=== PATIENT | female | born 1950 | race Hispanic/Latino ===

== ENCOUNTER 2021-02-12 10:30 | Inpatient (IN) | payer MEDICARE, OTHER ==
[2021-02-12] MEDS ORDERED: SUCCINYLCHOLINE CHLORIDE 200 MG/10 ML INJ MDV ONE (10:33)
[2021-02-12] MEDS ORDERED: ETOMIDATE 20 MG/10 ML INJ IV ONE ×2 (10:33→10:36)
[2021-02-12] MEDS ORDERED: SUCCINYLCHOLINE CHLORIDE 200 MG/10 ML INJ MDV IV ONE (10:36)
[2021-02-12] MEDS ORDERED: MINERAL OIL/PETROLATUM, WHITE OPHTH OINT 3.5 GM OU PRN (10:49)
[2021-02-12] MEDS ORDERED: LIP THERAPY VASELINE TP PRN (10:49)
--- NOTE | 2021-02-12 10:56 | Emergency Department Report ---
ED Altered Mental Status HPI - General Stated Complaint: DIFFICULTY BREATHING Time Seen by Provider: 02/12/21 10:47 Source: EMS - History of Present Illness Initial Comments: Patient is 71 years old female with history of congestive heart failure. Patient brought to the emergency room via EMS from home for evaluation of altered mental status and difficulty in breathing. EMS stated that patient initially was confused and then she became unresponsive. Upon arrival to the ER patient is altered, confused and pulling her lines and BiPAP. Oxygen saturation is 70% on BiPAP. Immediate decision to intubate is made by me. Using a glide scope patient immediately intubated and I visualized the tube passing through the vocal cords. Patient then became PEA and ACLS protocol immediately initiated and patient received 2 rounds of CPR, epinephrine sodium bicarb and calcium chloride. Patient regained her pulse. Unable to obtain any more information at this moment. MD Complaint: altered mental status, confusion, decreased responsiveness -: This morning Consistency of Symptoms: getting worse - Related Data Home Medications Medication Instructions Recorded Confirmed Last Taken AtorvaSTATin [Lipitor] 40 mg PO QHS 02/12/21 02/12/21 Unknown Metoprolol Succinate [Kapspargo 25 mg PO QDAY 02/12/21 02/12/21 Unknown Sprinkle] Spironolactone [Aldactone] 25 mg PO QDAY 02/12/21 02/12/21 Unknown amLODIPine [Norvasc] 5 mg PO DAILY 02/12/21 02/12/21 Unknown glipiZIDE [Glucotrol] 5 mg PO BID 02/12/21 02/12/21 Unknown metFORMIN [Glucophage] 100 mg PO QDAY 02/12/21 02/12/21 Unknown Allergies Allergy/AdvReac Type Severity Reaction Status Date / Time Unable to Assess Allergy Unverified 02/12/21 12:42 ED Review of Systems ROS: Stated complaint: DIFFICULTY BREATHING Other details as noted in HPI Comment: Unobtainable due to pts medical conditions ED Past Medical Hx - Medications Home Medications: Home Medications Medication Instructions Recorded Confirmed Last Taken Type AtorvaSTATin [Lipitor] 40 mg PO QHS 02/12/21 02/12/21 Unknown History Metoprolol Succinate [Kapspargo 25 mg PO QDAY 02/12/21 02/12/21 Unknown History Sprinkle] Spironolactone [Aldactone] 25 mg PO QDAY 02/12/21 02/12/21 Unknown History amLODIPine [Norvasc] 5 mg PO DAILY 02/12/21 02/12/21 Unknown History glipiZIDE [Glucotrol] 5 mg PO BID 02/12/21 02/12/21 Unknown History metFORMIN [Glucophage] 100 mg PO QDAY 02/12/21 02/12/21 Unknown History ED Physical Exam - General Limitations: Altered Mental Status General appearance: obtunded, in distress - Head Head exam: Present: atraumatic, normocephalic, normal inspection - Eye Eye exam: Present: normal appearance, PERRL - ENT ENT exam: Present: normal exam, normal orophraynx, mucous membranes moist - Neck Neck exam: Present: normal inspection, full ROM. Absent: tenderness, meningismus - Respiratory Respiratory exam: Present: respiratory distress, rales, rhonchi, accessory muscle use, decreased breath sounds, prolonged expiratory - Cardiovascular Cardiovascular Exam: Present: tachycardia - GI/Abdominal GI/Abdominal exam: Present: soft. Absent: distended - Extremities Exam Extremities exam: Present: normal inspection, normal capillary refill, pedal edema - Neurological Exam Neurological exam: Present: altered - Skin Skin exam: Present: warm, intact, ecchymosis ED Course Vital Signs 02/12/21 02/12/21 02/12/21 10:34 10:46 10:58 Temperature Pulse Rate 134 H 118 H Respiratory 21 Rate Blood Pressure 131/80 126/78 O2 Sat by Pulse 74 L 99 100 Oximetry 02/12/21 02/12/21 02/12/21 11:00 11:38 11:45 Temperature Pulse Rate 118 H 116 H 84 Respiratory 20 14 21 Rate Blood Pressure 126/78 142/41 131/80 O2 Sat by Pulse 100 93 Oximetry 02/12/21 02/12/21 02/12/21 12:01 12:15 12:31 Temperature Pulse Rate 80 121 H 127 H Respiratory 18 23 14 Rate Blood Pressure 72/32 120/33 97/79 O2 Sat by Pulse 100 100 100 Oximetry 02/12/21 02/12/21 02/12/21 12:45 13:00 13:15 Temperature Pulse Rate 122 H 113 H 112 H Respiratory 18 13 17 Rate Blood Pressure 94/53 100/40 100/30 O2 Sat by Pulse 100 100 100 Oximetry 02/12/21 02/12/21 02/12/21 13:31 13:45 13:47 Temperature 97.7 F Pulse Rate 97 H Respiratory 13 16 Rate Blood Pressure 92/36 103/50 O2 Sat by Pulse 100 100 Oximetry 02/12/21 14:08 Temperature Pulse Rate 97 H Respiratory 32 H Rate Blood Pressure 123/105 O2 Sat by Pulse 100 Oximetry - Reevaluation(s) Reevaluation #1: 02/12/21 14:02 Patient extubated herself. Patient now is alert and oriented and asking if he can lift the head of the bed up. I will give her a trial of BiPAP. Reevaluation #2: 02/12/21 14:20 I discussed the patient with Mr. Balderrama, patient . He stated that she was complaining of shortness of breath for the last week however her symptoms get worse this morning. He stated that she was admitted for 1/2 years ago at [facility] for double pneumonia. He stated that at that time they told him that she has mild congestive heart failure. He stated that approximately 1 year ago she required thoracocentesis in the pole approximately 3 L of fluids from her lung and she felt much better after that. He stated that she is fully vaccinated against COVID-19. He stated that the second dose of Pfizer she got November 13. He is not sure if the patient is full code or DNR. He stated that he will look in her paper and he will let us know. - Central Line Placement Right IJ Consent Obtained: emergent situation Time Out Performed: Yes Patient Placed on Monitor/Pulse Ox: Yes MD Prep: mask, gown, gloves Central Line Prep: Povidone-Iodine 1%, Chlorhexidine scrub, sterile drapes applied Local Anesthesia Used: Lidocaine 1% Ultrasound Used for Placement: Yes Central Line Lumen Inserted: triple Reason for Insertion: Volume Resuscitation Bloods Obtained for Lab: Yes Central Line Position: good blood return, sutured in place with 2-0 Dressing Applied: Tegaderm, sterile gauze/tape Post Procedure X-Ray: tip of catheter in good p Patient Tolerated Procedure: well, no complications Complications: none - Intubation Time Out Performed: Yes Sedative: Etomidate Paralytic: Succinylcholine Laryngoscope: Bakari Size: 4 ET Tube Size: 7.5 Tube Placement Confirmation: visualized tube passing t, equal breath sounds bilat, no breath sounds over epi, confirmation by capnometr Patient Tolerated Procedure: well, no complications Intubation Complications: none - Lab Data Result diagrams: 02/12/21 14:25 02/12/21 12:20 Lab Results 02/12/21 02/12/21 02/12/21 Range/Units 10:45 11:59 12:20 WBC (4.5-11.0) K/mm3 RBC (3.65-5.03) M/mm3 Hgb (10.1-14.3) gm/dl Hct (30.3-42.9) % MCV (79-97) fl MCH (28-32) pg MCHC (30-34) % RDW (13.2-15.2) % Plt Count (140-440) K/mm3 Seg Neutrophils % PT (12.2-14.9) Sec. INR (0.87-1.13) APTT (24.2-36.6) Sec. ABG pH 7.265 L (7.320-7.450) POC ABG pCO2 49.9 H (32.0-48.0) mmHg POC ABG pO2 168.3 H (83-108) mmHg POC ABG HCO3 22.1 ABG O2 Saturation 99.1 (0-100) POC ABG Base Excess -4.8 ABG Hemoglobin 10.1 L (12.0-17.5) ABG Oxyhemoglobin 98.5 H (94-98) ABG Methemoglobin 0.3 (0.0-1.5) ABG Sodium 138.1 (136.0-145.0) mmol/L ABG Potassium 4.5 (3.40-4.50) mmol/L ABG Chloride 105.0 (98-107) mmol/L ABG Glucose 330 H (65-95) mg/dL Carboxyhemoglobin 0.3 L (0.5-1.5) FiO2 % 100.0 Sodium (137-145) mmol/L Potassium (3.6-5.0) mmol/L Chloride (98-107) mmol/L Carbon Dioxide (22-30) mmol/L Anion Gap mmol/L BUN (7-17) mg/dL Creatinine (0.6-1.2) mg/dL Estimated GFR ml/min BUN/Creatinine Ratio % Glucose (65-100) mg/dL POC Glucose 291 H (70-105) mg/dL Lactic Acid (0.7-2.0) mmol/L Calcium (8.4-10.2) mg/dL Total Bilirubin (0.1-1.2) mg/dL Direct Bilirubin (0-0.2) mg/dL Indirect Bilirubin mg/dL AST (5-40) units/L ALT (7-56) units/L Alkaline Phosphatase (35-129) units/L Ammonia (25-60) umol/L Troponin T 0.058 H (0.00-0.029) ng/mL NT-Pro-B Natriuret Pep (0-900) pg/mL Total Protein (6.3-8.2) g/dL Albumin (3.9-5) g/dL Albumin/Globulin Ratio % Triglycerides (2-149) mg/dL Cholesterol (50-199) mg/dL LDL Cholesterol Direct (50-130) mg/dL HDL Cholesterol (40-59) mg/dL Cholesterol/HDL Ratio % Arterial Blood Glucose 330 H (65-95) mg/dL Arterial Blood Ionized Calcium 5.1 (4.6-5.3) mg/dL 02/12/21 02/12/21 02/12/21 Range/Units 12:20 12:20 12:20 WBC (4.5-11.0) K/mm3 RBC (3.65-5.03) M/mm3 Hgb (10.1-14.3) gm/dl Hct (30.3-42.9) % MCV (79-97) fl MCH (28-32) pg MCHC (30-34) % RDW (13.2-15.2) % Plt Count (140-440) K/mm3 Seg Neutrophils % PT 13.8 (12.2-14.9) Sec. INR 1.01 (0.87-1.13) APTT 22.9 L (24.2-36.6) Sec. ABG pH (7.320-7.450) POC ABG pCO2 (32.0-48.0) mmHg POC ABG pO2 (83-108) mmHg POC ABG HCO3 ABG O2 Saturation (0-100) POC ABG Base Excess ABG Hemoglobin (12.0-17.5) ABG Oxyhemoglobin (94-98) ABG Methemoglobin (0.0-1.5) ABG Sodium (136.0-145.0) mmol/L ABG Potassium (3.40-4.50) mmol/L ABG Chloride (98-107) mmol/L ABG Glucose (65-95) mg/dL Carboxyhemoglobin (0.5-1.5) FiO2 % Sodium 142 (137-145) mmol/L Potassium 4.7 (3.6-5.0) mmol/L Chloride 103.1 (98-107) mmol/L Carbon Dioxide 21 L (22-30) mmol/L Anion Gap 23 mmol/L BUN 20 H (7-17) mg/dL Creatinine 1.7 H (0.6-1.2) mg/dL Estimated GFR 30 ml/min BUN/Creatinine Ratio 12 % Glucose 278 H (65-100) mg/dL POC Glucose (70-105) mg/dL Lactic Acid 4.50 H* (0.7-2.0) mmol/L Calcium 9.9 (8.4-10.2) mg/dL Total Bilirubin 0.60 (0.1-1.2) mg/dL Direct Bilirubin 0.3 H (0-0.2) mg/dL Indirect Bilirubin 0.3 mg/dL AST 38 (5-40) units/L ALT 19 (7-56) units/L Alkaline Phosphatase 68 (35-129) units/L Ammonia (25-60) umol/L Troponin T 0.056 H (0.00-0.029) ng/mL NT-Pro-B Natriuret Pep (0-900) pg/mL Total Protein 6.4 (6.3-8.2) g/dL Albumin 3.4 L (3.9-5) g/dL Albumin/Globulin Ratio 1.1 % Triglycerides 94 (2-149) mg/dL Cholesterol 99 (50-199) mg/dL LDL Cholesterol Direct 40 L (50-130) mg/dL HDL Cholesterol 42 (40-59) mg/dL Cholesterol/HDL Ratio 2.35 % Arterial Blood Glucose (65-95) mg/dL Arterial Blood Ionized Calcium (4.6-5.3) mg/dL 02/12/21 02/12/21 02/12/21 Range/Units 12:20 12:20 14:25 WBC 30.4 H (4.5-11.0) K/mm3 RBC 3.34 L (3.65-5.03) M/mm3 Hgb 9.2 L (10.1-14.3) gm/dl Hct 31.5 (30.3-42.9) % MCV 94 (79-97) fl MCH 28 (28-32) pg MCHC 29 L (30-34) % RDW 17.0 H (13.2-15.2) % Plt Count 458 H (140-440) K/mm3 Seg Neutrophils % Academic Interventionist PT (12.2-14.9) Sec. INR (0.87-1.13) APTT (24.2-36.6) Sec. ABG pH (7.320-7.450) POC ABG pCO2 (32.0-48.0) mmHg POC ABG pO2 (83-108) mmHg POC ABG HCO3 ABG O2 Saturation (0-100) POC ABG Base Excess ABG Hemoglobin (12.0-17.5) ABG Oxyhemoglobin (94-98) ABG Methemoglobin (0.0-1.5) ABG Sodium (136.0-145.0) mmol/L ABG Potassium (3.40-4.50) mmol/L ABG Chloride (98-107) mmol/L ABG Glucose (65-95) mg/dL Carboxyhemoglobin (0.5-1.5) FiO2 % Sodium (137-145) mmol/L Potassium (3.6-5.0) mmol/L Chloride (98-107) mmol/L Carbon Dioxide (22-30) mmol/L Anion Gap mmol/L BUN (7-17) mg/dL Creatinine (0.6-1.2) mg/dL Estimated GFR ml/min BUN/Creatinine Ratio % Glucose (65-100) mg/dL POC Glucose (70-105) mg/dL Lactic Acid (0.7-2.0) mmol/L Calcium (8.4-10.2) mg/dL Total Bilirubin (0.1-1.2) mg/dL Direct Bilirubin (0-0.2) mg/dL Indirect Bilirubin mg/dL AST (5-40) units/L ALT (7-56) units/L Alkaline Phosphatase (35-129) units/L Ammonia 39.0 (25-60) umol/L Troponin T (0.00-0.029) ng/mL NT-Pro-B Natriuret Pep 6717 H (0-900) pg/mL Total Protein (6.3-8.2) g/dL Albumin (3.9-5) g/dL Albumin/Globulin Ratio % Triglycerides (2-149) mg/dL Cholesterol (50-199) mg/dL LDL Cholesterol Direct (50-130) mg/dL HDL Cholesterol (40-59) mg/dL Cholesterol/HDL Ratio % Arterial Blood Glucose (65-95) mg/dL Arterial Blood Ionized Calcium (4.6-5.3) mg/dL - EKG Data -: EKG Interpreted by Me EKG shows normal: sinus rhythm Rate: tachycardia Interpretation: no acute changes - Radiology Data Radiology results: report reviewed - Medical Decision Making Patient is 71 years old female with history of congestive heart failure. Patient brought to the emergency room via EMS from home for evaluation of altered mental status and difficulty in breathing. EMS stated that patient initially was confused and then she became unresponsive. Upon arrival to the ER patient is altered, confused and pulling her lines and BiPAP. Oxygen saturation is 70% on BiPAP. Immediate decision to intubate is made by me. Using a glide scope patient immediately intubated and I visualized the tube passing through the vocal cords. Patient then became PEA and ACLS protocol immediately initiated and patient received 2 rounds of CPR, epinephrine sodium bicarb and calcium chloride. Patient regained her pulse. Unable to obtain any more information at this moment. Labs reviewed and showed a white blood cells of 30,000. Patient received Zosyn. Sepsis protocol initiated. Lactic acid is 4.2. Chest x-ray showed bilateral pleural effusion with pulmonary edema. I discussed the patient with Dr. Daugherty, he agreed to admit the patient to medical service for further management. Critical Care Time: Yes Critical care time in (mins) excluding proc time.: 45 Critical care attestation.: If time is entered above; I have spent that time in minutes in the direct care of this critically ill patient, excluding procedure time. ED Disposition Clinical Impression: Cardiopulmonary arrest, Acute respiratory failure, Sepsis Disposition: OP ADMIT IP TO THIS HOSP Is pt being admited?: Yes Condition: Stable Referrals: PRIMARY CARE,MD [Primary Care Provider] - 3-5 Days
[2021-02-12] MEDS ORDERED: FAMOTIDINE 20 MG/2 ML INJ IV SCH ×2 (11:00→22:00)
[2021-02-12] MEDS ORDERED: SODIUM CHLORIDE 0.9% 500 ML 500 ML IV ONE (11:08)
--- NOTE | 2021-02-12 11:41 | Cat Scan Report ---
CT head/brain wo con INDICATION: Altered Mental Status. TECHNIQUE: Routine CT head. All CT scans at this location are performed using CT dose reduction for A MADISON by means of automated exposure control. COMPARISON: None. FINDINGS: Intracranial: Brennan-white matter differentiation is maintained. No intracranial hemorrhage. No extra a xial collection. No hydrocephalus. No herniation. Sinuses: Paranasal sinuses and mastoid air cells are essentially clear. Orbits: Globes are intact. Calvarium: No acute fracture. IMPRESSION: 1. No acute intracranial abnormality. Signer Name: Gold Ritchie MD Signed: 02/12/2021 11:37 AM Workstation Name: [id number]
--- NOTE | 2021-02-12 11:44 | XRay Report ---
CHEST 1 VIEW 02/12/2021 10:36 AM INDICATION / CLINICAL INFORMATION: Altered Mental Status. COMPARISON: None available. FINDINGS: SUPPORT DEVICES: None. HEART / MEDIASTINUM: No significant abnormality. LUNGS / PLEURA: There is a small right pleural effusion and a moderate left pleural effusion. General ized bilateral interstitial opacities likely represent atelectasis/edema. No pneumothorax. ADDITIONAL FINDINGS: Mild degenerative changes are seen along the spine. IMPRESSION: Pleural effusions, left greater than right, with probable associated atelectasis/edema. Signer Name: Lauri Tony MD Signed: 02/12/2021 11:40 AM Workstation Name: [id number]
[2021-02-12] MEDS ORDERED: NORepinephrine/NS 4 MG-250 ML 0 MG/0 ML BAG IV ONE (11:53)
[2021-02-12] MEDS ORDERED: DOPamine/D5W 800 MG/250 ML 800 MG/250 ML BAG IV ONE ×2 (11:55→12:00)
--- NOTE | 2021-02-12 12:05 | XRay Report ---
CHEST - 1 VIEW INDICATION: ET TUBE PLACEMENT COMPARISON: Earlier today FINDINGS: SUPPORT DEVICES: New endotracheal tube and nasogastric tubes in satisfactory position. HEART: Stable cardiomediastinal silhouette. LUNGS/PLEURA: Persistent moderate-sized left and trace right pleural effusions with otherwise no sig nificant airspace disease. ADDITIONAL FINDINGS: None. IMPRESSION: 1. New support devices in satisfactory position. 2. Bilateral pleural effusions. Signer Name: Gabriele Ledesma MD Signed: 02/12/2021 12:01 PM Workstation Name: [id number]
[2021-02-12] MEDS ORDERED: NORepinephrine/NS 4 MG-250 ML 4 MG/250 ML BAG IV SCH (13:00)
[2021-02-12 13:29] LABS: INR 1.01 (0.87-1.13); Partial Thromboplastin Time 22.9 Sec. (24.2-36.6)
--- NOTE | 2021-02-12 13:34 | XRay Report ---
CHEST 1 VIEW INDICATION: IJ CENTRAL LINE PLACEMENT. COMPARISON: Earlier today at 1141 hours FINDINGS: Support devices: A right IJ venous catheter has been inserted which terminates near the cavoatrial ju nction. Endotracheal tube and nasogastric tube remain in good position. Heart: Within normal limits. Lungs/Pleura: Increased pulmonary venous congestion and small pleural effusions is demonstrated since the previous exam. There are mild to moderate atelectatic changes at the lung bases. No pneumothorax . Additional findings: None. IMPRESSION: Right IJ venous catheter placement as described. No pneumothorax. Mild interval worsening of volume overload. Signer Name: Pedro Desir Jr, MD Signed: 02/12/2021 1:29 PM Workstation Name: [id number]
[2021-02-12 13:37] LABS: Albumin 3.4 g/dL (3.9-5); Bilirubin,Direct 0.3 mg/dL (0-0.2); Calcium 9.9 mg/dL (8.4-10.2)
[2021-02-12] MEDS: PIPERACILLIN/TAZOBACTAM 3.375 3.375 GM/50 ML BAG IV ONE ×2 (13:39→17:31)
[2021-02-12] MEDS: NORepinephrine/NS 4 MG-250 ML 4 MG/250 ML BAG IV SCH (13:41)
[2021-02-12] MEDS ORDERED: FUROSEMIDE 40 MG/4 ML INJ IV ONE (14:03)
[2021-02-12 14:11] LABS: Chol/HDL Ratio 2.35 %
[2021-02-12 15:02] LABS: Mean Corpuscular HGB Conc 29 % (30-34); Mean Corpuscular Volume 94 fl (79-97); Platelet Count 458 K/mm3 (140-440); Red Blood Count 3.34 M/mm3 (3.65-5.03)
[2021-02-12 15:17] LABS: Hematocrit 31.5 % (30.3-42.9); Hemoglobin 9.2 gm/dl (10.1-14.3)
[2021-02-12 18:14] LABS: Bilirubin,Urine NEG (Negative); Blood,Urine NEG (Negative); Color,Urine Amber (Yellow); Granular Casts,Urine 5 /LPF; Hyaline Casts,Urine 5 /LPF; Mucus,Urine 1+ /HPF; Urobilinogen,Urine < 2.0 mg/dL (<2.0)
[2021-02-12 18:16] LABS: Protein,Urine >500 mg/dL (Negative)
[2021-02-12 18:21] LABS: Band Neutrophils # (Manual) 0.3 K/mm3; Basophils % (Manual) 0.5 % (0.0-1.8); Myelocytes # (Manual) 0.2 K/mm3; Total Cells Counted 200
[2021-02-12 18:22] LABS: Anisocytosis 1+; Burr Cells 1+; Large Platelets Few; Ovalocytes Few; Platelet Estimate Consistent w Auto; Poikilocytosis 1+
[2021-02-12] MEDS ORDERED: CALCIUM CHLORIDE 1,000 MG/10 ML SYRINGE IV ONE (20:18)
[2021-02-12] MEDS ORDERED: SODIUM BICARB 8.4% 50 MEQ/50 ML SYRINGE IV ONE (20:18)
[2021-02-12] MEDS ORDERED: EPINEPHrine 1 MG/10 ML SYRINGE ONE (20:18)
--- NOTE | 2021-02-12 20:43 | History and Physical Report ---
History of Present Illness Date of examination: 02/12/21 Date of admission: 02/12/21 15:39 Chief complaint: Severe shortness of breath since a.m. History of present illness: 62 female with history of COPD and CHF, hypertension and hyperlipidemia and type 2 diabetes comes in for severe shortness of breath since morning. Her initial oxygen saturation were 70% in spite of being BiPAP. Patient was intubated in the emergency room. Patient then had pulseless electrical activity and ACLS protocol was initiated. Patient revived after 2 rounds of CPR epinephrine and sodium bicarbonate calcium chloride. In the ER while extubated patient was very agitated and self extubated. Patient is on BiPAP at the time of my examination. No chest pain. Shortness of breath and wheezing. Past History Past Medical History: COPD, heart failure, hypertension, hyperlipidemia Past Surgical History: Other (Surgical history not a viable) Social history: lives with family, smoking, full code Family history: hypertension Medications and Allergies Allergies Allergy/AdvReac Type Severity Reaction Status Date / Time Penicillins Allergy Unknown Verified 02/12/21 17:19 Home Medications Medication Instructions Recorded Confirmed Last Taken Type AtorvaSTATin [Lipitor] 40 mg PO QHS 02/12/21 02/12/21 Unknown History Metoprolol Succinate [Kapspargo 25 mg PO QDAY 02/12/21 02/12/21 Unknown History Sprinkle] Spironolactone [Aldactone] 25 mg PO QDAY 02/12/21 02/12/21 Unknown History amLODIPine [Norvasc] 5 mg PO DAILY 02/12/21 02/12/21 Unknown History glipiZIDE [Glucotrol] 5 mg PO BID 02/12/21 02/12/21 Unknown History metFORMIN [Glucophage] 100 mg PO QDAY 02/12/21 02/12/21 Unknown History Active Meds: Active Medications Famotidine (Famotidine 20 Mg/2 Ml Inj) 20 mg IV BID AV Last Admin: 02/12/21 13:38 Dose: 20 mg Documented by: Hydrophilic Ointment (Lip Therapy Vaseline) 1 applic TP Q2HR PRN PRN Reason: Dry Lips Propofol (Diprivan 10 Mg/Ml) 1,000 mg in 100 mls @ 3.24 mls/hr IV TITR AV; Protocol Last Admin: 02/12/21 11:05 Dose: 5 mcg/kg/min, 3.24 mls/hr Documented by: Norepinephrine (Levophed Drip 4 Mg/Ns 250 Ml) 4 mg in 250 mls @ 7.5 mls/hr IV TITR AV; Protocol Last Titration: 02/12/21 18:35 Dose: 6 mcg/min, 22.5 mls/hr Documented by: Dopamine HCl/Dextrose (Intropin Drip 800 Mg/D5w 250 Ml) 800 mg in 250 mls @ 4.05 mls/hr IV TITR ONE; Protocol Stop: 02/15/21 01:43 Last Admin: 02/12/21 11:55 Dose: 2 mcg/kg/min, 4.05 mls/hr Documented by: Norepinephrine (Levophed Drip 4 Mg/Ns 250 Ml) 4 mg in 250 mls @ 7.5 mls/hr IV TITR AV; Protocol Multi-Ingred Cream/Lotion/Oil/Oint (Mineral Oil/Petrolatum, White Ophth Oint 3.5 Gm) 1 applic OU Q4HR PRN PRN Reason: Dry Eye(s) Senna/Docusate Sodium (Sennosides/Docusate Sodium 8.6/50 Mg Tab) 1 tab FEEDTUBE BID AV Review of Systems All systems: negative Cardiovascular: shortness of breath, dyspnea on exertion Respiratory: cough, shortness of breath, congestion, wheezing Genitourinary Female: no urgency, no stress incontinence Integumentary: no rash, no pruritis, no redness Neurological: no seizures, no syncope, no tremors Psychiatric: no memory loss, no change in sleep habits, no sleep disturbances, no hypersomnia Endocrine: no cold intolerance, no heat intolerance, no polyphagia, no polydipsia Hematologic/Lymphatic: no easy bruising, no easy bleeding Allergic/Immunologic: no urticaria, no allergic rhinitis, no wheezing Exam - Constitutional Vitals: Temp Pulse Resp BP Pulse Ox 97.7 F 102 H 15 114/43 89 02/12/21 13:47 02/12/21 20:15 02/12/21 20:15 02/12/21 20:15 02/12/21 20:15 General appearance: Present: severe distress, well-nourished - EENT Eyes: Present: PERRL ENT: hearing intact, clear oral mucosa - Neck Neck: Present: supple, normal ROM - Respiratory Respiratory effort: normal Respiratory: bilateral: diminished, rhonchi, wheezing - Cardiovascular Heart rate: 78 Rhythm: regular Heart Sounds: Present: S1 & S2. Absent: rub, click - Extremities Extremities: no ischemia, pulses intact, pulses symmetrical, No edema Peripheral Pulses: within normal limits - Abdominal General gastrointestinal: Present: soft, non-tender, non-distended, normal bowel sounds Female genitourinary: Present: normal - Rectal Rectal Exam: deferred - Integumentary Integumentary: Present: clear, warm, dry - Musculoskeletal Musculoskeletal: gait normal, strength equal bilaterally - Psychiatric Psychiatric: appropriate mood/affect, intact judgment & insight - Neurologic Neurologic: CNII-XII intact, moves all extremities - Allied Health Allied health notes reviewed: nursing, case management HEART Score - HEART Score History: Moderately suspicious EKG: Non-specific Age: > 65 Risk factors: 1-2 risk factors Troponin: Troponin T 0.056 ng/mL (0.00-0.029) H 02/12/21 12:20 Troponin T 0.058 ng/mL (0.00-0.029) H 02/12/21 12:20 Troponin: < normal limit HEART Score: 5 - Critical Actions Critical Actions: 4-6 pts:12-16.6% risk of adverse cardiac event. Should be admi tted Results - Labs CBC & Chem 7: 02/12/21 14:25 02/12/21 12:20 Labs: Laboratory Last Values WBC 30.4 K/mm3 (4.5-11.0) H 02/12/21 14:25 RBC 3.34 M/mm3 (3.65-5.03) L 02/12/21 14:25 Hgb 9.2 gm/dl (10.1-14.3) L 02/12/21 14:25 Hct 31.5 % (30.3-42.9) 02/12/21 14:25 MCV 94 fl (79-97) 02/12/21 14:25 MCH 28 pg (28-32) 02/12/21 14:25 MCHC 29 % (30-34) L 02/12/21 14:25 RDW 17.0 % (13.2-15.2) H 02/12/21 14:25 Plt Count 458 K/mm3 (140-440) H 02/12/21 14:25 Add Manual Diff Complete 02/12/21 14:25 Total Counted 200 02/12/21 14:25 Seg Neutrophils % [place] [employer] 02/12/21 14:25 Seg Neuts % (Manual) 90.5 % (40.0-70.0) H 02/12/21 14:25 Band Neutrophils % 1.0 % 02/12/21 14:25 Lymphocytes % (Manual) 0.5 % (13.4-35.0) L 02/12/21 14:25 Monocytes % (Manual) 6.0 % (0.0-7.3) 02/12/21 14:25 Basophils % (Manual) 0.5 % (0.0-1.8) 02/12/21 14:25 Metamyelocytes % 1.0 % 02/12/21 14:25 Myelocytes % 0.5 % 02/12/21 14:25 Nucleated RBC % Not Reportable 02/12/21 14:25 Seg Neutrophils # Man 27.5 K/mm3 (1.8-7.7) H 02/12/21 14:25 Band Neutrophils # 0.3 K/mm3 02/12/21 14:25 Lymphocytes # (Manual) 0.2 K/mm3 (1.2-5.4) L 02/12/21 14:25 Abs React Lymphs (Man) 0.0 K/mm3 02/12/21 14:25 Monocytes # (Manual) 1.8 K/mm3 (0.0-0.8) H 02/12/21 14:25 Eosinophils # (Manual) 0.0 K/mm3 (0.0-0.4) 02/12/21 14:25 Basophils # (Manual) 0.2 K/mm3 (0.0-0.1) H 02/12/21 14:25 Metamyelocytes # 0.3 K/mm3 02/12/21 14:25 Myelocytes # 0.2 K/mm3 02/12/21 14:25 Promyelocytes # 0.0 K/mm3 02/12/21 14:25 Blast Cells # 0.0 K/mm3 02/12/21 14:25 WBC Morphology Not Reportable 02/12/21 14:25 Hypersegmented Neuts Not Reportable 02/12/21 14:25 Hyposegmented Neuts Not Reportable 02/12/21 14:25 Hypogranular Neuts Not Reportable 02/12/21 14:25 Smudge Cells Not Reportable 02/12/21 14:25 Toxic Granulation Not Reportable 02/12/21 14:25 Toxic Vacuolation Not Reportable 02/12/21 14:25 Dohle Bodies Not Reportable 02/12/21 14:25 Pelger-Huet Anomaly Not Reportable 02/12/21 14:25 Dawn Rods Not Reportable 02/12/21 14:25 Platelet Estimate Consistent w auto 02/12/21 14:25 Clumped Platelets Not Reportable 02/12/21 14:25 Plt Clumps, EDTA Not Reportable 02/12/21 14:25 Large Platelets Few 02/12/21 14:25 Giant Platelets Not Reportable 02/12/21 14:25 Platelet Satelliting Not Reportable 02/12/21 14:25 Plt Morphology Comment Not Reportable 02/12/21 14:25 RBC Morphology Not Reportable 02/12/21 14:25 Dimorphic RBCs Not Reportable 02/12/21 14:25 Polychromasia Not Reportable 02/12/21 14:25 Hypochromasia Not Reportable 02/12/21 14:25 Poikilocytosis 1+ 02/12/21 14:25 Anisocytosis 1+ 02/12/21 14:25 Microcytosis Not Reportable 02/12/21 14:25 Macrocytosis Not Reportable 02/12/21 14:25 Spherocytes Not Reportable 02/12/21 14:25 Pappenheimer Bodies Not Reportable 02/12/21 14:25 Sickle Cells Not Reportable 02/12/21 14:25 Target Cells Not Reportable 02/12/21 14:25 Tear Drop Cells Not Reportable 02/12/21 14:25 Ovalocytes Few 02/12/21 14:25 Helmet Cells Not Reportable 02/12/21 14:25 [place] Bodies Not Reportable 02/12/21 14:25 [place] Rings Not Reportable 02/12/21 14:25 Y[place]a Cells 1+ 02/12/21 14:25 Bite Cells Not Reportable 02/12/21 14:25 Crenated Cell Not Reportable 02/12/21 14:25 Elliptocytes Not Reportable 02/12/21 14:25 Acanthocytes (Spur) Not Reportable 02/12/21 14:25 Rouleaux Not Reportable 02/12/21 14:25 Hemoglobin C Crystals Not Reportable 02/12/21 14:25 Schistocytes Not Reportable 02/12/21 14:25 Malaria parasites Not Reportable 02/12/21 14:25 [place] Bodies Not Reportable 02/12/21 14:25 Hem Pathologist Commnt No 02/12/21 14:25 PT 13.8 Sec. (12.2-14.9) 02/12/21 12:20 INR 1.01 (0.87-1.13) 02/12/21 12:20 APTT 22.9 Sec. (24.2-36.6) L 02/12/21 12:20 ABG pH 7.275 (7.320-7.450) L 02/12/21 16:56 POC ABG pCO2 44.6 mmHg (32.0-48.0) 02/12/21 16:56 POC ABG pO2 185.8 mmHg (83-108) H 02/12/21 16:56 POC ABG HCO3 20.3 02/12/21 16:56 ABG O2 Saturation 99.1 (0-100) 02/12/21 16:56 POC ABG Base Excess -6.2 02/12/21 16:56 ABG Hemoglobin 9.5 (12.0-17.5) L 02/12/21 16:56 ABG Oxyhemoglobin 98.6 (94-98) H 02/12/21 16:56 ABG Methemoglobin 0.2 (0.0-1.5) 02/12/21 16:56 ABG Sodium 138.3 mmol/L (136.0-145.0) 02/12/21 16:56 ABG Potassium 4.7 mmol/L (3.40-4.50) H 02/12/21 16:56 ABG Chloride 104.0 mmol/L (98-107) 02/12/21 16:56 ABG Glucose 330 mg/dL (65-95) H 02/12/21 16:56 ABG Lactate 2.74 (0.18-30.0) 02/12/21 16:56 Carboxyhemoglobin 0.3 (0.5-1.5) L 02/12/21 16:56 FiO2 % 80.0 02/12/21 16:56 Sodium 142 mmol/L (137-145) 02/12/21 12:20 Potassium 4.7 mmol/L (3.6-5.0) 02/12/21 12:20 Chloride 103.1 mmol/L (98-107) 02/12/21 12:20 Carbon Dioxide 21 mmol/L (22-30) L 02/12/21 12:20 Anion Gap 23 mmol/L 02/12/21 12:20 BUN 20 mg/dL (7-17) H 02/12/21 12:20 Creatinine 1.7 mg/dL (0.6-1.2) H 02/12/21 12:20 Estimated GFR 30 ml/min 02/12/21 12:20 BUN/Creatinine Ratio 12 % 02/12/21 12:20 Glucose 278 mg/dL (65-100) H 02/12/21 12:20 POC Glucose 307 mg/dL (70-105) H 02/12/21 20:35 Lactic Acid 4.50 mmol/L (0.7-2.0) H* 02/12/21 16:46 Calcium 9.9 mg/dL (8.4-10.2) 02/12/21 12:20 Total Bilirubin 0.60 mg/dL (0.1-1.2) 02/12/21 12:20 Direct Bilirubin 0.3 mg/dL (0-0.2) H 02/12/21 12:20 Indirect Bilirubin 0.3 mg/dL 02/12/21 12:20 AST 38 units/L (5-40) 02/12/21 12:20 ALT 19 units/L (7-56) 02/12/21 12:20 Alkaline Phosphatase 68 units/L (35-129) 02/12/21 12:20 Ammonia 39.0 umol/L (25-60) 02/12/21 12:20 Troponin T 0.056 ng/mL (0.00-0.029) H 02/12/21 12:20 Troponin T 0.058 ng/mL (0.00-0.029) H 02/12/21 12:20 NT-Pro-B Natriuret Pep 6717 pg/mL (0-900) H 02/12/21 12:20 Total Protein 6.4 g/dL (6.3-8.2) 02/12/21 12:20 Albumin 3.4 g/dL (3.9-5) L 02/12/21 12:20 Albumin/Globulin Ratio 1.1 % 02/12/21 12:20 Triglycerides 94 mg/dL (2-149) 02/12/21 12:20 Cholesterol 99 mg/dL (50-199) 02/12/21 12:20 LDL Cholesterol Direct 40 mg/dL (50-130) L 02/12/21 12:20 HDL Cholesterol 42 mg/dL (40-59) 02/12/21 12:20 Cholesterol/HDL Ratio 2.35 % 02/12/21 12:20 Arterial Blood Glucose 330 mg/dL (65-95) H 02/12/21 16:56 Arterial Blood Ionized Calcium 5.1 mg/dL (4.6-5.3) 02/12/21 11:59 Urine Color Vikki (Yellow) 02/12/21 Unknown Urine Turbidity Cloudy (Clear) 02/12/21 Unknown Urine pH 5.0 (5.0-7.0) 02/12/21 Unknown Ur Specific [place] 1.017 (1.003-1.030) 02/12/21 Unknown Urine Protein >500 mg/dL (Negative) 02/12/21 Unknown Urine Glucose (UA) >=500 mg/dL (Negative) 02/12/21 Unknown Urine Ketones Neg mg/dL (Negative) 02/12/21 Unknown Urine Blood Neg (Negative) 02/12/21 Unknown Urine Nitrite Neg (Negative) 02/12/21 Unknown Urine Bilirubin Neg (Negative) 02/12/21 Unknown Urine Urobilinogen < 2.0 mg/dL (<2.0) 02/12/21 Unknown Ur Leukocyte Esterase Neg (Negative) 02/12/21 Unknown Urine WBC (Auto) 42.0 /HPF (0.0-6.0) H 02/12/21 Unknown Urine RBC (Auto) 2.0 /HPF (0.0-6.0) 02/12/21 Unknown U Epithel Cells (Auto) 5.0 /HPF (0-13.0) 02/12/21 Unknown Hyaline Casts 5 /LPF 02/12/21 Unknown Granular Casts 5 /LPF 02/12/21 Unknown Urine Mucus 1+ /HPF 02/12/21 Unknown Microbiology: Microbiology 02/12/21 12:03 Tracheal Aspirate Sputum Culture - Preliminary 02/12/21 11:45 Peripheral/Venous Blood Culture - Preliminary Culture in Progress 02/12/21 11:40 Peripheral/Venous Blood Culture - Preliminary Culture in Progress - Imaging and Cardiology Chest x-ray: report reviewed (Chest x-ray) Imaging and Cardiology: Chest x-ray Bilateral pleural effusions Pulmonary venous congestion Assessment and Plan Assessment and plan: The high probability OF a clinically significant sudden or life-threatening deterioration of the cardiorespiratory system and endocrine system required my full and direct attention, intervention and postoperative management. The aggregate critical care time was 40 minutes. The time is in addition to time spent performing reported procedures but includes the followin: Data review and interpretation 2: Patient assessment and monitoring of vital signs 3: Documentation 4:: Medication orders and management Advance Directives: Yes (Full code) VTE prophylaxis?: Chemical Plan of care discussed with patient/family: Yes - Patient Problems (1) Acute respiratory failure with hypoxia Current Visit: Yes Status: Acute Plan to address problem: Patient on BiPAP Was intubated in the emergency room but she pulled it out Need reintubation as necessary. Patient is in severe respiratory failure with hypoxia. Working on breathing is increased and may get fatigued Document Imaging Manager consult requested IV Solu-Medrol, IV antibiotics, duo nebs [id number] and as needed. (2) Sepsis Current Visit: Yes Status: Acute Plan to address problem: Patient started on IV ceftriaxone and Zithromax If necessary ID consult. Smaller ventral demargination may be present. (3) HTN (hypertension) Current Visit: Yes Status: Chronic Qualifiers: Hypertension type: primary hypertension Qualified Code(s): I10 - Essential (primary) hypertension Plan to address problem: Continue anti-hypertensives and adjust medications (4) T2DM (type 2 diabetes mellitus) Current Visit: Yes Status: Acute Plan to address problem: Check A1c and continue coverage with high-dose sliding scale protocol Introduce Lantus insulin if necessary. Or 7030 twice daily if necessary. (5) Acute exacerbation of CHF (congestive heart failure) Current Visit: Yes Status: Acute Plan to address problem: Echocardiogram for ejection fraction cardiology consult (6) DVT prophylaxis Current Visit: Yes Status: Acute Plan to address problem: On DVT prophylaxis. Heparin and GI prophylaxis.
[2021-02-12] MEDS ORDERED: METOCLOPRAMIDE 10 MG/2 ML INJ IV PRN ×2 (20:45→20:56)
[2021-02-12] MEDS ORDERED: SODIUM CHLORIDE 0.9% 1000 ML 1,000 ML IV SCH (20:45)
[2021-02-12] MEDS ORDERED: METOPROLOL SUCCINATE 25 MG PO SCH (20:45)
[2021-02-12] MEDS ORDERED: ONDANSETRON 4 MG/2 ML INJ IV PRN (20:45)
[2021-02-12] MEDS ORDERED: oxyCODONE /ACETAMINOPHEN 5-325MG TAB PO PRN (20:45)
[2021-02-12] MEDS ORDERED: IPRATROPIUM/ALBUTEROL SULFATE 3 ML AMPUL.NEB IH PRN (20:49)
[2021-02-12] MEDS ORDERED: hydrALAZINE 20 MG/1 ML INJ IV PRN (20:49)
[2021-02-12] MEDS: amLODIPine 5 MG TAB PO SCH (21:00)
[2021-02-12] MEDS ORDERED: METOPROLOL SUCCINATE XL 25 MG TAB PO SCH (21:00)
[2021-02-12] MEDS ORDERED: ALBUTEROL 2.5 MG/3 ML NEBU IH PRN (21:08)
[2021-02-12] MEDS: methylPREDNISolone Sod Succinate 125 MG/2 ML INJ IV SCH (21:40)
[2021-02-12] MEDS: HEPARIN 5,000 UNIT/1 ML VIAL SUB-Q SCH (21:40)
[2021-02-12] MEDS: SPIRONOLACTONE 25 MG TAB PO SCH (21:40)
[2021-02-12] MEDS: SENNOSIDES/DOCUSATE SODIUM 8.6/50 MG TAB FEEDTUBE SCH (21:40)
[2021-02-12] MEDS: cefTRIAXone/NS 2 GM/100 ML 2 GM/100 ML BAG IV SCH (21:41)
[2021-02-12] MEDS: AZITHROMYCIN/NS 500 MG/250 ML 500 MG/250 ML BAG IV SCH (21:41)
[2021-02-13] MEDS: MORPHINE 2 MG/1 ML INJ IV PRN (02:02)
[2021-02-13] MEDS ORDERED: LORazepam 2 MG/ML VIAL IV ONE (02:19)
[2021-02-13] MEDS: methylPREDNISolone Sod Succinate 125 MG/2 ML INJ IV SCH (05:02)
[2021-02-13] MEDS: HYDROmorphone 1 MG/1 ML INJ IV PRN (06:18)
[2021-02-13] MEDS ORDERED: metFORMIN 500 MG TAB PO SCH (08:00)
[2021-02-13] MEDS ORDERED: IPRATROPIUM/ALBUTEROL SULFATE 3 ML AMPUL.NEB IH SCH (08:00)
--- NOTE | 2021-02-13 09:02 | XRay Report ---
CHEST 1 VIEW 02/13/2021 8:49 AM INDICATION / CLINICAL INFORMATION: resp failure. COMPARISON: Previous day. FINDINGS: SUPPORT DEVICES: Removal of endotracheal tube and NG tube. Central line unchanged. HEART / MEDIASTINUM: Stable cardiomegaly. LUNGS / PLEURA: Basilar pleural fluid with associated volume loss remains left greater than right. [place] perimposed opacity remains with minimal improvement. No pneumothorax. ADDITIONAL FINDINGS: No significant additional findings. IMPRESSION: Minimal improvement. Signer Name: Reddy Lopez MD Signed: 02/13/2021 8:58 AM Workstation Name: [id number]
--- NOTE | 2021-02-13 09:13 | Consultation ---
History of Present Illness Consult date: 02/13/21 Requesting physician: TREMAYNE PERDOMO Consult reason: cardiac arrest History of present illness: Pt is a 71-year-old female, previously unknown to our practice, who was brought in yesterday via EMS for evaluation of AMS and difficulty breathing. Pt was apparently alert and oriented upon initial assessment by EMS but was noted to be increasingly agitated and confused after arrival. SpO2 was in the 70s on BiPAP. Pt was subsequently intubated. Shortly after, she went into PEA arrest. ROSC achieved after 3 min, 1 round of CPR/epi/bicarb/calc chloride per documentation. Pt self-extubated later yesterday afternoon and was placed back on BiPAP. She has been weaned down to HFNC by time of assessment this AM. She states she has been weak and SOB for a while due to "edema in my lungs." She reports being followed by Dr. Mclean with Pulmonology at [facility]. Pt states "I had fluid removed from my right lung in July." Etiology is unclear. Pt has a hx of HF documented in chart, but she is unable to confirm. Pt denies hx of COPD. CXR at admission revealed cardiomegaly, pulmonary edema, small R pleural effusion and m oderate L pleural effusion. Echo 03/2018 - EF 45-50%, trace MR, trace TR. Past History Past Medical History: arthritis, cancer (breast), diabetes, GERD, heart failure, hypertension, hyperlipidemia Past Surgical History: appendectomy, cholecystectomy, Other (Surgical history not a viable). denies: valve replacement, CABG, PTCA Social history: smoking (former). denies: alcohol abuse Family history: hypertension Medications and Allergies Allergies Allergy/AdvReac Type Severity Reaction Status Date / Time Penicillins Allergy Unknown Verified 02/12/21 17:19 Home Medications Medication Instructions Recorded Confirmed Last Taken Type AtorvaSTATin [Lipitor] 40 mg PO QHS 02/12/21 02/12/21 Unknown History Metoprolol Succinate [Kapspargo 25 mg PO QDAY 02/12/21 02/12/21 Unknown History Sprinkle] Spironolactone [Aldactone] 25 mg PO QDAY 02/12/21 02/12/21 Unknown History amLODIPine [Norvasc] 5 mg PO DAILY 02/12/21 02/12/21 Unknown History glipiZIDE [Glucotrol] 5 mg PO BID 02/12/21 02/12/21 Unknown History metFORMIN [Glucophage] 100 mg PO QDAY 02/12/21 02/12/21 Unknown History Active Meds: Active Medications Acetaminophen (Acetaminophen 325 Mg Tab) 650 mg PO Q4H PRN PRN Reason: Pain MILD(1-3)/Fever >100.5/CHAMBERS Albuterol (Albuterol 2.5 Mg/3 Ml Nebu) 2.5 mg IH Q3HRT PRN PRN Reason: Wheezing Albuterol/Ipratropium (Ipratropium/Albuterol Sulfate 3 Ml Ampul.Neb) 1 ampul IH QIDRT AV Amlodipine Besylate (Amlodipine 5 Mg Tab) 5 mg PO DAILY [facility] Last Admin: 02/12/21 21:00 Dose: Not Given Documented by: Atorvastatin Calcium (Atorvastatin 40 Mg Tab) 40 mg PO QHS [facility] Last Admin: 02/12/21 21:40 Dose: 40 mg Documented by: Famotidine (Famotidine 20 Mg/2 Ml Inj) 20 mg IV DAILY [facility] Heparin Sodium (Porcine) (Heparin 5,000 Unit/1 Ml Vial) 5,000 unit SUB-Q Q12HR [facility] Last Admin: 02/12/21 21:40 Dose: 5,000 unit Documented by: Hydralazine HCl (Hydralazine 20 Mg/1 Ml Inj) 10 mg IV Q3H PRN PRN Reason: SBP >/=160; DBP >/=100 Hydromorphone HCl (Hydromorphone 1 Mg/1 Ml Inj) 0.5 mg IV Q3H PRN PRN Reason: Pain , Severe (7-10) Last Admin: 02/13/21 06:18 Dose: 0.5 mg Documented by: Hydrophilic Ointment (Lip Therapy Vaseline) 1 applic TP Q2HR PRN PRN Reason: Dry Lips Norepinephrine (Levophed Drip 4 Mg/Ns 250 Ml) 4 mg in 250 mls @ 7.5 mls/hr IV TITR AV; Protocol Last Titration: 02/12/21 22:51 Dose: 4 mcg/min, 15 mls/hr Documented by: Sodium Chloride (Nacl 0.9% 1000 Ml) 1,000 mls @ 42 mls/hr IV DIRECT AV Azithromycin (Zithromax/Ns) 500 mg in 250 mls @ 250 mls/hr IV Q24H [facility] Last Admin: 02/12/21 21:41 Dose: 250 mls/hr Documented by: Ceftriaxone Sodium (Rocephin/Ns 2 Gm/100 Ml) 2 gm in 100 mls @ 200 mls/hr IV Q24H [facility]; Protocol Last Admin: 02/12/21 21:41 Dose: 200 mls/hr Documented by: Methylprednisolone Sodium Succinate (Methylprednisolone Sod Succinate 125 Mg/2 Ml Inj) 125 mg IV Q8HR [facility] Last Admin: 02/13/21 05:02 Dose: 125 mg Documented by: Metoclopramide HCl (Metoclopramide 10 Mg/2 Ml Inj) 5 mg IV Q6H PRN PRN Reason: Nausea And Vomiting Metoprolol Tartrate (Metoprolol Tartrate 25 Mg Tab) 12.5 mg PO BID [facility] Morphine Sulfate (Morphine 2 Mg/1 Ml Inj) 2 mg IV Q4H PRN PRN Reason: Pain, Moderate (4-6) Last Admin: 02/13/21 02:02 Dose: 2 mg Documented by: Multi-Ingred Cream/Lotion/Oil/Oint (Mineral Oil/Petrolatum, White Ophth Oint 3.5 Gm) 1 applic OU Q4HR PRN PRN Reason: Dry Eye(s) Ondansetron HCl (Ondansetron 4 Mg/2 Ml Inj) 4 mg IV Q8H PRN PRN Reason: Nausea And Vomiting Oxycodone/Acetaminophen (Oxycodone /Acetaminophen 5-325mg Tab) 1 tab PO Q6H PRN PRN Reason: Pain, Moderate (4-6) Senna/Docusate Sodium (Sennosides/Docusate Sodium 8.6/50 Mg Tab) 1 tab FEEDTUBE BID [facility] Last Admin: 02/12/21 21:40 Dose: 1 tab Documented by: Sodium Chloride (Sodium Chloride 0.9% 10 Ml Flush Syringe) 10 ml IV BID [facility] Last Admin: 02/12/21 21:41 Dose: 10 ml Documented by: Sodium Chloride (Sodium Chloride 0.9% 10 Ml Flush Syringe) 10 ml IV PRN PRN PRN Reason: LINE FLUSH Spironolactone (Spironolactone 25 Mg Tab) 25 mg PO QDAY [facility] Last Admin: 02/12/21 21:40 Dose: 25 mg Documented by: Review of Systems Constitutional: weakness, no fever, no chills Ears, nose, mouth and throat: no nasal congestion, no sore throat Cardiovascular: orthopnea, shortness of breath, dyspnea on exertion, no chest pain, no palpitations, no edema, no syncope, no lightheadedness Respiratory: shortness of breath, dyspnea on exertion, no cough Gastrointestinal: no abdominal pain, no nausea, no vomiting Genitourinary Female: no pelvic pain, no flank pain, no dysuria Musculoskeletal: no neck stiffness, no neck pain Integumentary: no rash, no wounds Neurological: no head injury, no paralysis, no weakness, no numbness, no tin gling, no seizures, no syncope, no vertigo, no headaches Endocrine: no cold intolerance, no heat intolerance Hematologic/Lymphatic: no easy bruising, no easy bleeding Allergic/Immunologic: no anaphylaxis Physical Examination Last Vital Signs Temp 98.6 F 02/13/21 00:47 Pulse 99 H 02/13/21 09:20 Resp 20 02/13/21 09:20 BP 113/63 02/13/21 09:10 Pulse Ox 50 L 02/13/21 09:49 General appearance: no acute distress HEENT: Positive: EOMI, Normocephaly Neck: Positive: neck supple, trachea midline. Negative: JVD/HJR Cardiac: Positive: Reg Rate and Rhythm, S1/S2 Lungs: Positive: Decreased Breath Sounds (bases) Neuro: Positive: Grossly Intact Abdomen: Positive: Soft. Negative: Tender Skin: Negative: Rash Musculoskeletal: No Pain Extremities: Present: lower extr. pulses, edema (trace BLE), Other (chronic skin changes noted) Results 02/13/21 Unknown 02/13/21 Unknown Cardiac Enzymes 02/12/21 Range/Units 12:20 AST 38 (5-40) units/L Coagulation 02/12/21 Range/Units 12:20 PT 13.8 (12.2-14.9) Sec. INR 1.01 (0.87-1.13) APTT 22.9 L (24.2-36.6) Sec. Lipids 02/12/21 Range/Units 12:20 Triglycerides 94 (2-149) mg/dL Cholesterol 99 (50-199) mg/dL HDL Cholesterol 42 (40-59) mg/dL Cholesterol/HDL Ratio 2.35 % CBC 02/12/21 Range/Units 14:25 WBC 30.4 H (4.5-11.0) K/mm3 RBC 3.34 L (3.65-5.03) M/mm3 Hgb 9.2 L (10.1-14.3) gm/dl Hct 31.5 (30.3-42.9) % Plt Count 458 H (140-440) K/mm3 Comprehensive Metabolic Panel 02/12/21 Range/Units 12:20 Sodium 142 (137-145) mmol/L Potassium 4.7 (3.6-5.0) mmol/L Chloride 103.1 (98-107) mmol/L Carbon Dioxide 21 L (22-30) mmol/L BUN 20 H (7-17) mg/dL Creatinine 1.7 H (0.6-1.2) mg/dL Glucose 278 H (65-100) mg/dL Calcium 9.9 (8.4-10.2) mg/dL Direct Bilirubin 0.3 H (0-0.2) mg/dL Indirect Bilirubin 0.3 mg/dL AST 38 (5-40) units/L ALT 19 (7-56) units/L Alkaline Phosphatase 68 (35-129) units/L Total Protein 6.4 (6.3-8.2) g/dL Albumin 3.4 L (3.9-5) g/dL - Imaging and Cardiology Echo: pending, other (2018 - EF 45-50%, trace MR) EKG: report reviewed, image reviewed - EKG Interpretation EKG: no acute changes EKG interpretations - Telemetry EKG Rhythm: Sinus Rhythm - EKG Supraventricular dysrhythmia: accelerated junctional Repolarization changes or abnormalities: nonspecific abnormality, ST segment, and/or T wave Assessment and Plan Repeat ECG. Echo pending. Wean pressors as tolerated. Awaiting medical records from [facility]. Pt seen in conjunction with Dr. Lugo, who agrees with the assessment and plan of care. - Patient Problems (1) Cardiopulmonary arrest Current Visit: Yes Status: Resolved (2) Acute respiratory failure with hypoxia Current Visit: Yes Status: Acute (3) Acute heart failure Current Visit: Yes Status: Acute Qualifiers: Heart failure type: unspecified Qualified Code(s): I50.9 - Heart failure, unspecified (4) Bilateral pleural effusion Current Visit: Yes Status: Acute (5) Sepsis Current Visit: Yes Status: Acute Qualifiers: Severe sepsis shock status: with septic shock (6) Elevated troponin Current Visit: Yes Status: Acute (7) HTN (hypertension) Current Visit: No Status: Chronic Qualifiers: Hypertension type: primary hypertension Qualified Code(s): I10 - Essential (primary) hypertension (8) HLD (hyperlipidemia) Current Visit: Yes Status: Chronic Qualifiers: Hyperlipidemia type: mixed hyperlipidemia Qualified Code(s): E78.2 - Mixed hyperlipidemia (9) T2DM (type 2 diabetes mellitus) Current Visit: Yes Status: Chronic Qualifiers: 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
[2021-02-13] MEDS ORDERED: ALBUTEROL 2.5 MG/3 ML NEBU IH PRN (09:54)
[2021-02-13] MEDS ORDERED: FAMOTIDINE 20 MG/2 ML INJ IV SCH (10:00)
[2021-02-13] MEDS: SPIRONOLACTONE 25 MG TAB PO SCH (10:07)
[2021-02-13] MEDS: HEPARIN 5,000 UNIT/1 ML VIAL SUB-Q SCH ×2 (10:07→22:44)
[2021-02-13] MEDS: amLODIPine 5 MG TAB PO SCH (10:07)
[2021-02-13] MEDS: METOPROLOL TARTRATE 25 MG TAB PO SCH ×2 (10:08→22:33)
[2021-02-13] MEDS: NORepinephrine/NS 4 MG-250 ML 4 MG/250 ML BAG IV SCH (10:19)
[2021-02-13 10:46] LABS: Hematocrit 26.8 % (30.3-42.9); Hemoglobin 8.3 gm/dl (10.1-14.3); Mean Corpuscular HGB Conc 31 % (30-34); Mean Corpuscular Volume 90 fl (79-97); Platelet Count 379 K/mm3 (140-440); Red Blood Count 2.99 M/mm3 (3.65-5.03); Red Cell Distribution Width 16.4 % (13.2-15.2)
[2021-02-13] MEDS: SENNOSIDES/DOCUSATE SODIUM 8.6/50 MG TAB FEEDTUBE SCH ×2 (10:54→22:45)
[2021-02-13 10:59] LABS: Albumin 3.1 g/dL (3.9-5); Calcium 9.2 mg/dL (8.4-10.2)
[2021-02-13] MEDS ORDERED: DEXTROSE 50% IN WATER (25GM) 50 ML SYRINGE IV PRN (11:30)
[2021-02-13] MEDS: INSULIN GLARGINE 100 UNITS/ML SUB-Q SCH (12:22)
[2021-02-13] MEDS: INSULIN LISPRO 100 UNIT/ML SUB-Q SCH ×3 (12:23→22:46)
[2021-02-13] MEDS ORDERED: SODIUM POLYSTYRENE 15 GM/60 ML ORAL LIQD PO ONE (13:00)
--- NOTE | 2021-02-13 13:11 | Consultation ---
History of Present Illness Consult date: 02/13/21 Reason for consult: hypoxemia, other (cardiac arrest) History of present illness: 71 y/o female admitted with acute respiratory failure, self extubated and is now being monitored in ICU for further care. Details of how she was admitted and how she came to intubation provided by ED note. patient stable currently on HFNC. Awake, mild distress. clinical exam appears to be consistent with volume overload. There is also concern for COPD but patient gives no history of this. Past History Past Medical History: arthritis, cancer (breast), diabetes, GERD, heart failure, hypertension, hyperlipidemia Past Surgical History: appendectomy, cholecystectomy, Other (Surgical history no t a viable). denies: valve replacement, CABG, PTCA Social history: smoking (former). denies: alcohol abuse Family history: hypertension Medications and Allergies Allergies Allergy/AdvReac Type Severity Reaction Status Date / Time Penicillins Allergy Unknown Verified 02/12/21 17:19 contrast Allergy Rash Uncoded 02/14/21 18:30 Home Medications Medication Instructions Recorded Confirmed Last Taken Type AtorvaSTATin [Lipitor] 40 mg PO QHS 02/12/21 02/12/21 Unknown History Metoprolol Succinate [Kapspargo 25 mg PO QDAY 02/12/21 02/12/21 Unknown History Sprinkle] Spironolactone [Aldactone] 25 mg PO QDAY 02/12/21 02/12/21 Unknown History amLODIPine [Norvasc] 5 mg PO DAILY 02/12/21 02/12/21 Unknown History glipiZIDE [Glucotrol] 5 mg PO BID 02/12/21 02/12/21 Unknown History metFORMIN [Glucophage] 500 mg PO BID 02/12/21 02/19/21 02/12/21 History Aspirin [Adult Aspirin] 1 tab PO QDAY 02/13/21 02/19/21 02/13/21 History Biotin [Biotin 5,000 rapdis] 5,000 mcg PO QDAY 02/13/21 02/19/21 02/12/21 History NovoLOG Flexpen 2 1000units SC ACHS 02/13/21 02/19/21 02/12/21 History Active Meds: Active Medications Acetaminophen (Acetaminophen 325 Mg Tab) 650 mg PO Q4H PRN PRN Reason: Pain MILD(1-3)/Fever >100.5/CHAMBERS Albuterol (Albuterol 2.5 Mg/3 Ml Nebu) 2.5 mg IH Q4HRT PRN PRN Reason: Wheezing Amlodipine Besylate (Amlodipine 5 Mg Tab) 5 mg PO DAILY [facility] Last Admin: 02/13/21 10:07 Dose: 5 mg Documented by: Arformoterol Tartrate (Arformoterol 15 Mcg/2 Ml Nebu) 15 mcg IH Q12HRT AV Atorvastatin Calcium (Atorvastatin 40 Mg Tab) 40 mg PO QHS [facility] Last Admin: 02/12/21 21:40 Dose: 40 mg Documented by: Budesonide (Budesonide 0.5 Mg/2 Ml Nebu) 0.5 mg IH Q12HRT AV Dextrose (Dextrose 50% In Water (25gm) 50 Ml Syringe) 50 ml IV Q30MIN PRN; Protocol PRN Reason: Hypoglycemia Famotidine (Famotidine 20 Mg/2 Ml Inj) 20 mg IV DAILY [facility] Stop: 02/13/21 23:59 Last Admin: 02/13/21 10:07 Dose: 20 mg Documented by: Famotidine (Famotidine 20 Mg Tab) 20 mg PO DAILY [facility] Heparin Sodium (Porcine) (Heparin 5,000 Unit/1 Ml Vial) 5,000 unit SUB-Q Q12HR [facility] Last Admin: 02/13/21 10:07 Dose: 5,000 unit Documented by: Hydralazine HCl (Hydralazine 20 Mg/1 Ml Inj) 10 mg IV Q3H PRN PRN Reason: SBP >/=160; DBP >/=100 Hydromorphone HCl (Hydromorphone 1 Mg/1 Ml Inj) 0.5 mg IV Q3H PRN PRN Reason: Pain , Severe (7-10) Last Admin: 02/13/21 06:18 Dose: 0.5 mg Documented by: Hydrophilic Ointment (Lip Therapy Vaseline) 1 applic TP Q2HR PRN PRN Reason: Dry Lips Norepinephrine (Levophed Drip 4 Mg/Ns 250 Ml) 4 mg in 250 mls @ 7.5 mls/hr IV TITR [facility]; Protocol Last Admin: 02/13/21 10:19 Dose: 4 mcg/min, 15 mls/hr Documented by: Sodium Chloride (Nacl 0.9% 1000 Ml) 1,000 mls @ 42 mls/hr IV DIRECT AV Azithromycin (Zithromax/Ns) 500 mg in 250 mls @ 250 mls/hr IV Q24H [facility] Last Admin: 02/12/21 21:41 Dose: 250 mls/hr Documented by: Ceftriaxone Sodium (Rocephin/Ns 2 Gm/100 Ml) 2 gm in 100 mls @ 200 mls/hr IV Q24H [facility]; Protocol Last Admin: 02/12/21 21:41 Dose: 200 mls/hr Documented by: Insulin Glargine (Insulin Glargine 100 Units/Ml) 5 units SUB-Q QAMDIAB [facility] Last Admin: 02/13/21 12:22 Dose: 5 units Documented by: Insulin Human Lispro (Insulin Lispro 100 Unit/Ml) 0 unit SUB-Q ACHS [facility]; Protocol Last Admin: 02/13/21 12:23 Dose: 4 unit Documented by: Metoclopramide HCl (Metoclopramide 10 Mg/2 Ml Inj) 5 mg IV Q6H PRN PRN Reason: Nausea And Vomiting Metoprolol Tartrate (Metoprolol Tartrate 25 Mg Tab) 12.5 mg PO BID [facility] Last Admin: 02/13/21 10:08 Dose: 12.5 mg Documented by: Morphine Sulfate (Morphine 2 Mg/1 Ml Inj) 2 mg IV Q4H PRN PRN Reason: Pain, Moderate (4-6) Last Admin: 02/13/21 02:02 Dose: 2 mg Documented by: Multi-Ingred Cream/Lotion/Oil/Oint (Mineral Oil/Petrolatum, White Ophth Oint 3.5 Gm) 1 applic OU Q4HR PRN PRN Reason: Dry Eye(s) Ondansetron HCl (Ondansetron 4 Mg/2 Ml Inj) 4 mg IV Q8H PRN PRN Reason: Nausea And Vomiting Oxycodone/Acetaminophen (Oxycodone /Acetaminophen 5-325mg Tab) 1 tab PO Q6H PRN PRN Reason: Pain, Moderate (4-6) Senna/Docusate Sodium (Sennosides/Docusate Sodium 8.6/50 Mg Tab) 1 tab FEEDTUBE BID [facility] Last Admin: 02/13/21 10:54 Dose: Not Given Documented by: Sodium Chloride (Sodium Chloride 0.9% 10 Ml Flush Syringe) 10 ml IV BID [facility] Last Admin: 02/13/21 10:11 Dose: 10 ml Documented by: Sodium Chloride (Sodium Chloride 0.9% 10 Ml Flush Syringe) 10 ml IV PRN PRN PRN Reason: LINE FLUSH Spironolactone (Spironolactone 25 Mg Tab) 25 mg PO QDAY AV Last Admin: 02/13/21 10:07 Dose: 25 mg Documented by: Physical Examination Vital signs: Vital Signs Pulse Ox 74 L 02/12/21 10:34 General appearance: no acute distress, alert, appears uncomfortable Eyes: non-icteric ENT: oropharynx moist Neck: supple, other (large in circumference) Effort: normal Ascultation: Bilateral: diminished breath sounds, rales Percussion: Bilateral: dull (bases) Results - Laboratory Findings CBC and BMP: 02/20/21 05:45 02/20/21 05:45 ABG ABG pH 7.349 (7.320-7.450) 02/13/21 08:53 POC ABG pCO2 42.7 mmHg (32.0-48.0) 02/13/21 08:53 POC ABG pO2 110.6 mmHg (83-108) H 02/13/21 08:53 POC ABG HCO3 23.0 02/13/21 08:53 ABG O2 Saturation 98.1 (0-100) 02/13/21 08:53 PT/INR, D-dimer PT 13.8 Sec. (12.2-14.9) 02/12/21 12:20 INR 1.01 (0.87-1.13) 02/12/21 12:20 Abnormal lab findings: Abnormal Labs 02/12/21 02/12/21 02/12/21 10:45 11:59 12:20 WBC RBC Hgb Hct MCHC RDW Plt Count Seg Neuts % (Manual) Lymphocytes % (Manual) Seg Neutrophils # Man Lymphocytes # (Manual) Monocytes # (Manual) Basophils # (Manual) APTT ABG pH 7.265 L POC ABG pCO2 49.9 H POC ABG pO2 168.3 H ABG Hemoglobin 10.1 L ABG Oxyhemoglobin 98.5 H ABG Potassium ABG Glucose 330 H Carboxyhemoglobin 0.3 L Potassium Carbon Dioxide BUN Creatinine Glucose POC Glucose 291 H Hemoglobin A1c Lactic Acid Direct Bilirubin Troponin T 0.058 H NT-Pro-B Natriuret Pep Albumin LDL Cholesterol Direct Arterial Blood Glucose 330 H Urine WBC (Auto) 02/12/21 02/12/21 02/12/21 12:20 12:20 12:20 WBC RBC Hgb Hct MCHC RDW Plt Count Seg Neuts % (Manual) Lymphocytes % (Manual) Seg Neutrophils # Man Lymphocytes # (Manual) Monocytes # (Manual) Basophils # (Manual) APTT 22.9 L ABG pH POC ABG pCO2 POC ABG pO2 ABG Hemoglobin ABG Oxyhemoglobin ABG Potassium ABG Glucose Carboxyhemoglobin Potassium Carbon Dioxide 21 L BUN 20 H Creatinine 1.7 H Glucose 278 H POC Glucose Hemoglobin A1c Lactic Acid 4.50 H* Direct Bilirubin 0.3 H Troponin T 0.056 H NT-Pro-B Natriuret Pep Albumin 3.4 L LDL Cholesterol Direct 40 L Arterial Blood Glucose Urine WBC (Auto) 02/12/21 02/12/21 02/12/21 12:20 14:25 16:46 WBC 30.4 H RBC 3.34 L Hgb 9.2 L Hct MCHC 29 L RDW 17.0 H Plt Count 458 H Seg Neuts % (Manual) 90.5 H Lymphocytes % (Manual) 0.5 L Seg Neutrophils # Man 27.5 H Lymphocytes # (Manual) 0.2 L Monocytes # (Manual) 1.8 H Basophils # (Manual) 0.2 H APTT ABG pH POC ABG pCO2 POC ABG pO2 ABG Hemoglobin ABG Oxyhemoglobin ABG Potassium ABG Glucose Carboxyhemoglobin Potassium Carbon Dioxide BUN Creatinine Glucose POC Glucose Hemoglobin A1c Lactic Acid 4.50 H* Direct Bilirubin Troponin T NT-Pro-B Natriuret Pep 6717 H Albumin LDL Cholesterol Direct Arterial Blood Glucose Urine WBC (Auto) 02/12/21 02/12/21 02/12/21 16:56 20:35 Unknown WBC RBC Hgb Hct MCHC RDW Plt Count Seg Neuts % (Manual) Lymphocytes % (Manual) Seg Neutrophils # Man Lymphocytes # (Manual) Monocytes # (Manual) Basophils # (Manual) APTT ABG pH 7.275 L POC ABG pCO2 POC ABG pO2 185.8 H ABG Hemoglobin 9.5 L ABG Oxyhemoglobin 98.6 H ABG Potassium 4.7 H ABG Glucose 330 H Carboxyhemoglobin 0.3 L Potassium Carbon Dioxide BUN Creatinine Glucose POC Glucose 307 H Hemoglobin A1c Lactic Acid Direct Bilirubin Troponin T NT-Pro-B Natriuret Pep Albumin LDL Cholesterol Direct Arterial Blood Glucose 330 H Urine WBC (Auto) 42.0 H 02/13/21 02/13/21 02/13/21 00:50 08:09 08:53 WBC RBC Hgb Hct MCHC RDW Plt Count Seg Neuts % (Manual) Lymphocytes % (Manual) Seg Neutrophils # Man Lymphocytes # (Manual) Monocytes # (Manual) Basophils # (Manual) APTT ABG pH POC ABG pCO2 POC ABG pO2 110.6 H ABG Hemoglobin 9.1 L ABG Oxyhemoglobin ABG Potassium 5.0 H ABG Glucose 338 H Carboxyhemoglobin 0.1 L Potassium Carbon Dioxide BUN Creatinine Glucose POC Glucose 278 H 289 H Hemoglobin A1c Lactic Acid Direct Bilirubin Troponin T NT-Pro-B Natriuret Pep Albumin LDL Cholesterol Direct Arterial Blood Glucose 338 H Urine WBC (Auto) 02/13/21 02/13/21 02/13/21 12:19 Unknown Unknown WBC 24.8 H RBC 2.99 L Hgb 8.3 L Hct 26.8 L MCHC RDW 16.4 H Plt Count Seg Neuts % (Manual) Lymphocytes % (Manual) Seg Neutrophils # Man Lymphocytes # (Manual) Monocytes # (Manual) Basophils # (Manual) APTT ABG pH POC ABG pCO2 POC ABG pO2 ABG Hemoglobin ABG Oxyhemoglobin ABG Potassium ABG Glucose Carboxyhemoglobin Potassium 5.2 H Carbon Dioxide BUN 29 H Creatinine 2.2 H Glucose 331 H POC Glucose 295 H Hemoglobin A1c Lactic Acid Direct Bilirubin Troponin T NT-Pro-B Natriuret Pep Albumin 3.1 L LDL Cholesterol Direct Arterial Blood Glucose Urine WBC (Auto) 02/13/21 Unknown WBC RBC Hgb Hct MCHC RDW Plt Count Seg Neuts % (Manual) Lymphocytes % (Manual) Seg Neutrophils # Man Lymphocytes # (Manual) Monocytes # (Manual) Basophils # (Manual) APTT ABG pH POC ABG pCO2 POC ABG pO2 ABG Hemoglobin ABG Oxyhemoglobin ABG Potassium ABG Glucose Carboxyhemoglobin Potassium Carbon Dioxide BUN Creatinine Glucose POC Glucose Hemoglobin A1c 7.0 H Lactic Acid Direct Bilirubin Troponin T NT-Pro-B Natriuret Pep Albumin LDL Cholesterol Direct Arterial Blood Glucose Urine WBC (Auto) - Diagnostic Findings Chest x-ray: image reviewed Assessment and Plan 71 y/o female with acute respiratory failure, cardiac arrest with subsequent ROSC and then self-extubation, now weaned to HFNC with bilateral pleural effusions, cardiomegaly and elevated BNP. 1. Follow up ECHO 2. Agree with obtaining results/records from [facility] 3. Wean Vasopressors for MAPS>60 and normal mentation. 4. Would hold all antihypertensive and rate control meds until off vasopressor therapy. 5. If able to be weaned off pressors, can likely go to step down unit. WIll continue to monitor and follow
[2021-02-13 13:24] LABS: Band Neutrophils # (Manual) 0.5 K/mm3; Total Cells Counted 100
[2021-02-13 13:25] LABS: Ovalocytes Few; Platelet Estimate Consistent w Auto
--- NOTE | 2021-02-13 14:51 | Progress Note ---
<LEANNETREMAYNEEdenilson - Last Filed: 02/13/21 16:09> Assessment and Plan Assessment and plan: This is a 62-year-old female with COPD, CHF, HTN, GERD, breast cancer, arthritis HLD, type 2 diabetes mellitus admitted s/p cardiac arrest with acute exacerbation of congestive heart failure, acute hypoxic respiratory failure, sepsis, acute kidney injury and electrolyte imbalances Neuro Acute metabolic encephalopathy -Fall/aspiration precautions -Reorientation as needed -02/12 CT head shows no acute intracranial abnormality CV S/p cardiac arrest -Echo pending -Cardiology consulted, patient recommendations CHF -Cardiology consulted, patient recommendations -Per cardiology 03/2018 echocardiogram showed ejection fraction of 45 to 50%, trace MR, trace TR -02/13 echocardiogram pending S/p hypotension -Patient was started on Levophed in the emergency department which has since been titrated off -Blood pressure monitoring per protocol Hypertension -Patient has a history of hypertension -Resume home antihypertenisive medication and titrate as needed Elevated troponin -Cardiology consulted -s/p cardiac arrest -Trend trop Hyperlipidemia -Resume home statin Respiratory Acute respiratory failure -S/p mechanical ventilation s/p self extuabtion, weaned from BiPAP -Presently on high flow nasal cannula -Supplemental oxygen as needed -Pulmonary hygiene -SPO2 monitor per protocol Bilateral pleural effusions -evidenced on cxr -s/p lasix in ED -lasix,sprinolactone FEN/GI Hyperkalemia -K 5.2 -Kayexalate -Trend potassium Acute kidney injury -Presented with a BUN/creatinine of 1.7/20, 02/13 BUN/creatinine 22/29 -Strict urine output -Avoid nephrotoxic medications -Renally dose medications -Daily weights -Nephrology consult if continues to increase Elevated troponin -02/12 troponin 0 0.058, 0.056, 0.069 -Patient received ACLS after PEA arrest -Cardiology consulted, appreciate recommendations Acute exacerbation of CHF -Unknown EF -Presented with a BMP of [id number] -Cardiology consulted, appreciate recommendations -Echocardiogram pending Lactic acidosis, resolved -Presented with a lactic acid of 4.5, 02/13 lactic acid 0.8 NAD -strict I&O -asencio ID Sepsis -abx therapy -Presented with hypoxia, tachycardia, hypotension, -BC x2 pending -Tracheal aspirate pending Leukocytosis -ABX therapy -Trend CBC h/o Breast CA Endo DM -SSI, long acting insulin -Hbg A1C [facility] -Hypogly[facility] -CC diet DVT/GI prophylaxis: PPI, SCDs to bilateral ultrasound in bed, heparin subcu Disposition: May transfer to IMCU after Levophed titrated off Lines: History Interval history: This is a 62-year-old female with COPD, CHF, HTN, GERD, breast cancer, arthritis HLD, type 2 diabetes mellitus who presented to the emergency department on 02/12 with complaints of severe shortness of breath and upon presentation patient assistance duration was 70% despite being on BiPAP and was electively intubated. After intubation patient had cardiac arrest with PEA and ACLS was initiated for approximately 5 minutes with achievement of ROSC. Patient later self extubated and was placed back on BiPAP. Work-up in the emergency department revealed leukocytosis, lactic acidosis, and CXR showed bilateral pleural effusions with pulmonary edema, elevated proBNP, elevated troponins. Patient was admitted to the hospital service s/p cardiac arrest, acute hypoxic respiratory failure, acute exacerbation of CHF and sepsis with consults to cardiology and CCM. 02/13: Patient weaned to high flow nasal cannula, echocardiogram pending, Levophed titrated off, COVID-19 PCR negative Hospitalist Physical - Constitutional Vitals: Temp Pulse Resp BP Pulse Ox 98.6 F 92 H 17 126/39 93 02/13/21 00:47 02/13/21 14:15 02/13/21 14:15 02/13/21 14:15 02/13/21 14:15 General appearance: Present: no acute distress, mild distress - EENT Eyes: Present: PERRL, EOM intact ENT: hearing intact, clear oral mucosa, dentition normal - Neck Neck: Present: normal ROM - Respiratory Respiratory effort: normal Respiratory: bilateral: diminished - Cardiovascular Rhythm: regular Heart Sounds: Present: S1 & S2. Absent: systolic murmur, diastolic murmur - Extremities Extremities: no ischemia, pulses intact, pulses symmetrical, No edema, normal temperature, normal color, Full ROM Peripheral Pulses: within normal limits - Abdominal General gastrointestinal: soft, non-tender, non-distended, normal bowel sounds - Integumentary Integumentary: Present: warm, dry - Psychiatric Psychiatric: cooperative - Neurologic Neurologic: CNII-XII intact, no focal deficits, moves all extremities - Allied Health Allied health notes reviewed: nursing, social work HEART Score - HEART Score EKG: Non-specific Age: > 65 Risk factors: 1-2 risk factors Troponin: Troponin T 0.069 ng/mL (0.00-0.029) H D 02/13/21 10:32 Troponin: < normal limit - Critical Actions Critical Actions: 4-6 pts:12-16.6% risk of adverse cardiac event. Should be admitted Results - Labs CBC & Chem 7: 02/13/21 Unknown 02/13/21 Unknown Labs: Laboratory Last Values WBC 24.8 K/mm3 (4.5-11.0) H 02/13/21 Unknown RBC 2.99 M/mm3 (3.65-5.03) L 02/13/21 Unknown Hgb 8.3 gm/dl (10.1-14.3) L 02/13/21 Unknown Hct 26.8 % (30.3-42.9) L 02/13/21 Unknown MCV 90 fl (79-97) 02/13/21 Unknown MCH 28 pg (28-32) 02/13/21 Unknown MCHC 31 % (30-34) 02/13/21 Unknown RDW 16.4 % (13.2-15.2) H 02/13/21 Unknown Plt Count 379 K/mm3 (140-440) 02/13/21 Unknown Add Manual Diff Complete 02/13/21 Unknown Total Counted 100 02/13/21 Unknown Seg Neutrophils % Clinical Operations Leader 02/13/21 Unknown Seg Neuts % (Manual) 98.0 % (40.0-70.0) H 02/13/21 Unknown Band Neutrophils % 2.0 % 02/13/21 Unknown Lymphocytes % (Manual) 0.5 % (13.4-35.0) L 02/12/21 14:25 Monocytes % (Manual) 6.0 % (0.0-7.3) 02/12/21 14:25 Basophils % (Manual) 0.5 % (0.0-1.8) 02/12/21 14:25 Metamyelocytes % 1.0 % 02/12/21 14:25 Myelocytes % 0.5 % 02/12/21 14:25 Nucleated RBC % Not Reportable 02/13/21 Unknown Seg Neutrophils # Man 24.3 K/mm3 (1.8-7.7) H 02/13/21 Unknown Band Neutrophils # 0.5 K/mm3 02/13/21 Unknown Lymphocytes # (Manual) 0.0 K/mm3 (1.2-5.4) L 02/13/21 Unknown Abs React Lymphs (Man) 0.0 K/mm3 02/13/21 Unknown Monocytes # (Manual) 0.0 K/mm3 (0.0-0.8) 02/13/21 Unknown Eosinophils # (Manual) 0.0 K/mm3 (0.0-0.4) 02/13/21 Unknown Basophils # (Manual) 0.0 K/mm3 (0.0-0.1) 02/13/21 Unknown Metamyelocytes # 0.0 K/mm3 02/13/21 Unknown Myelocytes # 0.0 K/mm3 02/13/21 Unknown Promyelocytes # 0.0 K/mm3 02/13/21 Unknown Blast Cells # 0.0 K/mm3 02/13/21 Unknown WBC Morphology Not Reportable 02/13/21 Unknown Hypersegmented Neuts Not Reportable 02/13/21 Unknown Hyposegmented Neuts Not Reportable 02/13/21 Unknown Hypogranular Neuts Not Reportable 02/13/21 Unknown Smudge Cells Not Reportable 02/13/21 Unknown Toxic Granulation Not Reportable 02/13/21 Unknown Toxic Vacuolation Not Reportable 02/13/21 Unknown Dohle Bodies Not Reportable 02/13/21 Unknown Pelger-Huet Anomaly Not Reportable 02/13/21 Unknown Dawn Rods Not Reportable 02/13/21 Unknown Platelet Estimate Consistent w auto 02/13/21 Unknown Clumped Platelets Not Reportable 02/13/21 Unknown Plt Clumps, EDTA Not Reportable 02/13/21 Unknown Large Platelets Not Reportable 02/13/21 Unknown Giant Platelets Not Reportable 02/13/21 Unknown Platelet Satelliting Not Reportable 02/13/21 Unknown Plt Morphology Comment Not Reportable 02/13/21 Unknown RBC Morphology Not Reportable 02/13/21 Unknown Dimorphic RBCs Not Reportable 02/13/21 Unknown Polychromasia Not Reportable 02/13/21 Unknown Hypochromasia Not Reportable 02/13/21 Unknown Poikilocytosis Not Reportable 02/13/21 Unknown Anisocytosis Not Reportable 02/13/21 Unknown Microcytosis Not Reportable 02/13/21 Unknown Macrocytosis Not Reportable 02/13/21 Unknown Spherocytes Not Reportable 02/13/21 Unknown Pappenheimer Bodies Not Reportable 02/13/21 Unknown Sickle Cells Not Reportable 02/13/21 Unknown Target Cells Not Reportable 02/13/21 Unknown Tear Drop Cells Not Reportable 02/13/21 Unknown Ovalocytes Few 02/13/21 Unknown Helmet Cells Not Reportable 02/13/21 Unknown [place] Bodies Not Reportable 02/13/21 Unknown [place] Rings Not Reportable 02/13/21 Unknown [place] Cells Not Reportable 02/13/21 Unknown Bite Cells Not Reportable 02/13/21 Unknown Crenated Cell Not Reportable 02/13/21 Unknown Elliptocytes Not Reportable 02/13/21 Unknown Acanthocytes (Spur) Not Reportable 02/13/21 Unknown Rouleaux Not Reportable 02/13/21 Unknown Hemoglobin C Crystals Not Reportable 02/13/21 Unknown Schistocytes Not Reportable 02/13/21 Unknown Malaria parasites Not Reportable 02/13/21 Unknown [place] Bodies Not Reportable 02/13/21 Unknown Hem Pathologist Commnt No 02/13/21 Unknown PT 13.8 Sec. (12.2-14.9) 02/12/21 12:20 INR 1.01 (0.87-1.13) 02/12/21 12:20 APTT 22.9 Sec. (24.2-36.6) L 02/12/21 12:20 ABG pH 7.349 (7.320-7.450) 02/13/21 08:53 POC ABG pCO2 42.7 mmHg (32.0-48.0) 02/13/21 08:53 POC ABG pO2 110.6 mmHg (83-108) H 02/13/21 08:53 POC ABG HCO3 23.0 02/13/21 08:53 ABG O2 Saturation 98.1 (0-100) 02/13/21 08:53 POC ABG Base Excess -2.5 02/13/21 08:53 ABG Hemoglobin 9.1 (12.0-17.5) L 02/13/21 08:53 ABG Oxyhemoglobin 97.7 (94-98) 02/13/21 08:53 ABG Methemoglobin 0.3 (0.0-1.5) 02/13/21 08:53 ABG Sodium 137.0 mmol/L (136.0-145.0) 02/13/21 08:53 ABG Potassium 5.0 mmol/L (3.40-4.50) H 02/13/21 08:53 ABG Chloride 106.0 mmol/L (98-107) 02/13/21 08:53 ABG Glucose 338 mg/dL (65-95) H 02/13/21 08:53 ABG Lactate 2.74 (0.18-30.0) 02/12/21 16:56 Carboxyhemoglobin 0.1 (0.5-1.5) L 02/13/21 08:53 FiO2 % 65.0 02/13/21 08:53 Sodium 139 mmol/L (137-145) 02/13/21 Unknown Potassium 5.2 mmol/L (3.6-5.0) H 02/13/21 Unknown Chloride 101.1 mmol/L (98-107) 02/13/21 Unknown Carbon Dioxide 24 mmol/L (22-30) 02/13/21 Unknown Anion Gap 19 mmol/L 02/13/21 Unknown BUN 29 mg/dL (7-17) H 02/13/21 Unknown Creatinine 2.2 mg/dL (0.6-1.2) H 02/13/21 Unknown Estimated GFR 22 ml/min 02/13/21 Unknown BUN/Creatinine Ratio 13 % 02/13/21 Unknown Glucose 331 mg/dL (65-100) H 02/13/21 Unknown POC Glucose 295 mg/dL (70-105) H 02/13/21 12:19 Hemoglobin A1c 7.0 % (4-6) H 02/13/21 Unknown Lactic Acid 0.80 mmol/L (0.7-2.0) 02/13/21 Unknown Calcium 9.2 mg/dL (8.4-10.2) 02/13/21 Unknown Total Bilirubin 0.30 mg/dL (0.1-1.2) 02/13/21 Unknown Direct Bilirubin 0.3 mg/dL (0-0.2) H 02/12/21 12:20 Indirect Bilirubin 0.3 mg/dL 02/12/21 12:20 AST 31 units/L (5-40) 02/13/21 Unknown ALT 18 units/L (7-56) 02/13/21 Unknown Alkaline Phosphatase 55 units/L (35-129) 02/13/21 Unknown Ammonia 39.0 umol/L (25-60) 02/12/21 12:20 Troponin T 0.069 ng/mL (0.00-0.029) H D 02/13/21 10:32 NT-Pro-B Natriuret Pep 6717 pg/mL (0-900) H 02/12/21 12:20 Total Protein 6.4 g/dL (6.3-8.2) 02/13/21 Unknown Albumin 3.1 g/dL (3.9-5) L 02/13/21 Unknown Albumin/Globulin Ratio 0.9 % 02/13/21 Unknown Triglycerides 94 mg/dL (2-149) 02/12/21 12:20 Cholesterol 99 mg/dL (50-199) 02/12/21 12:20 LDL Cholesterol Direct 40 mg/dL (50-130) L 02/12/21 12:20 HDL Cholesterol 42 mg/dL (40-59) 02/12/21 12:20 Cholesterol/HDL Ratio 2.35 % 02/12/21 12:20 Arterial Blood Glucose 338 mg/dL (65-95) H 02/13/21 08:53 Arterial Blood Ionized Calcium 4.7 mg/dL (4.6-5.3) 02/13/21 08:53 Urine Color Vikki (Yellow) 02/12/21 Unknown Urine Turbidity Cloudy (Clear) 02/12/21 Unknown Urine pH 5.0 (5.0-7.0) 02/12/21 Unknown Ur Specific [place] 1.017 (1.003-1.030) 02/12/21 Unknown Urine Protein >500 mg/dL (Negative) 02/12/21 Unknown Urine Glucose (UA) >=500 mg/dL (Negative) 02/12/21 Unknown Urine Ketones Neg mg/dL (Negative) 02/12/21 Unknown Urine Blood Neg (Negative) 02/12/21 Unknown Urine Nitrite Neg (Negative) 02/12/21 Unknown Urine Bilirubin Neg (Negative) 02/12/21 Unknown Urine Urobilinogen < 2.0 mg/dL (<2.0) 02/12/21 Unknown Ur Leukocyte Esterase Neg (Negative) 02/12/21 Unknown Urine WBC (Auto) 42.0 /HPF (0.0-6.0) H 02/12/21 Unknown Urine RBC (Auto) 2.0 /HPF (0.0-6.0) 02/12/21 Unknown U Epithel Cells (Auto) 5.0 /HPF (0-13.0) 02/12/21 Unknown Hyaline Casts 5 /LPF 02/12/21 Unknown Granular Casts 5 /LPF 02/12/21 Unknown Urine Mucus 1+ /HPF 02/12/21 Unknown Coronavirus (PCR) Negative (Negative) 02/12/21 09:17 Microbiology: Microbiology 02/12/21 11:40 Peripheral/Venous Blood Culture - Preliminary NO GROWTH AFTER 24 HOURS 02/12/21 11:45 Peripheral/Venous Blood Culture - Preliminary NO GROWTH AFTER 24 HOURS 02/12/21 12:03 Tracheal Aspirate Sputum Culture - Preliminary Asencio/IV: Voiding Method Indwelling Catheter Active Medications - Current Medications Current Medications: Generic Name Dose Route Start Last Admin Trade Name Freq PRN Reason Stop Dose Admin Acetaminophen 650 mg 02/12/21 20:45 Acetaminophen 325 Mg Tab PO Q4H PRN Pain MILD(1-3)/Fever >100.5/CHAMBERS Albuterol 2.5 mg 02/13/21 09:54 Albuterol 2.5 Mg/3 Ml Nebu IH Q4HRT PRN Wheezing Amlodipine Besylate 5 mg 02/12/21 21:00 02/13/21 10:07 Amlodipine 5 Mg Tab PO 5 mg DAILY AV Administration Arformoterol Tartrate 15 mcg 02/13/21 20:00 Arformoterol 15 Mcg/2 Ml Nebu IH Q12HRT AV Atorvastatin Calcium 40 mg 02/12/21 22:00 02/12/21 21:40 Atorvastatin 40 Mg Tab PO 40 mg QHS AV Administration Budesonide 0.5 mg 02/13/21 20:00 Budesonide 0.5 Mg/2 Ml Nebu IH Q12HRT AV Dextrose 50 ml 02/13/21 11:30 Dextrose 50% In Water (25gm) 50 Ml Syringe IV Q30MIN PRN Hypoglycemia Protocol Famotidine 20 mg 02/13/21 10:00 02/13/21 10:07 Famotidine 20 Mg/2 Ml Inj IV 02/13/21 23:59 20 mg DAILY AV Administration Famotidine 20 mg 02/14/21 10:00 Famotidine 20 Mg Tab PO DAILY AV Heparin Sodium (Porcine) 5,000 unit 02/12/21 22:00 02/13/21 10:07 Heparin 5,000 Unit/1 Ml Vial SUB-Q 5,000 unit Q12HR AV Administration Hydralazine HCl 10 mg 02/12/21 20:49 Hydralazine 20 Mg/1 Ml Inj IV Q3H PRN SBP >/=160; DBP >/=100 Hydromorphone HCl 0.5 mg 02/12/21 20:45 02/13/21 06:18 Hydromorphone 1 Mg/1 Ml Inj IV 0.5 mg Q3H PRN Administration Pain , Severe (7-10) Hydrophilic Ointment 1 applic 02/12/21 10:49 Lip Therapy Vaseline TP Q2HR PRN Dry Lips Norepinephrine 4 mg in 250 mls @ 7.5 mls/hr 02/12/21 13:00 02/13/21 13:00 Levophed Drip 4 Mg/Ns 250 Ml IV 0 mcg/min TITR AV 0 mls/hr Titration Protocol 2 MCG/MIN Sodium Chloride 1,000 mls @ 42 mls/hr 02/12/21 20:45 Nacl 0.9% 1000 Ml IV DIRECT AV Azithromycin 500 mg in 250 mls @ 250 mls/hr 02/12/21 21:00 02/12/21 21:41 Zithromax/Ns IV 250 mls/hr Q24H AV Administration Ceftriaxone Sodium 2 gm in 100 mls @ 200 mls/hr 02/12/21 21:00 02/12/21 21:41 Rocephin/Ns 2 Gm/100 Ml IV 200 mls/hr Q24H AV Administration Protocol Insulin Glargine 5 units 02/13/21 12:00 02/13/21 12:22 Insulin Glargine 100 Units/Ml SUB-Q 5 units QAMDIAB AV Administration Insulin Human Lispro 0 unit 02/13/21 11:30 02/13/21 12:23 Insulin Lispro 100 Unit/Ml SUB-Q 4 unit ACHS AV Administration Protocol Metoclopramide HCl 5 mg 02/12/21 20:56 Metoclopramide 10 Mg/2 Ml Inj IV Q6H PRN Nausea And Vomiting Metoprolol Tartrate 12.5 mg 02/13/21 10:00 02/13/21 10:08 Metoprolol Tartrate 25 Mg Tab PO 12.5 mg BID AV Administration Morphine Sulfate 2 mg 02/12/21 20:45 02/13/21 02:02 Morphine 2 Mg/1 Ml Inj IV 2 mg Q4H PRN Administration Pain, Moderate (4-6) Multi-Ingred Cream/Lotion/Oil/Oint 1 applic 02/12/21 10:49 Mineral Oil/Petrolatum, White Ophth Oint 3.5 Gm OU Q4HR PRN Dry Eye(s) Ondansetron HCl 4 mg 02/12/21 20:45 Ondansetron 4 Mg/2 Ml Inj IV Q8H PRN Nausea And Vomiting Oxycodone/Acetaminophen 1 tab 02/12/21 20:45 Oxycodone /Acetaminophen 5-325mg Tab PO Q6H PRN Pain, Moderate (4-6) Senna/Docusate Sodium 1 tab 02/12/21 22:00 02/13/21 10:54 Sennosides/Docusate Sodium 8.6/50 Mg Tab FEEDTUBE Not Given BID AV Sodium Chloride 10 ml 02/12/21 22:00 02/13/21 10:11 Sodium Chloride 0.9% 10 Ml Flush Syringe IV 10 ml BID AV Administration Sodium Chloride 10 ml 02/12/21 20:45 Sodium Chloride 0.9% 10 Ml Flush Syringe IV PRN PRN LINE FLUSH Spironolactone 25 mg 02/12/21 21:00 02/13/21 10:07 Spironolactone 25 Mg Tab PO 25 mg QDAY AV Administration Nutrition/Malnutrition Assess - Dietary Evaluation Nutrition/Malnutrition Findings: Nutrition Notes Start: 02/13/21 11:14 Freq: Status: Active Protocol: Document 02/13/21 11:14 MARIANA (Rec: 02/13/21 11:25 MARIANA [id number]) Nutrition Notes Need for Assessment generated from: MD Order Initial or Follow up Assessment Current Diagnosis COPD,Diabetes,Sepsis, Hypertension,Heart Failure, Respiratory Failure, Hyperlipidemia Other Pertinent Diagnosis COVID PUI Current Diet Consistent CHO Labs/Tests K 5.2 BUN 29 Cr 2.2 BG 331 Pertinent Medications Levophed Solu Medrol Height 5 ft 2 in Weight 98.2 kg [place] Body Weight (kg) 50.00 BMI 39.6 Weight Status Morbidly Obese Subjective/Other Information MD consult to eval nutritional intakes. Pt now off the vent and on bipap. Pt RN, pt to be taken off bipap today. Burn Absent Trauma Absent Current % PO Negligible #1 Nutrition Diagnosis Predicted suboptimal energy intake Etiology ARF As Evidenced by Signs and Symptoms pt on bipap Is patient on ventilator? No Is Patient Ambulatory and/or Out of Bed No REE-([place]-confined to bed) 1757.748 Kcal/Kg value to use for calculation 15 Approximate Energy Requirements Using 1473 kcal/Kg Calculation Used for Recommendations Kcal/kg Additional Notes Protein: (1-1.2g/kg AdjBW: 74. 1kg) 74-89g Fluid: 1 ml/kcal or per MD Nutrition Intervention Change Diet Order: Continue Goal #1 Meet at least 75% of protein and energy needs via PO Follow-Up By: 02/16/21 Additional Comments FU for intakes and need for ONS <RAFAT MARROQUIN - Last Filed: 02/14/21 13:09> Assessment and Plan Assessment and plan: Agree with assessment and plan as outlined by nurse practitioner as above. I personally examined the patient, chart review, made recommendations to labs and patient care. Patient was on BiPAP, weaned to high flow nasal cannula oxygen. Patient is very lethargic, guarded care for the patient since decompensation is highly likely in this patient. Hospitalist Physical - Constitutional Vitals: Temp Pulse Resp BP Pulse Ox 98 F 86 25 H 126/48 90 02/14/21 12:00 02/14/21 12:00 02/14/21 12:00 02/14/21 10:01 02/14/21 12:00 HEART Score - HEART Score Troponin: Troponin T 0.051 ng/mL (0.00-0.029) H D 02/13/21 18:00 Results - Labs CBC & Chem 7: 02/14/21 07:49 02/14/21 07:49 Labs: Laboratory Last Values WBC 25.1 K/mm3 (4.5-11.0) H 02/14/21 07:49 RBC 2.99 M/mm3 (3.65-5.03) L 02/14/21 07:49 Hgb 8.5 gm/dl (10.1-14.3) L 02/14/21 07:49 Hct 26.6 % (30.3-42.9) L 02/14/21 07:49 MCV 89 fl (79-97) 02/14/21 07:49 MCH 28 pg (28-32) 02/14/21 07:49 MCHC 32 % (30-34) 02/14/21 07:49 RDW 16.3 % (13.2-15.2) H 02/14/21 07:49 Plt Count 370 K/mm3 (140-440) 02/14/21 07:49 Add Manual Diff Complete 02/13/21 Unknown Total Counted 100 02/13/21 Unknown Seg Neutrophils % Clinical Operations Leader 02/13/21 Unknown Seg Neuts % (Manual) 98.0 % (40.0-70.0) H 02/13/21 Unknown Band Neutrophils % 2.0 % 02/13/21 Unknown Lymphocytes % (Manual) 0.5 % (13.4-35.0) L 02/12/21 14:25 Monocytes % (Manual) 6.0 % (0.0-7.3) 02/12/21 14:25 Basophils % (Manual) 0.5 % (0.0-1.8) 02/12/21 14:25 Metamyelocytes % 1.0 % 02/12/21 14:25 Myelocytes % 0.5 % 02/12/21 14:25 Nucleated RBC % Not Reportable 02/13/21 Unknown Seg Neutrophils # Man 24.3 K/mm3 (1.8-7.7) H 02/13/21 Unknown Band Neutrophils # 0.5 K/mm3 02/13/21 Unknown Lymphocytes # (Manual) 0.0 K/mm3 (1.2-5.4) L 02/13/21 Unknown Abs React Lymphs (Man) 0.0 K/mm3 02/13/21 Unknown Monocytes # (Manual) 0.0 K/mm3 (0.0-0.8) 02/13/21 Unknown Eosinophils # (Manual) 0.0 K/mm3 (0.0-0.4) 02/13/21 Unknown Basophils # (Manual) 0.0 K/mm3 (0.0-0.1) 02/13/21 Unknown Metamyelocytes # 0.0 K/mm3 02/13/21 Unknown Myelocytes # 0.0 K/mm3 02/13/21 Unknown Promyelocytes # 0.0 K/mm3 02/13/21 Unknown Blast Cells # 0.0 K/mm3 02/13/21 Unknown WBC Morphology Not Reportable 02/13/21 Unknown Hypersegmented Neuts Not Reportable 02/13/21 Unknown Hyposegmented Neuts Not Reportable 02/13/21 Unknown Hypogranular Neuts Not Reportable 02/13/21 Unknown Smudge Cells Not Reportable 02/13/21 Unknown Toxic Granulation Not Reportable 02/13/21 Unknown Toxic Vacuolation Not Reportable 02/13/21 Unknown Dohle Bodies Not Reportable 02/13/21 Unknown Pelger-Huet Anomaly Not Reportable 02/13/21 Unknown Dawn Rods Not Reportable 02/13/21 Unknown Platelet Estimate Consistent w auto 02/13/21 Unknown Clumped Platelets Not Reportable 02/13/21 Unknown Plt Clumps, EDTA Not Reportable 02/13/21 Unknown Large Platelets Not Reportable 02/13/21 Unknown Giant Platelets Not Reportable 02/13/21 Unknown Platelet Satelliting Not Reportable 02/13/21 Unknown Plt Morphology Comment Not Reportable 02/13/21 Unknown RBC Morphology Not Reportable 02/13/21 Unknown Dimorphic RBCs Not Reportable 02/13/21 Unknown Polychromasia Not Reportable 02/13/21 Unknown Hypochromasia Not Reportable 02/13/21 Unknown Poikilocytosis Not Reportable 02/13/21 Unknown Anisocytosis Not Reportable 02/13/21 Unknown Microcytosis Not Reportable 02/13/21 Unknown Macrocytosis Not Reportable 02/13/21 Unknown Spherocytes Not Reportable 02/13/21 Unknown Pappenheimer Bodies Not Reportable 02/13/21 Unknown Sickle Cells Not Reportable 02/13/21 Unknown Target Cells Not Reportable 02/13/21 Unknown Tear Drop Cells Not Reportable 02/13/21 Unknown Ovalocytes Few 02/13/21 Unknown Helmet Cells Not Reportable 02/13/21 Unknown [place] Bodies Not Reportable 02/13/21 Unknown [place] Rings Not Reportable 02/13/21 Unknown [place] Cells Not Reportable 02/13/21 Unknown Bite Cells Not Reportable 02/13/21 Unknown Crenated Cell Not Reportable 02/13/21 Unknown Elliptocytes Not Reportable 02/13/21 Unknown Acanthocytes (Spur) Not Reportable 02/13/21 Unknown Rouleaux Not Reportable 02/13/21 Unknown Hemoglobin C Crystals Not Reportable 02/13/21 Unknown Schistocytes Not Reportable 02/13/21 Unknown Malaria parasites Not Reportable 02/13/21 Unknown [place] Bodies Not Reportable 02/13/21 Unknown Hem Pathologist Commnt No 02/13/21 Unknown PT 13.8 Sec. (12.2-14.9) 02/12/21 12:20 INR 1.01 (0.87-1.13) 02/12/21 12:20 APTT 22.9 Sec. (24.2-36.6) L 02/12/21 12:20 ABG pH 7.349 (7.320-7.450) 02/13/21 08:53 POC ABG pCO2 42.7 mmHg (32.0-48.0) 02/13/21 08:53 POC ABG pO2 110.6 mmHg (83-108) H 02/13/21 08:53 POC ABG HCO3 23.0 02/13/21 08:53 ABG O2 Saturation 98.1 (0-100) 02/13/21 08:53 POC ABG Base Excess -2.5 02/13/21 08:53 ABG Hemoglobin 9.1 (12.0-17.5) L 02/13/21 08:53 ABG Oxyhemoglobin 97.7 (94-98) 02/13/21 08:53 ABG Methemoglobin 0.3 (0.0-1.5) 02/13/21 08:53 ABG Sodium 137.0 mmol/L (136.0-145.0) 02/13/21 08:53 ABG Potassium 5.0 mmol/L (3.40-4.50) H 02/13/21 08:53 ABG Chloride 106.0 mmol/L (98-107) 02/13/21 08:53 ABG Glucose 338 mg/dL (65-95) H 02/13/21 08:53 ABG Lactate 2.74 (0.18-30.0) 02/12/21 16:56 Carboxyhemoglobin 0.1 (0.5-1.5) L 02/13/21 08:53 FiO2 % 65.0 02/13/21 08:53 Sodium 142 mmol/L (137-145) 02/14/21 07:49 Potassium 4.6 mmol/L (3.6-5.0) 02/14/21 07:49 Chloride 103.9 mmol/L (98-107) 02/14/21 07:49 Carbon Dioxide 25 mmol/L (22-30) 02/14/21 07:49 Anion Gap 18 mmol/L 02/14/21 07:49 BUN 39 mg/dL (7-17) H 02/14/21 07:49 Creatinine 2.1 mg/dL (0.6-1.2) H 02/14/21 07:49 Estimated GFR 23 ml/min 02/14/21 07:49 BUN/Creatinine Ratio 19 % 02/14/21 07:49 Glucose 253 mg/dL (65-100) H 02/14/21 07:49 POC Glucose 229 mg/dL (70-105) H 02/14/21 11:37 Hemoglobin A1c 7.0 % (4-6) H 02/13/21 Unknown Lactic Acid 0.80 mmol/L (0.7-2.0) 02/13/21 Unknown Calcium 9.1 mg/dL (8.4-10.2) 02/14/21 07:49 Magnesium 2.20 mg/dL (1.7-2.3) 02/14/21 07:49 Total Bilirubin 0.30 mg/dL (0.1-1.2) 02/13/21 Unknown Direct Bilirubin 0.3 mg/dL (0-0.2) H 02/12/21 12:20 Indirect Bilirubin 0.3 mg/dL 02/12/21 12:20 AST 31 units/L (5-40) 02/13/21 Unknown ALT 18 units/L (7-56) 02/13/21 Unknown Alkaline Phosphatase 55 units/L (35-129) 02/13/21 Unknown Ammonia 39.0 umol/L (25-60) 02/12/21 12:20 Troponin T 0.051 ng/mL (0.00-0.029) H D 02/13/21 18:00 NT-Pro-B Natriuret Pep 6717 pg/mL (0-900) H 02/12/21 12:20 Total Protein 6.4 g/dL (6.3-8.2) 02/13/21 Unknown Albumin 3.1 g/dL (3.9-5) L 02/13/21 Unknown Albumin/Globulin Ratio 0.9 % 02/13/21 Unknown Triglycerides 94 mg/dL (2-149) 02/12/21 12:20 Cholesterol 99 mg/dL (50-199) 02/12/21 12:20 LDL Cholesterol Direct 40 mg/dL (50-130) L 02/12/21 12:20 HDL Cholesterol 42 mg/dL (40-59) 02/12/21 12:20 Cholesterol/HDL Ratio 2.35 % 02/12/21 12:20 Arterial Blood Glucose 338 mg/dL (65-95) H 02/13/21 08:53 Arterial Blood Ionized Calcium 4.7 mg/dL (4.6-5.3) 02/13/21 08:53 Urine Color Vikki (Yellow) 02/12/21 Unknown Urine Turbidity Cloudy (Clear) 02/12/21 Unknown Urine pH 5.0 (5.0-7.0) 02/12/21 Unknown Ur Specific [place] 1.017 (1.003-1.030) 02/12/21 Unknown Urine Protein >500 mg/dL (Negative) 02/12/21 Unknown Urine Glucose (UA) >=500 mg/dL (Negative) 02/12/21 Unknown Urine Ketones Neg mg/dL (Negative) 02/12/21 Unknown Urine Blood Neg (Negative) 02/12/21 Unknown Urine Nitrite Neg (Negative) 02/12/21 Unknown Urine Bilirubin Neg (Negative) 02/12/21 Unknown Urine Urobilinogen < 2.0 mg/dL (<2.0) 02/12/21 Unknown Ur Leukocyte Esterase Neg (Negative) 02/12/21 Unknown Urine WBC (Auto) 42.0 /HPF (0.0-6.0) H 02/12/21 Unknown Urine RBC (Auto) 2.0 /HPF (0.0-6.0) 02/12/21 Unknown U Epithel Cells (Auto) 5.0 /HPF (0-13.0) 02/12/21 Unknown Hyaline Casts 5 /LPF 02/12/21 Unknown Granular Casts 5 /LPF 02/12/21 Unknown Urine Mucus 1+ /HPF 02/12/21 Unknown Coronavirus (PCR) Negative (Negative) 02/12/21 09:17 Microbiology: Microbiology 02/12/21 11:40 Peripheral/Venous Blood Culture - Preliminary NO GROWTH AFTER 48 HOURS 02/12/21 11:45 Peripheral/Venous Blood Culture - Preliminary NO GROWTH AFTER 48 HOURS 02/12/21 Unknown Urine,Clean Catch Urine Culture - Final NO GROWTH AFTER 48 HOURS Asencio/IV: Voiding Method Indwelling Catheter Active Medications - Current Medications Current Medications: Generic Name Dose Route Start Last Admin Trade Name Freq PRN Reason Stop Dose Admin Acetaminophen 650 mg 02/12/21 20:45 Acetaminophen 325 Mg Tab PO Q4H PRN Pain MILD(1-3)/Fever >100.5/CHAMBERS Albuterol 2.5 mg 02/13/21 09:54 Albuterol 2.5 Mg/3 Ml Nebu IH Q4HRT PRN Wheezing Alprazolam 0.5 mg 02/14/21 10:42 02/14/21 11:26 Alprazolam 0.5 Mg Tab PO 0.5 mg TID PRN Administration Anxiety Arformoterol Tartrate 15 mcg 02/13/21 20:00 02/14/21 07:56 Arformoterol 15 Mcg/2 Ml Nebu IH 15 mcg Q12HRT AV Administration Atorvastatin Calcium 40 mg 02/12/21 22:00 02/13/21 22:32 Atorvastatin 40 Mg Tab PO 40 mg QHS AV Administration Budesonide 0.5 mg 02/13/21 20:00 02/14/21 07:56 Budesonide 0.5 Mg/2 Ml Nebu IH 0.5 mg Q12HRT AV Administration Dextrose 50 ml 02/13/21 11:30 Dextrose 50% In Water (25gm) 50 Ml Syringe IV Q30MIN PRN Hypoglycemia Protocol Famotidine 20 mg 02/14/21 10:00 02/14/21 09:08 Famotidine 20 Mg Tab PO 20 mg DAILY AV Administration Furosemide 40 mg 02/14/21 09:00 02/14/21 09:21 Furosemide 40 Mg/4 Ml Inj IV 40 mg 0600,1800 AV Administration Heparin Sodium (Porcine) 5,000 unit 02/12/21 22:00 02/14/21 09:09 Heparin 5,000 Unit/1 Ml Vial SUB-Q 5,000 unit Q12HR AV Administration Hydralazine HCl 10 mg 02/12/21 20:49 Hydralazine 20 Mg/1 Ml Inj IV Q3H PRN SBP >/=160; DBP >/=100 Hydromorphone HCl 0.5 mg 02/12/21 20:45 02/13/21 06:18 Hydromorphone 1 Mg/1 Ml Inj IV 0.5 mg Q3H PRN Administration Pain , Severe (7-10) Hydrophilic Ointment 1 applic 02/12/21 10:49 Lip Therapy Vaseline TP Q2HR PRN Dry Lips Sodium Chloride 1,000 mls @ 42 mls/hr 02/12/21 20:45 Nacl 0.9% 1000 Ml IV DIRECT AV Azithromycin 500 mg in 250 mls @ 250 mls/hr 02/12/21 21:00 02/13/21 22:20 Zithromax/Ns IV 250 mls/hr Q24H AV Administration Ceftriaxone Sodium 2 gm in 100 mls @ 200 mls/hr 02/12/21 21:00 02/13/21 22:19 Rocephin/Ns 2 Gm/100 Ml IV 200 mls/hr Q24H AV Administration Protocol Insulin Glargine 10 units 02/15/21 08:00 Insulin Glargine 100 Units/Ml SUB-Q QAMDIAB [facility] Insulin Human Lispro 0 unit 02/13/21 11:30 02/14/21 11:54 Insulin Lispro 100 Unit/Ml SUB-Q 3 unit ACHS [facility] Administration Protocol Metoclopramide HCl 5 mg 02/12/21 20:56 Metoclopramide 10 Mg/2 Ml Inj IV Q6H PRN Nausea And Vomiting Metoprolol Tartrate 50 mg 02/14/21 07:53 02/14/21 09:08 Metoprolol Tartrate 25 Mg Tab PO 50 mg BID AV Administration Morphine Sulfate 2 mg 02/12/21 20:45 02/14/21 11:26 Morphine 2 Mg/1 Ml Inj IV 2 mg Q4H PRN Administration Pain, Moderate (4-6) Multi-Ingred Cream/Lotion/Oil/Oint 1 applic 02/12/21 10:49 Mineral Oil/Petrolatum, White Ophth Oint 3.5 Gm OU Q4HR PRN Dry Eye(s) Ondansetron HCl 4 mg 02/12/21 20:45 Ondansetron 4 Mg/2 Ml Inj IV Q8H PRN Nausea And Vomiting Oxycodone/Acetaminophen 1 tab 02/12/21 20:45 Oxycodone /Acetaminophen 5-325mg Tab PO Q6H PRN Pain, Moderate (4-6) Senna/Docusate Sodium 1 tab 02/12/21 22:00 02/14/21 11:13 Sennosides/Docusate Sodium 8.6/50 Mg Tab FEEDTUBE Not Given BID AV Sodium Chloride 10 ml 02/12/21 22:00 02/14/21 11:14 Sodium Chloride 0.9% 10 Ml Flush Syringe IV 10 ml BID AV Administration Sodium Chloride 10 ml 02/12/21 20:45 Sodium Chloride 0.9% 10 Ml Flush Syringe IV PRN PRN LINE FLUSH Nutrition/Malnutrition Assess - Dietary Evaluation Nutrition/Malnutrition Findings: Nutrition Notes Start: 02/13/21 11:14 Freq: Status: Active Protocol: Document 02/14/21 12:02 CW (Rec: 02/14/21 12:07 CW [id number]) Nutrition Notes Initial or Follow up Reassessment Current Diagnosis COPD,Diabetes,Sepsis, Hypertension,Heart Failure, Respiratory Failure, Hyperlipidemia Other Pertinent Diagnosis COVID PUI Current Diet Consistent CHO Labs/Tests BUN 39 Cr 2.1 BG 253 Pertinent Medications Humalog Lasix Pulmicort lantus kionex Height 5 ft 2 in Weight 98.2 kg [place] Body Weight (kg) 50.00 BMI 39.6 Weight Status Morbidly Obese Subjective/Other Information RN screen for MST and skin risk. Pt very lethargic upon visit and could not answer nutrtion questions at the time . RN unsure of PO intake for breakfast. Perry score of 16 Burn Absent Trauma Absent Minimum of two criteria No Fluid Accumulation Mild (non-severe) #1 Nutrition Diagnosis Predicted suboptimal energy intake As Evidenced by Signs and Symptoms pt lethargic and likely did not consume breakfast Diagnosis Progress(for reassessment Continues documentation) Is patient on ventilator? No Is Patient Ambulatory and/or Out of Bed No [facility] 1757.748 Kcal/Kg value to use for calculation 15 Approximate Energy Requirements Using 1473 kcal/Kg Calculation Used for Recommendations Kcal/kg Additional Notes Protein: (1-1.2g/kg AdjBW: 74. 1kg) 74-89g Fluid: 1 ml/kcal or per MD Nutrition Intervention Change Diet Order: Continue Goal #1 Meet at least 75% of protein and energy needs via PO Follow-Up By: 02/16/21 Additional Comments F/U for intakes and need for ONS
[2021-02-13] MEDS: ARFORMOTEROL 15 MCG/2 ML NEBU IH SCH (20:01)
[2021-02-13] MEDS: BUDESONIDE 0.5 MG/2 ML NEBU IH SCH (20:01)
[2021-02-13] MEDS: cefTRIAXone/NS 2 GM/100 ML 2 GM/100 ML BAG IV SCH (22:19)
[2021-02-13] MEDS: AZITHROMYCIN/NS 500 MG/250 ML 500 MG/250 ML BAG IV SCH (22:20)
[2021-02-14] MEDS: INSULIN LISPRO 100 UNIT/ML SUB-Q SCH ×4 (07:52→21:28)
[2021-02-14] MEDS: INSULIN GLARGINE 100 UNITS/ML SUB-Q SCH (07:53)
[2021-02-14] MEDS: ARFORMOTEROL 15 MCG/2 ML NEBU IH SCH ×2 (07:56→20:16)
[2021-02-14] MEDS: BUDESONIDE 0.5 MG/2 ML NEBU IH SCH ×2 (07:56→20:16)
[2021-02-14 08:19] LABS: Hematocrit 26.6 % (30.3-42.9); Hemoglobin 8.5 gm/dl (10.1-14.3); Mean Corpuscular HGB Conc 32 % (30-34); Mean Corpuscular Volume 89 fl (79-97); Platelet Count 370 K/mm3 (140-440); Red Blood Count 2.99 M/mm3 (3.65-5.03); Red Cell Distribution Width 16.3 % (13.2-15.2)
[2021-02-14 08:38] LABS: Calcium 9.1 mg/dL (8.4-10.2)
[2021-02-14] MEDS: FAMOTIDINE 20 MG TAB PO SCH (09:08)
[2021-02-14] MEDS: METOPROLOL TARTRATE 25 MG TAB PO SCH ×2 (09:08→21:20)
[2021-02-14] MEDS: HEPARIN 5,000 UNIT/1 ML VIAL SUB-Q SCH ×2 (09:09→21:20)
--- NOTE | 2021-02-14 09:18 | Progress Note ---
Assessment and Plan 71-year-old female acute respiratory failure on high flow oxygen 70% no longer on pressors has anemia with acute renal insufficiency EF is 40% with with mild pulmonary pretension. Start IV diuretics if patient does not tolerate consider thoracentesis. Has anemia elevated white count discussed with primary care team about cardiac findings and patient care - Patient Problems (1) Acute renal failure Current Visit: Yes Status: Acute Qualifiers: Acute renal failure type: with acute tubular necrosis Qualified Code(s): N17.0 - Acute kidney failure with tubular necrosis (2) Non-ST elevated myocardial infarction (non-STEMI) Current Visit: Yes Status: Acute Plan to address problem: type 2 (3) Acute exacerbation of CHF (congestive heart failure) Current Visit: Yes Status: Acute Qualifiers: Heart failure type: systolic Qualified Code(s): I50.23 - Acute on chronic systolic (congestive) heart failure (4) Acute heart failure Current Visit: Yes Status: Acute Qualifiers: Heart failure type: systolic Qualified Code(s): I50.21 - Acute systolic (congestive) heart failure (5) Acute respiratory failure with hypoxia Current Visit: Yes Status: Acute (6) Bilateral pleural effusion Current Visit: Yes Status: Acute (7) Sepsis Current Visit: Yes Status: Acute Qualifiers: Severe sepsis shock status: with septic shock (8) HLD (hyperlipidemia) Current Visit: Yes Status: Chronic Qualifiers: Hyperlipidemia type: mixed hyperlipidemia Qualified Code(s): E78.2 - Mixed hyperlipidemia (9) T2DM (type 2 diabetes mellitus) Current Visit: Yes Status: Chronic Qualifiers: Diabetes mellitus residential 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 Subjective Date of service: 02/14/21 Principal diagnosis: sob Interval history: lying in chair mode in bed, sob is present Objective Vital Signs Temp Pulse Pulse Pulse Resp Resp BP 02/14/21 09:08 108 H 160/70 02/14/21 08:13 98.4 F 02/14/21 08:00 105 H 105 H 34 H 145/67 02/14/21 07:56 103 H 20 02/14/21 07:00 105 H 39 H 129/49 02/14/21 06:01 122 H 51 H 157/85 02/14/21 05:00 101 H 26 H 128/66 02/14/21 04:37 104 H 02/14/21 04:00 98.9 F 106 H 104 H 36 H 142/61 02/14/21 03:00 126 H 25 H 129/76 02/14/21 02:44 02/14/21 02:00 126 H 41 H 105/66 02/14/21 01:00 119 H 40 H 117/64 02/14/21 00:00 94 H 97 H 41 H 132/65 02/13/21 23:07 95 H 35 H 129/59 02/13/21 23:00 97 H 37 H 129/59 02/13/21 22:33 120 H 134/68 02/13/21 22:00 117 H 29 H 135/67 02/13/21 21:00 101 H 29 H 131/56 02/13/21 20:01 113 H 30 H 02/13/21 20:00 98.4 F 115 H 38 H 132/62 02/13/21 19:57 117 H 40 H 02/13/21 19:46 119 H 41 H 148/71 02/13/21 19:31 136 H 41 H 148/71 02/13/21 19:15 126 H 41 H 118/54 02/13/21 19:00 118 H 24 118/67 02/13/21 18:45 120 H 23 124/55 02/13/21 18:30 119 H 21 123/55 02/13/21 18:15 122 H 29 H 129/60 02/13/21 18:00 98 H 36 H 130/43 02/13/21 17:45 94 H 31 H 112/44 02/13/21 17:31 95 H 24 139/65 02/13/21 17:15 92 H 30 H 153/63 02/13/21 17:00 95 H 39 H 146/63 02/13/21 16:45 91 H 30 H 139/65 02/13/21 16:30 90 23 136/53 02/13/21 16:15 92 H 37 H 134/62 02/13/21 16:01 89 27 H 130/50 02/13/21 16:00 98.2 F 101 H 20 02/13/21 15:45 89 32 H 147/48 02/13/21 15:30 89 26 H 138/56 02/13/21 15:15 88 26 H 145/59 02/13/21 15:01 89 30 H 140/53 02/13/21 14:45 90 28 H 140/53 02/13/21 14:30 90 27 H 119/62 02/13/21 14:15 92 H 17 126/39 02/13/21 14:01 97 H 33 H 126/39 02/13/21 13:45 91 H 31 H 122/47 02/13/21 13:30 94 H 19 115/42 02/13/21 13:15 84 20 126/61 02/13/21 13:00 87 25 H 128/63 02/13/21 12:45 90 22 132/67 02/13/21 12:30 90 25 H 141/60 02/13/21 12:15 82 18 134/61 02/13/21 12:00 98.3 F 87 101 H 20 138/63 02/13/21 11:45 110 H 20 121/64 02/13/21 11:30 112 H 19 126/72 02/13/21 11:15 112 H 26 H 123/70 02/13/21 11:00 112 H 21 126/69 02/13/21 10:45 110 H 23 128/67 02/13/21 10:30 118 H 33 H 129/63 02/13/21 10:15 115 H 20 124/72 02/13/21 10:00 96 H 20 131/56 02/13/21 09:49 02/13/21 09:45 98 H 22 131/56 02/13/21 09:30 100 H 16 137/75 02/13/21 09:20 99 H 20 Pulse Ox 02/14/21 09:08 02/14/21 08:13 02/14/21 08:00 90 02/14/21 07:56 93 02/14/21 07:00 86 02/14/21 06:01 80 L 02/14/21 05:00 90 02/14/21 04:37 02/14/21 04:00 93 02/14/21 03:00 94 02/14/21 02:44 83 L 02/14/21 02:00 79 L 02/14/21 01:00 89 02/14/21 00:00 90 02/13/21 23:07 86 02/13/21 23:00 86 02/13/21 22:33 02/13/21 22:00 91 02/13/21 21:00 90 02/13/21 20:01 02/13/21 20:00 91 02/13/21 19:57 91 02/13/21 19:46 88 02/13/21 19:31 87 02/13/21 19:15 90 02/13/21 19:00 93 02/13/21 18:45 93 02/13/21 18:30 92 02/13/21 18:15 93 02/13/21 18:00 89 02/13/21 17:45 93 02/13/21 17:31 91 02/13/21 17:15 94 02/13/21 17:00 91 02/13/21 16:45 93 02/13/21 16:30 94 02/13/21 16:15 91 02/13/21 16:01 93 02/13/21 16:00 100 02/13/21 15:45 92 02/13/21 15:30 94 02/13/21 15:15 93 02/13/21 15:01 94 02/13/21 14:45 93 02/13/21 14:30 94 02/13/21 14:15 93 02/13/21 14:01 91 02/13/21 13:45 92 02/13/21 13:30 91 02/13/21 13:15 94 02/13/21 13:00 96 02/13/21 12:45 97 02/13/21 12:30 94 02/13/21 12:15 96 02/13/21 12:00 95 02/13/21 11:45 96 02/13/21 11:30 95 02/13/21 11:15 94 02/13/21 11:00 96 02/13/21 10:45 94 02/13/21 10:30 94 02/13/21 10:15 97 02/13/21 10:00 97 02/13/21 09:49 50 L 02/13/21 09:45 97 02/13/21 09:30 100 02/13/21 09:20 - Physical Examination General: Other (accessory muscle in breathing) HEENT: Positive: EOMI, Normocephaly Neck: Positive: neck supple, trachea midline. Negative: JVD/HJR Cardiac: Positive: Tachycardia Lungs: Positive: Decreased Breath Sounds Neuro: Positive: Grossly Intact Abdomen: Positive: Soft. Negative: Tender Skin: Negative: Rash Musculoskeletal: No Pain Extremities: Present: lower extr. pulses, edema (trace BLE), Other (chronic skin changes noted) - Labs and Meds Cardiac Enzymes 02/13/21 Range/Units Unknown AST 31 (5-40) units/L CBC 02/13/21 02/14/21 Range/Units Unknown 07:49 WBC 24.8 H 25.1 H (4.5-11.0) K/mm3 RBC 2.99 L 2.99 L (3.65-5.03) M/mm3 Hgb 8.3 L 8.5 L (10.1-14.3) gm/dl Hct 26.8 L 26.6 L (30.3-42.9) % Plt Count 379 370 (140-440) K/mm3 Comprehensive Metabolic Panel 02/13/21 02/14/21 Range/Units Unknown 07:49 Sodium 139 142 (137-145) mmol/L Potassium 5.2 H 4.6 (3.6-5.0) mmol/L Chloride 101.1 103.9 (98-107) mmol/L Carbon Dioxide 24 25 (22-30) mmol/L BUN 29 H 39 H (7-17) mg/dL Creatinine 2.2 H 2.1 H (0.6-1.2) mg/dL Glucose 331 H 253 H (65-100) mg/dL Calcium 9.2 9.1 (8.4-10.2) mg/dL AST 31 (5-40) units/L ALT 18 (7-56) units/L Alkaline Phosphatase 55 (35-129) units/L Total Protein 6.4 (6.3-8.2) g/dL Albumin 3.1 L (3.9-5) g/dL - Imaging and Cardiology EKG: report reviewed, image reviewed Echo: report reviewed (Moderate LV dysfunction mild pulmonary hypertension EF 40%), other (2018 - EF 45-50%, trace MR) - Telemetry EKG Rhythm: Sinus Tachycardia Repolarization changes or abnormalities: nonspecific abnormality, ST segment, and/or T wave
[2021-02-14] MEDS: FUROSEMIDE 40 MG/4 ML INJ IV SCH ×2 (09:21→18:19)
--- NOTE | 2021-02-14 09:43 | Electrocardiograph Report ---
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
--- NOTE | 2021-02-14 09:51 | Electrocardiograph Report ---
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
--- NOTE | 2021-02-14 10:23 | Progress Note ---
Assessment and Plan 71 y/o female with acute respiratory failure, cardiac arrest with subsequent ROSC and then self-extubation, now weaned to HFNC with bilateral pleural effusions, cardiomegaly and elevated BNP. 02/14/21: Agree with diuresis, renal function should improve with this. Will see how she responds to this. If effusions don't lessen, may need thora on Tuesday/Tuesday. Also may need to consider inotropic support if she doesn't respond well to lasix. High risk for Ventricular Arrhythmia. Continue step down monitoring. Hopeful can wean HFNC with fluid removal. Also should accept MAPS of 55-60 as she likely lives in a low flow state. 1. Follow up ECHO 2. Agree with obtaining results/records from [facility] 3. Wean Vasopressors for MAPS>60 and normal mentation. 4. Would hold all antihypertensive and rate control meds until off vasopressor therapy. 5. If able to be weaned off pressors, can likely go to step down unit. WIll continue to monitor and follow Subjective Date of service: 02/14/21 Principal diagnosis: sob Interval history: EF is 20-25% on echo. Spoke with cardiology, and they have started lasix. Off vasopressor therapy. Stable. REmains on HFNC. Objective Vital Signs - 12hr 02/13/21 02/13/21 02/13/21 22:33 23:00 23:07 Temperature Pulse Rate 120 H 97 H 95 H Pulse Rate [ Anterior Bilateral Throughout] Pulse Rate [ From Monitor] Respiratory 37 H 35 H Rate Respiratory Rate [Anterior Bilateral Throughout] Blood Pressure 134/68 129/59 129/59 O2 Sat by Pulse 86 86 Oximetry 02/14/21 02/14/21 02/14/21 00:00 01:00 02:00 Temperature Pulse Rate 94 H 119 H 126 H Pulse Rate [ Anterior Bilateral Throughout] Pulse Rate [ 97 H From Monitor] Respiratory 41 H 40 H 41 H Rate Respiratory Rate [Anterior Bilateral Throughout] Blood Pressure 132/65 117/64 105/66 O2 Sat by Pulse 90 89 79 L Oximetry 02/14/21 02/14/21 02/14/21 02:44 03:00 04:00 Temperature 98.9 F Pulse Rate 126 H 106 H Pulse Rate [ Anterior Bilateral Throughout] Pulse Rate [ 104 H From Monitor] Respiratory 25 H 36 H Rate Respiratory Rate [Anterior Bilateral Throughout] Blood Pressure 129/76 142/61 O2 Sat by Pulse 83 L 94 93 Oximetry 02/14/21 02/14/21 02/14/21 04:37 05:00 06:01 Temperature Pulse Rate 104 H 101 H 122 H Pulse Rate [ Anterior Bilateral Throughout] Pulse Rate [ From Monitor] Respiratory 26 H 51 H Rate Respiratory Rate [Anterior Bilateral Throughout] Blood Pressure 128/66 157/85 O2 Sat by Pulse 90 80 L Oximetry 02/14/21 02/14/21 02/14/21 07:00 07:56 08:00 Temperature Pulse Rate 105 H 105 H Pulse Rate [ 103 H Anterior Bilateral Throughout] Pulse Rate [ 105 H From Monitor] Respiratory 39 H 34 H Rate Respiratory 20 Rate [Anterior Bilateral Throughout] Blood Pressure 129/49 145/67 O2 Sat by Pulse 86 93 90 Oximetry 02/14/21 02/14/21 08:13 09:08 Temperature 98.4 F Pulse Rate 108 H Pulse Rate [ Anterior Bilateral Throughout] Pulse Rate [ From Monitor] Respiratory Rate Respiratory Rate [Anterior Bilateral Throughout] Blood Pressure 160/70 O2 Sat by Pulse Oximetry CBC and BMP: 02/14/21 07:49 02/14/21 07:49 ABG, PT/INR, D-dimer: ABG ABG pH 7.349 (7.320-7.450) 02/13/21 08:53 POC ABG pCO2 42.7 mmHg (32.0-48.0) 02/13/21 08:53 POC ABG pO2 110.6 mmHg (83-108) H 02/13/21 08:53 POC ABG HCO3 23.0 02/13/21 08:53 ABG O2 Saturation 98.1 (0-100) 02/13/21 08:53 PT/INR, D-dimer PT 13.8 Sec. (12.2-14.9) 02/12/21 12:20 INR 1.01 (0.87-1.13) 02/12/21 12:20 Abnormal lab findings: Abnormal Labs 02/12/21 02/12/21 02/12/21 10:45 11:59 12:20 WBC RBC Hgb Hct MCHC RDW Plt Count Seg Neuts % (Manual) Lymphocytes % (Manual) Seg Neutrophils # Man Lymphocytes # (Manual) Monocytes # (Manual) Basophils # (Manual) APTT ABG pH 7.265 L POC ABG pCO2 49.9 H POC ABG pO2 168.3 H ABG Hemoglobin 10.1 L ABG Oxyhemoglobin 98.5 H ABG Potassium ABG Glucose 330 H Carboxyhemoglobin 0.3 L Potassium Carbon Dioxide BUN Creatinine Glucose POC Glucose 291 H Hemoglobin A1c Lactic Acid Direct Bilirubin Troponin T 0.058 H NT-Pro-B Natriuret Pep Albumin LDL Cholesterol Direct Arterial Blood Glucose 330 H Urine WBC (Auto) 02/12/21 02/12/21 02/12/21 12:20 12:20 12:20 WBC RBC Hgb Hct MCHC RDW Plt Count Seg Neuts % (Manual) Lymphocytes % (Manual) Seg Neutrophils # Man Lymphocytes # (Manual) Monocytes # (Manual) Basophils # (Manual) APTT 22.9 L ABG pH POC ABG pCO2 POC ABG pO2 ABG Hemoglobin ABG Oxyhemoglobin ABG Potassium ABG Glucose Carboxyhemoglobin Potassium Carbon Dioxide 21 L BUN 20 H Creatinine 1.7 H Glucose 278 H POC Glucose Hemoglobin A1c Lactic Acid 4.50 H* Direct Bilirubin 0.3 H Troponin T 0.056 H NT-Pro-B Natriuret Pep Albumin 3.4 L LDL Cholesterol Direct 40 L Arterial Blood Glucose Urine WBC (Auto) 02/12/21 02/12/21 02/12/21 12:20 14:25 16:46 WBC 30.4 H RBC 3.34 L Hgb 9.2 L Hct MCHC 29 L RDW 17.0 H Plt Count 458 H Seg Neuts % (Manual) 90.5 H Lymphocytes % (Manual) 0.5 L Seg Neutrophils # Man 27.5 H Lymphocytes # (Manual) 0.2 L Monocytes # (Manual) 1.8 H Basophils # (Manual) 0.2 H APTT ABG pH POC ABG pCO2 POC ABG pO2 ABG Hemoglobin ABG Oxyhemoglobin ABG Potassium ABG Glucose Carboxyhemoglobin Potassium Carbon Dioxide BUN Creatinine Glucose POC Glucose Hemoglobin A1c Lactic Acid 4.50 H* Direct Bilirubin Troponin T NT-Pro-B Natriuret Pep 6717 H Albumin LDL Cholesterol Direct Arterial Blood Glucose Urine WBC (Auto) 02/12/21 02/12/21 02/12/21 16:56 20:35 Unknown WBC RBC Hgb Hct MCHC RDW Plt Count Seg Neuts % (Manual) Lymphocytes % (Manual) Seg Neutrophils # Man Lymphocytes # (Manual) Monocytes # (Manual) Basophils # (Manual) APTT ABG pH 7.275 L POC ABG pCO2 POC ABG pO2 185.8 H ABG Hemoglobin 9.5 L ABG Oxyhemoglobin 98.6 H ABG Potassium 4.7 H ABG Glucose 330 H Carboxyhemoglobin 0.3 L Potassium Carbon Dioxide BUN Creatinine Glucose POC Glucose 307 H Hemoglobin A1c Lactic Acid Direct Bilirubin Troponin T NT-Pro-B Natriuret Pep Albumin LDL Cholesterol Direct Arterial Blood Glucose 330 H Urine WBC (Auto) 42.0 H 02/13/21 02/13/21 02/13/21 00:50 08:09 08:53 WBC RBC Hgb Hct MCHC RDW Plt Count Seg Neuts % (Manual) Lymphocytes % (Manual) Seg Neutrophils # Man Lymphocytes # (Manual) Monocytes # (Manual) Basophils # (Manual) APTT ABG pH POC ABG pCO2 POC ABG pO2 110.6 H ABG Hemoglobin 9.1 L ABG Oxyhemoglobin ABG Potassium 5.0 H ABG Glucose 338 H Carboxyhemoglobin 0.1 L Potassium Carbon Dioxide BUN Creatinine Glucose POC Glucose 278 H 289 H Hemoglobin A1c Lactic Acid Direct Bilirubin Troponin T NT-Pro-B Natriuret Pep Albumin LDL Cholesterol Direct Arterial Blood Glucose 338 H Urine WBC (Auto) 02/13/21 02/13/21 02/13/21 10:32 12:19 16:53 WBC RBC Hgb Hct MCHC RDW Plt Count Seg Neuts % (Manual) Lymphocytes % (Manual) Seg Neutrophils # Man Lymphocytes # (Manual) Monocytes # (Manual) Basophils # (Manual) APTT ABG pH POC ABG pCO2 POC ABG pO2 ABG Hemoglobin ABG Oxyhemoglobin ABG Potassium ABG Glucose Carboxyhemoglobin Potassium Carbon Dioxide BUN Creatinine Glucose POC Glucose 295 H 268 H Hemoglobin A1c Lactic Acid Direct Bilirubin Troponin T 0.069 H D NT-Pro-B Natriuret Pep Albumin LDL Cholesterol Direct Arterial Blood Glucose Urine WBC (Auto) 02/13/21 02/13/21 02/13/21 18:00 21:30 Unknown WBC 24.8 H RBC 2.99 L Hgb 8.3 L Hct 26.8 L MCHC RDW 16.4 H Plt Count Seg Neuts % (Manual) 98.0 H Lymphocytes % (Manual) Seg Neutrophils # Man 24.3 H Lymphocytes # (Manual) 0.0 L Monocytes # (Manual) Basophils # (Manual) APTT ABG pH POC ABG pCO2 POC ABG pO2 ABG Hemoglobin ABG Oxyhemoglobin ABG Potassium ABG Glucose Carboxyhemoglobin Potassium Carbon Dioxide BUN Creatinine Glucose POC Glucose 258 H Hemoglobin A1c Lactic Acid Direct Bilirubin Troponin T 0.051 H D NT-Pro-B Natriuret Pep Albumin LDL Cholesterol Direct Arterial Blood Glucose Urine WBC (Auto) 02/13/21 02/13/21 02/14/21 Unknown Unknown 07:11 WBC RBC Hgb Hct MCHC RDW Plt Count Seg Neuts % (Manual) Lymphocytes % (Manual) Seg Neutrophils # Man Lymphocytes # (Manual) Monocytes # (Manual) Basophils # (Manual) APTT ABG pH POC ABG pCO2 POC ABG pO2 ABG Hemoglobin ABG Oxyhemoglobin ABG Potassium ABG Glucose Carboxyhemoglobin Potassium 5.2 H Carbon Dioxide BUN 29 H Creatinine 2.2 H Glucose 331 H POC Glucose 244 H Hemoglobin A1c 7.0 H Lactic Acid Direct Bilirubin Troponin T NT-Pro-B Natriuret Pep Albumin 3.1 L LDL Cholesterol Direct Arterial Blood Glucose Urine WBC (Auto) 02/14/21 02/14/21 07:49 07:49 WBC 25.1 H RBC 2.99 L Hgb 8.5 L Hct 26.6 L MCHC RDW 16.3 H Plt Count Seg Neuts % (Manual) Lymphocytes % (Manual) Seg Neutrophils # Man Lymphocytes # (Manual) Monocytes # (Manual) Basophils # (Manual) APTT ABG pH POC ABG pCO2 POC ABG pO2 ABG Hemoglobin ABG Oxyhemoglobin ABG Potassium ABG Glucose Carboxyhemoglobin Potassium Carbon Dioxide BUN 39 H Creatinine 2.1 H Glucose 253 H POC Glucose Hemoglobin A1c Lactic Acid Direct Bilirubin Troponin T NT-Pro-B Natriuret Pep Albumin LDL Cholesterol Direct Arterial Blood Glucose Urine WBC (Auto)
[2021-02-14] MEDS: SENNOSIDES/DOCUSATE SODIUM 8.6/50 MG TAB FEEDTUBE SCH (11:13)
[2021-02-14] MEDS: MORPHINE 2 MG/1 ML INJ IV PRN ×2 (11:26→22:40)
[2021-02-14] MEDS: ALPRAZolam 0.5 MG TAB PO PRN ×2 (11:26→21:20)
[2021-02-14] MEDS ORDERED: INSULIN GLARGINE 100 UNITS/ML SUB-Q ONE (12:00)
--- NOTE | 2021-02-14 12:38 | Progress Note ---
<LEANNETREMAYNE LisaEdenilson - Last Filed: 02/14/21 13:06> Assessment and Plan Assessment and plan: This is a 62-year-old female with COPD, CHF, HTN, GERD, breast cancer, arthritis HLD, type 2 diabetes mellitus admitted s/p cardiac arrest with acute exacerbation of congestive heart failure, acute hypoxic respiratory failure, sepsis, acute kidney injury and electrolyte imbalances Neuro Acute metabolic encephalopathy -Fall/aspiration precautions -Reorientation as needed -02/12 CT head shows no acute intracranial abnormality Anxiety -Xanax prn S/p GLF, per patient in early January -PT/OT consult CV S/p cardiac arrest -02/13 echocardiogram shows left ventricular function moderate to severely decreased, LVEF 20 to 25%, right ventricle systolic function normal, mitral valve annular calcification, thickened and calcified leaflets, mild to moderate mitral valve regurgitation, RVSP 11 mmHg, trace TR, large left pleural effusion with no pericardial effusion -Cardiology consulted, appreciate recommendations CHF -Cardiology consulted -Per cardiology 03/2018 echocardiogram showed ejection fraction of 45 to 50%, trace MR, trace TR -02/13 echocardiogram shows left ventricular function moderate to severely d ecreased, LVEF 20 to 25%, right ventricle systolic function normal, mitral valve annular calcification, thickened and calcified leaflets, mild to moderate mitral valve regurgitation, RVSP 11 mmHg, trace TR, large left pleural effusion with no pericardial effusion -IV lasix S/p hypotension -Patient was started on Levophed in the emergency department which has since been titrated off -Blood pressure monitoring per protocol Hypertension -Patient has a history of hypertension -Resume home antihypertenisive medication and titrate as needed Elevated troponin -Cardiology consulted -s/p cardiac arrest -Trend trop -Maybe NSTEMI type II Hyperlipidemia -Resume home statin Respiratory Acute respiratory failure -S/p mechanical ventilation s/p self extuabtion, weaned from BiPAP -Presently on high flow nasal cannula -Supplemental oxygen as needed -Pulmonary hygiene -SPO2 monitor per protocol Bilateral pleural effusions -evidenced on cxr -s/p lasix in ED -lasix IV, sprinolactone PO -Consider thoracentesis if no improvement in respiratory status and response to Lasix FEN/GI Hyperkalemia, resolved -K 5.2 -Kayexalate -Trend potassium Acute kidney injury, improving -Presented with a BUN/creatinine of 1.7/20, 02/13 BUN/creatinine 2.2/29 -Strict urine output -Avoid nephrotoxic medications -Renally dose medications -Daily weights -Nephrology consult if continues to increase Elevated troponin -02/12 troponin 0 0.058, 0.056, 0.069 -Patient received ACLS after PEA arrest -Cardiology consulted, appreciate recommendations Acute exacerbation of CHF -Unknown EF -Presented with a BMP of [id number] -Cardiology consulted, appreciate recommendations -Echocardiogram pending Lactic acidosis, resolved -Presented with a lactic acid of 4.5, 02/13 lactic acid 0.8 NAD -strict I&O -asencio ID Sepsis -abx therapy -Presented with hypoxia, tachycardia, hypotension, -BC x2 pending -Tracheal aspirate pending Leukocytosis -ABX therapy -Trend CBC h/o Breast CA Endo DM -SSI, long acting insulin (titrate as needed) -Hbg A1C -Acccuchecks -Hypoglycemic protocol -CC consistent carbohydrate Skin Bilateral lower extremity skin lacerations -WOCN consulted -Wound care per nursing The high probability of a clinically significant, sudden or life threatening deterioration of the [cardio/respiratory] system(s) required my full and direct attention, intervention and personal management. The aggregate critical care time was [35] minutes. This time is in addition to time spent performing reported procedures but includes the following: [x] Data Review and interpretation [x] Patient assessment and monitoring of vital signs [x] Documentation [x] Medication orders and managementdiet DVT/GI prophylaxis: PPI, SCDs to bilateral ultrasound in bed, heparin subcu Disposition: May transfer to IMCU Lines: CVL, asencio History Interval history: This is a 62-year-old female with COPD, CHF, HTN, GERD, breast cancer, arthritis HLD, type 2 diabetes mellitus who presented to the emergency department on 02/12 with complaints of severe shortness of breath and upon presentation patient assistance duration was 70% despite being on BiPAP and was electively intubated. After intubation patient had cardiac arrest with PEA and ACLS was initiated for approximately 5 minutes with achievement of ROSC. Patient later self extubated and was placed back on BiPAP. Work-up in the emergency department revealed leukocytosis, lactic acidosis, and CXR showed bilateral pleural effusions with pulmonary edema, elevated proBNP, elevated troponins. Patient was admitted to the hospital service s/p cardiac arrest, acute hypoxic respiratory failure, acute exacerbation of CHF and sepsis with consults to cardiology and [facility]. 02/13: Patient weaned to high flow nasal cannula, echocardiogram pending, Levophed titrated off, COVID-19 PCR negative 02/14: Patient was transferred to stepdown status, per cardiology patient received IV Lasix to help with pleural effusion seen on echocardiogram. Echocardiogram read with ejection fraction of 20 to 25%. Patient was started on Xanax to help with anxiety. Long-acting insulin increased due to persistent hyperglycemia Hospitalist Physical - Constitutional Vitals: Temp Pulse Resp BP Pulse Ox 98 F 86 25 H 126/48 90 02/14/21 12:00 02/14/21 12:00 02/14/21 12:00 02/14/21 10:01 02/14/21 12:00 General appearance: Present: no acute distress, mild distress - EENT Eyes: Present: PERRL, EOM intact ENT: hearing intact, clear oral mucosa - Neck Neck: Present: normal ROM - Respiratory Respiratory effort: normal Respiratory: bilateral: diminished - Cardiovascular Rhythm: regular Heart Sounds: Present: S1 & S2. Absent: systolic murmur, diastolic murmur - Extremities Extremities: no ischemia, pulses intact, pulses symmetrical, normal temperature, normal color, Full ROM Peripheral Pulses: within normal limits - Abdominal General gastrointestinal: soft, non-tender, non-distended, normal bowel sounds - Integumentary Integumentary: Present: warm, dry - Psychiatric Psychiatric: cooperative - Neurologic Neurologic: CNII-XII intact, no focal deficits, moves all extremities - Allied Health Allied health notes reviewed: nursing, RT, social work HEART Score - HEART Score EKG: Non-specific Age: > 65 Risk factors: 1-2 risk factors Troponin: Troponin T 0.051 ng/mL (0.00-0.029) H D 02/13/21 18:00 Troponin: < normal limit - Critical Actions Critical Actions: 4-6 pts:12-16.6% risk of adverse cardiac event. Should be admitted Results - Labs CBC & Chem 7: 02/14/21 07:49 02/14/21 07:49 Labs: Laboratory Last Values WBC 25.1 K/mm3 (4.5-11.0) H 02/14/21 07:49 RBC 2.99 M/mm3 (3.65-5.03) L 02/14/21 07:49 Hgb 8.5 gm/dl (10.1-14.3) L 02/14/21 07:49 Hct 26.6 % (30.3-42.9) L 02/14/21 07:49 MCV 89 fl (79-97) 02/14/21 07:49 MCH 28 pg (28-32) 02/14/21 07:49 MCHC 32 % (30-34) 02/14/21 07:49 RDW 16.3 % (13.2-15.2) H 02/14/21 07:49 Plt Count 370 K/mm3 (140-440) 02/14/21 07:49 Add Manual Diff Complete 02/13/21 Unknown Total Counted 100 02/13/21 Unknown Seg Neutrophils % Typewriter Operator Automatic 02/13/21 Unknown Seg Neuts % (Manual) 98.0 % (40.0-70.0) H 02/13/21 Unknown Band Neutrophils % 2.0 % 02/13/21 Unknown Lymphocytes % (Manual) 0.5 % (13.4-35.0) L 02/12/21 14:25 Monocytes % (Manual) 6.0 % (0.0-7.3) 02/12/21 14:25 Basophils % (Manual) 0.5 % (0.0-1.8) 02/12/21 14:25 Metamyelocytes % 1.0 % 02/12/21 14:25 Myelocytes % 0.5 % 02/12/21 14:25 Nucleated RBC % Not Reportable 02/13/21 Unknown Seg Neutrophils # Man 24.3 K/mm3 (1.8-7.7) H 02/13/21 Unknown Band Neutrophils # 0.5 K/mm3 02/13/21 Unknown Lymphocytes # (Manual) 0.0 K/mm3 (1.2-5.4) L 02/13/21 Unknown Abs React Lymphs (Man) 0.0 K/mm3 02/13/21 Unknown Monocytes # (Manual) 0.0 K/mm3 (0.0-0.8) 02/13/21 Unknown Eosinophils # (Manual) 0.0 K/mm3 (0.0-0.4) 02/13/21 Unknown Basophils # (Manual) 0.0 K/mm3 (0.0-0.1) 02/13/21 Unknown Metamyelocytes # 0.0 K/mm3 02/13/21 Unknown Myelocytes # 0.0 K/mm3 02/13/21 Unknown Promyelocytes # 0.0 K/mm3 02/13/21 Unknown Blast Cells # 0.0 K/mm3 02/13/21 Unknown WBC Morphology Not Reportable 02/13/21 Unknown Hypersegmented Neuts Not Reportable 02/13/21 Unknown Hyposegmented Neuts Not Reportable 02/13/21 Unknown Hypogranular Neuts Not Reportable 02/13/21 Unknown Smudge Cells Not Reportable 02/13/21 Unknown Toxic Granulation Not Reportable 02/13/21 Unknown Toxic Vacuolation Not Reportable 02/13/21 Unknown Dohle Bodies Not Reportable 02/13/21 Unknown Pelger-Huet Anomaly Not Reportable 02/13/21 Unknown Dawn Rods Not Reportable 02/13/21 Unknown Platelet Estimate Consistent w auto 02/13/21 Unknown Clumped Platelets Not Reportable 02/13/21 Unknown Plt Clumps, EDTA Not Reportable 02/13/21 Unknown Large Platelets Not Reportable 02/13/21 Unknown Giant Platelets Not Reportable 02/13/21 Unknown Platelet Satelliting Not Reportable 02/13/21 Unknown Plt Morphology Comment Not Reportable 02/13/21 Unknown RBC Morphology Not Reportable 02/13/21 Unknown Dimorphic RBCs Not Reportable 02/13/21 Unknown Polychromasia Not Reportable 02/13/21 Unknown Hypochromasia Not Reportable 02/13/21 Unknown Poikilocytosis Not Reportable 02/13/21 Unknown Anisocytosis Not Reportable 02/13/21 Unknown Microcytosis Not Reportable 02/13/21 Unknown Macrocytosis Not Reportable 02/13/21 Unknown Spherocytes Not Reportable 02/13/21 Unknown Pappenheimer Bodies Not Reportable 02/13/21 Unknown Sickle Cells Not Reportable 02/13/21 Unknown Target Cells Not Reportable 02/13/21 Unknown Tear Drop Cells Not Reportable 02/13/21 Unknown Ovalocytes Few 02/13/21 Unknown Helmet Cells Not Reportable 02/13/21 Unknown Phipps-Sheldahl Bodies Not Reportable 02/13/21 Unknown Bristow Rings Not Reportable 02/13/21 Unknown Yahaira Cells Not Reportable 02/13/21 Unknown Bite Cells Not Reportable 02/13/21 Unknown Crenated Cell Not Reportable 02/13/21 Unknown Elliptocytes Not Reportable 02/13/21 Unknown Acanthocytes (Spur) Not Reportable 02/13/21 Unknown Rouleaux Not Reportable 02/13/21 Unknown Hemoglobin C Crystals Not Reportable 02/13/21 Unknown Schistocytes Not Reportable 02/13/21 Unknown Malaria parasites Not Reportable 02/13/21 Unknown Mayo Bodies Not Reportable 02/13/21 Unknown Hem Pathologist Commnt No 02/13/21 Unknown PT 13.8 Sec. (12.2-14.9) 02/12/21 12:20 INR 1.01 (0.87-1.13) 02/12/21 12:20 APTT 22.9 Sec. (24.2-36.6) L 02/12/21 12:20 ABG pH 7.349 (7.320-7.450) 02/13/21 08:53 POC ABG pCO2 42.7 mmHg (32.0-48.0) 02/13/21 08:53 POC ABG pO2 110.6 mmHg (83-108) H 02/13/21 08:53 POC ABG HCO3 23.0 02/13/21 08:53 ABG O2 Saturation 98.1 (0-100) 02/13/21 08:53 POC ABG Base Excess -2.5 02/13/21 08:53 ABG Hemoglobin 9.1 (12.0-17.5) L 02/13/21 08:53 ABG Oxyhemoglobin 97.7 (94-98) 02/13/21 08:53 ABG Methemoglobin 0.3 (0.0-1.5) 02/13/21 08:53 ABG Sodium 137.0 mmol/L (136.0-145.0) 02/13/21 08:53 ABG Potassium 5.0 mmol/L (3.40-4.50) H 02/13/21 08:53 ABG Chloride 106.0 mmol/L (98-107) 02/13/21 08:53 ABG Glucose 338 mg/dL (65-95) H 02/13/21 08:53 ABG Lactate 2.74 (0.18-30.0) 02/12/21 16:56 Carboxyhemoglobin 0.1 (0.5-1.5) L 02/13/21 08:53 FiO2 % 65.0 02/13/21 08:53 Sodium 142 mmol/L (137-145) 02/14/21 07:49 Potassium 4.6 mmol/L (3.6-5.0) 02/14/21 07:49 Chloride 103.9 mmol/L (98-107) 02/14/21 07:49 Carbon Dioxide 25 mmol/L (22-30) 02/14/21 07:49 Anion Gap 18 mmol/L 02/14/21 07:49 BUN 39 mg/dL (7-17) H 02/14/21 07:49 Creatinine 2.1 mg/dL (0.6-1.2) H 02/14/21 07:49 Estimated GFR 23 ml/min 02/14/21 07:49 BUN/Creatinine Ratio 19 % 02/14/21 07:49 Glucose 253 mg/dL (65-100) H 02/14/21 07:49 POC Glucose 229 mg/dL (70-105) H 02/14/21 11:37 Hemoglobin A1c 7.0 % (4-6) H 02/13/21 Unknown Lactic Acid 0.80 mmol/L (0.7-2.0) 02/13/21 Unknown Calcium 9.1 mg/dL (8.4-10.2) 02/14/21 07:49 Magnesium 2.20 mg/dL (1.7-2.3) 02/14/21 07:49 Total Bilirubin 0.30 mg/dL (0.1-1.2) 02/13/21 Unknown Direct Bilirubin 0.3 mg/dL (0-0.2) H 02/12/21 12:20 Indirect Bilirubin 0.3 mg/dL 02/12/21 12:20 AST 31 units/L (5-40) 02/13/21 Unknown ALT 18 units/L (7-56) 02/13/21 Unknown Alkaline Phosphatase 55 units/L (35-129) 02/13/21 Unknown Ammonia 39.0 umol/L (25-60) 02/12/21 12:20 Troponin T 0.051 ng/mL (0.00-0.029) H D 02/13/21 18:00 NT-Pro-B Natriuret Pep 6717 pg/mL (0-900) H 02/12/21 12:20 Total Protein 6.4 g/dL (6.3-8.2) 02/13/21 Unknown Albumin 3.1 g/dL (3.9-5) L 02/13/21 Unknown Albumin/Globulin Ratio 0.9 % 02/13/21 Unknown Triglycerides 94 mg/dL (2-149) 02/12/21 12:20 Cholesterol 99 mg/dL (50-199) 02/12/21 12:20 LDL Cholesterol Direct 40 mg/dL (50-130) L 02/12/21 12:20 HDL Cholesterol 42 mg/dL (40-59) 02/12/21 12:20 Cholesterol/HDL Ratio 2.35 % 02/12/21 12:20 Arterial Blood Glucose 338 mg/dL (65-95) H 02/13/21 08:53 Arterial Blood Ionized Calcium 4.7 mg/dL (4.6-5.3) 02/13/21 08:53 Urine Color Vikki (Yellow) 02/12/21 Unknown Urine Turbidity Cloudy (Clear) 02/12/21 Unknown Urine pH 5.0 (5.0-7.0) 02/12/21 Unknown Ur Specific [place] 1.017 (1.003-1.030) 02/12/21 Unknown Urine Protein >500 mg/dL (Negative) 02/12/21 Unknown Urine Glucose (UA) >=500 mg/dL (Negative) 02/12/21 Unknown Urine Ketones Neg mg/dL (Negative) 02/12/21 Unknown Urine Blood Neg (Negative) 02/12/21 Unknown Urine Nitrite Neg (Negative) 02/12/21 Unknown Urine Bilirubin Neg (Negative) 02/12/21 Unknown Urine Urobilinogen < 2.0 mg/dL (<2.0) 02/12/21 Unknown Ur Leukocyte Esterase Neg (Negative) 02/12/21 Unknown Urine WBC (Auto) 42.0 /HPF (0.0-6.0) H 02/12/21 Unknown Urine RBC (Auto) 2.0 /HPF (0.0-6.0) 02/12/21 Unknown U Epithel Cells (Auto) 5.0 /HPF (0-13.0) 02/12/21 Unknown Hyaline Casts 5 /LPF 02/12/21 Unknown Granular Casts 5 /LPF 02/12/21 Unknown Urine Mucus 1+ /HPF 02/12/21 Unknown Coronavirus (PCR) Negative (Negative) 02/12/21 09:17 Microbiology: Microbiology 02/12/21 11:40 Peripheral/Venous Blood Culture - Preliminary NO GROWTH AFTER 48 HOURS 02/12/21 11:45 Peripheral/Venous Blood Culture - Preliminary NO GROWTH AFTER 48 HOURS 02/12/21 Unknown Urine,Clean Catch Urine Culture - Final NO GROWTH AFTER 48 HOURS Asencio/IV: Voiding Method Indwelling Catheter Active Medications - Current Medications Current Medications: Generic Name Dose Route Start Last Admin Trade Name Freq PRN Reason Stop Dose Admin Acetaminophen 650 mg 02/12/21 20:45 Acetaminophen 325 Mg Tab PO Q4H PRN Pain MILD(1-3)/Fever >100.5/CHAMBERS Albuterol 2.5 mg 02/13/21 09:54 Albuterol 2.5 Mg/3 Ml Nebu IH Q4HRT PRN Wheezing Alprazolam 0.5 mg 02/14/21 10:42 02/14/21 11:26 Alprazolam 0.5 Mg Tab PO 0.5 mg TID PRN Administration Anxiety Arformoterol Tartrate 15 mcg 02/13/21 20:00 02/14/21 07:56 Arformoterol 15 Mcg/2 Ml Nebu IH 15 mcg Q12HRT AV Administration Atorvastatin Calcium 40 mg 02/12/21 22:00 02/13/21 22:32 Atorvastatin 40 Mg Tab PO 40 mg QHS AV Administration Budesonide 0.5 mg 02/13/21 20:00 02/14/21 07:56 Budesonide 0.5 Mg/2 Ml Nebu IH 0.5 mg Q12HRT AV Administration Dextrose 50 ml 02/13/21 11:30 Dextrose 50% In Water (25gm) 50 Ml Syringe IV Q30MIN PRN Hypoglycemia Protocol Famotidine 20 mg 02/14/21 10:00 02/14/21 09:08 Famotidine 20 Mg Tab PO 20 mg DAILY AV Administration Furosemide 40 mg 02/14/21 09:00 02/14/21 09:21 Furosemide 40 Mg/4 Ml Inj IV 40 mg 0600,1800 AV Administration Heparin Sodium (Porcine) 5,000 unit 02/12/21 22:00 02/14/21 09:09 Heparin 5,000 Unit/1 Ml Vial SUB-Q 5,000 unit Q12HR AV Administration Hydralazine HCl 10 mg 02/12/21 20:49 Hydralazine 20 Mg/1 Ml Inj IV Q3H PRN SBP >/=160; DBP >/=100 Hydromorphone HCl 0.5 mg 02/12/21 20:45 02/13/21 06:18 Hydromorphone 1 Mg/1 Ml Inj IV 0.5 mg Q3H PRN Administration Pain , Severe (7-10) Hydrophilic Ointment 1 applic 02/12/21 10:49 Lip Therapy Vaseline TP Q2HR PRN Dry Lips Sodium Chloride 1,000 mls @ 42 mls/hr 02/12/21 20:45 Nacl 0.9% 1000 Ml IV DIRECT AV Azithromycin 500 mg in 250 mls @ 250 mls/hr 02/12/21 21:00 02/13/21 22:20 Zithromax/Ns IV 250 mls/hr Q24H AV Administration Ceftriaxone Sodium 2 gm in 100 mls @ 200 mls/hr 02/12/21 21:00 02/13/21 22:19 Rocephin/Ns 2 Gm/100 Ml IV 200 mls/hr Q24H AV Administration Protocol Insulin Glargine 10 units 02/15/21 08:00 Insulin Glargine 100 Units/Ml SUB-Q QAMDIAB [facility] Insulin Human Lispro 0 unit 02/13/21 11:30 02/14/21 11:54 Insulin Lispro 100 Unit/Ml SUB-Q 3 unit ACHS AV Administration Protocol Metoclopramide HCl 5 mg 02/12/21 20:56 Metoclopramide 10 Mg/2 Ml Inj IV Q6H PRN Nausea And Vomiting Metoprolol Tartrate 50 mg 02/14/21 07:53 02/14/21 09:08 Metoprolol Tartrate 25 Mg Tab PO 50 mg BID AV Administration Morphine Sulfate 2 mg 02/12/21 20:45 02/14/21 11:26 Morphine 2 Mg/1 Ml Inj IV 2 mg Q4H PRN Administration Pain, Moderate (4-6) Multi-Ingred Cream/Lotion/Oil/Oint 1 applic 02/12/21 10:49 Mineral Oil/Petrolatum, White Ophth Oint 3.5 Gm OU Q4HR PRN Dry Eye(s) Ondansetron HCl 4 mg 02/12/21 20:45 Ondansetron 4 Mg/2 Ml Inj IV Q8H PRN Nausea And Vomiting Oxycodone/Acetaminophen 1 tab 02/12/21 20:45 Oxycodone /Acetaminophen 5-325mg Tab PO Q6H PRN Pain, Moderate (4-6) Senna/Docusate Sodium 1 tab 02/12/21 22:00 02/14/21 11:13 Sennosides/Docusate Sodium 8.6/50 Mg Tab FEEDTUBE Not Given BID AV Sodium Chloride 10 ml 02/12/21 22:00 02/14/21 11:14 Sodium Chloride 0.9% 10 Ml Flush Syringe IV 10 ml BID AV Administration Sodium Chloride 10 ml 02/12/21 20:45 Sodium Chloride 0.9% 10 Ml Flush Syringe IV PRN PRN LINE FLUSH Nutrition/Malnutrition Assess - Dietary Evaluation Nutrition/Malnutrition Findings: Nutrition Notes Start: 02/13/21 11: 14 Freq: Status: Active Protocol: Document 02/14/21 12:02 CW (Rec: 02/14/21 12:07 CW [id number]) Nutrition Notes Initial or Follow up Reassessment Current Diagnosis COPD,Diabetes,Sepsis, Hypertension,Heart Failure, Respiratory Failure, Hyperlipidemia Other Pertinent Diagnosis COVID PUI Current Diet Consistent CHO Labs/Tests BUN 39 Cr 2.1 BG 253 Pertinent Medications Humalog Lasix Pulmicort lantus kionex Height 5 ft 2 in Weight 98.2 kg [place] Body Weight (kg) 50.00 BMI 39.6 Weight Status Morbidly Obese Subjective/Other Information RN screen for MST and skin risk. Pt very lethargic upon visit and could not answer nutrtion questions at the time . RN unsure of PO intake for breakfast. Perry score of 16 Burn Absent Trauma Absent Minimum of two criteria No Fluid Accumulation Mild (non-severe) #1 Nutrition Diagnosis Predicted suboptimal energy intake As Evidenced by Signs and Symptoms pt lethargic and likely did not consume breakfast Diagnosis Progress(for reassessment Continues documentation) Is patient on ventilator? No Is Patient Ambulatory and/or Out of Bed No REE-([facility]-confined to bed) 1757.748 Kcal/Kg value to use for calculation 15 Approximate Energy Requirements Using 1473 kcal/Kg Calculation Used for Recommendations Kcal/kg Additional Notes Protein: (1-1.2g/kg AdjBW: 74. 1kg) 74-89g Fluid: 1 ml/kcal or per MD Nutrition Intervention Change Diet Order: Continue Goal #1 Meet at least 75% of protein and energy needs via PO Follow-Up By: 02/16/21 Additional Comments F/U for intakes and need for ONS <RAFAT MARROQUIN - Last Filed: 02/15/21 14:29> Assessment and Plan Assessment and plan: Agree with assessment and plan as outlined by nurse practitioner as above, I personally seen the patient and reviewed the charts and made necessary recommendations to plan as outlined above. Patient downgraded to high flow nasal cannula oxygen, seems very lethargic and has anxiety. We will continue to monitor. Hospitalist Physical - Constitutional Vitals: Temp Pulse Resp BP Pulse Ox 97.7 F 83 18 113/44 100 02/15/21 12:00 02/15/21 14:00 02/15/21 14:00 02/15/21 14:00 02/15/21 14:00 HEART Score - HEART Score Troponin: Troponin T 0.051 ng/mL (0.00-0.029) H D 02/13/21 18:00 Results - Labs CBC & Chem 7: 02/15/21 05:50 02/15/21 05:50 Labs: Laboratory Last Values WBC 14.4 K/mm3 (4.5-11.0) H 02/15/21 05:50 RBC 2.69 M/mm3 (3.65-5.03) L 02/15/21 05:50 Hgb 7.4 gm/dl (10.1-14.3) L 02/15/21 05:50 Hct 24.0 % (30.3-42.9) L 02/15/21 05:50 MCV 89 fl (79-97) 02/15/21 05:50 MCH 28 pg (28-32) 02/15/21 05:50 MCHC 31 % (30-34) 02/15/21 05:50 RDW 16.3 % (13.2-15.2) H 02/15/21 05:50 Plt Count 296 K/mm3 (140-440) 02/15/21 05:50 Add Manual Diff Complete 02/13/21 Unknown Total Counted 100 02/13/21 Unknown Seg Neutrophils % Typewriter Operator Automatic 02/13/21 Unknown Seg Neuts % (Manual) 98.0 % (40.0-70.0) H 02/13/21 Unknown Band Neutrophils % 2.0 % 02/13/21 Unknown Lymphocytes % (Manual) 0.5 % (13.4-35.0) L 02/12/21 14:25 Monocytes % (Manual) 6.0 % (0.0-7.3) 02/12/21 14:25 Basophils % (Manual) 0.5 % (0.0-1.8) 02/12/21 14:25 Metamyelocytes % 1.0 % 02/12/21 14:25 Myelocytes % 0.5 % 02/12/21 14:25 Nucleated RBC % Not Reportable 02/13/21 Unknown Seg Neutrophils # Man 24.3 K/mm3 (1.8-7.7) H 02/13/21 Unknown Band Neutrophils # 0.5 K/mm3 02/13/21 Unknown Lymphocytes # (Manual) 0.0 K/mm3 (1.2-5.4) L 02/13/21 Unknown Abs React Lymphs (Man) 0.0 K/mm3 02/13/21 Unknown Monocytes # (Manual) 0.0 K/mm3 (0.0-0.8) 02/13/21 Unknown Eosinophils # (Manual) 0.0 K/mm3 (0.0-0.4) 02/13/21 Unknown Basophils # (Manual) 0.0 K/mm3 (0.0-0.1) 02/13/21 Unknown Metamyelocytes # 0.0 K/mm3 02/13/21 Unknown Myelocytes # 0.0 K/mm3 02/13/21 Unknown Promyelocytes # 0.0 K/mm3 02/13/21 Unknown Blast Cells # 0.0 K/mm3 02/13/21 Unknown WBC Morphology Not Reportable 02/13/21 Unknown Hypersegmented Neuts Not Reportable 02/13/21 Unknown Hyposegmented Neuts Not Reportable 02/13/21 Unknown Hypogranular Neuts Not Reportable 02/13/21 Unknown Smudge Cells Not Reportable 02/13/21 Unknown Toxic Granulation Not Reportable 02/13/21 Unknown Toxic Vacuolation Not Reportable 02/13/21 Unknown Dohle Bodies Not Reportable 02/13/21 Unknown Pelger-Huet Anomaly Not Reportable 02/13/21 Unknown Dawn Rods Not Reportable 02/13/21 Unknown Platelet Estimate Consistent w auto 02/13/21 Unknown Clumped Platelets Not Reportable 02/13/21 Unknown Plt Clumps, EDTA Not Reportable 02/13/21 Unknown Large Platelets Not Reportable 02/13/21 Unknown Giant Platelets Not Reportable 02/13/21 Unknown Platelet Satelliting Not Reportable 02/13/21 Unknown Plt Morphology Comment Not Reportable 02/13/21 Unknown RBC Morphology Not Reportable 02/13/21 Unknown Dimorphic RBCs Not Reportable 02/13/21 Unknown Polychromasia Not Reportable 02/13/21 Unknown Hypochromasia Not Reportable 02/13/21 Unknown Poikilocytosis Not Reportable 02/13/21 Unknown Anisocytosis Not Reportable 02/13/21 Unknown Microcytosis Not Reportable 02/13/21 Unknown Macrocytosis Not Reportable 02/13/21 Unknown Spherocytes Not Reportable 02/13/21 Unknown Pappenheimer Bodies Not Reportable 02/13/21 Unknown Sickle Cells Not Reportable 02/13/21 Unknown Target Cells Not Reportable 02/13/21 Unknown Tear Drop Cells Not Reportable 02/13/21 Unknown Ovalocytes Few 02/13/21 Unknown Helmet Cells Not Reportable 02/13/21 Unknown Phipps-Sheldahl Bodies Not Reportable 02/13/21 Unknown Bristow Rings Not Reportable 02/13/21 Unknown [place] Cells Not Reportable 02/13/21 Unknown Bite Cells Not Reportable 02/13/21 Unknown Crenated Cell Not Reportable 02/13/21 Unknown Elliptocytes Not Reportable 02/13/21 Unknown Acanthocytes (Spur) Not Reportable 02/13/21 Unknown Rouleaux Not Reportable 02/13/21 Unknown Hemoglobin C Crystals Not Reportable 02/13/21 Unknown Schistocytes Not Reportable 02/13/21 Unknown Malaria parasites Not Reportable 02/13/21 Unknown Mayo Bodies Not Reportable 02/13/21 Unknown Hem Pathologist Commnt No 02/13/21 Unknown PT 13.8 Sec. (12.2-14.9) 02/12/21 12:20 INR 1.01 (0.87-1.13) 02/12/21 12:20 APTT 22.9 Sec. (24.2-36.6) L 02/12/21 12:20 ABG pH 7.349 (7.320-7.450) 02/13/21 08:53 POC ABG pCO2 42.7 mmHg (32.0-48.0) 02/13/21 08:53 POC ABG pO2 110.6 mmHg (83-108) H 02/13/21 08:53 POC ABG HCO3 23.0 02/13/21 08:53 ABG O2 Saturation 98.1 (0-100) 02/13/21 08:53 POC ABG Base Excess -2.5 02/13/21 08:53 ABG Hemoglobin 9.1 (12.0-17.5) L 02/13/21 08:53 ABG Oxyhemoglobin 97.7 (94-98) 02/13/21 08:53 ABG Methemoglobin 0.3 (0.0-1.5) 02/13/21 08:53 ABG Sodium 137.0 mmol/L (136.0-145.0) 02/13/21 08:53 ABG Potassium 5.0 mmol/L (3.40-4.50) H 02/13/21 08:53 ABG Chloride 106.0 mmol/L (98-107) 02/13/21 08:53 ABG Glucose 338 mg/dL (65-95) H 02/13/21 08:53 ABG Lactate 2.74 (0.18-30.0) 02/12/21 16:56 Carboxyhemoglobin 0.1 (0.5-1.5) L 02/13/21 08:53 FiO2 % 65.0 02/13/21 08:53 Sodium 144 mmol/L (137-145) 02/15/21 05:50 Potassium 4.8 mmol/L (3.6-5.0) 02/15/21 05:50 Chloride 107.1 mmol/L (98-107) H 02/15/21 05:50 Carbon Dioxide 30 mmol/L (22-30) 02/15/21 05:50 Anion Gap 12 mmol/L 02/15/21 05:50 BUN 44 mg/dL (7-17) H 02/15/21 05:50 Creatinine 2.3 mg/dL (0.6-1.2) H 02/15/21 05:50 Estimated GFR 21 ml/min 02/15/21 05:50 BUN/Creatinine Ratio 19 % 02/15/21 05:50 Glucose 162 mg/dL (65-100) H 02/15/21 05:50 POC Glucose 160 mg/dL (70-105) H 02/15/21 11:40 Hemoglobin A1c 7.0 % (4-6) H 02/13/21 Unknown Lactic Acid 0.80 mmol/L (0.7-2.0) 02/13/21 Unknown Calcium 8.8 mg/dL (8.4-10.2) 02/15/21 05:50 Magnesium 2.20 mg/dL (1.7-2.3) 02/14/21 07:49 Total Bilirubin 0.30 mg/dL (0.1-1.2) 02/13/21 Unknown Direct Bilirubin 0.3 mg/dL (0-0.2) H 02/12/21 12:20 Indirect Bilirubin 0.3 mg/dL 02/12/21 12:20 AST 31 units/L (5-40) 02/13/21 Unknown ALT 18 units/L (7-56) 02/13/21 Unknown Alkaline Phosphatase 55 units/L (35-129) 02/13/21 Unknown Ammonia 39.0 umol/L (25-60) 02/12/21 12:20 Troponin T 0.051 ng/mL (0.00-0.029) H D 02/13/21 18:00 NT-Pro-B Natriuret Pep 6717 pg/mL (0-900) H 02/12/21 12:20 Total Protein 6.4 g/dL (6.3-8.2) 02/13/21 Unknown Albumin 3.1 g/dL (3.9-5) L 02/13/21 Unknown Albumin/Globulin Ratio 0.9 % 02/13/21 Unknown Triglycerides 94 mg/dL (2-149) 02/12/21 12:20 Cholesterol 99 mg/dL (50-199) 02/12/21 12:20 LDL Cholesterol Direct 40 mg/dL (50-130) L 02/12/21 12:20 HDL Cholesterol 42 mg/dL (40-59) 02/12/21 12:20 Cholesterol/HDL Ratio 2.35 % 02/12/21 12:20 Arterial Blood Glucose 338 mg/dL (65-95) H 02/13/21 08:53 Arterial Blood Ionized Calcium 4.7 mg/dL (4.6-5.3) 02/13/21 08:53 Urine Color Vikki (Yellow) 02/12/21 Unknown Urine Turbidity Cloudy (Clear) 02/12/21 Unknown Urine pH 5.0 (5.0-7.0) 02/12/21 Unknown Ur Specific [place] 1.017 (1.003-1.030) 02/12/21 Unknown Urine Protein >500 mg/dL (Negative) 02/12/21 Unknown Urine Glucose (UA) >=500 mg/dL (Negative) 02/12/21 Unknown Urine Ketones Neg mg/dL (Negative) 02/12/21 Unknown Urine Blood Neg (Negative) 02/12/21 Unknown Urine Nitrite Neg (Negative) 02/12/21 Unknown Urine Bilirubin Neg (Negative) 02/12/21 Unknown Urine Urobilinogen < 2.0 mg/dL (<2.0) 02/12/21 Unknown Ur Leukocyte Esterase Neg (Negative) 02/12/21 Unknown Urine WBC (Auto) 42.0 /HPF (0.0-6.0) H 02/12/21 Unknown Urine RBC (Auto) 2.0 /HPF (0.0-6.0) 02/12/21 Unknown U Epithel Cells (Auto) 5.0 /HPF (0-13.0) 02/12/21 Unknown Hyaline Casts 5 /LPF 02/12/21 Unknown Granular Casts 5 /LPF 02/12/21 Unknown Urine Mucus 1+ /HPF 02/12/21 Unknown Coronavirus (PCR) Negative (Negative) 02/12/21 09:17 Blood Type A POSITIVE 02/15/21 11:30 Antibody Screen Negative 02/15/21 11:30 Crossmatch See Detail 02/15/21 11:30 Microbiology: Microbiology 02/12/21 11:45 Peripheral/Venous Blood Culture - Preliminary NO GROWTH AFTER 72 HOURS 02/12/21 11:40 Peripheral/Venous Blood Culture - Preliminary NO GROWTH AFTER 72 HOURS 02/12/21 12:03 Tracheal Aspirate Sputum Culture - Final 02/12/21 Unknown Urine,Clean Catch Urine Culture - Final NO GROWTH AFTER 48 HOURS Asencio/IV: Voiding Method Indwelling Catheter Active Medications - Current Medications Current Medications: Generic Name Dose Route Start Last Admin Trade Name Freq PRN Reason Stop Dose Admin Acetaminophen 650 mg 02/12/21 20:45 Acetaminophen 325 Mg Tab PO Q4H PRN Pain MILD(1-3)/Fever >100.5/CHAMBERS Albuterol 2.5 mg 02/13/21 09:54 Albuterol 2.5 Mg/3 Ml Nebu IH Q4HRT PRN Wheezing Alprazolam 0.5 mg 02/14/21 10:42 02/14/21 21:20 Alprazolam 0.5 Mg Tab PO 0.5 mg TID PRN Administration Anxiety Arformoterol Tartrate 15 mcg 02/13/21 20:00 02/15/21 07:55 Arformoterol 15 Mcg/2 Ml Nebu IH 15 mcg Q12HRT AV Administration Atorvastatin Calcium 40 mg 02/12/21 22:00 02/14/21 21:20 Atorvastatin 40 Mg Tab PO 40 mg QHS AV Administration Budesonide 0.5 mg 02/13/21 20:00 02/15/21 07:55 Budesonide 0.5 Mg/2 Ml Nebu IH 0.5 mg Q12HRT AV Administration Dextrose 50 ml 02/13/21 11:30 Dextrose 50% In Water (25gm) 50 Ml Syringe IV Q30MIN PRN Hypoglycemia Protocol Famotidine 20 mg 02/14/21 10:00 02/15/21 10:18 Famotidine 20 Mg Tab PO 20 mg DAILY AV Administration Furosemide 40 mg 02/14/21 09:00 02/15/21 05:51 Furosemide 40 Mg/4 Ml Inj IV 40 mg 0600,1800 AV Administration Heparin Sodium (Porcine) 5,000 unit 02/12/21 22:00 02/15/21 10:18 Heparin 5,000 Unit/1 Ml Vial SUB-Q 5,000 unit Q12HR AV Administration Hydralazine HCl 10 mg 02/12/21 20:49 Hydralazine 20 Mg/1 Ml Inj IV Q3H PRN SBP >/=160; DBP >/=100 Hydromorphone HCl 0.5 mg 02/12/21 20:45 02/15/21 10:20 Hydromorphone 1 Mg/1 Ml Inj IV 0.5 mg Q3H PRN Administration Pain , Severe (7-10) Hydrophilic Ointment 1 applic 02/12/21 10:49 Lip Therapy Vaseline TP Q2HR PRN Dry Lips Sodium Chloride 1,000 mls @ 42 mls/hr 02/12/21 20:45 Nacl 0.9% 1000 Ml IV DIRECT AV Azithromycin 500 mg in 250 mls @ 250 mls/hr 02/12/21 21:00 02/14/21 20:32 Zithromax/Ns IV 250 mls/hr Q24H AV Administration Ceftriaxone Sodium 2 gm in 100 mls @ 200 mls/hr 02/12/21 21:00 02/14/21 20:31 Rocephin/Ns 2 Gm/100 Ml IV 200 mls/hr Q24H AV Administration Protocol Milrinone Lactate/Dextrose 20 mg in 100 mls @ 3.683 mls/hr 02/15/21 11:00 02/15/21 11:25 Milrinone-D5w 20 Mg/100 Ml IV 02/16/21 10:59 0.125 mcg/kg/min DIRECT AV 3.683 mls/hr Administration Protocol 0.125 MCG/KG/MIN Sodium Chloride 500 mls @ 0 mls/hr 02/15/21 10:16 Nacl 0.9% 500 Ml IV 02/15/21 20:00 ONCE NR As Directed Insulin Glargine 10 units 02/15/21 08:00 02/15/21 08:24 Insulin Glargine 100 Units/Ml SUB-Q Not Given QAMDIAB [facility] Insulin Human Lispro 0 unit 02/13/21 11:30 02/15/21 12:09 Insulin Lispro 100 Unit/Ml SUB-Q Not Given ACHS [facility] Protocol Metoclopramide HCl 5 mg 02/12/21 20:56 Metoclopramide 10 Mg/2 Ml Inj IV Q6H PRN Nausea And Vomiting Metoprolol Tartrate 50 mg 02/14/21 07:53 02/15/21 10:18 Metoprolol Tartrate 25 Mg Tab PO 50 mg BID AV Administration Morphine Sulfate 2 mg 02/12/21 20:45 02/14/21 22:40 Morphine 2 Mg/1 Ml Inj IV 2 mg Q4H PRN Administration Pain, Moderate (4-6) Multi-Ingred Cream/Lotion/Oil/Oint 1 applic 02/12/21 10:49 Mineral Oil/Petrolatum, White Ophth Oint 3.5 Gm OU Q4HR PRN Dry Eye(s) Ondansetron HCl 4 mg 02/12/21 20:45 Ondansetron 4 Mg/2 Ml Inj IV Q8H PRN Nausea And Vomiting Oxycodone/Acetaminophen 1 tab 02/12/21 20:45 Oxycodone /Acetaminophen 5-325mg Tab PO Q6H PRN Pain, Moderate (4-6) Phenyleph/Shark Oil/Min Oil/Petrol 1 applic 02/15/21 12:52 Pe/Mo/Pet,Wh 10 Applic/28 Gm Tube IL Q6HR PRN Hemorrhoids Senna/Docusate Sodium 1 tab 02/12/21 22:00 02/15/21 10:17 Sennosides/Docusate Sodium 8.6/50 Mg Tab FEEDTUBE 1 tab BID AV Administration Sodium Chloride 10 ml 02/12/21 22:00 02/15/21 10:17 Sodium Chloride 0.9% 10 Ml Flush Syringe IV 10 ml BID AV Administration Sodium Chloride 10 ml 02/12/21 20:45 Sodium Chloride 0.9% 10 Ml Flush Syringe IV PRN PRN LINE FLUSH Nutrition/Malnutrition Assess - Dietary Evaluation Nutrition/Malnutrition Findings: Nutrition Notes Start: 02/13/21 11:14 Freq: Status: Active Protocol: Document 02/14/21 12:02 CW (Rec: 02/14/21 12:07 CW [id number]) Nutrition Notes Initial or Follow up Reassessment Current Diagnosis COPD,Diabetes,Sepsis, Hypertension,Heart Failure, Respiratory Failure, Hyperlipidemia Other Pertinent Diagnosis COVID PUI Current Diet Consistent CHO Labs/Tests BUN 39 Cr 2.1 BG 253 Pertinent Medications Humalog Lasix Pulmicort lantus kionex Height 5 ft 2 in Weight 98.2 kg [place] Body Weight (kg) 50.00 BMI 39.6 Weight Status Morbidly Obese Subjective/Other Information RN screen for MST and skin risk. Pt very lethargic upon visit and could not answer nutrtion questions at the time . RN unsure of PO intake for breakfast. Perry score of 16 Burn Absent Trauma Absent Minimum of two criteria No Fluid Accumulation Mild (non-severe) #1 Nutrition Diagnosis Predicted suboptimal energy intake As Evidenced by Signs and Symptoms pt lethargic and likely did not consume breakfast Diagnosis Progress(for reassessment Continues documentation) Is patient on ventilator? No Is Patient Ambulatory and/or Out of Bed No REE-([facility]-confined to bed) 1757.748 Kcal/Kg value to use for calculation 15 Approximate Energy Requirements Using 1473 kcal/Kg Calculation Used for Recommendations Kcal/kg Additional Notes Protein: (1-1.2g/kg AdjBW: 74. 1kg) 74-89g Fluid: 1 ml/kcal or per MD Nutrition Intervention Change Diet Order: Continue Goal #1 Meet at least 75% of protein and energy needs via PO Follow-Up By: 02/16/21 Additional Comments F/U for intakes and need for ONS
[2021-02-14] MEDS: cefTRIAXone/NS 2 GM/100 ML 2 GM/100 ML BAG IV SCH (20:31)
[2021-02-14] MEDS: AZITHROMYCIN/NS 500 MG/250 ML 500 MG/250 ML BAG IV SCH (20:32)
[2021-02-15] MEDS ORDERED: LORazepam 2 MG/ML VIAL IV ONE (02:16)
[2021-02-15] MEDS: FUROSEMIDE 40 MG/4 ML INJ IV SCH ×2 (05:51→17:15)
[2021-02-15 06:57] LABS: Hemoglobin 7.4 gm/dl (10.1-14.3); Mean Corpuscular HGB Conc 31 % (30-34); Mean Corpuscular Volume 89 fl (79-97); Platelet Count 296 K/mm3 (140-440); Red Blood Count 2.69 M/mm3 (3.65-5.03); Red Cell Distribution Width 16.3 % (13.2-15.2)
[2021-02-15 07:10] LABS: Calcium 8.8 mg/dL (8.4-10.2)
[2021-02-15] MEDS: INSULIN LISPRO 100 UNIT/ML SUB-Q SCH ×4 (07:26→22:29)
[2021-02-15] MEDS: BUDESONIDE 0.5 MG/2 ML NEBU IH SCH ×2 (07:55→20:19)
[2021-02-15] MEDS: ARFORMOTEROL 15 MCG/2 ML NEBU IH SCH ×2 (07:55→20:19)
[2021-02-15] MEDS: INSULIN GLARGINE 100 UNITS/ML SUB-Q SCH (08:24)
[2021-02-15] MEDS ORDERED: SODIUM CHLORIDE 0.9% 500 ML 500 ML IV NR (10:16)
[2021-02-15] MEDS: SENNOSIDES/DOCUSATE SODIUM 8.6/50 MG TAB FEEDTUBE SCH ×3 (10:17→22:32)
[2021-02-15] MEDS: FAMOTIDINE 20 MG TAB PO SCH (10:18)
[2021-02-15] MEDS: HEPARIN 5,000 UNIT/1 ML VIAL SUB-Q SCH ×2 (10:18→22:29)
[2021-02-15] MEDS: METOPROLOL TARTRATE 25 MG TAB PO SCH ×2 (10:18→22:31)
[2021-02-15] MEDS: HYDROmorphone 1 MG/1 ML INJ IV PRN (10:20)
[2021-02-15] MEDS: MILRINONE-D5W 20 MG/100 ML 20 MG/100 ML BAG IV SCH (11:25)
--- NOTE | 2021-02-15 11:48 | Progress Note ---
Assessment and Plan 71 y/o female with acute respiratory failure, cardiac arrest with subsequent ROSC and then self-extubation, now weaned to HFNC with bilateral pleural effusions, cardiomegaly and elevated BNP. 02/15/21: hopeful inotropes will help with volume removal as well as improve renal function. Hold on intubation right now. Continue to wean FiO2 as tolerated for sats >88%. Very very guarded prognosis. 02/14/21: Agree with diuresis, renal function should improve with this. Will see how she responds to this. If effusions don't lessen, may need thora on Tuesday/Tuesday. Also may need to consider inotropic support if she doesn't respond well to lasix. High risk for Ventricular Arrhythmia. Continue step down monitoring. Hopeful can wean HFNC with fluid removal. Also should accept MAPS of 55-60 as she likely lives in a low flow state. 1. Follow up ECHO 2. Agree with obtaining results/records from [facility] 3. Wean Vasopressors for MAPS>60 and normal mentation. 4. Would hold all antihypertensive and rate control meds until off vasopressor therapy. 5. If able to be weaned off pressors, can likely go to step down unit. WIll continue to monitor and follow Subjective Date of service: 02/15/21 Principal diagnosis: sob Interval history: Negative yesterday but not by much. More anxious overnight and started desaturating. had to be placed back on bipap at 100%. Now after anxiolytic therapy, feels better with better sats. Dropped down to 90%. Spoke with cards and they have agreed with inotropic therapy so started milrinone. Objective Vital Signs - 12hr 02/14/21 02/14/21 02/15/21 23:48 23:49 00:00 Temperature 97.3 F L Pulse Rate 123 H 85 Pulse Rate [ Anterior Bilateral Throughout] Pulse Rate [ 85 From Monitor] Respiratory 28 H 23 Rate Respiratory Rate [Anterior Bilateral Throughout] Blood Pressure 121/89 O2 Sat by Pulse 94 98 Oximetry 02/15/21 02/15/21 02/15/21 00:01 01:00 02:00 Temperature Pulse Rate 84 83 Pulse Rate [ Anterior Bilateral Throughout] Pulse Rate [ From Monitor] Respiratory 25 H 23 Rate Respiratory Rate [Anterior Bilateral Throughout] Blood Pressure 121/89 110/51 O2 Sat by Pulse 98 100 94 Oximetry 0702/15/21 02/15/21 02:01 03:00 03:55 Temperature 97.4 F L Pulse Rate 85 Pulse Rate [ Anterior Bilateral Throughout] Pulse Rate [ From Monitor] Respiratory 23 Rate Respiratory Rate [Anterior Bilateral Throughout] Blood Pressure 134/90 93/37 O2 Sat by Pulse 100 Oximetry 02/15/21 02/15/21 02/15/21 04:00 04:33 05:00 Temperature Pulse Rate 82 81 81 Pulse Rate [ Anterior Bilateral Throughout] Pulse Rate [ 82 From Monitor] Respiratory 20 20 22 Rate Respiratory Rate [Anterior Bilateral Throughout] Blood Pressure 93/37 114/51 114/51 O2 Sat by Pulse 100 100 100 Oximetry 02/15/21 02/15/21 02/15/21 06:01 07:01 07:55 Temperature Pulse Rate 105 H 109 H 105 H Pulse Rate [ 107 H Anterior Bilateral Throughout] Pulse Rate [ From Monitor] Respiratory 28 H 15 35 H Rate Respiratory 22 Rate [Anterior Bilateral Throughout] Blood Pressure 126/86 151/71 157/61 O2 Sat by Pulse 92 91 97 Oximetry 02/15/21 02/15/21 02/15/21 08:00 09:01 10:01 Temperature 97.7 F Pulse Rate 108 H 104 H 85 Pulse Rate [ Anterior Bilateral Throughout] Pulse Rate [ 88 From Monitor] Respiratory 22 26 H 24 Rate Respiratory Rate [Anterior Bilateral Throughout] Blood Pressure 150/76 138/78 129/44 O2 Sat by Pulse 94 97 100 Oximetry 02/15/21 02/15/21 02/15/21 10:18 10:20 11:01 Temperature Pulse Rate 83 125 H Pulse Rate [ Anterior Bilateral Throughout] Pulse Rate [ From Monitor] Respiratory 24 18 Rate Respiratory Rate [Anterior Bilateral Throughout] Blood Pressure 129/44 93/74 O2 Sat by Pulse 91 Oximetry CBC and BMP: 02/15/21 05:50 02/15/21 05:50 ABG, PT/INR, D-dimer: ABG ABG pH 7.349 (7.320-7.450) 02/13/21 08:53 POC ABG pCO2 42.7 mmHg (32.0-48.0) 02/13/21 08:53 POC ABG pO2 110.6 mmHg (83-108) H 02/13/21 08:53 POC ABG HCO3 23.0 02/13/21 08:53 ABG O2 Saturation 98.1 (0-100) 02/13/21 08:53 PT/INR, D-dimer PT 13.8 Sec. (12.2-14.9) 02/12/21 12:20 INR 1.01 (0.87-1.13) 02/12/21 12:20 Abnormal lab findings: Abnormal Labs 02/12/21 02/12/21 02/12/21 10:45 11:59 12:20 WBC RBC Hgb Hct MCHC RDW Plt Count Seg Neuts % (Manual) Lymphocytes % (Manual) Seg Neutrophils # Man Lymphocytes # (Manual) Monocytes # (Manual) Basophils # (Manual) APTT ABG pH 7.265 L POC ABG pCO2 49.9 H POC ABG pO2 168.3 H ABG Hemoglobin 10.1 L ABG Oxyhemoglobin 98.5 H ABG Potassium ABG Glucose 330 H Carboxyhemoglobin 0.3 L Potassium Chloride Carbon Dioxide BUN Creatinine Glucose POC Glucose 291 H Hemoglobin A1c Lactic Acid Direct Bilirubin Troponin T 0.058 H NT-Pro-B Natriuret Pep Albumin LDL Cholesterol Direct Arterial Blood Glucose 330 H Urine WBC (Auto) 02/12/21 02/12/21 02/12/21 12:20 12:20 12:20 WBC RBC Hgb Hct MCHC RDW Plt Count Seg Neuts % (Manual) Lymphocytes % (Manual) Seg Neutrophils # Man Lymphocytes # (Manual) Monocytes # (Manual) Basophils # (Manual) APTT 22.9 L ABG pH POC ABG pCO2 POC ABG pO2 ABG Hemoglobin ABG Oxyhemoglobin ABG Potassium ABG Glucose Carboxyhemoglobin Potassium Chloride Carbon Dioxide 21 L BUN 20 H Creatinine 1.7 H Glucose 278 H POC Glucose Hemoglobin A1c Lactic Acid 4.50 H* Direct Bilirubin 0.3 H Troponin T 0.056 H NT-Pro-B Natriuret Pep Albumin 3.4 L LDL Cholesterol Direct 40 L Arterial Blood Glucose Urine WBC (Auto) 02/12/21 02/12/21 02/12/21 12:20 14:25 16:46 WBC 30.4 H RBC 3.34 L Hgb 9.2 L Hct MCHC 29 L RDW 17.0 H Plt Count 458 H Seg Neuts % (Manual) 90.5 H Lymphocytes % (Manual) 0.5 L Seg Neutrophils # Man 27.5 H Lymphocytes # (Manual) 0.2 L Monocytes # (Manual) 1.8 H Basophils # (Manual) 0.2 H APTT ABG pH POC ABG pCO2 POC ABG pO2 ABG Hemoglobin ABG Oxyhemoglobin ABG Potassium ABG Glucose Carboxyhemoglobin Potassium Chloride Carbon Dioxide BUN Creatinine Glucose POC Glucose Hemoglobin A1c Lactic Acid 4.50 H* Direct Bilirubin Troponin T NT-Pro-B Natriuret Pep 6717 H Albumin LDL Cholesterol Direct Arterial Blood Glucose Urine WBC (Auto) 02/12/21 02/12/21 02/12/21 16:56 20:35 Unknown WBC RBC Hgb Hct MCHC RDW Plt Count Seg Neuts % (Manual) Lymphocytes % (Manual) Seg Neutrophils # Man Lymphocytes # (Manual) Monocytes # (Manual) Basophils # (Manual) APTT ABG pH 7.275 L POC ABG pCO2 POC ABG pO2 185.8 H ABG Hemoglobin 9.5 L ABG Oxyhemoglobin 98.6 H ABG Potassium 4.7 H ABG Glucose 330 H Carboxyhemoglobin 0.3 L Potassium Chloride Carbon Dioxide BUN Creatinine Glucose POC Glucose 307 H Hemoglobin A1c Lactic Acid Direct Bilirubin Troponin T NT-Pro-B Natriuret Pep Albumin LDL Cholesterol Direct Arterial Blood Glucose 330 H Urine WBC (Auto) 42.0 H 02/13/21 02/13/21 02/13/21 00:50 08:09 08:53 WBC RBC Hgb Hct MCHC RDW Plt Count Seg Neuts % (Manual) Lymphocytes % (Manual) Seg Neutrophils # Man Lymphocytes # (Manual) Monocytes # (Manual) Basophils # (Manual) APTT ABG pH POC ABG pCO2 POC ABG pO2 110.6 H ABG Hemoglobin 9.1 L ABG Oxyhemoglobin ABG Potassium 5.0 H ABG Glucose 338 H Carboxyhemoglobin 0.1 L Potassium Chloride Carbon Dioxide BUN Creatinine Glucose POC Glucose 278 H 289 H Hemoglobin A1c Lactic Acid Direct Bilirubin Troponin T NT-Pro-B Natriuret Pep Albumin LDL Cholesterol Direct Arterial Blood Glucose 338 H Urine WBC (Auto) 02/13/21 02/13/21 02/13/21 10:32 12:19 16:53 WBC RBC Hgb Hct MCHC RDW Plt Count Seg Neuts % (Manual) Lymphocytes % (Manual) Seg Neutrophils # Man Lymphocytes # (Manual) Monocytes # (Manual) Basophils # (Manual) APTT ABG pH POC ABG pCO2 POC ABG pO2 ABG Hemoglobin ABG Oxyhemoglobin ABG Potassium ABG Glucose Carboxyhemoglobin Potassium Chloride Carbon Dioxide BUN Creatinine Glucose POC Glucose 295 H 268 H Hemoglobin A1c Lactic Acid Direct Bilirubin Troponin T 0.069 H D NT-Pro-B Natriuret Pep Albumin LDL Cholesterol Direct Arterial Blood Glucose Urine WBC (Auto) 02/13/21 02/13/21 02/13/21 18:00 21:30 Unknown WBC 24.8 H RBC 2.99 L Hgb 8.3 L Hct 26.8 L MCHC RDW 16.4 H Plt Count Seg Neuts % (Manual) 98.0 H Lymphocytes % (Manual) Seg Neutrophils # Man 24.3 H Lymphocytes # (Manual) 0.0 L Monocytes # (Manual) Basophils # (Manual) APTT ABG pH POC ABG pCO2 POC ABG pO2 ABG Hemoglobin ABG Oxyhemoglobin ABG Potassium ABG Glucose Carboxyhemoglobin Potassium Chloride Carbon Dioxide BUN Creatinine Glucose POC Glucose 258 H Hemoglobin A1c Lactic Acid Direct Bilirubin Troponin T 0.051 H D NT-Pro-B Natriuret Pep Albumin LDL Cholesterol Direct Arterial Blood Glucose Urine WBC (Auto) 02/13/21 02/13/21 02/14/21 Unknown Unknown 07:11 WBC RBC Hgb Hct MCHC RDW Plt Count Seg Neuts % (Manual) Lymphocytes % (Manual) Seg Neutrophils # Man Lymphocytes # (Manual) Monocytes # (Manual) Basophils # (Manual) APTT ABG pH POC ABG pCO2 POC ABG pO2 ABG Hemoglobin ABG Oxyhemoglobin ABG Potassium ABG Glucose Carboxyhemoglobin Potassium 5.2 H Chloride Carbon Dioxide BUN 29 H Creatinine 2.2 H Glucose 331 H POC Glucose 244 H Hemoglobin A1c 7.0 H Lactic Acid Direct Bilirubin Troponin T NT-Pro-B Natriuret Pep Albumin 3.1 L LDL Cholesterol Direct Arterial Blood Glucose Urine WBC (Auto) 02/14/21 02/14/21 02/14/21 07:49 07:49 11:37 WBC 25.1 H RBC 2.99 L Hgb 8.5 L Hct 26.6 L MCHC RDW 16.3 H Plt Count Seg Neuts % (Manual) Lymphocytes % (Manual) Seg Neutrophils # Man Lymphocytes # (Manual) Monocytes # (Manual) Basophils # (Manual) APTT ABG pH POC ABG pCO2 POC ABG pO2 ABG Hemoglobin ABG Oxyhemoglobin ABG Potassium ABG Glucose Carboxyhemoglobin Potassium Chloride Carbon Dioxide BUN 39 H Creatinine 2.1 H Glucose 253 H POC Glucose 229 H Hemoglobin A1c Lactic Acid Direct Bilirubin Troponin T NT-Pro-B Natriuret Pep Albumin LDL Cholesterol Direct Arterial Blood Glucose Urine WBC (Auto) 02/14/21 02/14/21 02/15/21 17:04 21:25 05:50 WBC 14.4 H RBC 2.69 L Hgb 7.4 L Hct 24.0 L MCHC RDW 16.3 H Plt Count Seg Neuts % (Manual) Lymphocytes % (Manual) Seg Neutrophils # Man Lymphocytes # (Manual) Monocytes # (Manual) Basophils # (Manual) APTT ABG pH POC ABG pCO2 POC ABG pO2 ABG Hemoglobin ABG Oxyhemoglobin ABG Potassium ABG Glucose Carboxyhemoglobin Potassium Chloride Carbon Dioxide BUN Creatinine Glucose POC Glucose 141 H 121 H Hemoglobin A1c Lactic Acid Direct Bilirubin Troponin T NT-Pro-B Natriuret Pep Albumin LDL Cholesterol Direct Arterial Blood Glucose Urine WBC (Auto) 02/15/21 02/15/21 02/15/21 05:50 07:35 11:40 WBC RBC Hgb Hct MCHC RDW Plt Count Seg Neuts % (Manual) Lymphocytes % (Manual) Seg Neutrophils # Man Lymphocytes # (Manual) Monocytes # (Manual) Basophils # (Manual) APTT ABG pH POC ABG pCO2 POC ABG pO2 ABG Hemoglobin ABG Oxyhemoglobin ABG Potassium ABG Glucose Carboxyhemoglobin Potassium Chloride 107.1 H Carbon Dioxide BUN 44 H Creatinine 2.3 H Glucose 162 H POC Glucose 182 H 160 H Hemoglobin A1c Lactic Acid Direct Bilirubin Troponin T NT-Pro-B Natriuret Pep Albumin LDL Cholesterol Direct Arterial Blood Glucose Urine WBC (Auto)
--- NOTE | 2021-02-15 11:54 | Progress Note ---
Assessment and Plan 71-year-old female acute respiratory failure renal failure anemia junctional tachycardia with moderate LV dysfunction mild pulmonary pretension who is on BiPAP received IV Lasix 1 L output in discussion with blockmason will start low-dose milrinone renal adjusted and see if that will help with forward output. Consider transfusion in view of hemoglobin 7.4 better oxygen carrying capacity - Patient Problems (1) Acute renal failure Current Visit: Yes Status: Acute Qualifiers: Acute renal failure type: with acute tubular necrosis Qualified Code(s): N17.0 - Acute kidney failure with tubular necrosis (2) Non-ST elevated myocardial infarction (non-STEMI) Current Visit: Yes Status: Acute (3) Acute exacerbation of CHF (congestive heart failure) Current Visit: Yes Status: Acute Qualifiers: Heart failure type: systolic Qualified Code(s): I50.23 - Acute on chronic systolic (congestive) heart failure (4) Acute heart failure Current Visit: Yes Status: Acute Qualifiers: Heart failure type: systolic Qualified Code(s): I50.21 - Acute systolic (congestive) heart failure (5) Acute respiratory failure with hypoxia Current Visit: Yes Status: Acute (6) Bilateral pleural effusion Current Visit: Yes Status: Acute (7) Sepsis Current Visit: Yes Status: Acute Qualifiers: Severe sepsis shock status: with septic shock (8) HLD (hyperlipidemia) Current Visit: Yes Status: Chronic Qualifiers: Hyperlipidemia type: mixed hyperlipidemia Qualified Code(s): E78.2 - Mixed hyperlipidemia (9) T2DM (type 2 diabetes mellitus) Current Visit: Yes Status: Chronic Qualifiers: 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 Subjective Date of service: 02/15/21 Principal diagnosis: sob Interval history: on bipap and restless Objective Vital Signs Temp Pulse Pulse Pulse Resp Resp BP 02/15/21 11:01 125 H 18 93/74 02/15/21 10:20 24 02/15/21 10:18 83 129/44 02/15/21 10:01 85 24 129/44 02/15/21 09:01 104 H 26 H 138/78 02/15/21 08:00 97.7 F 108 H 88 22 150/76 02/15/21 07:55 105 H 107 H 35 H 22 157/61 02/15/21 07:01 109 H 15 151/71 02/15/21 06:01 105 H 28 H 126/86 02/15/21 05:00 81 22 114/51 02/15/21 04:33 81 20 114/51 02/15/21 04:00 82 82 20 93/37 02/15/21 03:55 97.4 F L 02/15/21 03:00 85 23 93/37 02/15/21 02:01 134/90 02/15/21 02:00 02/15/21 01:00 83 23 110/51 02/15/21 00:01 84 25 H 121/89 02/15/21 00:00 85 85 23 02/14/21 23:49 97.3 F L 02/14/21 23:48 123 H 28 H 121/89 02/14/21 23:00 94 H 36 H 121/89 02/14/21 22:01 95 H 38 H 122/61 02/14/21 21:33 103 H 37 H 147/67 02/14/21 21:20 103 H 148/64 02/14/21 21:00 99 H 34 H 148/64 02/14/21 20:21 02/14/21 20:16 102 H 22 02/14/21 20:00 100 H 100 H 25 H 147/67 02/14/21 19:52 97.9 F 02/14/21 19:01 100 H 22 150/64 02/14/21 18:00 97 H 28 H 144/64 02/14/21 17:00 99 H 36 H 149/74 02/14/21 16:00 97.1 F L 114 H 86 25 H 143/63 02/14/21 15:42 02/14/21 15:00 108 H 23 133/66 02/14/21 14:01 88 42 H 136/62 02/14/21 13:00 95 H 32 H 136/62 02/14/21 12:43 84 23 02/14/21 12:00 98 F 86 86 25 H Pulse Ox 02/15/21 11:01 91 02/15/21 10:20 02/15/21 10:18 02/15/21 10:01 100 02/15/21 09:01 97 02/15/21 08:00 94 02/15/21 07:55 97 02/15/21 07:01 91 02/15/21 06:01 92 02/15/21 05:00 100 02/15/21 04:33 100 02/15/21 04:00 100 02/15/21 03:55 02/15/21 03:00 100 02/15/21 02:01 02/15/21 02:00 94 02/15/21 01:00 100 02/15/21 00:01 98 02/15/21 00:00 98 02/14/21 23:49 02/14/21 23:48 94 02/14/21 23:00 68 L 02/14/21 22:01 98 02/14/21 21:33 95 02/14/21 21:20 02/14/21 21:00 96 02/14/21 20:21 94 02/14/21 20:16 02/14/21 20:00 94 02/14/21 19:52 02/14/21 19:01 96 02/14/21 18:00 96 02/14/21 17:00 95 02/14/21 16:00 90 02/14/21 15:42 96 02/14/21 15:00 100 02/14/21 14:01 93 02/14/21 13:00 93 02/14/21 12:43 95 02/14/21 12:00 90 - Physical Examination General: Other (accessory muscle in breathing) HEENT: Positive: EOMI, Normocephaly Neck: Positive: neck supple, trachea midline. Negative: JVD/HJR Cardiac: Positive: Tachycardia Lungs: Positive: Decreased Breath Sounds Neuro: Positive: Grossly Intact Abdomen: Positive: Soft. Negative: Tender Skin: Negative: Rash Musculoskeletal: No Pain Extremities: Present: lower extr. pulses, edema (trace BLE), Other (chronic skin changes noted) - Labs and Meds CBC 02/15/21 Range/Units 05:50 WBC 14.4 H (4.5-11.0) K/mm3 RBC 2.69 L (3.65-5.03) M/mm3 Hgb 7.4 L (10.1-14.3) gm/dl Hct 24.0 L (30.3-42.9) % Plt Count 296 (140-440) K/mm3 Comprehensive Metabolic Panel 02/15/21 Range/Units 05:50 Sodium 144 (137-145) mmol/L Potassium 4.8 (3.6-5.0) mmol/L Chloride 107.1 H (98-107) mmol/L Carbon Dioxide 30 (22-30) mmol/L BUN 44 H (7-17) mg/dL Creatinine 2.3 H (0.6-1.2) mg/dL Glucose 162 H (65-100) mg/dL Calcium 8.8 (8.4-10.2) mg/dL - Imaging and Cardiology EKG: report reviewed, image reviewed Echo: report reviewed (Moderate LV dysfunction mild pulmonary hypertension EF 40%), other (2018 - EF 45-50%, trace MR) - Telemetry EKG Rhythm: Junctional (junctional tachycardia) Repolarization changes or abnormalities: nonspecific abnormality, ST segment, and/or T wave
[2021-02-15] MEDS ORDERED: PE/MO/PET,WH 10 APPLIC/28 GM TUBE PR PRN (12:52)
--- NOTE | 2021-02-15 14:33 | Progress Note ---
Assessment and Plan Assessment and plan: This is a 62-year-old female with COPD, CHF, HTN, GERD, breast cancer, arthritis HLD, type 2 diabetes mellitus admitted s/p cardiac arrest with acute exacerbation of congestive heart failure, acute hypoxic respiratory failure, sepsis, acute kidney injury and electrolyte imbalances Neuro Acute metabolic encephalopathy -Fall/aspiration precautions -Reorientation as needed -02/12 CT head shows no acute intracranial abnormality Anxiety -Xanax prn S/p GLF, per patient in early January -PT/OT consult CV S/p cardiac arrest -02/13 echocardiogram shows left ventricular function moderate to severely decreased, LVEF 20 to 25%, right ventricle systolic function normal, mitral valve annular calcification, thickened and calcified leaflets, mild to moderate mitral valve regurgitation, RVSP 11 mmHg, trace TR, large left pleural effusion with no pericardial effusion -Cardiology consulted, appreciate recommendations CHF -Cardiology consulted -Per cardiology 03/2018 echocardiogram showed ejection fraction of 45 to 50%, trace MR, trace TR -02/13 echocardiogram shows left ventricular function moderate to severely decreased, LVEF 20 to 25%, right ventricle systolic function normal, mitral valve annular calcification, thickened and calcified leaflets, mild to moderate mitral valve regurgitation, RVSP 11 mmHg, trace TR, large left pleural effusion with no pericardial effusion -IV lasix start milrinone per cardiology S/p hypotension -Off Levophed -Blood pressure monitoring per protocol Hypertension -Patient has a history of hypertension -Resume home antihypertenisive medication and titrate as needed Elevated troponin -Cardiology consulted -s/p cardiac arrest -Trend trop -Maybe NSTEMI type II Hyperlipidemia -Resume home statin Respiratory Acute respiratory failure -S/p mechanical ventilation s/p self extuabtion, Currently on BiPAP -Pulmonary hygiene -SPO2 monitor per protocol Bilateral pleural effusions -evidenced on cxr -s/p lasix in ED -lasix IV, sprinolactone PO -Consider thoracentesis if no improvement in respiratory status and response to Lasix FEN/GI Hyperkalemia, resolved -K 5.2 -Kayexalate -Trend potassium Acute kidney injury, improving -Presented with a BUN/creatinine of 1.7/20, 02/13 BUN/creatinine 2.2/29 -Strict urine output -Avoid nephrotoxic medications -Renally dose medications -Daily weights -Nephrology consult if continues to increase Elevated troponin -02/12 troponin 0 0.058, 0.056, 0.069 -Patient received ACLS after PEA arrest -Cardiology consulted, appreciate recommendations Acute exacerbation of CHF -Unknown EF -Presented with a BMP of [id number] -Cardiology consulted, appreciate recommendations On BiPAP Lactic acidosis, resolved -Presented with a lactic acid of 4.5, 7/2 lactic acid 0.8 NAD -strict I&O -asencio ID Sepsis -abx therapy -Presented with hypoxia, tachycardia, hypotension, -BC x2 pending -Tracheal aspirate pending Leukocytosis -ABX therapy -Trend CBC h/o Breast CA Endo DM -SSI, long acting insulin (titrate as needed) -Hbg A1C -Acccuchecks -Hypoglycemic protocol -CC consistent carbohydrate Skin Bilateral lower extremity skin lacerations -WOCN consulted -Wound care per nursing The high probability of a clinically significant, sudden or life threatening deterioration of the [cardio/respiratory] system(s) required my full and direct attention, intervention and personal management. The aggregate critical care time was [35] minutes. This time is in addition to time spent performing reported procedures but includes the following: [x] Data Review and interpretation [x] Patient assessment and monitoring of vital signs [x] Documentation [x] Medication orders and managementdiet DVT/GI prophylaxis: PPI, SCDs to bilateral ultrasound in bed, heparin subcu Disposition: May transfer to IMCU Lines: CVL, asencio History Interval history: This is a 62-year-old female with COPD, CHF, HTN, GERD, breast cancer, arthritis HLD, type 2 diabetes mellitus who presented to the emergency department on 02/12 with complaints of severe shortness of breath and upon presentation patient assi stance duration was 70% despite being on BiPAP and was electively intubated. After intubation patient had cardiac arrest with PEA and ACLS was initiated for approximately 5 minutes with achievement of ROSC. Patient later self extubated and was placed back on BiPAP. Work-up in the emergency department revealed leukocytosis, lactic acidosis, and CXR showed bilateral pleural effusions with pulmonary edema, elevated proBNP, elevated troponins. Patient was admitted to the hospital service s/p cardiac arrest, acute hypoxic respiratory failure, acute exacerbation of CHF and sepsis with consults to cardiology and [facility]. 02/13: Patient weaned to high flow nasal cannula, echocardiogram pending, Levophed titrated off, COVID-19 PCR negative 02/14: Patient was transferred to stepdown status, per cardiology patient received IV Lasix to help with pleural effusion seen on echocardiogram. Echocardiogram read with ejection fraction of 20 to 25%. Patient was started on Xanax to help with anxiety. Long-acting insulin increased due to persistent hyperglycemia 02/15: Patient placed back on BiPAP, started to have respiratory decompensation. Spoke with cardiology and pulmonology, will start milrinone, continue Lasix, low threshold for reintubation. Hospitalist Physical - Physical exam Narrative exam: General appearance: Obese, no acute distress, well-nourished EENT: PERRL, EOM intact, hearing intact, clear oral mucosa Respiratory: BiPAP, bilateral rales and minimal wheezes Cardiovascular: Regular rate/rhythm, Normal S1 & S2. No gallop, rub Extremities: no ischemia, No edema, normal temperature, normal color Abdominal: soft, no tenderness, non-distended, normal bowel sounds Integumentary: Lower extremity eschars and wounds Neurologic: Lethargic but arousable - Constitutional Vitals: Temp Pulse Resp BP Pulse Ox 97.7 F 83 18 113/44 100 02/15/21 12:00 02/15/21 14:00 02/15/21 14:00 02/15/21 14:00 02/15/21 14:00 HEART Score - HEART Score EKG: Non-specific Age: > 65 Risk factors: 1-2 risk factors Troponin: Troponin T 0.051 ng/mL (0.00-0.029) H D 02/13/21 18:00 Troponin: < normal limit - Critical Actions Critical Actions: 4-6 pts:12-16.6% risk of adverse cardiac event. Should be admitted Results - Labs CBC & Chem 7: 02/15/21 05:50 02/15/21 05:50 Labs: Laboratory Last Values WBC 14.4 K/mm3 (4.5-11.0) H 02/15/21 05:50 RBC 2.69 M/mm3 (3.65-5.03) L 02/15/21 05:50 Hgb 7.4 gm/dl (10.1-14.3) L 02/15/21 05:50 Hct 24.0 % (30.3-42.9) L 02/15/21 05:50 MCV 89 fl (79-97) 02/15/21 05:50 MCH 28 pg (28-32) 02/15/21 05:50 MCHC 31 % (30-34) 02/15/21 05:50 RDW 16.3 % (13.2-15.2) H 02/15/21 05:50 Plt Count 296 K/mm3 (140-440) 02/15/21 05:50 Add Manual Diff Complete 02/13/21 Unknown Total Counted 100 02/13/21 Unknown Seg Neutrophils % Product Development Director 02/13/21 Unknown Seg Neuts % (Manual) 98.0 % (40.0-70.0) H 02/13/21 Unknown Band Neutrophils % 2.0 % 02/13/21 Unknown Lymphocytes % (Manual) 0.5 % (13.4-35.0) L 02/12/21 14:25 Monocytes % (Manual) 6.0 % (0.0-7.3) 02/12/21 14:25 Basophils % (Manual) 0.5 % (0.0-1.8) 02/12/21 14:25 Metamyelocytes % 1.0 % 02/12/21 14:25 Myelocytes % 0.5 % 02/12/21 14:25 Nucleated RBC % Not Reportable 02/13/21 Unknown Seg Neutrophils # Man 24.3 K/mm3 (1.8-7.7) H 02/13/21 Unknown Band Neutrophils # 0.5 K/mm3 02/13/21 Unknown Lymphocytes # (Manual) 0.0 K/mm3 (1.2-5.4) L 02/13/21 Unknown Abs React Lymphs (Man) 0.0 K/mm3 02/13/21 Unknown Monocytes # (Manual) 0.0 K/mm3 (0.0-0.8) 02/13/21 Unknown Eosinophils # (Manual) 0.0 K/mm3 (0.0-0.4) 02/13/21 Unknown Basophils # (Manual) 0.0 K/mm3 (0.0-0.1) 02/13/21 Unknown Metamyelocytes # 0.0 K/mm3 02/13/21 Unknown Myelocytes # 0.0 K/mm3 02/13/21 Unknown Promyelocytes # 0.0 K/mm3 02/13/21 Unknown Blast Cells # 0.0 K/mm3 02/13/21 Unknown WBC Morphology Not Reportable 02/13/21 Unknown Hypersegmented Neuts Not Reportable 02/13/21 Unknown Hyposegmented Neuts Not Reportable 02/13/21 Unknown Hypogranular Neuts Not Reportable 02/13/21 Unknown Smudge Cells Not Reportable 02/13/21 Unknown Toxic Granulation Not Reportable 02/13/21 Unknown Toxic Vacuolation Not Reportable 02/13/21 Unknown Dohle Bodies Not Reportable 02/13/21 Unknown Pelger-Huet Anomaly Not Reportable 02/13/21 Unknown Dawn Rods Not Reportable 02/13/21 Unknown Platelet Estimate Consistent w auto 02/13/21 Unknown Clumped Platelets Not Reportable 02/13/21 Unknown Plt Clumps, EDTA Not Reportable 02/13/21 Unknown Large Platelets Not Reportable 02/13/21 Unknown Giant Platelets Not Reportable 02/13/21 Unknown Platelet Satelliting Not Reportable 02/13/21 Unknown Plt Morphology Comment Not Reportable 02/13/21 Unknown RBC Morphology Not Reportable 02/13/21 Unknown Dimorphic RBCs Not Reportable 02/13/21 Unknown Polychromasia Not Reportable 02/13/21 Unknown Hypochromasia Not Reportable 02/13/21 Unknown Poikilocytosis Not Reportable 02/13/21 Unknown Anisocytosis Not Reportable 02/13/21 Unknown Microcytosis Not Reportable 02/13/21 Unknown Macrocytosis Not Reportable 02/13/21 Unknown Spherocytes Not Reportable 02/13/21 Unknown Pappenheimer Bodies Not Reportable 02/13/21 Unknown Sickle Cells Not Reportable 02/13/21 Unknown Target Cells Not Reportable 02/13/21 Unknown Tear Drop Cells Not Reportable 02/13/21 Unknown Ovalocytes Few 02/13/21 Unknown Helmet Cells Not Reportable 02/13/21 Unknown Phipps-Belle Bodies Not Reportable 02/13/21 Unknown [place] Rings Not Reportable 02/13/21 Unknown Yahaira Cells Not Reportable 02/13/21 Unknown Bite Cells Not Reportable 02/13/21 Unknown Crenated Cell Not Reportable 02/13/21 Unknown Elliptocytes Not Reportable 02/13/21 Unknown Acanthocytes (Spur) Not Reportable 02/13/21 Unknown Rouleaux Not Reportable 02/13/21 Unknown Hemoglobin C Crystals Not Reportable 02/13/21 Unknown Schistocytes Not Reportable 02/13/21 Unknown Malaria parasites Not Reportable 02/13/21 Unknown Mayo Bodies Not Reportable 02/13/21 Unknown Hem Pathologist Commnt No 02/13/21 Unknown PT 13.8 Sec. (12.2-14.9) 02/12/21 12:20 INR 1.01 (0.87-1.13) 02/12/21 12:20 APTT 22.9 Sec. (24.2-36.6) L 02/12/21 12:20 ABG pH 7.349 (7.320-7.450) 02/13/21 08:53 POC ABG pCO2 42.7 mmHg (32.0-48.0) 02/13/21 08:53 POC ABG pO2 110.6 mmHg (83-108) H 02/13/21 08:53 POC ABG HCO3 23.0 02/13/21 08:53 ABG O2 Saturation 98.1 (0-100) 02/13/21 08:53 POC ABG Base Excess -2.5 02/13/21 08:53 ABG Hemoglobin 9.1 (12.0-17.5) L 02/13/21 08:53 ABG Oxyhemoglobin 97.7 (94-98) 02/13/21 08:53 ABG Methemoglobin 0.3 (0.0-1.5) 02/13/21 08:53 ABG Sodium 137.0 mmol/L (136.0-145.0) 02/13/21 08:53 ABG Potassium 5.0 mmol/L (3.40-4.50) H 02/13/21 08:53 ABG Chloride 106.0 mmol/L (98-107) 02/13/21 08:53 ABG Glucose 338 mg/dL (65-95) H 02/13/21 08:53 ABG Lactate 2.74 (0.18-30.0) 02/12/21 16:56 Carboxyhemoglobin 0.1 (0.5-1.5) L 02/13/21 08:53 FiO2 % 65.0 02/13/21 08:53 Sodium 144 mmol/L (137-145) 02/15/21 05:50 Potassium 4.8 mmol/L (3.6-5.0) 02/15/21 05:50 Chloride 107.1 mmol/L (98-107) H 02/15/21 05:50 Carbon Dioxide 30 mmol/L (22-30) 02/15/21 05:50 Anion Gap 12 mmol/L 02/15/21 05:50 BUN 44 mg/dL (7-17) H 02/15/21 05:50 Creatinine 2.3 mg/dL (0.6-1.2) H 02/15/21 05:50 Estimated GFR 21 ml/min 02/15/21 05:50 BUN/Creatinine Ratio 19 % 02/15/21 05:50 Glucose 162 mg/dL (65-100) H 02/15/21 05:50 POC Glucose 160 mg/dL (70-105) H 02/15/21 11:40 Hemoglobin A1c 7.0 % (4-6) H 02/13/21 Unknown Lactic Acid 0.80 mmol/L (0.7-2.0) 02/13/21 Unknown Calcium 8.8 mg/dL (8.4-10.2) 02/15/21 05:50 Magnesium 2.20 mg/dL (1.7-2.3) 02/14/21 07:49 Total Bilirubin 0.30 mg/dL (0.1-1.2) 02/13/21 Unknown Direct Bilirubin 0.3 mg/dL (0-0.2) H 02/12/21 12:20 Indirect Bilirubin 0.3 mg/dL 02/12/21 12:20 AST 31 units/L (5-40) 02/13/21 Unknown ALT 18 units/L (7-56) 02/13/21 Unknown Alkaline Phosphatase 55 units/L (35-129) 02/13/21 Unknown Ammonia 39.0 umol/L (25-60) 02/12/21 12:20 Troponin T 0.051 ng/mL (0.00-0.029) H D 02/13/21 18:00 NT-Pro-B Natriuret Pep 6717 pg/mL (0-900) H 02/12/21 12:20 Total Protein 6.4 g/dL (6.3-8.2) 02/13/21 Unknown Albumin 3.1 g/dL (3.9-5) L 02/13/21 Unknown Albumin/Globulin Ratio 0.9 % 02/13/21 Unknown Triglycerides 94 mg/dL (2-149) 02/12/21 12:20 Cholesterol 99 mg/dL (50-199) 02/12/21 12:20 LDL Cholesterol Direct 40 mg/dL (50-130) L 02/12/21 12:20 HDL Cholesterol 42 mg/dL (40-59) 02/12/21 12:20 Cholesterol/HDL Ratio 2.35 % 02/12/21 12:20 Arterial Blood Glucose 338 mg/dL (65-95) H 02/13/21 08:53 Arterial Blood Ionized Calcium 4.7 mg/dL (4.6-5.3) 02/13/21 08:53 Urine Color Vikki (Yellow) 02/12/21 Unknown Urine Turbidity Cloudy (Clear) 02/12/21 Unknown Urine pH 5.0 (5.0-7.0) 02/12/21 Unknown Ur Specific [place] 1.017 (1.003-1.030) 02/12/21 Unknown Urine Protein >500 mg/dL (Negative) 02/12/21 Unknown Urine Glucose (UA) >=500 mg/dL (Negative) 02/12/21 Unknown Urine Ketones Neg mg/dL (Negative) 02/12/21 Unknown Urine Blood Neg (Negative) 02/12/21 Unknown Urine Nitrite Neg (Negative) 02/12/21 Unknown Urine Bilirubin Neg (Negative) 02/12/21 Unknown Urine Urobilinogen < 2.0 mg/dL (<2.0) 02/12/21 Unknown Ur Leukocyte Esterase Neg (Negative) 02/12/21 Unknown Urine WBC (Auto) 42.0 /HPF (0.0-6.0) H 02/12/21 Unknown Urine RBC (Auto) 2.0 /HPF (0.0-6.0) 02/12/21 Unknown U Epithel Cells (Auto) 5.0 /HPF (0-13.0) 02/12/21 Unknown Hyaline Casts 5 /LPF 02/12/21 Unknown Granular Casts 5 /LPF 02/12/21 Unknown Urine Mucus 1+ /HPF 02/12/21 Unknown Coronavirus (PCR) Negative (Negative) 02/12/21 09:17 Blood Type A POSITIVE 02/15/21 11:30 Antibody Screen Negative 02/15/21 11:30 Crossmatch See Detail 02/15/21 11:30 Microbiology: Microbiology 02/12/21 11:45 Peripheral/Venous Blood Culture - Preliminary NO GROWTH AFTER 72 HOURS 02/12/21 11:40 Peripheral/Venous Blood Culture - Preliminary NO GROWTH AFTER 72 HOURS 02/12/21 12:03 Tracheal Aspirate Sputum Culture - Final 02/12/21 Unknown Urine,Clean Catch Urine Culture - Final NO GROWTH AFTER 48 HOURS Asencio/IV: Voiding Method Indwelling Catheter Active Medications - Current Medications Current Medications: Generic Name Dose Route Start Last Admin Trade Name Freq PRN Reason Stop Dose Admin Acetaminophen 650 mg 02/12/21 20:45 Acetaminophen 325 Mg Tab PO Q4H PRN Pain MILD(1-3)/Fever >100.5/CHAMBERS Albuterol 2.5 mg 02/13/21 09:54 Albuterol 2.5 Mg/3 Ml Nebu IH Q4HRT PRN Wheezing Alprazolam 0.5 mg 02/14/21 10:42 02/14/21 21:20 Alprazolam 0.5 Mg Tab PO 0.5 mg TID PRN Administration Anxiety Arformoterol Tartrate 15 mcg 02/13/21 20:00 02/15/21 07:55 Arformoterol 15 Mcg/2 Ml Nebu IH 15 mcg Q12HRT AV Administration Atorvastatin Calcium 40 mg 02/12/21 22:00 02/14/21 21:20 Atorvastatin 40 Mg Tab PO 40 mg QHS AV Administration Budesonide 0.5 mg 02/13/21 20:00 02/15/21 07:55 Budesonide 0.5 Mg/2 Ml Nebu IH 0.5 mg Q12HRT AV Administration Dextrose 50 ml 02/13/21 11:30 Dextrose 50% In Water (25gm) 50 Ml Syringe IV Q30MIN PRN Hypoglycemia Protocol Famotidine 20 mg 02/14/21 10:00 02/15/21 10:18 Famotidine 20 Mg Tab PO 20 mg DAILY AV Administration Furosemide 40 mg 02/14/21 09:00 02/15/21 05:51 Furosemide 40 Mg/4 Ml Inj IV 40 mg 0600,1800 AV Administration Heparin Sodium (Porcine) 5,000 unit 02/12/21 22:00 02/15/21 10:18 Heparin 5,000 Unit/1 Ml Vial SUB-Q 5,000 unit Q12HR AV Administration Hydralazine HCl 10 mg 02/12/21 20:49 Hydralazine 20 Mg/1 Ml Inj IV Q3H PRN SBP >/=160; DBP >/=100 Hydromorphone HCl 0.5 mg 02/12/21 20:45 02/15/21 10:20 Hydromorphone 1 Mg/1 Ml Inj IV 0.5 mg Q3H PRN Administration Pain , Severe (7-10) Hydrophilic Ointment 1 applic 02/12/21 10:49 Lip Therapy Vaseline TP Q2HR PRN Dry Lips Sodium Chloride 1,000 mls @ 42 mls/hr 02/12/21 20:45 Nacl 0.9% 1000 Ml IV DIRECT AV Azithromycin 500 mg in 250 mls @ 250 mls/hr 02/12/21 21:00 02/14/21 20:32 Zithromax/Ns IV 250 mls/hr Q24H AV Administration Ceftriaxone Sodium 2 gm in 100 mls @ 200 mls/hr 02/12/21 21:00 02/14/21 20:31 Rocephin/Ns 2 Gm/100 Ml IV 200 mls/hr Q24H AV Administration Protocol Milrinone Lactate/Dextrose 20 mg in 100 mls @ 3.683 mls/hr 02/15/21 11:00 02/15/21 11:25 Milrinone-D5w 20 Mg/100 Ml IV 02/16/21 10:59 0.125 mcg/kg/min DIRECT AV 3.683 mls/hr Administration Protocol 0.125 MCG/KG/MIN Sodium Chloride 500 mls @ 0 mls/hr 02/15/21 10:16 Nacl 0.9% 500 Ml IV 02/15/21 20:00 ONCE NR As Directed Insulin Glargine 10 units 02/15/21 08:00 02/15/21 08:24 Insulin Glargine 100 Units/Ml SUB-Q Not Given QAMDIAB AV Insulin Human Lispro 0 unit 02/13/21 11:30 02/15/21 12:09 Insulin Lispro 100 Unit/Ml SUB-Q Not Given ACHS AV Protocol Metoclopramide HCl 5 mg 02/12/21 20:56 Metoclopramide 10 Mg/2 Ml Inj IV Q6H PRN Nausea And Vomiting Metoprolol Tartrate 50 mg 02/14/21 07:53 02/15/21 10:18 Metoprolol Tartrate 25 Mg Tab PO 50 mg BID AV Administration Morphine Sulfate 2 mg 02/12/21 20:45 02/14/21 22:40 Morphine 2 Mg/1 Ml Inj IV 2 mg Q4H PRN Administration Pain, Moderate (4-6) Multi-Ingred Cream/Lotion/Oil/Oint 1 applic 02/12/21 10:49 Mineral Oil/Petrolatum, White Ophth Oint 3.5 Gm OU Q4HR PRN Dry Eye(s) Ondansetron HCl 4 mg 02/12/21 20:45 Ondansetron 4 Mg/2 Ml Inj IV Q8H PRN Nausea And Vomiting Oxycodone/Acetaminophen 1 tab 02/12/21 20:45 Oxycodone /Acetaminophen 5-325mg Tab PO Q6H PRN Pain, Moderate (4-6) Phenyleph/Shark Oil/Min Oil/Petrol 1 applic 02/15/21 12:52 Pe/Mo/Pet,Wh 10 Applic/28 Gm Tube KS Q6HR PRN Hemorrhoids Senna/Docusate Sodium 1 tab 02/12/21 22:00 02/15/21 10:17 Sennosides/Docusate Sodium 8.6/50 Mg Tab FEEDTUBE 1 tab BID AV Administration Sodium Chloride 10 ml 02/12/21 22:00 02/15/21 10:17 Sodium Chloride 0.9% 10 Ml Flush Syringe IV 10 ml BID AV Administration Sodium Chloride 10 ml 02/12/21 20:45 Sodium Chloride 0.9% 10 Ml Flush Syringe IV PRN PRN LINE FLUSH Nutrition/Malnutrition Assess - Dietary Evaluation Nutrition/Malnutrition Findings: Nutrition Notes Start: 02/13/21 11:14 Freq: Status: Active Protocol: Document 02/14/21 12:02 CW (Rec: 02/14/21 12:07 CW [id number]) Nutrition Notes Initial or Follow up Reassessment Current Diagnosis COPD,Diabetes,Sepsis, Hypertension,Heart Failure, Respiratory Failure, Hyperlipidemia Other Pertinent Diagnosis COVID PUI Current Diet Consistent CHO Labs/Tests BUN 39 Cr 2.1 BG 253 Pertinent Medications Humalog Lasix Pulmicort lantus kionex Height 5 ft 2 in Weight 98.2 kg [place] Body Weight (kg) 50.00 BMI 39.6 Weight Status Morbidly Obese Subjective/Other Information RN screen for MST and skin risk. Pt very lethargic upon visit and could not answer nutrtion questions at the time . RN unsure of PO intake for breakfast. Perry score of 16 Burn Absent Trauma Absent Minimum of two criteria No Fluid Accumulation Mild (non-severe) #1 Nutrition Diagnosis Predicted suboptimal energy intake As Evidenced by Signs and Symptoms pt lethargic and likely did not consume breakfast Diagnosis Progress(for reassessment Continues documentation) Is patient on ventilator? No Is Patient Ambulatory and/or Out of Bed No REE-([place]-St. Jeor-confined to bed) 1757.748 Kcal/Kg value to use for calculation 15 Approximate Energy Requirements Using 1473 kcal/Kg Calculation Used for Recommendations Kcal/kg Additional Notes Protein: (1-1.2g/kg AdjBW: 74. 1kg) 74-89g Fluid: 1 ml/kcal or per MD Nutrition Intervention Change Diet Order: Continue Goal #1 Meet at least 75% of protein and energy needs via PO Follow-Up By: 02/16/21 Additional Comments F/U for intakes and need for ONS
[2021-02-15] MEDS: MORPHINE 2 MG/1 ML INJ IV PRN (22:19)
[2021-02-15] MEDS: cefTRIAXone/NS 2 GM/100 ML 2 GM/100 ML BAG IV SCH (22:20)
[2021-02-15] MEDS: AZITHROMYCIN/NS 500 MG/250 ML 500 MG/250 ML BAG IV SCH (22:25)
[2021-02-16] MEDS: FUROSEMIDE 40 MG/4 ML INJ IV SCH ×2 (05:49→17:00)
[2021-02-16] MEDS: MILRINONE-D5W 20 MG/100 ML 20 MG/100 ML BAG IV SCH (06:36)
[2021-02-16] MEDS: ARFORMOTEROL 15 MCG/2 ML NEBU IH SCH ×2 (07:58→21:26)
[2021-02-16] MEDS: BUDESONIDE 0.5 MG/2 ML NEBU IH SCH ×2 (07:58→21:25)
[2021-02-16] MEDS: INSULIN LISPRO 100 UNIT/ML SUB-Q SCH ×3 (09:04→16:53)
[2021-02-16] MEDS: INSULIN GLARGINE 100 UNITS/ML SUB-Q SCH (09:10)
[2021-02-16] MEDS: HEPARIN 5,000 UNIT/1 ML VIAL SUB-Q SCH ×2 (09:10→22:37)
[2021-02-16] MEDS: SENNOSIDES/DOCUSATE SODIUM 8.6/50 MG TAB FEEDTUBE SCH ×2 (09:11→21:03)
[2021-02-16] MEDS ORDERED: LORazepam 2 MG/ML VIAL IV ONE (09:53)
[2021-02-16] MEDS: ALPRAZolam 0.5 MG TAB PO PRN (09:59)
[2021-02-16] MEDS: METOPROLOL TARTRATE 25 MG TAB PO SCH ×2 (10:13→21:03)
--- NOTE | 2021-02-16 10:39 | Progress Note ---
Assessment and Plan 71-year-old female acute respiratory failure renal failure anemia junctional tachycardia with moderate LV dysfunction mild pulmonary pretension who is on BiPAP received IV Lasix 1 L output in discussion with marketing underwriter will cont low-dose milrinone renal adjusted and see if that will help with forward output till tomorrow. Consider transfusion in view of hemoglobin 7.4 better oxygen carrying capacity. cont iv lasix and bipap on 100% o2 - Patient Problems (1) Acute renal failure Current Visit: Yes Status: Acute Qualifiers: Acute renal failure type: with acute tubular necrosis Qualified Code(s): N17.0 - Acute kidney failure with tubular necrosis (2) Non-ST elevated myocardial infarction (non-STEMI) Current Visit: Yes Status: Acute (3) Acute exacerbation of CHF (congestive heart failure) Current Visit: Yes Status: Acute Qualifiers: Heart failure type: systolic Qualified Code(s): I50.23 - Acute on chronic systolic (congestive) heart failure (4) Acute heart failure Current Visit: Yes Status: Acute Qualifiers: Heart failure type: systolic Qualified Code(s): I50.21 - Acute systolic (congestive) heart failure (5) Acute respiratory failure with hypoxia Current Visit: Yes Status: Acute (6) Bilateral pleural effusion Current Visit: Yes Status: Acute (7) Sepsis Current Visit: Yes Status: Acute Qualifiers: Severe sepsis shock status: with septic shock (8) HLD (hyperlipidemia) Current Visit: Yes Status: Chronic Qualifiers: Hyperlipidemia type: mixed hyperlipidemia Qualified Code(s): E78.2 - Mixed hyperlipidemia (9) T2DM (type 2 diabetes mellitus) Current Visit: Yes Status: Chronic Qualifiers: Diabetes mellitus rate reviewer insulin use: with shelter use Subjective Date of service: 02/16/21 Principal diagnosis: sob Interval history: lethargic on bipap Objective Vital Signs Temp Pulse Pulse Pulse Resp Resp BP 02/16/21 09:00 94 H 22 89/33 02/16/21 08:10 125 H 23 02/16/21 08:01 123 H 18 135/54 02/16/21 08:00 02/16/21 07:34 98.2 F 02/16/21 07:01 114 H 16 135/54 02/16/21 06:00 102 H 24 135/54 02/16/21 05:00 92 H 18 119/45 07/05/21 04:44 93 H 18 115/55 02/16/21 04:00 93 H 93 H 19 121/52 02/16/21 03:00 110 H 19 120/56 02/16/21 02:05 87 19 90/54 02/16/21 02:01 83 22 90/54 02/16/21 02:00 02/16/21 01:00 83 21 101/50 02/16/21 00:00 80 100 H 25 H 107/49 02/15/21 23:01 82 21 106/46 02/15/21 22:31 102 H 138/52 02/15/21 22:19 18 02/15/21 22:01 125 H 21 153/64 02/15/21 21:14 125 H 25 H 02/15/21 21:01 125 H 21 145/67 02/15/21 20:22 125 H 25 H 129/53 02/15/21 20:01 96 H 22 129/53 02/15/21 20:00 120 H 120 H 21 02/15/21 19:30 127 H 28 H 140/53 02/15/21 19:00 106 H 31 H 131/55 02/15/21 18:00 115 H 18 152/70 02/15/21 17:00 123 H 25 H 146/81 02/15/21 16:00 121 H 103 H 17 123/50 02/15/21 15:35 83 18 121/48 02/15/21 15:15 97.5 F L 02/15/21 15:00 97.5 F L 86 17 100/51 02/15/21 14:51 87 19 106/47 02/15/21 14:41 83 18 106/47 02/15/21 14:30 83 18 106/47 02/15/21 14:21 83 18 113/44 02/15/21 14:11 83 18 113/44 02/15/21 14:00 83 18 113/44 02/15/21 13:00 79 18 112/48 02/15/21 12:00 97.7 F 92 H 88 18 110/47 02/15/21 11:01 125 H 18 93/74 02/15/21 10:50 19 Pulse Ox 02/16/21 09:00 100 02/16/21 08:10 02/16/21 08:01 95 02/16/21 08:00 96 07/05/21 07:34 02/16/21 07:01 97 02/16/21 06:00 99 02/16/21 05:00 100 02/16/21 04:44 100 02/16/21 04:00 100 02/16/21 03:00 100 02/16/21 02:05 100 02/16/21 02:01 02/16/21 02:00 02/16/21 01:00 02/16/21 00:00 100 02/15/21 23:01 100 02/15/21 22:31 02/15/21 22:19 02/15/21 22:01 99 02/15/21 21:14 95 02/15/21 21:01 100 02/15/21 20:22 99 02/15/21 20:01 100 02/15/21 20:00 100 02/15/21 19:30 98 02/15/21 19:00 99 02/15/21 18:00 97 02/15/21 17:00 98 02/15/21 16:00 100 02/15/21 15:35 02/15/21 15:15 02/15/21 15:00 99 02/15/21 14:51 02/15/21 14:41 100 02/15/21 14:30 100 02/15/21 14:21 100 02/15/21 14:11 100 02/15/21 14:00 100 02/15/21 13:00 100 02/15/21 12:00 100 02/15/21 11:01 91 02/15/21 10:50 - Physical Examination General: Other (accessory muscle in breathing) HEENT: Positive: EOMI, Normocephaly Neck: Positive: neck supple, trachea midline. Negative: JVD/HJR Cardiac: Positive: Tachycardia Lungs: Positive: Decreased Breath Sounds Neuro: Positive: Grossly Intact Abdomen: Positive: Soft. Negative: Tender Skin: Negative: Rash Musculoskeletal: No Pain Extremities: Present: lower extr. pulses, edema (trace BLE), Other (chronic skin changes noted) - Imaging and Cardiology EKG: report reviewed, image reviewed Echo: report reviewed (Moderate LV dysfunction mild pulmonary hypertension EF 40%), other (2018 - EF 45-50%, trace MR) - Telemetry EKG Rhythm: Sinus Tachycardia Repolarization changes or abnormalities: nonspecific abnormality, ST segment, and/or T wave
[2021-02-16] MEDS: FAMOTIDINE 20 MG TAB PO SCH (12:19)
[2021-02-16] MEDS: MORPHINE 2 MG/1 ML INJ IV PRN ×2 (14:11→20:45)
[2021-02-16 15:46] LABS: Basophils % (Auto) 0.1 % (0.0-1.8); Hematocrit 27.8 % (30.3-42.9); Hemoglobin 9.1 gm/dl (10.1-14.3); Lymphocytes # (Auto) 0.6 K/mm3 (1.2-5.4); Lymphocytes % (Auto) 3.6 % (13.4-35.0); Mean Corpuscular HGB Conc 33 % (30-34); Mean Corpuscular Volume 89 fl (79-97); Monocytes # (Auto) 1.4 K/mm3 (0.0-0.8); Platelet Count 295 K/mm3 (140-440); Red Blood Count 3.11 M/mm3 (3.65-5.03); Red Cell Distribution Width 15.9 % (13.2-15.2)
[2021-02-16 16:10] LABS: Calcium 9.2 mg/dL (8.4-10.2)
--- NOTE | 2021-02-16 16:48 | Progress Note ---
Assessment and Plan Assessment and plan: This is a 62-year-old female with COPD, CHF, HTN, GERD, breast cancer, arthritis HLD, type 2 diabetes mellitus admitted s/p cardiac arrest with acute exacerbation of congestive heart failure, acute hypoxic respiratory failure, sepsis, acute kidney injury and electrolyte imbalances Neuro Acute metabolic encephalopathy -Fall/aspiration precautions -Reorientation as needed -02/12 CT head shows no acute intracranial abnormality Anxiety -Xanax prn S/p GLF, per patient in early January -PT/OT consult CV S/p cardiac arrest -02/13 echocardiogram shows left ventricular function moderate to severely decreased, LVEF 20 to 25%, right ventricle systolic function normal, mitral valve annular calcification, thickened and calcified leaflets, mild to moderate mitral valve regurgitation, RVSP 11 mmHg, trace TR, large left pleural effusion with no pericardial effusion -Cardiology consulted, appreciate recommendations CHF -Cardiology consulted -Per cardiology 03/2018 echocardiogram showed ejection fraction of 45 to 50%, trace MR, trace TR -02/13 echocardiogram shows left ventricular function moderate to severely decreased, LVEF 20 to 25%, right ventricle systolic function normal, mitral valve annular calcification, thickened and calcified leaflets, mild to moderate mitral valve regurgitation, RVSP 11 mmHg, trace TR, large left pleural effusion with no pericardial effusion -IV lasix 40 mg twice daily milrinone per cardiology S/p hypotension -Off Levophed -Blood pressure monitoring per protocol Hypertension -Patient has a history of hypertension -Resume home antihypertenisive medication and titrate as needed Elevated troponin -Cardiology consulted -s/p cardiac arrest -Trend trop -Maybe NSTEMI type II Hyperlipidemia -Resume home statin Respiratory Acute respiratory failure -S/p mechanical ventilation s/p self extuabtion, Currently on BiPAP -Pulmonary hygiene -SPO2 monitor per protocol Bilateral pleural effusions -evidenced on cxr -s/p lasix in ED -lasix IV, sprinolactone PO -Consider thoracentesis if no improvement in respiratory status and response to Lasix FEN/GI Hyperkalemia, resolved -K 5.2 -Kayexalate -Trend potassium Acute kidney injury, improving -Presented with a BUN/creatinine of 1.7/20, 02/13 BUN/creatinine 2.2/29 -Strict urine output -Avoid nephrotoxic medications -Renally dose medications -Daily weights -Nephrology consult if continues to increase Elevated troponin -02/12 troponin 0 0.058, 0.056, 0.069 -Patient received ACLS after PEA arrest -Cardiology consulted, appreciate recommendations Acute exacerbation of CHF -Unknown EF -Presented with a BMP of [id number] -Cardiology consulted, appreciate recommendations On BiPAP Lactic acidosis, resolved -Presented with a lactic acid of 4.5, 02/13 lactic acid 0.8 NAD -strict I&O -asencio ID Sepsis -abx therapy -Presented with hypoxia, tachycardia, hypotension, -BC x2 pending -Tracheal aspirate pending Leukocytosis -ABX therapy -Trend CBC h/o Breast CA Endo DM -SSI, long acting insulin (titrate as needed) -Hbg A1C -Acccuchecks -Hypoglycemic protocol -CC consistent carbohydrate Skin Bilateral lower extremity skin lacerations -WOCN consulted -Wound care per nursing The high probability of a clinically significant, sudden or life threatening deterioration of the [cardio/respiratory] system(s) required my full and direct attention, intervention and personal management. The aggregate critical care time was [35] minutes. This time is in addition to time spent performing reported procedures but includes the following: [x] Data Review and interpretation [x] Patient assessment and monitoring of vital signs [x] Documentation [x] Medication orders and managementdiet DVT/GI prophylaxis: PPI, SCDs to bilateral ultrasound in bed, heparin subcu Disposition: Continue care in IMCU, low threshold for reintubation. Lines: CVL, asencio History Interval history: This is a 62-year-old female with COPD, CHF, HTN, GERD, breast cancer, arthritis HLD, type 2 diabetes mellitus who presented to the emergency department on 02/12 with complaints of severe shortness of breath and upon presentation patient assistance duration was 70% despite being on BiPAP and was electively intubated. After intubation patient had cardiac arrest with PEA and ACLS was initiated for approximately 5 minutes with achievement of ROSC. Patient later self extubated and was placed back on BiPAP. Work-up in the emergency department revealed leukocytosis, lactic acidosis, and CXR showed bilateral pleural effusions with pulmonary edema, elevated proBNP, elevated troponins. Patient wa s admitted to the hospital service s/p cardiac arrest, acute hypoxic respiratory failure, acute exacerbation of CHF and sepsis with consults to cardiology and CCM. 02/13: Patient weaned to high flow nasal cannula, echocardiogram pending, Levophed titrated off, COVID-19 PCR negative 02/14: Patient was transferred to stepdown status, per cardiology patient received IV Lasix to help with pleural effusion seen on echocardiogram. Echocardiogram read with ejection fraction of 20 to 25%. Patient was started on Xanax to help with anxiety. Long-acting insulin increased due to persistent hyperglycemia 02/15: Patient placed back on BiPAP, started to have respiratory decompensation. Spoke with cardiology and pulmonology, will start milrinone, continue Lasix, low threshold for reintubation. 7/milrinone drip is running, continue 5: Patient seen and examined with at the bedside, patient continues to be very agitated, given sedation, low threshold for reintubation. Diuresis with Lasix. Hospitalist Physical - Physical exam Narrative exam: General appearance: Obese, no acute distress, well-nourished EENT: PERRL, EOM intact, hearing intact, clear oral mucosa Respiratory: BiPAP, bilateral rales and minimal wheezes Cardiovascular: Regular rate/rhythm, Normal S1 & S2. No gallop, rub Extremities: no ischemia, No edema, normal temperature, normal color Abdominal: soft, no tenderness, non-distended, normal bowel sounds Integumentary: Lower extremity eschars and wounds Neurologic: Lethargic but arousable - Constitutional Vitals: Temp Pulse Resp BP Pulse Ox 100.0 F H 115 H 23 148/58 97 02/16/21 15:51 02/16/21 14:00 02/16/21 14:00 02/16/21 14:26 02/16/21 14:00 HEART Score - HEART Score EKG: Non-specific Age: > 65 Risk factors: 1-2 risk factors Troponin: Troponin T 0.051 ng/mL (0.00-0.029) H D 02/13/21 18:00 Troponin: < normal limit - Critical Actions Critical Actions: 4-6 pts:12-16.6% risk of adverse cardiac event. Should be admi tted Results - Labs CBC & Chem 7: 02/16/21 14:45 02/16/21 14:45 Labs: Laboratory Last Values WBC 15.4 K/mm3 (4.5-11.0) H 02/16/21 14:45 RBC 3.11 M/mm3 (3.65-5.03) L 02/16/21 14:45 Hgb 9.1 gm/dl (10.1-14.3) L 02/16/21 14:45 Hct 27.8 % (30.3-42.9) L 02/16/21 14:45 MCV 89 fl (79-97) 02/16/21 14:45 MCH 29 pg (28-32) 02/16/21 14:45 MCHC 33 % (30-34) 02/16/21 14:45 RDW 15.9 % (13.2-15.2) H 02/16/21 14:45 Plt Count 295 K/mm3 (140-440) 02/16/21 14:45 Lymph % (Auto) 3.6 % (13.4-35.0) L 02/16/21 14:45 [place] % (Auto) 9.0 % (0.0-7.3) H 02/16/21 14:45 Eos % (Auto) 0.0 % (0.0-4.3) 02/16/21 14:45 Baso % (Auto) 0.1 % (0.0-1.8) 02/16/21 14:45 Lymph # (Auto) 0.6 K/mm3 (1.2-5.4) L 02/16/21 14:45 [place] # (Auto) 1.4 K/mm3 (0.0-0.8) H 02/16/21 14:45 Eos # (Auto) 0.0 K/mm3 (0.0-0.4) 02/16/21 14:45 Baso # (Auto) 0.0 K/mm3 (0.0-0.1) 02/16/21 14:45 Add Manual Diff Complete 02/13/21 Unknown Total Counted 100 02/13/21 Unknown Seg Neutrophils % 87.3 % (40.0-70.0) H 02/16/21 14:45 Seg Neuts % (Manual) 98.0 % (40.0-70.0) H 02/13/21 Unknown Band Neutrophils % 2.0 % 02/13/21 Unknown Lymphocytes % (Manual) 0.5 % (13.4-35.0) L 02/12/21 14:25 Monocytes % (Manual) 6.0 % (0.0-7.3) 02/12/21 14:25 Basophils % (Manual) 0.5 % (0.0-1.8) 02/12/21 14:25 Metamyelocytes % 1.0 % 02/12/21 14:25 Myelocytes % 0.5 % 02/12/21 14:25 Nucleated RBC % Not Reportable 02/13/21 Unknown Seg Neutrophils # 13.4 K/mm3 (1.8-7.7) H 02/16/21 14:45 Seg Neutrophils # Man 24.3 K/mm3 (1.8-7.7) H 02/13/21 Unknown Band Neutrophils # 0.5 K/mm3 02/13/21 Unknown Lymphocytes # (Manual) 0.0 K/mm3 (1.2-5.4) L 02/13/21 Unknown Abs React Lymphs (Man) 0.0 K/mm3 02/13/21 Unknown Monocytes # (Manual) 0.0 K/mm3 (0.0-0.8) 02/13/21 Unknown Eosinophils # (Manual) 0.0 K/mm3 (0.0-0.4) 02/13/21 Unknown Basophils # (Manual) 0.0 K/mm3 (0.0-0.1) 02/13/21 Unknown Metamyelocytes # 0.0 K/mm3 02/13/21 Unknown Myelocytes # 0.0 K/mm3 02/13/21 Unknown Promyelocytes # 0.0 K/mm3 02/13/21 Unknown Blast Cells # 0.0 K/mm3 02/13/21 Unknown WBC Morphology Not Reportable 02/13/21 Unknown Hypersegmented Neuts Not Reportable 02/13/21 Unknown Hyposegmented Neuts Not Reportable 02/13/21 Unknown Hypogranular Neuts Not Reportable 02/13/21 Unknown Smudge Cells Not Reportable 02/13/21 Unknown Toxic Granulation Not Reportable 02/13/21 Unknown Toxic Vacuolation Not Reportable 02/13/21 Unknown Dohle Bodies Not Reportable 02/13/21 Unknown Pelger-Huet Anomaly Not Reportable 02/13/21 Unknown Dawn Rods Not Reportable 02/13/21 Unknown Platelet Estimate Consistent w auto 02/13/21 Unknown Clumped Platelets Not Reportable 02/13/21 Unknown Plt Clumps, EDTA Not Reportable 02/13/21 Unknown Large Platelets Not Reportable 02/13/21 Unknown Giant Platelets Not Reportable 02/13/21 Unknown Platelet Satelliting Not Reportable 02/13/21 Unknown Plt Morphology Comment Not Reportable 02/13/21 Unknown RBC Morphology Not Reportable 02/13/21 Unknown Dimorphic RBCs Not Reportable 02/13/21 Unknown Polychromasia Not Reportable 02/13/21 Unknown Hypochromasia Not Reportable 02/13/21 Unknown Poikilocytosis Not Reportable 02/13/21 Unknown Anisocytosis Not Reportable 02/13/21 Unknown Microcytosis Not Reportable 02/13/21 Unknown Macrocytosis Not Reportable 02/13/21 Unknown Spherocytes Not Reportable 02/13/21 Unknown Pappenheimer Bodies Not Reportable 02/13/21 Unknown Sickle Cells Not Reportable 02/13/21 Unknown Target Cells Not Reportable 02/13/21 Unknown Tear Drop Cells Not Reportable 02/13/21 Unknown Ovalocytes Few 02/13/21 Unknown Helmet Cells Not Reportable 02/13/21 Unknown Phipps-Crompond Bodies Not Reportable 02/13/21 Unknown Coffey Rings Not Reportable 02/13/21 Unknown Mora Cells Not Reportable 02/13/21 Unknown Bite Cells Not Reportable 02/13/21 Unknown Crenated Cell Not Reportable 02/13/21 Unknown Elliptocytes Not Reportable 02/13/21 Unknown Acanthocytes (Spur) Not Reportable 02/13/21 Unknown Rouleaux Not Reportable 02/13/21 Unknown Hemoglobin C Crystals Not Reportable 02/13/21 Unknown Schistocytes Not Reportable 02/13/21 Unknown Malaria parasites Not Reportable 02/13/21 Unknown Mayo Bodies Not Reportable 02/13/21 Unknown Hem Pathologist Commnt No 02/13/21 Unknown PT 13.8 Sec. (12.2-14.9) 02/12/21 12:20 INR 1.01 (0.87-1.13) 02/12/21 12:20 APTT 22.9 Sec. (24.2-36.6) L 02/12/21 12:20 ABG pH 7.272 (7.320-7.450) L 02/15/21 09:09 POC ABG pCO2 53.9 mmHg (32.0-48.0) H 02/15/21 09:09 POC ABG pO2 78.7 mmHg (83-108) L 02/15/21 09:09 POC ABG HCO3 24.3 02/15/21 09:09 ABG O2 Saturation 95.0 (0-100) 02/15/21 09:09 POC ABG Base Excess -2.7 02/15/21 09:09 ABG Hemoglobin 8.8 (12.0-17.5) L 02/15/21 09:09 ABG Oxyhemoglobin 93.0 (94-98) L 02/15/21 09:09 ABG Methemoglobin 0.3 (0.0-1.5) 02/15/21 09:09 ABG Sodium 140.6 mmol/L (136.0-145.0) 02/15/21 09:09 ABG Potassium 4.4 mmol/L (3.40-4.50) 02/15/21 09:09 ABG Chloride 106.0 mmol/L (98-107) 02/15/21 09:09 ABG Glucose 197 mg/dL (65-95) H 02/15/21 09:09 ABG Lactate 2.74 (0.18-30.0) 02/12/21 16:56 Carboxyhemoglobin 1.8 (0.5-1.5) H 02/15/21 09:09 FiO2 % 95 02/15/21 09:09 Sodium 145 mmol/L (137-145) 02/16/21 14:45 Potassium 4.3 mmol/L (3.6-5.0) 02/16/21 14:45 Chloride 105.3 mmol/L (98-107) 02/16/21 14:45 Carbon Dioxide 23 mmol/L (22-30) D 02/16/21 14:45 Anion Gap 21 mmol/L 02/16/21 14:45 BUN 53 mg/dL (7-17) H 02/16/21 14:45 Creatinine 2.5 mg/dL (0.6-1.2) H 02/16/21 14:45 Estimated GFR 19 ml/min 02/16/21 14:45 BUN/Creatinine Ratio 21 % 02/16/21 14:45 Glucose 201 mg/dL (65-100) H 02/16/21 14:45 POC Glucose 180 mg/dL (70-105) H 02/16/21 16:29 Hemoglobin A1c 7.0 % (4-6) H 02/13/21 Unknown Lactic Acid 0.80 mmol/L (0.7-2.0) 02/13/21 Unknown Calcium 9.2 mg/dL (8.4-10.2) 02/16/21 14:45 Magnesium 2.20 mg/dL (1.7-2.3) 02/14/21 07:49 Total Bilirubin 0.30 mg/dL (0.1-1.2) 02/13/21 Unknown Direct Bilirubin 0.3 mg/dL (0-0.2) H 02/12/21 12:20 Indirect Bilirubin 0.3 mg/dL 02/12/21 12:20 AST 31 units/L (5-40) 02/13/21 Unknown ALT 18 units/L (7-56) 02/13/21 Unknown Alkaline Phosphatase 55 units/L (35-129) 02/13/21 Unknown Ammonia 39.0 umol/L (25-60) 02/12/21 12:20 Troponin T 0.051 ng/mL (0.00-0.029) H D 02/13/21 18:00 NT-Pro-B Natriuret Pep 6717 pg/mL (0-900) H 02/12/21 12:20 Total Protein 6.4 g/dL (6.3-8.2) 02/13/21 Unknown Albumin 3.1 g/dL (3.9-5) L 02/13/21 Unknown Albumin/Globulin Ratio 0.9 % 02/13/21 Unknown Triglycerides 94 mg/dL (2-149) 02/12/21 12:20 Cholesterol 99 mg/dL (50-199) 02/12/21 12:20 LDL Cholesterol Direct 40 mg/dL (50-130) L 02/12/21 12:20 HDL Cholesterol 42 mg/dL (40-59) 02/12/21 12:20 Cholesterol/HDL Ratio 2.35 % 02/12/21 12:20 Arterial Blood Glucose 197 mg/dL (65-95) H 02/15/21 09:09 Arterial Blood Ionized Calcium 4.7 mg/dL (4.6-5.3) 02/15/21 09:09 Urine Color Vikki (Yellow) 02/12/21 Unknown Urine Turbidity Cloudy (Clear) 02/12/21 Unknown Urine pH 5.0 (5.0-7.0) 02/12/21 Unknown Ur Specific [place] 1.017 (1.003-1.030) 02/12/21 Unknown Urine Protein >500 mg/dL (Negative) 02/12/21 Unknown Urine Glucose (UA) >=500 mg/dL (Negative) 02/12/21 Unknown Urine Ketones Neg mg/dL (Negative) 02/12/21 Unknown Urine Blood Neg (Negative) 02/12/21 Unknown Urine Nitrite Neg (Negative) 02/12/21 Unknown Urine Bilirubin Neg (Negative) 02/12/21 Unknown Urine Urobilinogen < 2.0 mg/dL (<2.0) 02/12/21 Unknown Ur Leukocyte Esterase Neg (Negative) 02/12/21 Unknown Urine WBC (Auto) 42.0 /HPF (0.0-6.0) H 02/12/21 Unknown Urine RBC (Auto) 2.0 /HPF (0.0-6.0) 02/12/21 Unknown U Epithel Cells (Auto) 5.0 /HPF (0-13.0) 02/12/21 Unknown Hyaline Casts 5 /LPF 02/12/21 Unknown Granular Casts 5 /LPF 02/12/21 Unknown Urine Mucus 1+ /HPF 02/12/21 Unknown Coronavirus (PCR) Negative (Negative) 02/12/21 09:17 Blood Type A POSITIVE 02/15/21 11:30 Antibody Screen Negative 02/15/21 11:30 Crossmatch See Detail 02/15/21 11:30 Microbiology: Microbiology 02/12/21 11:45 Peripheral/Venous Blood Culture - Preliminary NO GROWTH AFTER 4 DAYS 02/12/21 11:40 Peripheral/Venous Blood Culture - Preliminary NO GROWTH AFTER 4 DAYS Asencio/IV: Voiding Method Indwelling Catheter Active Medications - Current Medications Current Medications: Generic Name Dose Route Start Last Admin Trade Name Freq PRN Reason Stop Dose Admin Acetaminophen 650 mg 02/12/21 20:45 Acetaminophen 325 Mg Tab PO Q4H PRN Pain MILD(1-3)/Fever >100.5/CHAMBERS Albuterol 2.5 mg 02/13/21 09:54 Albuterol 2.5 Mg/3 Ml Nebu IH Q4HRT PRN Wheezing Alprazolam 0.5 mg 02/14/21 10:42 02/16/21 09:59 Alprazolam 0.5 Mg Tab PO 0.5 mg TID PRN Administration Anxiety Arformoterol Tartrate 15 mcg 02/13/21 20:00 02/16/21 07:58 Arformoterol 15 Mcg/2 Ml Nebu IH 15 mcg Q12HRT AV Administration Atorvastatin Calcium 40 mg 02/12/21 22:00 02/15/21 22:30 Atorvastatin 40 Mg Tab PO 40 mg QHS AV Administration Budesonide 0.5 mg 02/13/21 20:00 02/16/21 07:58 Budesonide 0.5 Mg/2 Ml Nebu IH 0.5 mg Q12HRT AV Administration Dextrose 50 ml 02/13/21 11:30 Dextrose 50% In Water (25gm) 50 Ml Syringe IV Q30MIN PRN Hypoglycemia Protocol Famotidine 20 mg 02/14/21 10:00 02/16/21 12:19 Famotidine 20 Mg Tab PO Not Given DAILY AV Furosemide 40 mg 02/14/21 09:00 02/16/21 05:49 Furosemide 40 Mg/4 Ml Inj IV 40 mg 0600,1800 AV Administration Heparin Sodium (Porcine) 5,000 unit 02/12/21 22:00 02/16/21 09:10 Heparin 5,000 Unit/1 Ml Vial SUB-Q 5,000 unit Q12HR AV Administration Hydralazine HCl 10 mg 02/12/21 20:49 Hydralazine 20 Mg/1 Ml Inj IV Q3H PRN SBP >/=160; DBP >/=100 Hydromorphone HCl 0.5 mg 02/12/21 20:45 02/15/21 10:20 Hydromorphone 1 Mg/1 Ml Inj IV 0.5 mg Q3H PRN Administration Pain , Severe (7-10) Hydrophilic Ointment 1 applic 02/12/21 10:49 Lip Therapy Vaseline TP Q2HR PRN Dry Lips Azithromycin 500 mg in 250 mls @ 250 mls/hr 02/12/21 21:00 02/15/21 22:25 Zithromax/Ns IV 02/16/21 21:59 250 mls/hr Q24H AV Administration Ceftriaxone Sodium 2 gm in 100 mls @ 200 mls/hr 02/12/21 21:00 02/15/21 22:20 Rocephin/Ns 2 Gm/100 Ml IV 02/16/21 21:29 200 mls/hr Q24H AV Administration Protocol Insulin Glargine 10 units 02/15/21 08:00 02/16/21 09:10 Insulin Glargine 100 Units/Ml SUB-Q 10 units QAMDIAB AV Administration Insulin Human Lispro 0 unit 02/13/21 11:30 02/16/21 09:04 Insulin Lispro 100 Unit/Ml SUB-Q 2 unit ACHS AV Administration Protocol Metoclopramide HCl 5 mg 02/12/21 20:56 Metoclopramide 10 Mg/2 Ml Inj IV Q6H PRN Nausea And Vomiting Metoprolol Tartrate 50 mg 02/14/21 07:53 02/16/21 10:13 Metoprolol Tartrate 25 Mg Tab PO Not Given BID AV Morphine Sulfate 2 mg 02/12/21 20:45 02/16/21 14:11 Morphine 2 Mg/1 Ml Inj IV 2 mg Q4H PRN Administration Pain, Moderate (4-6) Multi-Ingred Cream/Lotion/Oil/Oint 1 applic 02/12/21 10:49 Mineral Oil/Petrolatum, White Ophth Oint 3.5 Gm OU Q4HR PRN Dry Eye(s) Ondansetron HCl 4 mg 02/12/21 20:45 Ondansetron 4 Mg/2 Ml Inj IV Q8H PRN Nausea And Vomiting Oxycodone/Acetaminophen 1 tab 02/12/21 20:45 Oxycodone /Acetaminophen 5-325mg Tab PO Q6H PRN Pain, Moderate (4-6) Phenyleph/Shark Oil/Min Oil/Petrol 1 applic 02/15/21 12:52 Pe/Mo/Pet,Wh 10 Applic/28 Gm Tube AR Q6HR PRN Hemorrhoids Senna/Docusate Sodium 1 tab 02/12/21 22:00 02/16/21 09:11 Sennosides/Docusate Sodium 8.6/50 Mg Tab FEEDTUBE 1 tab BID AV Administration Sodium Chloride 10 ml 02/12/21 22:00 02/16/21 09:11 Sodium Chloride 0.9% 10 Ml Flush Syringe IV 10 ml BID AV Administration Sodium Chloride 10 ml 02/12/21 20:45 Sodium Chloride 0.9% 10 Ml Flush Syringe IV PRN PRN LINE FLUSH Nutrition/Malnutrition Assess - Dietary Evaluation Nutrition/Malnutrition Findings: Nutrition Notes Start: 02/13/21 11:14 Freq: Status: Active Protocol: Document 02/16/21 12:05 MARIANA (Rec: 02/16/21 12:09 MARIANA [id number]) Nutrition Notes Initial or Follow up Reassessment Current Diagnosis COPD,Diabetes,Sepsis, Hypertension,Heart Failure, Respiratory Failure, Hyperlipidemia Other Pertinent Diagnosis COVID PUI Current Diet Consistent CHO Labs/Tests POC BG 186 Pertinent Medications Lasix Height 5 ft 2 in Weight 98.2 kg [place] Body Weight (kg) 50.00 BMI 39.6 Weight Status Morbidly Obese Subjective/Other Information FU for intakes. RN states pt coughing with drinking and is unable to eat due to O2 declining. Recommend [employer] eval. Burn Absent Trauma Absent Current % PO Negligible Minimum of two criteria No Fluid Accumulation Mild (non-severe) #1 Nutrition Diagnosis Inadequate oral intake Comments: changed Etiology ARF As Evidenced by Signs and Symptoms Pt unable to consume PO without coughing or O2 declining Diagnosis Progress(for reassessment Continues documentation) Is patient on ventilator? No Is Patient Ambulatory and/or Out of Bed No REE-([place]-confined to bed) 1757.748 Kcal/Kg value to use for calculation 15 Approximate Energy Requirements Using 1473 kcal/Kg Calculation Used for Recommendations Kcal/kg Additional Notes Protein: (1-1.2g/kg AdjBW: 74. 1kg) 74-89g Fluid: 1 ml/kcal or per MD Nutrition Intervention Change Diet Order: Continue as tolerated Goal #1 Meet at least 75% of protein and energy needs via PO Follow-Up By: 02/18/21 Additional Comments FU for plan of care, intakes
[2021-02-16] MEDS: cefTRIAXone/NS 2 GM/100 ML 2 GM/100 ML BAG IV SCH (20:59)
[2021-02-16] MEDS: AZITHROMYCIN/NS 500 MG/250 ML 500 MG/250 ML BAG IV SCH (21:02)
[2021-02-17] MEDS: INSULIN LISPRO 100 UNIT/ML SUB-Q SCH ×5 (00:45→22:00)
--- NOTE | 2021-02-17 01:51 | Progress Note ---
Assessment and Plan Imp: 1. Acute/chronic systolic CHF 2. Dilated CMP 3. Acute respiratory failure, hypoxia 4. ANGELA 5. Obesity 6. Pleural effusion Rec: 1. Cont. Milrinone; consider increasing diuretics 2. s/p 5 days of Rocephin/Azithromycin 3. Support with BIPAP alternating with HFNC as tolerated 4. DVT PPx 5. Further plans pending clinical course; prognosis guarded to poor CCt 31 minutes Plan of care reviewed with at bedside, he understands/agrees Subjective Date of service: 02/16/21 Principal diagnosis: sob Interval history: No events. Confused, agitated at times on BIPAP. Unable to provide history. Active Medications Acetaminophen (Acetaminophen 325 Mg Tab) 650 mg PO Q4H PRN PRN Reason: Pain MILD(1-3)/Fever >100.5/CHAMBERS Albuterol (Albuterol 2.5 Mg/3 Ml Nebu) 2.5 mg IH Q4HRT PRN PRN Reason: Wheezing Alprazolam (Alprazolam 0.5 Mg Tab) 0.5 mg PO TID PRN PRN Reason: Anxiety Last Admin: 02/16/21 09:59 Dose: 0.5 mg Documented by: Arformoterol Tartrate (Arformoterol 15 Mcg/2 Ml Nebu) 15 mcg IH Q12HRT [facility] Last Admin: 02/16/21 21:26 Dose: 15 mcg Documented by: Atorvastatin Calcium (Atorvastatin 40 Mg Tab) 40 mg PO QHS [facility] Last Admin: 02/16/21 21:03 Dose: 40 mg Documented by: Budesonide (Budesonide 0.5 Mg/2 Ml Nebu) 0.5 mg IH Q12HRT [facility] Last Admin: 02/16/21 21:25 Dose: 0.5 mg Documented by: Dextrose (Dextrose 50% In Water (25gm) 50 Ml Syringe) 50 ml IV Q30MIN PRN; Protocol PRN Reason: Hypoglycemia Famotidine (Famotidine 20 Mg Tab) 20 mg PO DAILY [facility] Last Admin: 02/16/21 12:19 Dose: Not Given Documented by: Furosemide (Furosemide 40 Mg/4 Ml Inj) 40 mg IV 0600,1800 [facility] Last Admin: 02/16/21 17:00 Dose: 40 mg Documented by: Heparin Sodium (Porcine) (Heparin 5,000 Unit/1 Ml Vial) 5,000 unit SUB-Q Q12HR [facility] Last Admin: 02/16/21 22:37 Dose: 5,000 unit Documented by: Hydralazine HCl (Hydralazine 20 Mg/1 Ml Inj) 10 mg IV Q3H PRN PRN Reason: SBP >/=160; DBP >/=100 Hydromorphone HCl (Hydromorphone 1 Mg/1 Ml Inj) 0.5 mg IV Q3H PRN PRN Reason: Pain , Severe (7-10) Last Admin: 02/15/21 10:20 Dose: 0.5 mg Documented by: Hydrophilic Ointment (Lip Therapy Vaseline) 1 applic TP Q2HR PRN PRN Reason: Dry Lips Insulin Glargine (Insulin Glargine 100 Units/Ml) 10 units SUB-Q QAMDIAB [facility] Last Admin: 02/16/21 09:10 Dose: 10 units Documented by: Insulin Human Lispro (Insulin Lispro 100 Unit/Ml) 0 unit SUB-Q [facility]; Protocol Last Admin: 02/17/21 00:45 Dose: 2 unit Documented by: Metoclopramide HCl (Metoclopramide 10 Mg/2 Ml Inj) 5 mg IV Q6H PRN PRN Reason: Nausea And Vomiting Metoprolol Tartrate (Metoprolol Tartrate 25 Mg Tab) 50 mg PO BID [facility] Last Admin: 02/16/21 21:03 Dose: 50 mg Documented by: Morphine Sulfate (Morphine 2 Mg/1 Ml Inj) 2 mg IV Q4H PRN PRN Reason: Pain, Moderate (4-6) Last Admin: 02/16/21 20:45 Dose: 2 mg Documented by: Multi-Ingred Cream/Lotion/Oil/Oint (Mineral Oil/Petrolatum, White Ophth Oint 3.5 Gm) 1 applic OU Q4HR PRN PRN Reason: Dry Eye(s) Ondansetron HCl (Ondansetron 4 Mg/2 Ml Inj) 4 mg IV Q8H PRN PRN Reason: Nausea And Vomiting Oxycodone/Acetaminophen (Oxycodone /Acetaminophen 5-325mg Tab) 1 tab PO Q6H PRN PRN Reason: Pain, Moderate (4-6) Phenyleph/Shark Oil/Min Oil/Petrol (Pe/Mo/Pet,Wh 10 Applic/28 Gm Tube) 1 applic [place] Q6HR PRN PRN Reason: Hemorrhoids Senna/Docusate Sodium (Sennosides/Docusate Sodium 8.6/50 Mg Tab) 1 tab FEEDTUBE BID [facility] Last Admin: 02/16/21 21:03 Dose: 1 tab Documented by: Sodium Chloride (Sodium Chloride 0.9% 10 Ml Flush Syringe) 10 ml IV BID [facility] Last Admin: 02/16/21 21:04 Dose: 10 ml Documented by: Sodium Chloride (Sodium Chloride 0.9% 10 Ml Flush Syringe) 10 ml IV PRN PRN PRN Reason: LINE FLUSH Objective Vital Signs - 12hr 02/16/21 02/16/21 02/16/21 14:00 14:26 15:00 Temperature Pulse Rate 115 H 116 H Pulse Rate [ Anterior Bilateral Throughout] Pulse Rate [ From Monitor] Respiratory 23 22 Rate Respiratory Rate [Anterior Bilateral Throughout] Blood Pressure 179/70 148/58 145/63 O2 Sat by Pulse 97 97 Oximetry 02/16/21 02/16/21 02/16/21 15:51 16:00 16:50 Temperature 100.0 F H Pulse Rate 104 H 99 H Pulse Rate [ Anterior Bilateral Throughout] Pulse Rate [ From Monitor] Respiratory 20 18 Rate Respiratory Rate [Anterior Bilateral Throughout] Blood Pressure 108/44 112/45 O2 Sat by Pulse 97 98 Oximetry 02/16/21 02/16/21 02/16/21 17:00 18:00 18:31 Temperature Pulse Rate 101 H 98 H 99 H Pulse Rate [ Anterior Bilateral Throughout] Pulse Rate [ From Monitor] Respiratory 17 19 20 Rate Respiratory Rate [Anterior Bilateral Throughout] Blood Pressure 120/47 123/48 118/53 O2 Sat by Pulse 98 96 96 Oximetry 02/16/21 02/16/21 02/16/21 19:00 20:00 20:01 Temperature 99.1 F Pulse Rate 100 H 120 H 139 H Pulse Rate [ Anterior Bilateral Throughout] Pulse Rate [ 120 H From Monitor] Respiratory 20 24 33 H Rate Respiratory Rate [Anterior Bilateral Throughout] Blood Pressure 130/56 144/57 O2 Sat by Pulse 95 92 88 Oximetry 02/16/21 02/16/21 02/16/21 20:45 21:00 21:03 Temperature Pulse Rate 131 H 133 H Pulse Rate [ Anterior Bilateral Throughout] Pulse Rate [ From Monitor] Respiratory 31 H 28 H Rate Respiratory Rate [Anterior Bilateral Throughout] Blood Pressure 128/52 128/52 O2 Sat by Pulse 90 Oximetry 02/16/21 02/16/21 02/16/21 21:22 21:24 22:01 Temperature Pulse Rate 120 H 118 H Pulse Rate [ 121 H Anterior Bilateral Throughout] Pulse Rate [ From Monitor] Respiratory 30 H 22 Rate Respiratory 32 H Rate [Anterior Bilateral Throughout] Blood Pressure 128/52 126/76 O2 Sat by Pulse 92 Oximetry 02/16/21 02/16/21 02/17/21 23:00 23:42 00:00 Temperature 97.8 F Pulse Rate 121 H 140 H Pulse Rate [ Anterior Bilateral Throughout] Pulse Rate [ 136 H From Monitor] Respiratory 31 H 27 H Rate Respiratory Rate [Anterior Bilateral Throughout] Blood Pressure 132/61 158/63 O2 Sat by Pulse 87 90 Oximetry 02/17/21 01:00 Temperature Pulse Rate 119 H Pulse Rate [ Anterior Bilateral Throughout] Pulse Rate [ From Monitor] Respiratory 27 H Rate Respiratory Rate [Anterior Bilateral Throughout] Blood Pressure 106/47 O2 Sat by Pulse 96 Oximetry Constitutional: other (critically ill on BIPAP) Eyes: non-icteric ENT: oropharynx moist Neck: supple Effort: mildly labored Ascultation: Bilateral: diminished breath sounds Cardiovascular: other (tachy, RR; no mrg) Gastrointestinal: normoactive bowel sounds, soft, non-tender, non-distended Integumentary: normal Extremities: no cyanosis, no edema, pink and warm Neurologic: normal mental status, non-focal exam Psychiatric: mood appropriate, affect normal CBC and BMP: 02/16/21 14:45 02/16/21 14:45 ABG, PT/INR, D-dimer: ABG ABG pH 7.272 (7.320-7.450) L 02/15/21 09:09 POC ABG pCO2 53.9 mmHg (32.0-48.0) H 02/15/21 09:09 POC ABG pO2 78.7 mmHg (83-108) L 02/15/21 09:09 POC ABG HCO3 24.3 02/15/21 09:09 ABG O2 Saturation 95.0 (0-100) 02/15/21 09:09 PT/INR, D-dimer PT 13.8 Sec. (12.2-14.9) 02/12/21 12:20 INR 1.01 (0.87-1.13) 02/12/21 12:20 Abnormal lab findings: Abnormal Labs 02/12/21 02/12/21 02/12/21 10:45 11:59 12:20 WBC RBC Hgb Hct MCHC RDW Plt Count Lymph % (Auto) [place] % (Auto) Lymph # (Auto) [place] # (Auto) Seg Neutrophils % Seg Neuts % (Manual) Lymphocytes % (Manual) Seg Neutrophils # Seg Neutrophils # Man Lymphocytes # (Manual) Monocytes # (Manual) Basophils # (Manual) APTT ABG pH 7.265 L POC ABG pCO2 49.9 H POC ABG pO2 168.3 H ABG Hemoglobin 10.1 L ABG Oxyhemoglobin 98.5 H ABG Potassium ABG Glucose 330 H Carboxyhemoglobin 0.3 L Potassium Chloride Carbon Dioxide BUN Creatinine Glucose POC Glucose 291 H Hemoglobin A1c Lactic Acid Direct Bilirubin Troponin T 0.058 H NT-Pro-B Natriuret Pep Albumin LDL Cholesterol Direct Arterial Blood Glucose 330 H Urine WBC (Auto) Crossmatch 02/12/21 02/12/21 02/12/21 12:20 12:20 12:20 WBC RBC Hgb Hct MCHC RDW Plt Count Lymph % (Auto) [place] % (Auto) Lymph # (Auto) [place] # (Auto) Seg Neutrophils % Seg Neuts % (Manual) Lymphocytes % (Manual) Seg Neutrophils # Seg Neutrophils # Man Lymphocytes # (Manual) Monocytes # (Manual) Basophils # (Manual) APTT 22.9 L ABG pH POC ABG pCO2 POC ABG pO2 ABG Hemoglobin ABG Oxyhemoglobin ABG Potassium ABG Glucose Carboxyhemoglobin Potassium Chloride Carbon Dioxide 21 L BUN 20 H Creatinine 1.7 H Glucose 278 H POC Glucose Hemoglobin A1c Lactic Acid 4.50 H* Direct Bilirubin 0.3 H Troponin T 0.056 H NT-Pro-B Natriuret Pep Albumin 3.4 L LDL Cholesterol Direct 40 L Arterial Blood Glucose Urine WBC (Auto) Crossmatch 02/12/21 02/12/21 02/12/21 12:20 14:25 16:46 WBC 30.4 H RBC 3.34 L Hgb 9.2 L Hct MCHC 29 L RDW 17.0 H Plt Count 458 H Lymph % (Auto) [place] % (Auto) Lymph # (Auto) [place] # (Auto) Seg Neutrophils % Seg Neuts % (Manual) 90.5 H Lymphocytes % (Manual) 0.5 L Seg Neutrophils # Seg Neutrophils # Man 27.5 H Lymphocytes # (Manual) 0.2 L Monocytes # (Manual) 1.8 H Basophils # (Manual) 0.2 H APTT ABG pH POC ABG pCO2 POC ABG pO2 ABG Hemoglobin ABG Oxyhemoglobin ABG Potassium ABG Glucose Carboxyhemoglobin Potassium Chloride Carbon Dioxide BUN Creatinine Glucose POC Glucose Hemoglobin A1c Lactic Acid 4.50 H* Direct Bilirubin Troponin T NT-Pro-B Natriuret Pep 6717 H Albumin LDL Cholesterol Direct Arterial Blood Glucose Urine WBC (Auto) Crossmatch 02/12/21 02/12/21 02/12/21 16:56 20:35 Unknown WBC RBC Hgb Hct MCHC RDW Plt Count Lymph % (Auto) [place] % (Auto) Lymph # (Auto) [place] # (Auto) Seg Neutrophils % Seg Neuts % (Manual) Lymphocytes % (Manual) Seg Neutrophils # Seg Neutrophils # Man Lymphocytes # (Manual) Monocytes # (Manual) Basophils # (Manual) APTT ABG pH 7.275 L POC ABG pCO2 POC ABG pO2 185.8 H ABG Hemoglobin 9.5 L ABG Oxyhemoglobin 98.6 H ABG Potassium 4.7 H ABG Glucose 330 H Carboxyhemoglobin 0.3 L Potassium Chloride Carbon Dioxide BUN Creatinine Glucose POC Glucose 307 H Hemoglobin A1c Lactic Acid Direct Bilirubin Troponin T NT-Pro-B Natriuret Pep Albumin LDL Cholesterol Direct Arterial Blood Glucose 330 H Urine WBC (Auto) 42.0 H Crossmatch 02/13/21 02/13/21 02/13/21 00:50 08:09 08:53 WBC RBC Hgb Hct MCHC RDW Plt Count Lymph % (Auto) [place] % (Auto) Lymph # (Auto) [place] # (Auto) Seg Neutrophils % Seg Neuts % (Manual) Lymphocytes % (Manual) Seg Neutrophils # Seg Neutrophils # Man Lymphocytes # (Manual) Monocytes # (Manual) Basophils # (Manual) APTT ABG pH POC ABG pCO2 POC ABG pO2 110.6 H ABG Hemoglobin 9.1 L ABG Oxyhemoglobin ABG Potassium 5.0 H ABG Glucose 338 H Carboxyhemoglobin 0.1 L Potassium Chloride Carbon Dioxide BUN Creatinine Glucose POC Glucose 278 H 289 H Hemoglobin A1c Lactic Acid Direct Bilirubin Troponin T NT-Pro-B Natriuret Pep Albumin LDL Cholesterol Direct Arterial Blood Glucose 338 H Urine WBC (Auto) Crossmatch 02/13/21 02/13/21 02/13/21 10:32 12:19 16:53 WBC RBC Hgb Hct MCHC RDW Plt Count Lymph % (Auto) [place] % (Auto) Lymph # (Auto) [place] # (Auto) Seg Neutrophils % Seg Neuts % (Manual) Lymphocytes % (Manual) Seg Neutrophils # Seg Neutrophils # Man Lymphocytes # (Manual) Monocytes # (Manual) Basophils # (Manual) APTT ABG pH POC ABG pCO2 POC ABG pO2 ABG Hemoglobin ABG Oxyhemoglobin ABG Potassium ABG Glucose Carboxyhemoglobin Potassium Chloride Carbon Dioxide BUN Creatinine Glucose POC Glucose 295 H 268 H Hemoglobin A1c Lactic Acid Direct Bilirubin Troponin T 0.069 H D NT-Pro-B Natriuret Pep Albumin LDL Cholesterol Direct Arterial Blood Glucose Urine WBC (Auto) Crossmatch 02/13/21 02/13/21 02/13/21 18:00 21:30 Unknown WBC 24.8 H RBC 2.99 L Hgb 8.3 L Hct 26.8 L MCHC RDW 16.4 H Plt Count Lymph % (Auto) [place] % (Auto) Lymph # (Auto) [place] # (Auto) Seg Neutrophils % Seg Neuts % (Manual) 98.0 H Lymphocytes % (Manual) Seg Neutrophils # Seg Neutrophils # Man 24.3 H Lymphocytes # (Manual) 0.0 L Monocytes # (Manual) Basophils # (Manual) APTT ABG pH POC ABG pCO2 POC ABG pO2 ABG Hemoglobin ABG Oxyhemoglobin ABG Potassium ABG Glucose Carboxyhemoglobin Potassium Chloride Carbon Dioxide BUN Creatinine Glucose POC Glucose 258 H Hemoglobin A1c Lactic Acid Direct Bilirubin Troponin T 0.051 H D NT-Pro-B Natriuret Pep Albumin LDL Cholesterol Direct Arterial Blood Glucose Urine WBC (Auto) Crossmatch 02/13/21 02/13/21 02/14/21 Unknown Unknown 07:11 WBC RBC Hgb Hct MCHC RDW Plt Count Lymph % (Auto) [place] % (Auto) Lymph # (Auto) [place] # (Auto) Seg Neutrophils % Seg Neuts % (Manual) Lymphocytes % (Manual) Seg Neutrophils # Seg Neutrophils # Man Lymphocytes # (Manual) Monocytes # (Manual) Basophils # (Manual) APTT ABG pH POC ABG pCO2 POC ABG pO2 ABG Hemoglobin ABG Oxyhemoglobin ABG Potassium ABG Glucose Carboxyhemoglobin Potassium 5.2 H Chloride Carbon Dioxide BUN 29 H Creatinine 2.2 H Glucose 331 H POC Glucose 244 H Hemoglobin A1c 7.0 H Lactic Acid Direct Bilirubin Troponin T NT-Pro-B Natriuret Pep Albumin 3.1 L LDL Cholesterol Direct Arterial Blood Glucose Urine WBC (Auto) Crossmatch 02/14/21 02/14/21 02/14/21 07:49 07:49 11:37 WBC 25.1 H RBC 2.99 L Hgb 8.5 L Hct 26.6 L MCHC RDW 16.3 H Plt Count Lymph % (Auto) [place] % (Auto) Lymph # (Auto) [place] # (Auto) Seg Neutrophils % Seg Neuts % (Manual) Lymphocytes % (Manual) Seg Neutrophils # Seg Neutrophils # Man Lymphocytes # (Manual) Monocytes # (Manual) Basophils # (Manual) APTT ABG pH POC ABG pCO2 POC ABG pO2 ABG Hemoglobin ABG Oxyhemoglobin ABG Potassium ABG Glucose Carboxyhemoglobin Potassium Chloride Carbon Dioxide BUN 39 H Creatinine 2.1 H Glucose 253 H POC Glucose 229 H Hemoglobin A1c Lactic Acid Direct Bilirubin Troponin T NT-Pro-B Natriuret Pep Albumin LDL Cholesterol Direct Arterial Blood Glucose Urine WBC (Auto) Crossmatch 02/14/21 02/14/21 02/15/21 17:04 21:25 05:50 WBC 14.4 H RBC 2.69 L Hgb 7.4 L Hct 24.0 L MCHC RDW 16.3 H Plt Count Lymph % (Auto) [place] % (Auto) Lymph # (Auto) [place] # (Auto) Seg Neutrophils % Seg Neuts % (Manual) Lymphocytes % (Manual) Seg Neutrophils # Seg Neutrophils # Man Lymphocytes # (Manual) Monocytes # (Manual) Basophils # (Manual) APTT ABG pH POC ABG pCO2 POC ABG pO2 ABG Hemoglobin ABG Oxyhemoglobin ABG Potassium ABG Glucose Carboxyhemoglobin Potassium Chloride Carbon Dioxide BUN Creatinine Glucose POC Glucose 141 H 121 H Hemoglobin A1c Lactic Acid Direct Bilirubin Troponin T NT-Pro-B Natriuret Pep Albumin LDL Cholesterol Direct Arterial Blood Glucose Urine WBC (Auto) Crossmatch 02/15/21 02/15/21 02/15/21 05:50 07:35 09:09 WBC RBC Hgb Hct MCHC RDW Plt Count Lymph % (Auto) [place] % (Auto) Lymph # (Auto) [place] # (Auto) Seg Neutrophils % Seg Neuts % (Manual) Lymphocytes % (Manual) Seg Neutrophils # Seg Neutrophils # Man Lymphocytes # (Manual) Monocytes # (Manual) Basophils # (Manual) APTT ABG pH 7.272 L POC ABG pCO2 53.9 H POC ABG pO2 78.7 L ABG Hemoglobin 8.8 L ABG Oxyhemoglobin 93.0 L ABG Potassium ABG Glucose 197 H Carboxyhemoglobin 1.8 H Potassium Chloride 107.1 H Carbon Dioxide BUN 44 H Creatinine 2.3 H Glucose 162 H POC Glucose 182 H Hemoglobin A1c Lactic Acid Direct Bilirubin Troponin T NT-Pro-B Natriuret Pep Albumin LDL Cholesterol Direct Arterial Blood Glucose 197 H Urine WBC (Auto) Crossmatch 02/15/21 02/15/21 02/15/21 11:30 11:40 16:07 WBC RBC Hgb Hct MCHC RDW Plt Count Lymph % (Auto) [place] % (Auto) Lymph # (Auto) [place] # (Auto) Seg Neutrophils % Seg Neuts % (Manual) Lymphocytes % (Manual) Seg Neutrophils # Seg Neutrophils # Man Lymphocytes # (Manual) Monocytes # (Manual) Basophils # (Manual) APTT ABG pH POC ABG pCO2 POC ABG pO2 ABG Hemoglobin ABG Oxyhemoglobin ABG Potassium ABG Glucose Carboxyhemoglobin Potassium Chloride Carbon Dioxide BUN Creatinine Glucose POC Glucose 160 H 142 H Hemoglobin A1c Lactic Acid Direct Bilirubin Troponin T NT-Pro-B Natriuret Pep Albumin LDL Cholesterol Direct Arterial Blood Glucose Urine WBC (Auto) Crossmatch See Detail 02/15/21 02/16/21 02/16/21 21:52 08:09 11:51 WBC RBC Hgb Hct MCHC RDW Plt Count Lymph % (Auto) [place] % (Auto) Lymph # (Auto) [place] # (Auto) Seg Neutrophils % Seg Neuts % (Manual) Lymphocytes % (Manual) Seg Neutrophils # Seg Neutrophils # Man Lymphocytes # (Manual) Monocytes # (Manual) Basophils # (Manual) APTT ABG pH POC ABG pCO2 POC ABG pO2 ABG Hemoglobin ABG Oxyhemoglobin ABG Potassium ABG Glucose Carboxyhemoglobin Potassium Chloride Carbon Dioxide BUN Creatinine Glucose POC Glucose 143 H 167 H 186 H Hemoglobin A1c Lactic Acid Direct Bilirubin Troponin T NT-Pro-B Natriuret Pep Albumin LDL Cholesterol Direct Arterial Blood Glucose Urine WBC (Auto) Crossmatch 02/16/21 02/16/2121 14:45 14:45 16:29 WBC 15.4 H RBC 3.11 L Hgb 9.1 L Hct 27.8 L MCHC RDW 15.9 H Plt Count Lymph % (Auto) 3.6 L [place] % (Auto) 9.0 H Lymph # (Auto) 0.6 L [place] # (Auto) 1.4 H Seg Neutrophils % 87.3 H Seg Neuts % (Manual) Lymphocytes % (Manual) Seg Neutrophils # 13.4 H Seg Neutrophils # Man Lymphocytes # (Manual) Monocytes # (Manual) Basophils # (Manual) APTT ABG pH POC ABG pCO2 POC ABG pO2 ABG Hemoglobin ABG Oxyhemoglobin ABG Potassium ABG Glucose Carboxyhemoglobin Potassium Chloride Carbon Dioxide BUN 53 H Creatinine 2.5 H Glucose 201 H POC Glucose 180 H Hemoglobin A1c Lactic Acid Direct Bilirubin Troponin T NT-Pro-B Natriuret Pep Albumin LDL Cholesterol Direct Arterial Blood Glucose Urine WBC (Auto) Crossmatch 02/16/21 21:33 WBC RBC Hgb Hct MCHC RDW Plt Count Lymph % (Auto) [place] % (Auto) Lymph # (Auto) [place] # (Auto) Seg Neutrophils % Seg Neuts % (Manual) Lymphocytes % (Manual) Seg Neutrophils # Seg Neutrophils # Man Lymphocytes # (Manual) Monocytes # (Manual) Basophils # (Manual) APTT ABG pH POC ABG pCO2 POC ABG pO2 ABG Hemoglobin ABG Oxyhemoglobin ABG Potassium ABG Glucose Carboxyhemoglobin Potassium Chloride Carbon Dioxide BUN Creatinine Glucose POC Glucose 164 H Hemoglobin A1c Lactic Acid Direct Bilirubin Troponin T NT-Pro-B Natriuret Pep Albumin LDL Cholesterol Direct Arterial Blood Glucose Urine WBC (Auto) Crossmatch Chest x-ray: report reviewed, image reviewed
[2021-02-17] MEDS: MORPHINE 2 MG/1 ML INJ IV PRN ×2 (02:21→06:16)
--- NOTE | 2021-02-17 04:32 | XRay Report ---
XR chest 1V ap INDICATION / CLINICAL INFORMATION: CHF. COMPARISON: February 13 2021 FINDINGS: SUPPORT DEVICES: Unchanged. HEART / MEDIASTINUM: Unchanged. LUNGS / PLEURA: Lung parenchyma is not significantly changed with persistent bilateral airspace disea se. No pneumothorax. Unchanged effusions. ADDITIONAL FINDINGS: No significant additional findings. IMPRESSION: 1. Bilateral airspace disease and persistent effusions. Signer Name: Gold Ritchie MD Signed: 02/17/2021 4:28 AM Workstation Name: [id number]
[2021-02-17] MEDS: FUROSEMIDE 40 MG/4 ML INJ IV SCH (05:45)
[2021-02-17 05:59] LABS: Hematocrit 25.7 % (30.3-42.9); Hemoglobin 8.4 gm/dl (10.1-14.3); Mean Corpuscular HGB Conc 33 % (30-34); Mean Corpuscular Volume 88 fl (79-97); Platelet Count 255 K/mm3 (140-440); Red Blood Count 2.91 M/mm3 (3.65-5.03); Red Cell Distribution Width 15.8 % (13.2-15.2)
[2021-02-17 06:25] LABS: Calcium 8.8 mg/dL (8.4-10.2)
[2021-02-17] MEDS ORDERED: LISINOPRIL 5 MG TAB PO SCH (10:00)
--- NOTE | 2021-02-17 10:00 | Progress Note ---
Assessment and Plan 71 y/o female with acute respiratory failure, cardiac arrest with subsequent ROSC and then self-extubation, now weaned to HFNC with bilateral pleural effusions, cardiomegaly and elevated BNP. 02/17/21: Stopped pulmicort and brovana, no history of COPD. Will add precedex today. If HR improves may need to use dobuatmine as opposed to milrione but will defer to cards. If patient does not improve with precedex may need to re- intubate. Attempted to switch as many meds to IV as possible given continuous bipap. Would prefer not to have on that with continuous bipap. CXR this am shows stable pulmonary edema. Guard prognosis. 02/15/21: hopeful inotropes will help with volume removal as well as improve renal function. Hold on intubation right now. Continue to wean FiO2 as tolerated for sats >88%. Very very guarded prognosis. 02/14/21: Agree with diuresis, renal function should improve with this. Will see how she responds to this. If effusions don't lessen, may need thora on Tuesday/Tuesday. Also may need to consider inotropic support if she doesn't respond well to lasix. High risk for Ventricular Arrhythmia. Continue step down monitoring. Hopeful can wean HFNC with fluid removal. Also should accept MAPS of 55-60 as she likely lives in a low flow state. 1. Follow up ECHO 2. Agree with obtaining results/records from [facility] 3. Wean Vasopressors for MAPS>60 and normal mentation. 4. Would hold all antihypertensive and rate control meds until off vasopressor therapy. 5. If able to be weaned off pressors, can likely go to step down unit. WIll continue to monitor and follow Subjective Date of service: 02/17/21 Principal diagnosis: sob Interval history: Had to be bumped up to 100% over the last 24 hours. Anxiety is still very bad along with agitation. Currently in 2 points with valentín. RT tried on HFNC but desatted to the 60's. Milronone appears to not be working. Objective Vital Signs - 12hr 02/16/21 02/16/21 02/16/21 22:01 23:00 23:42 Temperature 97.8 F Pulse Rate 118 H 121 H Pulse Rate [ Anterior Bilateral Throughout] Pulse Rate [ From Monitor] Respiratory 22 31 H Rate Respiratory Rate [Anterior Bilateral Throughout] Blood Pressure 126/76 132/61 O2 Sat by Pulse 92 87 Oximetry 02/17/21 02/17/21 02/17/21 00:00 00:50 01:00 Temperature Pulse Rate 140 H 130 H 119 H Pulse Rate [ Anterior Bilateral Throughout] Pulse Rate [ 136 H From Monitor] Respiratory 27 H 30 H 27 H Rate Respiratory Rate [Anterior Bilateral Throughout] Blood Pressure 158/63 128/57 106/47 O2 Sat by Pulse 90 95 96 Oximetry 02/17/21 02/17/21 02/17/21 02:00 03:01 04:00 Temperature 97.8 F Pulse Rate 133 H 132 H 125 H Pulse Rate [ Anterior Bilateral Throughout] Pulse Rate [ From Monitor] Respiratory 38 H 32 H 27 H Rate Respiratory Rate [Anterior Bilateral Throughout] Blood Pressure 147/77 147/69 125/56 O2 Sat by Pulse 94 90 90 Oximetry 02/17/21 02/17/21 02/17/21 04:42 05:00 06:01 Temperature Pulse Rate 89 86 136 H Pulse Rate [ Anterior Bilateral Throughout] Pulse Rate [ From Monitor] Respiratory 27 H 41 H 35 H Rate Respiratory Rate [Anterior Bilateral Throughout] Blood Pressure 104/40 109/42 135/67 O2 Sat by Pulse 99 98 84 Oximetry 02/17/21 02/17/21 02/17/21 06:16 07:01 07:55 Temperature Pulse Rate 117 H 119 H Pulse Rate [ Anterior Bilateral Throughout] Pulse Rate [ From Monitor] Respiratory 33 H 31 H 22 Rate Respiratory Rate [Anterior Bilateral Throughout] Blood Pressure 171/72 161/67 O2 Sat by Pulse 87 98 Oximetry 02/17/21 02/17/21 02/17/21 08:00 09:01 09:20 Temperature Pulse Rate 119 H 115 H Pulse Rate [ 98 H Anterior Bilateral Throughout] Pulse Rate [ From Monitor] Respiratory 19 22 Rate Respiratory 22 Rate [Anterior Bilateral Throughout] Blood Pressure 99/53 135/58 O2 Sat by Pulse 98 100 Oximetry Constitutional: other (critically ill on BIPAP) Eyes: non-icteric ENT: oropharynx moist Neck: supple Effort: mildly labored Ascultation: Bilateral: diminished breath sounds Cardiovascular: other (tachy, RR; no mrg) Gastrointestinal: normoactive bowel sounds, soft, non-tender, non-distended Integumentary: normal Extremities: no cyanosis, no edema, pink and warm Neurologic: normal mental status, non-focal exam Psychiatric: mood appropriate, affect normal CBC and BMP: 02/17/21 05:38 02/17/21 05:38 ABG, PT/INR, D-dimer: ABG ABG pH 7.272 (7.320-7.450) L 02/15/21 09:09 POC ABG pCO2 53.9 mmHg (32.0-48.0) H 02/15/21 09:09 POC ABG pO2 78.7 mmHg (83-108) L 02/15/21 09:09 POC ABG HCO3 24.3 02/15/21 09:09 ABG O2 Saturation 95.0 (0-100) 02/15/21 09:09 PT/INR, D-dimer PT 13.8 Sec. (12.2-14.9) 02/12/21 12:20 INR 1.01 (0.87-1.13) 02/12/21 12:20 Abnormal lab findings: Abnormal Labs 02/12/21 02/12/21 02/12/21 10:45 11:59 12:20 WBC RBC Hgb Hct MCHC RDW Plt Count Lymph % (Auto) Vance % (Auto) Lymph # (Auto) Vance # (Auto) Seg Neutrophils % Seg Neuts % (Manual) Lymphocytes % (Manual) Seg Neutrophils # Seg Neutrophils # Man Lymphocytes # (Manual) Monocytes # (Manual) Basophils # (Manual) APTT ABG pH 7.265 L POC ABG pCO2 49.9 H POC ABG pO2 168.3 H ABG Hemoglobin 10.1 L ABG Oxyhemoglobin 98.5 H ABG Potassium ABG Glucose 330 H Carboxyhemoglobin 0.3 L Sodium Potassium Chloride Carbon Dioxide BUN Creatinine Glucose POC Glucose 291 H Hemoglobin A1c Lactic Acid Direct Bilirubin Troponin T 0.058 H NT-Pro-B Natriuret Pep Albumin LDL Cholesterol Direct Arterial Blood Glucose 330 H Urine WBC (Auto) Crossmatch 02/12/21 02/12/21 02/12/21 12:20 12:20 12:20 WBC RBC Hgb Hct MCHC RDW Plt Count Lymph % (Auto) Vance % (Auto) Lymph # (Auto) Vance # (Auto) Seg Neutrophils % Seg Neuts % (Manual) Lymphocytes % (Manual) Seg Neutrophils # Seg Neutrophils # Man Lymphocytes # (Manual) Monocytes # (Manual) Basophils # (Manual) APTT 22.9 L ABG pH POC ABG pCO2 POC ABG pO2 ABG Hemoglobin ABG Oxyhemoglobin ABG Potassium ABG Glucose Carboxyhemoglobin Sodium Potassium Chloride Carbon Dioxide 21 L BUN 20 H Creatinine 1.7 H Glucose 278 H POC Glucose Hemoglobin A1c Lactic Acid 4.50 H* Direct Bilirubin 0.3 H Troponin T 0.056 H NT-Pro-B Natriuret Pep Albumin 3.4 L LDL Cholesterol Direct 40 L Arterial Blood Glucose Urine WBC (Auto) Crossmatch 02/12/21 02/12/21 02/12/21 12:20 14:25 16:46 WBC 30.4 H RBC 3.34 L Hgb 9.2 L Hct MCHC 29 L RDW 17.0 H Plt Count 458 H Lymph % (Auto) Vance % (Auto) Lymph # (Auto) Vance # (Auto) Seg Neutrophils % Seg Neuts % (Manual) 90.5 H Lymphocytes % (Manual) 0.5 L Seg Neutrophils # Seg Neutrophils # Man 27.5 H Lymphocytes # (Manual) 0.2 L Monocytes # (Manual) 1.8 H Basophils # (Manual) 0.2 H APTT ABG pH POC ABG pCO2 POC ABG pO2 ABG Hemoglobin ABG Oxyhemoglobin ABG Potassium ABG Glucose Carboxyhemoglobin Sodium Potassium Chloride Carbon Dioxide BUN Creatinine Glucose POC Glucose Hemoglobin A1c Lactic Acid 4.50 H* Direct Bilirubin Troponin T NT-Pro-B Natriuret Pep 6717 H Albumin LDL Cholesterol Direct Arterial Blood Glucose Urine WBC (Auto) Crossmatch 02/12/21 02/12/21 02/12/21 16:56 20:35 Unknown WBC RBC Hgb Hct MCHC RDW Plt Count Lymph % (Auto) Vance % (Auto) Lymph # (Auto) Vance # (Auto) Seg Neutrophils % Seg Neuts % (Manual) Lymphocytes % (Manual) Seg Neutrophils # Seg Neutrophils # Man Lymphocytes # (Manual) Monocytes # (Manual) Basophils # (Manual) APTT ABG pH 7.275 L POC ABG pCO2 POC ABG pO2 185.8 H ABG Hemoglobin 9.5 L ABG Oxyhemoglobin 98.6 H ABG Potassium 4.7 H ABG Glucose 330 H Carboxyhemoglobin 0.3 L Sodium Potassium Chloride Carbon Dioxide BUN Creatinine Glucose POC Glucose 307 H Hemoglobin A1c Lactic Acid Direct Bilirubin Troponin T NT-Pro-B Natriuret Pep Albumin LDL Cholesterol Direct Arterial Blood Glucose 330 H Urine WBC (Auto) 42.0 H Crossmatch 02/13/21 02/13/21 02/13/21 00:50 08:09 08:53 WBC RBC Hgb Hct MCHC RDW Plt Count Lymph % (Auto) Vance % (Auto) Lymph # (Auto) Vance # (Auto) Seg Neutrophils % Seg Neuts % (Manual) Lymphocytes % (Manual) Seg Neutrophils # Seg Neutrophils # Man Lymphocytes # (Manual) Monocytes # (Manual) Basophils # (Manual) APTT ABG pH POC ABG pCO2 POC ABG pO2 110.6 H ABG Hemoglobin 9.1 L ABG Oxyhemoglobin ABG Potassium 5.0 H ABG Glucose 338 H Carboxyhemoglobin 0.1 L Sodium Potassium Chloride Carbon Dioxide BUN Creatinine Glucose POC Glucose 278 H 289 H Hemoglobin A1c Lactic Acid Direct Bilirubin Troponin T NT-Pro-B Natriuret Pep Albumin LDL Cholesterol Direct Arterial Blood Glucose 338 H Urine WBC (Auto) Crossmatch 02/13/21 02/13/21 02/13/21 10:32 12:19 16:53 WBC RBC Hgb Hct MCHC RDW Plt Count Lymph % (Auto) Vance % (Auto) Lymph # (Auto) Vance # (Auto) Seg Neutrophils % Seg Neuts % (Manual) Lymphocytes % (Manual) Seg Neutrophils # Seg Neutrophils # Man Lymphocytes # (Manual) Monocytes # (Manual) Basophils # (Manual) APTT ABG pH POC ABG pCO2 POC ABG pO2 ABG Hemoglobin ABG Oxyhemoglobin ABG Potassium ABG Glucose Carboxyhemoglobin Sodium Potassium Chloride Carbon Dioxide BUN Creatinine Glucose POC Glucose 295 H 268 H Hemoglobin A1c Lactic Acid Direct Bilirubin Troponin T 0.069 H D NT-Pro-B Natriuret Pep Albumin LDL Cholesterol Direct Arterial Blood Glucose Urine WBC (Auto) Crossmatch 02/13/21 02/13/21 02/13/21 18:00 21:30 Unknown WBC 24.8 H RBC 2.99 L Hgb 8.3 L Hct 26.8 L MCHC RDW 16.4 H Plt Count Lymph % (Auto) Vance % (Auto) Lymph # (Auto) Vance # (Auto) Seg Neutrophils % Seg Neuts % (Manual) 98.0 H Lymphocytes % (Manual) Seg Neutrophils # Seg Neutrophils # Man 24.3 H Lymphocytes # (Manual) 0.0 L Monocytes # (Manual) Basophils # (Manual) APTT ABG pH POC ABG pCO2 POC ABG pO2 ABG Hemoglobin ABG Oxyhemoglobin ABG Potassium ABG Glucose Carboxyhemoglobin Sodium Potassium Chloride Carbon Dioxide BUN Creatinine Glucose POC Glucose 258 H Hemoglobin A1c Lactic Acid Direct Bilirubin Troponin T 0.051 H D NT-Pro-B Natriuret Pep Albumin LDL Cholesterol Direct Arterial Blood Glucose Urine WBC (Auto) Crossmatch 02/13/21 02/13/21 02/14/21 Unknown Unknown 07:11 WBC RBC Hgb Hct MCHC RDW Plt Count Lymph % (Auto) Vance % (Auto) Lymph # (Auto) Vance # (Auto) Seg Neutrophils % Seg Neuts % (Manual) Lymphocytes % (Manual) Seg Neutrophils # Seg Neutrophils # Man Lymphocytes # (Manual) Monocytes # (Manual) Basophils # (Manual) APTT ABG pH POC ABG pCO2 POC ABG pO2 ABG Hemoglobin ABG Oxyhemoglobin ABG Potassium ABG Glucose Carboxyhemoglobin Sodium Potassium 5.2 H Chloride Carbon Dioxide BUN 29 H Creatinine 2.2 H Glucose 331 H POC Glucose 244 H Hemoglobin A1c 7.0 H Lactic Acid Direct Bilirubin Troponin T NT-Pro-B Natriuret Pep Albumin 3.1 L LDL Cholesterol Direct Arterial Blood Glucose Urine WBC (Auto) Crossmatch 02/14/21 02/14/21 02/14/21 07:49 07:49 11:37 WBC 25.1 H RBC 2.99 L Hgb 8.5 L Hct 26.6 L MCHC RDW 16.3 H Plt Count Lymph % (Auto) Vance % (Auto) Lymph # (Auto) Vance # (Auto) Seg Neutrophils % Seg Neuts % (Manual) Lymphocytes % (Manual) Seg Neutrophils # Seg Neutrophils # Man Lymphocytes # (Manual) Monocytes # (Manual) Basophils # (Manual) APTT ABG pH POC ABG pCO2 POC ABG pO2 ABG Hemoglobin ABG Oxyhemoglobin ABG Potassium ABG Glucose Carboxyhemoglobin Sodium Potassium Chloride Carbon Dioxide BUN 39 H Creatinine 2.1 H Glucose 253 H POC Glucose 229 H Hemoglobin A1c Lactic Acid Direct Bilirubin Troponin T NT-Pro-B Natriuret Pep Albumin LDL Cholesterol Direct Arterial Blood Glucose Urine WBC (Auto) Crossmatch 02/14/21 02/14/21 02/15/21 17:04 21:25 05:50 WBC 14.4 H RBC 2.69 L Hgb 7.4 L Hct 24.0 L MCHC RDW 16.3 H Plt Count Lymph % (Auto) Vance % (Auto) Lymph # (Auto) Vance # (Auto) Seg Neutrophils % Seg Neuts % (Manual) Lymphocytes % (Manual) Seg Neutrophils # Seg Neutrophils # Man Lymphocytes # (Manual) Monocytes # (Manual) Basophils # (Manual) APTT ABG pH POC ABG pCO2 POC ABG pO2 ABG Hemoglobin ABG Oxyhemoglobin ABG Potassium ABG Glucose Carboxyhemoglobin Sodium Potassium Chloride Carbon Dioxide BUN Creatinine Glucose POC Glucose 141 H 121 H Hemoglobin A1c Lactic Acid Direct Bilirubin Troponin T NT-Pro-B Natriuret Pep Albumin LDL Cholesterol Direct Arterial Blood Glucose Urine WBC (Auto) Crossmatch 02/15/21 02/15/21 02/15/21 05:50 07:35 09:09 WBC RBC Hgb Hct MCHC RDW Plt Count Lymph % (Auto) Vance % (Auto) Lymph # (Auto) Vance # (Auto) Seg Neutrophils % Seg Neuts % (Manual) Lymphocytes % (Manual) Seg Neutrophils # Seg Neutrophils # Man Lymphocytes # (Manual) Monocytes # (Manual) Basophils # (Manual) APTT ABG pH 7.272 L POC ABG pCO2 53.9 H POC ABG pO2 78.7 L ABG Hemoglobin 8.8 L ABG Oxyhemoglobin 93.0 L ABG Potassium ABG Glucose 197 H Carboxyhemoglobin 1.8 H Sodium Potassium Chloride 107.1 H Carbon Dioxide BUN 44 H Creatinine 2.3 H Glucose 162 H POC Glucose 182 H Hemoglobin A1c Lactic Acid Direct Bilirubin Troponin T NT-Pro-B Natriuret Pep Albumin LDL Cholesterol Direct Arterial Blood Glucose 197 H Urine WBC (Auto) Crossmatch 02/15/21 02/15/21 02/15/21 11:30 11:40 16:07 WBC RBC Hgb Hct MCHC RDW Plt Count Lymph % (Auto) Vance % (Auto) Lymph # (Auto) Vance # (Auto) Seg Neutrophils % Seg Neuts % (Manual) Lymphocytes % (Manual) Seg Neutrophils # Seg Neutrophils # Man Lymphocytes # (Manual) Monocytes # (Manual) Basophils # (Manual) APTT ABG pH POC ABG pCO2 POC ABG pO2 ABG Hemoglobin ABG Oxyhemoglobin ABG Potassium ABG Glucose Carboxyhemoglobin Sodium Potassium Chloride Carbon Dioxide BUN Creatinine Glucose POC Glucose 160 H 142 H Hemoglobin A1c Lactic Acid Direct Bilirubin Troponin T NT-Pro-B Natriuret Pep Albumin LDL Cholesterol Direct Arterial Blood Glucose Urine WBC (Auto) Crossmatch See Detail 02/15/21 02/16/21 02/16/21 21:52 08:09 11:51 WBC RBC Hgb Hct MCHC RDW Plt Count Lymph % (Auto) Vance % (Auto) Lymph # (Auto) Vance # (Auto) Seg Neutrophils % Seg Neuts % (Manual) Lymphocytes % (Manual) Seg Neutrophils # Seg Neutrophils # Man Lymphocytes # (Manual) Monocytes # (Manual) Basophils # (Manual) APTT ABG pH POC ABG pCO2 POC ABG pO2 ABG Hemoglobin ABG Oxyhemoglobin ABG Potassium ABG Glucose Carboxyhemoglobin Sodium Potassium Chloride Carbon Dioxide BUN Creatinine Glucose POC Glucose 143 H 167 H 186 H Hemoglobin A1c Lactic Acid Direct Bilirubin Troponin T NT-Pro-B Natriuret Pep Albumin LDL Cholesterol Direct Arterial Blood Glucose Urine WBC (Auto) Crossmatch 02/16/21 02/16/21 02/16/21 14:45 14:45 16:29 WBC 15.4 H RBC 3.11 L Hgb 9.1 L Hct 27.8 L MCHC RDW 15.9 H Plt Count Lymph % (Auto) 3.6 L Vance % (Auto) 9.0 H Lymph # (Auto) 0.6 L Vance # (Auto) 1.4 H Seg Neutrophils % 87.3 H Seg Neuts % (Manual) Lymphocytes % (Manual) Seg Neutrophils # 13.4 H Seg Neutrophils # Man Lymphocytes # (Manual) Monocytes # (Manual) Basophils # (Manual) APTT ABG pH POC ABG pCO2 POC ABG pO2 ABG Hemoglobin ABG Oxyhemoglobin ABG Potassium ABG Glucose Carboxyhemoglobin Sodium Potassium Chloride Carbon Dioxide BUN 53 H Creatinine 2.5 H Glucose 201 H POC Glucose 180 H Hemoglobin A1c Lactic Acid Direct Bilirubin Troponin T NT-Pro-B Natriuret Pep Albumin LDL Cholesterol Direct Arterial Blood Glucose Urine WBC (Auto) Crossmatch 02/16/21 02/17/21 02/17/21 21:33 05:38 05:38 WBC 13.4 H RBC 2.91 L Hgb 8.4 L Hct 25.7 L MCHC RDW 15.8 H Plt Count Lymph % (Auto) Vance % (Auto) Lymph # (Auto) Vance # (Auto) Seg Neutrophils % Seg Neuts % (Manual) Lymphocytes % (Manual) Seg Neutrophils # Seg Neutrophils # Man Lymphocytes # (Manual) Monocytes # (Manual) Basophils # (Manual) APTT ABG pH POC ABG pCO2 POC ABG pO2 ABG Hemoglobin ABG Oxyhemoglobin ABG Potassium ABG Glucose Carboxyhemoglobin Sodium 146 H Potassium Chloride 108.3 H Carbon Dioxide BUN 55 H Creatinine 2.5 H Glucose 169 H POC Glucose 164 H Hemoglobin A1c Lactic Acid Direct Bilirubin Troponin T NT-Pro-B Natriuret Pep Albumin LDL Cholesterol Direct Arterial Blood Glucose Urine WBC (Auto) Crossmatch 02/17/21 07:28 WBC RBC Hgb Hct MCHC RDW Plt Count Lymph % (Auto) Vance % (Auto) Lymph # (Auto) Vance # (Auto) Seg Neutrophils % Seg Neuts % (Manual) Lymphocytes % (Manual) Seg Neutrophils # Seg Neutrophils # Man Lymphocytes # (Manual) Monocytes # (Manual) Basophils # (Manual) APTT ABG pH POC ABG pCO2 POC ABG pO2 ABG Hemoglobin ABG Oxyhemoglobin ABG Potassium ABG Glucose Carboxyhemoglobin Sodium Potassium Chloride Carbon Dioxide BUN Creatinine Glucose POC Glucose 142 H Hemoglobin A1c Lactic Acid Direct Bilirubin Troponin T NT-Pro-B Natriuret Pep Albumin LDL Cholesterol Direct Arterial Blood Glucose Urine WBC (Auto) Crossmatch
--- NOTE | 2021-02-17 11:16 | Progress Note ---
Assessment and Plan Acute Respiratory Failure with pulmonary edema * Pulmonary edema is persistent and patient is not diuresing satisfactorily on Lasix. After discussion with pulmonology Lasix is discontinued and will initiate Bumex 1 mg IV twice daily. Continue to monitor I/O's. Repeat BMP in a.m. we will consider augmenting with dobutamine pending clinical course. * Continue CPAP positive pressure support. 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 LV is normal size. LV SF is moderate to severely decreased. Severe global hypokinesis of LV. RV SF is normal. Mild to moderate MR. RVSP is 11 mmHg. * GDMT as tolerated ANGELA * No ACEI/ARB in setting of ANGELA. Avoid nephrotoxic agents Elevated troponin * Troponins are elevated, subacute and nonspecific. Trending downwards. Continue to trend CE's. Anemia * No anticoagulation is setting of severe anemia We will follow. This patient was seen in conjunction with Dr Alejandro who agrees with this assessment and plan of care - Patient Problems (1) Acute renal failure Current Visit: Yes Status: Acute Qualifiers: Acute renal failure type: with acute tubular necrosis Qualified Code(s): N17.0 - Acute kidney failure with tubular necrosis (2) Non-ST elevated myocardial infarction (non-STEMI) Current Visit: Yes Status: Acute (3) Acute exacerbation of CHF (congestive heart failure) Current Visit: Yes Status: Acute Qualifiers: Heart failure type: systolic Qualified Code(s): I50.23 - Acute on chronic systolic (congestive) heart failure (4) Acute heart failure Current Visit: Yes Status: Acute Qualifiers: Heart failure type: systolic Qualified Code(s): I50.21 - Acute systolic (congestive) heart failure (5) Acute respiratory failure with hypoxia Current Visit: Yes Status: Acute (6) Bilateral pleural effusion Current Visit: Yes Status: Acute (7) Sepsis Current Visit: Yes Status: Acute Qualifiers: Severe sepsis shock status: with septic shock (8) HLD (hyperlipidemia) Current Visit: Yes Status: Chronic Qualifiers: Hyperlipidemia type: mixed hyperlipidemia Qualified Code(s): E78.2 - Mixed hyperlipidemia (9) T2DM (type 2 diabetes mellitus) Current Visit: Yes Status: Chronic Qualifiers: Diabetes mellitus half-way insulin use: with half-way use Subjective Date of service: 02/17/21 Principal diagnosis: Pulmonary Edema Interval history: Patient is altered mental status: Unresponsive on CPAP. Telemetry reviewed: Sinus rhythm 93 with frequent PACs. No events Objective Last Vital Signs Temp 97.8 F 02/17/21 04:00 Pulse 98 H 02/17/21 09:20 Resp 22 02/17/21 09:20 BP 135/58 02/17/21 09:01 Pulse Ox 100 02/17/21 09:01 - Physical Examination General: Other (accessory muscle in breathing) HEENT: Positive: EOMI, Normocephaly Neck: Positive: neck supple, trachea midline. Negative: JVD/HJR Cardiac: Positive: Reg Rate and Rhythm, S1/S2 Lungs: Positive: Decreased Breath Sounds, Other (CPAP) Neuro: Positive: Other (AMS) Abdomen: Positive: Soft. Negative: Tender Skin: Negative: Rash Musculoskeletal: No Pain Extremities: Present: lower extr. pulses, edema (trace BLE), Other (chronic skin changes noted) - Labs and Meds CBC 02/16/21 02/17/21 Range/Units 14:45 05:38 WBC 15.4 H 13.4 H (4.5-11.0) K/mm3 RBC 3.11 L 2.91 L (3.65-5.03) M/mm3 Hgb 9.1 L 8.4 L (10.1-14.3) gm/dl Hct 27.8 L 25.7 L (30.3-42.9) % Plt Count 295 255 (140-440) K/mm3 Lymph # (Auto) 0.6 L (1.2-5.4) K/mm3 [place] # (Auto) 1.4 H (0.0-0.8) K/mm3 Eos # (Auto) 0.0 (0.0-0.4) K/mm3 Baso # (Auto) 0.0 (0.0-0.1) K/mm3 Comprehensive Metabolic Panel 02/16/21 02/17/21 Range/Units 14:45 05:38 Sodium 145 146 H (137-145) mmol/L Potassium 4.3 4.3 (3.6-5.0) mmol/L Chloride 105.3 108.3 H (98-107) mmol/L Carbon Dioxide 23 D 26 (22-30) mmol/L BUN 53 H 55 H (7-17) mg/dL Creatinine 2.5 H 2.5 H (0.6-1.2) mg/dL Glucose 201 H 169 H (65-100) mg/dL Calcium 9.2 8.8 (8.4-10.2) mg/dL - Imaging and Cardiology EKG: report reviewed, image reviewed Echo: report reviewed (Moderate LV dysfunction mild pulmonary hypertension EF 40%), other (2018 - EF 45-50%, trace MR) - Telemetry EKG Rhythm: Sinus Rhythm - EKG Sinus rhythms and dysrhythmias: sinus rhythm Repolarization changes or abnormalities: nonspecific abnormality, ST segment, and/or T wave
[2021-02-17] MEDS: SENNOSIDES/DOCUSATE SODIUM 8.6/50 MG TAB FEEDTUBE SCH ×3 (11:35→21:53)
[2021-02-17] MEDS: INSULIN GLARGINE 100 UNITS/ML SUB-Q SCH (11:36)
[2021-02-17] MEDS: ASPIRIN 81 MG TAB CHEW PO SCH (11:36)
[2021-02-17] MEDS: METOPROLOL TARTRATE 5 MG/5 ML INJ IV SCH ×2 (11:43→18:49)
[2021-02-17] MEDS: BUMETANIDE 1 MG/4 ML INJ IV SCH ×2 (11:44→18:50)
[2021-02-17] MEDS: HEPARIN 5,000 UNIT/1 ML VIAL SUB-Q SCH ×2 (11:44→21:48)
[2021-02-17] MEDS: FAMOTIDINE 20 MG/2 ML INJ IV SCH (11:44)
--- NOTE | 2021-02-17 13:48 | Progress Note ---
Assessment and Plan This is a 62-year-old female with COPD, CHF, HTN, GERD, breast cancer, arthritis HLD, type 2 diabetes mellitus admitted s/p cardiac arrest with acute exacerbation of congestive heart failure, acute hypoxic respiratory failure, sepsis, acute kidney injury and electrolyte imbalances A/P --Acute metabolic encephalopathy -Fall/aspiration precautions -Reorientation as needed -02/12 CT head shows no acute intracranial abnormality -Likely due to severe hypoxia --S/p cardiac arrest -02/13 echocardiogram shows left ventricular function moderate to severely decreased, LVEF 20 to 25%, right ventricle systolic function normal, mitral valve annular calcification, thickened and calcified leaflets, mild to moderate mitral valve regurgitation, RVSP 11 mmHg, trace TR, large left pleural effusion with no pericardial effusion -Cardiology consulted, appreciate recommendations --Acute on chronic systolic heart failure -Cardiology consulted -Per cardiology 03/2018 echocardiogram showed ejection fraction of 45 to 50%, trace MR, trace TR -02/13 echocardiogram shows left ventricular function moderate to severely decreased, LVEF 20 to 25%, right ventricle systolic function normal, mitral valve annular calcification, thickened and calcified leaflets, mild to moderate mitral valve regurgitation, RVSP 11 mmHg, trace TR, large left pleural effusion with no pericardial effusion -IV lasix 40 mg twice daily milrinone per cardiology -strict I&O -asencio --Cardiogenic shock -Off Levophed -Blood pressure monitoring per protocol --Hypertension -Patient has a history of hypertension -Resume home antihypertenisive medication and titrate as needed --Elevated troponin/NSTEMI type II -Cardiology consulted -Likely due to cardiac arrest and renal failure -Trend trop --Hyperlipidemia -Resume home statin --Bilateral pleural effusions -evidenced on cxr -s/p lasix in ED -lasix IV, sprinolactone PO -Consider thoracentesis if no improvement in respiratory status and response to Lasix --Hyperkalemia, resolved -K 5.2 -Kayexalate -Trend potassium --Acute kidney injury, -Presented with a BUN/creatinine of 1.7/, 02/13 BUN/creatinine 2.2/ -Strict urine output -Avoid nephrotoxic medications -Renally dose medications -Daily weights -Nephrology consult --Lactic acidosis, resolved -Presented with a lactic acid of 4.5, 02/13 lactic acid 0.8 --Sepsis -abx therapy -Presented with hypoxia, tachycardia, hypotension, leukocytosis -BC x2 pending -Tracheal aspirate pending --h/o Breast CA, need outpatient follow-up --DM type II -SSI, long acting insulin (titrate as needed) -Hbg A1C -Acccuchecks -Hypoglycemic protocol -CC consistent carbohydrate --Bilateral lower extremity skin lacerations -WOCN consulted -Wound care per nursing --Anxiety -Xanax prn --DVT prophylaxis, heparin The high probability of a clinically significant, sudden or life threatening deterioration of the [cardio/respiratory] system(s) required my full and direct attention, intervention and personal management. The aggregate critical care time was [35] minutes. This time is in addition to time spent performing reported procedures but includes the following: [x] Data Review and interpretation [x] Patient assessment and monitoring of vital signs [x] Documentation [x] Medication orders and managementdiet DVT/GI prophylaxis: PPI, SCDs to bilateral ultrasound in bed, heparin subcu Disposition: Continue care in IMCU, low threshold for reintubation. Guarded prognosis Lines: CVL, asencio Brief history This is a 62-year-old female with COPD, CHF, HTN, GERD, breast cancer, arthritis HLD, type 2 diabetes mellitus who presented to the emergency department on 02/12 with complaints of severe shortness of breath and upon presentation patient assistance duration was 70% despite being on BiPAP and was electively intubated. After intubation patient had cardiac arrest with PEA and ACLS was initiated for approximately 5 minutes with achievement of ROSC. Patient later self extubated and was placed back on BiPAP. Work-up in the emergency department revealed leukocytosis, lactic acidosis, and CXR showed bilateral pleural effusions with pulmonary edema, elevated proBNP, elevated troponins. Patient was admitted to the hospital service s/p cardiac arrest, acute hypoxic respiratory failure, acute exacerbation of CHF and sepsis with consults to cardiology and [facility]. Daily clinical course: 02/13: Patient weaned to high flow nasal cannula, echocardiogram pending, Levophed titrated off, COVID-19 PCR negative 02/14: Patient was transferred to stepdown status, per cardiology patient received IV Lasix to help with pleural effusion seen on echocardiogram. Echocardiogram read with ejection fraction of 20 to 25%. Patient was started on Xanax to help with anxiety. Long-acting insulin increased due to persistent hyperglycemia 02/15: Patient placed back on BiPAP, started to have respiratory decompensation. Spoke with cardiology and pulmonology, will start milrinone, continue Lasix, low threshold for reintubation. 02/16: milrinone drip is running, continue 5: Patient seen and examined with at the bedside, patient continues to be very agitated, given sedation, low threshold for reintubation. Diuresis with Lasix. 02/17: Patient remains on continuous BiPAP and milrinone drip. She took off her BiPAP mask this morning which was immediately replaced by respiratory therapist. Patient remains lethargic and slightly restless. H&H remained stable, creatinine continue to trend up-consult nephrology, follow BMP. Subjective Date of service: 02/17/21 Principal diagnosis: sob Interval history: Patient seen and examined. Medical records and medication list reviewed. No acute event overnight noted by the RN. Vitals noted Patient remains on continuous BiPAP, restless Discussed plan of care at bedside with patient's RN. Objective - Exam Narrative Exam: GENERAL: Morbidly obese white female lying on bed appeared to be lethargic HEENT: Normocephalic. Atraumatic. No conjunctival congestion or icterus. Patient has moist mucous membranes. NECK: Supple. Trachea midline. CHEST/LUNGS: Clear to auscultated bilaterally, breathing nonlabored. No wheezes crackles or rhonchi. HEART/CARDIOVASCULAR: Regular in rate and rhythm. S1 and S2 positive. ABDOMEN: Abdomen is soft, nontender. Patient has normal bowel sounds. SKIN: There is no rash. Warm and dry. NEURO: Open eyes on verbal command otherwise lethargic MUSCULOSKELETAL: No joint effusion or tenderness. EXTRIMITY: No edema, no cyanosis or clubbing. PSYCH: Lethargic and remains on BiPAP. - Constitutional Vitals: Vital Signs - 12hr 02/17/21 02/17/21 02/17/21 02:00 03:01 04:00 Temperature 97.8 F Pulse Rate 133 H 132 H 125 H Pulse Rate [ Anterior Bilateral Throughout] Respiratory 38 H 32 H 27 H Rate Respiratory Rate [Anterior Bilateral Throughout] Blood Pressure 147/77 147/69 125/56 O2 Sat by Pulse 94 90 90 Oximetry 02/17/21 02/17/21 02/17/21 04:42 05:00 06:01 Temperature Pulse Rate 89 86 136 H Pulse Rate [ Anterior Bilateral Throughout] Respiratory 27 H 41 H 35 H Rate Respiratory Rate [Anterior Bilateral Throughout] Blood Pressure 104/40 109/42 135/67 O2 Sat by Pulse 99 98 84 Oximetry 02/17/21 02/17/21 02/17/21 06:16 07:01 07:55 Temperature Pulse Rate 117 H 119 H Pulse Rate [ Anterior Bilateral Throughout] Respiratory 33 H 31 H 22 Rate Respiratory Rate [Anterior Bilateral Throughout] Blood Pressure 171/72 161/67 O2 Sat by Pulse 87 98 Oximetry 02/17/21 02/17/21 02/17/21 08:00 09:01 09:20 Temperature Pulse Rate 119 H 115 H Pulse Rate [ 98 H Anterior Bilateral Throughout] Respiratory 19 22 Rate Respiratory 22 Rate [Anterior Bilateral Throughout] Blood Pressure 99/53 135/58 O2 Sat by Pulse 98 100 Oximetry 02/17/21 02/17/21 02/17/21 10:01 11:00 11:43 Temperature Pulse Rate 93 H 100 H 119 H Pulse Rate [ Anterior Bilateral Throughout] Respiratory 20 21 Rate Respiratory Rate [Anterior Bilateral Throughout] Blood Pressure 143/117 113/52 139/115 O2 Sat by Pulse 100 97 Oximetry 02/17/21 12:00 Temperature 98.2 F Pulse Rate Pulse Rate [ Anterior Bilateral Throughout] Respiratory Rate Respiratory Rate [Anterior Bilateral Throughout] Blood Pressure O2 Sat by Pulse Oximetry - Labs CBC & Chem 7: 02/17/21 05:38 02/17/21 05:38 Labs: Abnormal lab results 02/16/21 02/16/21 02/16/21 Range/Units 14:45 14:45 16:29 WBC 15.4 H (4.5-11.0) K/mm3 RBC 3.11 L (3.65-5.03) M/mm3 Hgb 9.1 L (10.1-14.3) gm/dl Hct 27.8 L (30.3-42.9) % RDW 15.9 H (13.2-15.2) % Lymph % (Auto) 3.6 L (13.4-35.0) % [place] % (Auto) 9.0 H (0.0-7.3) % Lymph # (Auto) 0.6 L (1.2-5.4) K/mm3 [place] # (Auto) 1.4 H (0.0-0.8) K/mm3 Seg Neutrophils % 87.3 H (40.0-70.0) % Seg Neutrophils # 13.4 H (1.8-7.7) K/mm3 Sodium (137-145) mmol/L Chloride (98-107) mmol/L BUN 53 H (7-17) mg/dL Creatinine 2.5 H (0.6-1.2) mg/dL Glucose 201 H (65-100) mg/dL POC Glucose 180 H (70-105) mg/dL 02/16/21 02/17/21 02/17/21 Range/Units 21:33 05:38 05:38 WBC 13.4 H (4.5-11.0) K/mm3 RBC 2.91 L (3.65-5.03) M/mm3 Hgb 8.4 L (10.1-14.3) gm/dl Hct 25.7 L (30.3-42.9) % RDW 15.8 H (13.2-15.2) % Lymph % (Auto) (13.4-35.0) % [place] % (Auto) (0.0-7.3) % Lymph # (Auto) (1.2-5.4) K/mm3 [place] # (Auto) (0.0-0.8) K/mm3 Seg Neutrophils % (40.0-70.0) % Seg Neutrophils # (1.8-7.7) K/mm3 Sodium 146 H (137-145) mmol/L Chloride 108.3 H (98-107) mmol/L BUN 55 H (7-17) mg/dL Creatinine 2.5 H (0.6-1.2) mg/dL Glucose 169 H (65-100) mg/dL POC Glucose 164 H (70-105) mg/dL 02/17/21 02/17/21 Range/Units 07:28 12:12 WBC (4.5-11.0) K/mm3 RBC (3.65-5.03) M/mm3 Hgb (10.1-14.3) gm/dl Hct (30.3-42.9) % RDW (13.2-15.2) % Lymph % (Auto) (13.4-35.0) % [place] % (Auto) (0.0-7.3) % Lymph # (Auto) (1.2-5.4) K/mm3 [place] # (Auto) (0.0-0.8) K/mm3 Seg Neutrophils % (40.0-70.0) % Seg Neutrophils # (1.8-7.7) K/mm3 Sodium (137-145) mmol/L Chloride (98-107) mmol/L BUN (7-17) mg/dL Creatinine (0.6-1.2) mg/dL Glucose (65-100) mg/dL POC Glucose 142 H 156 H (70-105) mg/dL HEART Score - HEART Score EKG: Non-specific Age: > 65 Risk factors: 1-2 risk factors Troponin: Troponin T 0.051 ng/mL (0.00-0.029) H D 02/13/21 18:00 Troponin: < normal limit - Critical Actions Critical Actions: 4-6 pts:12-16.6% risk of adverse cardiac event. Should be admitted
[2021-02-17] MEDS: ARFORMOTEROL 15 MCG/2 ML NEBU IH SCH (16:07)
[2021-02-17] MEDS: BUDESONIDE 0.5 MG/2 ML NEBU IH SCH (16:09)
--- NOTE | 2021-02-17 16:10 | Consultation ---
History of Present Illness - Reason for Consult Consult date: 02/17/21 acute renal failure, chronic renal failure - History of Present Illness The patient is a 62 female with history significant for HTN, type 2 DM, HLD, COPD, CKD and CHF who presented to [facility] ED 02/12 with c/o severe shortness of breath of one day duration. Her initial oxygen saturation were 70% in spite of being BiPAP. Patient was intubated in the emergency room. Patient then had pulseless electrical activity and ACLS protocol was initiated. ROSC achieved after 2 rounds of Epinephrine, sodium bicarbonate. In the ER patient was very agitated and self extubated. Patient was on BiPAP at the time of my examination. History was obtained from her at the bedside and prior notes. Labs significant for Creat 2.5 abd BUN 55. Nephrology was consulted for further evaluation and treatment of ANGELA. Past History Past Medical History: arthritis, cancer (breast), diabetes, GERD, heart failure, hypertension, hyperlipidemia Past Surgical History: appendectomy, cholecystectomy, Other (Surgical history not a viable). denies: valve replacement, CABG, PTCA Social history: smoking (former). denies: alcohol abuse Family history: hypertension Medications and Allergies Allergies Allergy/AdvReac Type Severity Reaction Status Date / Time Penicillins Allergy Unknown Verified 02/12/21 17:19 contrast Allergy Rash Uncoded 02/14/21 18:30 Home Medications Medication Instructions Recorded Confirmed Last Taken Type AtorvaSTATin [Lipitor] 40 mg PO QHS 02/12/21 02/12/21 Unknown History Metoprolol Succinate [Kapspargo 25 mg PO QDAY 02/12/21 02/12/21 Unknown History Sprinkle] Spironolactone [Aldactone] 25 mg PO QDAY 02/12/21 02/12/21 Unknown History amLODIPine [Norvasc] 5 mg PO DAILY 02/12/21 02/12/21 Unknown History glipiZIDE [Glucotrol] 5 mg PO BID 02/12/21 02/12/21 Unknown History metFORMIN [Glucophage] 500 mg PO BID 02/12/21 02/13/21 Unknown History Aspirin [Adult Aspirin] 1 tab PO QDAY 02/13/21 02/13/21 Unknown History Biotin [Biotin 5,000 rapdis] 5,000 mcg PO 02/13/21 Unknown History NovoLOG Flexpen SC ACHS 02/13/21 Unknown History Active Meds: Active Medications Acetaminophen (Acetaminophen 325 Mg Tab) 650 mg PO Q4H PRN PRN Reason: Pain MILD(1-3)/Fever >100.5/CHAMBERS Albuterol (Albuterol 2.5 Mg/3 Ml Nebu) 2.5 mg IH Q4HRT PRN PRN Reason: Wheezing Last Admin: 02/17/21 09:14 Dose: 2.5 mg Documented by: Alprazolam (Alprazolam 0.5 Mg Tab) 0.5 mg PO TID PRN PRN Reason: Anxiety Last Admin: 02/16/21 09:59 Dose: 0.5 mg Documented by: Aspirin (Aspirin 81 Mg Tab Chew) 81 mg PO QDAY [facility] Last Admin: 02/17/21 11:36 Dose: Not Given Documented by: Atorvastatin Calcium (Atorvastatin 40 Mg Tab) 40 mg PO QHS [facility] Last Admin: 02/16/21 21:03 Dose: 40 mg Documented by: Bumetanide (Bumetanide 1 Mg/4 Ml Inj) 1 mg IV BID@0600,1800 [facility] Last Admin: 02/17/21 11:44 Dose: 1 mg Documented by: Dextrose (Dextrose 50% In Water (25gm) 50 Ml Syringe) 50 ml IV Q30MIN PRN; Protocol PRN Reason: Hypoglycemia Famotidine (Famotidine 20 Mg/2 Ml Inj) 20 mg IV DAILY [facility] Last Admin: 02/17/21 11:44 Dose: 20 mg Documented by: Heparin Sodium (Porcine) (Heparin 5,000 Unit/1 Ml Vial) 5,000 unit SUB-Q Q12HR [facility] Last Admin: 02/17/21 11:44 Dose: 5,000 unit Documented by: Hydralazine HCl (Hydralazine 20 Mg/1 Ml Inj) 10 mg IV Q3H PRN PRN Reason: SBP >/=160; DBP >/=100 Hydromorphone HCl (Hydromorphone 1 Mg/1 Ml Inj) 0.5 mg IV Q3H PRN PRN Reason: Pain , Severe (7-10) Last Admin: 02/15/21 10:20 Dose: 0.5 mg Documented by: Hydrophilic Ointment (Lip Therapy Vaseline) 1 applic TP Q2HR PRN PRN Reason: Dry Lips Dexmedetomidine HCl 400 mcg/ (Sodium Chloride) 104 mls @ 5.106 mls/hr IV TITRATE [facility]; Protocol Last Admin: 02/17/21 11:42 Dose: 0.2 mcg/kg/hr, 5.106 mls/hr Documented by: Insulin Glargine (Insulin Glargine 100 Units/Ml) 10 units SUB-Q QAMDIAB [facility] Last Admin: 02/17/21 11:36 Dose: Not Given Documented by: Insulin Human Lispro (Insulin Lispro 100 Unit/Ml) 0 unit SUB-Q ACHS [facility]; Protocol Last Admin: 02/17/21 15:46 Dose: Not Given Documented by: Metoclopramide HCl (Metoclopramide 10 Mg/2 Ml Inj) 5 mg IV Q6H PRN PRN Reason: Nausea And Vomiting Metoprolol Tartrate (Metoprolol Tartrate 5 Mg/5 Ml Inj) 5 mg IV Q6HR [facility] Last Admin: 02/17/21 11:43 Dose: 5 mg Documented by: Morphine Sulfate (Morphine 2 Mg/1 Ml Inj) 2 mg IV Q4H PRN PRN Reason: Pain, Moderate (4-6) Last Admin: 02/17/21 06:16 Dose: 2 mg Documented by: Multi-Ingred Cream/Lotion/Oil/Oint (Mineral Oil/Petrolatum, White Ophth Oint 3.5 Gm) 1 applic OU Q4HR PRN PRN Reason: Dry Eye(s) Ondansetron HCl (Ondansetron 4 Mg/2 Ml Inj) 4 mg IV Q8H PRN PRN Reason: Nausea And Vomiting Phenyleph/Shark Oil/Min Oil/Petrol (Pe/Mo/Pet,Wh 10 Applic/28 Gm Tube) 1 applic AR Q6HR PRN PRN Reason: Hemorrhoids Senna/Docusate Sodium (Sennosides/Docusate Sodium 8.6/50 Mg Tab) 1 tab FEEDTUBE BID [facility] Last Admin: 02/17/21 11:35 Dose: Not Given Documented by: Sodium Chloride (Sodium Chloride 0.9% 10 Ml Flush Syringe) 10 ml IV BID [facility] Last Admin: 02/17/21 11:44 Dose: 10 ml Documented by: Sodium Chloride (Sodium Chloride 0.9% 10 Ml Flush Syringe) 10 ml IV PRN PRN PRN Reason: LINE FLUSH Review of Systems ROS unobtainable: due to mental status Exam - Vital Signs Vital signs: Vital Signs Pulse Ox 74 L 02/12/21 10:34 Results - Lab Results 02/17/21 05:38 02/17/21 05:38 Most recent lab results ABG pH 7.272 (7.320-7.450) L 02/15/21 09:09 ABG O2 Saturation 95.0 (0-100) 02/15/21 09:09 Calcium 8.8 mg/dL (8.4-10.2) 02/17/21 05:38 Magnesium 2.20 mg/dL (1.7-2.3) 02/14/21 07:49 Assessment and Plan 1. Acute kidney injury: Vasomotor ANGELA superimposed on CKD in the setting of Cardiac arrest/ hypotension. Urine studies and Renal US ordered. Monitor renal function. Creatinine leveled off. Avoid nephrotoxic agents. Meds dosage based on GFR. 2. FEN: Hypernatremia, monitor. Monitor lytes and volume status. 3. S/p cardiac arrest: 02/13 echocardiogram showed LVEF 20 to 25%. Followed by Cardiology. 4. Acute HFeEF: Followed by Cardiology. S/p Milrinone drip. On IV Bumex. 5. Acute respiratory failure: S/p mechanical ventilation s/p self extuabtion. Currently on BiPAP. Followed by Pulmonary. 6. Elevated troponin: S/p cardiac arrest. Maybe NSTEMI type II. Followed by Cards. 7. Acute metabolic encephalopathy: Monitor. 8. Shock: Off Levophed. Monitor Blood pressure. 9. Bilateral pleural effusions: On diuretics. Followed by Spironolactone. 10. Sepsis, POA: Abx therapy. Monitor. 11. H/o Breast CA. 12. DM: SSI, long acting insulin (titrate as needed). Subjective: Patient was seen and examined at the bedside. Examination: General appearance: obese, well-developed, appears stated age, on BIPAP HEENT: ATNC, Pupils equal Neck: trachea midline Respiratory: Coarse breath sounds Heart: regular, S1S2, no murmur Abdomen: soft, normoactive bowel sounds, not tender Integumentary: LE stasis changes noted Neurologic: obtunded Ext: trace LE edema : asencio catheter
[2021-02-18] MEDS: METOPROLOL TARTRATE 5 MG/5 ML INJ IV SCH ×5 (01:30→17:12)
[2021-02-18] MEDS: BUMETANIDE 1 MG/4 ML INJ IV SCH ×2 (05:39→17:25)
[2021-02-18 07:37] LABS: Basophils % (Auto) 0.3 % (0.0-1.8); Eosinophils # (Auto) 0.1 K/mm3 (0.0-0.4); Eosinophils % (Auto) 0.7 % (0.0-4.3); Hemoglobin 8.6 gm/dl (10.1-14.3); Lymphocytes # (Auto) 0.5 K/mm3 (1.2-5.4); Lymphocytes % (Auto) 5.8 % (13.4-35.0); Mean Corpuscular HGB Conc 33 % (30-34); Mean Corpuscular Volume 89 fl (79-97); Monocytes # (Auto) 0.6 K/mm3 (0.0-0.8); Monocytes % (Auto) 6.6 % (0.0-7.3); Platelet Count 235 K/mm3 (140-440); Red Blood Count 2.92 M/mm3 (3.65-5.03); Red Cell Distribution Width 15.8 % (13.2-15.2)
--- NOTE | 2021-02-18 08:10 | Progress Note ---
Assessment and Plan 1. Acute kidney injury: Vasomotor ANGELA superimposed on CKD in the setting of Cardiac arrest/ hypotension. Urine studies and Renal US ordered. Monitor renal function. Creatinine leveled off. Avoid nephrotoxic agents. Meds dosage based on GFR. 2. FEN: Hypernatremia, IV D5W, monitor. Bumex stopped and started on Diuril. Monitor lytes and volume status. 3. S/p cardiac arrest: 02/13 echocardiogram showed LVEF 20 to 25%. Followed by Cardiology. 4. Acute HFeEF: Followed by Cardiology. S/p Milrinone drip. IV diuretics. 5. Acute respiratory failure: S/p mechanical ventilation s/p self extuabtion. Currently on BiPAP. Followed by Pulmonary. 6. Elevated troponin: S/p cardiac arrest. Maybe NSTEMI type II. Followed by Cards. 7. Acute metabolic encephalopathy: Monitor. 8. Shock: Off Levophed. Monitor Blood pressure. 9. Bilateral pleural effusions: On IV diuretics. 10. Sepsis, POA: Follow culture. Monitor. 11. H/o Breast CA. 12. DM: SSI, long acting insulin (titrate as needed). Subjective: Patient was seen and examined at the bedside. Examination: General appearance: obese, well-developed, appears stated age, on BIPAP HEENT: ATNC, Pupils equal Neck: trachea midline Respiratory: Coarse breath sounds Heart: regular, S1S2, no murmur Abdomen: soft, normoactive bowel sounds, not tender Integumentary: LE stasis changes, superficial ulcers noted Neurologic: stuporous Ext: trace LE edema : asencio catheter Subjective Date of service: 02/18/21 Principal diagnosis: Pulmonary Edema Objective - Vital Signs Vital signs: Vital Signs - 12hr 02/17/21 02/17/21 02/17/21 20:39 21:00 22:00 Temperature Pulse Rate 81 81 77 Respiratory 18 21 20 Rate Blood Pressure 130/51 127/54 137/56 O2 Sat by Pulse 99 98 96 Oximetry 02/17/21 02/17/21 02/18/21 23:00 23:41 00:00 Temperature 98.6 F Pulse Rate 80 79 Respiratory 21 21 Rate Blood Pressure 139/54 144/54 O2 Sat by Pulse 97 97 Oximetry 02/18/21 02/18/21 02/18/21 00:45 01:00 02:00 Temperature Pulse Rate 79 78 77 Respiratory 21 21 22 Rate Blood Pressure 139/54 138/58 140/53 O2 Sat by Pulse 98 96 96 Oximetry 02/18/21 02/18/21 02/18/21 03:00 04:00 04:15 Temperature Pulse Rate 77 56 L 56 L Respiratory 20 22 22 Rate Blood Pressure 143/57 132/48 132/48 O2 Sat by Pulse 97 97 98 Oximetry 02/18/21 02/18/21 02/18/21 05:00 05:39 06:00 Temperature 98.2 F Pulse Rate 75 69 53 L Respiratory 27 H 24 Rate Blood Pressure 125/63 138/62 139/58 O2 Sat by Pulse 91 95 Oximetry 02/18/21 07:00 Temperature Pulse Rate 56 L Respiratory 25 H Rate Blood Pressure 147/50 O2 Sat by Pulse 95 Oximetry - Lab 02/18/21 07:10 02/18/21 07:10 Most recent lab results ABG pH 7.272 (7.320-7.450) L 02/15/21 09:09 ABG O2 Saturation 95.0 (0-100) 02/15/21 09:09 Calcium 8.8 mg/dL (8.4-10.2) 02/17/21 05:38 Magnesium 2.20 mg/dL (1.7-2.3) 02/14/21 07:49 Medications & Allergies - Medications Allergies/Adverse Reactions: Allergies Penicillins Allergy (Verified 02/12/21 17:19) Unknown contrast Allergy (Uncoded 02/14/21 18:30) Rash Home Medications: Home Medications Medication Instructions Recorded Confirmed Last Taken Type AtorvaSTATin [Lipitor] 40 mg PO QHS 02/12/21 02/12/21 Unknown History Metoprolol Succinate [Kapspargo 25 mg PO QDAY 02/12/21 02/12/21 Unknown History Sprinkle] Spironolactone [Aldactone] 25 mg PO QDAY 02/12/21 02/12/21 Unknown History amLODIPine [Norvasc] 5 mg PO DAILY 02/12/21 02/12/21 Unknown History glipiZIDE [Glucotrol] 5 mg PO BID 02/12/21 02/12/21 Unknown History metFORMIN [Glucophage] 500 mg PO BID 02/12/21 02/13/21 Unknown History Aspirin [Adult Aspirin] 1 tab PO QDAY 02/13/21 02/13/21 Unknown History Biotin [Biotin 5,000 rapdis] 5,000 mcg PO 02/13/21 Unknown History NovoLOG Flexpen SC ACHS 02/13/21 Unknown History Active Medications: Generic Name Dose Route Start Last Admin Trade Name Freq PRN Reason Stop Dose Admin Acetaminophen 650 mg 02/12/21 20:45 Acetaminophen 325 Mg Tab PO Q4H PRN Pain MILD(1-3)/Fever >100.5/CHAMBERS Albuterol 2.5 mg 02/13/21 09:54 02/17/21 09:14 Albuterol 2.5 Mg/3 Ml Nebu IH 2.5 mg Q4HRT PRN Administration Wheezing Alprazolam 0.5 mg 02/14/21 10:42 02/16/21 09:59 Alprazolam 0.5 Mg Tab PO 0.5 mg TID PRN Administration Anxiety Aspirin 81 mg 02/17/21 10:00 02/17/21 11:36 Aspirin 81 Mg Tab Chew PO Not Given QDAY AV Atorvastatin Calcium 40 mg 02/12/21 22:00 02/17/21 21:53 Atorvastatin 40 Mg Tab PO Not Given QHS AV Bumetanide 1 mg 02/17/21 11:00 02/18/21 05:39 Bumetanide 1 Mg/4 Ml Inj IV 1 mg BID@0600,1800 AV Administration Dextrose 50 ml 02/13/21 11:30 Dextrose 50% In Water (25gm) 50 Ml Syringe IV Q30MIN PRN Hypoglycemia Protocol Famotidine 20 mg 02/17/21 10:00 02/17/21 11:44 Famotidine 20 Mg/2 Ml Inj IV 20 mg DAILY AV Administration Heparin Sodium (Porcine) 5,000 unit 02/12/21 22:00 02/17/21 21:48 Heparin 5,000 Unit/1 Ml Vial SUB-Q 5,000 unit Q12HR AV Administration Hydralazine HCl 10 mg 02/12/21 20:49 Hydralazine 20 Mg/1 Ml Inj IV Q3H PRN SBP >/=160; DBP >/=100 Hydromorphone HCl 0.5 mg 02/12/21 20:45 02/15/21 10:20 Hydromorphone 1 Mg/1 Ml Inj IV 0.5 mg Q3H PRN Administration Pain , Severe (7-10) Hydrophilic Ointment 1 applic 02/12/21 10:49 Lip Therapy Vaseline TP Q2HR PRN Dry Lips Dexmedetomidine HCl 400 mcg/ 104 mls @ 5.106 mls/hr 02/17/21 10:00 02/18/21 06:06 Sodium Chloride IV 0.4 mcg/kg/hr TITRATE AV 10.213 mls/hr Titration Protocol 0.2 MCG/KG/HR Insulin Glargine 10 units 02/15/21 08:00 02/17/21 11:36 Insulin Glargine 100 Units/Ml SUB-Q Not Given QAMDIAB [facility] Insulin Human Lispro 0 unit 02/13/21 11:30 02/17/21 22:00 Insulin Lispro 100 Unit/Ml SUB-Q Not Given ACHS [facility] Protocol Metoclopramide HCl 5 mg 02/12/21 20:56 Metoclopramide 10 Mg/2 Ml Inj IV Q6H PRN Nausea And Vomiting Metoprolol Tartrate 5 mg 02/17/21 12:00 02/18/21 05:39 Metoprolol Tartrate 5 Mg/5 Ml Inj IV 5 mg Q6HR AV Administration Morphine Sulfate 2 mg 02/12/21 20:45 02/17/21 06:16 Morphine 2 Mg/1 Ml Inj IV 2 mg Q4H PRN Administration Pain, Moderate (4-6) Multi-Ingred Cream/Lotion/Oil/Oint 1 applic 02/12/21 10:49 Mineral Oil/Petrolatum, White Ophth Oint 3.5 Gm OU Q4HR PRN Dry Eye(s) Ondansetron HCl 4 mg 02/12/21 20:45 Ondansetron 4 Mg/2 Ml Inj IV Q8H PRN Nausea And Vomiting Phenyleph/Shark Oil/Min Oil/Petrol 1 applic 02/15/21 12:52 Pe/Mo/Pet,Wh 10 Applic/28 Gm Tube IL Q6HR PRN Hemorrhoids Senna/Docusate Sodium 1 tab 02/12/21 22:00 02/17/21 21:53 Sennosides/Docusate Sodium 8.6/50 Mg Tab FEEDTUBE Not Given BID AV Sodium Chloride 10 ml 02/12/21 22:00 02/17/21 21:49 Sodium Chloride 0.9% 10 Ml Flush Syringe IV 10 ml BID AV Administration Sodium Chloride 10 ml 02/12/21 20:45 Sodium Chloride 0.9% 10 Ml Flush Syringe IV PRN PRN LINE FLUSH
[2021-02-18 08:32] LABS: Calcium 9.1 mg/dL (8.4-10.2)
[2021-02-18] MEDS: ASPIRIN 81 MG TAB CHEW PO SCH (09:49)
[2021-02-18] MEDS: INSULIN GLARGINE 100 UNITS/ML SUB-Q SCH (09:50)
[2021-02-18] MEDS: HEPARIN 5,000 UNIT/1 ML VIAL SUB-Q SCH ×2 (09:50→21:53)
[2021-02-18] MEDS: SENNOSIDES/DOCUSATE SODIUM 8.6/50 MG TAB FEEDTUBE SCH ×2 (09:50→21:54)
[2021-02-18] MEDS: FAMOTIDINE 20 MG/2 ML INJ IV SCH (09:50)
[2021-02-18] MEDS: INSULIN LISPRO 100 UNIT/ML SUB-Q SCH ×4 (09:50→23:57)
[2021-02-18] MEDS ORDERED: ASPIRIN EC 81 MG TAB PO SCH (10:00)
--- NOTE | 2021-02-18 12:38 | Progress Note ---
Assessment and Plan Acute Respiratory Failure with pulmonary edema * Continue CPAP/BiPAP positive pressure support. Management per respiratory * Per respiratory unable to wean off CPAP due to significant desat. Pulmonary edema is persistent with Bumex. Will initiate milrinone to augment cardiac output for 48 hours. Titrate dose to renal function per Milrinone protocol. continue to monitor LAURI's. Repeat BMP in a.m. 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 LV is normal size. LV SF is moderate to severely decreased. Severe global hypokinesis of LV. RV SF is normal. Mild to moderate MR. RVSP is 11 mmHg. * GDMT as tolerated ANGELA * No ACEI/ARB in setting of ANGELA. Avoid nephrotoxic agents Elevated troponin * Troponins are elevated, subacute and nonspecific. Trending downwards. Continue to trend CE's. Anemia * No anticoagulation is setting of severe anemia Patient remains n.p.o. without NG tube. Limiting medications to parenteral routes. We will follow. This patient was seen in conjunction with Dr Alejandro who agrees with this assessment and plan of care - Patient Problems (1) Acute renal failure Current Visit: Yes Status: Acute Qualifiers: Acute renal failure type: with acute tubular necrosis Qualified Code(s): N17.0 - Acute kidney failure with tubular necrosis (2) Non-ST elevated myocardial infarction (non-STEMI) Current Visit: Yes Status: Acute (3) Acute exacerbation of CHF (congestive heart failure) Current Visit: Yes Status: Acute Qualifiers: Heart failure type: systolic Qualified Code(s): I50.23 - Acute on chronic systolic (congestive) heart failure (4) Acute heart failure Current Visit: Yes Status: Acute Qualifiers: Heart failure type: systolic Qualified Code(s): I50.21 - Acute systolic (congestive) heart failure (5) Acute respiratory failure with hypoxia Current Visit: Yes Status: Acute (6) Bilateral pleural effusion Current Visit: Yes Status: Acute (7) Sepsis Current Visit: Yes Status: Acute Qualifiers: Severe sepsis shock status: with septic shock (8) HLD (hyperlipidemia) Current Visit: Yes Status: Chronic Qualifiers: Hyperlipidemia type: mixed hyperlipidemia Qualified Code(s): E78.2 - Mixed hyperlipidemia (9) T2DM (type 2 diabetes mellitus) Current Visit: Yes Status: Chronic Qualifiers: 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 No events Objective Last Vital Signs Temp 98.2 F 02/18/21 05:00 Pulse 58 L 02/18/21 11:00 Resp 22 02/18/21 11:00 BP 143/47 02/18/21 11:00 Pulse Ox 97 02/18/21 11:00 - Physical Examination General: Other (accessory muscle in breathing) HEENT: Positive: EOMI, Normocephaly Neck: Positive: neck supple, trachea midline. Negative: JVD/HJR Cardiac: Positive: irregularly irregular, S1/S2 Lungs: Positive: Decreased Breath Sounds, Oxygen Neuro: Positive: Other (AMS) Abdomen: Positive: Soft. Negative: Tender Skin: Negative: Rash Musculoskeletal: No Pain Extremities: Present: lower extr. pulses, edema (trace BLE), Other (chronic skin changes noted) - Labs and Meds CBC 02/18/21 Range/Units 07:10 WBC 9.2 (4.5-11.0) K/mm3 RBC 2.92 L (3.65-5.03) M/mm3 Hgb 8.6 L (10.1-14.3) gm/dl Hct 26.0 L (30.3-42.9) % Plt Count 235 (140-440) K/mm3 Lymph # (Auto) 0.5 L (1.2-5.4) K/mm3 Scott # (Auto) 0.6 (0.0-0.8) K/mm3 Eos # (Auto) 0.1 (0.0-0.4) K/mm3 Baso # (Auto) 0.0 (0.0-0.1) K/mm3 Comprehensive Metabolic Panel 02/18/21 Range/Units 07:10 Sodium 150 H (137-145) mmol/L Potassium 4.2 (3.6-5.0) mmol/L Chloride 110.3 H (98-107) mmol/L Carbon Dioxide 28 (22-30) mmol/L BUN 63 H (7-17) mg/dL Creatinine 2.5 H (0.6-1.2) mg/dL Glucose 168 H (65-100) mg/dL Calcium 9.1 (8.4-10.2) mg/dL - Imaging and Cardiology EKG: report reviewed, image reviewed Echo: report reviewed (Echocardiogram reviewed (02/14/2021): LVEF is 20 to 25%. LV is normal size. LV SF is moderate to severely decreased. Severe global hypokinesis of LV. RV SF is normal. Mild to moderate MR. RVSP is 11 mmHg.), other (2018 - EF 45-50%, trace MR) - Telemetry EKG Rhythm: Atrial Fibrillation - EKG Sinus rhythms and dysrhythmias: sinus rhythm Repolarization changes or abnormalities: nonspecific abnormality, ST segment, and/or T wave
--- NOTE | 2021-02-18 15:03 | Progress Note ---
Assessment and Plan 71 y/o female with acute respiratory failure, cardiac arrest with subsequent ROSC and then self-extubation, now weaned to HFNC with bilateral pleural effusions, cardiomegaly and elevated BNP. 02/18/21: Continue precedex. Wish that patient could have tolerated inotropic therapy as I feel this would benefit her the most. Will ask cards about it again. need to place patient on D5W at KVO given she is not eating and increases in Na. Wean FiO2 as tolerated. 02/17/21: Stopped pulmicort and brovana, no history of COPD. Will add precedex today. If HR improves may need to use dobuatmine as opposed to milrione but will defer to cards. If patient does not improve with precedex may need to re- intubate. Attempted to switch as many meds to IV as possible given continuous bipap. Would prefer not to have on that with continuous bipap. CXR this am shows stable pulmonary edema. Guard prognosis. 02/15/21: hopeful inotropes will help with volume removal as well as improve renal function. Hold on intubation right now. Continue to wean FiO2 as tolerated for sats >88%. Very very guarded prognosis. 02/14/21: Agree with diuresis, renal function should improve with this. Will see how she responds to this. If effusions don't lessen, may need thora on Tuesday/Tuesday. Also may need to consider inotropic support if she doesn't res pond well to lasix. High risk for Ventricular Arrhythmia. Continue step down monitoring. Hopeful can wean HFNC with fluid removal. Also should accept MAPS of 55-60 as she likely lives in a low flow state. 1. Follow up ECHO 2. Agree with obtaining results/records from [facility] 3. Wean Vasopressors for MAPS>60 and normal mentation. 4. Would hold all antihypertensive and rate control meds until off vasopressor therapy. 5. If able to be weaned off pressors, can likely go to step down unit. WIll continue to monitor and follow Subjective Date of service: 02/18/21 Principal diagnosis: Pulmonary Edema Interval history: Down to 75%, but still on bipap. Cards changed to bumex with better output, stable Cr. but BUN and electrolytes increasing. Objective Vital Signs - 12hr 02/18/21 02/18/21 02/18/21 04:00 04:15 05:00 Temperature 98.2 F Pulse Rate 56 L 56 L 75 Respiratory 22 22 27 H Rate Blood Pressure 132/48 132/48 125/63 O2 Sat by Pulse 97 98 91 Oximetry 02/18/21 02/18/21 02/18/21 05:39 06:00 07:00 Temperature Pulse Rate 69 53 L 56 L Respiratory 24 25 H Rate Blood Pressure 138/62 139/58 147/50 O2 Sat by Pulse 95 95 Oximetry 02/18/21 02/18/21 02/18/21 08:00 09:00 09:07 Temperature Pulse Rate 56 L 75 63 Respiratory 24 27 H 32 H Rate Blood Pressure 149/50 136/70 153/69 O2 Sat by Pulse 95 96 99 Oximetry 02/18/21 02/18/21 02/18/21 10:00 11:00 12:00 Temperature Pulse Rate 59 L 58 L 92 H Respiratory 25 H 22 30 H Rate Blood Pressure 136/58 143/47 143/51 O2 Sat by Pulse 96 97 96 Oximetry 02/18/21 02/18/21 12:39 13:00 Temperature Pulse Rate 58 L 56 L Respiratory 26 H Rate Blood Pressure 141/55 O2 Sat by Pulse 94 Oximetry Constitutional: other (critically ill on BIPAP) Eyes: non-icteric ENT: oropharynx moist Neck: supple Effort: mildly labored Ascultation: Bilateral: diminished breath sounds Cardiovascular: other (tachy, RR; no mrg) Gastrointestinal: normoactive bowel sounds, soft, non-tender, non-distended Integumentary: normal Extremities: no cyanosis, no edema, pink and warm Neurologic: normal mental status, non-focal exam Psychiatric: mood appropriate, affect normal CBC and BMP: 02/18/21 07:10 02/18/21 07:10 ABG, PT/INR, D-dimer: ABG ABG pH 7.272 (7.320-7.450) L 02/15/21 09:09 POC ABG pCO2 53.9 mmHg (32.0-48.0) H 02/15/21 09:09 POC ABG pO2 78.7 mmHg (83-108) L 02/15/21 09:09 POC ABG HCO3 24.3 02/15/21 09:09 ABG O2 Saturation 95.0 (0-100) 02/15/21 09:09 PT/INR, D-dimer PT 13.8 Sec. (12.2-14.9) 02/12/21 12:20 INR 1.01 (0.87-1.13) 02/12/21 12:20 Abnormal lab findings: Abnormal Labs 02/12/21 02/12/21 02/12/21 10:45 11:59 12:20 WBC RBC Hgb Hct MCHC RDW Plt Count Lymph % (Auto) [place] % (Auto) Lymph # (Auto) [place] # (Auto) Seg Neutrophils % Seg Neuts % (Manual) Lymphocytes % (Manual) Seg Neutrophils # Seg Neutrophils # Man Lymphocytes # (Manual) Monocytes # (Manual) Basophils # (Manual) APTT ABG pH 7.265 L POC ABG pCO2 49.9 H POC ABG pO2 168.3 H ABG Hemoglobin 10.1 L ABG Oxyhemoglobin 98.5 H ABG Potassium ABG Glucose 330 H Carboxyhemoglobin 0.3 L Sodium Potassium Chloride Carbon Dioxide BUN Creatinine Glucose POC Glucose 291 H Hemoglobin A1c Lactic Acid Direct Bilirubin Troponin T 0.058 H NT-Pro-B Natriuret Pep Albumin LDL Cholesterol Direct Arterial Blood Glucose 330 H Urine WBC (Auto) Crossmatch 02/12/21 02/12/21 02/12/21 12:20 12:20 12:20 WBC RBC Hgb Hct MCHC RDW Plt Count Lymph % (Auto) [place] % (Auto) Lymph # (Auto) [place] # (Auto) Seg Neutrophils % Seg Neuts % (Manual) Lymphocytes % (Manual) Seg Neutrophils # Seg Neutrophils # Man Lymphocytes # (Manual) Monocytes # (Manual) Basophils # (Manual) APTT 22.9 L ABG pH POC ABG pCO2 POC ABG pO2 ABG Hemoglobin ABG Oxyhemoglobin ABG Potassium ABG Glucose Carboxyhemoglobin Sodium Potassium Chloride Carbon Dioxide 21 L BUN 20 H Creatinine 1.7 H Glucose 278 H POC Glucose Hemoglobin A1c Lactic Acid 4.50 H* Direct Bilirubin 0.3 H Troponin T 0.056 H NT-Pro-B Natriuret Pep Albumin 3.4 L LDL Cholesterol Direct 40 L Arterial Blood Glucose Urine WBC (Auto) Crossmatch 02/12/21 02/12/21 02/12/21 12:20 14:25 16:46 WBC 30.4 H RBC 3.34 L Hgb 9.2 L Hct MCHC 29 L RDW 17.0 H Plt Count 458 H Lymph % (Auto) [place] % (Auto) Lymph # (Auto) [place] # (Auto) Seg Neutrophils % Seg Neuts % (Manual) 90.5 H Lymphocytes % (Manual) 0.5 L Seg Neutrophils # Seg Neutrophils # Man 27.5 H Lymphocytes # (Manual) 0.2 L Monocytes # (Manual) 1.8 H Basophils # (Manual) 0.2 H APTT ABG pH POC ABG pCO2 POC ABG pO2 ABG Hemoglobin ABG Oxyhemoglobin ABG Potassium ABG Glucose Carboxyhemoglobin Sodium Potassium Chloride Carbon Dioxide BUN Creatinine Glucose POC Glucose Hemoglobin A1c Lactic Acid 4.50 H* Direct Bilirubin Troponin T NT-Pro-B Natriuret Pep 6717 H Albumin LDL Cholesterol Direct Arterial Blood Glucose Urine WBC (Auto) Crossmatch 02/12/21 02/12/21 02/12/21 16:56 20:35 Unknown WBC RBC Hgb Hct MCHC RDW Plt Count Lymph % (Auto) [place] % (Auto) Lymph # (Auto) [place] # (Auto) Seg Neutrophils % Seg Neuts % (Manual) Lymphocytes % (Manual) Seg Neutrophils # Seg Neutrophils # Man Lymphocytes # (Manual) Monocytes # (Manual) Basophils # (Manual) APTT ABG pH 7.275 L POC ABG pCO2 POC ABG pO2 185.8 H ABG Hemoglobin 9.5 L ABG Oxyhemoglobin 98.6 H ABG Potassium 4.7 H ABG Glucose 330 H Carboxyhemoglobin 0.3 L Sodium Potassium Chloride Carbon Dioxide BUN Creatinine Glucose POC Glucose 307 H Hemoglobin A1c Lactic Acid Direct Bilirubin Troponin T NT-Pro-B Natriuret Pep Albumin LDL Cholesterol Direct Arterial Blood Glucose 330 H Urine WBC (Auto) 42.0 H Crossmatch 02/13/21 02/13/21 02/13/21 00:50 08:09 08:53 WBC RBC Hgb Hct MCHC RDW Plt Count Lymph % (Auto) [place] % (Auto) Lymph # (Auto) [place] # (Auto) Seg Neutrophils % Seg Neuts % (Manual) Lymphocytes % (Manual) Seg Neutrophils # Seg Neutrophils # Man Lymphocytes # (Manual) Monocytes # (Manual) Basophils # (Manual) APTT ABG pH POC ABG pCO2 POC ABG pO2 110.6 H ABG Hemoglobin 9.1 L ABG Oxyhemoglobin ABG Potassium 5.0 H ABG Glucose 338 H Carboxyhemoglobin 0.1 L Sodium Potassium Chloride Carbon Dioxide BUN Creatinine Glucose POC Glucose 278 H 289 H Hemoglobin A1c Lactic Acid Direct Bilirubin Troponin T NT-Pro-B Natriuret Pep Albumin LDL Cholesterol Direct Arterial Blood Glucose 338 H Urine WBC (Auto) Crossmatch 02/13/21 02/13/21 02/13/21 10:32 12:19 16:53 WBC RBC Hgb Hct MCHC RDW Plt Count Lymph % (Auto) [place] % (Auto) Lymph # (Auto) [place] # (Auto) Seg Neutrophils % Seg Neuts % (Manual) Lymphocytes % (Manual) Seg Neutrophils # Seg Neutrophils # Man Lymphocytes # (Manual) Monocytes # (Manual) Basophils # (Manual) APTT ABG pH POC ABG pCO2 POC ABG pO2 ABG Hemoglobin ABG Oxyhemoglobin ABG Potassium ABG Glucose Carboxyhemoglobin Sodium Potassium Chloride Carbon Dioxide BUN Creatinine Glucose POC Glucose 295 H 268 H Hemoglobin A1c Lactic Acid Direct Bilirubin Troponin T 0.069 H D NT-Pro-B Natriuret Pep Albumin LDL Cholesterol Direct Arterial Blood Glucose Urine WBC (Auto) Crossmatch 02/13/21 02/13/21 02/13/21 18:00 21:30 Unknown WBC 24.8 H RBC 2.99 L Hgb 8.3 L Hct 26.8 L MCHC RDW 16.4 H Plt Count Lymph % (Auto) [place] % (Auto) Lymph # (Auto) [place] # (Auto) Seg Neutrophils % Seg Neuts % (Manual) 98.0 H Lymphocytes % (Manual) Seg Neutrophils # Seg Neutrophils # Man 24.3 H Lymphocytes # (Manual) 0.0 L Monocytes # (Manual) Basophils # (Manual) APTT ABG pH POC ABG pCO2 POC ABG pO2 ABG Hemoglobin ABG Oxyhemoglobin ABG Potassium ABG Glucose Carboxyhemoglobin Sodium Potassium Chloride Carbon Dioxide BUN Creatinine Glucose POC Glucose 258 H Hemoglobin A1c Lactic Acid Direct Bilirubin Troponin T 0.051 H D NT-Pro-B Natriuret Pep Albumin LDL Cholesterol Direct Arterial Blood Glucose Urine WBC (Auto) Crossmatch 02/13/21 02/13/21 02/14/21 Unknown Unknown 07:11 WBC RBC Hgb Hct MCHC RDW Plt Count Lymph % (Auto) [place] % (Auto) Lymph # (Auto) [place] # (Auto) Seg Neutrophils % Seg Neuts % (Manual) Lymphocytes % (Manual) Seg Neutrophils # Seg Neutrophils # Man Lymphocytes # (Manual) Monocytes # (Manual) Basophils # (Manual) APTT ABG pH POC ABG pCO2 POC ABG pO2 ABG Hemoglobin ABG Oxyhemoglobin ABG Potassium ABG Glucose Carboxyhemoglobin Sodium Potassium 5.2 H Chloride Carbon Dioxide BUN 29 H Creatinine 2.2 H Glucose 331 H POC Glucose 244 H Hemoglobin A1c 7.0 H Lactic Acid Direct Bilirubin Troponin T NT-Pro-B Natriuret Pep Albumin 3.1 L LDL Cholesterol Direct Arterial Blood Glucose Urine WBC (Auto) Crossmatch 02/14/21 02/14/21 02/14/21 07:49 07:49 11:37 WBC 25.1 H RBC 2.99 L Hgb 8.5 L Hct 26.6 L MCHC RDW 16.3 H Plt Count Lymph % (Auto) [place] % (Auto) Lymph # (Auto) [place] # (Auto) Seg Neutrophils % Seg Neuts % (Manual) Lymphocytes % (Manual) Seg Neutrophils # Seg Neutrophils # Man Lymphocytes # (Manual) Monocytes # (Manual) Basophils # (Manual) APTT ABG pH POC ABG pCO2 POC ABG pO2 ABG Hemoglobin ABG Oxyhemoglobin ABG Potassium ABG Glucose Carboxyhemoglobin Sodium Potassium Chloride Carbon Dioxide BUN 39 H Creatinine 2.1 H Glucose 253 H POC Glucose 229 H Hemoglobin A1c Lactic Acid Direct Bilirubin Troponin T NT-Pro-B Natriuret Pep Albumin LDL Cholesterol Direct Arterial Blood Glucose Urine WBC (Auto) Crossmatch 02/14/21 02/14/21 02/15/21 17:04 21:25 05:50 WBC 14.4 H RBC 2.69 L Hgb 7.4 L Hct 24.0 L MCHC RDW 16.3 H Plt Count Lymph % (Auto) [place] % (Auto) Lymph # (Auto) [place] # (Auto) Seg Neutrophils % Seg Neuts % (Manual) Lymphocytes % (Manual) Seg Neutrophils # Seg Neutrophils # Man Lymphocytes # (Manual) Monocytes # (Manual) Basophils # (Manual) APTT ABG pH POC ABG pCO2 POC ABG pO2 ABG Hemoglobin ABG Oxyhemoglobin ABG Potassium ABG Glucose Carboxyhemoglobin Sodium Potassium Chloride Carbon Dioxide BUN Creatinine Glucose POC Glucose 141 H 121 H Hemoglobin A1c Lactic Acid Direct Bilirubin Troponin T NT-Pro-B Natriuret Pep Albumin LDL Cholesterol Direct Arterial Blood Glucose Urine WBC (Auto) Crossmatch 02/15/21 02/15/21 02/15/21 05:50 07:35 09:09 WBC RBC Hgb Hct MCHC RDW Plt Count Lymph % (Auto) [place] % (Auto) Lymph # (Auto) [place] # (Auto) Seg Neutrophils % Seg Neuts % (Manual) Lymphocytes % (Manual) Seg Neutrophils # Seg Neutrophils # Man Lymphocytes # (Manual) Monocytes # (Manual) Basophils # (Manual) APTT ABG pH 7.272 L POC ABG pCO2 53.9 H POC ABG pO2 78.7 L ABG Hemoglobin 8.8 L ABG Oxyhemoglobin 93.0 L ABG Potassium ABG Glucose 197 H Carboxyhemoglobin 1.8 H Sodium Potassium Chloride 107.1 H Carbon Dioxide BUN 44 H Creatinine 2.3 H Glucose 162 H POC Glucose 182 H Hemoglobin A1c Lactic Acid Direct Bilirubin Troponin T NT-Pro-B Natriuret Pep Albumin LDL Cholesterol Direct Arterial Blood Glucose 197 H Urine WBC (Auto) Crossmatch 02/15/21 02/15/21 02/15/21 11:30 11:40 16:07 WBC RBC Hgb Hct MCHC RDW Plt Count Lymph % (Auto) [place] % (Auto) Lymph # (Auto) [place] # (Auto) Seg Neutrophils % Seg Neuts % (Manual) Lymphocytes % (Manual) Seg Neutrophils # Seg Neutrophils # Man Lymphocytes # (Manual) Monocytes # (Manual) Basophils # (Manual) APTT ABG pH POC ABG pCO2 POC ABG pO2 ABG Hemoglobin ABG Oxyhemoglobin ABG Potassium ABG Glucose Carboxyhemoglobin Sodium Potassium Chloride Carbon Dioxide BUN Creatinine Glucose POC Glucose 160 H 142 H Hemoglobin A1c Lactic Acid Direct Bilirubin Troponin T NT-Pro-B Natriuret Pep Albumin LDL Cholesterol Direct Arterial Blood Glucose Urine WBC (Auto) Crossmatch See Detail 02/15/21 02/16/21 02/16/21 21:52 08:09 11:51 WBC RBC Hgb Hct MCHC RDW Plt Count Lymph % (Auto) [place] % (Auto) Lymph # (Auto) [place] # (Auto) Seg Neutrophils % Seg Neuts % (Manual) Lymphocytes % (Manual) Seg Neutrophils # Seg Neutrophils # Man Lymphocytes # (Manual) Monocytes # (Manual) Basophils # (Manual) APTT ABG pH POC ABG pCO2 POC ABG pO2 ABG Hemoglobin ABG Oxyhemoglobin ABG Potassium ABG Glucose Carboxyhemoglobin Sodium Potassium Chloride Carbon Dioxide BUN Creatinine Glucose POC Glucose 143 H 167 H 186 H Hemoglobin A1c Lactic Acid Direct Bilirubin Troponin T NT-Pro-B Natriuret Pep Albumin LDL Cholesterol Direct Arterial Blood Glucose Urine WBC (Auto) Crossmatch 02/16/21 02/16/21 02/16/21 14:45 14:45 16:29 WBC 15.4 H RBC 3.11 L Hgb 9.1 L Hct 27.8 L MCHC RDW 15.9 H Plt Count Lymph % (Auto) 3.6 L [place] % (Auto) 9.0 H Lymph # (Auto) 0.6 L [place] # (Auto) 1.4 H Seg Neutrophils % 87.3 H Seg Neuts % (Manual) Lymphocytes % (Manual) Seg Neutrophils # 13.4 H Seg Neutrophils # Man Lymphocytes # (Manual) Monocytes # (Manual) Basophils # (Manual) APTT ABG pH POC ABG pCO2 POC ABG pO2 ABG Hemoglobin ABG Oxyhemoglobin ABG Potassium ABG Glucose Carboxyhemoglobin Sodium Potassium Chloride Carbon Dioxide BUN 53 H Creatinine 2.5 H Glucose 201 H POC Glucose 180 H Hemoglobin A1c Lactic Acid Direct Bilirubin Troponin T NT-Pro-B Natriuret Pep Albumin LDL Cholesterol Direct Arterial Blood Glucose Urine WBC (Auto) Crossmatch 02/16/21 02/17/21 02/17/21 21:33 05:38 05:38 WBC 13.4 H RBC 2.91 L Hgb 8.4 L Hct 25.7 L MCHC RDW 15.8 H Plt Count Lymph % (Auto) [place] % (Auto) Lymph # (Auto) [place] # (Auto) Seg Neutrophils % Seg Neuts % (Manual) Lymphocytes % (Manual) Seg Neutrophils # Seg Neutrophils # Man Lymphocytes # (Manual) Monocytes # (Manual) Basophils # (Manual) APTT ABG pH POC ABG pCO2 POC ABG pO2 ABG Hemoglobin ABG Oxyhemoglobin ABG Potassium ABG Glucose Carboxyhemoglobin Sodium 146 H Potassium Chloride 108.3 H Carbon Dioxide BUN 55 H Creatinine 2.5 H Glucose 169 H POC Glucose 164 H Hemoglobin A1c Lactic Acid Direct Bilirubin Troponin T NT-Pro-B Natriuret Pep Albumin LDL Cholesterol Direct Arterial Blood Glucose Urine WBC (Auto) Crossmatch 02/17/21 02/17/21 02/17/21 07:28 12:12 15:38 WBC RBC Hgb Hct MCHC RDW Plt Count Lymph % (Auto) [place] % (Auto) Lymph # (Auto) [place] # (Auto) Seg Neutrophils % Seg Neuts % (Manual) Lymphocytes % (Manual) Seg Neutrophils # Seg Neutrophils # Man Lymphocytes # (Manual) Monocytes # (Manual) Basophils # (Manual) APTT ABG pH POC ABG pCO2 POC ABG pO2 ABG Hemoglobin ABG Oxyhemoglobin ABG Potassium ABG Glucose Carboxyhemoglobin Sodium Potassium Chloride Carbon Dioxide BUN Creatinine Glucose POC Glucose 142 H 156 H 161 H Hemoglobin A1c Lactic Acid Direct Bilirubin Troponin T NT-Pro-B Natriuret Pep Albumin LDL Cholesterol Direct Arterial Blood Glucose Urine WBC (Auto) Crossmatch 02/17/21 02/18/21 02/18/21 21:42 07:10 07:10 WBC RBC 2.92 L Hgb 8.6 L Hct 26.0 L MCHC RDW 15.8 H Plt Count Lymph % (Auto) 5.8 L [place] % (Auto) Lymph # (Auto) 0.5 L [place] # (Auto) Seg Neutrophils % 86.6 H Seg Neuts % (Manual) Lymphocytes % (Manual) Seg Neutrophils # 8.0 H Seg Neutrophils # Man Lymphocytes # (Manual) Monocytes # (Manual) Basophils # (Manual) APTT ABG pH POC ABG pCO2 POC ABG pO2 ABG Hemoglobin ABG Oxyhemoglobin ABG Potassium ABG Glucose Carboxyhemoglobin Sodium 150 H Potassium Chloride 110.3 H Carbon Dioxide BUN 63 H Creatinine 2.5 H Glucose 168 H POC Glucose 131 H Hemoglobin A1c Lactic Acid Direct Bilirubin Troponin T 0.057 H NT-Pro-B Natriuret Pep Albumin LDL Cholesterol Direct Arterial Blood Glucose Urine WBC (Auto) Crossmatch 02/18/21 02/18/21 08:28 11:51 WBC RBC Hgb Hct MCHC RDW Plt Count Lymph % (Auto) [place] % (Auto) Lymph # (Auto) [place] # (Auto) Seg Neutrophils % Seg Neuts % (Manual) Lymphocytes % (Manual) Seg Neutrophils # Seg Neutrophils # Man Lymphocytes # (Manual) Monocytes # (Manual) Basophils # (Manual) APTT ABG pH POC ABG pCO2 POC ABG pO2 ABG Hemoglobin ABG Oxyhemoglobin ABG Potassium ABG Glucose Carboxyhemoglobin Sodium Potassium Chloride Carbon Dioxide BUN Creatinine Glucose POC Glucose 150 H 167 H Hemoglobin A1c Lactic Acid Direct Bilirubin Troponin T NT-Pro-B Natriuret Pep Albumin LDL Cholesterol Direct Arterial Blood Glucose Urine WBC (Auto) Crossmatch
[2021-02-18] MEDS: MILRINONE-D5W 20 MG/100 ML 20 MG/100 ML BAG IV SCH (15:12)
--- NOTE | 2021-02-18 15:58 | Ultrasound Report ---
ULTRASOUND RENAL INDICATION / CLINICAL INFORMATION: Acute renal failure.. COMPARISON: Chest radiograph from 02/17/2021. FINDINGS: RIGHT KIDNEY: Size (in cm): 12.5 - Echogenicity: Normal. - Cortical Thickness: Normal. - Hydronephrosis: None. - Cyst or mass: No significant abnormality. - Stones: 1.4 cm shadowing echogenic focus at the mid right kidney likely reflect renal stone. LEFT KIDNEY: Size (in cm): 13.1 - Echogenicity: Normal. - Cortical Thickness: Normal. - Hydronephrosis: None. - Cyst or mass: No significant abnormality. - Stones: 1.1 cm shadowing echogenic focus at the mid to lower left kidney likely reflect renal stone . URINARY BLADDER: [place] catheter decompresses the bladder. FREE FLUID: There is a left-sided pleural effusion, as demonstrated on recent chest radiograph. ADDITIONAL FINDINGS: None. IMPRESSION: 1. Bilateral nephrolithiasis. No acute sonographic abnormality of the kidneys. No hydronephrosis. 2. Left pleural effusion. Signer Name: Rod Quinonez MD Signed: 02/18/2021 3:53 PM Workstation Name: [id number]
--- NOTE | 2021-02-18 17:00 | Progress Note ---
Assessment and Plan This is a 62-year-old female with COPD, CHF, HTN, GERD, breast cancer, arthritis HLD, type 2 diabetes mellitus admitted s/p cardiac arrest with acute exacerbation of congestive heart failure, acute hypoxic respiratory failure, sepsis, acute kidney injury and electrolyte imbalances A/P --Acute metabolic encephalopathy -Fall/aspiration precautions -Reorientation as needed -02/12 CT head shows no acute intracranial abnormality -Likely due to severe hypoxia --S/p cardiac arrest -02/13 echocardiogram shows left ventricular function moderate to severely decreased, LVEF 20 to 25%, right ventricle systolic function normal, mitral valve annular calcification, thickened and calcified leaflets, mild to moderate mitral valve regurgitation, RVSP 11 mmHg, trace TR, large left pleural effusion with no pericardial effusion -Cardiology consulted, appreciate recommendations --Acute on chronic systolic heart failure -Cardiology consulted -Per cardiology 03/2018 echocardiogram showed ejection fraction of 45 to 50%, trace MR, trace TR -02/13 echocardiogram shows left ventricular function moderate to severely decreased, LVEF 20 to 25%, right ventricle systolic function normal, mitral valve annular calcification, thickened and calcified leaflets, mild to moderate mitral valve regurgitation, RVSP 11 mmHg, trace TR, large left pleural effusion with no pericardial effusion -IV lasix 40 mg twice daily milrinone per cardiology -strict I&O -asencio --Cardiogenic shock -Off Levophed -Blood pressure monitoring per protocol --Hypertension -Patient has a history of hypertension -Resume home antihypertenisive medication and titrate as needed --Elevated troponin/NSTEMI type II -Cardiology consulted -Likely due to cardiac arrest and renal failure -Trend trop --Hyperlipidemia -Resume home statin --Bilateral pleural effusions -evidenced on cxr -s/p lasix in ED -lasix IV, sprinolactone PO -Consider thoracentesis if no improvement in respiratory status and response to Lasix --Hyperkalemia, resolved -K 5.2 -Kayexalate -Trend potassium --Acute kidney injury, -Presented with a BUN/creatinine of 1.7/, 02/13 BUN/creatinine 2.2/ -Strict urine output -Avoid nephrotoxic medications -Renally dose medications -Daily weights -Nephrology consult --Hypernatremia, continue IV fluid, monitor BMP --Lactic acidosis, resolved -Presented with a lactic acid of 4.5, 7/2 lactic acid 0.8 --Sepsis -abx therapy -Presented with hypoxia, tachycardia, hypotension, leukocytosis -BC x2 pending -Tracheal aspirate pending --h/o Breast CA, need outpatient follow-up --DM type II -SSI, long acting insulin (titrate as needed) -Hbg A1C -Acccuchecks -Hypoglycemic protocol -CC consistent carbohydrate --Bilateral lower extremity skin lacerations -WOCN consulted -Wound care per nursing --Anxiety -Xanax prn --DVT prophylaxis, heparin The high probability of a clinically significant, sudden or life threatening deterioration of the [cardio/respiratory] system(s) required my full and direct attention, intervention and personal management. The aggregate critical care time was [35] minutes. This time is in addition to time spent performing reported procedures but includes the following: [x] Data Review and interpretation [x] Patient assessment and monitoring of vital signs [x] Documentation [x] Medication orders and managementdiet DVT/GI prophylaxis: PPI, SCDs to bilateral ultrasound in bed, heparin subcu Disposition: Continue care in IMCU, low threshold for reintubation. Guarded prognosis Lines: CVL, asencio Brief history This is a 62-year-old female with COPD, CHF, HTN, GERD, breast cancer, arthritis HLD, type 2 diabetes mellitus who presented to the emergency department on 02/12 with complaints of severe shortness of breath and upon presentation patient assistance duration was 70% despite being on BiPAP and was electively intubated. After intubation patient had cardiac arrest with PEA and ACLS was initiated for approximately 5 minutes with achievement of ROSC. Patient later self extubated and was placed back on BiPAP. Work-up in the emergency department revealed leukocytosis, lactic acidosis, and CXR showed bilateral pleural effusions with pulmonary edema, elevated proBNP, elevated troponins. Patient was admitted to the hospital service s/p cardiac arrest, acute hypoxic respiratory failure, acute exacerbation of CHF and sepsis with consults to cardiology and [facility]. Daily clinical course: 02/13: Patient weaned to high flow nasal cannula, echocardiogram pending, Levophed titrated off, COVID-19 PCR negative 02/14: Patient was transferred to stepdown status, per cardiology patient received IV Lasix to help with pleural effusion seen on echocardiogram. Echocardiogram read with ejection fraction of 20 to 25%. Patient was started on Xanax to help with anxiety. Long-acting insulin increased due to persistent hyperglycemia 02/15: Patient placed back on BiPAP, started to have respiratory decompensation. Spoke with cardiology and pulmonology, will start milrinone, continue Lasix, low threshold for reintubation. 02/16: milrinone drip is running, continue 5: Patient seen and examined with at the bedside, patient continues to be very agitated, given sedation, low threshold for reintubation. Diuresis with Lasix. 02/17: Patient remains on continuous BiPAP and milrinone drip. She took off her BiPAP mask this morning which was immediately replaced by respiratory therapist. Patient remains lethargic and slightly restless. H&H remained stable, creatin ine continue to trend up-consult nephrology, follow BMP. 02/18/21; patient on Bumex and milrinone drip. Also initiated on D5W at 30 mils per hour as patient unable to eat because she is on continuous BiPAP and sodium level 150 today, repeat BMP tomorrow. Poor prognosis Subjective Date of service: 02/18/21 Principal diagnosis: Pulmonary Edema Interval history: Patient seen and examined. Medical records and medication list reviewed. No acute event overnight noted by the RN. Vitals noted Patient remains on continuous BiPAP Discussed plan of care at bedside with patient's RN Sodium level noted to be elevated Objective - Exam Narrative Exam: GENERAL: Morbidly obese white female lying on bed appeared to be lethargic with BiPAP HEENT: Normocephalic. Atraumatic. No conjunctival congestion or icterus. Patient has moist mucous membranes. NECK: Supple. Trachea midline. CHEST/LUNGS: On continuous BiPAP, coarse breath sounds auscultated bilaterally HEART/CARDIOVASCULAR: Regular in rate and rhythm. S1 and S2 positive. ABDOMEN: Abdomen is soft, nontender. Patient has normal bowel sounds. SKIN: There is no rash. Warm and dry. NEURO: Sedated MUSCULOSKELETAL: No joint effusion or tenderness. EXTRIMITY: Lower extremity wound with a dry scaly skin, + edema PSYCH: Unable to assess - Constitutional Vitals: Vital Signs - 12hr 02/18/21 02/18/21 02/18/21 05:00 05:39 06:00 Temperature 98.2 F Pulse Rate 75 69 53 L Respiratory 27 H 24 Rate Blood Pressure 125/63 138/62 139/58 O2 Sat by Pulse 91 95 Oximetry 02/18/21 02/18/21 02/18/21 07:00 08:00 09:00 Temperature Pulse Rate 56 L 56 L 75 Respiratory 25 H 24 27 H Rate Blood Pressure 147/50 149/50 136/70 O2 Sat by Pulse 95 95 96 Oximetry 02/18/21 02/18/21 02/18/21 09:07 10:00 11:00 Temperature Pulse Rate 63 59 L 58 L Respiratory 32 H 25 H 22 Rate Blood Pressure 153/69 136/58 143/47 O2 Sat by Pulse 99 96 97 Oximetry 02/18/21 02/18/21 02/18/21 12:00 12:39 13:00 Temperature Pulse Rate 92 H 58 L 56 L Respiratory 30 H 26 H Rate Blood Pressure 143/51 141/55 O2 Sat by Pulse 96 94 Oximetry 02/18/21 02/18/21 14:00 15:00 Temperature Pulse Rate 62 59 L Respiratory 20 20 Rate Blood Pressure 139/66 135/56 O2 Sat by Pulse 94 97 Oximetry - Labs CBC & Chem 7: 02/22/21 04:00 02/23/21 04:00 Labs: Abnormal lab results 02/17/21 02/18/21 02/18/21 Range/Units 21:42 07:10 07:10 RBC 2.92 L (3.65-5.03) M/mm3 Hgb 8.6 L (10.1-14.3) gm/dl Hct 26.0 L (30.3-42.9) % RDW 15.8 H (13.2-15.2) % Lymph % (Auto) 5.8 L (13.4-35.0) % Lymph # (Auto) 0.5 L (1.2-5.4) K/mm3 Seg Neutrophils % 86.6 H (40.0-70.0) % Seg Neutrophils # 8.0 H (1.8-7.7) K/mm3 Sodium 150 H (137-145) mmol/L Chloride 110.3 H (98-107) mmol/L BUN 63 H (7-17) mg/dL Creatinine 2.5 H (0.6-1.2) mg/dL Glucose 168 H (65-100) mg/dL POC Glucose 131 H (70-105) mg/dL Troponin T 0.057 H (0.00-0.029) ng/mL 02/18/21 02/18/21 Range/Units 08:28 11:51 RBC (3.65-5.03) M/mm3 Hgb (10.1-14.3) gm/dl Hct (30.3-42.9) % RDW (13.2-15.2) % Lymph % (Auto) (13.4-35.0) % Lymph # (Auto) (1.2-5.4) K/mm3 Seg Neutrophils % (40.0-70.0) % Seg Neutrophils # (1.8-7.7) K/mm3 Sodium (137-145) mmol/L Chloride (98-107) mmol/L BUN (7-17) mg/dL Creatinine (0.6-1.2) mg/dL Glucose (65-100) mg/dL POC Glucose 150 H 167 H (70-105) mg/dL Troponin T (0.00-0.029) ng/mL HEART Score - HEART Score EKG: Non-specific Age: > 65 Risk factors: 1-2 risk factors Troponin: Troponin T 0.057 ng/mL (0.00-0.029) H 02/18/21 07:10 Troponin: < normal limit - Critical Actions Critical Actions: 4-6 pts:12-16.6% risk of adverse cardiac event. Should be admitted
[2021-02-18] MEDS ORDERED: DEXTROSE 5% IN WATER 1,000 ML IV SCH (18:00)
[2021-02-19] MEDS: MILRINONE-D5W 20 MG/100 ML 20 MG/100 ML BAG IV SCH
[2021-02-19] MEDS: METOPROLOL TARTRATE 5 MG/5 ML INJ IV SCH ×4 (00:55→18:03)
[2021-02-19] MEDS ORDERED: CHLOROTHIAZIDE 500 MG VIAL IV SCH (08:00)
[2021-02-19] MEDS: INSULIN GLARGINE 100 UNITS/ML SUB-Q SCH (08:49)
[2021-02-19] MEDS: INSULIN LISPRO 100 UNIT/ML SUB-Q SCH ×4 (08:50→21:25)
[2021-02-19] MEDS: HEPARIN 5,000 UNIT/1 ML VIAL SUB-Q SCH ×2 (09:01→21:25)
[2021-02-19] MEDS: ASPIRIN 81 MG TAB CHEW PO SCH ×2 (09:02→09:17)
[2021-02-19] MEDS: FAMOTIDINE 20 MG/2 ML INJ IV SCH (09:02)
[2021-02-19] MEDS: SENNOSIDES/DOCUSATE SODIUM 8.6/50 MG TAB FEEDTUBE SCH ×3 (09:02→21:25)
--- NOTE | 2021-02-19 10:12 | Progress Note ---
Assessment and Plan 1. Acute kidney injury: Vasomotor ANGELA superimposed on CKD in the setting of Cardiac arrest/ hypotension. Renal US negative for hydro. Urine studies ordered. Monitor renal function. Creatinine level is increasing. Avoid nephrotoxic agents. Meds dosage based on GFR. 2. FEN: Hypernatremia, continue IV D5W, monitor. Hold diuretics due to hypotension. Monitor lytes and volume status. 3. S/p cardiac arrest: 02/13 echocardiogram showed LVEF 20 to 25%. Followed by Cardiology. 4. Acute HFeEF: Followed by Cardiology. On Milrinone drip. 5. Acute respiratory failure: S/p mechanical ventilation s/p self extuabtion. Currently on BiPAP. Followed by Pulmonary. 6. Elevated troponin: S/p cardiac arrest. Maybe NSTEMI type II. Followed by Cards. 7. Acute metabolic encephalopathy: Monitor. 8. Shock: Off pressor. Monitor Blood pressure. 9. Bilateral pleural effusions: Diuretics when BP is better. 10. Sepsis, POA: Follow culture. Monitor. 11. H/o Breast CA. 12. DM: SSI, long acting insulin (titrate as needed). Subjective: Patient was seen and examined at the bedside. Examination: General appearance: obese, well-developed, appears stated age, on BIPAP HEENT: ATNC, Pupils equal Neck: trachea midline Respiratory: Coarse breath sounds Heart: regular, S1S2, no murmur Abdomen: soft, normoactive bowel sounds, not tender Integumentary: LE stasis changes, superficial ulcers noted Neurologic: stuporous Ext: trace LE edema : asencio catheter Subjective Date of service: 02/19/21 Principal diagnosis: Pulmonary Edema Objective - Vital Signs Vital signs: Vital Signs - 12hr 02/18/21 02/18/21 02/19/21 23:00 23:26 00:00 Temperature 98.0 F Pulse Rate 85 84 Pulse Rate [ 84 From Monitor] Respiratory 32 H 22 Rate Blood Pressure 109/45 129/48 O2 Sat by Pulse 97 Oximetry 02/19/21 02/19/21 02/19/21 00:30 00:37 00:40 Temperature Pulse Rate 117 H 90 75 Pulse Rate [ From Monitor] Respiratory 33 H 31 H 28 H Rate Blood Pressure 98/47 98/47 98/47 O2 Sat by Pulse 97 97 97 Oximetry 02/19/21 02/19/21 02/19/21 00:50 00:55 01:00 Temperature Pulse Rate 92 H 87 Pulse Rate [ From Monitor] Respiratory 27 H 32 H Rate Blood Pressure 92/53 92/53 95/46 O2 Sat by Pulse 97 96 Oximetry 02/19/21 02/19/21 02/19/21 01:30 02:00 02:30 Temperature Pulse Rate 70 71 78 Pulse Rate [ From Monitor] Respiratory 28 H 29 H 38 H Rate Blood Pressure 106/44 114/44 134/52 O2 Sat by Pulse 96 96 92 Oximetry 02/19/21 02/19/21 02/19/21 03:00 03:30 04:00 Temperature 97.8 F Pulse Rate 85 71 67 Pulse Rate [ 67 From Monitor] Respiratory 19 32 H 34 H Rate Blood Pressure 134/54 106/46 97/44 O2 Sat by Pulse 90 93 93 Oximetry 02/19/21 02/19/21 02/19/21 04:22 04:30 05:00 Temperature Pulse Rate 67 67 99 H Pulse Rate [ From Monitor] Respiratory 34 H 33 H 36 H Rate Blood Pressure 100/45 105/45 141/68 O2 Sat by Pulse 93 92 Oximetry 02/19/21 02/19/21 02/19/21 05:30 06:00 06:16 Temperature Pulse Rate 84 72 71 Pulse Rate [ From Monitor] Respiratory 34 H 35 H Rate Blood Pressure 139/59 108/44 109/47 O2 Sat by Pulse 91 91 Oximetry 02/19/21 02/19/21 02/19/21 06:30 07:00 07:30 Temperature Pulse Rate 109 H 88 80 Pulse Rate [ From Monitor] Respiratory 24 34 H 38 H Rate Blood Pressure 157/70 93/45 93/45 O2 Sat by Pulse 90 91 Oximetry 02/19/21 02/19/21 08:00 09:03 Temperature Pulse Rate 88 98 H Pulse Rate [ From Monitor] Respiratory 38 H 34 H Rate Blood Pressure 112/39 104/45 O2 Sat by Pulse 91 98 Oximetry - Lab 02/18/21 07:10 02/19/21 05:20 Most recent lab results ABG pH 7.272 (7.320-7.450) L 02/15/21 09:09 ABG O2 Saturation 95.0 (0-100) 02/15/21 09:09 Calcium 9.0 mg/dL (8.4-10.2) 02/19/21 05:20 Magnesium 2.30 mg/dL (1.7-2.3) 02/18/21 07:10 Medications & Allergies - Medications Allergies/Adverse Reactions: Allergies Penicillins Allergy (Verified 02/12/21 17:19) Unknown contrast Allergy (Uncoded 02/14/21 18:30) Rash Home Medications: Home Medications Medication Instructions Recorded Confirmed Last Taken Type AtorvaSTATin [Lipitor] 40 mg PO QHS 02/12/21 02/12/21 Unknown History Metoprolol Succinate [Kapspargo 25 mg PO QDAY 02/12/21 02/12/21 Unknown History Sprinkle] Spironolactone [Aldactone] 25 mg PO QDAY 02/12/21 02/12/21 Unknown History amLODIPine [Norvasc] 5 mg PO DAILY 02/12/21 02/12/21 Unknown History glipiZIDE [Glucotrol] 5 mg PO BID 02/12/21 02/12/21 Unknown History metFORMIN [Glucophage] 500 mg PO BID 02/12/21 02/13/21 Unknown History Aspirin [Adult Aspirin] 1 tab PO QDAY 02/13/21 02/13/21 Unknown History Biotin [Biotin 5,000 rapdis] 5,000 mcg PO 02/13/21 Unknown History NovoLOG Flexpen SC ACHS 02/13/21 Unknown History Active Medications: Generic Name Dose Route Start Last Admin Trade Name Freq PRN Reason Stop Dose Admin Acetaminophen 650 mg 02/12/21 20:45 Acetaminophen 325 Mg Tab PO Q4H PRN Pain MILD(1-3)/Fever >100.5/CHAMBERS Albuterol 2.5 mg 02/13/21 09:54 02/17/21 09:14 Albuterol 2.5 Mg/3 Ml Nebu IH 2.5 mg Q4HRT PRN Administration Wheezing Alprazolam 0.5 mg 02/14/21 10:42 02/16/21 09:59 Alprazolam 0.5 Mg Tab PO 0.5 mg TID PRN Administration Anxiety Aspirin 81 mg 02/17/21 10:00 02/19/21 09:17 Aspirin 81 Mg Tab Chew PO Not Given QDAY AV Atorvastatin Calcium 40 mg 02/12/21 22:00 02/18/21 21:54 Atorvastatin 40 Mg Tab PO Not Given QHS [facility] Bumetanide 1 mg 02/19/21 09:58 Bumetanide 1 Mg/4 Ml Inj IV BID@0600,1800 AV Chlorothiazide Sodium 500 mg 02/19/21 08:00 02/19/21 08:52 Chlorothiazide 500 Mg Vial IV 500 mg BID AV Administration Dextrose 50 ml 02/13/21 11:30 Dextrose 50% In Water (25gm) 50 Ml Syringe IV Q30MIN PRN Hypoglycemia Protocol Famotidine 20 mg 02/17/21 10:00 02/19/21 09:02 Famotidine 20 Mg/2 Ml Inj IV 20 mg DAILY AV Administration Heparin Sodium (Porcine) 5,000 unit 02/12/21 22:00 02/19/21 09:01 Heparin 5,000 Unit/1 Ml Vial SUB-Q 5,000 unit Q12HR AV Administration Hydralazine HCl 10 mg 02/12/21 20:49 Hydralazine 20 Mg/1 Ml Inj IV Q3H PRN SBP >/=160; DBP >/=100 Hydromorphone HCl 0.5 mg 02/12/21 20:45 02/15/21 10:20 Hydromorphone 1 Mg/1 Ml Inj IV 0.5 mg Q3H PRN Administration Pain , Severe (7-10) Hydrophilic Ointment 1 applic 02/12/21 10:49 Lip Therapy Vaseline TP Q2HR PRN Dry Lips Dexmedetomidine HCl 400 mcg/ 104 mls @ 5.106 mls/hr 02/17/21 10:00 02/19/21 09:22 Sodium Chloride IV 0.5 mcg/kg/hr TITRATE AV 12.766 mls/hr Titration Protocol 0.2 MCG/KG/HR Milrinone Lactate/Dextrose 20 mg in 100 mls @ 8.249 mls/hr 02/18/21 12:56 02/19/21 00:00 Milrinone-D5w 20 Mg/100 Ml IV 02/20/21 12:55 0.28 mcg/kg/min DIRECT AV 8.249 mls/hr Administration Protocol 0.28 MCG/KG/MIN Dextrose 1,000 mls @ 30 mls/hr 02/18/21 18:00 02/18/21 17:25 D5w IV 30 mls/hr DIRECT AV Administration Insulin Glargine 10 units 02/15/21 08:00 02/19/21 08:49 Insulin Glargine 100 Units/Ml SUB-Q 10 units QAMDIAB AV Administration Insulin Human Lispro 0 unit 02/13/21 11:30 02/19/21 08:50 Insulin Lispro 100 Unit/Ml SUB-Q 3 unit ACHS AV Administration Protocol Metoclopramide HCl 5 mg 02/12/21 20:56 Metoclopramide 10 Mg/2 Ml Inj IV Q6H PRN Nausea And Vomiting Metoprolol Tartrate 5 mg 02/17/21 12:00 02/19/21 06:16 Metoprolol Tartrate 5 Mg/5 Ml Inj IV Not Given Q6HR AV Morphine Sulfate 2 mg 02/12/21 20:45 02/17/21 06:16 Morphine 2 Mg/1 Ml Inj IV 2 mg Q4H PRN Administration Pain, Moderate (4-6) Multi-Ingred Cream/Lotion/Oil/Oint 1 applic 02/12/21 10:49 Mineral Oil/Petrolatum, White Ophth Oint 3.5 Gm OU Q4HR PRN Dry Eye(s) Ondansetron HCl 4 mg 02/12/21 20:45 Ondansetron 4 Mg/2 Ml Inj IV Q8H PRN Nausea And Vomiting Phenyleph/Shark Oil/Min Oil/Petrol 1 applic 02/15/21 12:52 Pe/Mo/Pet,Wh 10 Applic/28 Gm Tube TN Q6HR PRN Hemorrhoids Senna/Docusate Sodium 1 tab 02/12/21 22:00 02/19/21 09:17 Sennosides/Docusate Sodium 8.6/50 Mg Tab FEEDTUBE Not Given BID AV Sodium Chloride 10 ml 02/12/21 22:00 02/19/21 09:03 Sodium Chloride 0.9% 10 Ml Flush Syringe IV 10 ml BID AV Administration Sodium Chloride 10 ml 02/12/21 20:45 Sodium Chloride 0.9% 10 Ml Flush Syringe IV PRN PRN LINE FLUSH
[2021-02-19] MEDS ORDERED: fentaNYL 100 MCG/2 ML INJ ONE (10:49)
[2021-02-19] MEDS ORDERED: MIDAZOLAM 2 MG/2 ML INJ ONE (10:50)
[2021-02-19] MEDS ORDERED: ETOMIDATE 20 MG/10 ML INJ IV ONE ×2 (10:51→10:55)
[2021-02-19] MEDS ORDERED: MIDAZOLAM 2 MG/2 ML INJ IV ONE (10:55)
[2021-02-19] MEDS ORDERED: fentaNYL 100 MCG/2 ML INJ IV ONE (10:55)
[2021-02-19] MEDS ORDERED: MINERAL OIL/PETROLATUM, WHITE OPHTH OINT 3.5 GM OU PRN (10:59)
[2021-02-19] MEDS ORDERED: LIP THERAPY VASELINE TP PRN (10:59)
[2021-02-19] MEDS ORDERED: BUMETANIDE 1 MG/4 ML INJ IV SCH (11:00)
[2021-02-19] MEDS ORDERED: FAMOTIDINE 20 MG/2 ML INJ IV SCH (11:00)
--- NOTE | 2021-02-19 11:54 | XRay Report ---
CHEST 1 VIEW 1128 INDICATION / CLINICAL INFORMATION: ETT placement COMPARISON: 02/17/2021 FINDINGS: SUPPORT DEVICES: Endotracheal tube is seen appearing to be in satisfactory position with tip approxim ate 7 cm above the jorge. Central line is unchanged. HEART / MEDIASTINUM: Stable LUNGS / PLEURA: Patient is moderately rotated. Extensive bilateral pulmonary infiltrates have worsene d and are most prominent in the upper lobes, especially now in the right upper lobe. Bilateral small- to-moderate pleural effusions are seen, greater on the right, with associated atelectasis/infiltrate in the bases. No pneumothorax. ADDITIONAL FINDINGS: No significant additional findings. Signer Name: Jasmeet Sellers MD Signed: 02/19/2021 11:50 AM Workstation Name: [id number]
--- NOTE | 2021-02-19 12:25 | Progress Note ---
Assessment and Plan 71 y/o female with acute respiratory failure, cardiac arrest with subsequent ROSC and then self-extubation, now weaned to HFNC with bilateral pleural effusions, cardiomegaly and elevated BNP. 02/19/21: Intubated and now sedated. Spoke with cards and they agree with using dobutamine. Will start at 5 and titrate as needed. May need to consider bronch but I feel this is all pulmonary edema. monitor temperature curve. Place NG tube and feed patient. Guarded prognosis. 02/18/21: Continue precedex. Wish that patient could have tolerated inotropic therapy as I feel this would benefit her the most. Will ask cards about it again. need to place patient on D5W at KVO given she is not eating and increases in Na. Wean FiO2 as tolerated. 02/17/21: Stopped pulmicort and brovana, no history of COPD. Will add precedex today. If HR improves may need to use dobuatmine as opposed to milrione but will defer to cards. If patient does not improve with precedex may need to re- intubate. Attempted to switch as many meds to IV as possible given continuous bipap. Would prefer not to have on that with continuous bipap. CXR this am sh ows stable pulmonary edema. Guard prognosis. 02/15/21: hopeful inotropes will help with volume removal as well as improve renal function. Hold on intubation right now. Continue to wean FiO2 as tole rated for sats >88%. Very very guarded prognosis. 02/14/21: Agree with diuresis, renal function should improve with this. Will see how she responds to this. If effusions don't lessen, may need thora on Tuesday/Tuesday. Also may need to consider inotropic support if she doesn't respond well to lasix. High risk for Ventricular Arrhythmia. Continue step down monitoring. Hopeful can wean HFNC with fluid removal. Also should accept MAPS of 55-60 as she likely lives in a low flow state. 1. Follow up ECHO 2. Agree with obtaining results/records from [facility] 3. Wean Vasopressors for MAPS>60 and normal mentation. 4. Would hold all antihypertensive and rate control meds until off vasopressor therapy. 5. If able to be weaned off pressors, can likely go to step down unit. WIll continue to monitor and follow Subjective Date of service: 02/19/21 Principal diagnosis: Pulmonary Edema Interval history: Worsening pulmonary status and not able to wean support so electively intubated today. Lost pulse briefly secondary to hypoxemia but regained in under 2 minutes. Patient is now awake post intubation and in need of sedation. NG tube being ordered. Spoke with over the phone to update him. Objective Vital Signs - 12hr 02/19/21 02/19/21 02/19/21 00:30 00:37 00:40 Temperature Pulse Rate 117 H 90 75 Pulse Rate [ From Monitor] Respiratory 33 H 31 H 28 H Rate Blood Pressure 98/47 98/47 98/47 O2 Sat by Pulse 97 97 97 Oximetry 02/19/21 02/19/21 02/19/21 00:50 00:55 01:00 Temperature Pulse Rate 92 H 87 Pulse Rate [ From Monitor] Respiratory 27 H 32 H Rate Blood Pressure 92/53 92/53 95/46 O2 Sat by Pulse 97 96 Oximetry 02/19/21 02/19/21 02/19/21 01:30 02:00 02:30 Temperature Pulse Rate 70 71 78 Pulse Rate [ From Monitor] Respiratory 28 H 29 H 38 H Rate Blood Pressure 106/44 114/44 134/52 O2 Sat by Pulse 96 96 92 Oximetry 02/19/21 02/19/21 02/19/21 03:00 03:30 04:00 Temperature 97.8 F Pulse Rate 85 71 67 Pulse Rate [ 67 From Monitor] Respiratory 19 32 H 34 H Rate Blood Pressure 134/54 106/46 97/44 O2 Sat by Pulse 90 93 93 Oximetry 02/19/21 02/19/21 02/19/21 04:22 04:30 05:00 Temperature Pulse Rate 67 67 99 H Pulse Rate [ From Monitor] Respiratory 34 H 33 H 36 H Rate Blood Pressure 100/45 105/45 141/68 O2 Sat by Pulse 93 92 Oximetry 02/19/21 02/19/21 02/19/21 05:30 06:00 06:16 Temperature Pulse Rate 84 72 71 Pulse Rate [ From Monitor] Respiratory 34 H 35 H Rate Blood Pressure 139/59 108/44 109/47 O2 Sat by Pulse 91 91 Oximetry 02/19/21 02/19/21 02/19/21 06:30 07:00 07:30 Temperature Pulse Rate 109 H 88 80 Pulse Rate [ From Monitor] Respiratory 24 34 H 38 H Rate Blood Pressure 157/70 93/45 93/45 O2 Sat by Pulse 90 91 Oximetry 02/19/21 02/19/21 02/19/21 08:00 08:30 09:00 Temperature Pulse Rate 71 97 H 78 Pulse Rate [ 71 From Monitor] Respiratory 28 H 16 14 Rate Blood Pressure 112/39 112/39 104/45 O2 Sat by Pulse 96 96 95 Oximetry 02/19/21 02/19/21 02/19/21 09:03 09:30 10:00 Temperature Pulse Rate 98 H 112 H 98 H Pulse Rate [ From Monitor] Respiratory 34 H 13 14 Rate Blood Pressure 104/45 104/45 99/38 O2 Sat by Pulse 98 89 95 Oximetry 02/19/21 11:28 Temperature Pulse Rate 110 H Pulse Rate [ From Monitor] Respiratory Rate Blood Pressure 209/89 O2 Sat by Pulse 99 Oximetry Constitutional: other (critically ill on BIPAP) Eyes: non-icteric ENT: oropharynx moist Neck: supple Effort: mildly labored Ascultation: Bilateral: diminished breath sounds Cardiovascular: other (tachy, RR; no mrg) Gastrointestinal: normoactive bowel sounds, soft, non-tender, non-distended Integumentary: normal Extremities: no cyanosis, no edema, pink and warm Neurologic: normal mental status, non-focal exam Psychiatric: mood appropriate, affect normal CBC and BMP: 02/18/21 07:10 02/19/21 05:20 ABG, PT/INR, D-dimer: ABG ABG pH 7.272 (7.320-7.450) L 02/15/21 09:09 POC ABG pCO2 53.9 mmHg (32.0-48.0) H 02/15/21 09:09 POC ABG pO2 78.7 mmHg (83-108) L 02/15/21 09:09 POC ABG HCO3 24.3 02/15/21 09:09 ABG O2 Saturation 95.0 (0-100) 02/15/21 09:09 PT/INR, D-dimer PT 13.8 Sec. (12.2-14.9) 02/12/21 12:20 INR 1.01 (0.87-1.13) 02/12/21 12:20 Abnormal lab findings: Abnormal Labs 02/12/21 02/12/21 02/12/21 10:45 11:59 12:20 WBC RBC Hgb Hct MCHC RDW Plt Count Lymph % (Auto) [place] % (Auto) Lymph # (Auto) [place] # (Auto) Seg Neutrophils % Seg Neuts % (Manual) Lymphocytes % (Manual) Seg Neutrophils # Seg Neutrophils # Man Lymphocytes # (Manual) Monocytes # (Manual) Basophils # (Manual) APTT ABG pH 7.265 L POC ABG pCO2 49.9 H POC ABG pO2 168.3 H ABG Hemoglobin 10.1 L ABG Oxyhemoglobin 98.5 H ABG Potassium ABG Glucose 330 H Carboxyhemoglobin 0.3 L Sodium Potassium Chloride Carbon Dioxide BUN Creatinine Glucose POC Glucose 291 H Hemoglobin A1c Lactic Acid Direct Bilirubin Troponin T 0.058 H NT-Pro-B Natriuret Pep Albumin LDL Cholesterol Direct Arterial Blood Glucose 330 H Urine WBC (Auto) Crossmatch 02/12/21 02/12/21 02/12/21 12:20 12:20 12:20 WBC RBC Hgb Hct MCHC RDW Plt Count Lymph % (Auto) [place] % (Auto) Lymph # (Auto) [place] # (Auto) Seg Neutrophils % Seg Neuts % (Manual) Lymphocytes % (Manual) Seg Neutrophils # Seg Neutrophils # Man Lymphocytes # (Manual) Monocytes # (Manual) Basophils # (Manual) APTT 22.9 L ABG pH POC ABG pCO2 POC ABG pO2 ABG Hemoglobin ABG Oxyhemoglobin ABG Potassium ABG Glucose Carboxyhemoglobin Sodium Potassium Chloride Carbon Dioxide 21 L BUN 20 H Creatinine 1.7 H Glucose 278 H POC Glucose Hemoglobin A1c Lactic Acid 4.50 H* Direct Bilirubin 0.3 H Troponin T 0.056 H NT-Pro-B Natriuret Pep Albumin 3.4 L LDL Cholesterol Direct 40 L Arterial Blood Glucose Urine WBC (Auto) Crossmatch 02/12/21 02/12/21 02/12/21 12:20 14:25 16:46 WBC 30.4 H RBC 3.34 L Hgb 9.2 L Hct MCHC 29 L RDW 17.0 H Plt Count 458 H Lymph % (Auto) [place] % (Auto) Lymph # (Auto) [place] # (Auto) Seg Neutrophils % Seg Neuts % (Manual) 90.5 H Lymphocytes % (Manual) 0.5 L Seg Neutrophils # Seg Neutrophils # Man 27.5 H Lymphocytes # (Manual) 0.2 L Monocytes # (Manual) 1.8 H Basophils # (Manual) 0.2 H APTT ABG pH POC ABG pCO2 POC ABG pO2 ABG Hemoglobin ABG Oxyhemoglobin ABG Potassium ABG Glucose Carboxyhemoglobin Sodium Potassium Chloride Carbon Dioxide BUN Creatinine Glucose POC Glucose Hemoglobin A1c Lactic Acid 4.50 H* Direct Bilirubin Troponin T NT-Pro-B Natriuret Pep 6717 H Albumin LDL Cholesterol Direct Arterial Blood Glucose Urine WBC (Auto) Crossmatch 02/12/21 02/12/21 02/12/21 16:56 20:35 Unknown WBC RBC Hgb Hct MCHC RDW Plt Count Lymph % (Auto) [place] % (Auto) Lymph # (Auto) [place] # (Auto) Seg Neutrophils % Seg Neuts % (Manual) Lymphocytes % (Manual) Seg Neutrophils # Seg Neutrophils # Man Lymphocytes # (Manual) Monocytes # (Manual) Basophils # (Manual) APTT ABG pH 7.275 L POC ABG pCO2 POC ABG pO2 185.8 H ABG Hemoglobin 9.5 L ABG Oxyhemoglobin 98.6 H ABG Potassium 4.7 H ABG Glucose 330 H Carboxyhemoglobin 0.3 L Sodium Potassium Chloride Carbon Dioxide BUN Creatinine Glucose POC Glucose 307 H Hemoglobin A1c Lactic Acid Direct Bilirubin Troponin T NT-Pro-B Natriuret Pep Albumin LDL Cholesterol Direct Arterial Blood Glucose 330 H Urine WBC (Auto) 42.0 H Crossmatch 02/13/21 02/13/21 02/13/21 00:50 08:09 08:53 WBC RBC Hgb Hct MCHC RDW Plt Count Lymph % (Auto) [place] % (Auto) Lymph # (Auto) [place] # (Auto) Seg Neutrophils % Seg Neuts % (Manual) Lymphocytes % (Manual) Seg Neutrophils # Seg Neutrophils # Man Lymphocytes # (Manual) Monocytes # (Manual) Basophils # (Manual) APTT ABG pH POC ABG pCO2 POC ABG pO2 110.6 H ABG Hemoglobin 9.1 L ABG Oxyhemoglobin ABG Potassium 5.0 H ABG Glucose 338 H Carboxyhemoglobin 0.1 L Sodium Potassium Chloride Carbon Dioxide BUN Creatinine Glucose POC Glucose 278 H 289 H Hemoglobin A1c Lactic Acid Direct Bilirubin Troponin T NT-Pro-B Natriuret Pep Albumin LDL Cholesterol Direct Arterial Blood Glucose 338 H Urine WBC (Auto) Crossmatch 02/13/21 02/13/21 02/13/21 10:32 12:19 16:53 WBC RBC Hgb Hct MCHC RDW Plt Count Lymph % (Auto) [place] % (Auto) Lymph # (Auto) [place] # (Auto) Seg Neutrophils % Seg Neuts % (Manual) Lymphocytes % (Manual) Seg Neutrophils # Seg Neutrophils # Man Lymphocytes # (Manual) Monocytes # (Manual) Basophils # (Manual) APTT ABG pH POC ABG pCO2 POC ABG pO2 ABG Hemoglobin ABG Oxyhemoglobin ABG Potassium ABG Glucose Carboxyhemoglobin Sodium Potassium Chloride Carbon Dioxide BUN Creatinine Glucose POC Glucose 295 H 268 H Hemoglobin A1c Lactic Acid Direct Bilirubin Troponin T 0.069 H D NT-Pro-B Natriuret Pep Albumin LDL Cholesterol Direct Arterial Blood Glucose Urine WBC (Auto) Crossmatch 02/13/21 02/13/21 02/13/21 18:00 21:30 Unknown WBC 24.8 H RBC 2.99 L Hgb 8.3 L Hct 26.8 L MCHC RDW 16.4 H Plt Count Lymph % (Auto) [place] % (Auto) Lymph # (Auto) [place] # (Auto) Seg Neutrophils % Seg Neuts % (Manual) 98.0 H Lymphocytes % (Manual) Seg Neutrophils # Seg Neutrophils # Man 24.3 H Lymphocytes # (Manual) 0.0 L Monocytes # (Manual) Basophils # (Manual) APTT ABG pH POC ABG pCO2 POC ABG pO2 ABG Hemoglobin ABG Oxyhemoglobin ABG Potassium ABG Glucose Carboxyhemoglobin Sodium Potassium Chloride Carbon Dioxide BUN Creatinine Glucose POC Glucose 258 H Hemoglobin A1c Lactic Acid Direct Bilirubin Troponin T 0.051 H D NT-Pro-B Natriuret Pep Albumin LDL Cholesterol Direct Arterial Blood Glucose Urine WBC (Auto) Crossmatch 02/13/21 02/13/21 02/14/21 Unknown Unknown 07:11 WBC RBC Hgb Hct MCHC RDW Plt Count Lymph % (Auto) [place] % (Auto) Lymph # (Auto) [place] # (Auto) Seg Neutrophils % Seg Neuts % (Manual) Lymphocytes % (Manual) Seg Neutrophils # Seg Neutrophils # Man Lymphocytes # (Manual) Monocytes # (Manual) Basophils # (Manual) APTT ABG pH POC ABG pCO2 POC ABG pO2 ABG Hemoglobin ABG Oxyhemoglobin ABG Potassium ABG Glucose Carboxyhemoglobin Sodium Potassium 5.2 H Chloride Carbon Dioxide BUN 29 H Creatinine 2.2 H Glucose 331 H POC Glucose 244 H Hemoglobin A1c 7.0 H Lactic Acid Direct Bilirubin Troponin T NT-Pro-B Natriuret Pep Albumin 3.1 L LDL Cholesterol Direct Arterial Blood Glucose Urine WBC (Auto) Crossmatch 02/14/21 02/14/21 02/14/21 07:49 07:49 11:37 WBC 25.1 H RBC 2.99 L Hgb 8.5 L Hct 26.6 L MCHC RDW 16.3 H Plt Count Lymph % (Auto) [place] % (Auto) Lymph # (Auto) [place] # (Auto) Seg Neutrophils % Seg Neuts % (Manual) Lymphocytes % (Manual) Seg Neutrophils # Seg Neutrophils # Man Lymphocytes # (Manual) Monocytes # (Manual) Basophils # (Manual) APTT ABG pH POC ABG pCO2 POC ABG pO2 ABG Hemoglobin ABG Oxyhemoglobin ABG Potassium ABG Glucose Carboxyhemoglobin Sodium Potassium Chloride Carbon Dioxide BUN 39 H Creatinine 2.1 H Glucose 253 H POC Glucose 229 H Hemoglobin A1c Lactic Acid Direct Bilirubin Troponin T NT-Pro-B Natriuret Pep Albumin LDL Cholesterol Direct Arterial Blood Glucose Urine WBC (Auto) Crossmatch 02/14/21 02/14/21 02/15/21 17:04 21:25 05:50 WBC 14.4 H RBC 2.69 L Hgb 7.4 L Hct 24.0 L MCHC RDW 16.3 H Plt Count Lymph % (Auto) [place] % (Auto) Lymph # (Auto) [place] # (Auto) Seg Neutrophils % Seg Neuts % (Manual) Lymphocytes % (Manual) Seg Neutrophils # Seg Neutrophils # Man Lymphocytes # (Manual) Monocytes # (Manual) Basophils # (Manual) APTT ABG pH POC ABG pCO2 POC ABG pO2 ABG Hemoglobin ABG Oxyhemoglobin ABG Potassium ABG Glucose Carboxyhemoglobin Sodium Potassium Chloride Carbon Dioxide BUN Creatinine Glucose POC Glucose 141 H 121 H Hemoglobin A1c Lactic Acid Direct Bilirubin Troponin T NT-Pro-B Natriuret Pep Albumin LDL Cholesterol Direct Arterial Blood Glucose Urine WBC (Auto) Crossmatch 02/15/21 02/15/21 02/15/21 05:50 07:35 09:09 WBC RBC Hgb Hct MCHC RDW Plt Count Lymph % (Auto) [place] % (Auto) Lymph # (Auto) [place] # (Auto) Seg Neutrophils % Seg Neuts % (Manual) Lymphocytes % (Manual) Seg Neutrophils # Seg Neutrophils # Man Lymphocytes # (Manual) Monocytes # (Manual) Basophils # (Manual) APTT ABG pH 7.272 L POC ABG pCO2 53.9 H POC ABG pO2 78.7 L ABG Hemoglobin 8.8 L ABG Oxyhemoglobin 93.0 L ABG Potassium ABG Glucose 197 H Carboxyhemoglobin 1.8 H Sodium Potassium Chloride 107.1 H Carbon Dioxide BUN 44 H Creatinine 2.3 H Glucose 162 H POC Glucose 182 H Hemoglobin A1c Lactic Acid Direct Bilirubin Troponin T NT-Pro-B Natriuret Pep Albumin LDL Cholesterol Direct Arterial Blood Glucose 197 H Urine WBC (Auto) Crossmatch 02/15/21 02/15/21 02/15/21 11:30 11:40 16:07 WBC RBC Hgb Hct MCHC RDW Plt Count Lymph % (Auto) [place] % (Auto) Lymph # (Auto) [place] # (Auto) Seg Neutrophils % Seg Neuts % (Manual) Lymphocytes % (Manual) Seg Neutrophils # Seg Neutrophils # Man Lymphocytes # (Manual) Monocytes # (Manual) Basophils # (Manual) APTT ABG pH POC ABG pCO2 POC ABG pO2 ABG Hemoglobin ABG Oxyhemoglobin ABG Potassium ABG Glucose Carboxyhemoglobin Sodium Potassium Chloride Carbon Dioxide BUN Creatinine Glucose POC Glucose 160 H 142 H Hemoglobin A1c Lactic Acid Direct Bilirubin Troponin T NT-Pro-B Natriuret Pep Albumin LDL Cholesterol Direct Arterial Blood Glucose Urine WBC (Auto) Crossmatch See Detail 02/15/21 02/16/21 02/16/21 21:52 08:09 11:51 WBC RBC Hgb Hct MCHC RDW Plt Count Lymph % (Auto) [place] % (Auto) Lymph # (Auto) [place] # (Auto) Seg Neutrophils % Seg Neuts % (Manual) Lymphocytes % (Manual) Seg Neutrophils # Seg Neutrophils # Man Lymphocytes # (Manual) Monocytes # (Manual) Basophils # (Manual) APTT ABG pH POC ABG pCO2 POC ABG pO2 ABG Hemoglobin ABG Oxyhemoglobin ABG Potassium ABG Glucose Carboxyhemoglobin Sodium Potassium Chloride Carbon Dioxide BUN Creatinine Glucose POC Glucose 143 H 167 H 186 H Hemoglobin A1c Lactic Acid Direct Bilirubin Troponin T NT-Pro-B Natriuret Pep Albumin LDL Cholesterol Direct Arterial Blood Glucose Urine WBC (Auto) Crossmatch 02/16/21 02/16/21 02/16/21 14:45 14:45 16:29 WBC 15.4 H RBC 3.11 L Hgb 9.1 L Hct 27.8 L MCHC RDW 15.9 H Plt Count Lymph % (Auto) 3.6 L [place] % (Auto) 9.0 H Lymph # (Auto) 0.6 L [place] # (Auto) 1.4 H Seg Neutrophils % 87.3 H Seg Neuts % (Manual) Lymphocytes % (Manual) Seg Neutrophils # 13.4 H Seg Neutrophils # Man Lymphocytes # (Manual) Monocytes # (Manual) Basophils # (Manual) APTT ABG pH POC ABG pCO2 POC ABG pO2 ABG Hemoglobin ABG Oxyhemoglobin ABG Potassium ABG Glucose Carboxyhemoglobin Sodium Potassium Chloride Carbon Dioxide BUN 53 H Creatinine 2.5 H Glucose 201 H POC Glucose 180 H Hemoglobin A1c Lactic Acid Direct Bilirubin Troponin T NT-Pro-B Natriuret Pep Albumin LDL Cholesterol Direct Arterial Blood Glucose Urine WBC (Auto) Crossmatch 02/16/21 02/17/21 02/17/21 21:33 05:38 05:38 WBC 13.4 H RBC 2.91 L Hgb 8.4 L Hct 25.7 L MCHC RDW 15.8 H Plt Count Lymph % (Auto) [place] % (Auto) Lymph # (Auto) [place] # (Auto) Seg Neutrophils % Seg Neuts % (Manual) Lymphocytes % (Manual) Seg Neutrophils # Seg Neutrophils # Man Lymphocytes # (Manual) Monocytes # (Manual) Basophils # (Manual) APTT ABG pH POC ABG pCO2 POC ABG pO2 ABG Hemoglobin ABG Oxyhemoglobin ABG Potassium ABG Glucose Carboxyhemoglobin Sodium 146 H Potassium Chloride 108.3 H Carbon Dioxide BUN 55 H Creatinine 2.5 H Glucose 169 H POC Glucose 164 H Hemoglobin A1c Lactic Acid Direct Bilirubin Troponin T NT-Pro-B Natriuret Pep Albumin LDL Cholesterol Direct Arterial Blood Glucose Urine WBC (Auto) Crossmatch 02/17/21 02/17/21 02/17/21 07:28 12:12 15:38 WBC RBC Hgb Hct MCHC RDW Plt Count Lymph % (Auto) [place] % (Auto) Lymph # (Auto) [place] # (Auto) Seg Neutrophils % Seg Neuts % (Manual) Lymphocytes % (Manual) Seg Neutrophils # Seg Neutrophils # Man Lymphocytes # (Manual) Monocytes # (Manual) Basophils # (Manual) APTT ABG pH POC ABG pCO2 POC ABG pO2 ABG Hemoglobin ABG Oxyhemoglobin ABG Potassium ABG Glucose Carboxyhemoglobin Sodium Potassium Chloride Carbon Dioxide BUN Creatinine Glucose POC Glucose 142 H 156 H 161 H Hemoglobin A1c Lactic Acid Direct Bilirubin Troponin T NT-Pro-B Natriuret Pep Albumin LDL Cholesterol Direct Arterial Blood Glucose Urine WBC (Auto) Crossmatch 02/17/21 02/18/21 02/18/21 21:42 07:10 07:10 WBC RBC 2.92 L Hgb 8.6 L Hct 26.0 L MCHC RDW 15.8 H Plt Count Lymph % (Auto) 5.8 L [place] % (Auto) Lymph # (Auto) 0.5 L [place] # (Auto) Seg Neutrophils % 86.6 H Seg Neuts % (Manual) Lymphocytes % (Manual) Seg Neutrophils # 8.0 H Seg Neutrophils # Man Lymphocytes # (Manual) Monocytes # (Manual) Basophils # (Manual) APTT ABG pH POC ABG pCO2 POC ABG pO2 ABG Hemoglobin ABG Oxyhemoglobin ABG Potassium ABG Glucose Carboxyhemoglobin Sodium 150 H Potassium Chloride 110.3 H Carbon Dioxide BUN 63 H Creatinine 2.5 H Glucose 168 H POC Glucose 131 H Hemoglobin A1c Lactic Acid Direct Bilirubin Troponin T 0.057 H NT-Pro-B Natriuret Pep Albumin LDL Cholesterol Direct Arterial Blood Glucose Urine WBC (Auto) Crossmatch 02/18/21 02/18/21 02/18/21 08:28 11:51 17:05 WBC RBC Hgb Hct MCHC RDW Plt Count Lymph % (Auto) [place] % (Auto) Lymph # (Auto) [place] # (Auto) Seg Neutrophils % Seg Neuts % (Manual) Lymphocytes % (Manual) Seg Neutrophils # Seg Neutrophils # Man Lymphocytes # (Manual) Monocytes # (Manual) Basophils # (Manual) APTT ABG pH POC ABG pCO2 POC ABG pO2 ABG Hemoglobin ABG Oxyhemoglobin ABG Potassium ABG Glucose Carboxyhemoglobin Sodium Potassium Chloride Carbon Dioxide BUN Creatinine Glucose POC Glucose 150 H 167 H 144 H Hemoglobin A1c Lactic Acid Direct Bilirubin Troponin T NT-Pro-B Natriuret Pep Albumin LDL Cholesterol Direct Arterial Blood Glucose Urine WBC (Auto) Crossmatch 02/18/21 02/19/21 02/19/21 21:47 05:20 07:52 WBC RBC Hgb Hct MCHC RDW Plt Count Lymph % (Auto) [place] % (Auto) Lymph # (Auto) [place] # (Auto) Seg Neutrophils % Seg Neuts % (Manual) Lymphocytes % (Manual) Seg Neutrophils # Seg Neutrophils # Man Lymphocytes # (Manual) Monocytes # (Manual) Basophils # (Manual) APTT ABG pH POC ABG pCO2 POC ABG pO2 ABG Hemoglobin ABG Oxyhemoglobin ABG Potassium ABG Glucose Carboxyhemoglobin Sodium 150 H Potassium Chloride 109.3 H Carbon Dioxide BUN 72 H Creatinine 2.8 H Glucose 222 H POC Glucose 155 H 221 H Hemoglobin A1c Lactic Acid Direct Bilirubin Troponin T NT-Pro-B Natriuret Pep Albumin LDL Cholesterol Direct Arterial Blood Glucose Urine WBC (Auto) Crossmatch 02/19/21 12:08 WBC RBC Hgb Hct MCHC RDW Plt Count Lymph % (Auto) [place] % (Auto) Lymph # (Auto) [place] # (Auto) Seg Neutrophils % Seg Neuts % (Manual) Lymphocytes % (Manual) Seg Neutrophils # Seg Neutrophils # Man Lymphocytes # (Manual) Monocytes # (Manual) Basophils # (Manual) APTT ABG pH POC ABG pCO2 POC ABG pO2 ABG Hemoglobin ABG Oxyhemoglobin ABG Potassium ABG Glucose Carboxyhemoglobin Sodium Potassium Chloride Carbon Dioxide BUN Creatinine Glucose POC Glucose 206 H Hemoglobin A1c Lactic Acid Direct Bilirubin Troponin T NT-Pro-B Natriuret Pep Albumin LDL Cholesterol Direct Arterial Blood Glucose Urine WBC (Auto) Crossmatch
[2021-02-19] MEDS: NORepinephrine/NS 8 MG-250 ML 8 MG/250 ML INFUS..BTL IV SCH (12:56)
[2021-02-19] MEDS ORDERED: DOBUTamine/D5W 500 MG/250 ML 500 MG/250 ML BAG IV SCH (13:00)
[2021-02-19] MEDS ORDERED: SODIUM CHLORIDE 0.9% 1000 ML 1,000 ML IV ONE (13:42)
--- NOTE | 2021-02-19 16:03 | Progress Note ---
Assessment and Plan This is a 62-year-old female with COPD, CHF, HTN, GERD, breast cancer, arthritis HLD, type 2 diabetes mellitus admitted s/p cardiac arrest with acute exacerbation of congestive heart failure, acute hypoxic respiratory failure, sepsis, acute kidney injury and electrolyte imbalances A/P --Acute hypoxic respiratory failure, Patient initiated on continuous BiPAP. Now intubated today Pulmonary critical care following, wean off from vent as tolerated --Acute metabolic encephalopathy -Fall/aspiration precautions -Reorientation as needed -02/12 CT head shows no acute intracranial abnormality -Likely due to severe hypoxia --S/p cardiac arrest -02/13 echocardiogram shows left ventricular function moderate to severely decreased, LVEF 20 to 25%, right ventricle systolic function normal, mitral valve annular calcification, thickened and calcified leaflets, mild to moderate mitral valve regurgitation, RVSP 11 mmHg, trace TR, large left pleural effusion with no pericardial effusion -Cardiology consulted, appreciate recommendations --Acute on chronic systolic heart failure -Cardiology consulted -Per cardiology 03/2018 echocardiogram showed ejection fraction of 45 to 50%, trace MR, trace TR -02/13 echocardiogram shows left ventricular function moderate to severely decreased, LVEF 20 to 25%, right ventricle systolic function normal, mitral valve annular calcification, thickened and calcified leaflets, mild to moderate mitral valve regurgitation, RVSP 11 mmHg, trace TR, large left pleural effusion with no pericardial effusion -IV lasix 40 mg twice daily milrinone per cardiology -strict I&O -asencio --Cardiogenic shock -Off Levophed -Blood pressure monitoring per protocol --Hypertension -Patient has a history of hypertension -Resume home antihypertenisive medication and titrate as needed --Elevated troponin/NSTEMI type II -Cardiology consulted -Likely due to cardiac arrest and renal failure -Trend trop --Hyperlipidemia -Resume home statin --Bilateral pleural effusions -evidenced on cxr -s/p lasix in ED -lasix IV, sprinolactone PO -Consider thoracentesis if no improvement in respiratory status and response to Lasix --Hyperkalemia, resolved -Status post Kayexalate -Trend potassium --Acute kidney injury, -Presented with a BUN/creatinine of 1.7/20, 02/13 BUN/creatinine 2.2/29 -Strict urine output -Avoid nephrotoxic medications -Renally dose medications -Daily weights -Nephrology consult --Hypernatremia, monitor BMP, continue IV fluid --Lactic acidosis, resolved -Presented with a lactic acid of 4.5, 7/2 lactic acid 0.8 --Sepsis -abx therapy -Presented with hypoxia, tachycardia, hypotension, leukocytosis -BC x2 pending -Tracheal aspirate pending --h/o Breast CA, need outpatient follow-up --DM type II -SSI, long acting insulin (titrate as needed) -Hbg A1C -Acccuchecks -Hypoglycemic protocol -CC consistent carbohydrate --Bilateral lower extremity skin lacerations -WOCN consulted -Wound care per nursing --Anxiety -Xanax prn --DVT prophylaxis, heparin The high probability of a clinically significant, sudden or life threatening deterioration of the [cardio/respiratory] system(s) required my full and direct attention, intervention and personal management. The aggregate critical care time was [35] minutes. This time is in addition to time spent performing reported procedures but includes the following: [x] Data Review and interpretation [x] Patient assessment and monitoring of vital signs [x] Documentation [x] Medication orders and managementdiet DVT/GI prophylaxis: PPI, SCDs to bilateral ultrasound in bed, heparin subcu Disposition: Continue care in ICU. Guarded prognosis Lines: CVL, asencio The high probability of a clinically significant, sudden or life threatening deterioration of the [WORSTED WINDER, CVS, pulmonary] system(s) required my full and direct attention, intervention and personal management. The aggregate critical care time was [37] minutes. This time is in addition to time spent performing reported procedures but includes the following: [x] Data Review and interpretation [x] Patient assessment and monitoring of vital signs [x] Documentation [x] Medication orders and management Brief history This is a 62-year-old female with COPD, CHF, HTN, GERD, breast cancer, arthritis HLD, type 2 diabetes mellitus who presented to the emergency department on 02/12 with complaints of severe shortness of breath and upon presentation patient assistance duration was 70% despite being on BiPAP and was electively intubated. After intubation patient had cardiac arrest with PEA and ACLS was initiated for approximately 5 minutes with achievement of ROSC. Patient later self extubated and was placed back on BiPAP. Work-up in the emergency department revealed leukocytosis, lactic acidosis, and CXR showed bilateral pleural effusions with pulmonary edema, elevated proBNP, elevated troponins. Patient was admitted to the hospital service s/p cardiac arrest, acute hypoxic respiratory failure, acute exacerbation of CHF and sepsis with consults to cardiology and [facility]. Daily clinical course: 02/13: Patient weaned to high flow nasal cannula, echocardiogram pending, Levophed titrated off, COVID-19 PCR negative 02/14: Patient was transferred to stepdown status, per cardiology patient received IV Lasix to help with pleural effusion seen on echocardiogram. Echocardiogram read with ejection fraction of 20 to 25%. Patient was started on Xanax to help with anxiety. Long-acting insulin increased due to persistent hyperglycemia 02/15: Patient placed back on BiPAP, started to have respiratory decompensation. Spoke with cardiology and pulmonology, will start milrinone, continue Lasix, low threshold for reintubation. 02/16: milrinone drip is running, continue 5: Patient seen and examined with at the bedside, patient continues to be very agitated, given sedation, low threshold for reintubation. Diuresis with Lasix. 02/17: Patient remains on continuous BiPAP and milrinone drip. She took off her BiPAP mask this morning which was immediately replaced by respiratory therapist. Patient remains lethargic and slightly restless. H&H remained stable, creatinine continue to trend up-consult nephrology, follow BMP. 02/18/21; patient on Bumex and milrinone drip. Also initiated on D5W at 30 mils per hour as patient unable to eat because she is on continuous BiPAP and sodium level 150 today, repeat BMP tomorrow. Poor prognosis 02/19/21: Patient intubated today and transferred to ICU. Continue to follow clinically, poor prognosis. Subjective Date of service: 02/19/21 Principal diagnosis: Pulmonary Edema Interval history: Patient seen and examined. Medical records and medication list reviewed. Vitals noted Patient intubated this morning and transferred to ICU Discussed plan of care at bedside with patient's RN and with critical care Objective - Exam Narrative Exam: GENERAL: Morbidly obese white female lying on bed intubated and sedated HEENT: Normocephalic. Atraumatic. No conjunctival congestion or icterus. Patient has moist mucous membranes. NECK: Supple. Trachea midline. CHEST/LUNGS: On mechanical ventilation, coarse breath sounds auscultated bilaterally HEART/CARDIOVASCULAR: Regular in rate and rhythm. S1 and S2 positive. ABDOMEN: Abdomen is soft, nontender. Patient has normal bowel sounds. SKIN: There is no rash. Warm and dry. NEURO: Sedated MUSCULOSKELETAL: No joint effusion or tenderness. EXTRIMITY: Lower extremity wound with a dry scaly skin, + edema PSYCH: Unable to assess - Constitutional Vitals: Vital Signs - 12hr 02/19/21 02/19/21 02/19/21 04:22 04:30 05:00 Pulse Rate 67 67 99 H Pulse Rate [ From Monitor] Respiratory 34 H 33 H 36 H Rate Blood Pressure 100/45 105/45 141/68 O2 Sat by Pulse 93 92 Oximetry 02/19/21 02/19/21 02/19/21 05:30 06:00 06:16 Pulse Rate 84 72 71 Pulse Rate [ From Monitor] Respiratory 34 H 35 H Rate Blood Pressure 139/59 108/44 109/47 O2 Sat by Pulse 91 91 Oximetry 02/19/21 02/19/21 02/19/21 06:30 07:00 07:30 Pulse Rate 109 H 88 80 Pulse Rate [ From Monitor] Respiratory 24 34 H 38 H Rate Blood Pressure 157/70 93/45 93/45 O2 Sat by Pulse 90 91 Oximetry 02/19/21 02/19/21 02/19/21 08:00 08:30 09:00 Pulse Rate 71 97 H 78 Pulse Rate [ 71 From Monitor] Respiratory 28 H 16 14 Rate Blood Pressure 112/39 112/39 104/45 O2 Sat by Pulse 96 96 95 Oximetry 02/19/21 02/19/21 02/19/21 09:03 09:30 10:00 Pulse Rate 98 H 112 H 98 H Pulse Rate [ From Monitor] Respiratory 34 H 13 14 Rate Blood Pressure 104/45 104/45 99/38 O2 Sat by Pulse 98 89 95 Oximetry 02/19/21 02/19/21 02/19/21 10:30 11:00 11:28 Pulse Rate 124 H 95 H 110 H Pulse Rate [ From Monitor] Respiratory 13 14 Rate Blood Pressure 105/46 95/45 209/89 O2 Sat by Pulse 96 97 99 Oximetry 02/19/21 02/19/21 02/19/21 11:30 12:00 12:30 Pulse Rate 106 H 89 82 Pulse Rate [ 81 From Monitor] Respiratory 21 22 22 Rate Blood Pressure 209/89 137/95 183/147 O2 Sat by Pulse 98 Oximetry 02/19/21 02/19/21 02/19/21 13:00 13:30 14:00 Pulse Rate 91 H 81 87 Pulse Rate [ From Monitor] Respiratory 22 22 22 Rate Blood Pressure 105/49 120/50 119/47 O2 Sat by Pulse 96 100 100 Oximetry 02/19/21 02/19/21 02/19/21 14:30 15:00 15:30 Pulse Rate 89 90 94 H Pulse Rate [ From Monitor] Respiratory 13 15 22 Rate Blood Pressure 120/53 127/54 122/53 O2 Sat by Pulse 98 97 97 Oximetry - Labs CBC & Chem 7: 02/22/21 04:00 02/23/21 04:00 Labs: Abnormal lab results 02/18/21 02/18/21 02/19/21 Range/Units 17:05 21:47 05:20 ABG Hemoglobin (12.0-17.5) ABG Chloride (98-107) mmol/L ABG Glucose (65-95) mg/dL Carboxyhemoglobin (0.5-1.5) Sodium 150 H (137-145) mmol/L Chloride 109.3 H (98-107) mmol/L BUN 72 H (7-17) mg/dL Creatinine 2.8 H (0.6-1.2) mg/dL Glucose 222 H (65-100) mg/dL POC Glucose 144 H 155 H (70-105) mg/dL Arterial Blood Glucose (65-95) mg/dL 02/19/21 02/19/21 02/19/21 Range/Units 07:52 11:36 12:08 ABG Hemoglobin 10.3 L (12.0-17.5) ABG Chloride 111.0 H (98-107) mmol/L ABG Glucose 217 H (65-95) mg/dL Carboxyhemoglobin 0.3 L (0.5-1.5) Sodium (137-145) mmol/L Chloride (98-107) mmol/L BUN (7-17) mg/dL Creatinine (0.6-1.2) mg/dL Glucose (65-100) mg/dL POC Glucose 221 H 206 H (70-105) mg/dL Arterial Blood Glucose 217 H (65-95) mg/dL HEART Score - HEART Score EKG: Non-specific Age: > 65 Risk factors: 1-2 risk factors Troponin: Troponin T 0.057 ng/mL (0.00-0.029) H 02/18/21 07:10 Troponin: < normal limit - Critical Actions Critical Actions: 4-6 pts:12-16.6% risk of adverse cardiac event. Should be admitted
--- NOTE | 2021-02-19 16:31 | Progress Note ---
Assessment and Plan Acute Respiratory Failure with pulmonary edema * Patient has been intubated per pulmonology after deterioration on CPAP. 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 LV is normal size. LV SF is moderate to severely decreased. Severe global hypokinesis of LV. RV SF is normal. Mild to moderate MR. RVSP is 11 mmHg. * GDMT as tolerated * Diuretics currently on hold due to hypotension. Will revisit once patient is hemodynamically stabilized. Paroxysmal A. fib in setting of anemia * Patient had episode of paroxysmal A. fib 140s on telemetry. Continue to monitor telemetry. If recurrent will need to balance benefit of AC versus risk of bleeding. ANGELA * No ACEI/ARB in setting of ANGELA. Avoid nephrotoxic agents Elevated troponin * Troponins are elevated, subacute and nonspecific. Trending downwards. Continue to trend CE's. We will follow This patient was seen in conjunction with Dr Alejandro who agrees with this assessment and plan of care - Patient Problems (1) Acute renal failure Current Visit: Yes Status: Acute Qualifiers: Acute renal failure type: with acute tubular necrosis Qualified Code(s): N17.0 - Acute kidney failure with tubular necrosis (2) Non-ST elevated myocardial infarction (non-STEMI) Current Visit: Yes Status: Acute (3) Acute exacerbation of CHF (congestive heart failure) Current Visit: Yes Status: Acute Qualifiers: Heart failure type: systolic Qualified Code(s): I50.23 - Acute on chronic systolic (congestive) heart failure (4) Acute heart failure Current Visit: Yes Status: Acute Qualifiers: Heart failure type: systolic Qualified Code(s): I50.21 - Acute systolic (congestive) heart failure (5) Acute respiratory failure with hypoxia Current Visit: Yes Status: Acute (6) Bilateral pleural effusion Current Visit: Yes Status: Acute (7) Sepsis Current Visit: Yes Status: Acute Qualifiers: Severe sepsis shock status: with septic shock (8) HLD (hyperlipidemia) Current Visit: Yes Status: Chronic Qualifiers: Hyperlipidemia type: mixed hyperlipidemia Qualified Code(s): E78.2 - Mixed hyperlipidemia (9) T2DM (type 2 diabetes mellitus) Current Visit: Yes Status: Chronic Qualifiers: Diabetes mellitus exterminator insulin use: with exterminator use Subjective Date of service: 02/19/21 Principal diagnosis: Pulmonary Edema Interval history: Patient is currently intubated and sedated. Telemetry reviewed: Sinus rhythm 87 with episode of A. fib RVR heart rate 140s. Objective Last Vital Signs Temp 97.8 F 02/19/21 04:00 Pulse 94 H 02/19/21 15:30 Resp 22 02/19/21 15:30 BP 122/53 02/19/21 15:30 Pulse Ox 97 02/19/21 15:30 - Physical Examination General: Other (accessory muscle in breathing) HEENT: Positive: EOMI, Normocephaly Neck: Positive: neck supple, trachea midline. Negative: JVD/HJR Cardiac: Positive: Reg Rate and Rhythm, S1/S2 Lungs: Positive: Ventilated Respirations Neuro: Positive: Other (Intubated sedated) Abdomen: Positive: Soft Skin: Negative: Rash Musculoskeletal: other (Intubated sedated) Extremities: Present: lower extr. pulses, edema (trace BLE), Other (chronic skin changes noted) - Labs and Meds Comprehensive Metabolic Panel 02/19/21 Range/Units 05:20 Sodium 150 H (137-145) mmol/L Potassium 3.7 (3.6-5.0) mmol/L Chloride 109.3 H (98-107) mmol/L Carbon Dioxide 26 (22-30) mmol/L BUN 72 H (7-17) mg/dL Creatinine 2.8 H (0.6-1.2) mg/dL Glucose 222 H (65-100) mg/dL Calcium 9.0 (8.4-10.2) mg/dL - Imaging and Cardiology EKG: report reviewed, image reviewed Echo: report reviewed (Echocardiogram reviewed (02/14/2021): LVEF is 20 to 25%. LV is normal size. LV SF is moderate to severely decreased. Severe global hypokinesis of LV. RV SF is normal. Mild to moderate MR. RVSP is 11 mmHg.), other (2018 - EF 45-50%, trace MR) - Telemetry EKG Rhythm: Sinus Rhythm - EKG Sinus rhythms and dysrhythmias: sinus rhythm Repolarization changes or abnormalities: nonspecific abnormality, ST segment, and/or T wave
--- NOTE | 2021-02-19 18:53 | XRay Report ---
ABDOMEN 1 VIEW 02/19/2021 5:46 PM INDICATION / CLINICAL INFORMATION: OG TUBE PLACEMENT CHECK. COMPARISON: None available. FINDINGS: TUBES / LINES: Esophagogastric tube projects over the distal stomach. BOWEL GAS PATTERN: No significant abnormality. FREE AIR / EXTRALUMINAL GAS: None. ADDITIONAL FINDINGS: No significant additional findings. IMPRESSION: 1. Esophagogastric tube in expected position. Signer Name: Louie Brand MD Signed: 02/19/2021 6:49 PM Workstation Name: [id number]
[2021-02-20] MEDS: METOPROLOL TARTRATE 5 MG/5 ML INJ IV SCH ×2 (00:20→06:47)
[2021-02-20] MEDS: NORepinephrine/NS 8 MG-250 ML 8 MG/250 ML INFUS..BTL IV SCH (03:08)
[2021-02-20 06:10] LABS: Hematocrit 26.9 % (30.3-42.9); Hemoglobin 8.6 gm/dl (10.1-14.3); Mean Corpuscular HGB Conc 32 % (30-34); Mean Corpuscular Volume 89 fl (79-97); Platelet Count 344 K/mm3 (140-440); Red Blood Count 3.04 M/mm3 (3.65-5.03); Red Cell Distribution Width 16.3 % (13.2-15.2)
[2021-02-20 06:52] LABS: Calcium 8.2 mg/dL (8.4-10.2)
[2021-02-20] MEDS: HEPARIN 5,000 UNIT/1 ML VIAL SUB-Q SCH (09:28)
[2021-02-20] MEDS: FAMOTIDINE 20 MG/2 ML INJ IV SCH (09:28)
[2021-02-20] MEDS: INSULIN GLARGINE 100 UNITS/ML SUB-Q SCH (09:29)
[2021-02-20] MEDS: ASPIRIN 81 MG TAB CHEW PO SCH (09:29)
[2021-02-20] MEDS: SENNOSIDES/DOCUSATE SODIUM 8.6/50 MG TAB FEEDTUBE SCH ×2 (09:29→21:16)
--- NOTE | 2021-02-20 10:40 | Progress Note ---
Assessment and Plan 71 y/o female with acute respiratory failure, cardiac arrest with subsequent ROSC and then self-extubation, now weaned to HFNC with bilateral pleural effusions, cardiomegaly and elevated BNP. 02/20/21: Will adjust rate to 18. Will place order for RT to do so. Spoke with renal and await there assessment in regards to need of dialysis or not. Patient is still making urine. Electrolyte (Potassium) is stable. Would hold on further diuretic therapy for now. Pressors off. Maintain sedation for RASS of 0. Very very guarded prognosis. 02/19/21: Intubated and now sedated. Spoke with cards and they agree with using dobutamine. Will start at 5 and titrate as needed. May need to consider bronch but I feel this is all pulmonary edema. monitor temperature curve. Place NG tube and feed patient. Guarded prognosis. 02/18/21: Continue precedex. Wish that patient could have tolerated inotropic therapy as I feel this would benefit her the most. Will ask cards about it again. need to place patient on D5W at KVO given she is not eating and increases in Na. Wean FiO2 as tolerated. 02/17/21: Stopped pulmicort and brovana, no history of COPD. Will add precedex today. If HR improves may need to use dobuatmine as opposed to milrione but will defer to cards. If patient does not improve with precedex may need to re- intubate. Attempted to switch as many meds to IV as possible given continuous bipap. Would prefer not to have on that with continuous bipap. CXR this am shows stable pulmonary edema. Guard prognosis. 02/15/21: hopeful inotropes will help with volume removal as well as improve renal function. Hold on intubation right now. Continue to wean FiO2 as tolerated for sats >88%. Very very guarded prognosis. 02/14/21: Agree with diuresis, renal function should improve with this. Will see how she responds to this. If effusions don't lessen, may need thora on Tuesday/Tuesday. Also may need to consider inotropic support if she doesn't respond well to lasix. High risk for Ventricular Arrhythmia. Continue step down monitoring. Hopeful can wean HFNC with fluid removal. Also should accept MAPS of 55-60 as she likely lives in a low flow state. 1. Follow up ECHO 2. Agree with obtaining results/records from [facility] 3. Wean Vasopressors for MAPS>60 and normal mentation. 4. Would hold all antihypertensive and rate control meds until off vasopressor therapy. 5. If able to be weaned off pressors, can likely go to step down unit. WIll continue to monitor and follow CCT 31 minutes Subjective Date of service: 02/20/21 Principal diagnosis: Pulmonary Edema Interval history: Dobutamine not started on yesterday. BP better. Sedated on diprovan 20. Low UOP overnight but still making urine. BUN and CR worse today. K is stable. has some respiratory alkalosis on ABG this am. Objective Vital Signs - 12hr 02/19/21 02/19/21 02/19/21 23:00 23:20 23:27 Temperature 98.1 F Pulse Rate 96 H 90 Pulse Rate [ From Monitor] Respiratory 17 Rate Blood Pressure 112/54 124/49 O2 Sat by Pulse 98 99 Oximetry 02/19/21 02/20/21 02/20/21 23:30 00:00 00:02 Temperature Pulse Rate 85 96 H 90 Pulse Rate [ 96 H From Monitor] Respiratory 17 22 17 Rate Blood Pressure 123/51 126/50 126/50 O2 Sat by Pulse 98 99 99 Oximetry 02/20/21 02/20/21 02/20/21 00:30 01:00 01:30 Temperature Pulse Rate 93 H 91 H 92 H Pulse Rate [ From Monitor] Respiratory 20 22 21 Rate Blood Pressure 140/50 124/55 121/53 O2 Sat by Pulse 98 99 99 Oximetry 02/20/21 02/20/21 02/20/21 02:00 02:30 02:59 Temperature 98.6 F Pulse Rate 99 H 89 Pulse Rate [ From Monitor] Respiratory 22 22 Rate Blood Pressure 125/56 134/48 O2 Sat by Pulse 98 98 Oximetry 02/20/21 02/20/21 02/20/21 03:00 03:30 04:00 Temperature Pulse Rate 84 84 79 Pulse Rate [ 91 H From Monitor] Respiratory 22 22 22 Rate Blood Pressure 120/51 119/48 110/46 O2 Sat by Pulse 98 98 100 Oximetry 02/20/21 02/20/21 02/20/21 04:09 04:30 05:00 Temperature Pulse Rate 92 H 82 85 Pulse Rate [ From Monitor] Respiratory 22 22 Rate Blood Pressure 102/55 117/48 116/47 O2 Sat by Pulse 100 99 90 Oximetry 02/20/21 02/20/21 02/20/21 05:30 06:00 06:30 Temperature Pulse Rate 81 82 81 Pulse Rate [ From Monitor] Respiratory 22 22 22 Rate Blood Pressure 122/50 111/42 108/46 O2 Sat by Pulse 93 95 95 Oximetry 02/20/21 02/20/21 02/20/21 07:00 07:12 07:30 Temperature Pulse Rate 80 79 85 Pulse Rate [ From Monitor] Respiratory 22 22 Rate Blood Pressure 119/47 114/49 119/51 O2 Sat by Pulse 96 96 95 Oximetry 02/20/21 02/20/21 02/20/21 08:00 08:22 08:30 Temperature 98.5 F Pulse Rate 79 78 Pulse Rate [ 81 From Monitor] Respiratory 22 22 Rate Blood Pressure 126/51 122/49 O2 Sat by Pulse 97 97 Oximetry 02/20/21 02/20/21 02/20/21 09:00 09:30 10:00 Temperature Pulse Rate 87 81 83 Pulse Rate [ From Monitor] Respiratory 22 22 22 Rate Blood Pressure 131/43 129/47 138/57 O2 Sat by Pulse 98 98 97 Oximetry Constitutional: other (critically ill on BIPAP) Eyes: non-icteric ENT: oropharynx moist Neck: supple Effort: mildly labored Ascultation: Bilateral: diminished breath sounds Cardiovascular: other (tachy, RR; no mrg) Gastrointestinal: normoactive bowel sounds, soft, non-tender, non-distended Integumentary: normal Extremities: no cyanosis, no edema, pink and warm Neurologic: normal mental status, non-focal exam Psychiatric: mood appropriate, affect normal CBC and BMP: 02/20/21 05:45 02/20/21 05:45 ABG, PT/INR, D-dimer: ABG ABG pH 7.480 (7.320-7.450) H 02/20/21 03:17 POC ABG pCO2 31.3 mmHg (32.0-48.0) L 02/20/21 03:17 POC ABG pO2 194.3 mmHg (83-108) H 02/20/21 03:17 POC ABG HCO3 22.8 02/20/21 03:17 ABG O2 Saturation 99.5 (0-100) 02/20/21 03:17 PT/INR, D-dimer PT 13.8 Sec. (12.2-14.9) 02/12/21 12:20 INR 1.01 (0.87-1.13) 02/12/21 12:20 Abnormal lab findings: Abnormal Labs 02/12/21 02/12/21 02/12/21 10:45 11:59 12:20 WBC RBC Hgb Hct MCHC RDW Plt Count Lymph % (Auto) [place] % (Auto) Lymph # (Auto) [place] # (Auto) Seg Neutrophils % Seg Neuts % (Manual) Lymphocytes % (Manual) Seg Neutrophils # Seg Neutrophils # Man Lymphocytes # (Manual) Monocytes # (Manual) Basophils # (Manual) APTT ABG pH 7.265 L POC ABG pCO2 49.9 H POC ABG pO2 168.3 H ABG Hemoglobin 10.1 L ABG Oxyhemoglobin 98.5 H ABG Potassium ABG Chloride ABG Glucose 330 H Carboxyhemoglobin 0.3 L Sodium Potassium Chloride Carbon Dioxide BUN Creatinine Glucose POC Glucose 291 H Hemoglobin A1c Lactic Acid Calcium Direct Bilirubin Troponin T 0.058 H NT-Pro-B Natriuret Pep Albumin LDL Cholesterol Direct Arterial Blood Glucose 330 H Urine WBC (Auto) Crossmatch 02/12/21 02/12/21 02/12/21 12:20 12:20 12:20 WBC RBC Hgb Hct MCHC RDW Plt Count Lymph % (Auto) [place] % (Auto) Lymph # (Auto) [place] # (Auto) Seg Neutrophils % Seg Neuts % (Manual) Lymphocytes % (Manual) Seg Neutrophils # Seg Neutrophils # Man Lymphocytes # (Manual) Monocytes # (Manual) Basophils # (Manual) APTT 22.9 L ABG pH POC ABG pCO2 POC ABG pO2 ABG Hemoglobin ABG Oxyhemoglobin ABG Potassium ABG Chloride ABG Glucose Carboxyhemoglobin Sodium Potassium Chloride Carbon Dioxide 21 L BUN 20 H Creatinine 1.7 H Glucose 278 H POC Glucose Hemoglobin A1c Lactic Acid 4.50 H* Calcium Direct Bilirubin 0.3 H Troponin T 0.056 H NT-Pro-B Natriuret Pep Albumin 3.4 L LDL Cholesterol Direct 40 L Arterial Blood Glucose Urine WBC (Auto) Crossmatch 02/12/21 02/12/21 02/12/21 12:20 14:25 16:46 WBC 30.4 H RBC 3.34 L Hgb 9.2 L Hct MCHC 29 L RDW 17.0 H Plt Count 458 H Lymph % (Auto) [place] % (Auto) Lymph # (Auto) [place] # (Auto) Seg Neutrophils % Seg Neuts % (Manual) 90.5 H Lymphocytes % (Manual) 0.5 L Seg Neutrophils # Seg Neutrophils # Man 27.5 H Lymphocytes # (Manual) 0.2 L Monocytes # (Manual) 1.8 H Basophils # (Manual) 0.2 H APTT ABG pH POC ABG pCO2 POC ABG pO2 ABG Hemoglobin ABG Oxyhemoglobin ABG Potassium ABG Chloride ABG Glucose Carboxyhemoglobin Sodium Potassium Chloride Carbon Dioxide BUN Creatinine Glucose POC Glucose Hemoglobin A1c Lactic Acid 4.50 H* Calcium Direct Bilirubin Troponin T NT-Pro-B Natriuret Pep 6717 H Albumin LDL Cholesterol Direct Arterial Blood Glucose Urine WBC (Auto) Crossmatch 02/12/21 02/12/21 02/12/21 16:56 20:35 Unknown WBC RBC Hgb Hct MCHC RDW Plt Count Lymph % (Auto) [place] % (Auto) Lymph # (Auto) [place] # (Auto) Seg Neutrophils % Seg Neuts % (Manual) Lymphocytes % (Manual) Seg Neutrophils # Seg Neutrophils # Man Lymphocytes # (Manual) Monocytes # (Manual) Basophils # (Manual) APTT ABG pH 7.275 L POC ABG pCO2 POC ABG pO2 185.8 H ABG Hemoglobin 9.5 L ABG Oxyhemoglobin 98.6 H ABG Potassium 4.7 H ABG Chloride ABG Glucose 330 H Carboxyhemoglobin 0.3 L Sodium Potassium Chloride Carbon Dioxide BUN Creatinine Glucose POC Glucose 307 H Hemoglobin A1c Lactic Acid Calcium Direct Bilirubin Troponin T NT-Pro-B Natriuret Pep Albumin LDL Cholesterol Direct Arterial Blood Glucose 330 H Urine WBC (Auto) 42.0 H Crossmatch 02/13/21 02/13/21 02/13/21 00:50 08:09 08:53 WBC RBC Hgb Hct MCHC RDW Plt Count Lymph % (Auto) [place] % (Auto) Lymph # (Auto) [place] # (Auto) Seg Neutrophils % Seg Neuts % (Manual) Lymphocytes % (Manual) Seg Neutrophils # Seg Neutrophils # Man Lymphocytes # (Manual) Monocytes # (Manual) Basophils # (Manual) APTT ABG pH POC ABG pCO2 POC ABG pO2 110.6 H ABG Hemoglobin 9.1 L ABG Oxyhemoglobin ABG Potassium 5.0 H ABG Chloride ABG Glucose 338 H Carboxyhemoglobin 0.1 L Sodium Potassium Chloride Carbon Dioxide BUN Creatinine Glucose POC Glucose 278 H 289 H Hemoglobin A1c Lactic Acid Calcium Direct Bilirubin Troponin T NT-Pro-B Natriuret Pep Albumin LDL Cholesterol Direct Arterial Blood Glucose 338 H Urine WBC (Auto) Crossmatch 02/13/21 02/13/21 02/13/21 10:32 12:19 16:53 WBC RBC Hgb Hct MCHC RDW Plt Count Lymph % (Auto) [place] % (Auto) Lymph # (Auto) [place] # (Auto) Seg Neutrophils % Seg Neuts % (Manual) Lymphocytes % (Manual) Seg Neutrophils # Seg Neutrophils # Man Lymphocytes # (Manual) Monocytes # (Manual) Basophils # (Manual) APTT ABG pH POC ABG pCO2 POC ABG pO2 ABG Hemoglobin ABG Oxyhemoglobin ABG Potassium ABG Chloride ABG Glucose Carboxyhemoglobin Sodium Potassium Chloride Carbon Dioxide BUN Creatinine Glucose POC Glucose 295 H 268 H Hemoglobin A1c Lactic Acid Calcium Direct Bilirubin Troponin T 0.069 H D NT-Pro-B Natriuret Pep Albumin LDL Cholesterol Direct Arterial Blood Glucose Urine WBC (Auto) Crossmatch 02/13/21 02/13/21 02/13/21 18:00 21:30 Unknown WBC 24.8 H RBC 2.99 L Hgb 8.3 L Hct 26.8 L MCHC RDW 16.4 H Plt Count Lymph % (Auto) [place] % (Auto) Lymph # (Auto) [place] # (Auto) Seg Neutrophils % Seg Neuts % (Manual) 98.0 H Lymphocytes % (Manual) Seg Neutrophils # Seg Neutrophils # Man 24.3 H Lymphocytes # (Manual) 0.0 L Monocytes # (Manual) Basophils # (Manual) APTT ABG pH POC ABG pCO2 POC ABG pO2 ABG Hemoglobin ABG Oxyhemoglobin ABG Potassium ABG Chloride ABG Glucose Carboxyhemoglobin Sodium Potassium Chloride Carbon Dioxide BUN Creatinine Glucose POC Glucose 258 H Hemoglobin A1c Lactic Acid Calcium Direct Bilirubin Troponin T 0.051 H D NT-Pro-B Natriuret Pep Albumin LDL Cholesterol Direct Arterial Blood Glucose Urine WBC (Auto) Crossmatch 02/13/21 02/13/21 02/14/21 Unknown Unknown 07:11 WBC RBC Hgb Hct MCHC RDW Plt Count Lymph % (Auto) [place] % (Auto) Lymph # (Auto) [place] # (Auto) Seg Neutrophils % Seg Neuts % (Manual) Lymphocytes % (Manual) Seg Neutrophils # Seg Neutrophils # Man Lymphocytes # (Manual) Monocytes # (Manual) Basophils # (Manual) APTT ABG pH POC ABG pCO2 POC ABG pO2 ABG Hemoglobin ABG Oxyhemoglobin ABG Potassium ABG Chloride ABG Glucose Carboxyhemoglobin Sodium Potassium 5.2 H Chloride Carbon Dioxide BUN 29 H Creatinine 2.2 H Glucose 331 H POC Glucose 244 H Hemoglobin A1c 7.0 H Lactic Acid Calcium Direct Bilirubin Troponin T NT-Pro-B Natriuret Pep Albumin 3.1 L LDL Cholesterol Direct Arterial Blood Glucose Urine WBC (Auto) Crossmatch 02/14/21 02/14/21 02/14/21 07:49 07:49 11:37 WBC 25.1 H RBC 2.99 L Hgb 8.5 L Hct 26.6 L MCHC RDW 16.3 H Plt Count Lymph % (Auto) [place] % (Auto) Lymph # (Auto) [place] # (Auto) Seg Neutrophils % Seg Neuts % (Manual) Lymphocytes % (Manual) Seg Neutrophils # Seg Neutrophils # Man Lymphocytes # (Manual) Monocytes # (Manual) Basophils # (Manual) APTT ABG pH POC ABG pCO2 POC ABG pO2 ABG Hemoglobin ABG Oxyhemoglobin ABG Potassium ABG Chloride ABG Glucose Carboxyhemoglobin Sodium Potassium Chloride Carbon Dioxide BUN 39 H Creatinine 2.1 H Glucose 253 H POC Glucose 229 H Hemoglobin A1c Lactic Acid Calcium Direct Bilirubin Troponin T NT-Pro-B Natriuret Pep Albumin LDL Cholesterol Direct Arterial Blood Glucose Urine WBC (Auto) Crossmatch 02/14/21 02/14/21 02/15/21 17:04 21:25 05:50 WBC 14.4 H RBC 2.69 L Hgb 7.4 L Hct 24.0 L MCHC RDW 16.3 H Plt Count Lymph % (Auto) [place] % (Auto) Lymph # (Auto) [place] # (Auto) Seg Neutrophils % Seg Neuts % (Manual) Lymphocytes % (Manual) Seg Neutrophils # Seg Neutrophils # Man Lymphocytes # (Manual) Monocytes # (Manual) Basophils # (Manual) APTT ABG pH POC ABG pCO2 POC ABG pO2 ABG Hemoglobin ABG Oxyhemoglobin ABG Potassium ABG Chloride ABG Glucose Carboxyhemoglobin Sodium Potassium Chloride Carbon Dioxide BUN Creatinine Glucose POC Glucose 141 H 121 H Hemoglobin A1c Lactic Acid Calcium Direct Bilirubin Troponin T NT-Pro-B Natriuret Pep Albumin LDL Cholesterol Direct Arterial Blood Glucose Urine WBC (Auto) Crossmatch 02/15/21 02/15/21 02/15/21 05:50 07:35 09:09 WBC RBC Hgb Hct MCHC RDW Plt Count Lymph % (Auto) [place] % (Auto) Lymph # (Auto) [place] # (Auto) Seg Neutrophils % Seg Neuts % (Manual) Lymphocytes % (Manual) Seg Neutrophils # Seg Neutrophils # Man Lymphocytes # (Manual) Monocytes # (Manual) Basophils # (Manual) APTT ABG pH 7.272 L POC ABG pCO2 53.9 H POC ABG pO2 78.7 L ABG Hemoglobin 8.8 L ABG Oxyhemoglobin 93.0 L ABG Potassium ABG Chloride ABG Glucose 197 H Carboxyhemoglobin 1.8 H Sodium Potassium Chloride 107.1 H Carbon Dioxide BUN 44 H Creatinine 2.3 H Glucose 162 H POC Glucose 182 H Hemoglobin A1c Lactic Acid Calcium Direct Bilirubin Troponin T NT-Pro-B Natriuret Pep Albumin LDL Cholesterol Direct Arterial Blood Glucose 197 H Urine WBC (Auto) Crossmatch 02/15/21 02/15/21 02/15/21 11:30 11:40 16:07 WBC RBC Hgb Hct MCHC RDW Plt Count Lymph % (Auto) [place] % (Auto) Lymph # (Auto) [place] # (Auto) Seg Neutrophils % Seg Neuts % (Manual) Lymphocytes % (Manual) Seg Neutrophils # Seg Neutrophils # Man Lymphocytes # (Manual) Monocytes # (Manual) Basophils # (Manual) APTT ABG pH POC ABG pCO2 POC ABG pO2 ABG Hemoglobin ABG Oxyhemoglobin ABG Potassium ABG Chloride ABG Glucose Carboxyhemoglobin Sodium Potassium Chloride Carbon Dioxide BUN Creatinine Glucose POC Glucose 160 H 142 H Hemoglobin A1c Lactic Acid Calcium Direct Bilirubin Troponin T NT-Pro-B Natriuret Pep Albumin LDL Cholesterol Direct Arterial Blood Glucose Urine WBC (Auto) Crossmatch See Detail 02/15/21 02/16/21 02/16/21 21:52 08:09 11:51 WBC RBC Hgb Hct MCHC RDW Plt Count Lymph % (Auto) [place] % (Auto) Lymph # (Auto) [place] # (Auto) Seg Neutrophils % Seg Neuts % (Manual) Lymphocytes % (Manual) Seg Neutrophils # Seg Neutrophils # Man Lymphocytes # (Manual) Monocytes # (Manual) Basophils # (Manual) APTT ABG pH POC ABG pCO2 POC ABG pO2 ABG Hemoglobin ABG Oxyhemoglobin ABG Potassium ABG Chloride ABG Glucose Carboxyhemoglobin Sodium Potassium Chloride Carbon Dioxide BUN Creatinine Glucose POC Glucose 143 H 167 H 186 H Hemoglobin A1c Lactic Acid Calcium Direct Bilirubin Troponin T NT-Pro-B Natriuret Pep Albumin LDL Cholesterol Direct Arterial Blood Glucose Urine WBC (Auto) Crossmatch 02/16/21 02/16/21 02/16/21 14:45 14:45 16:29 WBC 15.4 H RBC 3.11 L Hgb 9.1 L Hct 27.8 L MCHC RDW 15.9 H Plt Count Lymph % (Auto) 3.6 L [place] % (Auto) 9.0 H Lymph # (Auto) 0.6 L [place] # (Auto) 1.4 H Seg Neutrophils % 87.3 H Seg Neuts % (Manual) Lymphocytes % (Manual) Seg Neutrophils # 13.4 H Seg Neutrophils # Man Lymphocytes # (Manual) Monocytes # (Manual) Basophils # (Manual) APTT ABG pH POC ABG pCO2 POC ABG pO2 ABG Hemoglobin ABG Oxyhemoglobin ABG Potassium ABG Chloride ABG Glucose Carboxyhemoglobin Sodium Potassium Chloride Carbon Dioxide BUN 53 H Creatinine 2.5 H Glucose 201 H POC Glucose 180 H Hemoglobin A1c Lactic Acid Calcium Direct Bilirubin Troponin T NT-Pro-B Natriuret Pep Albumin LDL Cholesterol Direct Arterial Blood Glucose Urine WBC (Auto) Crossmatch 02/16/21 02/17/21 02/17/21 21:33 05:38 05:38 WBC 13.4 H RBC 2.91 L Hgb 8.4 L Hct 25.7 L MCHC RDW 15.8 H Plt Count Lymph % (Auto) [place] % (Auto) Lymph # (Auto) [place] # (Auto) Seg Neutrophils % Seg Neuts % (Manual) Lymphocytes % (Manual) Seg Neutrophils # Seg Neutrophils # Man Lymphocytes # (Manual) Monocytes # (Manual) Basophils # (Manual) APTT ABG pH POC ABG pCO2 POC ABG pO2 ABG Hemoglobin ABG Oxyhemoglobin ABG Potassium ABG Chloride ABG Glucose Carboxyhemoglobin Sodium 146 H Potassium Chloride 108.3 H Carbon Dioxide BUN 55 H Creatinine 2.5 H Glucose 169 H POC Glucose 164 H Hemoglobin A1c Lactic Acid Calcium Direct Bilirubin Troponin T NT-Pro-B Natriuret Pep Albumin LDL Cholesterol Direct Arterial Blood Glucose Urine WBC (Auto) Crossmatch 02/17/21 02/17/21 02/17/21 07:28 12:12 15:38 WBC RBC Hgb Hct MCHC RDW Plt Count Lymph % (Auto) [place] % (Auto) Lymph # (Auto) [place] # (Auto) Seg Neutrophils % Seg Neuts % (Manual) Lymphocytes % (Manual) Seg Neutrophils # Seg Neutrophils # Man Lymphocytes # (Manual) Monocytes # (Manual) Basophils # (Manual) APTT ABG pH POC ABG pCO2 POC ABG pO2 ABG Hemoglobin ABG Oxyhemoglobin ABG Potassium ABG Chloride ABG Glucose Carboxyhemoglobin Sodium Potassium Chloride Carbon Dioxide BUN Creatinine Glucose POC Glucose 142 H 156 H 161 H Hemoglobin A1c Lactic Acid Calcium Direct Bilirubin Troponin T NT-Pro-B Natriuret Pep Albumin LDL Cholesterol Direct Arterial Blood Glucose Urine WBC (Auto) Crossmatch 02/17/21 02/18/21 02/18/21 21:42 07:10 07:10 WBC RBC 2.92 L Hgb 8.6 L Hct 26.0 L MCHC RDW 15.8 H Plt Count Lymph % (Auto) 5.8 L [place] % (Auto) Lymph # (Auto) 0.5 L [place] # (Auto) Seg Neutrophils % 86.6 H Seg Neuts % (Manual) Lymphocytes % (Manual) Seg Neutrophils # 8.0 H Seg Neutrophils # Man Lymphocytes # (Manual) Monocytes # (Manual) Basophils # (Manual) APTT ABG pH POC ABG pCO2 POC ABG pO2 ABG Hemoglobin ABG Oxyhemoglobin ABG Potassium ABG Chloride ABG Glucose Carboxyhemoglobin Sodium 150 H Potassium Chloride 110.3 H Carbon Dioxide BUN 63 H Creatinine 2.5 H Glucose 168 H POC Glucose 131 H Hemoglobin A1c Lactic Acid Calcium Direct Bilirubin Troponin T 0.057 H NT-Pro-B Natriuret Pep Albumin LDL Cholesterol Direct Arterial Blood Glucose Urine WBC (Auto) Crossmatch 02/18/21 02/18/21 02/18/21 08:28 11:51 17:05 WBC RBC Hgb Hct MCHC RDW Plt Count Lymph % (Auto) [place] % (Auto) Lymph # (Auto) [place] # (Auto) Seg Neutrophils % Seg Neuts % (Manual) Lymphocytes % (Manual) Seg Neutrophils # Seg Neutrophils # Man Lymphocytes # (Manual) Monocytes # (Manual) Basophils # (Manual) APTT ABG pH POC ABG pCO2 POC ABG pO2 ABG Hemoglobin ABG Oxyhemoglobin ABG Potassium ABG Chloride ABG Glucose Carboxyhemoglobin Sodium Potassium Chloride Carbon Dioxide BUN Creatinine Glucose POC Glucose 150 H 167 H 144 H Hemoglobin A1c Lactic Acid Calcium Direct Bilirubin Troponin T NT-Pro-B Natriuret Pep Albumin LDL Cholesterol Direct Arterial Blood Glucose Urine WBC (Auto) Crossmatch 02/18/21 02/19/21 02/19/21 21:47 05:20 07:52 WBC RBC Hgb Hct MCHC RDW Plt Count Lymph % (Auto) [place] % (Auto) Lymph # (Auto) [place] # (Auto) Seg Neutrophils % Seg Neuts % (Manual) Lymphocytes % (Manual) Seg Neutrophils # Seg Neutrophils # Man Lymphocytes # (Manual) Monocytes # (Manual) Basophils # (Manual) APTT ABG pH POC ABG pCO2 POC ABG pO2 ABG Hemoglobin ABG Oxyhemoglobin ABG Potassium ABG Chloride ABG Glucose Carboxyhemoglobin Sodium 150 H Potassium Chloride 109.3 H Carbon Dioxide BUN 72 H Creatinine 2.8 H Glucose 222 H POC Glucose 155 H 221 H Hemoglobin A1c Lactic Acid Calcium Direct Bilirubin Troponin T NT-Pro-B Natriuret Pep Albumin LDL Cholesterol Direct Arterial Blood Glucose Urine WBC (Auto) Crossmatch 02/19/21 02/19/21 02/19/21 11:36 12:08 17:48 WBC RBC Hgb Hct MCHC RDW Plt Count Lymph % (Auto) [place] % (Auto) Lymph # (Auto) [place] # (Auto) Seg Neutrophils % Seg Neuts % (Manual) Lymphocytes % (Manual) Seg Neutrophils # Seg Neutrophils # Man Lymphocytes # (Manual) Monocytes # (Manual) Basophils # (Manual) APTT ABG pH POC ABG pCO2 POC ABG pO2 ABG Hemoglobin 10.3 L ABG Oxyhemoglobin ABG Potassium ABG Chloride 111.0 H ABG Glucose 217 H Carboxyhemoglobin 0.3 L Sodium Potassium Chloride Carbon Dioxide BUN Creatinine Glucose POC Glucose 206 H 174 H Hemoglobin A1c Lactic Acid Calcium Direct Bilirubin Troponin T NT-Pro-B Natriuret Pep Albumin LDL Cholesterol Direct Arterial Blood Glucose 217 H Urine WBC (Auto) Crossmatch 02/19/21 02/20/21 02/20/21 21:17 03:17 05:04 WBC RBC Hgb Hct MCHC RDW Plt Count Lymph % (Auto) [place] % (Auto) Lymph # (Auto) [place] # (Auto) Seg Neutrophils % Seg Neuts % (Manual) Lymphocytes % (Manual) Seg Neutrophils # Seg Neutrophils # Man Lymphocytes # (Manual) Monocytes # (Manual) Basophils # (Manual) APTT ABG pH 7.480 H POC ABG pCO2 31.3 L POC ABG pO2 194.3 H ABG Hemoglobin 8.9 L ABG Oxyhemoglobin 98.9 H ABG Potassium ABG Chloride 113.0 H ABG Glucose 118 H Carboxyhemoglobin 0.3 L Sodium Potassium Chloride Carbon Dioxide BUN Creatinine Glucose POC Glucose 161 H 108 H Hemoglobin A1c Lactic Acid Calcium Direct Bilirubin Troponin T NT-Pro-B Natriuret Pep Albumin LDL Cholesterol Direct Arterial Blood Glucose 118 H Urine WBC (Auto) Crossmatch 02/20/21 02/20/21 05:45 05:45 WBC 15.4 H RBC 3.04 L Hgb 8.6 L Hct 26.9 L MCHC RDW 16.3 H Plt Count Lymph % (Auto) [place] % (Auto) Lymph # (Auto) [place] # (Auto) Seg Neutrophils % Seg Neuts % (Manual) Lymphocytes % (Manual) Seg Neutrophils # Seg Neutrophils # Man Lymphocytes # (Manual) Monocytes # (Manual) Basophils # (Manual) APTT ABG pH POC ABG pCO2 POC ABG pO2 ABG Hemoglobin ABG Oxyhemoglobin ABG Potassium ABG Chloride ABG Glucose Carboxyhemoglobin Sodium 148 H Potassium 3.4 L Chloride 111.2 H Carbon Dioxide BUN 75 H Creatinine 3.4 H Glucose 112 H POC Glucose Hemoglobin A1c Lactic Acid Calcium 8.2 L Direct Bilirubin Troponin T 0.075 H D NT-Pro-B Natriuret Pep Albumin LDL Cholesterol Direct Arterial Blood Glucose Urine WBC (Auto) Crossmatch
--- NOTE | 2021-02-20 10:43 | Progress Note ---
Assessment and Plan 1. Acute kidney injury: Vasomotor ANGELA superimposed on CKD in the setting of Cardiac arrest/ hypotension. Renal US negative for hydro. Urine studies ordered. Monitor renal function. Creatinine level is increasing. Avoid nephrotoxic agents. Meds dosage based on GFR. 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 D/w . 2. FEN: Hypernatremia, monitor. Replete K. Hold diuretics due to hypotension. Monitor lytes and volume status. 3. S/p cardiac arrest: 02/13 echocardiogram showed LVEF 20 to 25%. Followed by Cardiology. 4. Acute HFeEF: Followed by Cardiology. On Dobutamine drip. 5. Acute respiratory failure: S/p mechanical ventilation s/p self extubation. Re-intubated 02/19. Followed by Pulmonary. 6. Elevated troponin: S/p cardiac arrest. Followed by Cards. 7. Acute metabolic encephalopathy: Monitor. 8. Shock: On Levophed and Dobutamine. Monitor Blood pressure. 9. Bilateral pleural effusions: Diuretics when BP is better. 10. Sepsis, POA: Follow culture. Monitor. 11. H/o Breast CA. 12. DM: SSI, long acting insulin (titrate as needed). Subjective: Patient was seen and examined at the bedside. Examination: General appearance: obese, well-developed, appears stated age, intubated on vent HEENT: ATNC, Pupils equal Neck: trachea midline Respiratory: Coarse breath sounds Heart: regular, S1S2, no murmur Abdomen: soft, normoactive bowel sounds, not tender Integumentary: LE stasis changes, superficial ulcers noted Neurologic: sedated Ext: trace LE edema : asencio catheter Subjective Date of service: 02/20/21 Principal diagnosis: Pulmonary Edema Objective - Vital Signs Vital signs: Vital Signs - 12hr 02/19/21 02/19/21 02/19/21 23:00 23:20 23:27 Temperature 98.1 F Pulse Rate 96 H 90 Pulse Rate [ From Monitor] Respiratory 17 Rate Blood Pressure 112/54 124/49 O2 Sat by Pulse 98 99 Oximetry 02/19/21 02/20/21 02/20/21 23:30 00:00 00:02 Temperature Pulse Rate 85 96 H 90 Pulse Rate [ 96 H From Monitor] Respiratory 17 22 17 Rate Blood Pressure 123/51 126/50 126/50 O2 Sat by Pulse 98 99 99 Oximetry 02/20/21 02/20/21 02/20/21 00:30 01:00 01:30 Temperature Pulse Rate 93 H 91 H 92 H Pulse Rate [ From Monitor] Respiratory 20 22 21 Rate Blood Pressure 140/50 124/55 121/53 O2 Sat by Pulse 98 99 99 Oximetry 02/20/21 02/20/21 02/20/21 02:00 02:30 02:59 Temperature 98.6 F Pulse Rate 99 H 89 Pulse Rate [ From Monitor] Respiratory 22 22 Rate Blood Pressure 125/56 134/48 O2 Sat by Pulse 98 98 Oximetry 02/20/21 02/20/21 02/20/21 03:00 03:30 04:00 Temperature Pulse Rate 84 84 79 Pulse Rate [ 91 H From Monitor] Respiratory 22 22 22 Rate Blood Pressure 120/51 119/48 110/46 O2 Sat by Pulse 98 98 100 Oximetry 02/20/21 02/20/21 02/20/21 04:09 04:30 05:00 Temperature Pulse Rate 92 H 82 85 Pulse Rate [ From Monitor] Respiratory 22 22 Rate Blood Pressure 102/55 117/48 116/47 O2 Sat by Pulse 100 99 90 Oximetry 02/20/21 02/20/21 02/20/21 05:30 06:00 06:30 Temperature Pulse Rate 81 82 81 Pulse Rate [ From Monitor] Respiratory 22 22 22 Rate Blood Pressure 122/50 111/42 108/46 O2 Sat by Pulse 93 95 95 Oximetry 02/20/21 02/20/21 02/20/21 07:00 07:12 07:30 Temperature Pulse Rate 80 79 85 Pulse Rate [ From Monitor] Respiratory 22 22 Rate Blood Pressure 119/47 114/49 119/51 O2 Sat by Pulse 96 96 95 Oximetry 02/20/21 02/20/21 02/20/21 08:00 08:22 08:30 Temperature 98.5 F Pulse Rate 79 78 Pulse Rate [ 81 From Monitor] Respiratory 22 22 Rate Blood Pressure 126/51 122/49 O2 Sat by Pulse 97 97 Oximetry 02/20/21 02/20/21 02/20/21 09:00 09:30 10:00 Temperature Pulse Rate 87 81 83 Pulse Rate [ From Monitor] Respiratory 22 22 22 Rate Blood Pressure 131/43 129/47 138/57 O2 Sat by Pulse 98 98 97 Oximetry - Lab 02/20/21 05:45 02/20/21 05:45 Most recent lab results ABG pH 7.480 (7.320-7.450) H 02/20/21 03:17 ABG O2 Saturation 99.5 (0-100) 02/20/21 03:17 Calcium 8.2 mg/dL (8.4-10.2) L 02/20/21 05:45 Magnesium 2.30 mg/dL (1.7-2.3) 02/18/21 07:10 Medications & Allergies - Medications Allergies/Adverse Reactions: Allergies Penicillins Allergy (Verified 02/12/21 17:19) Unknown contrast Allergy (Uncoded 02/14/21 18:30) Rash Home Medications: Home Medications Medication Instructions Recorded Confirmed Last Taken Type AtorvaSTATin [Lipitor] 40 mg PO QHS 02/12/21 02/12/21 Unknown History Metoprolol Succinate [Kapspargo 25 mg PO QDAY 02/12/21 02/12/21 Unknown History Sprinkle] Spironolactone [Aldactone] 25 mg PO QDAY 02/12/21 02/12/21 Unknown History amLODIPine [Norvasc] 5 mg PO DAILY 02/12/21 02/12/21 Unknown History glipiZIDE [Glucotrol] 5 mg PO BID 02/12/21 02/12/21 Unknown History metFORMIN [Glucophage] 500 mg PO BID 02/12/21 02/19/21 02/12/21 History Aspirin [Adult Aspirin] 1 tab PO QDAY 02/13/21 02/19/21 02/13/21 History Biotin [Biotin 5,000 rapdis] 5,000 mcg PO QDAY 02/13/21 02/19/21 02/12/21 History NovoLOG Flexpen 2 1000units SC [facility] 02/13/21 02/19/21 02/12/21 History Active Medications: Generic Name Dose Route Start Last Admin Trade Name Freq PRN Reason Stop Dose Admin Acetaminophen 650 mg 02/12/21 20:45 Acetaminophen 325 Mg Tab PO Q4H PRN Pain MILD(1-3)/Fever >100.5/CHAMBERS Aspirin 81 mg 02/17/21 10:00 02/20/21 09:29 Aspirin 81 Mg Tab Chew PO 81 mg QDAY AV Administration Atorvastatin Calcium 40 mg 02/12/21 22:00 02/19/21 21:25 Atorvastatin 40 Mg Tab PO 40 mg QHS AV Administration Dextrose 50 ml 02/13/21 11:30 Dextrose 50% In Water (25gm) 50 Ml Syringe IV Q30MIN PRN Hypoglycemia Protocol Famotidine 20 mg 02/17/21 10:00 02/20/21 09:28 Famotidine 20 Mg/2 Ml Inj IV 20 mg DAILY AV Administration Heparin Sodium (Porcine) 5,000 unit 02/12/21 22:00 02/20/21 09:28 Heparin 5,000 Unit/1 Ml Vial SUB-Q 5,000 unit Q12HR AV Administration Hydrophilic Ointment 1 applic 02/19/21 10:59 Lip Therapy Vaseline TP Q2HR PRN Dry Lips Propofol 1,000 mg in 100 mls @ 2.946 mls/hr 02/19/21 11:00 02/20/21 09:59 Diprivan 10 Mg/Ml IV 20 mcg/kg/min TITR AV 11.784 mls/hr Administration Protocol 5 MCG/KG/MIN Dobutamine HCl/Dextrose 500 mg in 250 mls @ 14.73 mls/hr 02/19/21 13:00 10:11 Dobutrex Drip 500mg/D5w 250ml IV 5 mcg/kg/min DIRECT AV 14.73 mls/hr Administration Protocol 5 MCG/KG/MIN NORepinephrine/NS 8 MG-250 ML 8 mg in 250 mls @ 3.75 mls/hr 02/19/21 13:00 02/20/21 05:52 Norepinephrine/Ns 8 Mg-250 Ml (Double Conc) IV 4 mcg/min TITRATE AV 7.5 mls/hr Titration Protocol 2 MCG/MIN Insulin Glargine 10 units 02/15/21 08:00 02/20/21 09:29 Insulin Glargine 100 Units/Ml SUB-Q 10 units QAMDIAB AV Administration Insulin Human Lispro 0 unit 02/20/21 12:00 Insulin Lispro 100 Unit/Ml SUB-Q Q6HR AV Protocol Metoclopramide HCl 5 mg 02/12/21 20:56 Metoclopramide 10 Mg/2 Ml Inj IV Q6H PRN Nausea And Vomiting Multi-Ingred Cream/Lotion/Oil/Oint 1 applic 02/19/21 10:59 Mineral Oil/Petrolatum, White Ophth Oint 3.5 Gm OU Q4HR PRN Dry Eye(s) Ondansetron HCl 4 mg 02/12/21 20:45 Ondansetron 4 Mg/2 Ml Inj IV Q8H PRN Nausea And Vomiting Phenyleph/Shark Oil/Min Oil/Petrol 1 applic 02/15/21 12:52 Pe/Mo/Pet,Wh 10 Applic/28 Gm Tube RI Q6HR PRN Hemorrhoids Senna/Docusate Sodium 1 tab 02/19/21 22:00 02/20/21 09:29 Sennosides/Docusate Sodium 8.6/50 Mg Tab FEEDTUBE 1 tab BID AV Administration Sodium Chloride 10 ml 02/12/21 22:00 02/20/21 09:29 Sodium Chloride 0.9% 10 Ml Flush Syringe IV 10 ml BID AV Administration Sodium Chloride 10 ml 02/12/21 20:45 Sodium Chloride 0.9% 10 Ml Flush Syringe IV PRN PRN LINE FLUSH
[2021-02-20] MEDS: INSULIN LISPRO 100 UNIT/ML SUB-Q SCH ×3 (11:44→23:59)
[2021-02-20] MEDS ORDERED: LIPASE 10,500/PROTEASE 25,000/AMYLASE 43,750 (UNITS) DR CAP FEEDTUBE PRN (12:00)
[2021-02-20] MEDS ORDERED: SIMPLE SYRUP 15 ML FEEDTUBE PRN ×2 (12:00)
[2021-02-20] MEDS ORDERED: POTASSIUM CHLORIDE 20 MEQ PACKET FEEDTUBE ONE (12:00)
[2021-02-20] MEDS ORDERED: SODIUM BICARBONATE 325 MG TAB FEEDTUBE PRN (12:00)
--- NOTE | 2021-02-20 13:07 | Progress Note ---
Assessment and Plan Acute Respiratory Failure with pulmonary edema * Patient has been intubated per pulmonology after deterioration on CPAP. 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 LV is normal size. LV SF is moderate to severely decreased. Severe global hypokinesis of LV. RV SF is normal. Mild to moderate MR. RVSP is 11 mmHg. * GDMT as tolerated * Patient is currently hypotensive requiring vasopressor support. Thus diuretics are on hold. Ultimately patient will benefit from effective diuresis, will plan to resume Bumex once patient is hemodynamically stable. Paroxysmal A. fib in setting of anemia * Review of telemetry this a.m. shows patient to be in atrial fibrillation with CVR. Patient would benefit from anticoagulation from standpoint of CVA protection but has been severely anemic over the course of this admission. After discussion with Dr Davenport will initiate Heparin gtt. ANGELA * No ACEI/ARB in setting of ANGELA. Avoid nephrotoxic agents Elevated troponin * Troponins are elevated, subacute and nonspecific. Trending downwards. Continue to trend CE's. We will follow This patient was seen in conjunction with Dr Alejandro who agrees with this assessment and plan of care - Patient Problems (1) Acute renal failure Current Visit: Yes Status: Acute Qualifiers: Acute renal failure type: with acute tubular necrosis Qualified Code(s): N17.0 - Acute kidney failure with tubular necrosis (2) Non-ST elevated myocardial infarction (non-STEMI) Current Visit: Yes Status: Acute (3) Acute exacerbation of CHF (congestive heart failure) Current Visit: Yes Status: Acute Qualifiers: Heart failure type: systolic Qualified Code(s): I50.23 - Acute on chronic systolic (congestive) heart failure (4) Acute heart failure Current Visit: Yes Status: Acute Qualifiers: Heart failure type: systolic Qualified Code(s): I50.21 - Acute systolic (congestive) heart failure (5) Acute respiratory failure with hypoxia Current Visit: Yes Status: Acute (6) Bilateral pleural effusion Current Visit: Yes Status: Acute (7) Sepsis Current Visit: Yes Status: Acute Qualifiers: Severe sepsis shock status: with septic shock (8) HLD (hyperlipidemia) Current Visit: Yes Status: Chronic Qualifiers: Hyperlipidemia type: mixed hyperlipidemia Qualified Code(s): E78.2 - Mixed hyperlipidemia (9) T2DM (type 2 diabetes mellitus) Current Visit: Yes Status: Chronic 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 Telemetry reviewed: A. fib 80s. No events Objective Last Vital Signs Temp 98.5 F 02/20/21 08:22 Pulse 99 H 02/20/21 11:30 Resp 18 02/20/21 11:30 BP 127/60 02/20/21 11:30 Pulse Ox 97 02/20/21 11:30 - Physical Examination General: Other (accessory muscle in breathing) HEENT: Positive: EOMI, Normocephaly Neck: Positive: neck supple, trachea midline. Negative: JVD/HJR Cardiac: Positive: irregularly irregular, S1/S2 Lungs: Positive: Ventilated Respirations Neuro: Positive: Other (Intubated sedated) Abdomen: Positive: Soft Skin: Negative: Rash Musculoskeletal: other (Intubated sedated) Extremities: Present: lower extr. pulses, edema (trace BLE), Other (chronic skin changes noted) - Labs and Meds CBC 02/20/21 Range/Units 05:45 WBC 15.4 H (4.5-11.0) K/mm3 RBC 3.04 L (3.65-5.03) M/mm3 Hgb 8.6 L (10.1-14.3) gm/dl Hct 26.9 L (30.3-42.9) % Plt Count 344 (140-440) K/mm3 Comprehensive Metabolic Panel 02/20/21 Range/Units 05:45 Sodium 148 H (137-145) mmol/L Potassium 3.4 L (3.6-5.0) mmol/L Chloride 111.2 H (98-107) mmol/L Carbon Dioxide 23 (22-30) mmol/L BUN 75 H (7-17) mg/dL Creatinine 3.4 H (0.6-1.2) mg/dL Glucose 112 H (65-100) mg/dL Calcium 8.2 L (8.4-10.2) mg/dL - Imaging and Cardiology EKG: report reviewed, image reviewed Echo: report reviewed (Echocardiogram reviewed (02/14/2021): LVEF is 20 to 25%. LV is normal size. LV SF is moderate to severely decreased. Severe global hypokinesis of LV. RV SF is normal. Mild to moderate MR. RVSP is 11 mmHg.), other (2018 - EF 45-50%, trace MR) - Telemetry EKG Rhythm: Atrial Fibrillation - EKG Sinus rhythms and dysrhythmias: sinus rhythm Repolarization changes or abnormalities: nonspecific abnormality, ST segment, and/or T wave
[2021-02-20] MEDS ORDERED: HEPARIN 10,000 UNITS/10 ML VIAL IV PRN (13:08)
--- NOTE | 2021-02-20 13:36 | Progress Note ---
Assessment and Plan This is a 62-year-old female with COPD, CHF, HTN, GERD, breast cancer, arthritis HLD, type 2 diabetes mellitus admitted s/p cardiac arrest with acute exacerbation of congestive heart failure, acute hypoxic respiratory failure, sepsis, acute kidney injury and electrolyte imbalances A/P --Acute hypoxic respiratory failure, Patient initiated on continuous BiPAP. Now intubated on 02/19/21 Pulmonary critical care following, wean off from vent as tolerated --Acute metabolic encephalopathy -Fall/aspiration precautions -Reorientation as needed -02/12 CT head shows no acute intracranial abnormality -Likely due to severe hypoxia --S/p cardiac arrest -02/13 echocardiogram shows left ventricular function moderate to severely decreased, LVEF 20 to 25%, right ventricle systolic function normal, mitral valve annular calcification, thickened and calcified leaflets, mild to moderate mitral valve regurgitation, RVSP 11 mmHg, trace TR, large left pleural effusion with no pericardial effusion -Cardiology consulted, appreciate recommendations --Acute on chronic systolic heart failure -Cardiology consulted -Per cardiology 03/2018 echocardiogram showed ejection fraction of 45 to 50%, trace MR, trace TR -02/13 echocardiogram shows left ventricular function moderate to severely decreased, LVEF 20 to 25%, right ventricle systolic function normal, mitral valve annular calcification, thickened and calcified leaflets, mild to moderate mitral valve regurgitation, RVSP 11 mmHg, trace TR, large left pleural effusion with no pericardial effusion -s/p IV lasix 40 mg twice daily s/p milrinone per cardiology -strict I&O -asencio --Cardiogenic shock -as needed Levophed -Blood pressure monitoring per protocol --Hypertension -Patient has a history of hypertension -All antihypertensives now on hold. Patient currently on pressor support --Atrial fibrillation, initiated on heparin drip, rate controlled Cardiology following --Elevated troponin/NSTEMI type II -Cardiology consulted -Likely due to cardiac arrest and renal failure -Trend trop --Hyperlipidemia -Resume home statin --Bilateral pleural effusions -evidenced on cxr -s/p lasix in ED -Status post lasix IV, sprinolactone PO -Consider thoracentesis if no improvement in respiratory status: Will defer to pulmonary --Hyperkalemia, resolved -s/p Kayexalate -Trend potassium --Hypernatremia, gentle IV fluid, monitor BMP Free water with tube feeding --Acute kidney injury, -Presented with a BUN/creatinine of 1.7/, 02/13 BUN/creatinine 2.2/29 -Strict urine output -Avoid nephrotoxic medications -Renally dose medications -Daily weights -Nephrology consult --Lactic acidosis, resolved -Presented with a lactic acid of 4.5, 02/13 lactic acid 0.8 --Sepsis -abx therapy -Presented with hypoxia, tachycardia, hypotension, leukocytosis -BC x2 neg -Tracheal aspirate pending --h/o Breast CA, need outpatient follow-up --DM type II -SSI, long acting insulin (titrate as needed) -Hbg A1C -Acccuchecks -Hypoglycemic protocol -CC consistent carbohydrate --Bilateral lower extremity skin lacerations -WOCN consulted -Wound care per nursing --Anxiety -Xanax prn --DVT prophylaxis, heparin The high probability of a clinically significant, sudden or life threatening deterioration of the [cardio/respiratory] system(s) required my full and direct attention, intervention and personal management. The aggregate critical care time was [35] minutes. This time is in addition to time spent performing reported procedures but includes the following: [x] Data Review and interpretation [x] Patient assessment and monitoring of vital signs [x] Documentation [x] Medication orders and managementdiet DVT/GI prophylaxis: PPI, SCDs to bilateral ultrasound in bed, heparin Disposition: Continue care in ICU, Guarded prognosis Lines: CVL, asencio Brief history This is a 62-year-old female with COPD, CHF, HTN, GERD, breast cancer, arthritis HLD, type 2 diabetes mellitus who presented to the emergency department on 02/12 with complaints of severe shortness of breath and upon presentation patient assistance duration was 70% despite being on BiPAP and was electively intubated. After intubation patient had cardiac arrest with PEA and ACLS was initiated for approximately 5 minutes with achievement of ROSC. Patient later self extubated and was placed back on BiPAP. Work-up in the emergency department revealed leukocytosis, lactic acidosis, and CXR showed bilateral pleural effusions with pulmonary edema, elevated proBNP, elevated troponins. Patient was admitted to the hospital service s/p cardiac arrest, acute hypoxic respiratory failure, acute exacerbation of CHF and sepsis with consults to cardiology and CCM. Daily clinical course: 02/13: Patient weaned to high flow nasal cannula, echocardiogram pending, Levophed titrated off, COVID-19 PCR negative 02/14: Patient was transferred to stepdown status, per cardiology patient received IV Lasix to help with pleural effusion seen on echocardiogram. Echocardiogram read with ejection fraction of 20 to 25%. Patient was started on Xanax to help with anxiety. Long-acting insulin increased due to persistent hyperglycemia 02/15: Patient placed back on BiPAP, started to have respiratory decompensation. Spoke with cardiology and pulmonology, will start milrinone, continue Lasix, low threshold for reintubation. 02/16: milrinone drip is running, continue : Patient seen and examined with at the bedside, patient continues to be very agitated, given sedation, low threshold for reintubation. Diuresis with Lasix. 02/17: Patient remains on continuous BiPAP and milrinone drip. She took off her BiPAP mask this morning which was immediately replaced by respiratory therapist. Patient remains lethargic and slightly restless. H&H remained stable, creatinine continue to trend up-consult nephrology, follow BMP. 02/18/21; patient on Bumex and milrinone drip. Also initiated on D5W at 30 mils per hour as patient unable to eat because she is on continuous BiPAP and sodium level 150 today, repeat BMP tomorrow. Poor prognosis 02/19/21: Patient intubated today and transferred to ICU. Continue to follow clinically, poor prognosis. Hold milrinone and Lasix. Patient is requiring pressor support. Poor prognosis 02/20/21: platient placed on heparin drip for atrial fib. Continue supportive care, wean off from vent as tolerated. Overall prognosis is very poor. Subjective Date of service: 02/20/21 Principal diagnosis: Pulmonary Edema Interval history: Patient seen and examined. Medical records and medication list reviewed. Vitals noted, patient remains intubated Being monitored in the ICU, rhythm converted to atrial fibrillation Discussed plan of care at bedside with patient's RN and with critical care Objective - Exam Narrative Exam: GENERAL: Morbidly obese white female lying on bed intubated and sedated HEENT: Normocephalic. Atraumatic. No conjunctival congestion or icterus. Patient has moist mucous membranes. NECK: Supple. Trachea midline. CHEST/LUNGS: On mechanical ventilation, coarse breath sounds auscultated bilaterally HEART/CARDIOVASCULAR: Regular in rate and rhythm. S1 and S2 positive. ABDOMEN: Abdomen is soft, nontender. Patient has normal bowel sounds. SKIN: There is no rash. Warm and dry. NEURO: Sedated MUSCULOSKELETAL: No joint effusion or tenderness. EXTRIMITY: Lower extremity wound with a dry scaly skin, + edema PSYCH: Unable to assess - Constitutional Vitals: Vital Signs - 12hr 02/20/21 02/20/21 02/20/21 02:00 02:30 02:59 Temperature 98.6 F Pulse Rate 99 H 89 Pulse Rate [ From Monitor] Respiratory 22 22 Rate Blood Pressure 125/56 134/48 O2 Sat by Pulse 98 98 Oximetry 02/20/21 02/20/21 02/20/21 03:00 03:30 04:00 Temperature Pulse Rate 84 84 79 Pulse Rate [ 91 H From Monitor] Respiratory 22 22 22 Rate Blood Pressure 120/51 119/48 110/46 O2 Sat by Pulse 98 98 100 Oximetry 02/20/21 02/20/21 02/20/21 04:09 04:30 05:00 Temperature Pulse Rate 92 H 82 85 Pulse Rate [ From Monitor] Respiratory 22 22 Rate Blood Pressure 102/55 117/48 116/47 O2 Sat by Pulse 100 99 90 Oximetry 02/20/21 02/20/21 02/20/21 05:30 06:00 06:30 Temperature Pulse Rate 81 82 81 Pulse Rate [ From Monitor] Respiratory 22 22 22 Rate Blood Pressure 122/50 111/42 108/46 O2 Sat by Pulse 93 95 95 Oximetry 02/20/21 02/20/21 02/20/21 07:00 07:12 07:30 Temperature Pulse Rate 80 79 85 Pulse Rate [ From Monitor] Respiratory 22 22 Rate Blood Pressure 119/47 114/49 119/51 O2 Sat by Pulse 96 96 95 Oximetry 02/20/21 02/20/21 02/20/21 08:00 08:22 08:30 Temperature 98.5 F Pulse Rate 79 78 Pulse Rate [ 81 From Monitor] Respiratory 22 22 Rate Blood Pressure 126/51 122/49 O2 Sat by Pulse 97 97 Oximetry 02/20/21 02/20/21 02/20/21 09:00 09:30 10:00 Temperature Pulse Rate 87 81 83 Pulse Rate [ From Monitor] Respiratory 22 22 22 Rate Blood Pressure 131/43 129/47 138/57 O2 Sat by Pulse 98 98 97 Oximetry 02/20/21 02/20/2121 10:30 11:00 11:28 Temperature Pulse Rate 144 H 106 H 95 H Pulse Rate [ From Monitor] Respiratory 22 18 Rate Blood Pressure 144/48 115/49 115/49 O2 Sat by Pulse 97 96 96 Oximetry 02/20/21 02/20/21 02/20/21 11:30 12:00 12:30 Temperature Pulse Rate 99 H 94 H 92 H Pulse Rate [ 95 H From Monitor] Respiratory 18 18 19 Rate Blood Pressure 127/60 114/57 137/53 O2 Sat by Pulse 97 96 95 Oximetry 02/20/21 02/20/21 13:00 13:30 Temperature Pulse Rate 92 H 93 H Pulse Rate [ From Monitor] Respiratory 18 18 Rate Blood Pressure 132/51 151/52 O2 Sat by Pulse 94 94 Oximetry - Labs CBC & Chem 7: 02/22/21 04:00 02/23/21 04:00 Labs: Abnormal lab results 02/19/21 02/19/21 02/20/21 Range/Units 17:48 21:17 03:17 WBC (4.5-11.0) K/mm3 RBC (3.65-5.03) M/mm3 Hgb (10.1-14.3) gm/dl Hct (30.3-42.9) % RDW (13.2-15.2) % ABG pH 7.480 H (7.320-7.450) POC ABG pCO2 31.3 L (32.0-48.0) mmHg POC ABG pO2 194.3 H (83-108) mmHg ABG Hemoglobin 8.9 L (12.0-17.5) ABG Oxyhemoglobin 98.9 H (94-98) ABG Chloride 113.0 H (98-107) mmol/L ABG Glucose 118 H (65-95) mg/dL Carboxyhemoglobin 0.3 L (0.5-1.5) Sodium (137-145) mmol/L Potassium (3.6-5.0) mmol/L Chloride (98-107) mmol/L BUN (7-17) mg/dL Creatinine (0.6-1.2) mg/dL Glucose (65-100) mg/dL POC Glucose 174 H 161 H (70-105) mg/dL Calcium (8.4-10.2) mg/dL Troponin T (0.00-0.029) ng/mL Arterial Blood Glucose 118 H (65-95) mg/dL 02/20/21 02/20/21 02/20/21 Range/Units 05:04 05:45 05:45 WBC 15.4 H (4.5-11.0) K/mm3 RBC 3.04 L (3.65-5.03) M/mm3 Hgb 8.6 L (10.1-14.3) gm/dl Hct 26.9 L (30.3-42.9) % RDW 16.3 H (13.2-15.2) % ABG pH (7.320-7.450) POC ABG pCO2 (32.0-48.0) mmHg POC ABG pO2 (83-108) mmHg ABG Hemoglobin (12.0-17.5) ABG Oxyhemoglobin (94-98) ABG Chloride (98-107) mmol/L ABG Glucose (65-95) mg/dL Carboxyhemoglobin (0.5-1.5) Sodium 148 H (137-145) mmol/L Potassium 3.4 L (3.6-5.0) mmol/L Chloride 111.2 H (98-107) mmol/L BUN 75 H (7-17) mg/dL Creatinine 3.4 H (0.6-1.2) mg/dL Glucose 112 H (65-100) mg/dL POC Glucose 108 H (70-105) mg/dL Calcium 8.2 L (8.4-10.2) mg/dL Troponin T 0.075 H D (0.00-0.029) ng/mL Arterial Blood Glucose (65-95) mg/dL 02/20/21 Range/Units 11:34 WBC (4.5-11.0) K/mm3 RBC (3.65-5.03) M/mm3 Hgb (10.1-14.3) gm/dl Hct (30.3-42.9) % RDW (13.2-15.2) % ABG pH (7.320-7.450) POC ABG pCO2 (32.0-48.0) mmHg POC ABG pO2 (83-108) mmHg ABG Hemoglobin (12.0-17.5) ABG Oxyhemoglobin (94-98) ABG Chloride (98-107) mmol/L ABG Glucose (65-95) mg/dL Carboxyhemoglobin (0.5-1.5) Sodium (137-145) mmol/L Potassium (3.6-5.0) mmol/L Chloride (98-107) mmol/L BUN (7-17) mg/dL Creatinine (0.6-1.2) mg/dL Glucose (65-100) mg/dL POC Glucose 143 H (70-105) mg/dL Calcium (8.4-10.2) mg/dL Troponin T (0.00-0.029) ng/mL Arterial Blood Glucose (65-95) mg/dL HEART Score - HEART Score EKG: Non-specific Age: > 65 Risk factors: 1-2 risk factors Troponin: Troponin T 0.075 ng/mL (0.00-0.029) H D 02/20/21 05:45 Troponin: < normal limit - Critical Actions Critical Actions: 4-6 pts:12-16.6% risk of adverse cardiac event. Should be admitted
[2021-02-20] MEDS ORDERED: HEPARIN 10,000 UNITS/10 ML VIAL IV ONE (14:00)
[2021-02-20] MEDS: HEPARIN/ 0.45% NACL DRIP 25,000 UNIT/500 ML BAG IV SCH (14:29)
[2021-02-20] MEDS: ACETAMINOPHEN 325 MG TAB PO PRN (16:04)
[2021-02-20 16:53] LABS: Hematocrit 27.1 % (30.3-42.9); Hemoglobin 8.6 gm/dl (10.1-14.3)
[2021-02-20 18:12] LABS: Partial Thromboplastin Time TNR Sec. (24.2-36.6)
--- NOTE | 2021-02-21 03:02 | XRay Report ---
XR chest 1V ap INDICATION / CLINICAL INFORMATION: Hypoxemia. COMPARISON: Radiograph from yesterday. FINDINGS: SUPPORT DEVICES: Unchanged. HEART /PULMONARY VASCULATURE: Unchanged. LUNGS / PLEURA: Slight improvement in airspace opacities within the upper lungs. Bibasilar pleural ef fusions and adjacent airspace opacities are largely unchanged. No pneumothorax. IMPRESSION: 1. Improving airspace disease in the upper lungs. Signer Name: Rod Quinonez MD Signed: 02/21/2021 2:58 AM Workstation Name: [id number]
[2021-02-21] MEDS: INSULIN LISPRO 100 UNIT/ML SUB-Q SCH ×4 (06:07→23:57)
[2021-02-21 06:32] LABS: Basophils # (Auto) 0.1 K/mm3 (0.0-0.1); Basophils % (Auto) 0.4 % (0.0-1.8); Eosinophils # (Auto) 0.3 K/mm3 (0.0-0.4); Eosinophils % (Auto) 2.4 % (0.0-4.3); Hematocrit 25.7 % (30.3-42.9); Hemoglobin 8.2 gm/dl (10.1-14.3); Lymphocytes # (Auto) 1.2 K/mm3 (1.2-5.4); Lymphocytes % (Auto) 9.2 % (13.4-35.0); Mean Corpuscular HGB Conc 32 % (30-34); Mean Corpuscular Volume 89 fl (79-97); Monocytes % (Auto) 7.9 % (0.0-7.3); Platelet Count 256 K/mm3 (140-440); Red Blood Count 2.91 M/mm3 (3.65-5.03); Red Cell Distribution Width 16.3 % (13.2-15.2)
[2021-02-21] MEDS: INSULIN GLARGINE 100 UNITS/ML SUB-Q SCH (08:57)
[2021-02-21 09:19] LABS: Calcium 8.6 mg/dL (8.4-10.2)
[2021-02-21] MEDS: SENNOSIDES/DOCUSATE SODIUM 8.6/50 MG TAB FEEDTUBE SCH ×2 (09:24→21:19)
[2021-02-21] MEDS: ASPIRIN 81 MG TAB CHEW PO SCH (09:24)
[2021-02-21] MEDS: FAMOTIDINE 20 MG/2 ML INJ IV SCH (09:24)
--- NOTE | 2021-02-21 10:10 | Progress Note ---
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 LV is normal size. LV SF is moderate to severely decreased. Severe global hypokinesis of LV. RV SF is normal. Mild to moderate MR. RVSP is 11 mmHg. * GDMT as tolerated. Patient is currently hypotensive requiring vasopressor supp ort. Thus diuretics are on hold. Ultimately patient will benefit from effective diuresis, will plan to resume Bumex once patient is hemodynamically stable. Paroxysmal A. fib in setting of anemia * After discussion with primary care team patient is anticoagulated on heparin drip. * Currently controlled ventricular response, continue to monitor on telemetry ANGELA * No ACEI/ARB in setting of ANGELA. Avoid nephrotoxic agents NSTEMI suspect type II * Troponins are elevated, subacute and nonspecific. Trending upwards. Continue to trend CE's. We will follow This patient was seen in conjunction with Dr Alejandro who agrees with this assessment and plan of care - Patient Problems (1) Acute renal failure Current Visit: Yes Status: Acute Qualifiers: Acute renal failure type: with acute tubular necrosis Qualified Code(s): N17.0 - Acute kidney failure with tubular necrosis (2) Non-ST elevated myocardial infarction (non-STEMI) Current Visit: Yes Status: Acute (3) Acute exacerbation of CHF (congestive heart failure) Current Visit: Yes Status: Acute Qualifiers: Heart failure type: systolic Qualified Code(s): I50.23 - Acute on chronic systolic (congestive) heart failure (4) Acute heart failure Current Visit: Yes Status: Acute Qualifiers: Heart failure type: systolic Qualified Code(s): I50.21 - Acute systolic (congestive) heart failure (5) Acute respiratory failure with hypoxia Current Visit: Yes Status: Acute (6) Bilateral pleural effusion Current Visit: Yes Status: Acute (7) Sepsis Current Visit: Yes Status: Acute Qualifiers: Severe sepsis shock status: with septic shock (8) HLD (hyperlipidemia) Current Visit: Yes Status: Chronic Qualifiers: Hyperlipidemia type: mixed hyperlipidemia Qualified Code(s): E78.2 - Mixed hyperlipidemia (9) T2DM (type 2 diabetes mellitus) Current Visit: Yes Status: Chronic Qualifiers: Diabetes mellitus prison insulin use: with prison use Subjective Date of service: 02/21/21 Principal diagnosis: Pulmonary Edema Interval history: Patient remains intubated and unresponsive on sedation. Telemetry reviewed shows A. fib 90s. No events Objective Last Vital Signs Temp 97.9 F 02/21/21 07:43 Pulse 94 H 02/21/21 09:30 Resp 18 02/21/21 09:30 BP 97/53 02/21/21 09:30 Pulse Ox 96 02/21/21 09:30 - Physical Examination General: Other (accessory muscle in breathing) HEENT: Positive: EOMI, Normocephaly Neck: Positive: neck supple, trachea midline. Negative: JVD/HJR Cardiac: Positive: irregularly irregular, S1/S2 Lungs: Positive: Ventilated Respirations Neuro: Positive: Other (Intubated sedated) Abdomen: Positive: Soft Skin: Negative: Rash Musculoskeletal: other (Intubated sedated) Extremities: Present: lower extr. pulses, edema (trace BLE), Other (chronic skin changes noted) - Labs and Meds Coagulation 02/20/21 Range/Units Unknown PT 19.5 H (12.2-14.9) Sec. INR 1.60 H (0.87-1.13) APTT TNR CBC 02/20/21 02/21/21 Range/Units Unknown 06:10 WBC 12.8 H (4.5-11.0) K/mm3 RBC 2.91 L (3.65-5.03) M/mm3 Hgb 8.6 L 8.2 L (10.1-14.3) gm/dl Hct 27.1 L 25.7 L (30.3-42.9) % Plt Count 309 256 (140-440) K/mm3 Lymph # (Auto) 1.2 (1.2-5.4) K/mm3 [place] # (Auto) 1.0 H (0.0-0.8) K/mm3 Eos # (Auto) 0.3 (0.0-0.4) K/mm3 Baso # (Auto) 0.1 (0.0-0.1) K/mm3 Comprehensive Metabolic Panel 02/21/21 Range/Units 05:58 Sodium 147 H (137-145) mmol/L Potassium 4.4 D (3.6-5.0) mmol/L Chloride 108.4 H (98-107) mmol/L Carbon Dioxide 24 (22-30) mmol/L BUN 80 H (7-17) mg/dL Creatinine 3.2 H (0.6-1.2) mg/dL Glucose 220 H (65-100) mg/dL Calcium 8.6 (8.4-10.2) mg/dL - Imaging and Cardiology EKG: report reviewed, image reviewed Echo: report reviewed (Echocardiogram reviewed (02/14/2021): LVEF is 20 to 25%. LV is normal size. LV SF is moderate to severely decreased. Severe global hypokinesis of LV. RV SF is normal. Mild to moderate MR. RVSP is 11 mmHg.), other (2018 - EF 45-50%, trace MR) - Telemetry EKG Rhythm: Atrial Fibrillation - EKG Sinus rhythms and dysrhythmias: sinus rhythm Repolarization changes or abnormalities: nonspecific abnormality, ST segment, and/or T wave
[2021-02-21] MEDS ORDERED: INSULIN LISPRO 100 UNIT/ML SUB-Q ONE (12:44)
--- NOTE | 2021-02-21 14:21 | Progress Note ---
Assessment and Plan 1. Acute kidney injury: Vasomotor ANGELA superimposed on CKD in the setting of Cardiac arrest/ hypotension. Renal US negative for hydro. Urine studies ordered. Monitor renal function. Creatinine level is about the same as yesterday. Avoid nephrotoxic agents. Meds dosage based on GFR. Monitor for [employer] needs. 2. FEN: Hypernatremia, monitor. Hold diuretics due to hypotension. Monitor lytes and volume status. 3. S/p cardiac arrest: 02/13 echocardiogram showed LVEF 20 to 25%. Followed by Cardiology. 4. Acute HFeEF: Followed by Cardiology. Was on Dobutamine drip. 5. Acute respiratory failure: S/p mechanical ventilation s/p self extubation. Re-intubated 02/19. Followed by Pulmonary. 6. Elevated troponin: S/p cardiac arrest. Followed by Cards. 7. Acute metabolic encephalopathy: Monitor. 8. Shock: Off pressors. Monitor Blood pressure. 9. Bilateral pleural effusions: Diuretics when BP is better. 10. Sepsis, POA: Follow culture. Monitor. 11. H/o Breast CA. 12. DM: SSI, long acting insulin (titrate as needed). Subjective: Patient was seen and examined at the bedside. Examination: General appearance: obese, well-developed, appears stated age, intubated on vent HEENT: ATNC, Pupils equal Neck: trachea midline Respiratory: Coarse breath sounds Heart: regular, S1S2, no murmur Abdomen: soft, normoactive bowel sounds, not tender Integumentary: LE stasis changes, superficial ulcers noted Neurologic: sedated Ext: trace LE edema : asencio catheter Subjective Date of service: 02/21/21 Principal diagnosis: Pulmonary Edema Objective - Vital Signs Vital signs: Vital Signs - 12hr 02/21/21 02/21/21 02/21/21 02:30 03:00 03:21 Temperature 99.1 F Pulse Rate 96 H 94 H Pulse Rate [ From Monitor] Respiratory 18 18 Rate Blood Pressure 116/55 112/47 O2 Sat by Pulse 98 98 Oximetry 02/21/21 02/21/21 02/21/21 03:30 03:52 04:00 Temperature Pulse Rate 100 H 95 H 101 H Pulse Rate [ 102 H From Monitor] Respiratory 18 18 Rate Blood Pressure 114/47 126/54 123/53 O2 Sat by Pulse 97 97 97 Oximetry 07/06/0402/21/21 02/21/21 04:30 05:00 05:30 Temperature Pulse Rate 96 H 101 H 105 H Pulse Rate [ From Monitor] Respiratory 18 18 18 Rate Blood Pressure 125/53 121/47 112/47 O2 Sat by Pulse 97 97 98 Oximetry 02/21/21 02/21/21 02/21/21 06:00 06:30 07:00 Temperature Pulse Rate 104 H 103 H 99 H Pulse Rate [ From Monitor] Respiratory 18 18 18 Rate Blood Pressure 123/53 123/49 113/56 O2 Sat by Pulse 95 96 99 Oximetry 02/21/21 02/21/21 02/21/21 07:14 07:30 07:43 Temperature 97.9 F Pulse Rate 98 H 101 H Pulse Rate [ From Monitor] Respiratory 18 Rate Blood Pressure 114/48 102/47 O2 Sat by Pulse 97 94 Oximetry 02/21/21 02/21/21 02/21/21 08:00 08:30 09:00 Temperature Pulse Rate 93 H 90 92 H Pulse Rate [ 90 From Monitor] Respiratory 18 18 18 Rate Blood Pressure 105/54 113/47 96/52 O2 Sat by Pulse 96 94 97 Oximetry 02/21/21 02/21/21 02/21/21 09:30 11:40 12:00 Temperature 98.5 F Pulse Rate 94 H 88 Pulse Rate [ From Monitor] Respiratory 18 Rate Blood Pressure 97/53 121/40 O2 Sat by Pulse 96 99 Oximetry - Lab 02/21/21 06:10 02/21/21 05:58 Most recent lab results ABG pH 7.425 (7.320-7.450) 02/21/21 02:53 ABG O2 Saturation 94.5 (0-100) 02/21/21 02:53 Calcium 8.6 mg/dL (8.4-10.2) 02/21/21 05:58 Magnesium 2.30 mg/dL (1.7-2.3) 02/18/21 07:10 Medications & Allergies - Medications Allergies/Adverse Reactions: Allergies Penicillins Allergy (Verified 02/12/21 17:19) Unknown contrast Allergy (Uncoded 02/14/21 18:30) Rash Home Medications: Home Medications Medication Instructions Recorded Confirmed Last Taken Type AtorvaSTATin [Lipitor] 40 mg PO QHS 02/12/21 02/12/21 Unknown History Metoprolol Succinate [Kapspargo 25 mg PO QDAY 02/12/21 02/12/21 Unknown History Sprinkle] Spironolactone [Aldactone] 25 mg PO QDAY 02/12/21 02/12/21 Unknown History amLODIPine [Norvasc] 5 mg PO DAILY 02/12/21 02/12/21 Unknown History glipiZIDE [Glucotrol] 5 mg PO BID 02/12/21 02/12/21 Unknown History metFORMIN [Glucophage] 500 mg PO BID 02/12/21 02/19/21 02/12/21 History Aspirin [Adult Aspirin] 1 tab PO QDAY 02/13/21 02/19/21 02/13/21 History Biotin [Biotin 5,000 rapdis] 5,000 mcg PO QDAY 02/13/21 02/19/21 02/12/21 History NovoLOG Flexpen 2 1000units SC ACHS 02/13/21 02/19/21 02/12/21 History Active Medications: Generic Name Dose Route Start Last Admin Trade Name Freq PRN Reason Stop Dose Admin Acetaminophen 650 mg 02/12/21 20:45 02/20/21 16:04 Acetaminophen 325 Mg Tab PO 650 mg Q4H PRN Administration Pain MILD(1-3)/Fever >100.5/CHAMBERS Lipase/Protease/Amylase 1 each 02/20/21 12:00 Lipase 10,500/Protease 25,000/Amylase 43,750 (Units) Dr Meza FEEDTUBE PRN PRN For Clogged Feeding Tube Aspirin 81 mg 02/17/21 10:00 02/21/21 09:24 Aspirin 81 Mg Tab Chew PO 81 mg QDAY AV Administration Atorvastatin Calcium 40 mg 02/12/21 22:00 02/20/21 21:16 Atorvastatin 40 Mg Tab PO 40 mg QHS AV Administration Dextrose 50 ml 02/13/21 11:30 Dextrose 50% In Water (25gm) 50 Ml Syringe IV Q30MIN PRN Hypoglycemia Protocol Famotidine 20 mg 02/17/21 10:00 02/21/21 09:24 Famotidine 20 Mg/2 Ml Inj IV 20 mg DAILY AV Administration Heparin Sodium (Porcine) 3,900 unit 02/20/21 13:08 Heparin 10,000 Units/10 Ml Vial 40 unit/kg (3900 unit) IV Q6H PRN Anti-Xa Assay < 0.1 units/ml Hydrophilic Ointment 1 applic 02/19/21 10:59 Lip Therapy Vaseline TP Q2HR PRN Dry Lips Propofol 1,000 mg in 100 mls @ 2.946 mls/hr 02/19/21 11:00 02/21/21 09:29 Diprivan 10 Mg/Ml IV 20 mcg/kg/min TITR AV 11.784 mls/hr Administration Protocol 5 MCG/KG/MIN Dobutamine HCl/Dextrose 500 mg in 250 mls @ 14.73 mls/hr 02/19/21 13:00 02/20/21 19:00 Dobutrex Drip 500mg/D5w 250ml IV 0 mcg/kg/min DIRECT AV 0 mls/hr Infusion Protocol 5 MCG/KG/MIN NORepinephrine/NS 8 MG-250 ML 8 mg in 250 mls @ 3.75 mls/hr 02/19/21 13:00 02/21/21 06:00 Norepinephrine/Ns 8 Mg-250 Ml (Double Conc) IV 0 mcg/min TITRATE AV 0 mls/hr Titration Protocol 2 MCG/MIN Heparin Sodium/Sodium Chloride 25,000 unit in 500 mls @ 29 mls/hr 02/20/21 14:00 02/21/21 09:00 Heparin/ 0.45% Nacl-25,000 Unit/500 Ml IV 1,050 units/hr TITR AV 21 mls/hr Titration Protocol 1,450 UNITS/HR Insulin Glargine 10 units 02/15/21 08:00 02/21/21 08:57 Insulin Glargine 100 Units/Ml SUB-Q 10 units QAMDIAB AV Administration Insulin Human Lispro 0 unit 02/20/21 12:00 02/21/21 12:49 Insulin Lispro 100 Unit/Ml SUB-Q 3 unit Q6HR AV Administration Protocol Metoclopramide HCl 5 mg 02/12/21 20:56 Metoclopramide 10 Mg/2 Ml Inj IV Q6H PRN Nausea And Vomiting Multi-Ingred Cream/Lotion/Oil/Oint 1 applic 02/19/21 10:59 Mineral Oil/Petrolatum, White Ophth Oint 3.5 Gm OU Q4HR PRN Dry Eye(s) Ondansetron HCl 4 mg 02/12/21 20:45 Ondansetron 4 Mg/2 Ml Inj IV Q8H PRN Nausea And Vomiting Phenyleph/Shark Oil/Min Oil/Petrol 1 applic 02/15/21 12:52 Pe/Mo/Pet,Wh 10 Applic/28 Gm Tube OR Q6HR PRN Hemorrhoids Senna/Docusate Sodium 1 tab 02/19/21 22:00 02/21/21 09:24 Sennosides/Docusate Sodium 8.6/50 Mg Tab FEEDTUBE 1 tab BID AV Administration Simple Syrup 15 ml 02/20/21 12:00 Simple Syrup 15 Ml FEEDTUBE PRN PRN Hypoglycemia Simple Syrup 30 ml 02/20/21 12:00 Simple Syrup 15 Ml FEEDTUBE PRN PRN Hypoglycemia Sodium Bicarbonate 325 mg 02/20/21 12:00 Sodium Bicarbonate 325 Mg Tab FEEDTUBE PRN PRN For Clogged Feeding Tube Sodium Chloride 10 ml 02/12/21 22:00 02/21/21 09:24 Sodium Chloride 0.9% 10 Ml Flush Syringe IV 10 ml BID AV Administration Sodium Chloride 10 ml 02/12/21 20:45 Sodium Chloride 0.9% 10 Ml Flush Syringe IV PRN PRN LINE FLUSH
[2021-02-21] MEDS: HEPARIN/ 0.45% NACL DRIP 25,000 UNIT/500 ML BAG IV SCH (17:32)
--- NOTE | 2021-02-21 19:37 | Progress Note ---
Assessment and Plan This is a 62-year-old female with COPD, CHF, HTN, GERD, breast cancer, arthritis HLD, type 2 diabetes mellitus admitted s/p cardiac arrest with acute exacerbation of congestive heart failure, acute hypoxic respiratory failure, sepsis, acute kidney injury and electrolyte imbalances A/P --Acute hypoxic respiratory failure, Patient initiated on continuous BiPAP. Now intubated on 02/19/21 Pulmonary critical care following, wean off from vent as tolerated --Acute metabolic encephalopathy -Fall/aspiration precautions -Reorientation as needed -02/12 CT head shows no acute intracranial abnormality -Likely due to severe hypoxia --S/p cardiac arrest -02/13 echocardiogram shows left ventricular function moderate to severely decreased, LVEF 20 to 25%, right ventricle systolic function normal, mitral valve annular calcification, thickened and calcified leaflets, mild to moderate mitral valve regurgitation, RVSP 11 mmHg, trace TR, large left pleural effusion with no pericardial effusion -Cardiology consulted, appreciate recommendations --Acute on chronic systolic heart failure -Cardiology consulted -Per cardiology 03/2018 echocardiogram showed ejection fraction of 45 to 50%, trace MR, trace TR -02/13 echocardiogram shows left ventricular function moderate to severely decreased, LVEF 20 to 25%, right ventricle systolic function normal, mitral valve annular calcification, thickened and calcified leaflets, mild to moderate mitral valve regurgitation, RVSP 11 mmHg, trace TR, large left pleural effusion with no pericardial effusion -s/p IV lasix 40 mg twice daily s/p milrinone per cardiology -strict I&O -asencio --Cardiogenic shock -as needed Levophed -Blood pressure monitoring per protocol --Hypertension -Patient has a history of hypertension -All antihypertensives now on hold. Patient currently on pressor support --Atrial fibrillation, initiated on heparin drip, rate controlled Cardiology following --Elevated troponin/NSTEMI type II -Cardiology consulted -Likely due to cardiac arrest and renal failure -Trend trop --Hyperlipidemia -Resume home statin --Bilateral pleural effusions -evidenced on cxr -s/p lasix in ED -Status post lasix IV, sprinolactone PO -Consider thoracentesis if no improvement in respiratory status: Will defer to pulmonary --Hyperkalemia, resolved -s/p Kayexalate -Trend potassium --Hypernatremia, gentle IV fluid, monitor BMP Free water with tube feeding --Acute kidney injury, -Presented with a BUN/creatinine of 1.7/, 02/13 BUN/creatinine 2.2/29 -Strict urine output -Avoid nephrotoxic medications -Renally dose medications -Daily weights -Nephrology consult --Lactic acidosis, resolved -Presented with a lactic acid of 4.5, 02/13 lactic acid 0.8 --Sepsis -abx therapy -Presented with hypoxia, tachycardia, hypotension, leukocytosis -BC x2 neg -Tracheal aspirate pending --h/o Breast CA, need outpatient follow-up --DM type II -SSI, long acting insulin (titrate as needed) -Hbg A1C -Acccuchecks -Hypoglycemic protocol -CC consistent carbohydrate --Bilateral lower extremity skin lacerations -WOCN consulted -Wound care per nursing --Anxiety -Xanax prn --DVT prophylaxis, heparin The high probability of a clinically significant, sudden or life threatening deterioration of the [cardio/respiratory] system(s) required my full and direct attention, intervention and personal management. The aggregate critical care time was [35] minutes. This time is in addition to time spent performing reported procedures but includes the following: [x] Data Review and interpretation [x] Patient assessment and monitoring of vital signs [x] Documentation [x] Medication orders and managementdiet DVT/GI prophylaxis: PPI, SCDs to bilateral ultrasound in bed, heparin Disposition: Continue care in ICU, Guarded prognosis Lines: CVL, asencio Brief history This is a 62-year-old female with COPD, CHF, HTN, GERD, breast cancer, arthritis HLD, type 2 diabetes mellitus who presented to the emergency department on 02/12 with complaints of severe shortness of breath and upon presentation patient assistance duration was 70% despite being on BiPAP and was electively intubated. After intubation patient had cardiac arrest with PEA and ACLS was initiated for approximately 5 minutes with achievement of ROSC. Patient later self extubated and was placed back on BiPAP. Work-up in the emergency department revealed leukocytosis, lactic acidosis, and CXR showed bilateral pleural effusions with pulmonary edema, elevated proBNP, elevated troponins. Patient was admitted to the hospital service s/p cardiac arrest, acute hypoxic respiratory failure, acute exacerbation of CHF and sepsis with consults to cardiology and CCM. Daily clinical course: 02/13: Patient weaned to high flow nasal cannula, echocardiogram pending, Levophed titrated off, COVID-19 PCR negative 02/14: Patient was transferred to stepdown status, per cardiology patient received IV Lasix to help with pleural effusion seen on echocardiogram. Echocardiogram read with ejection fraction of 20 to 25%. Patient was started on Xanax to help with anxiety. Long-acting insulin increased due to persistent hyperglycemia 02/15: Patient placed back on BiPAP, started to have respiratory decompensation. Spoke with cardiology and pulmonology, will start milrinone, continue Lasix, low threshold for reintubation. 02/16: milrinone drip is running, continue : Patient seen and examined with at the bedside, patient continues to be very agitated, given sedation, low threshold for reintubation. Diuresis with Lasix. 02/17: Patient remains on continuous BiPAP and milrinone drip. She took off her BiPAP mask this morning which was immediately replaced by respiratory therapist. Patient remains lethargic and slightly restless. H&H remained stable, creatinine continue to trend up-consult nephrology, follow BMP. 02/18/21; patient on Bumex and milrinone drip. Also initiated on D5W at 30 mils per hour as patient unable to eat because she is on continuous BiPAP and sodium level 150 today, repeat BMP tomorrow. Poor prognosis 02/19/21: Patient intubated today and transferred to ICU. Continue to follow clinically, poor prognosis. Hold milrinone and Lasix. Patient is requiring pressor support. Poor prognosis 02/20/21: platient placed on heparin drip for atrial fib. Continue supportive care, wean off from vent as tolerated. Overall prognosis is very poor. 02/21/21: Remains on heparin drip and pressor support. Patient on mechanical ventilation. Continue supportive care. Follow daily labs. Subjective Date of service: 02/21/21 Principal diagnosis: Pulmonary Edema Interval history: Patient seen and examined. Medical records and medication list reviewed. Vitals noted, patient remains intubated Being monitored in the ICU, heparin drip ongoing, on Levophed Discussed plan of care at bedside with patient's RN and with critical care Objective - Exam Narrative Exam: GENERAL: Morbidly obese white female lying on bed intubated and sedated HEENT: Normocephalic. Atraumatic. No conjunctival congestion or icterus. Patient has moist mucous membranes. NECK: Supple. Trachea midline. CHEST/LUNGS: On mechanical ventilation, coarse breath sounds auscultated bilaterally HEART/CARDIOVASCULAR: Regular in rate and rhythm. S1 and S2 positive. ABDOMEN: Abdomen is soft, nontender. Patient has normal bowel sounds. SKIN: There is no rash. Warm and dry. NEURO: Sedated MUSCULOSKELETAL: No joint effusion or tenderness. EXTRIMITY: Lower extremity wound with a dry scaly skin, + edema PSYCH: Unable to assess - Constitutional Vitals: Vital Signs - 12hr 02/21/21 02/21/21 02/21/21 07:43 08:00 08:30 Temperature 97.9 F Pulse Rate 93 H 90 Pulse Rate [ 90 From Monitor] Respiratory 18 18 Rate Blood Pressure 105/54 113/47 O2 Sat by Pulse 96 94 Oximetry 02/21/21 02/21/21 02/21/21 09:00 09:30 10:00 Temperature Pulse Rate 92 H 94 H 90 Pulse Rate [ From Monitor] Respiratory 18 18 18 Rate Blood Pressure 96/52 97/53 86/57 O2 Sat by Pulse 97 96 Oximetry 02/21/21 02/21/21 02/21/21 10:30 11:00 11:30 Temperature Pulse Rate 97 H 91 H 84 Pulse Rate [ From Monitor] Respiratory 18 18 18 Rate Blood Pressure 109/47 113/43 109/41 O2 Sat by Pulse Oximetry 02/21/21 02/21/21 02/21/21 11:40 12:00 12:30 Temperature 98.5 F Pulse Rate 88 82 77 Pulse Rate [ 88 From Monitor] Respiratory 18 18 Rate Blood Pressure 121/40 110/38 95/39 O2 Sat by Pulse 99 96 97 Oximetry 02/21/21 02/21/21 02/21/21 13:00 13:30 14:00 Temperature Pulse Rate 71 82 85 Pulse Rate [ From Monitor] Respiratory 18 18 18 Rate Blood Pressure 112/51 106/44 119/57 O2 Sat by Pulse 99 100 100 Oximetry 02/21/21 02/21/21 02/21/21 14:30 15:00 15:29 Temperature Pulse Rate 83 90 87 Pulse Rate [ From Monitor] Respiratory 18 18 Rate Blood Pressure 115/48 108/46 115/42 O2 Sat by Pulse 100 100 100 Oximetry 02/21/21 02/21/21 02/21/21 15:30 16:00 16:30 Temperature 99 F Pulse Rate 86 85 93 H Pulse Rate [ 87 From Monitor] Respiratory 18 18 18 Rate Blood Pressure 111/47 124/46 105/47 O2 Sat by Pulse 100 100 99 Oximetry 02/21/21 02/21/21 02/21/21 17:00 17:30 18:00 Temperature Pulse Rate 90 94 H 95 H Pulse Rate [ From Monitor] Respiratory 18 17 18 Rate Blood Pressure 114/53 127/53 122/51 O2 Sat by Pulse 100 99 98 Oximetry - Labs CBC & Chem 7: 02/22/21 04:00 02/23/21 04:00 Labs: Abnormal lab results 02/20/21 02/20/21 02/21/21 Range/Units 20:45 23:21 02:53 WBC (4.5-11.0) K/mm3 RBC (3.65-5.03) M/mm3 Hgb (10.1-14.3) gm/dl Hct (30.3-42.9) % RDW (13.2-15.2) % Lymph % (Auto) (13.4-35.0) % Dickinson % (Auto) (0.0-7.3) % Dickinson # (Auto) (0.0-0.8) K/mm3 Seg Neutrophils % (40.0-70.0) % Seg Neutrophils # (1.8-7.7) K/mm3 Heparin Anti-Xa Level 1.36 H (0.3-0.7) U.I./ml POC ABG pO2 73.5 L (83-108) mmHg ABG Hemoglobin 8.7 L (12.0-17.5) ABG Oxyhemoglobin 93.7 L (94-98) ABG Chloride 111.0 H (98-107) mmol/L ABG Glucose 195 H (65-95) mg/dL Sodium (137-145) mmol/L Chloride (98-107) mmol/L BUN (7-17) mg/dL Creatinine (0.6-1.2) mg/dL Glucose (65-100) mg/dL POC Glucose 157 H (70-105) mg/dL Troponin T (0.00-0.029) ng/mL Arterial Blood Glucose 195 H (65-95) mg/dL 02/21/21 02/21/21 02/21/21 Range/Units 05:06 05:58 06:10 WBC 12.8 H (4.5-11.0) K/mm3 RBC 2.91 L (3.65-5.03) M/mm3 Hgb 8.2 L (10.1-14.3) gm/dl Hct 25.7 L (30.3-42.9) % RDW 16.3 H (13.2-15.2) % Lymph % (Auto) 9.2 L (13.4-35.0) % Dickinson % (Auto) 7.9 H (0.0-7.3) % Dickinson # (Auto) 1.0 H (0.0-0.8) K/mm3 Seg Neutrophils % 80.1 H (40.0-70.0) % Seg Neutrophils # 10.2 H (1.8-7.7) K/mm3 Heparin Anti-Xa Level (0.3-0.7) U.I./ml POC ABG pO2 (83-108) mmHg ABG Hemoglobin (12.0-17.5) ABG Oxyhemoglobin (94-98) ABG Chloride (98-107) mmol/L ABG Glucose (65-95) mg/dL Sodium 147 H (137-145) mmol/L Chloride 108.4 H (98-107) mmol/L BUN 80 H (7-17) mg/dL Creatinine 3.2 H (0.6-1.2) mg/dL Glucose 220 H (65-100) mg/dL POC Glucose 202 H (70-105) mg/dL Troponin T 0.086 H (0.00-0.029) ng/mL Arterial Blood Glucose (65-95) mg/dL 02/21/21 02/21/21 02/21/21 Range/Units 06:10 11:52 17:49 WBC (4.5-11.0) K/mm3 RBC (3.65-5.03) M/mm3 Hgb (10.1-14.3) gm/dl Hct (30.3-42.9) % RDW (13.2-15.2) % Lymph % (Auto) (13.4-35.0) % Dickinson % (Auto) (0.0-7.3) % Dickinson # (Auto) (0.0-0.8) K/mm3 Seg Neutrophils % (40.0-70.0) % Seg Neutrophils # (1.8-7.7) K/mm3 Heparin Anti-Xa Level 1.07 H (0.3-0.7) U.I./ml POC ABG pO2 (83-108) mmHg ABG Hemoglobin (12.0-17.5) ABG Oxyhemoglobin (94-98) ABG Chloride (98-107) mmol/L ABG Glucose (65-95) mg/dL Sodium (137-145) mmol/L Chloride (98-107) mmol/L BUN (7-17) mg/dL Creatinine (0.6-1.2) mg/dL Glucose (65-100) mg/dL POC Glucose 240 H 243 H (70-105) mg/dL Troponin T (0.00-0.029) ng/mL Arterial Blood Glucose (65-95) mg/dL HEART Score - HEART Score EKG: Non-specific Age: > 65 Risk factors: 1-2 risk factors Troponin: Troponin T 0.086 ng/mL (0.00-0.029) H 02/21/21 05:58 Troponin: < normal limit - Critical Actions Critical Actions: 4-6 pts:12-16.6% risk of adverse cardiac event. Should be admitted
--- NOTE | 2021-02-21 20:51 | Progress Note ---
Assessment and Plan Imp: 1. Acute/chronic systolic CHF 2. Dilated CMP 3. Acute respiratory failure, hypoxia 4. ANGELA 5. Obesity 6. Pleural effusion Rec: 1. Holding diuretics due to ANGELA 2. s/p 5 days of Rocephin/Azithromycin 3. Decrease PEEP to +10 4. DVT PPx 5. Further plans pending clinical course; prognosis guarded to poor CCt 31 minutes No family present Subjective Date of service: 02/21/21 Principal diagnosis: Pulmonary Edema Interval history: Sedated on Propofol. Off pressors. Cannot give history. Active Medications Acetaminophen (Acetaminophen 325 Mg Tab) 650 mg PO Q4H PRN PRN Reason: Pain MILD(1-3)/Fever >100.5/CHAMB[place] Last Admin: 02/20/21 16:04 Dose: 650 mg Documented by: Lipase/Protease/Amylase (Lipase 10,500/Protease 25,000/Amylase 43,750 (Units) Dr Cap) 1 each FEEDTUBE PRN PRN PRN Reason: For Clogged Feeding Tube Aspirin (Aspirin 81 Mg Tab Chew) 81 mg PO QDAY [facility] Last Admin: 02/21/21 09:24 Dose: 81 mg Documented by: Atorvastatin Calcium (Atorvastatin 40 Mg Tab) 40 mg PO QHS [facility] Last Admin: 02/20/21 21:16 Dose: 40 mg Documented by: Dextrose (Dextrose 50% In Water (25gm) 50 Ml Syringe) 50 ml IV Q30MIN PRN; Protocol PRN Reason: Hypoglycemia Famotidine (Famotidine 20 Mg/2 Ml Inj) 20 mg IV DAILY [facility] Last Admin: 02/21/21 09:24 Dose: 20 mg Documented by: Heparin Sodium (Porcine) (Heparin 10,000 Units/10 Ml Vial) 3,900 unit 40 unit/kg (3900 unit) IV Q6H PRN PRN Reason: Anti-Xa Assay < 0.1 units/ml Hydrophilic Ointment (Lip Therapy Vaseline) 1 applic TP Q2HR PRN PRN Reason: Dry Lips Propofol (Diprivan 10 Mg/Ml) 1,000 mg in 100 mls @ 2.946 mls/hr IV TITR [facility]; Protocol Last Admin: 02/21/21 17:33 Dose: 20 mcg/kg/min, 11.784 mls/hr Documented by: Dobutamine HCl/Dextrose (Dobutrex Drip 500mg/D5w 250ml) 500 mg in 250 mls @ 14.73 mls/hr IV DIRECT AV; Protocol Last Infusion: 02/20/21 19:00 Dose: 0 mcg/kg/min, 0 mls/hr Documented by: NORepinephrine/NS 8 MG-250 ML (Norepinephrine/Ns 8 Mg-250 Ml (Double Conc)) 8 mg in 250 mls @ 3.75 mls/hr IV TITRATE AV; Protocol Last Titration: 02/21/21 06:00 Dose: 0 mcg/min, 0 mls/hr Documented by: Heparin Sodium/Sodium Chloride (Heparin/ 0.45% Nacl-25,000 Unit/500 Ml) 25,000 unit in 500 mls @ 29 mls/hr IV TITR AV; Protocol Last Admin: 02/21/21 17:32 Dose: 1,050 units/hr, 21 mls/hr Documented by: Insulin Glargine (Insulin Glargine 100 Units/Ml) 10 units SUB-Q QAMDIAB AV Last Admin: 02/21/21 08:57 Dose: 10 units Documented by: Insulin Human Lispro (Insulin Lispro 100 Unit/Ml) 0 unit SUB-Q Q6HR AV; Protocol Last Admin: 02/21/21 17:49 Dose: 3 unit Documented by: Metoclopramide HCl (Metoclopramide 10 Mg/2 Ml Inj) 5 mg IV Q6H PRN PRN Reason: Nausea And Vomiting Multi-Ingred Cream/Lotion/Oil/Oint (Mineral Oil/Petrolatum, White Ophth Oint 3.5 Gm) 1 applic OU Q4HR PRN PRN Reason: Dry Eye(s) Ondansetron HCl (Ondansetron 4 Mg/2 Ml Inj) 4 mg IV Q8H PRN PRN Reason: Nausea And Vomiting Phenyleph/Shark Oil/Min Oil/Petrol (Pe/Mo/Pet,Wh 10 Applic/28 Gm Tube) 1 applic MN Q6HR PRN PRN Reason: Hemorrhoids Senna/Docusate Sodium (Sennosides/Docusate Sodium 8.6/50 Mg Tab) 1 tab FEEDTUBE BID AV Last Admin: 02/21/21 09:24 Dose: 1 tab Documented by: Simple Syrup (Simple Syrup 15 Ml) 15 ml FEEDTUBE PRN PRN PRN Reason: Hypoglycemia Simple Syrup (Simple Syrup 15 Ml) 30 ml FEEDTUBE PRN PRN PRN Reason: Hypoglycemia Sodium Bicarbonate (Sodium Bicarbonate 325 Mg Tab) 325 mg FEEDTUBE PRN PRN PRN Reason: For Clogged Feeding Tube Sodium Chloride (Sodium Chloride 0.9% 10 Ml Flush Syringe) 10 ml IV BID AV Last Admin: 02/21/21 09:24 Dose: 10 ml Documented by: Sodium Chloride (Sodium Chloride 0.9% 10 Ml Flush Syringe) 10 ml IV PRN PRN PRN Reason: LINE FLUSH Objective Vital Signs - 12hr 02/21/21 02/21/21 02/21/21 09:00 09:30 10:00 Temperature Pulse Rate 92 H 94 H 90 Pulse Rate [ From Monitor] Respiratory 18 18 18 Rate Blood Pressure 96/52 97/53 86/57 O2 Sat by Pulse 97 96 Oximetry 02/21/21 02/21/21 02/21/21 10:30 11:00 11:30 Temperature Pulse Rate 97 H 91 H 84 Pulse Rate [ From Monitor] Respiratory 18 18 18 Rate Blood Pressure 109/47 113/43 109/41 O2 Sat by Pulse Oximetry 02/21/21 02/21/21 02/21/21 11:40 12:00 12:30 Temperature 98.5 F Pulse Rate 88 82 77 Pulse Rate [ 88 From Monitor] Respiratory 18 18 Rate Blood Pressure 121/40 110/38 95/39 O2 Sat by Pulse 99 96 97 Oximetry 02/21/21 02/21/21 02/21/21 13:00 13:30 14:00 Temperature Pulse Rate 71 82 85 Pulse Rate [ From Monitor] Respiratory 18 18 18 Rate Blood Pressure 112/51 106/44 119/57 O2 Sat by Pulse 99 100 100 Oximetry 02/21/21 02/21/21 02/21/21 14:30 15:00 15:29 Temperature Pulse Rate 83 90 87 Pulse Rate [ From Monitor] Respiratory 18 18 Rate Blood Pressure 115/48 108/46 115/42 O2 Sat by Pulse 100 100 100 Oximetry 02/21/21 02/21/21 02/21/21 15:30 16:00 16:30 Temperature 99 F Pulse Rate 86 85 93 H Pulse Rate [ 87 From Monitor] Respiratory 18 18 18 Rate Blood Pressure 111/47 124/46 105/47 O2 Sat by Pulse 100 100 99 Oximetry 0702/21/21 02/21/21 17:00 17:30 18:00 Temperature Pulse Rate 90 94 H 95 H Pulse Rate [ From Monitor] Respiratory 18 17 18 Rate Blood Pressure 114/53 127/53 122/51 O2 Sat by Pulse 100 99 98 Oximetry 02/21/21 02/21/21 02/21/21 19:00 19:30 19:46 Temperature 99.2 F Pulse Rate 84 81 Pulse Rate [ From Monitor] Respiratory 18 18 Rate Blood Pressure 107/52 98/42 O2 Sat by Pulse 100 100 Oximetry 02/21/21 20:00 Temperature Pulse Rate 73 Pulse Rate [ From Monitor] Respiratory 18 Rate Blood Pressure 99/45 O2 Sat by Pulse 100 Oximetry Constitutional: other (intubated, sedated, on ventilator) Eyes: non-icteric ENT: oropharynx moist Neck: supple, other (large in circumference) Effort: normal Ascultation: Bilateral: other (coarse BS bilaterally) Cardiovascular: other (RRR with no mrg) Gastrointestinal: normoactive bowel sounds, soft, non-tender, non-distended Integumentary: normal Extremities: no cyanosis, pink and warm, anasarca Neurologic: unable to assess Psychiatric: other (unable to assess) CBC and BMP: 02/21/21 06:10 02/21/21 05:58 ABG, PT/INR, D-dimer: ABG ABG pH 7.425 (7.320-7.450) 02/21/21 02:53 POC ABG pCO2 36.7 mmHg (32.0-48.0) 02/21/21 02:53 POC ABG pO2 73.5 mmHg (83-108) L 02/21/21 02:53 POC ABG HCO3 23.5 02/21/21 02:53 ABG O2 Saturation 94.5 (0-100) 02/21/21 02:53 PT/INR, D-dimer PT 19.5 Sec. (12.2-14.9) H 02/20/21 Unknown INR 1.60 (0.87-1.13) H 02/20/21 Unknown Abnormal lab findings: Abnormal Labs 02/12/21 02/12/21 02/12/21 10:45 11:59 12:20 WBC RBC Hgb Hct MCHC RDW Plt Count Lymph % (Auto) [place] % (Auto) Lymph # (Auto) [place] # (Auto) Seg Neutrophils % Seg Neuts % (Manual) Lymphocytes % (Manual) Seg Neutrophils # Seg Neutrophils # Man Lymphocytes # (Manual) Monocytes # (Manual) Basophils # (Manual) PT INR APTT Heparin Anti-Xa Level ABG pH 7.265 L POC ABG pCO2 49.9 H POC ABG pO2 168.3 H ABG Hemoglobin 10.1 L ABG Oxyhemoglobin 98.5 H ABG Potassium ABG Chloride ABG Glucose 330 H Carboxyhemoglobin 0.3 L Sodium Potassium Chloride Carbon Dioxide BUN Creatinine Glucose POC Glucose 291 H Hemoglobin A1c Lactic Acid Calcium Direct Bilirubin Troponin T 0.058 H NT-Pro-B Natriuret Pep Albumin LDL Cholesterol Direct Arterial Blood Glucose 330 H Urine WBC (Auto) Crossmatch 02/12/21 02/12/21 02/12/21 12:20 12:20 12:20 WBC RBC Hgb Hct MCHC RDW Plt Count Lymph % (Auto) [place] % (Auto) Lymph # (Auto) [place] # (Auto) Seg Neutrophils % Seg Neuts % (Manual) Lymphocytes % (Manual) Seg Neutrophils # Seg Neutrophils # Man Lymphocytes # (Manual) Monocytes # (Manual) Basophils # (Manual) PT INR APTT 22.9 L Heparin Anti-Xa Level ABG pH POC ABG pCO2 POC ABG pO2 ABG Hemoglobin ABG Oxyhemoglobin ABG Potassium ABG Chloride ABG Glucose Carboxyhemoglobin Sodium Potassium Chloride Carbon Dioxide 21 L BUN 20 H Creatinine 1.7 H Glucose 278 H POC Glucose Hemoglobin A1c Lactic Acid 4.50 H* Calcium Direct Bilirubin 0.3 H Troponin T 0.056 H NT-Pro-B Natriuret Pep Albumin 3.4 L LDL Cholesterol Direct 40 L Arterial Blood Glucose Urine WBC (Auto) Crossmatch 02/12/21 02/12/21 02/12/21 12:20 14:25 16:46 WBC 30.4 H RBC 3.34 L Hgb 9.2 L Hct MCHC 29 L RDW 17.0 H Plt Count 458 H Lymph % (Auto) [place] % (Auto) Lymph # (Auto) [place] # (Auto) Seg Neutrophils % Seg Neuts % (Manual) 90.5 H Lymphocytes % (Manual) 0.5 L Seg Neutrophils # Seg Neutrophils # Man 27.5 H Lymphocytes # (Manual) 0.2 L Monocytes # (Manual) 1.8 H Basophils # (Manual) 0.2 H PT INR APTT Heparin Anti-Xa Level ABG pH POC ABG pCO2 POC ABG pO2 ABG Hemoglobin ABG Oxyhemoglobin ABG Potassium ABG Chloride ABG Glucose Carboxyhemoglobin Sodium Potassium Chloride Carbon Dioxide BUN Creatinine Glucose POC Glucose Hemoglobin A1c Lactic Acid 4.50 H* Calcium Direct Bilirubin Troponin T NT-Pro-B Natriuret Pep 6717 H Albumin LDL Cholesterol Direct Arterial Blood Glucose Urine WBC (Auto) Crossmatch 02/12/21 02/12/21 02/12/21 16:56 20:35 Unknown WBC RBC Hgb Hct MCHC RDW Plt Count Lymph % (Auto) [place] % (Auto) Lymph # (Auto) [place] # (Auto) Seg Neutrophils % Seg Neuts % (Manual) Lymphocytes % (Manual) Seg Neutrophils # Seg Neutrophils # Man Lymphocytes # (Manual) Monocytes # (Manual) Basophils # (Manual) PT INR APTT Heparin Anti-Xa Level ABG pH 7.275 L POC ABG pCO2 POC ABG pO2 185.8 H ABG Hemoglobin 9.5 L ABG Oxyhemoglobin 98.6 H ABG Potassium 4.7 H ABG Chloride ABG Glucose 330 H Carboxyhemoglobin 0.3 L Sodium Potassium Chloride Carbon Dioxide BUN Creatinine Glucose POC Glucose 307 H Hemoglobin A1c Lactic Acid Calcium Direct Bilirubin Troponin T NT-Pro-B Natriuret Pep Albumin LDL Cholesterol Direct Arterial Blood Glucose 330 H Urine WBC (Auto) 42.0 H Crossmatch 02/13/21 02/13/21 02/13/21 00:50 08:09 08:53 WBC RBC Hgb Hct MCHC RDW Plt Count Lymph % (Auto) [place] % (Auto) Lymph # (Auto) [place] # (Auto) Seg Neutrophils % Seg Neuts % (Manual) Lymphocytes % (Manual) Seg Neutrophils # Seg Neutrophils # Man Lymphocytes # (Manual) Monocytes # (Manual) Basophils # (Manual) PT INR APTT Heparin Anti-Xa Level ABG pH POC ABG pCO2 POC ABG pO2 110.6 H ABG Hemoglobin 9.1 L ABG Oxyhemoglobin ABG Potassium 5.0 H ABG Chloride ABG Glucose 338 H Carboxyhemoglobin 0.1 L Sodium Potassium Chloride Carbon Dioxide BUN Creatinine Glucose POC Glucose 278 H 289 H Hemoglobin A1c Lactic Acid Calcium Direct Bilirubin Troponin T NT-Pro-B Natriuret Pep Albumin LDL Cholesterol Direct Arterial Blood Glucose 338 H Urine WBC (Auto) Crossmatch 02/13/21 02/13/21 02/13/21 10:32 12:19 16:53 WBC RBC Hgb Hct MCHC RDW Plt Count Lymph % (Auto) [place] % (Auto) Lymph # (Auto) [place] # (Auto) Seg Neutrophils % Seg Neuts % (Manual) Lymphocytes % (Manual) Seg Neutrophils # Seg Neutrophils # Man Lymphocytes # (Manual) Monocytes # (Manual) Basophils # (Manual) PT INR APTT Heparin Anti-Xa Level ABG pH POC ABG pCO2 POC ABG pO2 ABG Hemoglobin ABG Oxyhemoglobin ABG Potassium ABG Chloride ABG Glucose Carboxyhemoglobin Sodium Potassium Chloride Carbon Dioxide BUN Creatinine Glucose POC Glucose 295 H 268 H Hemoglobin A1c Lactic Acid Calcium Direct Bilirubin Troponin T 0.069 H D NT-Pro-B Natriuret Pep Albumin LDL Cholesterol Direct Arterial Blood Glucose Urine WBC (Auto) Crossmatch 02/13/21 02/13/21 02/13/21 18:00 21:30 Unknown WBC 24.8 H RBC 2.99 L Hgb 8.3 L Hct 26.8 L MCHC RDW 16.4 H Plt Count Lymph % (Auto) [place] % (Auto) Lymph # (Auto) [place] # (Auto) Seg Neutrophils % Seg Neuts % (Manual) 98.0 H Lymphocytes % (Manual) Seg Neutrophils # Seg Neutrophils # Man 24.3 H Lymphocytes # (Manual) 0.0 L Monocytes # (Manual) Basophils # (Manual) PT INR APTT Heparin Anti-Xa Level ABG pH POC ABG pCO2 POC ABG pO2 ABG Hemoglobin ABG Oxyhemoglobin ABG Potassium ABG Chloride ABG Glucose Carboxyhemoglobin Sodium Potassium Chloride Carbon Dioxide BUN Creatinine Glucose POC Glucose 258 H Hemoglobin A1c Lactic Acid Calcium Direct Bilirubin Troponin T 0.051 H D NT-Pro-B Natriuret Pep Albumin LDL Cholesterol Direct Arterial Blood Glucose Urine WBC (Auto) Crossmatch 02/13/21 02/13/21 02/14/21 Unknown Unknown 07:11 WBC RBC Hgb Hct MCHC RDW Plt Count Lymph % (Auto) [place] % (Auto) Lymph # (Auto) [place] # (Auto) Seg Neutrophils % Seg Neuts % (Manual) Lymphocytes % (Manual) Seg Neutrophils # Seg Neutrophils # Man Lymphocytes # (Manual) Monocytes # (Manual) Basophils # (Manual) PT INR APTT Heparin Anti-Xa Level ABG pH POC ABG pCO2 POC ABG pO2 ABG Hemoglobin ABG Oxyhemoglobin ABG Potassium ABG Chloride ABG Glucose Carboxyhemoglobin Sodium Potassium 5.2 H Chloride Carbon Dioxide BUN 29 H Creatinine 2.2 H Glucose 331 H POC Glucose 244 H Hemoglobin A1c 7.0 H Lactic Acid Calcium Direct Bilirubin Troponin T NT-Pro-B Natriuret Pep Albumin 3.1 L LDL Cholesterol Direct Arterial Blood Glucose Urine WBC (Auto) Crossmatch 02/14/21 02/14/21 02/14/21 07:49 07:49 11:37 WBC 25.1 H RBC 2.99 L Hgb 8.5 L Hct 26.6 L MCHC RDW 16.3 H Plt Count Lymph % (Auto) [place] % (Auto) Lymph # (Auto) [place] # (Auto) Seg Neutrophils % Seg Neuts % (Manual) Lymphocytes % (Manual) Seg Neutrophils # Seg Neutrophils # Man Lymphocytes # (Manual) Monocytes # (Manual) Basophils # (Manual) PT INR APTT Heparin Anti-Xa Level ABG pH POC ABG pCO2 POC ABG pO2 ABG Hemoglobin ABG Oxyhemoglobin ABG Potassium ABG Chloride ABG Glucose Carboxyhemoglobin Sodium Potassium Chloride Carbon Dioxide BUN 39 H Creatinine 2.1 H Glucose 253 H POC Glucose 229 H Hemoglobin A1c Lactic Acid Calcium Direct Bilirubin Troponin T NT-Pro-B Natriuret Pep Albumin LDL Cholesterol Direct Arterial Blood Glucose Urine WBC (Auto) Crossmatch 02/14/21 02/14/21 02/15/21 17:04 21:25 05:50 WBC 14.4 H RBC 2.69 L Hgb 7.4 L Hct 24.0 L MCHC RDW 16.3 H Plt Count Lymph % (Auto) [place] % (Auto) Lymph # (Auto) [place] # (Auto) Seg Neutrophils % Seg Neuts % (Manual) Lymphocytes % (Manual) Seg Neutrophils # Seg Neutrophils # Man Lymphocytes # (Manual) Monocytes # (Manual) Basophils # (Manual) PT INR APTT Heparin Anti-Xa Level ABG pH POC ABG pCO2 POC ABG pO2 ABG Hemoglobin ABG Oxyhemoglobin ABG Potassium ABG Chloride ABG Glucose Carboxyhemoglobin Sodium Potassium Chloride Carbon Dioxide BUN Creatinine Glucose POC Glucose 141 H 121 H Hemoglobin A1c Lactic Acid Calcium Direct Bilirubin Troponin T NT-Pro-B Natriuret Pep Albumin LDL Cholesterol Direct Arterial Blood Glucose Urine WBC (Auto) Crossmatch 02/15/21 02/15/21 02/15/21 05:50 07:35 09:09 WBC RBC Hgb Hct MCHC RDW Plt Count Lymph % (Auto) [place] % (Auto) Lymph # (Auto) [place] # (Auto) Seg Neutrophils % Seg Neuts % (Manual) Lymphocytes % (Manual) Seg Neutrophils # Seg Neutrophils # Man Lymphocytes # (Manual) Monocytes # (Manual) Basophils # (Manual) PT INR APTT Heparin Anti-Xa Level ABG pH 7.272 L POC ABG pCO2 53.9 H POC ABG pO2 78.7 L ABG Hemoglobin 8.8 L ABG Oxyhemoglobin 93.0 L ABG Potassium ABG Chloride ABG Glucose 197 H Carboxyhemoglobin 1.8 H Sodium Potassium Chloride 107.1 H Carbon Dioxide BUN 44 H Creatinine 2.3 H Glucose 162 H POC Glucose 182 H Hemoglobin A1c Lactic Acid Calcium Direct Bilirubin Troponin T NT-Pro-B Natriuret Pep Albumin LDL Cholesterol Direct Arterial Blood Glucose 197 H Urine WBC (Auto) Crossmatch 02/15/21 02/15/21 02/15/21 11:30 11:40 16:07 WBC RBC Hgb Hct MCHC RDW Plt Count Lymph % (Auto) [place] % (Auto) Lymph # (Auto) [place] # (Auto) Seg Neutrophils % Seg Neuts % (Manual) Lymphocytes % (Manual) Seg Neutrophils # Seg Neutrophils # Man Lymphocytes # (Manual) Monocytes # (Manual) Basophils # (Manual) PT INR APTT Heparin Anti-Xa Level ABG pH POC ABG pCO2 POC ABG pO2 ABG Hemoglobin ABG Oxyhemoglobin ABG Potassium ABG Chloride ABG Glucose Carboxyhemoglobin Sodium Potassium Chloride Carbon Dioxide BUN Creatinine Glucose POC Glucose 160 H 142 H Hemoglobin A1c Lactic Acid Calcium Direct Bilirubin Troponin T NT-Pro-B Natriuret Pep Albumin LDL Cholesterol Direct Arterial Blood Glucose Urine WBC (Auto) Crossmatch See Detail 02/15/21 02/16/21 02/16/21 21:52 08:09 11:51 WBC RBC Hgb Hct MCHC RDW Plt Count Lymph % (Auto) [place] % (Auto) Lymph # (Auto) [place] # (Auto) Seg Neutrophils % Seg Neuts % (Manual) Lymphocytes % (Manual) Seg Neutrophils # Seg Neutrophils # Man Lymphocytes # (Manual) Monocytes # (Manual) Basophils # (Manual) PT INR APTT Heparin Anti-Xa Level ABG pH POC ABG pCO2 POC ABG pO2 ABG Hemoglobin ABG Oxyhemoglobin ABG Potassium ABG Chloride ABG Glucose Carboxyhemoglobin Sodium Potassium Chloride Carbon Dioxide BUN Creatinine Glucose POC Glucose 143 H 167 H 186 H Hemoglobin A1c Lactic Acid Calcium Direct Bilirubin Troponin T NT-Pro-B Natriuret Pep Albumin LDL Cholesterol Direct Arterial Blood Glucose Urine WBC (Auto) Crossmatch 02/16/21 02/16/21 02/16/21 14:45 14:45 16:29 WBC 15.4 H RBC 3.11 L Hgb 9.1 L Hct 27.8 L MCHC RDW 15.9 H Plt Count Lymph % (Auto) 3.6 L [place] % (Auto) 9.0 H Lymph # (Auto) 0.6 L [place] # (Auto) 1.4 H Seg Neutrophils % 87.3 H Seg Neuts % (Manual) Lymphocytes % (Manual) Seg Neutrophils # 13.4 H Seg Neutrophils # Man Lymphocytes # (Manual) Monocytes # (Manual) Basophils # (Manual) PT INR APTT Heparin Anti-Xa Level ABG pH POC ABG pCO2 POC ABG pO2 ABG Hemoglobin ABG Oxyhemoglobin ABG Potassium ABG Chloride ABG Glucose Carboxyhemoglobin Sodium Potassium Chloride Carbon Dioxide BUN 53 H Creatinine 2.5 H Glucose 201 H POC Glucose 180 H Hemoglobin A1c Lactic Acid Calcium Direct Bilirubin Troponin T NT-Pro-B Natriuret Pep Albumin LDL Cholesterol Direct Arterial Blood Glucose Urine WBC (Auto) Crossmatch 02/16/21 02/17/21 02/17/21 21:33 05:38 05:38 WBC 13.4 H RBC 2.91 L Hgb 8.4 L Hct 25.7 L MCHC RDW 15.8 H Plt Count Lymph % (Auto) [place] % (Auto) Lymph # (Auto) [place] # (Auto) Seg Neutrophils % Seg Neuts % (Manual) Lymphocytes % (Manual) Seg Neutrophils # Seg Neutrophils # Man Lymphocytes # (Manual) Monocytes # (Manual) Basophils # (Manual) PT INR APTT Heparin Anti-Xa Level ABG pH POC ABG pCO2 POC ABG pO2 ABG Hemoglobin ABG Oxyhemoglobin ABG Potassium ABG Chloride ABG Glucose Carboxyhemoglobin Sodium 146 H Potassium Chloride 108.3 H Carbon Dioxide BUN 55 H Creatinine 2.5 H Glucose 169 H POC Glucose 164 H Hemoglobin A1c Lactic Acid Calcium Direct Bilirubin Troponin T NT-Pro-B Natriuret Pep Albumin LDL Cholesterol Direct Arterial Blood Glucose Urine WBC (Auto) Crossmatch 02/17/21 02/17/21 02/17/21 07:28 12:12 15:38 WBC RBC Hgb Hct MCHC RDW Plt Count Lymph % (Auto) [place] % (Auto) Lymph # (Auto) [place] # (Auto) Seg Neutrophils % Seg Neuts % (Manual) Lymphocytes % (Manual) Seg Neutrophils # Seg Neutrophils # Man Lymphocytes # (Manual) Monocytes # (Manual) Basophils # (Manual) PT INR APTT Heparin Anti-Xa Level ABG pH POC ABG pCO2 POC ABG pO2 ABG Hemoglobin ABG Oxyhemoglobin ABG Potassium ABG Chloride ABG Glucose Carboxyhemoglobin Sodium Potassium Chloride Carbon Dioxide BUN Creatinine Glucose POC Glucose 142 H 156 H 161 H Hemoglobin A1c Lactic Acid Calcium Direct Bilirubin Troponin T NT-Pro-B Natriuret Pep Albumin LDL Cholesterol Direct Arterial Blood Glucose Urine WBC (Auto) Crossmatch 02/17/21 02/18/21 02/18/21 21:42 07:10 07:10 WBC RBC 2.92 L Hgb 8.6 L Hct 26.0 L MCHC RDW 15.8 H Plt Count Lymph % (Auto) 5.8 L [place] % (Auto) Lymph # (Auto) 0.5 L [place] # (Auto) Seg Neutrophils % 86.6 H Seg Neuts % (Manual) Lymphocytes % (Manual) Seg Neutrophils # 8.0 H Seg Neutrophils # Man Lymphocytes # (Manual) Monocytes # (Manual) Basophils # (Manual) PT INR APTT Heparin Anti-Xa Level ABG pH POC ABG pCO2 POC ABG pO2 ABG Hemoglobin ABG Oxyhemoglobin ABG Potassium ABG Chloride ABG Glucose Carboxyhemoglobin Sodium 150 H Potassium Chloride 110.3 H Carbon Dioxide BUN 63 H Creatinine 2.5 H Glucose 168 H POC Glucose 131 H Hemoglobin A1c Lactic Acid Calcium Direct Bilirubin Troponin T 0.057 H NT-Pro-B Natriuret Pep Albumin LDL Cholesterol Direct Arterial Blood Glucose Urine WBC (Auto) Crossmatch 02/18/21 02/18/21 02/18/21 08:28 11:51 17:05 WBC RBC Hgb Hct MCHC RDW Plt Count Lymph % (Auto) [place] % (Auto) Lymph # (Auto) [place] # (Auto) Seg Neutrophils % Seg Neuts % (Manual) Lymphocytes % (Manual) Seg Neutrophils # Seg Neutrophils # Man Lymphocytes # (Manual) Monocytes # (Manual) Basophils # (Manual) PT INR APTT Heparin Anti-Xa Level ABG pH POC ABG pCO2 POC ABG pO2 ABG Hemoglobin ABG Oxyhemoglobin ABG Potassium ABG Chloride ABG Glucose Carboxyhemoglobin Sodium Potassium Chloride Carbon Dioxide BUN Creatinine Glucose POC Glucose 150 H 167 H 144 H Hemoglobin A1c Lactic Acid Calcium Direct Bilirubin Troponin T NT-Pro-B Natriuret Pep Albumin LDL Cholesterol Direct Arterial Blood Glucose Urine WBC (Auto) Crossmatch 02/18/21 02/19/21 02/19/21 21:47 05:20 07:52 WBC RBC Hgb Hct MCHC RDW Plt Count Lymph % (Auto) [place] % (Auto) Lymph # (Auto) [place] # (Auto) Seg Neutrophils % Seg Neuts % (Manual) Lymphocytes % (Manual) Seg Neutrophils # Seg Neutrophils # Man Lymphocytes # (Manual) Monocytes # (Manual) Basophils # (Manual) PT INR APTT Heparin Anti-Xa Level ABG pH POC ABG pCO2 POC ABG pO2 ABG Hemoglobin ABG Oxyhemoglobin ABG Potassium ABG Chloride ABG Glucose Carboxyhemoglobin Sodium 150 H Potassium Chloride 109.3 H Carbon Dioxide BUN 72 H Creatinine 2.8 H Glucose 222 H POC Glucose 155 H 221 H Hemoglobin A1c Lactic Acid Calcium Direct Bilirubin Troponin T NT-Pro-B Natriuret Pep Albumin LDL Cholesterol Direct Arterial Blood Glucose Urine WBC (Auto) Crossmatch 02/19/21 02/19/21 02/19/21 11:36 12:08 17:48 WBC RBC Hgb Hct MCHC RDW Plt Count Lymph % (Auto) [place] % (Auto) Lymph # (Auto) [place] # (Auto) Seg Neutrophils % Seg Neuts % (Manual) Lymphocytes % (Manual) Seg Neutrophils # Seg Neutrophils # Man Lymphocytes # (Manual) Monocytes # (Manual) Basophils # (Manual) PT INR APTT Heparin Anti-Xa Level ABG pH POC ABG pCO2 POC ABG pO2 ABG Hemoglobin 10.3 L ABG Oxyhemoglobin ABG Potassium ABG Chloride 111.0 H ABG Glucose 217 H Carboxyhemoglobin 0.3 L Sodium Potassium Chloride Carbon Dioxide BUN Creatinine Glucose POC Glucose 206 H 174 H Hemoglobin A1c Lactic Acid Calcium Direct Bilirubin Troponin T NT-Pro-B Natriuret Pep Albumin LDL Cholesterol Direct Arterial Blood Glucose 217 H Urine WBC (Auto) Crossmatch 02/19/21 02/20/21 02/20/21 21:17 03:17 05:04 WBC RBC Hgb Hct MCHC RDW Plt Count Lymph % (Auto) [place] % (Auto) Lymph # (Auto) [place] # (Auto) Seg Neutrophils % Seg Neuts % (Manual) Lymphocytes % (Manual) Seg Neutrophils # Seg Neutrophils # Man Lymphocytes # (Manual) Monocytes # (Manual) Basophils # (Manual) PT INR APTT Heparin Anti-Xa Level ABG pH 7.480 H POC ABG pCO2 31.3 L POC ABG pO2 194.3 H ABG Hemoglobin 8.9 L ABG Oxyhemoglobin 98.9 H ABG Potassium ABG Chloride 113.0 H ABG Glucose 118 H Carboxyhemoglobin 0.3 L Sodium Potassium Chloride Carbon Dioxide BUN Creatinine Glucose POC Glucose 161 H 108 H Hemoglobin A1c Lactic Acid Calcium Direct Bilirubin Troponin T NT-Pro-B Natriuret Pep Albumin LDL Cholesterol Direct Arterial Blood Glucose 118 H Urine WBC (Auto) Crossmatch 02/20/21 02/20/21 02/20/21 05:45 05:45 11:34 WBC 15.4 H RBC 3.04 L Hgb 8.6 L Hct 26.9 L MCHC RDW 16.3 H Plt Count Lymph % (Auto) [place] % (Auto) Lymph # (Auto) [place] # (Auto) Seg Neutrophils % Seg Neuts % (Manual) Lymphocytes % (Manual) Seg Neutrophils # Seg Neutrophils # Man Lymphocytes # (Manual) Monocytes # (Manual) Basophils # (Manual) PT INR APTT Heparin Anti-Xa Level ABG pH POC ABG pCO2 POC ABG pO2 ABG Hemoglobin ABG Oxyhemoglobin ABG Potassium ABG Chloride ABG Glucose Carboxyhemoglobin Sodium 148 H Potassium 3.4 L Chloride 111.2 H Carbon Dioxide BUN 75 H Creatinine 3.4 H Glucose 112 H POC Glucose 143 H Hemoglobin A1c Lactic Acid Calcium 8.2 L Direct Bilirubin Troponin T 0.075 H D NT-Pro-B Natriuret Pep Albumin LDL Cholesterol Direct Arterial Blood Glucose Urine WBC (Auto) Crossmatch 02/20/21 02/20/21 02/20/21 17:34 20:45 23:21 WBC RBC Hgb Hct MCHC RDW Plt Count Lymph % (Auto) [place] % (Auto) Lymph # (Auto) [place] # (Auto) Seg Neutrophils % Seg Neuts % (Manual) Lymphocytes % (Manual) Seg Neutrophils # Seg Neutrophils # Man Lymphocytes # (Manual) Monocytes # (Manual) Basophils # (Manual) PT INR APTT Heparin Anti-Xa Level 1.36 H ABG pH POC ABG pCO2 POC ABG pO2 ABG Hemoglobin ABG Oxyhemoglobin ABG Potassium ABG Chloride ABG Glucose Carboxyhemoglobin Sodium Potassium Chloride Carbon Dioxide BUN Creatinine Glucose POC Glucose 168 H 157 H Hemoglobin A1c Lactic Acid Calcium Direct Bilirubin Troponin T NT-Pro-B Natriuret Pep Albumin LDL Cholesterol Direct Arterial Blood Glucose Urine WBC (Auto) Crossmatch 02/20/21 02/20/21 02/21/21 Unknown Unknown 02:53 WBC RBC Hgb 8.6 L Hct 27.1 L MCHC RDW Plt Count Lymph % (Auto) [place] % (Auto) Lymph # (Auto) [place] # (Auto) Seg Neutrophils % Seg Neuts % (Manual) Lymphocytes % (Manual) Seg Neutrophils # Seg Neutrophils # Man Lymphocytes # (Manual) Monocytes # (Manual) Basophils # (Manual) PT 19.5 H INR 1.60 H APTT Heparin Anti-Xa Level ABG pH POC ABG pCO2 POC ABG pO2 73.5 L ABG Hemoglobin 8.7 L ABG Oxyhemoglobin 93.7 L ABG Potassium ABG Chloride 111.0 H ABG Glucose 195 H Carboxyhemoglobin Sodium Potassium Chloride Carbon Dioxide BUN Creatinine Glucose POC Glucose Hemoglobin A1c Lactic Acid Calcium Direct Bilirubin Troponin T NT-Pro-B Natriuret Pep Albumin LDL Cholesterol Direct Arterial Blood Glucose 195 H Urine WBC (Auto) Crossmatch 02/21/21 02/21/21 02/21/21 05:06 05:58 06:10 WBC 12.8 H RBC 2.91 L Hgb 8.2 L Hct 25.7 L MCHC RDW 16.3 H Plt Count Lymph % (Auto) 9.2 L [place] % (Auto) 7.9 H Lymph # (Auto) [place] # (Auto) 1.0 H Seg Neutrophils % 80.1 H Seg Neuts % (Manual) Lymphocytes % (Manual) Seg Neutrophils # 10.2 H Seg Neutrophils # Man Lymphocytes # (Manual) Monocytes # (Manual) Basophils # (Manual) PT INR APTT Heparin Anti-Xa Level ABG pH POC ABG pCO2 POC ABG pO2 ABG Hemoglobin ABG Oxyhemoglobin ABG Potassium ABG Chloride ABG Glucose Carboxyhemoglobin Sodium 147 H Potassium Chloride 108.4 H Carbon Dioxide BUN 80 H Creatinine 3.2 H Glucose 220 H POC Glucose 202 H Hemoglobin A1c Lactic Acid Calcium Direct Bilirubin Troponin T 0.086 H NT-Pro-B Natriuret Pep Albumin LDL Cholesterol Direct Arterial Blood Glucose Urine WBC (Auto) Crossmatch 02/21/21 02/21/21 02/21/21 06:10 11:52 17:49 WBC RBC Hgb Hct MCHC RDW Plt Count Lymph % (Auto) [place] % (Auto) Lymph # (Auto) [place] # (Auto) Seg Neutrophils % Seg Neuts % (Manual) Lymphocytes % (Manual) Seg Neutrophils # Seg Neutrophils # Man Lymphocytes # (Manual) Monocytes # (Manual) Basophils # (Manual) PT INR APTT Heparin Anti-Xa Level 1.07 H ABG pH POC ABG pCO2 POC ABG pO2 ABG Hemoglobin ABG Oxyhemoglobin ABG Potassium ABG Chloride ABG Glucose Carboxyhemoglobin Sodium Potassium Chloride Carbon Dioxide BUN Creatinine Glucose POC Glucose 240 H 243 H Hemoglobin A1c Lactic Acid Calcium Direct Bilirubin Troponin T NT-Pro-B Natriuret Pep Albumin LDL Cholesterol Direct Arterial Blood Glucose Urine WBC (Auto) Crossmatch Chest x-ray: report reviewed, image reviewed
[2021-02-22 05:39] LABS: Basophils # (Auto) 0.1 K/mm3 (0.0-0.1); Basophils % (Auto) 0.4 % (0.0-1.8); Eosinophils # (Auto) 0.2 K/mm3 (0.0-0.4); Eosinophils % (Auto) 1.3 % (0.0-4.3); Hematocrit 28.4 % (30.3-42.9); Lymphocytes # (Auto) 1.1 K/mm3 (1.2-5.4); Lymphocytes % (Auto) 7.1 % (13.4-35.0); Mean Corpuscular HGB Conc 32 % (30-34); Mean Corpuscular Volume 90 fl (79-97); Monocytes % (Auto) 6.5 % (0.0-7.3); Platelet Count 295 K/mm3 (140-440); Red Blood Count 3.16 M/mm3 (3.65-5.03); Red Cell Distribution Width 16.7 % (13.2-15.2)
[2021-02-22 05:56] LABS: Calcium 8.5 mg/dL (8.4-10.2)
[2021-02-22] MEDS: INSULIN LISPRO 100 UNIT/ML SUB-Q SCH ×3 (05:56→18:31)
[2021-02-22] MEDS: INSULIN GLARGINE 100 UNITS/ML SUB-Q SCH (09:00)
[2021-02-22] MEDS: SENNOSIDES/DOCUSATE SODIUM 8.6/50 MG TAB FEEDTUBE SCH ×2 (10:07→21:28)
[2021-02-22] MEDS: FAMOTIDINE 20 MG/2 ML INJ IV SCH (10:07)
[2021-02-22] MEDS: ASPIRIN 81 MG TAB CHEW PO SCH (10:07)
--- NOTE | 2021-02-22 12:02 | Progress Note ---
Assessment and Plan 1. Acute kidney injury: Vasomotor ANGELA superimposed on CKD in the setting of Cardiac arrest/ hypotension. Renal US negative for hydro. Urine studies ordered. Monitor renal function. Creatinine leveled off. UOP is low. Avoid nephrotoxic agents. Meds dosage based on GFR. Monitor for [employer]FA[employer] needs. 2. FEN: Hypernatremia, improved, monitor. Hold diuretics due to hypotension. Monitor lytes and volume status. 3. S/p cardiac arrest: 02/13 echocardiogram showed LVEF 20 to 25%. Followed by Cardiology. 4. Acute HFeEF: Followed by Cardiology. Was on Dobutamine drip. 5. Acute respiratory failure: S/p mechanical ventilation s/p self extubation. Re-intubated 02/19. Followed by Pulmonary. 6. Elevated troponin: S/p cardiac arrest. Followed by Cards. 7. Acute metabolic encephalopathy: Monitor. 8. Shock: On Levophed. Monitor Blood pressure. 9. Bilateral pleural effusions: Diuretics when BP is better. 10. Sepsis, POA: Follow culture. Monitor. 11. H/o Breast CA. 12. DM: SSI, long acting insulin (titrate as needed). Subjective: Patient was seen and examined at the bedside. Examination: General appearance: obese, well-developed, appears stated age, intubated on vent HEENT: ATNC, Pupils equal Neck: trachea midline Respiratory: Coarse breath sounds Heart: regular, S1S2, no murmur Abdomen: soft, normoactive bowel sounds, not tender Integumentary: LE stasis changes Neurologic: sedated Ext: trace LE edema : asencio catheter Subjective Date of service: 02/22/21 Principal diagnosis: Pulmonary Edema Objective - Vital Signs Vital signs: Vital Signs - 12hr 02/22/21 02/22/21 02/22/21 00:01 00:16 00:30 Temperature Pulse Rate 108 H 114 H 106 H Pulse Rate [ From Monitor] Respiratory 18 18 Rate Blood Pressure 109/48 120/58 115/58 O2 Sat by Pulse 98 100 97 Oximetry 02/22/21 02/22/21 02/22/21 01:00 01:30 02:00 Temperature Pulse Rate 100 H 101 H 113 H Pulse Rate [ From Monitor] Respiratory 18 18 19 Rate Blood Pressure 113/49 126/57 128/71 O2 Sat by Pulse 97 95 92 Oximetry 02/22/21 02/22/2102/22/21 02:30 03:01 03:31 Temperature Pulse Rate 127 H 129 H 134 H Pulse Rate [ From Monitor] Respiratory 18 18 17 Rate Blood Pressure 136/67 138/60 133/50 O2 Sat by Pulse 90 92 93 Oximetry 02/22/21 02/22/21 02/22/21 04:00 04:09 04:30 Temperature 99.7 F H Pulse Rate 145 H 139 H Pulse Rate [ From Monitor] Respiratory 18 17 Rate Blood Pressure 130/74 122/71 O2 Sat by Pulse 95 93 Oximetry 02/22/21 02/22/21 02/22/21 04:48 05:00 05:15 Temperature Pulse Rate 130 H 120 H 109 H Pulse Rate [ From Monitor] Respiratory 17 18 Rate Blood Pressure 107/57 107/57 O2 Sat by Pulse 90 85 92 Oximetry 02/22/21 02/22/21 02/22/21 05:30 05:45 06:00 Temperature Pulse Rate 110 H 96 H 90 Pulse Rate [ From Monitor] Respiratory 18 18 18 Rate Blood Pressure 77/36 103/41 112/53 O2 Sat by Pulse 92 92 94 Oximetry 02/22/21 02/22/21 02/22/21 06:15 06:30 06:45 Temperature Pulse Rate 90 92 H 97 H Pulse Rate [ From Monitor] Respiratory 17 18 18 Rate Blood Pressure 109/47 113/51 118/52 O2 Sat by Pulse 94 94 95 Oximetry 02/22/21 02/22/21 02/22/21 07:00 07:15 07:17 Temperature Pulse Rate 93 H 96 H 93 H Pulse Rate [ From Monitor] Respiratory 18 17 Rate Blood Pressure 125/49 111/47 111/47 O2 Sat by Pulse 95 96 97 Oximetry 02/22/21 02/22/21 02/22/21 07:21 07:30 07:45 Temperature 98.3 F Pulse Rate 86 88 Pulse Rate [ From Monitor] Respiratory 18 20 Rate Blood Pressure 111/50 120/51 O2 Sat by Pulse 99 97 Oximetry 02/22/21 02/22/21 02/22/21 08:00 08:15 08:30 Temperature Pulse Rate 85 86 82 Pulse Rate [ 82 From Monitor] Respiratory 19 18 18 Rate Blood Pressure 114/45 105/47 111/47 O2 Sat by Pulse 97 97 97 Oximetry 02/22/21 02/22/21 02/22/21 08:45 09:01 09:15 Temperature Pulse Rate 91 H 90 95 H Pulse Rate [ From Monitor] Respiratory 18 18 18 Rate Blood Pressure 110/54 114/56 127/61 O2 Sat by Pulse 97 97 97 Oximetry 02/22/21 02/22/21 02/22/21 09:30 09:45 10:00 Temperature Pulse Rate 83 92 H 86 Pulse Rate [ From Monitor] Respiratory 20 18 17 Rate Blood Pressure 101/68 109/53 109/53 O2 Sat by Pulse 97 96 98 Oximetry 02/22/21 02/22/21 02/22/21 10:15 10:30 10:45 Temperature Pulse Rate 67 86 79 Pulse Rate [ From Monitor] Respiratory 18 17 Rate Blood Pressure 108/49 114/52 118/39 O2 Sat by Pulse 98 98 98 Oximetry 02/22/21 02/22/21 11:00 11:49 Temperature Pulse Rate 82 81 Pulse Rate [ From Monitor] Respiratory 18 Rate Blood Pressure 114/49 124/49 O2 Sat by Pulse 98 99 Oximetry - Lab 02/22/21 04:00 02/22/21 04:00 Most recent lab results ABG pH 7.369 (7.320-7.450) 02/22/21 03:11 ABG O2 Saturation 95.2 (0-100) 02/22/21 03:11 Calcium 8.5 mg/dL (8.4-10.2) 02/22/21 04:00 Magnesium 2.30 mg/dL (1.7-2.3) 02/18/21 07:10 Medications & Allergies - Medications Allergies/Adverse Reactions: Allergies Penicillins Allergy (Verified 02/12/21 17:19) Unknown contrast Allergy (Uncoded 02/14/21 18:30) Rash Home Medications: Home Medications Medication Instructions Recorded Confirmed Last Taken Type AtorvaSTATin [Lipitor] 40 mg PO QHS 02/12/21 02/12/21 Unknown History Metoprolol Succinate [Kapspargo 25 mg PO QDAY 02/12/21 02/12/21 Unknown History Sprinkle] Spironolactone [Aldactone] 25 mg PO QDAY 02/12/21 02/12/21 Unknown History amLODIPine [Norvasc] 5 mg PO DAILY 02/12/21 02/12/21 Unknown History glipiZIDE [Glucotrol] 5 mg PO BID 02/12/21 02/12/21 Unknown History metFORMIN [Glucophage] 500 mg PO BID 02/12/21 02/19/21 02/12/21 History Aspirin [Adult Aspirin] 1 tab PO QDAY 02/13/21 02/19/21 02/13/21 History Biotin [Biotin 5,000 rapdis] 5,000 mcg PO QDAY 02/13/21 02/19/21 02/12/21 History NovoLOG Flexpen 2 1000units SC ACHS 02/13/21 02/19/21 02/12/21 History Active Medications: Generic Name Dose Route Start Last Admin Trade Name Freq PRN Reason Stop Dose Admin Acetaminophen 650 mg 02/12/21 20:45 02/20/21 16:04 Acetaminophen 325 Mg Tab PO 650 mg Q4H PRN Administration Pain MILD(1-3)/Fever >100.5/CHAMBERS Lipase/Protease/Amylase 1 each 02/20/21 12:00 Lipase 10,500/Protease 25,000/Amylase 43,750 (Units) Dr Meza FEEDTUBE PRN PRN For Clogged Feeding Tube Aspirin 81 mg 02/17/21 10:00 02/22/21 10:07 Aspirin 81 Mg Tab Chew PO 81 mg QDAY AV Administration Atorvastatin Calcium 40 mg 02/12/21 22:00 02/21/21 21:19 Atorvastatin 40 Mg Tab PO 40 mg QHS AV Administration Dextrose 50 ml 02/13/21 11:30 Dextrose 50% In Water (25gm) 50 Ml Syringe IV Q30MIN PRN Hypoglycemia Protocol Famotidine 20 mg 02/17/21 10:00 02/22/21 10:07 Famotidine 20 Mg/2 Ml Inj IV 20 mg DAILY AV Administration Heparin Sodium (Porcine) 3,900 unit 02/20/21 13:08 Heparin 10,000 Units/10 Ml Vial 40 unit/kg (3900 unit) IV Q6H PRN Anti-Xa Assay < 0.1 units/ml Hydrophilic Ointment 1 applic 02/19/21 10:59 Lip Therapy Vaseline TP Q2HR PRN Dry Lips Propofol 1,000 mg in 100 mls @ 2.946 mls/hr 02/19/21 11:00 02/22/21 05:40 Diprivan 10 Mg/Ml IV 20 mcg/kg/min TITR AV 11.784 mls/hr Administration Protocol 5 MCG/KG/MIN Dobutamine HCl/Dextrose 500 mg in 250 mls @ 14.73 mls/hr 02/19/21 13:00 02/20/21 19:00 Dobutrex Drip 500mg/D5w 250ml IV 0 mcg/kg/min DIRECT AV 0 mls/hr Infusion Protocol 5 MCG/KG/MIN NORepinephrine/NS 8 MG-250 ML 8 mg in 250 mls @ 3.75 mls/hr 02/19/21 13:00 02/22/21 05:49 Norepinephrine/Ns 8 Mg-250 Ml (Double Conc) IV 6 mcg/min TITRATE AV 11.25 mls/hr Titration Protocol 2 MCG/MIN Heparin Sodium/Sodium Chloride 25,000 unit in 500 mls @ 29 mls/hr 02/20/21 14:00 02/21/21 17:32 Heparin/ 0.45% Nacl-25,000 Unit/500 Ml IV 1,050 units/hr TITR AV 21 mls/hr Administration Protocol 1,450 UNITS/HR Insulin Glargine 10 units 02/15/21 08:00 02/22/21 09:00 Insulin Glargine 100 Units/Ml SUB-Q 10 units QAMDIAB AV Administration Insulin Human Lispro 0 unit 02/20/21 12:00 02/22/21 05:56 Insulin Lispro 100 Unit/Ml SUB-Q 4 unit Q6HR AV Administration Protocol Metoclopramide HCl 5 mg 02/12/21 20:56 Metoclopramide 10 Mg/2 Ml Inj IV Q6H PRN Nausea And Vomiting Multi-Ingred Cream/Lotion/Oil/Oint 1 applic 02/19/21 10:59 Mineral Oil/Petrolatum, White Ophth Oint 3.5 Gm OU Q4HR PRN Dry Eye(s) Ondansetron HCl 4 mg 02/12/21 20:45 Ondansetron 4 Mg/2 Ml Inj IV Q8H PRN Nausea And Vomiting Phenyleph/Shark Oil/Min Oil/Petrol 1 applic 02/15/21 12:52 Pe/Mo/Pet,Wh 10 Applic/28 Gm Tube [place] Q6HR PRN Hemorrhoids Senna/Docusate Sodium 1 tab 02/19/21 22:00 02/22/21 10:07 Sennosides/Docusate Sodium 8.6/50 Mg Tab FEEDTUBE Not Given BID AV Simple Syrup 15 ml 02/20/21 12:00 Simple Syrup 15 Ml FEEDTUBE PRN PRN Hypoglycemia Simple Syrup 30 ml 02/20/21 12:00 Simple Syrup 15 Ml FEEDTUBE PRN PRN Hypoglycemia Sodium Bicarbonate 325 mg 02/20/21 12:00 Sodium Bicarbonate 325 Mg Tab FEEDTUBE PRN PRN For Clogged Feeding Tube Sodium Chloride 10 ml 02/12/21 22:00 02/22/21 10:08 Sodium Chloride 0.9% 10 Ml Flush Syringe IV 10 ml BID AV Administration Sodium Chloride 10 ml 02/12/21 20:45 Sodium Chloride 0.9% 10 Ml Flush Syringe IV PRN PRN LINE FLUSH
--- NOTE | 2021-02-22 12:43 | Progress Note ---
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 LV is normal size. LV SF is moderate to severely decreased. Severe global hypokinesis of LV. RV SF is normal. Mild to moderate MR. RVSP is 11 mmHg. * GDMT as tolerated. We will plan to resume diuresis for severe heart failure w ith reduced ejection fraction once patient is no longer requiring vasodilator support for hemodynamic instability. Paroxysmal A. fib in setting of anemia * Anticoagulated on heparin drip * Currently controlled ventricular response, continue to monitor on telemetry ANGELA * No ACEI/ARB in setting of ANGELA. Avoid nephrotoxic agents NSTEMI suspect type II * Troponins are elevated, subacute and nonspecific. Continue to trend CE's. We will follow This patient was seen in conjunction with Dr Alejandro who agrees with this assessment and plan of care - Patient Problems (1) Acute renal failure Current Visit: Yes Status: Acute Qualifiers: Acute renal failure type: with acute tubular necrosis Qualified Code(s): N17.0 - Acute kidney failure with tubular necrosis (2) Non-ST elevated myocardial infarction (non-STEMI) Current Visit: Yes Status: Acute (3) Acute exacerbation of CHF (congestive heart failure) Current Visit: Yes Status: Acute Qualifiers: Heart failure type: systolic Qualified Code(s): I50.23 - Acute on chronic systolic (congestive) heart failure (4) Acute heart failure Current Visit: Yes Status: Acute Qualifiers: Heart failure type: systolic Qualified Code(s): I50.21 - Acute systolic (congestive) heart failure (5) Acute respiratory failure with hypoxia Current Visit: Yes Status: Acute (6) Bilateral pleural effusion Current Visit: Yes Status: Acute (7) Sepsis Current Visit: Yes Status: Acute Qualifiers: Severe sepsis shock status: with septic shock (8) HLD (hyperlipidemia) Current Visit: Yes Status: Chronic Qualifiers: Hyperlipidemia type: mixed hyperlipidemia Qualified Code(s): E78.2 - Mixed hyperlipidemia (9) T2DM (type 2 diabetes mellitus) Current Visit: Yes Status: Chronic Qualifiers: 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 Negative: JVD/HJR Cardiac: Positive: irregularly irregular, S1/S2 Lungs: Positive: Ventilated Respirations Neuro: Positive: Other (Intubated sedated) Abdomen: Positive: Soft Skin: Negative: Rash Musculoskeletal: other (Intubated sedated) Extremities: Present: lower extr. pulses, +1 Edema, Other (chronic skin changes noted) - Labs and Meds Lipids 02/22/21 Range/Units 04:00 Triglycerides 139 (2-149) mg/dL CBC 02/22/21 Range/Units 04:00 WBC 15.8 H (4.5-11.0) K/mm3 RBC 3.16 L (3.65-5.03) M/mm3 Hgb 9.0 L (10.1-14.3) gm/dl Hct 28.4 L (30.3-42.9) % Plt Count 295 (140-440) K/mm3 Lymph # (Auto) 1.1 L (1.2-5.4) K/mm3 [place] # (Auto) 1.0 H (0.0-0.8) K/mm3 Eos # (Auto) 0.2 (0.0-0.4) K/mm3 Baso # (Auto) 0.1 (0.0-0.1) K/mm3 Comprehensive Metabolic Panel 02/22/21 Range/Units 04:00 Sodium 141 (137-145) mmol/L Potassium 4.7 (3.6-5.0) mmol/L Chloride 104.1 (98-107) mmol/L Carbon Dioxide 24 (22-30) mmol/L BUN 83 H (7-17) mg/dL Creatinine 3.3 H (0.6-1.2) mg/dL Glucose 317 H (65-100) mg/dL Calcium 8.5 (8.4-10.2) mg/dL - Imaging and Cardiology EKG: report reviewed, image reviewed Echo: report reviewed (Echocardiogram reviewed (02/14/2021): LVEF is 20 to 25%. LV is normal size. LV SF is moderate to severely decreased. Severe global hyp okinesis of LV. RV SF is normal. Mild to moderate MR. RVSP is 11 mmHg.), other (2018 - EF 45-50%, trace MR) - Telemetry EKG Rhythm: Atrial Fibrillation - EKG Sinus rhythms and dysrhythmias: sinus rhythm Repolarization changes or abnormalities: nonspecific abnormality, ST segment, and/or T wave
--- NOTE | 2021-02-22 15:48 | Progress Note ---
Assessment and Plan This is a 62-year-old female with COPD, CHF, HTN, GERD, breast cancer, arthritis HLD, type 2 diabetes mellitus admitted s/p cardiac arrest with acute exacerbation of congestive heart failure, acute hypoxic respiratory failure, sepsis, acute kidney injury and electrolyte imbalances A/P --Acute hypoxic respiratory failure, Patient initiated on continuous BiPAP. Now intubated on 02/19/21 Pulmonary critical care following, wean off from vent as tolerated --Acute metabolic encephalopathy -Fall/aspiration precautions -Reorientation as needed -02/12 CT head shows no acute intracranial abnormality -Likely due to severe hypoxia --S/p cardiac arrest -02/13 echocardiogram shows left ventricular function moderate to severely decreased, LVEF 20 to 25%, right ventricle systolic function normal, mitral valve annular calcification, thickened and calcified leaflets, mild to moderate mitral valve regurgitation, RVSP 11 mmHg, trace TR, large left pleural effusion with no pericardial effusion -Cardiology consulted, appreciate recommendations --Acute on chronic systolic heart failure -Cardiology consulted -Per cardiology 03/2018 echocardiogram showed ejection fraction of 45 to 50%, trace MR, trace TR -02/13 echocardiogram shows left ventricular function moderate to severely decreased, LVEF 20 to 25%, right ventricle systolic function normal, mitral valve annular calcification, thickened and calcified leaflets, mild to moderate mitral valve regurgitation, RVSP 11 mmHg, trace TR, large left pleural effusion with no pericardial effusion -s/p IV lasix 40 mg twice daily s/p milrinone per cardiology -strict I&O -asencio --Cardiogenic shock -as needed Levophed -Blood pressure monitoring per protocol --Hypertension -Patient has a history of hypertension -Resume home antihypertenisive medication and titrate as needed --Elevated troponin/NSTEMI type II -Cardiology consulted -Likely due to cardiac arrest and renal failure -Trend trop --Hyperlipidemia -Resume home statin --Bilateral pleural effusions -evidenced on cxr -s/p lasix in ED -lasix IV, sprinolactone PO -Consider thoracentesis if no improvement in respiratory status and response to Lasix --Hyperkalemia, resolved -s/p Kayexalate -Trend potassium --Acute kidney injury, -Presented with a BUN/creatinine of 1.7/20, 02/13 BUN/creatinine 2.2/ -Strict urine output -Avoid nephrotoxic medications -Renally dose medications -Daily weights -Nephrology consult --Lactic acidosis, resolved -Presented with a lactic acid of 4.5, 7/2 lactic acid 0.8 --Sepsis -abx therapy -Presented with hypoxia, tachycardia, hypotension, leukocytosis -BC x2 neg -Tracheal aspirate grew nelsy --h/o Breast CA, need outpatient follow-up --DM type II -SSI, long acting insulin (titrate as needed) -Hbg A1C -Acccuchecks -Hypoglycemic protocol -CC consistent carbohydrate --Bilateral lower extremity skin lacerations -WOCN consulted -Wound care per nursing --Anxiety -Xanax prn --DVT prophylaxis, heparin The high probability of a clinically significant, sudden or life threatening deterioration of the [cardio/respiratory] system(s) required my full and direct attention, intervention and personal management. The aggregate critical care time was [35] minutes. This time is in addition to time spent performing reported procedures but includes the following: [x] Data Review and interpretation [x] Patient assessment and monitoring of vital signs [x] Documentation [x] Medication orders and managementdiet DVT/GI prophylaxis: PPI, SCDs to bilateral ultrasound in bed, heparin Disposition: Continue care in ICU, Guarded prognosis Lines: CVL, asencio The high probability of a clinically significant, sudden or life threatening deterioration of the [CL[employer] HAND, CVS, pulmonary] system(s) required my full and direct attention, intervention and personal management. The aggregate critical care time was [37] minutes. This time is in addition to time spent performing reported procedures but includes the following: [x] Data Review and interpretation [x] Patient assessment and monitoring of vital signs [x] Documentation [x] Medication orders and management Brief history This is a 62-year-old female with COPD, CHF, HTN, GERD, breast cancer, arthritis HLD, type 2 diabetes mellitus who presented to the emergency department on 02/12 with complaints of severe shortness of breath and upon presentation patient assistance duration was 70% despite being on BiPAP and was electively intubated. After intubation patient had cardiac arrest with PEA and ACLS was initiated for approximately 5 minutes with achievement of ROSC. Patient later self extubated and was placed back on BiPAP. Work-up in the emergency department revealed leukocytosis, lactic acidosis, and CXR showed bilateral pleural effusions with pulmonary edema, elevated proBNP, elevated troponins. Patient was admitted to the hospital service s/p cardiac arrest, acute hypoxic respiratory failure, acute exacerbation of CHF and sepsis with consults to cardiology and [facility]. Daily clinical course: 02/13: Patient weaned to high flow nasal cannula, echocardiogram pending, Levophed titrated off, COVID-19 PCR negative 02/14: Patient was transferred to stepdown status, per cardiology patient received IV Lasix to help with pleural effusion seen on echocardiogram. Echocardiogram read with ejection fraction of 20 to 25%. Patient was started on Xanax to help with anxiety. Long-acting insulin increased due to persistent hyperglycemia 02/15: Patient placed back on BiPAP, started to have respiratory decompensation. Spoke with cardiology and pulmonology, will start milrinone, continue Lasix, low threshold for reintubation. 02/16: milrinone drip is running, continue : Patient seen and examined with at the bedside, patient continues to be very agitated, given sedation, low threshold for reintubation. Diuresis with Lasix. 02/17: Patient remains on continuous BiPAP and milrinone drip. She took off her BiPAP mask this morning which was immediately replaced by respiratory therapist. Patient remains lethargic and slightly restless. H&H remained stable, cre atinine continue to trend up-consult nephrology, follow BMP. 02/18/21; patient on Bumex and milrinone drip. Also initiated on D5W at 30 mils per hour as patient unable to eat because she is on continuous BiPAP and sodium level 150 today, repeat BMP tomorrow. Poor prognosis 02/19/21: Patient intubated today and transferred to ICU. Continue to follow clinically, poor prognosis. 02/20/21: platient placed on heparin drip for atrial fib 02/21/21: remains intubated, on heparin drip for atfib 02/22/21; discussed with at bedside, updated him with all details and discussed about code status. Patient does understand that patient has very poor prognosis. He will decide about CODE STATUS soon. Patient remains intubated, on heparin drip. Continue supportive care, and tube feeding diet. Subjective Date of service: 02/22/21 Principal diagnosis: Pulmonary Edema Interval history: Patient seen and examined. Medical records and medication list reviewed. No acute event overnight noted by the RN. Vitals noted Patient remains on mechanical ventilation Discussed plan of care at bedside with patient's RN Patient was at bedside and discussed with him in details. Objective - Exam Narrative Exam: GENERAL: Morbidly obese white female lying on bed appeared to be intubated and sedated HEENT: Normocephalic. Atraumatic. No conjunctival congestion or icterus. Patient has moist mucous membranes. NECK: Supple. Trachea midline. CHEST/LUNGS: On mechanical ventilation, coarse breath sounds auscultated bilaterally HEART/CARDIOVASCULAR: Regular in rate and rhythm. S1 and S2 positive. ABDOMEN: Abdomen is soft, nontender. Patient has normal bowel sounds. SKIN: There is no rash. Warm and dry. NEURO: Sedated MUSCULOSKELETAL: No joint effusion or tenderness. EXTRIMITY: Lower extremity wound with a dry scaly skin, + edema PSYCH: Sedated - Constitutional Vitals: Vital Signs - 12hr 02/22/21 02/22/21 02/22/21 04:00 04:09 04:30 Temperature 99.7 F H Pulse Rate 145 H 139 H Pulse Rate [ From Monitor] Respiratory 18 17 Rate Blood Pressure 130/74 122/71 O2 Sat by Pulse 95 93 Oximetry 02/22/21 02/22/21 02/22/21 04:48 05:00 05:15 Temperature Pulse Rate 130 H 120 H 109 H Pulse Rate [ From Monitor] Respiratory 17 18 Rate Blood Pressure 107/57 107/57 O2 Sat by Pulse 90 85 92 Oximetry 02/22/21 02/22/21 02/22/21 05:30 05:45 06:00 Temperature Pulse Rate 110 H 96 H 90 Pulse Rate [ From Monitor] Respiratory 18 18 18 Rate Blood Pressure 77/36 103/41 112/53 O2 Sat by Pulse 92 92 94 Oximetry 02/22/21 02/22/21 02/22/21 06:15 06:30 06:45 Temperature Pulse Rate 90 92 H 97 H Pulse Rate [ From Monitor] Respiratory 17 18 18 Rate Blood Pressure 109/47 113/51 118/52 O2 Sat by Pulse 94 94 95 Oximetry 02/22/21 02/22/21 02/22/21 07:00 07:15 07:17 Temperature Pulse Rate 93 H 96 H 93 H Pulse Rate [ From Monitor] Respiratory 18 17 Rate Blood Pressure 125/49 111/47 111/47 O2 Sat by Pulse 95 96 97 Oximetry 02/22/21 02/22/21 02/22/2121 07:30 07:45 Temperature 98.3 F Pulse Rate 86 88 Pulse Rate [ From Monitor] Respiratory 18 20 Rate Blood Pressure 111/50 120/51 O2 Sat by Pulse 99 97 Oximetry 02/22/21 02/22/21 02/22/21 08:00 08:15 08:30 Temperature Pulse Rate 85 86 82 Pulse Rate [ 82 From Monitor] Respiratory 19 18 18 Rate Blood Pressure 114/45 105/47 111/47 O2 Sat by Pulse 97 97 97 Oximetry 02/22/21 02/22/21 02/22/21 08:45 09:01 09:15 Temperature Pulse Rate 91 H 90 95 H Pulse Rate [ From Monitor] Respiratory 18 18 18 Rate Blood Pressure 110/54 114/56 127/61 O2 Sat by Pulse 97 97 97 Oximetry 02/22/21 02/22/21 02/22/21 09:30 09:45 10:00 Temperature Pulse Rate 83 92 H 86 Pulse Rate [ From Monitor] Respiratory 20 18 17 Rate Blood Pressure 101/68 109/53 109/53 O2 Sat by Pulse 97 96 98 Oximetry 02/22/21 02/22/21 02/22/21 10:15 10:30 10:45 Temperature Pulse Rate 67 86 79 Pulse Rate [ From Monitor] Respiratory 18 17 Rate Blood Pressure 108/49 114/52 118/39 O2 Sat by Pulse 98 98 98 Oximetry 02/22/21 02/22/21 02/22/21 11:00 11:15 11:30 Temperature Pulse Rate 82 77 88 Pulse Rate [ From Monitor] Respiratory 18 17 18 Rate Blood Pressure 114/49 130/52 124/49 O2 Sat by Pulse 98 98 98 Oximetry 02/22/21 02/22/21 02/22/21 11:45 11:49 12:00 Temperature Pulse Rate 85 81 86 Pulse Rate [ 86 From Monitor] Respiratory 19 18 Rate Blood Pressure 130/50 124/49 122/44 O2 Sat by Pulse 97 99 100 Oximetry 02/22/21 02/22/21 02/22/21 12:11 12:15 12:30 Temperature 98.3 F Pulse Rate 82 79 Pulse Rate [ From Monitor] Respiratory 18 18 Rate Blood Pressure 123/55 113/50 O2 Sat by Pulse 97 97 Oximetry 02/22/21 02/22/21 02/22/21 12:45 13:00 13:15 Temperature Pulse Rate 85 80 83 Pulse Rate [ From Monitor] Respiratory 18 18 19 Rate Blood Pressure 120/57 128/65 118/48 O2 Sat by Pulse 97 97 98 Oximetry 02/22/21 14:53 Temperature Pulse Rate 81 Pulse Rate [ From Monitor] Respiratory Rate Blood Pressure 135/54 O2 Sat by Pulse 96 Oximetry - Labs CBC & Chem 7: 02/22/21 04:00 02/23/21 04:00 Labs: Abnormal lab results 02/21/21 02/21/21 02/22/21 Range/Units 17:49 23:11 03:11 WBC (4.5-11.0) K/mm3 RBC (3.65-5.03) M/mm3 Hgb (10.1-14.3) gm/dl Hct (30.3-42.9) % RDW (13.2-15.2) % Lymph % (Auto) (13.4-35.0) % Lymph # (Auto) (1.2-5.4) K/mm3 Bladen # (Auto) (0.0-0.8) K/mm3 Seg Neutrophils % (40.0-70.0) % Seg Neutrophils # (1.8-7.7) K/mm3 POC ABG pO2 80.7 L (83-108) mmHg ABG Hemoglobin 9.7 L (12.0-17.5) ABG Glucose 315 H (65-95) mg/dL BUN (7-17) mg/dL Creatinine (0.6-1.2) mg/dL Glucose (65-100) mg/dL POC Glucose 243 H 264 H (70-105) mg/dL Troponin T (0.00-0.029) ng/mL Arterial Blood Glucose 315 H (65-95) mg/dL Arterial Blood Ionized Calcium 4.5 L (4.6-5.3) mg/dL 02/22/21 02/22/21 02/22/21 Range/Units 04:00 04:00 05:15 WBC 15.8 H (4.5-11.0) K/mm3 RBC 3.16 L (3.65-5.03) M/mm3 Hgb 9.0 L (10.1-14.3) gm/dl Hct 28.4 L (30.3-42.9) % RDW 16.7 H (13.2-15.2) % Lymph % (Auto) 7.1 L (13.4-35.0) % Lymph # (Auto) 1.1 L (1.2-5.4) K/mm3 Bladen # (Auto) 1.0 H (0.0-0.8) K/mm3 Seg Neutrophils % 84.7 H (40.0-70.0) % Seg Neutrophils # 13.4 H (1.8-7.7) K/mm3 POC ABG pO2 (83-108) mmHg ABG Hemoglobin (12.0-17.5) ABG Glucose (65-95) mg/dL BUN 83 H (7-17) mg/dL Creatinine 3.3 H (0.6-1.2) mg/dL Glucose 317 H (65-100) mg/dL POC Glucose 298 H (70-105) mg/dL Troponin T 0.064 H D (0.00-0.029) ng/mL Arterial Blood Glucose (65-95) mg/dL Arterial Blood Ionized Calcium (4.6-5.3) mg/dL 02/22/21 Range/Units 11:12 WBC (4.5-11.0) K/mm3 RBC (3.65-5.03) M/mm3 Hgb (10.1-14.3) gm/dl Hct (30.3-42.9) % RDW (13.2-15.2) % Lymph % (Auto) (13.4-35.0) % Lymph # (Auto) (1.2-5.4) K/mm3 Bladen # (Auto) (0.0-0.8) K/mm3 Seg Neutrophils % (40.0-70.0) % Seg Neutrophils # (1.8-7.7) K/mm3 POC ABG pO2 (83-108) mmHg ABG Hemoglobin (12.0-17.5) ABG Glucose (65-95) mg/dL BUN (7-17) mg/dL Creatinine (0.6-1.2) mg/dL Glucose (65-100) mg/dL POC Glucose 289 H (70-105) mg/dL Troponin T (0.00-0.029) ng/mL Arterial Blood Glucose (65-95) mg/dL Arterial Blood Ionized Calcium (4.6-5.3) mg/dL HEART Score - HEART Score EKG: Non-specific Age: > 65 Risk factors: 1-2 risk factors Troponin: Troponin T 0.064 ng/mL (0.00-0.029) H D 02/22/21 04:00 Troponin: < normal limit - Critical Actions Critical Actions: 4-6 pts:12-16.6% risk of adverse cardiac event. Should be admitted
[2021-02-22] MEDS: NORepinephrine/NS 8 MG-250 ML 8 MG/250 ML INFUS..BTL IV SCH (17:28)
[2021-02-22] MEDS: HEPARIN/ 0.45% NACL DRIP 25,000 UNIT/500 ML BAG IV SCH (17:28)
--- NOTE | 2021-02-22 20:01 | Progress Note ---
Assessment and Plan Imp: 1. Acute/chronic systolic CHF 2. Dilated CMP 3. Acute respiratory failure, hypoxia 4. ANGELA 5. Obesity 6. Pleural effusion Rec: 1. Holding diuretics due to ANGELA 2. s/p 5 days of Rocephin/Azithromycin 3. Cont. current ventilator settings; PEEP of +10 and FiO2 of 55% precludes PSV trial and extubation 4. DVT PPx 5. Start Fentanyl drip in efforts to hopefully wean Propofol which may improve hemodynamics; would wean Levophed to keep MAP > 60 6. Further plans pending clinical course; prognosis guarded to poor; long d/w at the bedside and he is considering DNR status CCt 31 minutes Subjective Date of service: 02/22/21 Principal diagnosis: Pulmonary Edema Interval history: Sedated on Propofol. On Levophed still. Cannot give history. On 55% FiO2 and PEEP of +10. Active Medications Acetaminophen (Acetaminophen 325 Mg Tab) 650 mg PO Q4H PRN PRN Reason: Pain MILD(1-3)/Fever >100.5/CHAMBERS Last Admin: 02/20/21 16:04 Dose: 650 mg Documented by: Lipase/Protease/Amylase (Lipase 10,500/Protease 25,000/Amylase 43,750 (Units) Dr Cap) 1 each FEEDTUBE PRN PRN PRN Reason: For Clogged Feeding Tube Aspirin (Aspirin 81 Mg Tab Chew) 81 mg PO QDAY [facility] Last Admin: 02/22/21 10:07 Dose: 81 mg Documented by: Atorvastatin Calcium (Atorvastatin 40 Mg Tab) 40 mg PO QHS [facility] Last Admin: 02/21/21 21:19 Dose: 40 mg Documented by: Dextrose (Dextrose 50% In Water (25gm) 50 Ml Syringe) 50 ml IV Q30MIN PRN; Pro tocol PRN Reason: Hypoglycemia Famotidine (Famotidine 20 Mg/2 Ml Inj) 20 mg IV DAILY [facility] Last Admin: 02/22/21 10:07 Dose: 20 mg Documented by: Fentanyl (Fentanyl 100 Mcg/2 Ml Inj) 50 mcg IV Q10MIN PRN PRN Reason: ANALGESIA Heparin Sodium (Porcine) (Heparin 10,000 Units/10 Ml Vial) 3,900 unit 40 unit/kg (3900 unit) IV Q6H PRN PRN Reason: Anti-Xa Assay < 0.1 units/ml Hydrophilic Ointment (Lip Therapy Vaseline) 1 applic TP Q2HR PRN PRN Reason: Dry Lips Propofol (Diprivan 10 Mg/Ml) 1,000 mg in 100 mls @ 2.946 mls/hr IV TITR AV; Protocol Last Admin: 02/22/21 14:09 Dose: 20 mcg/kg/min, 11.784 mls/hr Documented by: Dobutamine HCl/Dextrose (Dobutrex Drip 500mg/D5w 250ml) 500 mg in 250 mls @ 14.73 mls/hr IV DIRECT AV; Protocol Last Infusion: 02/20/21 19:00 Dose: 0 mcg/kg/min, 0 mls/hr Documented by: NORepinephrine/NS 8 MG-250 ML (Norepinephrine/Ns 8 Mg-250 Ml (Double Conc)) 8 mg in 250 mls @ 3.75 mls/hr IV TITRATE AV; Protocol Last Admin: 02/22/21 17:28 Dose: 6 mcg/min, 11.25 mls/hr Documented by: Heparin Sodium/Sodium Chloride (Heparin/ 0.45% Nacl-25,000 Unit/500 Ml) 25,000 unit in 500 mls @ 29 mls/hr IV TITR AV; Protocol Last Admin: 02/22/21 17:28 Dose: 1,050 units/hr, 21 mls/hr Documented by: Fentanyl Citrate (Fentanyl Drip Premix) 2,000 mcg in 100 mls @ 4.91 mls/hr IV TITR AV; Protocol Insulin Glargine (Insulin Glargine 100 Units/Ml) 10 units SUB-Q QAMDIAB AV Last Admin: 02/22/21 09:00 Dose: 10 units Documented by: Insulin Human Lispro (Insulin Lispro 100 Unit/Ml) 0 unit SUB-Q Q6HR AV; Protocol Last Admin: 02/22/21 18:31 Dose: 6 unit Documented by: Metoclopramide HCl (Metoclopramide 10 Mg/2 Ml Inj) 5 mg IV Q6H PRN PRN Reason: Nausea And Vomiting Multi-Ingred Cream/Lotion/Oil/Oint (Mineral Oil/Petrolatum, White Ophth Oint 3.5 Gm) 1 applic OU Q4HR PRN PRN Reason: Dry Eye(s) Ondansetron HCl (Ondansetron 4 Mg/2 Ml Inj) 4 mg IV Q8H PRN PRN Reason: Nausea And Vomiting Phenyleph/Shark Oil/Min Oil/Petrol (Pe/Mo/Pet,Wh 10 Applic/28 Gm Tube) 1 applic [place] Q6HR PRN PRN Reason: Hemorrhoids Senna/Docusate Sodium (Sennosides/Docusate Sodium 8.6/50 Mg Tab) 1 tab FEEDTUBE BID [facility] Last Admin: 02/22/21 10:07 Dose: Not Given Documented by: Simple Syrup (Simple Syrup 15 Ml) 15 ml FEEDTUBE PRN PRN PRN Reason: Hypoglycemia Simple Syrup (Simple Syrup 15 Ml) 30 ml FEEDTUBE PRN PRN PRN Reason: Hypoglycemia Sodium Bicarbonate (Sodium Bicarbonate 325 Mg Tab) 325 mg FEEDTUBE PRN PRN PRN Reason: For Clogged Feeding Tube Sodium Chloride (Sodium Chloride 0.9% 10 Ml Flush Syringe) 10 ml IV BID [facility] Last Admin: 02/22/21 10:08 Dose: 10 ml Documented by: Sodium Chloride (Sodium Chloride 0.9% 10 Ml Flush Syringe) 10 ml IV PRN PRN PRN Reason: LINE FLUSH Objective Vital Signs - 12hr 02/22/21 02/22/21 02/22/21 08:00 08:15 08:30 Temperature Pulse Rate 85 86 82 Pulse Rate [ 82 From Monitor] Respiratory 19 18 18 Rate Blood Pressure 114/45 105/47 111/47 O2 Sat by Pulse 97 97 97 Oximetry 02/22/21 02/22/21 02/22/21 08:45 09:01 09:15 Temperature Pulse Rate 91 H 90 95 H Pulse Rate [ From Monitor] Respiratory 18 18 18 Rate Blood Pressure 110/54 114/56 127/61 O2 Sat by Pulse 97 97 97 Oximetry 02/22/21 02/22/21 02/22/21 09:30 09:45 10:00 Temperature Pulse Rate 83 92 H 86 Pulse Rate [ From Monitor] Respiratory 20 18 17 Rate Blood Pressure 101/68 109/53 109/53 O2 Sat by Pulse 97 96 98 Oximetry 02/22/21 02/22/21 02/22/21 10:15 10:30 10:45 Temperature Pulse Rate 67 86 79 Pulse Rate [ From Monitor] Respiratory 18 17 Rate Blood Pressure 108/49 114/52 118/39 O2 Sat by Pulse 98 98 98 Oximetry 0702/22/21 02/22/21 11:00 11:15 11:30 Temperature Pulse Rate 82 77 88 Pulse Rate [ From Monitor] Respiratory 18 17 18 Rate Blood Pressure 114/49 130/52 124/49 O2 Sat by Pulse 98 98 98 Oximetry 02/22/21 02/22/21 02/22/21 11:45 11:49 12:00 Temperature Pulse Rate 85 81 86 Pulse Rate [ 86 From Monitor] Respiratory 19 18 Rate Blood Pressure 130/50 124/49 122/44 O2 Sat by Pulse 97 99 100 Oximetry 02/22/21 02/22/21 02/22/21 12:11 12:15 12:30 Temperature 98.3 F Pulse Rate 82 79 Pulse Rate [ From Monitor] Respiratory 18 18 Rate Blood Pressure 123/55 113/50 O2 Sat by Pulse 97 97 Oximetry 02/22/21 02/22/21 02/22/21 12:45 13:00 13:15 Temperature Pulse Rate 85 80 83 Pulse Rate [ From Monitor] Respiratory 18 18 19 Rate Blood Pressure 120/57 128/65 118/48 O2 Sat by Pulse 97 97 98 Oximetry 02/22/21 02/22/21 02/22/21 13:30 13:45 14:00 Temperature Pulse Rate 76 76 78 Pulse Rate [ From Monitor] Respiratory 18 18 17 Rate Blood Pressure 123/48 109/40 113/53 O2 Sat by Pulse 98 97 97 Oximetry 02/22/21 02/22/21 02/22/21 14:16 14:30 14:45 Temperature Pulse Rate 85 85 88 Pulse Rate [ From Monitor] Respiratory 18 18 18 Rate Blood Pressure 121/41 119/56 135/54 O2 Sat by Pulse 94 96 95 Oximetry 02/22/21 02/22/21 02/22/21 14:53 15:00 15:15 Temperature Pulse Rate 81 88 83 Pulse Rate [ From Monitor] Respiratory 17 18 Rate Blood Pressure 135/54 124/48 122/40 O2 Sat by Pulse 96 96 96 Oximetry 02/22/21 02/22/21 02/22/21 15:30 15:45 16:00 Temperature Pulse Rate 87 92 H 93 H Pulse Rate [ 84 From Monitor] Respiratory 18 18 18 Rate Blood Pressure 116/46 109/43 106/44 O2 Sat by Pulse 95 95 95 Oximetry 02/22/21 02/22/21 02/22/21 16:03 16:15 16:30 Temperature 99.8 F H Pulse Rate 82 107 H Pulse Rate [ From Monitor] Respiratory 18 18 Rate Blood Pressure 116/44 121/49 O2 Sat by Pulse 95 94 Oximetry 02/22/21 02/22/21 02/22/21 16:45 17:00 17:15 Temperature Pulse Rate 96 H 94 H 97 H Pulse Rate [ From Monitor] Respiratory 18 18 18 Rate Blood Pressure 119/45 124/46 126/50 O2 Sat by Pulse 94 94 95 Oximetry 02/22/21 02/22/21 02/22/21 17:30 17:45 18:00 Temperature Pulse Rate 99 H 99 H 100 H Pulse Rate [ From Monitor] Respiratory 18 18 18 Rate Blood Pressure 130/49 127/43 111/50 O2 Sat by Pulse 94 94 94 Oximetry 02/22/21 02/22/21 02/22/21 18:15 18:16 18:30 Temperature Pulse Rate 98 H 98 H 106 H Pulse Rate [ From Monitor] Respiratory 18 18 Rate Blood Pressure 109/52 127/43 115/49 O2 Sat by Pulse 94 94 95 Oximetry 02/22/21 02/22/21 02/22/21 18:45 19:00 19:15 Temperature Pulse Rate 99 H 106 H 102 H Pulse Rate [ From Monitor] Respiratory 18 18 19 Rate Blood Pressure 117/38 119/40 112/57 O2 Sat by Pulse 95 94 94 Oximetry 02/22/21 19:44 Temperature 98.7 F Pulse Rate Pulse Rate [ From Monitor] Respiratory Rate Blood Pressure O2 Sat by Pulse Oximetry Constitutional: other (intubated, sedated, on ventilator) Eyes: non-icteric ENT: oropharynx moist Neck: supple, other (large in circumference) Effort: normal Ascultation: Bilateral: other (coarse BS bilaterally) Cardiovascular: other (RRR with no mrg) Gastrointestinal: normoactive bowel sounds, soft, non-tender, non-distended Integumentary: normal Extremities: no cyanosis, pink and warm, anasarca Neurologic: unable to assess Psychiatric: other (unable to assess) CBC and BMP: 02/22/21 04:00 02/22/21 04:00 ABG, PT/INR, D-dimer: ABG ABG pH 7.369 (7.320-7.450) 02/22/21 03:11 POC ABG pCO2 42.1 mmHg (32.0-48.0) 02/22/21 03:11 POC ABG pO2 80.7 mmHg (83-108) L 02/22/21 03:11 POC ABG HCO3 23.7 02/22/21 03:11 ABG O2 Saturation 95.2 (0-100) 02/22/21 03:11 PT/INR, D-dimer PT 19.5 Sec. (12.2-14.9) H 02/20/21 Unknown INR 1.60 (0.87-1.13) H 02/20/21 Unknown Abnormal lab findings: Abnormal Labs 02/12/21 02/12/21 02/12/21 10:45 11:59 12:20 WBC RBC Hgb Hct MCHC RDW Plt Count Lymph % (Auto) [place] % (Auto) Lymph # (Auto) [place] # (Auto) Seg Neutrophils % Seg Neuts % (Manual) Lymphocytes % (Manual) Seg Neutrophils # Seg Neutrophils # Man Lymphocytes # (Manual) Monocytes # (Manual) Basophils # (Manual) PT INR APTT Heparin Anti-Xa Level ABG pH 7.265 L POC ABG pCO2 49.9 H POC ABG pO2 168.3 H ABG Hemoglobin 10.1 L ABG Oxyhemoglobin 98.5 H ABG Potassium ABG Chloride ABG Glucose 330 H Carboxyhemoglobin 0.3 L Sodium Potassium Chloride Carbon Dioxide BUN Creatinine Glucose POC Glucose 291 H Hemoglobin A1c Lactic Acid Calcium Direct Bilirubin Troponin T 0.058 H NT-Pro-B Natriuret Pep Albumin LDL Cholesterol Direct Arterial Blood Glucose 330 H Arterial Blood Ionized Calcium Urine WBC (Auto) Crossmatch 02/12/21 02/12/21 02/12/21 12:20 12:20 12:20 WBC RBC Hgb Hct MCHC RDW Plt Count Lymph % (Auto) [place] % (Auto) Lymph # (Auto) [place] # (Auto) Seg Neutrophils % Seg Neuts % (Manual) Lymphocytes % (Manual) Seg Neutrophils # Seg Neutrophils # Man Lymphocytes # (Manual) Monocytes # (Manual) Basophils # (Manual) PT INR APTT 22.9 L Heparin Anti-Xa Level ABG pH POC ABG pCO2 POC ABG pO2 ABG Hemoglobin ABG Oxyhemoglobin ABG Potassium ABG Chloride ABG Glucose Carboxyhemoglobin Sodium Potassium Chloride Carbon Dioxide 21 L BUN 20 H Creatinine 1.7 H Glucose 278 H POC Glucose Hemoglobin A1c Lactic Acid 4.50 H* Calcium Direct Bilirubin 0.3 H Troponin T 0.056 H NT-Pro-B Natriuret Pep Albumin 3.4 L LDL Cholesterol Direct 40 L Arterial Blood Glucose Arterial Blood Ionized Calcium Urine WBC (Auto) Crossmatch 02/12/21 02/12/21 02/12/21 12:20 14:25 16:46 WBC 30.4 H RBC 3.34 L Hgb 9.2 L Hct MCHC 29 L RDW 17.0 H Plt Count 458 H Lymph % (Auto) [place] % (Auto) Lymph # (Auto) [place] # (Auto) Seg Neutrophils % Seg Neuts % (Manual) 90.5 H Lymphocytes % (Manual) 0.5 L Seg Neutrophils # Seg Neutrophils # Man 27.5 H Lymphocytes # (Manual) 0.2 L Monocytes # (Manual) 1.8 H Basophils # (Manual) 0.2 H PT INR APTT Heparin Anti-Xa Level ABG pH POC ABG pCO2 POC ABG pO2 ABG Hemoglobin ABG Oxyhemoglobin ABG Potassium ABG Chloride ABG Glucose Carboxyhemoglobin Sodium Potassium Chloride Carbon Dioxide BUN Creatinine Glucose POC Glucose Hemoglobin A1c Lactic Acid 4.50 H* Calcium Direct Bilirubin Troponin T NT-Pro-B Natriuret Pep 6717 H Albumin LDL Cholesterol Direct Arterial Blood Glucose Arterial Blood Ionized Calcium Urine WBC (Auto) Crossmatch 02/12/21 02/12/21 02/12/21 16:56 20:35 Unknown WBC RBC Hgb Hct MCHC RDW Plt Count Lymph % (Auto) [place] % (Auto) Lymph # (Auto) [place] # (Auto) Seg Neutrophils % Seg Neuts % (Manual) Lymphocytes % (Manual) Seg Neutrophils # Seg Neutrophils # Man Lymphocytes # (Manual) Monocytes # (Manual) Basophils # (Manual) PT INR APTT Heparin Anti-Xa Level ABG pH 7.275 L POC ABG pCO2 POC ABG pO2 185.8 H ABG Hemoglobin 9.5 L ABG Oxyhemoglobin 98.6 H ABG Potassium 4.7 H ABG Chloride ABG Glucose 330 H Carboxyhemoglobin 0.3 L Sodium Potassium Chloride Carbon Dioxide BUN Creatinine Glucose POC Glucose 307 H Hemoglobin A1c Lactic Acid Calcium Direct Bilirubin Troponin T NT-Pro-B Natriuret Pep Albumin LDL Cholesterol Direct Arterial Blood Glucose 330 H Arterial Blood Ionized Calcium Urine WBC (Auto) 42.0 H Crossmatch 02/13/21 02/13/21 02/13/21 00:50 08:09 08:53 WBC RBC Hgb Hct MCHC RDW Plt Count Lymph % (Auto) [place] % (Auto) Lymph # (Auto) [place] # (Auto) Seg Neutrophils % Seg Neuts % (Manual) Lymphocytes % (Manual) Seg Neutrophils # Seg Neutrophils # Man Lymphocytes # (Manual) Monocytes # (Manual) Basophils # (Manual) PT INR APTT Heparin Anti-Xa Level ABG pH POC ABG pCO2 POC ABG pO2 110.6 H ABG Hemoglobin 9.1 L ABG Oxyhemoglobin ABG Potassium 5.0 H ABG Chloride ABG Glucose 338 H Carboxyhemoglobin 0.1 L Sodium Potassium Chloride Carbon Dioxide BUN Creatinine Glucose POC Glucose 278 H 289 H Hemoglobin A1c Lactic Acid Calcium Direct Bilirubin Troponin T NT-Pro-B Natriuret Pep Albumin LDL Cholesterol Direct Arterial Blood Glucose 338 H Arterial Blood Ionized Calcium Urine WBC (Auto) Crossmatch 02/13/21 02/13/21 02/13/21 10:32 12:19 16:53 WBC RBC Hgb Hct MCHC RDW Plt Count Lymph % (Auto) [place] % (Auto) Lymph # (Auto) [place] # (Auto) Seg Neutrophils % Seg Neuts % (Manual) Lymphocytes % (Manual) Seg Neutrophils # Seg Neutrophils # Man Lymphocytes # (Manual) Monocytes # (Manual) Basophils # (Manual) PT INR APTT Heparin Anti-Xa Level ABG pH POC ABG pCO2 POC ABG pO2 ABG Hemoglobin ABG Oxyhemoglobin ABG Potassium ABG Chloride ABG Glucose Carboxyhemoglobin Sodium Potassium Chloride Carbon Dioxide BUN Creatinine Glucose POC Glucose 295 H 268 H Hemoglobin A1c Lactic Acid Calcium Direct Bilirubin Troponin T 0.069 H D NT-Pro-B Natriuret Pep Albumin LDL Cholesterol Direct Arterial Blood Glucose Arterial Blood Ionized Calcium Urine WBC (Auto) Crossmatch 02/13/21 02/13/21 02/13/21 18:00 21:30 Unknown WBC 24.8 H RBC 2.99 L Hgb 8.3 L Hct 26.8 L MCHC RDW 16.4 H Plt Count Lymph % (Auto) [place] % (Auto) Lymph # (Auto) [place] # (Auto) Seg Neutrophils % Seg Neuts % (Manual) 98.0 H Lymphocytes % (Manual) Seg Neutrophils # Seg Neutrophils # Man 24.3 H Lymphocytes # (Manual) 0.0 L Monocytes # (Manual) Basophils # (Manual) PT INR APTT Heparin Anti-Xa Level ABG pH POC ABG pCO2 POC ABG pO2 ABG Hemoglobin ABG Oxyhemoglobin ABG Potassium ABG Chloride ABG Glucose Carboxyhemoglobin Sodium Potassium Chloride Carbon Dioxide BUN Creatinine Glucose POC Glucose 258 H Hemoglobin A1c Lactic Acid Calcium Direct Bilirubin Troponin T 0.051 H D NT-Pro-B Natriuret Pep Albumin LDL Cholesterol Direct Arterial Blood Glucose Arterial Blood Ionized Calcium Urine WBC (Auto) Crossmatch 02/13/21 02/13/21 02/14/21 Unknown Unknown 07:11 WBC RBC Hgb Hct MCHC RDW Plt Count Lymph % (Auto) [place] % (Auto) Lymph # (Auto) [place] # (Auto) Seg Neutrophils % Seg Neuts % (Manual) Lymphocytes % (Manual) Seg Neutrophils # Seg Neutrophils # Man Lymphocytes # (Manual) Monocytes # (Manual) Basophils # (Manual) PT INR APTT Heparin Anti-Xa Level ABG pH POC ABG pCO2 POC ABG pO2 ABG Hemoglobin ABG Oxyhemoglobin ABG Potassium ABG Chloride ABG Glucose Carboxyhemoglobin Sodium Potassium 5.2 H Chloride Carbon Dioxide BUN 29 H Creatinine 2.2 H Glucose 331 H POC Glucose 244 H Hemoglobin A1c 7.0 H Lactic Acid Calcium Direct Bilirubin Troponin T NT-Pro-B Natriuret Pep Albumin 3.1 L LDL Cholesterol Direct Arterial Blood Glucose Arterial Blood Ionized Calcium Urine WBC (Auto) Crossmatch 02/14/21 02/14/21 02/14/21 07:49 07:49 11:37 WBC 25.1 H RBC 2.99 L Hgb 8.5 L Hct 26.6 L MCHC RDW 16.3 H Plt Count Lymph % (Auto) [place] % (Auto) Lymph # (Auto) [place] # (Auto) Seg Neutrophils % Seg Neuts % (Manual) Lymphocytes % (Manual) Seg Neutrophils # Seg Neutrophils # Man Lymphocytes # (Manual) Monocytes # (Manual) Basophils # (Manual) PT INR APTT Heparin Anti-Xa Level ABG pH POC ABG pCO2 POC ABG pO2 ABG Hemoglobin ABG Oxyhemoglobin ABG Potassium ABG Chloride ABG Glucose Carboxyhemoglobin Sodium Potassium Chloride Carbon Dioxide BUN 39 H Creatinine 2.1 H Glucose 253 H POC Glucose 229 H Hemoglobin A1c Lactic Acid Calcium Direct Bilirubin Troponin T NT-Pro-B Natriuret Pep Albumin LDL Cholesterol Direct Arterial Blood Glucose Arterial Blood Ionized Calcium Urine WBC (Auto) Crossmatch 02/14/21 02/14/21 02/15/21 17:04 21:25 05:50 WBC 14.4 H RBC 2.69 L Hgb 7.4 L Hct 24.0 L MCHC RDW 16.3 H Plt Count Lymph % (Auto) [place] % (Auto) Lymph # (Auto) [place] # (Auto) Seg Neutrophils % Seg Neuts % (Manual) Lymphocytes % (Manual) Seg Neutrophils # Seg Neutrophils # Man Lymphocytes # (Manual) Monocytes # (Manual) Basophils # (Manual) PT INR APTT Heparin Anti-Xa Level ABG pH POC ABG pCO2 POC ABG pO2 ABG Hemoglobin ABG Oxyhemoglobin ABG Potassium ABG Chloride ABG Glucose Carboxyhemoglobin Sodium Potassium Chloride Carbon Dioxide BUN Creatinine Glucose POC Glucose 141 H 121 H Hemoglobin A1c Lactic Acid Calcium Direct Bilirubin Troponin T NT-Pro-B Natriuret Pep Albumin LDL Cholesterol Direct Arterial Blood Glucose Arterial Blood Ionized Calcium Urine WBC (Auto) Crossmatch 02/15/21 02/15/21 02/15/21 05:50 07:35 09:09 WBC RBC Hgb Hct MCHC RDW Plt Count Lymph % (Auto) [place] % (Auto) Lymph # (Auto) [place] # (Auto) Seg Neutrophils % Seg Neuts % (Manual) Lymphocytes % (Manual) Seg Neutrophils # Seg Neutrophils # Man Lymphocytes # (Manual) Monocytes # (Manual) Basophils # (Manual) PT INR APTT Heparin Anti-Xa Level ABG pH 7.272 L POC ABG pCO2 53.9 H POC ABG pO2 78.7 L ABG Hemoglobin 8.8 L ABG Oxyhemoglobin 93.0 L ABG Potassium ABG Chloride ABG Glucose 197 H Carboxyhemoglobin 1.8 H Sodium Potassium Chloride 107.1 H Carbon Dioxide BUN 44 H Creatinine 2.3 H Glucose 162 H POC Glucose 182 H Hemoglobin A1c Lactic Acid Calcium Direct Bilirubin Troponin T NT-Pro-B Natriuret Pep Albumin LDL Cholesterol Direct Arterial Blood Glucose 197 H Arterial Blood Ionized Calcium Urine WBC (Auto) Crossmatch 02/15/21 02/15/21 02/15/21 11:30 11:40 16:07 WBC RBC Hgb Hct MCHC RDW Plt Count Lymph % (Auto) [place] % (Auto) Lymph # (Auto) [place] # (Auto) Seg Neutrophils % Seg Neuts % (Manual) Lymphocytes % (Manual) Seg Neutrophils # Seg Neutrophils # Man Lymphocytes # (Manual) Monocytes # (Manual) Basophils # (Manual) PT INR APTT Heparin Anti-Xa Level ABG pH POC ABG pCO2 POC ABG pO2 ABG Hemoglobin ABG Oxyhemoglobin ABG Potassium ABG Chloride ABG Glucose Carboxyhemoglobin Sodium Potassium Chloride Carbon Dioxide BUN Creatinine Glucose POC Glucose 160 H 142 H Hemoglobin A1c Lactic Acid Calcium Direct Bilirubin Troponin T NT-Pro-B Natriuret Pep Albumin LDL Cholesterol Direct Arterial Blood Glucose Arterial Blood Ionized Calcium Urine WBC (Auto) Crossmatch See Detail 02/15/21 02/16/21 02/16/21 21:52 08:09 11:51 WBC RBC Hgb Hct MCHC RDW Plt Count Lymph % (Auto) [place] % (Auto) Lymph # (Auto) [place] # (Auto) Seg Neutrophils % Seg Neuts % (Manual) Lymphocytes % (Manual) Seg Neutrophils # Seg Neutrophils # Man Lymphocytes # (Manual) Monocytes # (Manual) Basophils # (Manual) PT INR APTT Heparin Anti-Xa Level ABG pH POC ABG pCO2 POC ABG pO2 ABG Hemoglobin ABG Oxyhemoglobin ABG Potassium ABG Chloride ABG Glucose Carboxyhemoglobin Sodium Potassium Chloride Carbon Dioxide BUN Creatinine Glucose POC Glucose 143 H 167 H 186 H Hemoglobin A1c Lactic Acid Calcium Direct Bilirubin Troponin T NT-Pro-B Natriuret Pep Albumin LDL Cholesterol Direct Arterial Blood Glucose Arterial Blood Ionized Calcium Urine WBC (Auto) Crossmatch 02/16/21 02/16/21 02/16/21 14:45 14:45 16:29 WBC 15.4 H RBC 3.11 L Hgb 9.1 L Hct 27.8 L MCHC RDW 15.9 H Plt Count Lymph % (Auto) 3.6 L [place] % (Auto) 9.0 H Lymph # (Auto) 0.6 L [place] # (Auto) 1.4 H Seg Neutrophils % 87.3 H Seg Neuts % (Manual) Lymphocytes % (Manual) Seg Neutrophils # 13.4 H Seg Neutrophils # Man Lymphocytes # (Manual) Monocytes # (Manual) Basophils # (Manual) PT INR APTT Heparin Anti-Xa Level ABG pH POC ABG pCO2 POC ABG pO2 ABG Hemoglobin ABG Oxyhemoglobin ABG Potassium ABG Chloride ABG Glucose Carboxyhemoglobin Sodium Potassium Chloride Carbon Dioxide BUN 53 H Creatinine 2.5 H Glucose 201 H POC Glucose 180 H Hemoglobin A1c Lactic Acid Calcium Direct Bilirubin Troponin T NT-Pro-B Natriuret Pep Albumin LDL Cholesterol Direct Arterial Blood Glucose Arterial Blood Ionized Calcium Urine WBC (Auto) Crossmatch 02/16/21 02/17/21 02/17/21 21:33 05:38 05:38 WBC 13.4 H RBC 2.91 L Hgb 8.4 L Hct 25.7 L MCHC RDW 15.8 H Plt Count Lymph % (Auto) [place] % (Auto) Lymph # (Auto) [place] # (Auto) Seg Neutrophils % Seg Neuts % (Manual) Lymphocytes % (Manual) Seg Neutrophils # Seg Neutrophils # Man Lymphocytes # (Manual) Monocytes # (Manual) Basophils # (Manual) PT INR APTT Heparin Anti-Xa Level ABG pH POC ABG pCO2 POC ABG pO2 ABG Hemoglobin ABG Oxyhemoglobin ABG Potassium ABG Chloride ABG Glucose Carboxyhemoglobin Sodium 146 H Potassium Chloride 108.3 H Carbon Dioxide BUN 55 H Creatinine 2.5 H Glucose 169 H POC Glucose 164 H Hemoglobin A1c Lactic Acid Calcium Direct Bilirubin Troponin T NT-Pro-B Natriuret Pep Albumin LDL Cholesterol Direct Arterial Blood Glucose Arterial Blood Ionized Calcium Urine WBC (Auto) Crossmatch 02/17/21 02/17/21 02/17/21 07:28 12:12 15:38 WBC RBC Hgb Hct MCHC RDW Plt Count Lymph % (Auto) [place] % (Auto) Lymph # (Auto) [place] # (Auto) Seg Neutrophils % Seg Neuts % (Manual) Lymphocytes % (Manual) Seg Neutrophils # Seg Neutrophils # Man Lymphocytes # (Manual) Monocytes # (Manual) Basophils # (Manual) PT INR APTT Heparin Anti-Xa Level ABG pH POC ABG pCO2 POC ABG pO2 ABG Hemoglobin ABG Oxyhemoglobin ABG Potassium ABG Chloride ABG Glucose Carboxyhemoglobin Sodium Potassium Chloride Carbon Dioxide BUN Creatinine Glucose POC Glucose 142 H 156 H 161 H Hemoglobin A1c Lactic Acid Calcium Direct Bilirubin Troponin T NT-Pro-B Natriuret Pep Albumin LDL Cholesterol Direct Arterial Blood Glucose Arterial Blood Ionized Calcium Urine WBC (Auto) Crossmatch 02/17/21 02/18/21 02/18/21 21:42 07:10 07:10 WBC RBC 2.92 L Hgb 8.6 L Hct 26.0 L MCHC RDW 15.8 H Plt Count Lymph % (Auto) 5.8 L [place] % (Auto) Lymph # (Auto) 0.5 L [place] # (Auto) Seg Neutrophils % 86.6 H Seg Neuts % (Manual) Lymphocytes % (Manual) Seg Neutrophils # 8.0 H Seg Neutrophils # Man Lymphocytes # (Manual) Monocytes # (Manual) Basophils # (Manual) PT INR APTT Heparin Anti-Xa Level ABG pH POC ABG pCO2 POC ABG pO2 ABG Hemoglobin ABG Oxyhemoglobin ABG Potassium ABG Chloride ABG Glucose Carboxyhemoglobin Sodium 150 H Potassium Chloride 110.3 H Carbon Dioxide BUN 63 H Creatinine 2.5 H Glucose 168 H POC Glucose 131 H Hemoglobin A1c Lactic Acid Calcium Direct Bilirubin Troponin T 0.057 H NT-Pro-B Natriuret Pep Albumin LDL Cholesterol Direct Arterial Blood Glucose Arterial Blood Ionized Calcium Urine WBC (Auto) Crossmatch 02/18/21 02/18/21 02/18/21 08:28 11:51 17:05 WBC RBC Hgb Hct MCHC RDW Plt Count Lymph % (Auto) [place] % (Auto) Lymph # (Auto) [place] # (Auto) Seg Neutrophils % Seg Neuts % (Manual) Lymphocytes % (Manual) Seg Neutrophils # Seg Neutrophils # Man Lymphocytes # (Manual) Monocytes # (Manual) Basophils # (Manual) PT INR APTT Heparin Anti-Xa Level ABG pH POC ABG pCO2 POC ABG pO2 ABG Hemoglobin ABG Oxyhemoglobin ABG Potassium ABG Chloride ABG Glucose Carboxyhemoglobin Sodium Potassium Chloride Carbon Dioxide BUN Creatinine Glucose POC Glucose 150 H 167 H 144 H Hemoglobin A1c Lactic Acid Calcium Direct Bilirubin Troponin T NT-Pro-B Natriuret Pep Albumin LDL Cholesterol Direct Arterial Blood Glucose Arterial Blood Ionized Calcium Urine WBC (Auto) Crossmatch 02/18/21 02/19/21 02/19/21 21:47 05:20 07:52 WBC RBC Hgb Hct MCHC RDW Plt Count Lymph % (Auto) [place] % (Auto) Lymph # (Auto) [place] # (Auto) Seg Neutrophils % Seg Neuts % (Manual) Lymphocytes % (Manual) Seg Neutrophils # Seg Neutrophils # Man Lymphocytes # (Manual) Monocytes # (Manual) Basophils # (Manual) PT INR APTT Heparin Anti-Xa Level ABG pH POC ABG pCO2 POC ABG pO2 ABG Hemoglobin ABG Oxyhemoglobin ABG Potassium ABG Chloride ABG Glucose Carboxyhemoglobin Sodium 150 H Potassium Chloride 109.3 H Carbon Dioxide BUN 72 H Creatinine 2.8 H Glucose 222 H POC Glucose 155 H 221 H Hemoglobin A1c Lactic Acid Calcium Direct Bilirubin Troponin T NT-Pro-B Natriuret Pep Albumin LDL Cholesterol Direct Arterial Blood Glucose Arterial Blood Ionized Calcium Urine WBC (Auto) Crossmatch 02/19/21 02/19/21 02/19/21 11:36 12:08 17:48 WBC RBC Hgb Hct MCHC RDW Plt Count Lymph % (Auto) [place] % (Auto) Lymph # (Auto) [place] # (Auto) Seg Neutrophils % Seg Neuts % (Manual) Lymphocytes % (Manual) Seg Neutrophils # Seg Neutrophils # Man Lymphocytes # (Manual) Monocytes # (Manual) Basophils # (Manual) PT INR APTT Heparin Anti-Xa Level ABG pH POC ABG pCO2 POC ABG pO2 ABG Hemoglobin 10.3 L ABG Oxyhemoglobin ABG Potassium ABG Chloride 111.0 H ABG Glucose 217 H Carboxyhemoglobin 0.3 L Sodium Potassium Chloride Carbon Dioxide BUN Creatinine Glucose POC Glucose 206 H 174 H Hemoglobin A1c Lactic Acid Calcium Direct Bilirubin Troponin T NT-Pro-B Natriuret Pep Albumin LDL Cholesterol Direct Arterial Blood Glucose 217 H Arterial Blood Ionized Calcium Urine WBC (Auto) Crossmatch 02/19/21 02/20/21 02/20/21 21:17 03:17 05:04 WBC RBC Hgb Hct MCHC RDW Plt Count Lymph % (Auto) [place] % (Auto) Lymph # (Auto) [place] # (Auto) Seg Neutrophils % Seg Neuts % (Manual) Lymphocytes % (Manual) Seg Neutrophils # Seg Neutrophils # Man Lymphocytes # (Manual) Monocytes # (Manual) Basophils # (Manual) PT INR APTT Heparin Anti-Xa Level ABG pH 7.480 H POC ABG pCO2 31.3 L POC ABG pO2 194.3 H ABG Hemoglobin 8.9 L ABG Oxyhemoglobin 98.9 H ABG Potassium ABG Chloride 113.0 H ABG Glucose 118 H Carboxyhemoglobin 0.3 L Sodium Potassium Chloride Carbon Dioxide BUN Creatinine Glucose POC Glucose 161 H 108 H Hemoglobin A1c Lactic Acid Calcium Direct Bilirubin Troponin T NT-Pro-B Natriuret Pep Albumin LDL Cholesterol Direct Arterial Blood Glucose 118 H Arterial Blood Ionized Calcium Urine WBC (Auto) Crossmatch 02/20/21 02/20/21 02/20/21 05:45 05:45 11:34 WBC 15.4 H RBC 3.04 L Hgb 8.6 L Hct 26.9 L MCHC RDW 16.3 H Plt Count Lymph % (Auto) [place] % (Auto) Lymph # (Auto) [place] # (Auto) Seg Neutrophils % Seg Neuts % (Manual) Lymphocytes % (Manual) Seg Neutrophils # Seg Neutrophils # Man Lymphocytes # (Manual) Monocytes # (Manual) Basophils # (Manual) PT INR APTT Heparin Anti-Xa Level ABG pH POC ABG pCO2 POC ABG pO2 ABG Hemoglobin ABG Oxyhemoglobin ABG Potassium ABG Chloride ABG Glucose Carboxyhemoglobin Sodium 148 H Potassium 3.4 L Chloride 111.2 H Carbon Dioxide BUN 75 H Creatinine 3.4 H Glucose 112 H POC Glucose 143 H Hemoglobin A1c Lactic Acid Calcium 8.2 L Direct Bilirubin Troponin T 0.075 H D NT-Pro-B Natriuret Pep Albumin LDL Cholesterol Direct Arterial Blood Glucose Arterial Blood Ionized Calcium Urine WBC (Auto) Crossmatch 02/20/21 02/20/21 02/20/21 17:34 20:45 23:21 WBC RBC Hgb Hct MCHC RDW Plt Count Lymph % (Auto) [place] % (Auto) Lymph # (Auto) [place] # (Auto) Seg Neutrophils % Seg Neuts % (Manual) Lymphocytes % (Manual) Seg Neutrophils # Seg Neutrophils # Man Lymphocytes # (Manual) Monocytes # (Manual) Basophils # (Manual) PT INR APTT Heparin Anti-Xa Level 1.36 H ABG pH POC ABG pCO2 POC ABG pO2 ABG Hemoglobin ABG Oxyhemoglobin ABG Potassium ABG Chloride ABG Glucose Carboxyhemoglobin Sodium Potassium Chloride Carbon Dioxide BUN Creatinine Glucose POC Glucose 168 H 157 H Hemoglobin A1c Lactic Acid Calcium Direct Bilirubin Troponin T NT-Pro-B Natriuret Pep Albumin LDL Cholesterol Direct Arterial Blood Glucose Arterial Blood Ionized Calcium Urine WBC (Auto) Crossmatch 02/20/21 02/20/21 02/21/21 Unknown Unknown 02:53 WBC RBC Hgb 8.6 L Hct 27.1 L MCHC RDW Plt Count Lymph % (Auto) [place] % (Auto) Lymph # (Auto) [place] # (Auto) Seg Neutrophils % Seg Neuts % (Manual) Lymphocytes % (Manual) Seg Neutrophils # Seg Neutrophils # Man Lymphocytes # (Manual) Monocytes # (Manual) Basophils # (Manual) PT 19.5 H INR 1.60 H APTT Heparin Anti-Xa Level ABG pH POC ABG pCO2 POC ABG pO2 73.5 L ABG Hemoglobin 8.7 L ABG Oxyhemoglobin 93.7 L ABG Potassium ABG Chloride 111.0 H ABG Glucose 195 H Carboxyhemoglobin Sodium Potassium Chloride Carbon Dioxide BUN Creatinine Glucose POC Glucose Hemoglobin A1c Lactic Acid Calcium Direct Bilirubin Troponin T NT-Pro-B Natriuret Pep Albumin LDL Cholesterol Direct Arterial Blood Glucose 195 H Arterial Blood Ionized Calcium Urine WBC (Auto) Crossmatch 02/21/21 02/21/21 02/21/21 05:06 05:58 06:10 WBC 12.8 H RBC 2.91 L Hgb 8.2 L Hct 25.7 L MCHC RDW 16.3 H Plt Count Lymph % (Auto) 9.2 L [place] % (Auto) 7.9 H Lymph # (Auto) [place] # (Auto) 1.0 H Seg Neutrophils % 80.1 H Seg Neuts % (Manual) Lymphocytes % (Manual) Seg Neutrophils # 10.2 H Seg Neutrophils # Man Lymphocytes # (Manual) Monocytes # (Manual) Basophils # (Manual) PT INR APTT Heparin Anti-Xa Level ABG pH POC ABG pCO2 POC ABG pO2 ABG Hemoglobin ABG Oxyhemoglobin ABG Potassium ABG Chloride ABG Glucose Carboxyhemoglobin Sodium 147 H Potassium Chloride 108.4 H Carbon Dioxide BUN 80 H Creatinine 3.2 H Glucose 220 H POC Glucose 202 H Hemoglobin A1c Lactic Acid Calcium Direct Bilirubin Troponin T 0.086 H NT-Pro-B Natriuret Pep Albumin LDL Cholesterol Direct Arterial Blood Glucose Arterial Blood Ionized Calcium Urine WBC (Auto) Crossmatch 02/21/21 02/21/21 02/21/21 06:10 11:52 17:49 WBC RBC Hgb Hct MCHC RDW Plt Count Lymph % (Auto) [place] % (Auto) Lymph # (Auto) [place] # (Auto) Seg Neutrophils % Seg Neuts % (Manual) Lymphocytes % (Manual) Seg Neutrophils # Seg Neutrophils # Man Lymphocytes # (Manual) Monocytes # (Manual) Basophils # (Manual) PT INR APTT Heparin Anti-Xa Level 1.07 H ABG pH POC ABG pCO2 POC ABG pO2 ABG Hemoglobin ABG Oxyhemoglobin ABG Potassium ABG Chloride ABG Glucose Carboxyhemoglobin Sodium Potassium Chloride Carbon Dioxide BUN Creatinine Glucose POC Glucose 240 H 243 H Hemoglobin A1c Lactic Acid Calcium Direct Bilirubin Troponin T NT-Pro-B Natriuret Pep Albumin LDL Cholesterol Direct Arterial Blood Glucose Arterial Blood Ionized Calcium Urine WBC (Auto) Crossmatch 02/21/21 02/22/21 02/22/21 23:11 03:11 04:00 WBC RBC Hgb Hct MCHC RDW Plt Count Lymph % (Auto) [place] % (Auto) Lymph # (Auto) [place] # (Auto) Seg Neutrophils % Seg Neuts % (Manual) Lymphocytes % (Manual) Seg Neutrophils # Seg Neutrophils # Man Lymphocytes # (Manual) Monocytes # (Manual) Basophils # (Manual) PT INR APTT Heparin Anti-Xa Level ABG pH POC ABG pCO2 POC ABG pO2 80.7 L ABG Hemoglobin 9.7 L ABG Oxyhemoglobin ABG Potassium ABG Chloride ABG Glucose 315 H Carboxyhemoglobin Sodium Potassium Chloride Carbon Dioxide BUN 83 H Creatinine 3.3 H Glucose 317 H POC Glucose 264 H Hemoglobin A1c Lactic Acid Calcium Direct Bilirubin Troponin T 0.064 H D NT-Pro-B Natriuret Pep Albumin LDL Cholesterol Direct Arterial Blood Glucose 315 H Arterial Blood Ionized Calcium 4.5 L Urine WBC (Auto) Crossmatch 02/22/21 02/22/21 02/22/21 04:00 05:15 11:12 WBC 15.8 H RBC 3.16 L Hgb 9.0 L Hct 28.4 L MCHC RDW 16.7 H Plt Count Lymph % (Auto) 7.1 L [place] % (Auto) Lymph # (Auto) 1.1 L [place] # (Auto) 1.0 H Seg Neutrophils % 84.7 H Seg Neuts % (Manual) Lymphocytes % (Manual) Seg Neutrophils # 13.4 H Seg Neutrophils # Man Lymphocytes # (Manual) Monocytes # (Manual) Basophils # (Manual) PT INR APTT Heparin Anti-Xa Level ABG pH POC ABG pCO2 POC ABG pO2 ABG Hemoglobin ABG Oxyhemoglobin ABG Potassium ABG Chloride ABG Glucose Carboxyhemoglobin Sodium Potassium Chloride Carbon Dioxide BUN Creatinine Glucose POC Glucose 298 H 289 H Hemoglobin A1c Lactic Acid Calcium Direct Bilirubin Troponin T NT-Pro-B Natriuret Pep Albumin LDL Cholesterol Direct Arterial Blood Glucose Arterial Blood Ionized Calcium Urine WBC (Auto) Crossmatch 02/22/21 18:25 WBC RBC Hgb Hct MCHC RDW Plt Count Lymph % (Auto) [place] % (Auto) Lymph # (Auto) [place] # (Auto) Seg Neutrophils % Seg Neuts % (Manual) Lymphocytes % (Manual) Seg Neutrophils # Seg Neutrophils # Man Lymphocytes # (Manual) Monocytes # (Manual) Basophils # (Manual) PT INR APTT Heparin Anti-Xa Level ABG pH POC ABG pCO2 POC ABG pO2 ABG Hemoglobin ABG Oxyhemoglobin ABG Potassium ABG Chloride ABG Glucose Carboxyhemoglobin Sodium Potassium Chloride Carbon Dioxide BUN Creatinine Glucose POC Glucose 354 H Hemoglobin A1c Lactic Acid Calcium Direct Bilirubin Troponin T NT-Pro-B Natriuret Pep Albumin LDL Cholesterol Direct Arterial Blood Glucose Arterial Blood Ionized Calcium Urine WBC (Auto) Crossmatch Chest x-ray: report reviewed, image reviewed
[2021-02-22] MEDS ORDERED: fentaNYL 100 MCG/2 ML INJ IV PRN (20:30)
[2021-02-23] MEDS: INSULIN LISPRO 100 UNIT/ML SUB-Q SCH ×4 (00:01→17:57)
[2021-02-23] MEDS: fentaNYL DRIP Premix 2,000 MCG/100 ML BAG IV SCH ×2 (00:34→14:35)
[2021-02-23 05:38] LABS: Calcium 7.3 mg/dL (8.4-10.2)
[2021-02-23] MEDS ORDERED: INSULIN GLARGINE 100 UNITS/ML SUB-Q SCH (08:00)
[2021-02-23] MEDS: ASPIRIN 81 MG TAB CHEW PO SCH (09:45)
[2021-02-23] MEDS: FAMOTIDINE 20 MG TAB PO SCH (09:46)
[2021-02-23] MEDS: SENNOSIDES/DOCUSATE SODIUM 8.6/50 MG TAB FEEDTUBE SCH ×2 (09:46→21:43)
[2021-02-23 10:30] LABS: Protein/Creatinine Ratio,Urine 0.69
--- NOTE | 2021-02-23 11:00 | Progress Note ---
Assessment and Plan 71 y/o female with acute respiratory failure, cardiac arrest with subsequent ROSC and then self-extubation, now weaned to HFNC with bilateral pleural effusions, cardiomegaly and elevated BNP. 02/23/21: Intubated and sedated. Remains on pressors. Hopeful that with Dialysis and fluid removal, can start to see some improvement. Will continue PEEP at 10 until FiO2 is around 40-45%. Follow up repeat HD labs. Follow up any new cardiology recs. Very guarded prognosis. Per my partner, spoke with over the weekend and he is considering DNR status. 1. Follow up ECHO 2. Agree with obtaining results/records from [facility] 3. Wean Vasopressors for MAPS>60 and normal mentation. 4. Would hold all antihypertensive and rate control meds until off vasopressor therapy. 5. If able to be weaned off pressors, can likely go to step down unit. WIll continue to monitor and follow Subjective Date of service: 02/23/21 Principal diagnosis: Pulmonary Edema Interval history: no acute events. Renal has decided to do HD. [employer]'s placing vascath right now. Oxygenation is better. Objective Vital Signs - 12hr 02/22/21 02/22/21 02/22/21 23:00 23:15 23:30 Temperature Pulse Rate 100 H 100 H 101 H Pulse Rate [ From Monitor] Respiratory 18 18 18 Rate Blood Pressure 137/51 130/49 138/51 O2 Sat by Pulse 92 92 90 Oximetry 02/22/21 02/22/21 02/23/21 23:45 23:59 00:00 Temperature 99.0 F Pulse Rate 100 H 101 H Pulse Rate [ 94 H From Monitor] Respiratory 18 18 Rate Blood Pressure 130/53 132/52 O2 Sat by Pulse 93 93 Oximetry 02/23/21 02/23/21 02/23/21 00:15 00:30 00:45 Temperature Pulse Rate 100 H 101 H 101 H Pulse Rate [ From Monitor] Respiratory 18 18 18 Rate Blood Pressure 115/50 125/52 122/48 O2 Sat by Pulse 93 93 92 Oximetry 02/23/21 02/23/21 02/23/21 01:00 01:15 01:30 Temperature Pulse Rate 106 H 98 H 95 H Pulse Rate [ From Monitor] Respiratory 17 18 18 Rate Blood Pressure 132/49 107/44 94/37 O2 Sat by Pulse 89 94 93 Oximetry 02/23/21 02/23/21 02/23/21 01:45 02:00 02:15 Temperature Pulse Rate 92 H 91 H 90 Pulse Rate [ From Monitor] Respiratory 19 18 18 Rate Blood Pressure 98/38 91/36 86/36 O2 Sat by Pulse 93 93 Oximetry 02/23/21 02/23/21 02/23/21 02:30 02:46 03:00 Temperature Pulse Rate 89 90 88 Pulse Rate [ From Monitor] Respiratory 18 13 18 Rate Blood Pressure 91/36 102/45 81/35 O2 Sat by Pulse 93 86 92 Oximetry 02/23/21 02/23/21 02/23/21 03:15 03:24 03:30 Temperature 98.9 F Pulse Rate 88 88 Pulse Rate [ From Monitor] Respiratory 18 18 Rate Blood Pressure 93/39 94/37 O2 Sat by Pulse 92 93 Oximetry 02/23/21 02/23/21 02/23/21 03:45 03:50 04:00 Temperature Pulse Rate 88 87 87 Pulse Rate [ 87 From Monitor] Respiratory 18 18 Rate Blood Pressure 95/37 95/37 96/39 O2 Sat by Pulse 93 94 94 Oximetry 02/23/21 02/23/21 02/23/21 04:15 04:30 04:45 Temperature Pulse Rate 87 87 87 Pulse Rate [ From Monitor] Respiratory 18 18 18 Rate Blood Pressure 104/38 99/40 93/37 O2 Sat by Pulse 94 94 94 Oximetry 02/23/21 02/23/21 02/23/21 05:00 05:15 05:30 Temperature Pulse Rate 107 H 88 88 Pulse Rate [ From Monitor] Respiratory 18 18 18 Rate Blood Pressure 100/40 93/36 92/37 O2 Sat by Pulse 95 94 Oximetry 02/23/21 02/23/21 02/23/21 05:45 06:00 06:15 Temperature Pulse Rate 87 87 87 Pulse Rate [ From Monitor] Respiratory 18 18 18 Rate Blood Pressure 95/39 94/37 99/37 O2 Sat by Pulse 94 93 94 Oximetry 02/23/21 02/23/21 02/23/21 06:30 06:45 07:00 Temperature Pulse Rate 87 79 78 Pulse Rate [ From Monitor] Respiratory 18 18 18 Rate Blood Pressure 91/36 94/36 98/36 O2 Sat by Pulse 94 94 Oximetry 02/23/21 02/23/21 02/23/21 07:15 07:29 07:30 Temperature 100.6 F H Pulse Rate 79 79 Pulse Rate [ From Monitor] Respiratory 18 18 Rate Blood Pressure 98/34 96/35 O2 Sat by Pulse 94 93 Oximetry 02/23/21 02/23/21 02/23/21 07:45 08:00 08:23 Temperature Pulse Rate 78 81 80 Pulse Rate [ 85 From Monitor] Respiratory 18 18 Rate Blood Pressure 92/36 94/36 94/54 O2 Sat by Pulse 94 93 94 Oximetry 02/23/21 09:20 Temperature Pulse Rate 113 H Pulse Rate [ From Monitor] Respiratory Rate Blood Pressure 171/54 O2 Sat by Pulse 94 Oximetry Constitutional: other (intubated, sedated, on ventilator) Eyes: non-icteric ENT: oropharynx moist Neck: supple, other (large in circumference) Effort: normal Ascultation: Bilateral: diminished breath sounds, rales, other (coarse BS bilaterally) Percussion: Bilateral: dull (bases) Cardiovascular: other (RRR with no mrg) Gastrointestinal: normoactive bowel sounds, soft, non-tender, non-distended Integumentary: normal Extremities: no cyanosis, pink and warm, anasarca Neurologic: unable to assess Psychiatric: other (unable to assess) CBC and BMP: 02/22/21 04:00 02/23/21 04:00 ABG, PT/INR, D-dimer: ABG ABG pH 7.289 (7.320-7.450) L 02/23/21 09:20 POC ABG pCO2 45.6 mmHg (32.0-48.0) 02/23/21 09:20 POC ABG pO2 75.2 mmHg (83-108) L 02/23/21 09:20 POC ABG HCO3 21.4 02/23/21 09:20 ABG O2 Saturation 94.5 (0-100) 02/23/21 09:20 PT/INR, D-dimer PT 19.5 Sec. (12.2-14.9) H 02/20/21 Unknown INR 1.60 (0.87-1.13) H 02/20/21 Unknown Abnormal lab findings: Abnormal Labs 02/12/21 02/12/21 02/12/21 10:45 11:59 12:20 WBC RBC Hgb Hct MCHC RDW Plt Count Lymph % (Auto) Graves % (Auto) Lymph # (Auto) Graves # (Auto) Seg Neutrophils % Seg Neuts % (Manual) Lymphocytes % (Manual) Seg Neutrophils # Seg Neutrophils # Man Lymphocytes # (Manual) Monocytes # (Manual) Basophils # (Manual) PT INR APTT Heparin Anti-Xa Level ABG pH 7.265 L POC ABG pCO2 49.9 H POC ABG pO2 168.3 H ABG Hemoglobin 10.1 L ABG Oxyhemoglobin 98.5 H ABG Sodium ABG Potassium ABG Chloride ABG Glucose 330 H Carboxyhemoglobin 0.3 L Sodium Potassium Chloride Carbon Dioxide BUN Creatinine Glucose POC Glucose 291 H Hemoglobin A1c Lactic Acid Calcium Direct Bilirubin Troponin T 0.058 H NT-Pro-B Natriuret Pep Albumin LDL Cholesterol Direct Arterial Blood Glucose 330 H Arterial Blood Ionized Calcium Urine WBC (Auto) Urine Creatinine Urine Total Protein Crossmatch 02/12/21 02/12/21 02/12/21 12:20 12:20 12:20 WBC RBC Hgb Hct MCHC RDW Plt Count Lymph % (Auto) Graves % (Auto) Lymph # (Auto) Graves # (Auto) Seg Neutrophils % Seg Neuts % (Manual) Lymphocytes % (Manual) Seg Neutrophils # Seg Neutrophils # Man Lymphocytes # (Manual) Monocytes # (Manual) Basophils # (Manual) PT INR APTT 22.9 L Heparin Anti-Xa Level ABG pH POC ABG pCO2 POC ABG pO2 ABG Hemoglobin ABG Oxyhemoglobin ABG Sodium ABG Potassium ABG Chloride ABG Glucose Carboxyhemoglobin Sodium Potassium Chloride Carbon Dioxide 21 L BUN 20 H Creatinine 1.7 H Glucose 278 H POC Glucose Hemoglobin A1c Lactic Acid 4.50 H* Calcium Direct Bilirubin 0.3 H Troponin T 0.056 H NT-Pro-B Natriuret Pep Albumin 3.4 L LDL Cholesterol Direct 40 L Arterial Blood Glucose Arterial Blood Ionized Calcium Urine WBC (Auto) Urine Creatinine Urine Total Protein Crossmatch 02/12/21 02/12/21 02/12/21 12:20 14:25 16:46 WBC 30.4 H RBC 3.34 L Hgb 9.2 L Hct MCHC 29 L RDW 17.0 H Plt Count 458 H Lymph % (Auto) Graves % (Auto) Lymph # (Auto) Graves # (Auto) Seg Neutrophils % Seg Neuts % (Manual) 90.5 H Lymphocytes % (Manual) 0.5 L Seg Neutrophils # Seg Neutrophils # Man 27.5 H Lymphocytes # (Manual) 0.2 L Monocytes # (Manual) 1.8 H Basophils # (Manual) 0.2 H PT INR APTT Heparin Anti-Xa Level ABG pH POC ABG pCO2 POC ABG pO2 ABG Hemoglobin ABG Oxyhemoglobin ABG Sodium ABG Potassium ABG Chloride ABG Glucose Carboxyhemoglobin Sodium Potassium Chloride Carbon Dioxide BUN Creatinine Glucose POC Glucose Hemoglobin A1c Lactic Acid 4.50 H* Calcium Direct Bilirubin Troponin T NT-Pro-B Natriuret Pep 6717 H Albumin LDL Cholesterol Direct Arterial Blood Glucose Arterial Blood Ionized Calcium Urine WBC (Auto) Urine Creatinine Urine Total Protein Crossmatch 02/12/21 02/12/21 02/12/21 16:56 20:35 Unknown WBC RBC Hgb Hct MCHC RDW Plt Count Lymph % (Auto) Graves % (Auto) Lymph # (Auto) Graves # (Auto) Seg Neutrophils % Seg Neuts % (Manual) Lymphocytes % (Manual) Seg Neutrophils # Seg Neutrophils # Man Lymphocytes # (Manual) Monocytes # (Manual) Basophils # (Manual) PT INR APTT Heparin Anti-Xa Level ABG pH 7.275 L POC ABG pCO2 POC ABG pO2 185.8 H ABG Hemoglobin 9.5 L ABG Oxyhemoglobin 98.6 H ABG Sodium ABG Potassium 4.7 H ABG Chloride ABG Glucose 330 H Carboxyhemoglobin 0.3 L Sodium Potassium Chloride Carbon Dioxide BUN Creatinine Glucose POC Glucose 307 H Hemoglobin A1c Lactic Acid Calcium Direct Bilirubin Troponin T NT-Pro-B Natriuret Pep Albumin LDL Cholesterol Direct Arterial Blood Glucose 330 H Arterial Blood Ionized Calcium Urine WBC (Auto) 42.0 H Urine Creatinine Urine Total Protein Crossmatch 02/13/21 02/13/21 02/13/21 00:50 08:09 08:53 WBC RBC Hgb Hct MCHC RDW Plt Count Lymph % (Auto) Graves % (Auto) Lymph # (Auto) Graves # (Auto) Seg Neutrophils % Seg Neuts % (Manual) Lymphocytes % (Manual) Seg Neutrophils # Seg Neutrophils # Man Lymphocytes # (Manual) Monocytes # (Manual) Basophils # (Manual) PT INR APTT Heparin Anti-Xa Level ABG pH POC ABG pCO2 POC ABG pO2 110.6 H ABG Hemoglobin 9.1 L ABG Oxyhemoglobin ABG Sodium ABG Potassium 5.0 H ABG Chloride ABG Glucose 338 H Carboxyhemoglobin 0.1 L Sodium Potassium Chloride Carbon Dioxide BUN Creatinine Glucose POC Glucose 278 H 289 H Hemoglobin A1c Lactic Acid Calcium Direct Bilirubin Troponin T NT-Pro-B Natriuret Pep Albumin LDL Cholesterol Direct Arterial Blood Glucose 338 H Arterial Blood Ionized Calcium Urine WBC (Auto) Urine Creatinine Urine Total Protein Crossmatch 02/13/21 02/13/21 02/13/21 10:32 12:19 16:53 WBC RBC Hgb Hct MCHC RDW Plt Count Lymph % (Auto) Graves % (Auto) Lymph # (Auto) Graves # (Auto) Seg Neutrophils % Seg Neuts % (Manual) Lymphocytes % (Manual) Seg Neutrophils # Seg Neutrophils # Man Lymphocytes # (Manual) Monocytes # (Manual) Basophils # (Manual) PT INR APTT Heparin Anti-Xa Level ABG pH POC ABG pCO2 POC ABG pO2 ABG Hemoglobin ABG Oxyhemoglobin ABG Sodium ABG Potassium ABG Chloride ABG Glucose Carboxyhemoglobin Sodium Potassium Chloride Carbon Dioxide BUN Creatinine Glucose POC Glucose 295 H 268 H Hemoglobin A1c Lactic Acid Calcium Direct Bilirubin Troponin T 0.069 H D NT-Pro-B Natriuret Pep Albumin LDL Cholesterol Direct Arterial Blood Glucose Arterial Blood Ionized Calcium Urine WBC (Auto) Urine Creatinine Urine Total Protein Crossmatch 02/13/21 02/13/21 02/13/21 18:00 21:30 Unknown WBC 24.8 H RBC 2.99 L Hgb 8.3 L Hct 26.8 L MCHC RDW 16.4 H Plt Count Lymph % (Auto) Graves % (Auto) Lymph # (Auto) Graves # (Auto) Seg Neutrophils % Seg Neuts % (Manual) 98.0 H Lymphocytes % (Manual) Seg Neutrophils # Seg Neutrophils # Man 24.3 H Lymphocytes # (Manual) 0.0 L Monocytes # (Manual) Basophils # (Manual) PT INR APTT Heparin Anti-Xa Level ABG pH POC ABG pCO2 POC ABG pO2 ABG Hemoglobin ABG Oxyhemoglobin ABG Sodium ABG Potassium ABG Chloride ABG Glucose Carboxyhemoglobin Sodium Potassium Chloride Carbon Dioxide BUN Creatinine Glucose POC Glucose 258 H Hemoglobin A1c Lactic Acid Calcium Direct Bilirubin Troponin T 0.051 H D NT-Pro-B Natriuret Pep Albumin LDL Cholesterol Direct Arterial Blood Glucose Arterial Blood Ionized Calcium Urine WBC (Auto) Urine Creatinine Urine Total Protein Crossmatch 02/13/21 02/13/21 02/14/21 Unknown Unknown 07:11 WBC RBC Hgb Hct MCHC RDW Plt Count Lymph % (Auto) Graves % (Auto) Lymph # (Auto) Graves # (Auto) Seg Neutrophils % Seg Neuts % (Manual) Lymphocytes % (Manual) Seg Neutrophils # Seg Neutrophils # Man Lymphocytes # (Manual) Monocytes # (Manual) Basophils # (Manual) PT INR APTT Heparin Anti-Xa Level ABG pH POC ABG pCO2 POC ABG pO2 ABG Hemoglobin ABG Oxyhemoglobin ABG Sodium ABG Potassium ABG Chloride ABG Glucose Carboxyhemoglobin Sodium Potassium 5.2 H Chloride Carbon Dioxide BUN 29 H Creatinine 2.2 H Glucose 331 H POC Glucose 244 H Hemoglobin A1c 7.0 H Lactic Acid Calcium Direct Bilirubin Troponin T NT-Pro-B Natriuret Pep Albumin 3.1 L LDL Cholesterol Direct Arterial Blood Glucose Arterial Blood Ionized Calcium Urine WBC (Auto) Urine Creatinine Urine Total Protein Crossmatch 02/14/21 02/14/21 02/14/21 07:49 07:49 11:37 WBC 25.1 H RBC 2.99 L Hgb 8.5 L Hct 26.6 L MCHC RDW 16.3 H Plt Count Lymph % (Auto) Graves % (Auto) Lymph # (Auto) Graves # (Auto) Seg Neutrophils % Seg Neuts % (Manual) Lymphocytes % (Manual) Seg Neutrophils # Seg Neutrophils # Man Lymphocytes # (Manual) Monocytes # (Manual) Basophils # (Manual) PT INR APTT Heparin Anti-Xa Level ABG pH POC ABG pCO2 POC ABG pO2 ABG Hemoglobin ABG Oxyhemoglobin ABG Sodium ABG Potassium ABG Chloride ABG Glucose Carboxyhemoglobin Sodium Potassium Chloride Carbon Dioxide BUN 39 H Creatinine 2.1 H Glucose 253 H POC Glucose 229 H Hemoglobin A1c Lactic Acid Calcium Direct Bilirubin Troponin T NT-Pro-B Natriuret Pep Albumin LDL Cholesterol Direct Arterial Blood Glucose Arterial Blood Ionized Calcium Urine WBC (Auto) Urine Creatinine Urine Total Protein Crossmatch 02/14/21 02/14/21 02/15/21 17:04 21:25 05:50 WBC 14.4 H RBC 2.69 L Hgb 7.4 L Hct 24.0 L MCHC RDW 16.3 H Plt Count Lymph % (Auto) Graves % (Auto) Lymph # (Auto) Graves # (Auto) Seg Neutrophils % Seg Neuts % (Manual) Lymphocytes % (Manual) Seg Neutrophils # Seg Neutrophils # Man Lymphocytes # (Manual) Monocytes # (Manual) Basophils # (Manual) PT INR APTT Heparin Anti-Xa Level ABG pH POC ABG pCO2 POC ABG pO2 ABG Hemoglobin ABG Oxyhemoglobin ABG Sodium ABG Potassium ABG Chloride ABG Glucose Carboxyhemoglobin Sodium Potassium Chloride Carbon Dioxide BUN Creatinine Glucose POC Glucose 141 H 121 H Hemoglobin A1c Lactic Acid Calcium Direct Bilirubin Troponin T NT-Pro-B Natriuret Pep Albumin LDL Cholesterol Direct Arterial Blood Glucose Arterial Blood Ionized Calcium Urine WBC (Auto) Urine Creatinine Urine Total Protein Crossmatch 02/15/21 02/15/21 02/15/21 05:50 07:35 09:09 WBC RBC Hgb Hct MCHC RDW Plt Count Lymph % (Auto) Graves % (Auto) Lymph # (Auto) Graves # (Auto) Seg Neutrophils % Seg Neuts % (Manual) Lymphocytes % (Manual) Seg Neutrophils # Seg Neutrophils # Man Lymphocytes # (Manual) Monocytes # (Manual) Basophils # (Manual) PT INR APTT Heparin Anti-Xa Level ABG pH 7.272 L POC ABG pCO2 53.9 H POC ABG pO2 78.7 L ABG Hemoglobin 8.8 L ABG Oxyhemoglobin 93.0 L ABG Sodium ABG Potassium ABG Chloride ABG Glucose 197 H Carboxyhemoglobin 1.8 H Sodium Potassium Chloride 107.1 H Carbon Dioxide BUN 44 H Creatinine 2.3 H Glucose 162 H POC Glucose 182 H Hemoglobin A1c Lactic Acid Calcium Direct Bilirubin Troponin T NT-Pro-B Natriuret Pep Albumin LDL Cholesterol Direct Arterial Blood Glucose 197 H Arterial Blood Ionized Calcium Urine WBC (Auto) Urine Creatinine Urine Total Protein Crossmatch 02/15/21 02/15/21 02/15/21 11:30 11:40 16:07 WBC RBC Hgb Hct MCHC RDW Plt Count Lymph % (Auto) Graves % (Auto) Lymph # (Auto) Graves # (Auto) Seg Neutrophils % Seg Neuts % (Manual) Lymphocytes % (Manual) Seg Neutrophils # Seg Neutrophils # Man Lymphocytes # (Manual) Monocytes # (Manual) Basophils # (Manual) PT INR APTT Heparin Anti-Xa Level ABG pH POC ABG pCO2 POC ABG pO2 ABG Hemoglobin ABG Oxyhemoglobin ABG Sodium ABG Potassium ABG Chloride ABG Glucose Carboxyhemoglobin Sodium Potassium Chloride Carbon Dioxide BUN Creatinine Glucose POC Glucose 160 H 142 H Hemoglobin A1c Lactic Acid Calcium Direct Bilirubin Troponin T NT-Pro-B Natriuret Pep Albumin LDL Cholesterol Direct Arterial Blood Glucose Arterial Blood Ionized Calcium Urine WBC (Auto) Urine Creatinine Urine Total Protein Crossmatch See Detail 02/15/21 02/16/21 02/16/21 21:52 08:09 11:51 WBC RBC Hgb Hct MCHC RDW Plt Count Lymph % (Auto) Graves % (Auto) Lymph # (Auto) Graves # (Auto) Seg Neutrophils % Seg Neuts % (Manual) Lymphocytes % (Manual) Seg Neutrophils # Seg Neutrophils # Man Lymphocytes # (Manual) Monocytes # (Manual) Basophils # (Manual) PT INR APTT Heparin Anti-Xa Level ABG pH POC ABG pCO2 POC ABG pO2 ABG Hemoglobin ABG Oxyhemoglobin ABG Sodium ABG Potassium ABG Chloride ABG Glucose Carboxyhemoglobin Sodium Potassium Chloride Carbon Dioxide BUN Creatinine Glucose POC Glucose 143 H 167 H 186 H Hemoglobin A1c Lactic Acid Calcium Direct Bilirubin Troponin T NT-Pro-B Natriuret Pep Albumin LDL Cholesterol Direct Arterial Blood Glucose Arterial Blood Ionized Calcium Urine WBC (Auto) Urine Creatinine Urine Total Protein Crossmatch 02/16/21 02/16/21 02/16/21 14:45 14:45 16:29 WBC 15.4 H RBC 3.11 L Hgb 9.1 L Hct 27.8 L MCHC RDW 15.9 H Plt Count Lymph % (Auto) 3.6 L Graves % (Auto) 9.0 H Lymph # (Auto) 0.6 L Graves # (Auto) 1.4 H Seg Neutrophils % 87.3 H Seg Neuts % (Manual) Lymphocytes % (Manual) Seg Neutrophils # 13.4 H Seg Neutrophils # Man Lymphocytes # (Manual) Monocytes # (Manual) Basophils # (Manual) PT INR APTT Heparin Anti-Xa Level ABG pH POC ABG pCO2 POC ABG pO2 ABG Hemoglobin ABG Oxyhemoglobin ABG Sodium ABG Potassium ABG Chloride ABG Glucose Carboxyhemoglobin Sodium Potassium Chloride Carbon Dioxide BUN 53 H Creatinine 2.5 H Glucose 201 H POC Glucose 180 H Hemoglobin A1c Lactic Acid Calcium Direct Bilirubin Troponin T NT-Pro-B Natriuret Pep Albumin LDL Cholesterol Direct Arterial Blood Glucose Arterial Blood Ionized Calcium Urine WBC (Auto) Urine Creatinine Urine Total Protein Crossmatch 02/16/21 02/17/21 02/17/21 21:33 05:38 05:38 WBC 13.4 H RBC 2.91 L Hgb 8.4 L Hct 25.7 L MCHC RDW 15.8 H Plt Count Lymph % (Auto) Graves % (Auto) Lymph # (Auto) Graves # (Auto) Seg Neutrophils % Seg Neuts % (Manual) Lymphocytes % (Manual) Seg Neutrophils # Seg Neutrophils # Man Lymphocytes # (Manual) Monocytes # (Manual) Basophils # (Manual) PT INR APTT Heparin Anti-Xa Level ABG pH POC ABG pCO2 POC ABG pO2 ABG Hemoglobin ABG Oxyhemoglobin ABG Sodium ABG Potassium ABG Chloride ABG Glucose Carboxyhemoglobin Sodium 146 H Potassium Chloride 108.3 H Carbon Dioxide BUN 55 H Creatinine 2.5 H Glucose 169 H POC Glucose 164 H Hemoglobin A1c Lactic Acid Calcium Direct Bilirubin Troponin T NT-Pro-B Natriuret Pep Albumin LDL Cholesterol Direct Arterial Blood Glucose Arterial Blood Ionized Calcium Urine WBC (Auto) Urine Creatinine Urine Total Protein Crossmatch 02/17/21 02/17/21 02/17/21 07:28 12:12 15:38 WBC RBC Hgb Hct MCHC RDW Plt Count Lymph % (Auto) Graves % (Auto) Lymph # (Auto) Graves # (Auto) Seg Neutrophils % Seg Neuts % (Manual) Lymphocytes % (Manual) Seg Neutrophils # Seg Neutrophils # Man Lymphocytes # (Manual) Monocytes # (Manual) Basophils # (Manual) PT INR APTT Heparin Anti-Xa Level ABG pH POC ABG pCO2 POC ABG pO2 ABG Hemoglobin ABG Oxyhemoglobin ABG Sodium ABG Potassium ABG Chloride ABG Glucose Carboxyhemoglobin Sodium Potassium Chloride Carbon Dioxide BUN Creatinine Glucose POC Glucose 142 H 156 H 161 H Hemoglobin A1c Lactic Acid Calcium Direct Bilirubin Troponin T NT-Pro-B Natriuret Pep Albumin LDL Cholesterol Direct Arterial Blood Glucose Arterial Blood Ionized Calcium Urine WBC (Auto) Urine Creatinine Urine Total Protein Crossmatch 02/17/21 02/18/21 02/18/21 21:42 07:10 07:10 WBC RBC 2.92 L Hgb 8.6 L Hct 26.0 L MCHC RDW 15.8 H Plt Count Lymph % (Auto) 5.8 L Graves % (Auto) Lymph # (Auto) 0.5 L Graves # (Auto) Seg Neutrophils % 86.6 H Seg Neuts % (Manual) Lymphocytes % (Manual) Seg Neutrophils # 8.0 H Seg Neutrophils # Man Lymphocytes # (Manual) Monocytes # (Manual) Basophils # (Manual) PT INR APTT Heparin Anti-Xa Level ABG pH POC ABG pCO2 POC ABG pO2 ABG Hemoglobin ABG Oxyhemoglobin ABG Sodium ABG Potassium ABG Chloride ABG Glucose Carboxyhemoglobin Sodium 150 H Potassium Chloride 110.3 H Carbon Dioxide BUN 63 H Creatinine 2.5 H Glucose 168 H POC Glucose 131 H Hemoglobin A1c Lactic Acid Calcium Direct Bilirubin Troponin T 0.057 H NT-Pro-B Natriuret Pep Albumin LDL Cholesterol Direct Arterial Blood Glucose Arterial Blood Ionized Calcium Urine WBC (Auto) Urine Creatinine Urine Total Protein Crossmatch 02/18/21 02/18/21 02/18/21 08:28 11:51 17:05 WBC RBC Hgb Hct MCHC RDW Plt Count Lymph % (Auto) Graves % (Auto) Lymph # (Auto) Graves # (Auto) Seg Neutrophils % Seg Neuts % (Manual) Lymphocytes % (Manual) Seg Neutrophils # Seg Neutrophils # Man Lymphocytes # (Manual) Monocytes # (Manual) Basophils # (Manual) PT INR APTT Heparin Anti-Xa Level ABG pH POC ABG pCO2 POC ABG pO2 ABG Hemoglobin ABG Oxyhemoglobin ABG Sodium ABG Potassium ABG Chloride ABG Glucose Carboxyhemoglobin Sodium Potassium Chloride Carbon Dioxide BUN Creatinine Glucose POC Glucose 150 H 167 H 144 H Hemoglobin A1c Lactic Acid Calcium Direct Bilirubin Troponin T NT-Pro-B Natriuret Pep Albumin LDL Cholesterol Direct Arterial Blood Glucose Arterial Blood Ionized Calcium Urine WBC (Auto) Urine Creatinine Urine Total Protein Crossmatch 02/18/21 02/19/21 02/19/21 21:47 05:20 07:52 WBC RBC Hgb Hct MCHC RDW Plt Count Lymph % (Auto) Graves % (Auto) Lymph # (Auto) Graves # (Auto) Seg Neutrophils % Seg Neuts % (Manual) Lymphocytes % (Manual) Seg Neutrophils # Seg Neutrophils # Man Lymphocytes # (Manual) Monocytes # (Manual) Basophils # (Manual) PT INR APTT Heparin Anti-Xa Level ABG pH POC ABG pCO2 POC ABG pO2 ABG Hemoglobin ABG Oxyhemoglobin ABG Sodium ABG Potassium ABG Chloride ABG Glucose Carboxyhemoglobin Sodium 150 H Potassium Chloride 109.3 H Carbon Dioxide BUN 72 H Creatinine 2.8 H Glucose 222 H POC Glucose 155 H 221 H Hemoglobin A1c Lactic Acid Calcium Direct Bilirubin Troponin T NT-Pro-B Natriuret Pep Albumin LDL Cholesterol Direct Arterial Blood Glucose Arterial Blood Ionized Calcium Urine WBC (Auto) Urine Creatinine Urine Total Protein Crossmatch 02/19/21 02/19/21 02/19/21 11:36 12:08 17:48 WBC RBC Hgb Hct MCHC RDW Plt Count Lymph % (Auto) Graves % (Auto) Lymph # (Auto) Graves # (Auto) Seg Neutrophils % Seg Neuts % (Manual) Lymphocytes % (Manual) Seg Neutrophils # Seg Neutrophils # Man Lymphocytes # (Manual) Monocytes # (Manual) Basophils # (Manual) PT INR APTT Heparin Anti-Xa Level ABG pH POC ABG pCO2 POC ABG pO2 ABG Hemoglobin 10.3 L ABG Oxyhemoglobin ABG Sodium ABG Potassium ABG Chloride 111.0 H ABG Glucose 217 H Carboxyhemoglobin 0.3 L Sodium Potassium Chloride Carbon Dioxide BUN Creatinine Glucose POC Glucose 206 H 174 H Hemoglobin A1c Lactic Acid Calcium Direct Bilirubin Troponin T NT-Pro-B Natriuret Pep Albumin LDL Cholesterol Direct Arterial Blood Glucose 217 H Arterial Blood Ionized Calcium Urine WBC (Auto) Urine Creatinine Urine Total Protein Crossmatch 02/19/21 02/20/21 02/20/21 21:17 03:17 05:04 WBC RBC Hgb Hct MCHC RDW Plt Count Lymph % (Auto) Graves % (Auto) Lymph # (Auto) Graves # (Auto) Seg Neutrophils % Seg Neuts % (Manual) Lymphocytes % (Manual) Seg Neutrophils # Seg Neutrophils # Man Lymphocytes # (Manual) Monocytes # (Manual) Basophils # (Manual) PT INR APTT Heparin Anti-Xa Level ABG pH 7.480 H POC ABG pCO2 31.3 L POC ABG pO2 194.3 H ABG Hemoglobin 8.9 L ABG Oxyhemoglobin 98.9 H ABG Sodium ABG Potassium ABG Chloride 113.0 H ABG Glucose 118 H Carboxyhemoglobin 0.3 L Sodium Potassium Chloride Carbon Dioxide BUN Creatinine Glucose POC Glucose 161 H 108 H Hemoglobin A1c Lactic Acid Calcium Direct Bilirubin Troponin T NT-Pro-B Natriuret Pep Albumin LDL Cholesterol Direct Arterial Blood Glucose 118 H Arterial Blood Ionized Calcium Urine WBC (Auto) Urine Creatinine Urine Total Protein Crossmatch 02/20/21 02/20/21 02/20/21 05:45 05:45 11:34 WBC 15.4 H RBC 3.04 L Hgb 8.6 L Hct 26.9 L MCHC RDW 16.3 H Plt Count Lymph % (Auto) Graves % (Auto) Lymph # (Auto) Graves # (Auto) Seg Neutrophils % Seg Neuts % (Manual) Lymphocytes % (Manual) Seg Neutrophils # Seg Neutrophils # Man Lymphocytes # (Manual) Monocytes # (Manual) Basophils # (Manual) PT INR APTT Heparin Anti-Xa Level ABG pH POC ABG pCO2 POC ABG pO2 ABG Hemoglobin ABG Oxyhemoglobin ABG Sodium ABG Potassium ABG Chloride ABG Glucose Carboxyhemoglobin Sodium 148 H Potassium 3.4 L Chloride 111.2 H Carbon Dioxide BUN 75 H Creatinine 3.4 H Glucose 112 H POC Glucose 143 H Hemoglobin A1c Lactic Acid Calcium 8.2 L Direct Bilirubin Troponin T 0.075 H D NT-Pro-B Natriuret Pep Albumin LDL Cholesterol Direct Arterial Blood Glucose Arterial Blood Ionized Calcium Urine WBC (Auto) Urine Creatinine Urine Total Protein Crossmatch 02/20/21 02/20/21 02/20/21 17:34 20:45 23:21 WBC RBC Hgb Hct MCHC RDW Plt Count Lymph % (Auto) Graves % (Auto) Lymph # (Auto) Graves # (Auto) Seg Neutrophils % Seg Neuts % (Manual) Lymphocytes % (Manual) Seg Neutrophils # Seg Neutrophils # Man Lymphocytes # (Manual) Monocytes # (Manual) Basophils # (Manual) PT INR APTT Heparin Anti-Xa Level 1.36 H ABG pH POC ABG pCO2 POC ABG pO2 ABG Hemoglobin ABG Oxyhemoglobin ABG Sodium ABG Potassium ABG Chloride ABG Glucose Carboxyhemoglobin Sodium Potassium Chloride Carbon Dioxide BUN Creatinine Glucose POC Glucose 168 H 157 H Hemoglobin A1c Lactic Acid Calcium Direct Bilirubin Troponin T NT-Pro-B Natriuret Pep Albumin LDL Cholesterol Direct Arterial Blood Glucose Arterial Blood Ionized Calcium Urine WBC (Auto) Urine Creatinine Urine Total Protein Crossmatch 02/20/21 02/20/21 02/21/21 Unknown Unknown 02:53 WBC RBC Hgb 8.6 L Hct 27.1 L MCHC RDW Plt Count Lymph % (Auto) Graves % (Auto) Lymph # (Auto) Graves # (Auto) Seg Neutrophils % Seg Neuts % (Manual) Lymphocytes % (Manual) Seg Neutrophils # Seg Neutrophils # Man Lymphocytes # (Manual) Monocytes # (Manual) Basophils # (Manual) PT 19.5 H INR 1.60 H APTT Heparin Anti-Xa Level ABG pH POC ABG pCO2 POC ABG pO2 73.5 L ABG Hemoglobin 8.7 L ABG Oxyhemoglobin 93.7 L ABG Sodium ABG Potassium ABG Chloride 111.0 H ABG Glucose 195 H Carboxyhemoglobin Sodium Potassium Chloride Carbon Dioxide BUN Creatinine Glucose POC Glucose Hemoglobin A1c Lactic Acid Calcium Direct Bilirubin Troponin T NT-Pro-B Natriuret Pep Albumin LDL Cholesterol Direct Arterial Blood Glucose 195 H Arterial Blood Ionized Calcium Urine WBC (Auto) Urine Creatinine Urine Total Protein Crossmatch 02/21/21 02/21/21 02/21/21 05:06 05:58 06:10 WBC 12.8 H RBC 2.91 L Hgb 8.2 L Hct 25.7 L MCHC RDW 16.3 H Plt Count Lymph % (Auto) 9.2 L Graves % (Auto) 7.9 H Lymph # (Auto) Graves # (Auto) 1.0 H Seg Neutrophils % 80.1 H Seg Neuts % (Manual) Lymphocytes % (Manual) Seg Neutrophils # 10.2 H Seg Neutrophils # Man Lymphocytes # (Manual) Monocytes # (Manual) Basophils # (Manual) PT INR APTT Heparin Anti-Xa Level ABG pH POC ABG pCO2 POC ABG pO2 ABG Hemoglobin ABG Oxyhemoglobin ABG Sodium ABG Potassium ABG Chloride ABG Glucose Carboxyhemoglobin Sodium 147 H Potassium Chloride 108.4 H Carbon Dioxide BUN 80 H Creatinine 3.2 H Glucose 220 H POC Glucose 202 H Hemoglobin A1c Lactic Acid Calcium Direct Bilirubin Troponin T 0.086 H NT-Pro-B Natriuret Pep Albumin LDL Cholesterol Direct Arterial Blood Glucose Arterial Blood Ionized Calcium Urine WBC (Auto) Urine Creatinine Urine Total Protein Crossmatch 02/21/21 02/21/21 02/21/21 06:10 11:52 17:49 WBC RBC Hgb Hct MCHC RDW Plt Count Lymph % (Auto) Graves % (Auto) Lymph # (Auto) Graves # (Auto) Seg Neutrophils % Seg Neuts % (Manual) Lymphocytes % (Manual) Seg Neutrophils # Seg Neutrophils # Man Lymphocytes # (Manual) Monocytes # (Manual) Basophils # (Manual) PT INR APTT Heparin Anti-Xa Level 1.07 H ABG pH POC ABG pCO2 POC ABG pO2 ABG Hemoglobin ABG Oxyhemoglobin ABG Sodium ABG Potassium ABG Chloride ABG Glucose Carboxyhemoglobin Sodium Potassium Chloride Carbon Dioxide BUN Creatinine Glucose POC Glucose 240 H 243 H Hemoglobin A1c Lactic Acid Calcium Direct Bilirubin Troponin T NT-Pro-B Natriuret Pep Albumin LDL Cholesterol Direct Arterial Blood Glucose Arterial Blood Ionized Calcium Urine WBC (Auto) Urine Creatinine Urine Total Protein Crossmatch 02/21/21 02/22/21 02/22/21 23:11 03:11 04:00 WBC RBC Hgb Hct MCHC RDW Plt Count Lymph % (Auto) Graves % (Auto) Lymph # (Auto) Graves # (Auto) Seg Neutrophils % Seg Neuts % (Manual) Lymphocytes % (Manual) Seg Neutrophils # Seg Neutrophils # Man Lymphocytes # (Manual) Monocytes # (Manual) Basophils # (Manual) PT INR APTT Heparin Anti-Xa Level ABG pH POC ABG pCO2 POC ABG pO2 80.7 L ABG Hemoglobin 9.7 L ABG Oxyhemoglobin ABG Sodium ABG Potassium ABG Chloride ABG Glucose 315 H Carboxyhemoglobin Sodium Potassium Chloride Carbon Dioxide BUN 83 H Creatinine 3.3 H Glucose 317 H POC Glucose 264 H Hemoglobin A1c Lactic Acid Calcium Direct Bilirubin Troponin T 0.064 H D NT-Pro-B Natriuret Pep Albumin LDL Cholesterol Direct Arterial Blood Glucose 315 H Arterial Blood Ionized Calcium 4.5 L Urine WBC (Auto) Urine Creatinine Urine Total Protein Crossmatch 02/22/21 02/22/21 02/22/21 04:00 05:15 11:12 WBC 15.8 H RBC 3.16 L Hgb 9.0 L Hct 28.4 L MCHC RDW 16.7 H Plt Count Lymph % (Auto) 7.1 L Graves % (Auto) Lymph # (Auto) 1.1 L Graves # (Auto) 1.0 H Seg Neutrophils % 84.7 H Seg Neuts % (Manual) Lymphocytes % (Manual) Seg Neutrophils # 13.4 H Seg Neutrophils # Man Lymphocytes # (Manual) Monocytes # (Manual) Basophils # (Manual) PT INR APTT Heparin Anti-Xa Level ABG pH POC ABG pCO2 POC ABG pO2 ABG Hemoglobin ABG Oxyhemoglobin ABG Sodium ABG Potassium ABG Chloride ABG Glucose Carboxyhemoglobin Sodium Potassium Chloride Carbon Dioxide BUN Creatinine Glucose POC Glucose 298 H 289 H Hemoglobin A1c Lactic Acid Calcium Direct Bilirubin Troponin T NT-Pro-B Natriuret Pep Albumin LDL Cholesterol Direct Arterial Blood Glucose Arterial Blood Ionized Calcium Urine WBC (Auto) Urine Creatinine Urine Total Protein Crossmatch 02/22/21 02/22/21 02/23/21 18:25 23:28 04:00 WBC RBC Hgb Hct MCHC RDW Plt Count Lymph % (Auto) Graves % (Auto) Lymph # (Auto) Graves # (Auto) Seg Neutrophils % Seg Neuts % (Manual) Lymphocytes % (Manual) Seg Neutrophils # Seg Neutrophils # Man Lymphocytes # (Manual) Monocytes # (Manual) Basophils # (Manual) PT INR APTT Heparin Anti-Xa Level ABG pH POC ABG pCO2 POC ABG pO2 ABG Hemoglobin ABG Oxyhemoglobin ABG Sodium ABG Potassium ABG Chloride ABG Glucose Carboxyhemoglobin Sodium Potassium Chloride Carbon Dioxide BUN 94 H Creatinine 3.6 H Glucose 311 H POC Glucose 354 H 325 H Hemoglobin A1c Lactic Acid Calcium 7.3 L Direct Bilirubin Troponin T NT-Pro-B Natriuret Pep Albumin LDL Cholesterol Direct Arterial Blood Glucose Arterial Blood Ionized Calcium Urine WBC (Auto) Urine Creatinine Urine Total Protein Crossmatch 02/23/21 02/23/21 02/23/21 05:18 09:20 Unknown WBC RBC Hgb Hct MCHC RDW Plt Count Lymph % (Auto) Graves % (Auto) Lymph # (Auto) Graves # (Auto) Seg Neutrophils % Seg Neuts % (Manual) Lymphocytes % (Manual) Seg Neutrophils # Seg Neutrophils # Man Lymphocytes # (Manual) Monocytes # (Manual) Basophils # (Manual) PT INR APTT Heparin Anti-Xa Level ABG pH 7.289 L POC ABG pCO2 POC ABG pO2 75.2 L ABG Hemoglobin 8.2 L ABG Oxyhemoglobin 93.5 L ABG Sodium 131.1 L ABG Potassium ABG Chloride ABG Glucose 316 H Carboxyhemoglobin Sodium Potassium Chloride Carbon Dioxide BUN Creatinine Glucose POC Glucose 317 H Hemoglobin A1c Lactic Acid Calcium Direct Bilirubin Troponin T NT-Pro-B Natriuret Pep Albumin LDL Cholesterol Direct Arterial Blood Glucose 316 H Arterial Blood Ionized Calcium 4.2 L Urine WBC (Auto) Urine Creatinine 161.0 H Urine Total Protein 111 H Crossmatch 02/23/21 Unknown WBC RBC Hgb Hct MCHC RDW Plt Count Lymph % (Auto) Graves % (Auto) Lymph # (Auto) Graves # (Auto) Seg Neutrophils % Seg Neuts % (Manual) Lymphocytes % (Manual) Seg Neutrophils # Seg Neutrophils # Man Lymphocytes # (Manual) Monocytes # (Manual) Basophils # (Manual) PT INR APTT Heparin Anti-Xa Level ABG pH POC ABG pCO2 POC ABG pO2 ABG Hemoglobin ABG Oxyhemoglobin ABG Sodium ABG Potassium ABG Chloride ABG Glucose Carboxyhemoglobin Sodium Potassium Chloride Carbon Dioxide BUN Creatinine Glucose POC Glucose Hemoglobin A1c Lactic Acid Calcium Direct Bilirubin Troponin T NT-Pro-B Natriuret Pep Albumin LDL Cholesterol Direct Arterial Blood Glucose Arterial Blood Ionized Calcium Urine WBC (Auto) Urine Creatinine 161.0 H Urine Total Protein Crossmatch
[2021-02-23 11:04] LABS: Calcium 7.3 mg/dL (8.4-10.2)
[2021-02-23] MEDS ORDERED: SODIUM CHLORIDE 0.9% 500 ML IVPB IV PRN (11:25)
[2021-02-23] MEDS: NORepinephrine/NS 8 MG-250 ML 8 MG/250 ML INFUS..BTL IV SCH ×3 (11:49→20:32)
--- NOTE | 2021-02-23 12:36 | Progress Note ---
Assessment and Plan 1. Acute kidney injury: Vasomotor ANGELA superimposed on CKD in the setting of Cardiac arrest/ hypotension. Renal US negative for hydro. Urine studies ordered. Monitor renal function. Creatinine level increasing. UOP is low. Avoid nephrotoxic agents. Meds dosage based on GFR. 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 Patient require hemodialysis due to significant decline in the GFR, associated hyperkalemia, metabolic acidosis and volume overload. D/w her (02/23), explained the indications, benefits, risks and alternatives involved in hemodialysis. He voiced understanding and gave verbal consent for hemodialysis. At the time of eval pt's BP was low, about to start 2nd pressor. Hold off HD today and plan for HD tomorrow. D/w her . 2. FEN: Hypernatremia, improved, monitor. Monitor lytes and volume status. 3. S/p cardiac arrest: 02/13 echocardiogram showed LVEF 20 to 25%. Followed by Cardiology. 4. Acute HFeEF: Followed by Cardiology. Was on Dobutamine drip. 5. Acute respiratory failure: S/p mechanical ventilation s/p self extubation. Re-intubated 02/19. Followed by Pulmonary. 6. Elevated troponin: S/p cardiac arrest. Followed by Cards. 7. Acute metabolic encephalopathy: Monitor. 8. Shock: On Levophed. Monitor Blood pressure. 9. Bilateral pleural effusions: Diuretics when BP is better. 10. Sepsis, POA: Follow culture. Monitor. 11. H/o Breast CA. 12. DM: SSI, long acting insulin (titrate as needed). Subjective: Patient was seen and examined at the bedside. Examination: General appearance: obese, well-developed, appears stated age, intubated on vent HEENT: ATNC, Pupils equal Neck: trachea midline Respiratory: Coarse breath sounds Heart: regular, S1S2, no murmur Abdomen: soft, normoactive bowel sounds, not tender Integumentary: LE stasis changes Neurologic: sedated Ext: trace LE edema : asencio catheter Hemodialysis access: L IJ temp catheter Subjective Date of service: 02/23/21 Principal diagnosis: Pulmonary Edema Objective - Vital Signs Vital signs: Vital Signs - 12hr 02/23/21 02/23/21 02/23/21 00:45 01:00 01:15 Temperature Pulse Rate 101 H 106 H 98 H Pulse Rate [ From Monitor] Pulse Rate [Pre -Procedure] Respiratory 18 17 18 Rate Respiratory Rate [Pre- Procedure] Blood Pressure 122/48 132/49 107/44 Blood Pressure [Pre-Procedure] O2 Sat by Pulse 92 89 94 Oximetry O2 Sat by Pulse Oximetry [Pre- Procedure] 02/23/21 02/23/21 02/23/21 01:30 01:45 02:00 Temperature Pulse Rate 95 H 92 H 91 H Pulse Rate [ From Monitor] Pulse Rate [Pre -Procedure] Respiratory 18 19 18 Rate Respiratory Rate [Pre- Procedure] Blood Pressure 94/37 98/38 91/36 Blood Pressure [Pre-Procedure] O2 Sat by Pulse 93 93 Oximetry O2 Sat by Pulse Oximetry [Pre- Procedure] 02/23/21 02/23/21 02/23/21 02:15 02:30 02:46 Temperature Pulse Rate 90 89 90 Pulse Rate [ From Monitor] Pulse Rate [Pre -Procedure] Respiratory 18 18 13 Rate Respiratory Rate [Pre- Procedure] Blood Pressure 86/36 91/36 102/45 Blood Pressure [Pre-Procedure] O2 Sat by Pulse 93 93 86 Oximetry O2 Sat by Pulse Oximetry [Pre- Procedure] 02/23/21 02/23/21 02/23/21 03:00 03:15 03:24 Temperature 98.9 F Pulse Rate 88 88 Pulse Rate [ From Monitor] Pulse Rate [Pre -Procedure] Respiratory 18 18 Rate Respiratory Rate [Pre- Procedure] Blood Pressure 81/35 93/39 Blood Pressure [Pre-Procedure] O2 Sat by Pulse 92 92 Oximetry O2 Sat by Pulse Oximetry [Pre- Procedure] 02/23/21 02/23/21 02/23/21 03:30 03:45 03:50 Temperature Pulse Rate 88 88 87 Pulse Rate [ From Monitor] Pulse Rate [Pre -Procedure] Respiratory 18 18 Rate Respiratory Rate [Pre- Procedure] Blood Pressure 94/37 95/37 95/37 Blood Pressure [Pre-Procedure] O2 Sat by Pulse 93 93 94 Oximetry O2 Sat by Pulse Oximetry [Pre- Procedure] 02/23/21 02/23/21 02/23/21 04:00 04:15 04:30 Temperature Pulse Rate 87 87 87 Pulse Rate [ 87 From Monitor] Pulse Rate [Pre -Procedure] Respiratory 18 18 18 Rate Respiratory Rate [Pre- Procedure] Blood Pressure 96/39 104/38 99/40 Blood Pressure [Pre-Procedure] O2 Sat by Pulse 94 94 94 Oximetry O2 Sat by Pulse Oximetry [Pre- Procedure] 02/23/21 02/23/21 02/23/21 04:45 05:00 05:15 Temperature Pulse Rate 87 107 H 88 Pulse Rate [ From Monitor] Pulse Rate [Pre -Procedure] Respiratory 18 18 18 Rate Respiratory Rate [Pre- Procedure] Blood Pressure 93/37 100/40 93/36 Blood Pressure [Pre-Procedure] O2 Sat by Pulse 94 95 94 Oximetry O2 Sat by Pulse Oximetry [Pre- Procedure] 02/23/21 02/23/21 02/23/21 05:30 05:45 06:00 Temperature Pulse Rate 88 87 87 Pulse Rate [ From Monitor] Pulse Rate [Pre -Procedure] Respiratory 18 18 18 Rate Respiratory Rate [Pre- Procedure] Blood Pressure 92/37 95/39 94/37 Blood Pressure [Pre-Procedure] O2 Sat by Pulse 94 93 Oximetry O2 Sat by Pulse Oximetry [Pre- Procedure] 02/23/21 02/23/21 02/23/21 06:15 06:30 06:45 Temperature Pulse Rate 87 87 79 Pulse Rate [ From Monitor] Pulse Rate [Pre -Procedure] Respiratory 18 18 18 Rate Respiratory Rate [Pre- Procedure] Blood Pressure 99/37 91/36 94/36 Blood Pressure [Pre-Procedure] O2 Sat by Pulse 94 94 94 Oximetry O2 Sat by Pulse Oximetry [Pre- Procedure] 02/23/21 02/23/21 02/23/21 07:00 07:15 07:29 Temperature 100.6 F H Pulse Rate 78 79 Pulse Rate [ From Monitor] Pulse Rate [Pre -Procedure] Respiratory 18 18 Rate Respiratory Rate [Pre- Procedure] Blood Pressure 98/36 98/34 Blood Pressure [Pre-Procedure] O2 Sat by Pulse 94 Oximetry O2 Sat by Pulse Oximetry [Pre- Procedure] 02/23/21 02/23/21 02/23/21 07:30 07:45 08:00 Temperature Pulse Rate 79 78 81 Pulse Rate [ 85 From Monitor] Pulse Rate [Pre -Procedure] Respiratory 18 18 18 Rate Respiratory Rate [Pre- Procedure] Blood Pressure 96/35 92/36 94/36 Blood Pressure [Pre-Procedure] O2 Sat by Pulse 93 94 93 Oximetry O2 Sat by Pulse Oximetry [Pre- Procedure] 02/23/21 02/23/21 02/23/21 08:15 08:23 08:30 Temperature Pulse Rate 80 80 81 Pulse Rate [ From Monitor] Pulse Rate [Pre -Procedure] Respiratory 18 18 Rate Respiratory Rate [Pre- Procedure] Blood Pressure 98/35 94/54 94/34 Blood Pressure [Pre-Procedure] O2 Sat by Pulse 94 94 94 Oximetry O2 Sat by Pulse Oximetry [Pre- Procedure] 02/23/21 02/23/21 02/23/21 08:45 09:00 09:15 Temperature Pulse Rate 80 88 87 Pulse Rate [ From Monitor] Pulse Rate [Pre -Procedure] Respiratory 18 18 18 Rate Respiratory Rate [Pre- Procedure] Blood Pressure 99/36 93/37 101/37 Blood Pressure [Pre-Procedure] O2 Sat by Pulse 92 94 99 Oximetry O2 Sat by Pulse Oximetry [Pre- Procedure] 02/23/21 02/23/21 02/23/21 09:20 09:30 09:45 Temperature Pulse Rate 113 H 87 86 Pulse Rate [ From Monitor] Pulse Rate [Pre -Procedure] Respiratory 18 18 Rate Respiratory Rate [Pre- Procedure] Blood Pressure 171/54 97/40 85/38 Blood Pressure [Pre-Procedure] O2 Sat by Pulse 94 94 95 Oximetry O2 Sat by Pulse Oximetry [Pre- Procedure] 02/23/21 02/23/21 02/23/21 10:00 10:16 10:23 Temperature Pulse Rate 86 106 H Pulse Rate [ From Monitor] Pulse Rate [Pre 112 H -Procedure] Respiratory 20 20 Rate Respiratory 20 Rate [Pre- Procedure] Blood Pressure 113/43 113/43 Blood Pressure 113/43 [Pre-Procedure] O2 Sat by Pulse 95 97 Oximetry O2 Sat by Pulse 90 Oximetry [Pre- Procedure] 02/23/21 02/23/21 02/23/21 10:30 10:46 11:00 Temperature Pulse Rate 113 H 116 H 94 H Pulse Rate [ From Monitor] Pulse Rate [Pre -Procedure] Respiratory 20 20 20 Rate Respiratory Rate [Pre- Procedure] Blood Pressure 171/51 171/51 143/52 Blood Pressure [Pre-Procedure] O2 Sat by Pulse 90 89 Oximetry O2 Sat by Pulse Oximetry [Pre- Procedure] 02/23/21 02/23/21 11:16 11:39 Temperature Pulse Rate 96 H 93 H Pulse Rate [ From Monitor] Pulse Rate [Pre -Procedure] Respiratory 20 Rate Respiratory Rate [Pre- Procedure] Blood Pressure 143/52 144/50 Blood Pressure [Pre-Procedure] O2 Sat by Pulse 86 92 Oximetry O2 Sat by Pulse Oximetry [Pre- Procedure] - Lab 02/22/21 04:00 02/23/21 Unknown Most recent lab results ABG pH 7.289 (7.320-7.450) L 02/23/21 09:20 ABG O2 Saturation 94.5 (0-100) 02/23/21 09:20 Calcium 7.3 mg/dL (8.4-10.2) L 02/23/21 Unknown Magnesium 2.30 mg/dL (1.7-2.3) 02/18/21 07:10 Urine Creatinine 161.0 mg/dL (0.1-20.0) H 02/23/21 Unknown Urine Creatinine 161.0 mg/dL (0.1-20.0) H 02/23/21 Unknown Urine Sodium 33 mmol/L 02/23/21 Unknown Urine Sodium 33 mmol/L 02/23/21 Unknown Urine Total Protein 111 mg/dL (5-11.8) H 02/23/21 Unknown Medications & Allergies - Medications Allergies/Adverse Reactions: Allergies Penicillins Allergy (Verified 02/12/21 17:19) Unknown contrast Allergy (Uncoded 02/14/21 18:30) Rash Home Medications: Home Medications Medication Instructions Recorded Confirmed Last Taken Type AtorvaSTATin [Lipitor] 40 mg PO QHS 02/12/21 02/12/21 Unknown History Metoprolol Succinate [Kapspargo 25 mg PO QDAY 02/12/21 02/12/21 Unknown History Sprinkle] Spironolactone [Aldactone] 25 mg PO QDAY 02/12/21 02/12/21 Unknown History amLODIPine [Norvasc] 5 mg PO DAILY 02/12/21 02/12/21 Unknown History glipiZIDE [Glucotrol] 5 mg PO BID 02/12/21 02/12/21 Unknown History metFORMIN [Glucophage] 500 mg PO BID 02/12/21 02/19/21 02/12/21 History Aspirin [Adult Aspirin] 1 tab PO QDAY 02/13/21 02/19/21 02/13/21 History Biotin [Biotin 5,000 rapdis] 5,000 mcg PO QDAY 02/13/21 02/19/21 02/12/21 History NovoLOG Flexpen 2 1000units SC ACHS 02/13/21 02/19/21 02/12/21 History Active Medications: Generic Name Dose Route Start Last Admin Trade Name Freq PRN Reason Stop Dose Admin Acetaminophen 650 mg 02/12/21 20:45 02/20/21 16:04 Acetaminophen 325 Mg Tab PO 650 mg Q4H PRN Administration Pain MILD(1-3)/Fever >100.5/CHAMBERS Lipase/Protease/Amylase 1 each 02/20/21 12:00 Lipase 10,500/Protease 25,000/Amylase 43,750 (Units) Dr Cap FEEDTUBE PRN PRN For Clogged Feeding Tube Aspirin 81 mg 02/17/21 10:00 02/23/21 09:45 Aspirin 81 Mg Tab Chew PO 81 mg QDAY AV Administration Atorvastatin Calcium 40 mg 02/12/21 22:00 02/22/21 21:28 Atorvastatin 40 Mg Tab PO 40 mg QHS AV Administration Dextrose 50 ml 02/13/21 11:30 Dextrose 50% In Water (25gm) 50 Ml Syringe IV Q30MIN PRN Hypoglycemia Protocol Famotidine 20 mg 02/23/21 10:00 02/23/21 09:46 Famotidine 20 Mg Tab PO 20 mg DAILY AV Administration Fentanyl 50 mcg 02/22/21 20:30 Fentanyl 100 Mcg/2 Ml Inj IV Q10MIN PRN ANALGESIA Heparin Sodium (Porcine) 3,900 unit 02/20/21 13:08 Heparin 10,000 Units/10 Ml Vial 40 unit/kg (3900 unit) IV Q6H PRN Anti-Xa Assay < 0.1 units/ml Hydrophilic Ointment 1 applic 02/19/21 10:59 Lip Therapy Vaseline TP Q2HR PRN Dry Lips Propofol 1,000 mg in 100 mls @ 2.946 mls/hr 02/19/21 11:00 02/23/21 10:05 Diprivan 10 Mg/Ml IV 5 mcg/kg/min TITR AV 2.946 mls/hr Titration Protocol 5 MCG/KG/MIN Dobutamine HCl/Dextrose 500 mg in 250 mls @ 14.73 mls/hr 02/19/21 13:00 02/20/21 19:00 Dobutrex Drip 500mg/D5w 250ml IV 0 mcg/kg/min DIRECT AV 0 mls/hr Infusion Protocol 5 MCG/KG/MIN NORepinephrine/NS 8 MG-250 ML 8 mg in 250 mls @ 3.75 mls/hr 02/19/21 13:00 02/23/21 11:49 Norepinephrine/Ns 8 Mg-250 Ml (Double Conc) IV 10 mcg/min TITRATE AV 18.75 mls/hr Administration Protocol 2 MCG/MIN Heparin Sodium/Sodium Chloride 25,000 unit in 500 mls @ 29 mls/hr 02/20/21 14:00 02/22/21 22:23 Heparin/ 0.45% Nacl-25,000 Unit/500 Ml IV 1,050 units/hr TITR AV 21 mls/hr Titration Protocol 1,450 UNITS/HR Fentanyl Citrate 2,000 mcg in 100 mls @ 4.91 mls/hr 02/22/21 20:30 02/23/21 00:34 Fentanyl Drip Premix IV 1 mcg/kg/hr TITR AV 4.91 mls/hr Administration Protocol 1 MCG/KG/HR Insulin Glargine 15 units 02/23/21 08:00 02/23/21 08:57 Insulin Glargine 100 Units/Ml SUB-Q 15 units QAMDIAB AV Administration Insulin Human Lispro 0 unit 02/20/21 12:00 02/23/21 06:20 Insulin Lispro 100 Unit/Ml SUB-Q 6 unit Q6HR AV Administration Protocol Metoclopramide HCl 5 mg 02/12/21 20:56 Metoclopramide 10 Mg/2 Ml Inj IV Q6H PRN Nausea And Vomiting Multi-Ingred Cream/Lotion/Oil/Oint 1 applic 02/19/21 10:59 Mineral Oil/Petrolatum, White Ophth Oint 3.5 Gm OU Q4HR PRN Dry Eye(s) Ondansetron HCl 4 mg 02/12/21 20:45 Ondansetron 4 Mg/2 Ml Inj IV Q8H PRN Nausea And Vomiting Phenyleph/Shark Oil/Min Oil/Petrol 1 applic 02/15/21 12:52 Pe/Mo/Pet,Wh 10 Applic/28 Gm Tube NV Q6HR PRN Hemorrhoids Senna/Docusate Sodium 1 tab 02/19/21 22:00 02/23/21 09:46 Sennosides/Docusate Sodium 8.6/50 Mg Tab FEEDTUBE 1 tab BID AV Administration Simple Syrup 15 ml 02/20/21 12:00 Simple Syrup 15 Ml FEEDTUBE PRN PRN Hypoglycemia Simple Syrup 30 ml 02/20/21 12:00 Simple Syrup 15 Ml FEEDTUBE PRN PRN Hypoglycemia Sodium Bicarbonate 325 mg 02/20/21 12:00 Sodium Bicarbonate 325 Mg Tab FEEDTUBE PRN PRN For Clogged Feeding Tube Sodium Chloride 10 ml 02/12/21 22:00 02/23/21 09:46 Sodium Chloride 0.9% 10 Ml Flush Syringe IV 10 ml BID AV Administration Sodium Chloride 10 ml 02/12/21 20:45 Sodium Chloride 0.9% 10 Ml Flush Syringe IV PRN PRN LINE FLUSH Sodium Chloride 5 ml 02/23/21 11:25 Sodium Chloride 0.9% 500 Ml Ivpb IV PRN PRN ART LINE
--- NOTE | 2021-02-23 12:51 | Progress Note ---
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 LV is normal size. LV SF is moderate to severely decreased. Severe global hypokinesis of LV. RV SF is normal. Mild to moderate MR. RVSP is 11 mmHg. * GDMT as tolerated. Paroxysmal A. fib in setting of anemia * Anticoagulated on heparin drip * Currently controlled ventricular response, continue to monitor on telemetry NSTEMI suspect type II in setting of ANGELA * Troponins are elevated, subacute and nonspecific. Continue to trend CE's. * Central line will be placed today to facilitate initiation of hemodialysis. Further volume control will be managed per nephrology Prognosis remains poor. We will follow This patient was seen in conjunction with Dr Alejandro who agrees with this assessment and plan of care - Patient Problems (1) Acute renal failure Current Visit: Yes Status: Acute Qualifiers: Acute renal failure type: with acute tubular necrosis Qualified Code(s): N17.0 - Acute kidney failure with tubular necrosis (2) Non-ST elevated myocardial infarction (non-STEMI) Current Visit: Yes Status: Acute (3) Acute exacerbation of CHF (congestive heart failure) Current Visit: Yes Status: Acute Qualifiers: Heart failure type: systolic Qualified Code(s): I50.23 - Acute on chronic systolic (congestive) heart failure (4) Acute heart failure Current Visit: Yes Status: Acute Qualifiers: Heart failure type: systolic Qualified Code(s): I50.21 - Acute systolic (c ongestive) heart failure (5) Acute respiratory failure with hypoxia Current Visit: Yes Status: Acute (6) Bilateral pleural effusion Current Visit: Yes Status: Acute (7) Sepsis Current Visit: Yes Status: Acute Qualifiers: Severe sepsis shock status: with septic shock (8) HLD (hyperlipidemia) Current Visit: Yes Status: Chronic Qualifiers: Hyperlipidemia type: mixed hyperlipidemia Qualified Code(s): E78.2 - Mixed hyperlipidemia (9) T2DM (type 2 diabetes mellitus) Current Visit: Yes Status: Chronic Qualifiers: Diabetes mellitus terminal makeup operator insulin use: with jail use Subjective Date of service: 02/23/21 Principal diagnosis: Pulmonary Edema Interval history: Patient is intubated and sedated Telemetry reviewed A. fib 80s no events Objective Last Vital Signs Temp 100.6 F H 02/23/21 07:29 Pulse 93 H 02/23/21 11:39 Resp 20 02/23/21 11:16 BP 144/50 02/23/21 11:39 Pulse Ox 92 02/23/21 11:39 - Physical Examination General: Other (Intubated sedated) HEENT: Positive: Normocephaly, Mucus Membranes Moist Neck: Positive: neck supple, trachea midline. Negative: JVD/HJR Cardiac: Positive: irregularly irregular, S1/S2 Lungs: Positive: Ventilated Respirations Neuro: Positive: Other (Intubated sedated) Abdomen: Positive: Soft Skin: Negative: Rash Musculoskeletal: other (Intubated sedated) Extremities: Present: lower extr. pulses, +1 Edema, Other (chronic skin changes noted) - Labs and Meds Comprehensive Metabolic Panel 02/23/21 02/23/21 Range/Units 04:00 Unknown Sodium 137 135 L (137-145) mmol/L Potassium 4.8 4.9 (3.6-5.0) mmol/L Chloride 103.1 101.5 (98-107) mmol/L Carbon Dioxide 22 23 (22-30) mmol/L BUN 94 H 95 H (7-17) mg/dL Creatinine 3.6 H 3.6 H (0.6-1.2) mg/dL Glucose 311 H 324 H (65-100) mg/dL Calcium 7.3 L 7.3 L (8.4-10.2) mg/dL - Imaging and Cardiology EKG: report reviewed, image reviewed Echo: report reviewed (Echocardiogram reviewed (02/14/2021): LVEF is 20 to 25%. LV is normal size. LV SF is moderate to severely decreased. Severe global hypokinesis of LV. RV SF is normal. Mild to moderate MR. RVSP is 11 mmHg.), other (2018 - EF 45-50%, trace MR) - Telemetry EKG Rhythm: Atrial Fibrillation - EKG Sinus rhythms and dysrhythmias: sinus rhythm Repolarization changes or abnormalities: nonspecific abnormality, ST segment, and/or T wave
--- NOTE | 2021-02-23 14:02 | XRay Report ---
CHEST 1 VIEW 02/23/2021 1:33 PM INDICATION / CLINICAL INFORMATION: line placement. COMPARISON: One view of the chest from 02/21/2021 FINDINGS: The patient is rotated to the right. SUPPORT DEVICES: There has been interval placement of a left internal jugular vein Vas-Cath with the tip projecting over the cavoatrial junction. Otherwise unchanged. HEART / MEDIASTINUM: Stable. LUNGS / PLEURA: Bilateral pleural parenchymal opacities have improved. No pneumothorax. ADDITIONAL FINDINGS: No significant additional findings. IMPRESSION: 1. Improved aeration of the lungs. 2. Interval left internal jugular vein Vas-Cath placement, and expected position. 3. No other significant interval changes. Signer Name: Lauri Tony MD Signed: 02/23/2021 1:58 PM Workstation Name: [id number]
--- NOTE | 2021-02-23 14:28 | Progress Note ---
<LEANNETREMAYNE LisaEdenilson - Last Filed: 02/23/21 18:00> Assessment and Plan Assessment and plan: This is a 62-year-old female with COPD, CHF, HTN, GERD, breast cancer, arthritis HLD, type 2 diabetes mellitus admitted s/p cardiac arrest with acute exacerbation of congestive heart failure, acute hypoxic respiratory failure, sepsis, acute kidney injury and electrolyte imbalances Neuro Acute metabolic encephalopathy -Fall/aspiration precautions -Reorientation as needed -02/12 CT head shows no acute intracranial abnormality -Likely due to hypoxia and renal disease Anxiety -Xanax prn S/p GLF, per patient in early January -PT/OT consult CV S/p cardiac arrest -02/13 echocardiogram shows left ventricular function moderate to severely decreased, LVEF 20 to 25%, right ventricle systolic function normal, mitral valve annular calcification, thickened and calcified leaflets, mild to moderate mitral valve regurgitation, RVSP 11 mmHg, trace TR, large left pleural effusion with no pericardial effusion -Cardiology consulted, appreciate recommendations Cardiogenic shock -as needed Levophed -s/p dopamine -Blood pressure monitoring per protocol NSTEMI suspect type II in setting of ANGELA -02/12 troponin 0 0.058, 0.056, 0.069 -Patient received ACLS after PEA arrest -Cardiology consulted, appreciate recommendations Acute on Chronic Systolic heart failure -Presented with a BMP of [id number] -Cardiology consulted, appreciate recommendations -Per cardiology 03/2018 echocardiogram showed ejection fraction of 45 to 50%, trace MR, trace TR -02/13 echocardiogram shows left ventricular function moderate to severely decreased, LVEF 20 to 25%, right ventricle systolic function normal, mitral valve annular calcification, thickened and calcified leaflets, mild to moderate mitral valve regurgitation, RVSP 11 mmHg, trace TR, large left pleural effusion with no pericardial effusion -s/p IV lasix without adequate response s/p milrinone per cardiology Atrial fibrillation -initiated on heparin drip -Cardiology consulted Hypotension -Levophed, vasopressin as needed -Blood pressure monitoring per protocol Paroxysmal A. fib -Anticoagulated on heparin drip -Currently controlled ventricular response -Cardiology following h/o Hypertension -Hold home antihypertenisive medication in setting of vasopressor use Hyperlipidemia -Resume home statin Respiratory Acute respiratory failure -S/p mechanical ventilation s/p self extuabtion, weaned from BiPAP -Presently on high flow nasal cannula -Supplemental oxygen as needed -Pulmonary hygiene -SPO2 monitor per protocol Bilateral pleural effusions -evidenced on cxr -s/p lasix in ED -lasix IV, sprinolactone PO (currently on hold r/t hypotension) FEN/GI Acute kidney injury, progressed to HD, started on 02/23 -Nephrology consulted, appreciate recommendations -Presented with a BUN/creatinine of 1.7/20 which uptrended up to 3.6/95 -Strict urine output -Avoid nephrotoxic medications -Renally dose medications -Daily weights -HD per nephro NAD -strict I&O -asencio ID Sepsis -s/p abx therapy -Presented with hypoxia, tachycardia, hypotension, -02/12 bilateral x2 no growth to date -02/12 tracheal aspirate with moderate growth of usual respiratory manuela -02/12 urine culture with no growth after 48 hours -02/19 tracheal aspirate with Genie albicans Leukocytosis -s/p abx therapy -Trend CBC h/o Breast CA Endo DM -SSI, long acting insulin (titrate as needed) -Hbg A1C 7 -Acccuchecks q6 -Hypoglycemic protocol -TF Skin Bilateral lower extremity skin lacerations -WOCN consulted -Wound care per nursing The high probability of a clinically significant, sudden or life threatening deterioration of the [cardio/respiratory] system(s) required my full and direct attention, intervention and personal management. The aggregate critical care time was [35] minutes. This time is in addition to time spent performing reported procedures but includes the following: [x] Data Review and interpretation [x] Patient assessment and monitoring of vital signs [x] Documentation [x] Medication orders and management DVT/GI prophylaxis: PPI, SCDs to bilateral ultrasound in bed, heparin subcu Disposition: CCU Lines: CVL, asencio, vascath History Interval history: This is a 62-year-old female with COPD, CHF, HTN, GERD, breast cancer, arthritis HLD, type 2 diabetes mellitus who presented to the emergency department on 02/12 with complaints of severe shortness of breath and upon presentation patient assistance duration was 70% despite being on BiPAP and was electively intubated. After intubation patient had cardiac arrest with PEA and ACLS was initiated for approximately 5 minutes with achievement of ROSC. Patient later self extubated and was placed back on BiPAP. Work-up in the emergency department revealed leukocytosis, lactic acidosis, and CXR showed bilateral pleural effusions with pulmonary edema, elevated proBNP, elevated troponins. Patient was admitted to the hospital service s/p cardiac arrest, acute hypoxic respiratory failure, acute exacerbation of CHF and sepsis with consults to cardiology and [facility]. 02/13: Patient weaned to high flow nasal cannula, echocardiogram pending, Levophed titrated off, COVID-19 PCR negative 02/14: Patient was transferred to stepdown status, per cardiology patient received IV Lasix to help with pleural effusion seen on echocardiogram. Echocardiogram shows EF of 20-25%. Patient was started on Xanax to help with anxiety. Long- acting insulin increased due to persistent hyperglycemia 02/15: Patient placed back on BiPAP, started to have respiratory decompensation. Spoke with cardiology and pulmonology, will start milrinone, continue Lasix, low threshold for reintubation. 02/16: milrinone drip is running, continue 5: Patient seen and examined with at the bedside, patient continues to be very agitated, given sedation, low threshold for reintubation. Diuresis with Lasix. 02/17: Patient remains on continuous BiPAP and milrinone drip. She took off her BiPAP mask this morning which was immediately replaced by respiratory therapist. Patient remains lethargic and slightly restless. H&H remained stable, creatinine continue to trend up-consult nephrology, follow BMP. 02/18/21; patient on Bumex and milrinone drip. Also initiated on D5W at 30 mils per hour as patient unable to eat because she is on continuous BiPAP and sodium level 150 today, repeat BMP tomorrow. Poor prognosis 02/19/21: Patient intubated today and transferred to ICU. Continue to follow clinically, poor prognosis. 02/20/21: platient placed on heparin drip for atrial fib 02/21/21: remains intubated, on heparin drip for afib 02/22/21; discussed with at bedside, updated him with all details and discussed about code status. Patient does understand that patient has very poor prognosis. He will decide about CODE STATUS soon. Patient remains intubated, on heparin drip. Continue supportive care, and tube feeding diet. 02/23: Mallory placed, vascath placed and Nephro will initiate HD. Vasopressor added for persisent hypotension. Hospitalist Physical - Constitutional Vitals: Temp Pulse Resp BP Pulse Ox 100.6 F H 93 H 20 144/50 92 02/23/21 07:29 02/23/21 11:39 02/23/21 11:16 02/23/21 11:39 02/23/21 11:39 General appearance: Present: no acute distress, other (sedated on vent) - EENT Eyes: Present: PERRL - Neck Neck: Absent: masses or JVD, cervical LAD - Respiratory Respiratory effort: normal Respiratory: bilateral: diminished, rhonchi - Cardiovascular Rhythm: regular Heart Sounds: Present: S1 & S2. Absent: systolic murmur, diastolic murmur - Extremities Extremities: no ischemia, pulses intact, pulses symmetrical Extremity abnormal: edema Peripheral Pulses: within normal limits - Abdominal General gastrointestinal: soft, non-tender, non-distended, normal bowel sounds - Integumentary Integumentary: Present: dry, pale - Psychiatric Psychiatric: other (sedated) - Neurologic Neurologic: moves all extremities - Allied Health Allied health notes reviewed: nursing, RT, social work HEART Score - HEART Score EKG: Non-specific Age: > 65 Risk factors: 1-2 risk factors Troponin: Troponin T 0.064 ng/mL (0.00-0.029) H D 02/22/21 04:00 Troponin: < normal limit - Critical Actions Critical Actions: 4-6 pts:12-16.6% risk of adverse cardiac event. Should be admitted Results - Labs CBC & Chem 7: 02/22/21 04:00 02/23/21 Unknown Labs: Laboratory Last Values WBC 15.8 K/mm3 (4.5-11.0) H 02/22/21 04:00 RBC 3.16 M/mm3 (3.65-5.03) L 02/22/21 04:00 Hgb 9.0 gm/dl (10.1-14.3) L 02/22/21 04:00 Hct 28.4 % (30.3-42.9) L 02/22/21 04:00 MCV 90 fl (79-97) 02/22/21 04:00 MCH 29 pg (28-32) 02/22/21 04:00 MCHC 32 % (30-34) 02/22/21 04:00 RDW 16.7 % (13.2-15.2) H 02/22/21 04:00 Plt Count 295 K/mm3 (140-440) 02/22/21 04:00 Lymph % (Auto) 7.1 % (13.4-35.0) L 02/22/21 04:00 [place] % (Auto) 6.5 % (0.0-7.3) 02/22/21 04:00 Eos % (Auto) 1.3 % (0.0-4.3) 02/22/21 04:00 Baso % (Auto) 0.4 % (0.0-1.8) 02/22/21 04:00 Lymph # (Auto) 1.1 K/mm3 (1.2-5.4) L 02/22/21 04:00 [place] # (Auto) 1.0 K/mm3 (0.0-0.8) H 02/22/21 04:00 Eos # (Auto) 0.2 K/mm3 (0.0-0.4) 02/22/21 04:00 Baso # (Auto) 0.1 K/mm3 (0.0-0.1) 02/22/21 04:00 Add Manual Diff Complete 02/13/21 Unknown Total Counted 100 02/13/21 Unknown Seg Neutrophils % 84.7 % (40.0-70.0) H 02/22/21 04:00 Seg Neuts % (Manual) 98.0 % (40.0-70.0) H 02/13/21 Unknown Band Neutrophils % 2.0 % 02/13/21 Unknown Lymphocytes % (Manual) 0.5 % (13.4-35.0) L 02/12/21 14:25 Monocytes % (Manual) 6.0 % (0.0-7.3) 02/12/21 14:25 Basophils % (Manual) 0.5 % (0.0-1.8) 02/12/21 14:25 Metamyelocytes % 1.0 % 02/12/21 14:25 Myelocytes % 0.5 % 02/12/21 14:25 Nucleated RBC % Not Reportable 02/13/21 Unknown Seg Neutrophils # 13.4 K/mm3 (1.8-7.7) H 02/22/21 04:00 Seg Neutrophils # Man 24.3 K/mm3 (1.8-7.7) H 02/13/21 Unknown Band Neutrophils # 0.5 K/mm3 02/13/21 Unknown Lymphocytes # (Manual) 0.0 K/mm3 (1.2-5.4) L 02/13/21 Unknown Abs React Lymphs (Man) 0.0 K/mm3 02/13/21 Unknown Monocytes # (Manual) 0.0 K/mm3 (0.0-0.8) 02/13/21 Unknown Eosinophils # (Manual) 0.0 K/mm3 (0.0-0.4) 02/13/21 Unknown Basophils # (Manual) 0.0 K/mm3 (0.0-0.1) 02/13/21 Unknown Metamyelocytes # 0.0 K/mm3 02/13/21 Unknown Myelocytes # 0.0 K/mm3 02/13/21 Unknown Promyelocytes # 0.0 K/mm3 02/13/21 Unknown Blast Cells # 0.0 K/mm3 02/13/21 Unknown WBC Morphology Not Reportable 02/13/21 Unknown Hypersegmented Neuts Not Reportable 02/13/21 Unknown Hyposegmented Neuts Not Reportable 02/13/21 Unknown Hypogranular Neuts Not Reportable 02/13/21 Unknown Smudge Cells Not Reportable 02/13/21 Unknown Toxic Granulation Not Reportable 02/13/21 Unknown Toxic Vacuolation Not Reportable 02/13/21 Unknown Dohle Bodies Not Reportable 02/13/21 Unknown Pelger-Huet Anomaly Not Reportable 02/13/21 Unknown Dawn Rods Not Reportable 02/13/21 Unknown Platelet Estimate Consistent w auto 02/13/21 Unknown Clumped Platelets Not Reportable 02/13/21 Unknown Plt Clumps, EDTA Not Reportable 02/13/21 Unknown Large Platelets Not Reportable 02/13/21 Unknown Giant Platelets Not Reportable 02/13/21 Unknown Platelet Satelliting Not Reportable 02/13/21 Unknown Plt Morphology Comment Not Reportable 02/13/21 Unknown RBC Morphology Not Reportable 02/13/21 Unknown Dimorphic RBCs Not Reportable 02/13/21 Unknown Polychromasia Not Reportable 02/13/21 Unknown Hypochromasia Not Reportable 02/13/21 Unknown Poikilocytosis Not Reportable 02/13/21 Unknown Anisocytosis Not Reportable 02/13/21 Unknown Microcytosis Not Reportable 02/13/21 Unknown Macrocytosis Not Reportable 02/13/21 Unknown Spherocytes Not Reportable 02/13/21 Unknown Pappenheimer Bodies Not Reportable 02/13/21 Unknown Sickle Cells Not Reportable 02/13/21 Unknown Target Cells Not Reportable 02/13/21 Unknown Tear Drop Cells Not Reportable 02/13/21 Unknown Ovalocytes Few 02/13/21 Unknown Helmet Cells Not Reportable 02/13/21 Unknown Phipps-Pax Bodies Not Reportable 02/13/21 Unknown Gruetli Laager Rings Not Reportable 02/13/21 Unknown Yahaira Cells Not Reportable 02/13/21 Unknown Bite Cells Not Reportable 02/13/21 Unknown Crenated Cell Not Reportable 02/13/21 Unknown Elliptocytes Not Reportable 02/13/21 Unknown Acanthocytes (Spur) Not Reportable 02/13/21 Unknown Rouleaux Not Reportable 02/13/21 Unknown Hemoglobin C Crystals Not Reportable 02/13/21 Unknown Schistocytes Not Reportable 02/13/21 Unknown Malaria parasites Not Reportable 02/13/21 Unknown Mayo Bodies Not Reportable 02/13/21 Unknown Hem Pathologist Commnt No 02/13/21 Unknown PT 19.5 Sec. (12.2-14.9) H 02/20/21 Unknown INR 1.60 (0.87-1.13) H 02/20/21 Unknown APTT TNR 02/20/21 Unknown Heparin Anti-Xa Level 0.66 U.I./ml (0.3-0.7) 02/22/21 21:45 ABG pH 7.289 (7.320-7.450) L 02/23/21 09:20 POC ABG pCO2 45.6 mmHg (32.0-48.0) 02/23/21 09:20 POC ABG pO2 75.2 mmHg (83-108) L 02/23/21 09:20 POC ABG HCO3 21.4 02/23/21 09:20 ABG O2 Saturation 94.5 (0-100) 02/23/21 09:20 POC ABG Base Excess -4.9 02/23/21 09:20 ABG Hemoglobin 8.2 (12.0-17.5) L 02/23/21 09:20 ABG Oxyhemoglobin 93.5 (94-98) L 02/23/21 09:20 ABG Methemoglobin 0.3 (0.0-1.5) 02/23/21 09:20 ABG Sodium 131.1 mmol/L (136.0-145.0) L 02/23/21 09:20 ABG Potassium 4.5 mmol/L (3.40-4.50) 02/23/21 09:20 ABG Chloride 104.0 mmol/L (98-107) 02/23/21 09:20 ABG Glucose 316 mg/dL (65-95) H 02/23/21 09:20 ABG Lactate 2.74 (0.18-30.0) 02/12/21 16:56 Carboxyhemoglobin 0.8 (0.5-1.5) 02/23/21 09:20 FiO2 % 55.0 02/23/21 09:20 Sodium 135 mmol/L (137-145) L 02/23/21 Unknown Potassium 4.9 mmol/L (3.6-5.0) 02/23/21 Unknown Chloride 101.5 mmol/L (98-107) 02/23/21 Unknown Carbon Dioxide 23 mmol/L (22-30) 02/23/21 Unknown Anion Gap 15 mmol/L 02/23/21 Unknown BUN 95 mg/dL (7-17) H 02/23/21 Unknown Creatinine 3.6 mg/dL (0.6-1.2) H 02/23/21 Unknown Estimated GFR 13 ml/min 02/23/21 Unknown BUN/Creatinine Ratio 26 % 02/23/21 Unknown Glucose 324 mg/dL (65-100) H 02/23/21 Unknown POC Glucose 317 mg/dL (70-105) H 02/23/21 05:18 Hemoglobin A1c 7.0 % (4-6) H 02/13/21 Unknown Lactic Acid 0.80 mmol/L (0.7-2.0) 02/13/21 Unknown Calcium 7.3 mg/dL (8.4-10.2) L 02/23/21 Unknown Magnesium 2.30 mg/dL (1.7-2.3) 02/18/21 07:10 Total Bilirubin 0.30 mg/dL (0.1-1.2) 02/13/21 Unknown Direct Bilirubin 0.3 mg/dL (0-0.2) H 02/12/21 12:20 Indirect Bilirubin 0.3 mg/dL 02/12/21 12:20 AST 31 units/L (5-40) 02/13/21 Unknown ALT 18 units/L (7-56) 02/13/21 Unknown Alkaline Phosphatase 55 units/L (35-129) 02/13/21 Unknown Ammonia 39.0 umol/L (25-60) 02/12/21 12:20 Troponin T 0.064 ng/mL (0.00-0.029) H D 02/22/21 04:00 NT-Pro-B Natriuret Pep 6717 pg/mL (0-900) H 02/12/21 12:20 Total Protein 6.4 g/dL (6.3-8.2) 02/13/21 Unknown Albumin 3.1 g/dL (3.9-5) L 02/13/21 Unknown Albumin/Globulin Ratio 0.9 % 02/13/21 Unknown Triglycerides 139 mg/dL (2-149) 02/22/21 04:00 Cholesterol 99 mg/dL (50-199) 02/12/21 12:20 LDL Cholesterol Direct 40 mg/dL (50-130) L 02/12/21 12:20 HDL Cholesterol 42 mg/dL (40-59) 02/12/21 12:20 Cholesterol/HDL Ratio 2.35 % 02/12/21 12:20 Arterial Blood Glucose 316 mg/dL (65-95) H 02/23/21 09:20 Arterial Blood Ionized Calcium 4.2 mg/dL (4.6-5.3) L 02/23/21 09:20 Urine Color Vikki (Yellow) 02/12/21 Unknown Urine Turbidity Cloudy (Clear) 02/12/21 Unknown Urine pH 5.0 (5.0-7.0) 02/12/21 Unknown Ur Specific [place] 1.017 (1.003-1.030) 02/12/21 Unknown Urine Protein >500 mg/dL (Negative) 02/12/21 Unknown Urine Glucose (UA) >=500 mg/dL (Negative) 02/12/21 Unknown Urine Ketones Neg mg/dL (Negative) 02/12/21 Unknown Urine Blood Neg (Negative) 02/12/21 Unknown Urine Nitrite Neg (Negative) 02/12/21 Unknown Urine Bilirubin Neg (Negative) 02/12/21 Unknown Urine Urobilinogen < 2.0 mg/dL (<2.0) 02/12/21 Unknown Ur Leukocyte Esterase Neg (Negative) 02/12/21 Unknown Urine WBC (Auto) 42.0 /HPF (0.0-6.0) H 02/12/21 Unknown Urine RBC (Auto) 2.0 /HPF (0.0-6.0) 02/12/21 Unknown U Epithel Cells (Auto) 5.0 /HPF (0-13.0) 02/12/21 Unknown Hyaline Casts 5 /LPF 02/12/21 Unknown Granular Casts 5 /LPF 02/12/21 Unknown Urine Mucus 1+ /HPF 02/12/21 Unknown Urine Osmolality 334 Mosm/kg 02/23/21 Unknown Urine Creatinine 161.0 mg/dL (0.1-20.0) H 02/23/21 Unknown Urine Creatinine 161.0 mg/dL (0.1-20.0) H 02/23/21 Unknown Protein/Creatinin Ratio 0.69 02/23/21 Unknown Urine Sodium 33 mmol/L 02/23/21 Unknown Urine Sodium 33 mmol/L 02/23/21 Unknown Urine Potassium 52.90 mmol/L 02/23/21 Unknown Urine Urea Nitrogen 256 02/23/21 Unknown Urine Total Protein 111 mg/dL (5-11.8) H 02/23/21 Unknown Coronavirus (PCR) Negative (Negative) 02/12/21 09:17 Blood Type A POSITIVE 02/15/21 11:30 Antibody Screen Negative 02/15/21 11:30 Crossmatch See Detail 02/15/21 11:30 Asencio/IV: Voiding Method Indwelling Catheter Active Medications - Current Medications Current Medications: Generic Name Dose Route Start Last Admin Trade Name Freq PRN Reason Stop Dose Admin Acetaminophen 650 mg 02/12/21 20:45 02/20/21 16:04 Acetaminophen 325 Mg Tab PO 650 mg Q4H PRN Administration Pain MILD(1-3)/Fever >100.5/CHAMBERS Lipase/Protease/Amylase 1 each 02/20/21 12:00 Lipase 10,500/Protease 25,000/Amylase 43,750 (Units) Dr Meza FEEDTUBE PRN PRN For Clogged Feeding Tube Aspirin 81 mg 02/17/21 10:00 02/23/21 09:45 Aspirin 81 Mg Tab Chew PO 81 mg QDAY AV Administration Atorvastatin Calcium 40 mg 02/12/21 22:00 02/22/21 21:28 Atorvastatin 40 Mg Tab PO 40 mg QHS AV Administration Dextrose 50 ml 02/13/21 11:30 Dextrose 50% In Water (25gm) 50 Ml Syringe IV Q30MIN PRN Hypoglycemia Protocol Famotidine 20 mg 02/23/21 10:00 02/23/21 09:46 Famotidine 20 Mg Tab PO 20 mg DAILY AV Administration Fentanyl 50 mcg 02/22/21 20:30 Fentanyl 100 Mcg/2 Ml Inj IV Q10MIN PRN ANALGESIA Heparin Sodium (Porcine) 3,900 unit 02/20/21 13:08 Heparin 10,000 Units/10 Ml Vial 40 unit/kg (3900 unit) IV Q6H PRN Anti-Xa Assay < 0.1 units/ml Hydrophilic Ointment 1 applic 02/19/21 10:59 Lip Therapy Vaseline TP Q2HR PRN Dry Lips Propofol 1,000 mg in 100 mls @ 2.946 mls/hr 02/19/21 11:00 02/23/21 13:21 Diprivan 10 Mg/Ml IV 0 mcg/kg/min TITR AV 0 mls/hr Titration Protocol 5 MCG/KG/MIN Dobutamine HCl/Dextrose 500 mg in 250 mls @ 14.73 mls/hr 02/19/21 13:00 02/20/21 19:00 Dobutrex Drip 500mg/D5w 250ml IV 0 mcg/kg/min DIRECT AV 0 mls/hr Infusion Protocol 5 MCG/KG/MIN NORepinephrine/NS 8 MG-250 ML 8 mg in 250 mls @ 3.75 mls/hr 02/19/21 13:00 02/23/21 13:22 Norepinephrine/Ns 8 Mg-250 Ml (Double Conc) IV 30 mcg/min TITRATE AV 56.25 mls/hr Titration Protocol 2 MCG/MIN Heparin Sodium/Sodium Chloride 25,000 unit in 500 mls @ 29 mls/hr 02/20/21 14:00 02/22/21 22:23 Heparin/ 0.45% Nacl-25,000 Unit/500 Ml IV 1,050 units/hr TITR AV 21 mls/hr Titration Protocol 1,450 UNITS/HR Fentanyl Citrate 2,000 mcg in 100 mls @ 4.91 mls/hr 02/22/21 20:30 02/23/21 00:34 Fentanyl Drip Premix IV 1 mcg/kg/hr TITR AV 4.91 mls/hr Administration Protocol 1 MCG/KG/HR Vasopressin 20 unit/ Sodium 101 mls @ 9.09 mls/hr 02/23/21 13:30 Chloride IV TITR AV Protocol 0.03 UNITS/MIN Insulin Glargine 15 units 02/23/21 08:00 02/23/21 08:57 Insulin Glargine 100 Units/Ml SUB-Q 15 units QAMDIAB AV Administration Insulin Human Lispro 0 unit 02/20/21 12:00 02/23/21 06:20 Insulin Lispro 100 Unit/Ml SUB-Q 6 unit Q6HR AV Administration Protocol Metoclopramide HCl 5 mg 02/12/21 20:56 Metoclopramide 10 Mg/2 Ml Inj IV Q6H PRN Nausea And Vomiting Multi-Ingred Cream/Lotion/Oil/Oint 1 applic 02/19/21 10:59 Mineral Oil/Petrolatum, White Ophth Oint 3.5 Gm OU Q4HR PRN Dry Eye(s) Ondansetron HCl 4 mg 02/12/21 20:45 Ondansetron 4 Mg/2 Ml Inj IV Q8H PRN Nausea And Vomiting Phenyleph/Shark Oil/Min Oil/Petrol 1 applic 02/15/21 12:52 Pe/Mo/Pet,Wh 10 Applic/28 Gm Tube UT Q6HR PRN Hemorrhoids Senna/Docusate Sodium 1 tab 02/19/21 22:00 02/23/21 09:46 Sennosides/Docusate Sodium 8.6/50 Mg Tab FEEDTUBE 1 tab BID AV Administration Simple Syrup 15 ml 02/20/21 12:00 Simple Syrup 15 Ml FEEDTUBE PRN PRN Hypoglycemia Simple Syrup 30 ml 02/20/21 12:00 Simple Syrup 15 Ml FEEDTUBE PRN PRN Hypoglycemia Sodium Bicarbonate 325 mg 02/20/21 12:00 Sodium Bicarbonate 325 Mg Tab FEEDTUBE PRN PRN For Clogged Feeding Tube Sodium Chloride 10 ml 02/12/21 22:00 02/23/21 09:46 Sodium Chloride 0.9% 10 Ml Flush Syringe IV 10 ml BID AV Administration Sodium Chloride 10 ml 02/12/21 20:45 Sodium Chloride 0.9% 10 Ml Flush Syringe IV PRN PRN LINE FLUSH Sodium Chloride 5 ml 02/23/21 11:25 Sodium Chloride 0.9% 500 Ml Ivpb IV PRN PRN ART LINE Nutrition/Malnutrition Assess - Dietary Evaluation Nutrition/Malnutrition Findings: Nutrition Notes Start: 02/13/21 11:14 Freq: Status: Active Protocol: Document 02/23/21 11:58 (Rec: 02/23/21 12:01 [id number]) Nutrition Notes Initial or Follow up Reassessment Current Diagnosis COPD,Diabetes,Sepsis, Hypertension,Heart Failure, Respiratory Failure, Hyperlipidemia Current Diet Vital AF 1.2 at 50 ml/hr Labs/Tests Na 135 BUN 95 Cr 3.5 BG 324 Pertinent Medications Norepi Propofol at 2.946 ml/hr Height 5 ft 2 in Weight 98.2 kg [place] Body Weight (kg) 50.00 BMI 39.6 Weight Status Morbidly Obese Subjective/Other Information FU for TF start. Pt tolerating TF. MD states he will increase insulin. If BG stay elevated will change TF. Percent of energy/protein needs met: 98%/90% Burn Absent Trauma Absent Current % PO Negligible Minimum of two criteria Yes Energy Intake (severe) < or equal to 50% Estimated Energy Requirement > or equal to 5 days Fluid Accumulation Mild (non-severe) #2 Nutrition Diagnosis Malnutrition Diagnosis Progress(for reassessment Continues documentation) #1 Nutrition Diagnosis Inadequate oral intake Diagnosis Progress(for reassessment Continues documentation) Is patient on ventilator? Yes Is Patient Ambulatory and/or Out of Bed No REE-([facility]-confined to bed) 1757.748 Kcal/Kg value to use for calculation 15 Approximate Energy Requirements Using 1473 kcal/Kg Calculation Used for Recommendations Kcal/kg Additional Notes Protein: (>2g/kg IBW) greater than 100g Fluid: 1 ml/kcal or per MD Nutrition Intervention Nutrition Support: Vital AF 1.2 at 50 ml/hr Flush 200 ml q4h for hpyernatermia. Once resolved, flush 100 ml q4h. Kcal 1,440 Protein (gm) 90 Fluid (mL) 973 Goal #1 Meet at least 75% of protein and energy needs via TF Anticipated Discharge Needs: Unable to determine at this time Follow-Up By: 07/14/21 Additional Comments FU for TF tolerance and BG <REJI CORTES R - Last Filed: 02/24/21 12:48> Assessment and Plan Assessment and plan: I saw and evaluated the patient. I agree with the findings and the plan of care as documented in the Nurse Practitioner's~note, with the following corrections and additions. discussed with patient's and updated him with all details. wished to change code status to DNR and signed the paper work. Patient remains critically ill with very poor prognosis. Hospitalist Physical - Constitutional Vitals: Temp Pulse Resp BP Pulse Ox 102 F H 114 H 20 134/50 94 02/24/21 12:20 02/24/21 12:15 02/24/21 12:15 02/24/21 12:15 02/24/21 12:15 HEART Score - HEART Score Troponin: Troponin T 0.064 ng/mL (0.00-0.029) H D 02/22/21 04:00 Results - Labs CBC & Chem 7: 02/22/21 04:00 02/23/21 Unknown Labs: Laboratory Last Values WBC 15.8 K/mm3 (4.5-11.0) H 02/22/21 04:00 RBC 3.16 M/mm3 (3.65-5.03) L 02/22/21 04:00 Hgb 9.0 gm/dl (10.1-14.3) L 02/22/21 04:00 Hct 28.4 % (30.3-42.9) L 02/22/21 04:00 MCV 90 fl (79-97) 02/22/21 04:00 MCH 29 pg (28-32) 02/22/21 04:00 MCHC 32 % (30-34) 02/22/21 04:00 RDW 16.7 % (13.2-15.2) H 02/22/21 04:00 Plt Count 295 K/mm3 (140-440) 02/22/21 04:00 Lymph % (Auto) 7.1 % (13.4-35.0) L 02/22/21 04:00 [place] % (Auto) 6.5 % (0.0-7.3) 02/22/21 04:00 Eos % (Auto) 1.3 % (0.0-4.3) 02/22/21 04:00 Baso % (Auto) 0.4 % (0.0-1.8) 02/22/21 04:00 Lymph # (Auto) 1.1 K/mm3 (1.2-5.4) L 02/22/21 04:00 [place] # (Auto) 1.0 K/mm3 (0.0-0.8) H 02/22/21 04:00 Eos # (Auto) 0.2 K/mm3 (0.0-0.4) 02/22/21 04:00 Baso # (Auto) 0.1 K/mm3 (0.0-0.1) 02/22/21 04:00 Add Manual Diff Complete 02/13/21 Unknown Total Counted 100 02/13/21 Unknown Seg Neutrophils % 84.7 % (40.0-70.0) H 02/22/21 04:00 Seg Neuts % (Manual) 98.0 % (40.0-70.0) H 02/13/21 Unknown Band Neutrophils % 2.0 % 02/13/21 Unknown Lymphocytes % (Manual) 0.5 % (13.4-35.0) L 02/12/21 14:25 Monocytes % (Manual) 6.0 % (0.0-7.3) 02/12/21 14:25 Basophils % (Manual) 0.5 % (0.0-1.8) 02/12/21 14:25 Metamyelocytes % 1.0 % 02/12/21 14:25 Myelocytes % 0.5 % 02/12/21 14:25 Nucleated RBC % Not Reportable 02/13/21 Unknown Seg Neutrophils # 13.4 K/mm3 (1.8-7.7) H 02/22/21 04:00 Seg Neutrophils # Man 24.3 K/mm3 (1.8-7.7) H 02/13/21 Unknown Band Neutrophils # 0.5 K/mm3 02/13/21 Unknown Lymphocytes # (Manual) 0.0 K/mm3 (1.2-5.4) L 02/13/21 Unknown Abs React Lymphs (Man) 0.0 K/mm3 02/13/21 Unknown Monocytes # (Manual) 0.0 K/mm3 (0.0-0.8) 02/13/21 Unknown Eosinophils # (Manual) 0.0 K/mm3 (0.0-0.4) 02/13/21 Unknown Basophils # (Manual) 0.0 K/mm3 (0.0-0.1) 02/13/21 Unknown Metamyelocytes # 0.0 K/mm3 02/13/21 Unknown Myelocytes # 0.0 K/mm3 02/13/21 Unknown Promyelocytes # 0.0 K/mm3 02/13/21 Unknown Blast Cells # 0.0 K/mm3 02/13/21 Unknown WBC Morphology Not Reportable 02/13/21 Unknown Hypersegmented Neuts Not Reportable 02/13/21 Unknown Hyposegmented Neuts Not Reportable 02/13/21 Unknown Hypogranular Neuts Not Reportable 02/13/21 Unknown Smudge Cells Not Reportable 02/13/21 Unknown Toxic Granulation Not Reportable 02/13/21 Unknown Toxic Vacuolation Not Reportable 02/13/21 Unknown Dohle Bodies Not Reportable 02/13/21 Unknown Pelger-Huet Anomaly Not Reportable 02/13/21 Unknown Dawn Rods Not Reportable 02/13/21 Unknown Platelet Estimate Consistent w auto 02/13/21 Unknown Clumped Platelets Not Reportable 02/13/21 Unknown Plt Clumps, EDTA Not Reportable 02/13/21 Unknown Large Platelets Not Reportable 02/13/21 Unknown Giant Platelets Not Reportable 02/13/21 Unknown Platelet Satelliting Not Reportable 02/13/21 Unknown Plt Morphology Comment Not Reportable 02/13/21 Unknown RBC Morphology Not Reportable 02/13/21 Unknown Dimorphic RBCs Not Reportable 02/13/21 Unknown Polychromasia Not Reportable 02/13/21 Unknown Hypochromasia Not Reportable 02/13/21 Unknown Poikilocytosis Not Reportable 02/13/21 Unknown Anisocytosis Not Reportable 02/13/21 Unknown Microcytosis Not Reportable 02/13/21 Unknown Macrocytosis Not Reportable 02/13/21 Unknown Spherocytes Not Reportable 02/13/21 Unknown Pappenheimer Bodies Not Reportable 02/13/21 Unknown Sickle Cells Not Reportable 02/13/21 Unknown Target Cells Not Reportable 02/13/21 Unknown Tear Drop Cells Not Reportable 02/13/21 Unknown Ovalocytes Few 02/13/21 Unknown Helmet Cells Not Reportable 02/13/21 Unknown Phipps-Pax Bodies Not Reportable 02/13/21 Unknown Gruetli Laager Rings Not Reportable 02/13/21 Unknown Yahaira Cells Not Reportable 02/13/21 Unknown Bite Cells Not Reportable 02/13/21 Unknown Crenated Cell Not Reportable 02/13/21 Unknown Elliptocytes Not Reportable 02/13/21 Unknown Acanthocytes (Spur) Not Reportable 02/13/21 Unknown Rouleaux Not Reportable 02/13/21 Unknown Hemoglobin C Crystals Not Reportable 02/13/21 Unknown Schistocytes Not Reportable 02/13/21 Unknown Malaria parasites Not Reportable 02/13/21 Unknown Mayo Bodies Not Reportable 02/13/21 Unknown Hem Pathologist Commnt No 02/13/21 Unknown PT 19.5 Sec. (12.2-14.9) H 02/20/21 Unknown INR 1.60 (0.87-1.13) H 02/20/21 Unknown APTT TNR 02/20/21 Unknown Heparin Anti-Xa Level 1.10 U.I./ml (0.3-0.7) H 02/24/21 10:28 ABG pH 7.275 (7.320-7.450) L 02/24/21 04:00 POC ABG pCO2 37.6 mmHg (32.0-48.0) 02/24/21 04:00 POC ABG pO2 103.1 mmHg (83-108) 02/24/21 04:00 POC ABG HCO3 17.1 02/24/21 04:00 ABG O2 Saturation 97.8 (0-100) 02/24/21 04:00 POC ABG Base Excess -9.0 02/24/21 04:00 ABG Hemoglobin 8.6 (12.0-17.5) L 02/24/21 04:00 ABG Oxyhemoglobin 97.1 (94-98) 02/24/21 04:00 ABG Methemoglobin 0.3 (0.0-1.5) 02/24/21 04:00 ABG Sodium 127.9 mmol/L (136.0-145.0) L 02/24/21 04:00 ABG Potassium 5.5 mmol/L (3.40-4.50) H 02/24/21 04:00 ABG Chloride 102.0 mmol/L (98-107) 02/24/21 04:00 ABG Glucose 448 mg/dL (65-95) H 02/24/21 04:00 ABG Lactate 2.74 (0.18-30.0) 02/12/21 16:56 Carboxyhemoglobin 0.4 (0.5-1.5) L 02/24/21 04:00 FiO2 % 70.0 02/24/21 04:00 Sodium 135 mmol/L (137-145) L 02/23/21 Unknown Potassium 4.9 mmol/L (3.6-5.0) 02/23/21 Unknown Chloride 101.5 mmol/L (98-107) 02/23/21 Unknown Carbon Dioxide 23 mmol/L (22-30) 02/23/21 Unknown Anion Gap 15 mmol/L 02/23/21 Unknown BUN 95 mg/dL (7-17) H 02/23/21 Unknown Creatinine 3.6 mg/dL (0.6-1.2) H 02/23/21 Unknown Estimated GFR 13 ml/min 02/23/21 Unknown BUN/Creatinine Ratio 26 % 02/23/21 Unknown Glucose 324 mg/dL (65-100) H 02/23/21 Unknown POC Glucose 426 mg/dL (70-105) H 02/24/21 11:24 Hemoglobin A1c 7.0 % (4-6) H 02/13/21 Unknown Lactic Acid 0.80 mmol/L (0.7-2.0) 02/13/21 Unknown Calcium 7.3 mg/dL (8.4-10.2) L 02/23/21 Unknown Magnesium 2.30 mg/dL (1.7-2.3) 02/18/21 07:10 Total Bilirubin 0.30 mg/dL (0.1-1.2) 02/13/21 Unknown Direct Bilirubin 0.3 mg/dL (0-0.2) H 02/12/21 12:20 Indirect Bilirubin 0.3 mg/dL 02/12/21 12:20 AST 31 units/L (5-40) 02/13/21 Unknown ALT 18 units/L (7-56) 02/13/21 Unknown Alkaline Phosphatase 55 units/L (35-129) 02/13/21 Unknown Ammonia 39.0 umol/L (25-60) 02/12/21 12:20 Troponin T 0.064 ng/mL (0.00-0.029) H D 02/22/21 04:00 NT-Pro-B Natriuret Pep 6717 pg/mL (0-900) H 02/12/21 12:20 Total Protein 6.4 g/dL (6.3-8.2) 02/13/21 Unknown Albumin 3.1 g/dL (3.9-5) L 02/13/21 Unknown Albumin/Globulin Ratio 0.9 % 02/13/21 Unknown Triglycerides 139 mg/dL (2-149) 02/22/21 04:00 Cholesterol 99 mg/dL (50-199) 02/12/21 12:20 LDL Cholesterol Direct 40 mg/dL (50-130) L 02/12/21 12:20 HDL Cholesterol 42 mg/dL (40-59) 02/12/21 12:20 Cholesterol/HDL Ratio 2.35 % 02/12/21 12:20 Arterial Blood Glucose 448 mg/dL (65-95) H 02/24/21 04:00 Arterial Blood Ionized Calcium 4.1 mg/dL (4.6-5.3) L 02/24/21 04:00 Urine Color Yellow (Yellow) 02/24/21 Unknown Urine Turbidity Turbid (Clear) 02/24/21 Unknown Urine pH 5.0 (5.0-7.0) 02/24/21 Unknown Ur Specific [place] 1.015 (1.003-1.030) 02/24/21 Unknown Urine Protein 100 mg/dl mg/dL (Negative) 02/24/21 Unknown Urine Glucose (UA) 150 mg/dL (Negative) 02/24/21 Unknown Urine Ketones Neg mg/dL (Negative) 02/24/21 Unknown Urine Blood Lg (Negative) 02/24/21 Unknown Urine Nitrite Neg (Negative) 02/24/21 Unknown Urine Bilirubin Neg (Negative) 02/24/21 Unknown Urine Urobilinogen < 2.0 mg/dL (<2.0) 02/24/21 Unknown Ur Leukocyte Esterase Lg (Negative) 02/24/21 Unknown Urine WBC (Auto) > 182.0 /HPF (0.0-6.0) H 02/24/21 Unknown Urine RBC (Auto) > 182.0 /HPF (0.0-6.0) 02/24/21 Unknown U Epithel Cells (Auto) 28.0 /HPF (0-13.0) H 02/24/21 Unknown Urine Bacteria (Auto) 2+ /HPF (Negative) 02/24/21 Unknown Urine WBC Clumps 1+ /HPF 02/24/21 Unknown Hyaline Casts 5 /LPF 02/12/21 Unknown Granular Casts 5 /LPF 02/12/21 Unknown Urine Mucus 1+ /HPF 02/12/21 Unknown Urine Yeast (Budding) 3+ /HPF 02/24/21 Unknown Urine Osmolality 334 Mosm/kg 02/23/21 Unknown Urine Creatinine 161.0 mg/dL (0.1-20.0) H 02/23/21 Unknown Urine Creatinine 161.0 mg/dL (0.1-20.0) H 02/23/21 Unknown Protein/Creatinin Ratio 0.69 02/23/21 Unknown Urine Sodium 33 mmol/L 02/23/21 Unknown Urine Sodium 33 mmol/L 02/23/21 Unknown Urine Potassium 52.90 mmol/L 02/23/21 Unknown Urine Urea Nitrogen 256 02/23/21 Unknown Urine Total Protein 111 mg/dL (5-11.8) H 02/23/21 Unknown Coronavirus (PCR) Negative (Negative) 02/12/21 09:17 Hepatitis A IgM Ab Non-reactive (NonReactive) 02/23/21 23:51 Hep Bs Antigen Non-reactive (Negative) 02/23/21 23:51 Hep B Core IgM Ab Non-reactive (NonReactive) 02/23/21 23:51 Hepatitis C Antibody Non-reactive (NonReactive) 02/23/21 23:51 Blood Type A POSITIVE 02/15/21 11:30 Antibody Screen Negative 02/15/21 11:30 Crossmatch See Detail 02/15/21 11:30 Asencio/IV: Voiding Method Indwelling Catheter Active Medications - Current Medications Current Medications: Generic Name Dose Route Start Last Admin Trade Name Freq PRN Reason Stop Dose Admin Acetaminophen 650 mg 02/12/21 20:45 02/24/21 06:28 Acetaminophen 325 Mg Tab PO 650 mg Q4H PRN Administration Pain MILD(1-3)/Fever >100.5/CHAMBERS Lipase/Protease/Amylase 1 each 02/20/21 12:00 Lipase 10,500/Protease 25,000/Amylase 43,750 (Units) Dr Derrick THOMPSONTUBE PRN PRN For Clogged Feeding Tube Aspirin 81 mg 02/17/21 10:00 02/24/21 09:07 Aspirin 81 Mg Tab Chew PO 81 mg QDAY AV Administration Atorvastatin Calcium 40 mg 02/12/21 22:00 02/23/21 21:43 Atorvastatin 40 Mg Tab PO 40 mg QHS AV Administration Dextrose 50 ml 02/13/21 11:30 Dextrose 50% In Water (25gm) 50 Ml Syringe IV Q30MIN PRN Hypoglycemia Protocol Famotidine 20 mg 02/23/21 10:00 02/24/21 09:07 Famotidine 20 Mg Tab PO 20 mg DAILY AV Administration Furosemide 80 mg 02/24/21 18:00 Furosemide 100 Mg/10 Ml Inj IV 0600,1800 AV Heparin Sodium (Porcine) 3,900 unit 02/20/21 13:08 Heparin 10,000 Units/10 Ml Vial 40 unit/kg (3900 unit) IV Q6H PRN Anti-Xa Assay < 0.1 units/ml Hydrophilic Ointment 1 applic 02/19/21 10:59 Lip Therapy Vaseline TP Q2HR PRN Dry Lips NORepinephrine/NS 8 MG-250 ML 8 mg in 250 mls @ 3.75 mls/hr 02/19/21 13:00 02/24/21 12:18 Norepinephrine/Ns 8 Mg-250 Ml (Double Conc) IV 25 mcg/min TITRATE AV 46.875 mls/hr Titration Protocol 2 MCG/MIN Heparin Sodium/Sodium Chloride 25,000 unit in 500 mls @ 29 mls/hr 02/20/21 14:00 02/24/21 11:03 Heparin/ 0.45% Nacl-25,000 Unit/500 Ml IV 0 units/hr TITR AV 0 mls/hr Titration Protocol 1,450 UNITS/HR Fentanyl Citrate 2,000 mcg in 100 mls @ 4.91 mls/hr 02/22/21 20:30 02/24/21 11:28 Fentanyl Drip Premix IV 1 mcg/kg/hr TITR AV 4.91 mls/hr Administration Protocol 1 MCG/KG/HR Vasopressin 20 unit/ Sodium 101 mls @ 9.09 mls/hr 02/23/21 13:30 02/24/21 11:03 Chloride IV 0.03 units/min TITR AV 9.09 mls/hr Administration Protocol 0.03 UNITS/MIN Epinephrine 8 mg/ Sodium 250 mls @ 3.75 mls/hr 02/24/21 11:00 02/24/21 11:28 Chloride IV 2 mcg/min TITR AV 3.75 mls/hr Administration Protocol 2 MCG/MIN Insulin Glargine 20 units 02/24/21 08:00 02/24/21 09:01 Insulin Glargine 100 Units/Ml SUB-Q 20 units QAMDIAB AV Administration Insulin Human Lispro 0 unit 02/24/21 14:00 Insulin Lispro 100 Unit/Ml SUB-Q Q4HR AV Protocol Multi-Ingred Cream/Lotion/Oil/Oint 1 applic 02/19/21 10:59 Mineral Oil/Petrolatum, White Ophth Oint 3.5 Gm OU Q4HR PRN Dry Eye(s) Ondansetron HCl 4 mg 02/12/21 20:45 Ondansetron 4 Mg/2 Ml Inj IV Q8H PRN Nausea And Vomiting Phenyleph/Shark Oil/Min Oil/Petrol 1 applic 02/15/21 12:52 Pe/Mo/Pet,Wh 10 Applic/28 Gm Tube UT Q6HR PRN Hemorrhoids Senna/Docusate Sodium 1 tab 02/19/21 22:00 02/24/21 09:07 Sennosides/Docusate Sodium 8.6/50 Mg Tab FEEDTUBE 1 tab BID AV Administration Simple Syrup 15 ml 02/20/21 12:00 Simple Syrup 15 Ml FEEDTUBE PRN PRN Hypoglycemia Simple Syrup 30 ml 02/20/21 12:00 Simple Syrup 15 Ml FEEDTUBE PRN PRN Hypoglycemia Sodium Bicarbonate 325 mg 02/20/21 12:00 Sodium Bicarbonate 325 Mg Tab FEEDTUBE PRN PRN For Clogged Feeding Tube Sodium Chloride 10 ml 02/12/21 22:00 02/24/21 09:07 Sodium Chloride 0.9% 10 Ml Flush Syringe IV 10 ml BID AV Administration Sodium Chloride 5 ml 02/23/21 11:25 Sodium Chloride 0.9% 500 Ml Ivpb IV PRN PRN ART LINE Nutrition/Malnutrition Assess - Dietary Evaluation Nutrition/Malnutrition Findings: Nutrition Notes Start: 02/13/21 11:14 Freq: Status: Active Protocol: Document 02/24/21 12:02 CW (Rec: 02/24/21 12:17 CW [id number]) Nutrition Notes Initial or Follow up Reassessment Current Diagnosis Acute Kidney Injury,COPD, Diabetes,Sepsis,Hypertension, Heart Failure,Respiratory Failure,Hyperlipidemia Current Diet Vital AF 1.2 at 50 ml/hr Labs/Tests Na 135 BUN 95 Cr 3.6 BG 324 K 4.9 Pertinent Medications Epinephrine Vasopressin Norepinephrine Senokot lantus lasix humalog Height 5 ft 2 in Weight 98.2 kg [place] Body Weight (kg) 50.00 BMI 39.6 Weight Status Morbidly Obese Subjective/Other Information MD consult for change TF. Rneal related labs are elevated. Will change TF to Nepro Percent of energy/protein needs met: 98%/90% Burn Absent Trauma Absent Current % PO Negligible Minimum of two criteria Yes Energy Intake (severe) < or equal to 50% Estimated Energy Requirement > or equal to 5 days Fluid Accumulation Mild (non-severe) #2 Nutrition Diagnosis Malnutrition Diagnosis Progress(for reassessment Continues documentation) #1 Nutrition Diagnosis Inadequate oral intake Diagnosis Progress(for reassessment Continues documentation) Is patient on ventilator? Yes Is Patient Ambulatory and/or Out of Bed No REE-([place]-confined to bed) 1757.748 Kcal/Kg value to use for calculation 15 Approximate Energy Requirements Using 1473 kcal/Kg Calculation Used for Recommendations Kcal/kg Additional Notes Protein: (>2g/kg IBW) greater than 100g Fluid: 1 ml/kcal or per MD Nutrition Intervention Change Diet Order: Change TF Nutrition Support: Nepro at 35 ml/hr with a free water flush of 150 ml q4h Kcal 1,512 Protein (gm) 68 Fluid (mL) 611 Goal #1 Meet at least 75% of protein and energy needs via TF Anticipated Discharge Needs: Unable to determine at this time Follow-Up By: 02/27/21 Additional Comments F/U for TF tolerance and BG
[2021-02-23] MEDS: VASOPRESSIN 20 UNIT in SODIUM CHLORIDE 0.9% 100 ML IV SCH ×2 (14:34→21:43)
[2021-02-23] MEDS: HEPARIN/ 0.45% NACL DRIP 25,000 UNIT/500 ML BAG IV SCH (16:30)
[2021-02-23] MEDS: ACETAMINOPHEN 325 MG TAB PO PRN (17:57)
--- NOTE | 2021-02-23 18:11 | Procedure Note ---
Date of procedure: 02/23/21 Pre-op diagnosis: Acute hypoxic respiratory failure, acute on chronic CHF Post-op diagnosis: same Procedure: Right radial escobar inserted using sterile technique. Ulnar pulse palpable. Jonathon test completed. Area prepped with chlorhexidine and the site was infiltrated with 1ml 1% lidocaine. Arterial line was placed using ultrasound; catheter advanced without difficulty. Line was sutured, biopatch placed and tegaderm dressing applied. Arm board placed. Arterial waveform observed on bedside monitor. Line flushed and zeroed. RN at bedside. Pt tolerated procedure well. Anesthesia: local Surgeon: TREMAYNE PERDOMO Medical Support Assistant: ROMEO SÁNCHEZ Estimated blood loss: none Pathology: none Condition: critical Disposition: ICU
--- NOTE | 2021-02-23 18:15 | Procedure Note ---
Date of procedure: 02/23/21 Pre-op diagnosis: Acute hypoxic respiratory failure, shock Post-op diagnosis: same Procedure: Verbal consent for trialysis catheter placement from , Mr. Lynne over the phone. consent in chart. Left IJ vascath catheter placed without difficulty. Sterile technique utilized. Area prepped with chlorhexidine/ full body drape utilized. Line was sutured, biopatch placed and tegaderm dressing applied. Chest xray to confirm placement. No pneumothorax. RN called to bedside. Pt tolerated procedure well. VS remained stable throughout procedure. (time spent placing line not included in daily critical care time) Anesthesia: local Surgeon: TREMAYNE PERDOMO Security System Administrator: ROMEO SÁNCHEZ Estimated blood loss: none Condition: critical Disposition: ICU
[2021-02-24 01:28] LABS: Hepatitis B Surface Antigen Non-Reactive (Negative); Hepatitis C Virus Antibody Non-Reactive (NonReactive)
[2021-02-24] MEDS: NORepinephrine/NS 8 MG-250 ML 8 MG/250 ML INFUS..BTL IV SCH ×3 (03:56→10:44)
[2021-02-24] MEDS: ACETAMINOPHEN 325 MG TAB PO PRN (06:28)
[2021-02-24] MEDS: INSULIN LISPRO 100 UNIT/ML SUB-Q SCH ×3 (06:30→11:31)
[2021-02-24] MEDS ORDERED: INSULIN GLARGINE 100 UNITS/ML SUB-Q SCH (08:00)
--- NOTE | 2021-02-24 08:51 | Progress Note ---
Assessment and Plan 1. Acute kidney injury: Vasomotor ANGELA superimposed on CKD in the setting of Cardiac arrest/ hypotension. Renal US negative for hydro. Urine studies ordered. Monitor renal function. Creatinine level increasing. UOP is low. Avoid nephrotoxic agents. Meds dosage based on GFR. 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 Patient require hemodialysis due to significant decline in the GFR, associated hyperkalemia, metabolic acidosis and volume overload. Patient gave verbal consent for hemodialysis (02/23). Due to multipressor shock and tachycardia unable to do dialysis so far. Will follow. 2. FEN: Hypernatremia, improved, monitor. Monitor lytes and volume status. No labs from today. 3. S/p cardiac arrest: 02/13 echocardiogram showed LVEF 20 to 25%. Followed by Cardiology. 4. Acute HFeEF: Followed by Cardiology. Was on Dobutamine drip. 5. Acute respiratory failure: S/p mechanical ventilation s/p self extubation. Re-intubated 02/19. Followed by Pulmonary. 6. Elevated troponin: S/p cardiac arrest. Followed by Cards. 7. Acute metabolic encephalopathy: Monitor. 8. Shock: On Levophed and Vasopressin. Monitor Blood pressure. 9. Bilateral pleural effusions: Diuretics when BP is better. 10. Sepsis, POA: Follow culture. Monitor. 11. H/o Breast CA. 12. DM: SSI, long acting insulin (titrate as needed). Subjective: Patient was seen and examined at the bedside. Examination: General appearance: obese, well-developed, appears stated age, intubated on vent HEENT: ATNC, Pupils equal Neck: trachea midline Respiratory: Coarse breath sounds Heart: regular, S1S2, no murmur Abdomen: soft, normoactive bowel sounds, not tender Integumentary: LE stasis changes Neurologic: sedated Ext: trace LE edema : asencio catheter Hemodialysis access: L IJ temp catheter Subjective Date of service: 02/24/21 Principal diagnosis: Pulmonary Edema Objective - Vital Signs Vital signs: Vital Signs - 12hr 02/23/21 02/23/21 02/23/21 21:00 21:15 21:30 Temperature Pulse Rate 110 H 111 H 112 H Pulse Rate [ From Monitor] Respiratory 20 20 20 Rate Blood Pressure 160/57 149/64 155/58 O2 Sat by Pulse 100 100 100 Oximetry 02/23/21 02/23/2121 21:45 22:00 22:15 Temperature Pulse Rate 111 H 112 H 111 H Pulse Rate [ From Monitor] Respiratory 20 20 20 Rate Blood Pressure 149/63 153/66 142/58 O2 Sat by Pulse 100 100 100 Oximetry 02/23/21 02/23/21 02/23/21 22:30 22:45 23:00 Temperature Pulse Rate 111 H 112 H 113 H Pulse Rate [ From Monitor] Respiratory 20 20 20 Rate Blood Pressure 152/55 156/58 157/59 O2 Sat by Pulse 100 100 100 Oximetry 02/23/21 02/23/21 02/23/21 23:15 23:30 23:45 Temperature Pulse Rate 112 H 113 H 112 H Pulse Rate [ From Monitor] Respiratory 20 20 20 Rate Blood Pressure 149/59 150/60 142/58 O2 Sat by Pulse 100 99 99 Oximetry 02/23/21 02/24/21 02/24/21 23:58 00:00 00:15 Temperature 102.2 F H Pulse Rate 111 H 111 H Pulse Rate [ 100 H From Monitor] Respiratory 20 20 Rate Blood Pressure 163/55 143/55 O2 Sat by Pulse 99 99 Oximetry 02/24/21 02/24/21 02/24/21 00:30 00:45 01:00 Temperature Pulse Rate 111 H 111 H 111 H Pulse Rate [ From Monitor] Respiratory 20 21 20 Rate Blood Pressure 151/52 150/55 140/54 O2 Sat by Pulse 99 99 99 Oximetry 02/24/21 02/24/21 02/24/21 01:15 01:30 01:45 Temperature Pulse Rate 111 H 112 H 112 H Pulse Rate [ From Monitor] Respiratory 20 21 20 Rate Blood Pressure 151/63 144/63 151/54 O2 Sat by Pulse 99 99 99 Oximetry 02/24/21 02/24/21 02/24/21 02:00 02:15 02:30 Temperature Pulse Rate 112 H 112 H 113 H Pulse Rate [ From Monitor] Respiratory 20 20 21 Rate Blood Pressure 144/64 149/61 138/59 O2 Sat by Pulse 99 99 99 Oximetry 02/24/21 02/24/21 02/24/21 02:45 03:00 03:15 Temperature Pulse Rate 112 H 112 H 112 H Pulse Rate [ From Monitor] Respiratory 20 20 21 Rate Blood Pressure 154/58 154/58 144/56 O2 Sat by Pulse 99 99 99 Oximetry 02/24/21 02/24/21 02/24/21 03:30 03:45 04:00 Temperature 100.9 F H Pulse Rate 111 H 112 H 112 H Pulse Rate [ 112 H From Monitor] Respiratory 20 19 20 Rate Blood Pressure 126/58 154/56 144/53 O2 Sat by Pulse 99 99 99 Oximetry 02/24/21 02/24/21 02/24/21 04:15 04:20 04:30 Temperature Pulse Rate 112 H 114 H 116 H Pulse Rate [ From Monitor] Respiratory 19 20 Rate Blood Pressure 146/59 106/51 143/56 O2 Sat by Pulse 99 99 93 Oximetry 02/24/21 02/24/21 02/24/21 04:45 05:00 05:15 Temperature Pulse Rate 115 H 116 H 116 H Pulse Rate [ From Monitor] Respiratory 19 19 19 Rate Blood Pressure 142/55 156/59 129/59 O2 Sat by Pulse 92 93 93 Oximetry 02/24/21 02/24/21 02/24/21 05:30 05:45 06:00 Temperature Pulse Rate 115 H 117 H 117 H Pulse Rate [ From Monitor] Respiratory 20 21 20 Rate Blood Pressure 142/57 159/56 136/58 O2 Sat by Pulse 93 92 93 Oximetry 02/24/21 08:08 Temperature Pulse Rate 119 H Pulse Rate [ From Monitor] Respiratory Rate Blood Pressure 148/56 O2 Sat by Pulse 95 Oximetry - Lab 02/22/21 04:00 02/23/21 Unknown Most recent lab results ABG pH 7.275 (7.320-7.450) L 02/24/21 04:00 ABG O2 Saturation 97.8 (0-100) 02/24/21 04:00 Calcium 7.3 mg/dL (8.4-10.2) L 02/23/21 Unknown Magnesium 2.30 mg/dL (1.7-2.3) 02/18/21 07:10 Urine Creatinine 161.0 mg/dL (0.1-20.0) H 02/23/21 Unknown Urine Creatinine 161.0 mg/dL (0.1-20.0) H 02/23/21 Unknown Urine Sodium 33 mmol/L 02/23/21 Unknown Urine Sodium 33 mmol/L 02/23/21 Unknown Urine Total Protein 111 mg/dL (5-11.8) H 02/23/21 Unknown Medications & Allergies - Medications Allergies/Adverse Reactions: Allergies Penicillins Allergy (Verified 02/12/21 17:19) Unknown contrast Allergy (Uncoded 02/14/21 18:30) Rash Home Medications: Home Medications Medication Instructions Recorded Confirmed Last Taken Type AtorvaSTATin [Lipitor] 40 mg PO QHS 02/12/21 02/12/21 Unknown History Metoprolol Succinate [Kapspargo 25 mg PO QDAY 02/12/21 02/12/21 Unknown History Sprinkle] Spironolactone [Aldactone] 25 mg PO QDAY 02/12/21 02/12/21 Unknown History amLODIPine [Norvasc] 5 mg PO DAILY 02/12/21 02/12/21 Unknown History glipiZIDE [Glucotrol] 5 mg PO BID 02/12/21 02/12/21 Unknown History metFORMIN [Glucophage] 500 mg PO BID 02/12/21 02/19/21 02/12/21 History Aspirin [Adult Aspirin] 1 tab PO QDAY 02/13/21 02/19/21 02/13/21 History Biotin [Biotin 5,000 rapdis] 5,000 mcg PO QDAY 02/13/21 02/19/21 02/12/21 History NovoLOG Flexpen 2 1000units SC ACHS 02/13/21 02/19/21 02/12/21 History Active Medications: Generic Name Dose Route Start Last Admin Trade Name Freq PRN Reason Stop Dose Admin Acetaminophen 650 mg 02/12/21 20:45 02/24/21 06:28 Acetaminophen 325 Mg Tab PO 650 mg Q4H PRN Administration Pain MILD(1-3)/Fever >100.5/CHAMBERS Lipase/Protease/Amylase 1 each 02/20/21 12:00 Lipase 10,500/Protease 25,000/Amylase 43,750 (Units) Dr Meza FEEDTUBE PRN PRN For Clogged Feeding Tube Aspirin 81 mg 02/17/21 10:00 02/23/21 09:45 Aspirin 81 Mg Tab Chew PO 81 mg QDAY AV Administration Atorvastatin Calcium 40 mg 02/12/21 22:00 02/23/21 21:43 Atorvastatin 40 Mg Tab PO 40 mg QHS AV Administration Dextrose 50 ml 02/13/21 11:30 Dextrose 50% In Water (25gm) 50 Ml Syringe IV Q30MIN PRN Hypoglycemia Protocol Famotidine 20 mg 02/23/21 10:00 02/23/21 09:46 Famotidine 20 Mg Tab PO 20 mg DAILY AV Administration Fentanyl 50 mcg 02/22/21 20:30 Fentanyl 100 Mcg/2 Ml Inj IV Q10MIN PRN ANALGESIA Heparin Sodium (Porcine) 3,900 unit 02/20/21 13:08 Heparin 10,000 Units/10 Ml Vial 40 unit/kg (3900 unit) IV Q6H PRN Anti-Xa Assay < 0.1 units/ml Hydrophilic Ointment 1 applic 02/19/21 10:59 Lip Therapy Vaseline TP Q2HR PRN Dry Lips Propofol 1,000 mg in 100 mls @ 2.946 mls/hr 02/19/21 11:00 02/23/21 13:21 Diprivan 10 Mg/Ml IV 0 mcg/kg/min TITR AV 0 mls/hr Titration Protocol 5 MCG/KG/MIN Dobutamine HCl/Dextrose 500 mg in 250 mls @ 14.73 mls/hr 02/19/21 13:00 02/20/21 19:00 Dobutrex Drip 500mg/D5w 250ml IV 0 mcg/kg/min DIRECT AV 0 mls/hr Infusion Protocol 5 MCG/KG/MIN NORepinephrine/NS 8 MG-250 ML 8 mg in 250 mls @ 3.75 mls/hr 02/19/21 13:00 02/24/21 07:23 Norepinephrine/Ns 8 Mg-250 Ml (Double Conc) IV 30 mcg/min TITRATE AV 56.25 mls/hr Administration Protocol 2 MCG/MIN Heparin Sodium/Sodium Chloride 25,000 unit in 500 mls @ 29 mls/hr 02/20/21 14:00 02/23/21 16:30 Heparin/ 0.45% Nacl-25,000 Unit/500 Ml IV 1,050 units/hr TITR AV 21 mls/hr Administration Protocol 1,450 UNITS/HR Fentanyl Citrate 2,000 mcg in 100 mls @ 4.91 mls/hr 02/22/21 20:30 02/23/21 14:35 Fentanyl Drip Premix IV 1 mcg/kg/hr TITR AV 4.91 mls/hr Administration Protocol 1 MCG/KG/HR Vasopressin 20 unit/ Sodium 101 mls @ 9.09 mls/hr 02/23/21 13:30 02/23/21 21:43 Chloride IV 0.03 units/min TITR AV 9.09 mls/hr Administration Protocol 0.03 UNITS/MIN Insulin Glargine 20 units 02/24/21 08:00 Insulin Glargine 100 Units/Ml SUB-Q QAMDIAB AV Insulin Human Lispro 0 unit 02/20/21 12:00 02/24/21 06:30 Insulin Lispro 100 Unit/Ml SUB-Q 10 unit Q6HR AV Administration Protocol Metoclopramide HCl 5 mg 02/12/21 20:56 Metoclopramide 10 Mg/2 Ml Inj IV Q6H PRN Nausea And Vomiting Multi-Ingred Cream/Lotion/Oil/Oint 1 applic 02/19/21 10:59 Mineral Oil/Petrolatum, White Ophth Oint 3.5 Gm OU Q4HR PRN Dry Eye(s) Ondansetron HCl 4 mg 02/12/21 20:45 Ondansetron 4 Mg/2 Ml Inj IV Q8H PRN Nausea And Vomiting Phenyleph/Shark Oil/Min Oil/Petrol 1 applic 02/15/21 12:52 Pe/Mo/Pet,Wh 10 Applic/28 Gm Tube ID Q6HR PRN Hemorrhoids Senna/Docusate Sodium 1 tab 02/19/21 22:00 02/23/21 21:43 Sennosides/Docusate Sodium 8.6/50 Mg Tab FEEDTUBE 1 tab BID AV Administration Simple Syrup 15 ml 02/20/21 12:00 Simple Syrup 15 Ml FEEDTUBE PRN PRN Hypoglycemia Simple Syrup 30 ml 02/20/21 12:00 Simple Syrup 15 Ml FEEDTUBE PRN PRN Hypoglycemia Sodium Bicarbonate 325 mg 02/20/21 12:00 Sodium Bicarbonate 325 Mg Tab FEEDTUBE PRN PRN For Clogged Feeding Tube Sodium Chloride 10 ml 02/12/21 22:00 02/23/21 09:46 Sodium Chloride 0.9% 10 Ml Flush Syringe IV 10 ml BID AV Administration Sodium Chloride 5 ml 02/23/21 11:25 Sodium Chloride 0.9% 500 Ml Ivpb IV PRN PRN ART LINE
[2021-02-24] MEDS: FAMOTIDINE 20 MG TAB PO SCH (09:07)
[2021-02-24] MEDS: SENNOSIDES/DOCUSATE SODIUM 8.6/50 MG TAB FEEDTUBE SCH (09:07)
[2021-02-24] MEDS: ASPIRIN 81 MG TAB CHEW PO SCH (09:07)
[2021-02-24] MEDS ORDERED: EPINEPHrine 1 MG/1 ML 8 MG in SODIUM CHLORIDE 0.9% 250ML 242 ML IV SCH (11:00)
[2021-02-24] MEDS: VASOPRESSIN 20 UNIT in SODIUM CHLORIDE 0.9% 100 ML IV SCH (11:03)
--- NOTE | 2021-02-24 11:11 | Progress Note ---
Assessment and Plan 71 y/o female with acute respiratory failure, cardiac arrest with subsequent ROSC and then self-extubation, now weaned to HFNC with bilateral pleural effusions, cardiomegaly and elevated BNP. 02/24/21: Agree with DNR/DNI, especially given current cardiac status. Discussed on rounds today a trial of IV lasix at 120 and Epi drip to attempt to help improve forward flow. Also febrile so will obtain blood and urine cultures with next spike. Obtain CXR today. Very very guarded to poor prognosis. 02/23/21: Intubated and sedated. Remains on pressors. Hopeful that with Dialysis and fluid removal, can start to see some improvement. Will continue PEEP at 10 until FiO2 is around 40-45%. Follow up repeat HD labs. Follow up any new cardiology recs. Very guarded prognosis. Per my partner, spoke with over the weekend and he is considering DNR status. 1. Follow up ECHO 2. Agree with obtaining results/records from [facility] 3. Wean Vasopressors for MAPS>60 and normal mentation. 4. Would hold all antihypertensive and rate control meds until off vasopressor therapy. 5. If able to be weaned off pressors, can likely go to step down unit. WIll continue to monitor and follow CCT 31 minutes. Subjective Date of service: 02/24/21 Principal diagnosis: Pulmonary Edema Interval history: No acute events. made patient a DNR/DNI on yesterday. Currently on Vaso and Levophed. MAP is in the 60's. Currently on Fent 1 and diprovan is off. Objective Vital Signs - 12hr 02/23/21 02/23/21 02/23/21 23:15 23:30 23:45 Temperature Pulse Rate 112 H 113 H 112 H Pulse Rate [ From Monitor] Respiratory 20 20 20 Rate Blood Pressure 149/59 150/60 142/58 O2 Sat by Pulse 100 99 99 Oximetry 02/23/21 02/24/21 02/24/21 23:58 00:00 00:15 Temperature 102.2 F H Pulse Rate 111 H 111 H Pulse Rate [ 100 H From Monitor] Respiratory 20 20 Rate Blood Pressure 163/55 143/55 O2 Sat by Pulse 99 99 Oximetry 02/24/21 02/24/21 02/24/21 00:30 00:45 01:00 Temperature Pulse Rate 111 H 111 H 111 H Pulse Rate [ From Monitor] Respiratory 20 21 20 Rate Blood Pressure 151/52 150/55 140/54 O2 Sat by Pulse 99 99 99 Oximetry 02/24/21 02/24/21 02/24/21 01:15 01:30 01:45 Temperature Pulse Rate 111 H 112 H 112 H Pulse Rate [ From Monitor] Respiratory 20 21 20 Rate Blood Pressure 151/63 144/63 151/54 O2 Sat by Pulse 99 99 99 Oximetry 02/24/21 02/24/21 02/24/21 02:00 02:15 02:30 Temperature Pulse Rate 112 H 112 H 113 H Pulse Rate [ From Monitor] Respiratory 20 20 21 Rate Blood Pressure 144/64 149/61 138/59 O2 Sat by Pulse 99 99 99 Oximetry 02/24/21 02/24/21 02/24/21 02:45 03:00 03:15 Temperature Pulse Rate 112 H 112 H 112 H Pulse Rate [ From Monitor] Respiratory 20 20 21 Rate Blood Pressure 154/58 154/58 144/56 O2 Sat by Pulse 99 99 99 Oximetry 02/24/21 02/24/21 02/24/21 03:30 03:45 04:00 Temperature 100.9 F H Pulse Rate 111 H 112 H 112 H Pulse Rate [ 112 H From Monitor] Respiratory 20 19 20 Rate Blood Pressure 126/58 154/56 144/53 O2 Sat by Pulse 99 99 99 Oximetry 02/24/21 02/24/21 02/24/21 04:15 04:20 04:30 Temperature Pulse Rate 112 H 114 H 116 H Pulse Rate [ From Monitor] Respiratory 19 20 Rate Blood Pressure 146/59 106/51 143/56 O2 Sat by Pulse 99 99 93 Oximetry 02/24/21 02/24/21 02/24/21 04:45 05:00 05:15 Temperature Pulse Rate 115 H 116 H 116 H Pulse Rate [ From Monitor] Respiratory 19 19 19 Rate Blood Pressure 142/55 156/59 129/59 O2 Sat by Pulse 92 93 93 Oximetry 02/24/21 02/24/21 02/24/21 05:30 05:45 06:00 Temperature Pulse Rate 115 H 117 H 117 H Pulse Rate [ From Monitor] Respiratory 20 21 20 Rate Blood Pressure 142/57 159/56 136/58 O2 Sat by Pulse 93 92 93 Oximetry 02/24/21 02/24/21 02/24/21 06:16 06:30 06:45 Temperature Pulse Rate 125 H 118 H 118 H Pulse Rate [ From Monitor] Respiratory 21 20 20 Rate Blood Pressure 139/64 141/57 125/50 O2 Sat by Pulse 84 89 88 Oximetry 02/24/21 02/24/21 02/24/21 07:00 07:15 07:30 Temperature Pulse Rate 117 H 118 H 117 H Pulse Rate [ From Monitor] Respiratory 21 19 20 Rate Blood Pressure 143/51 138/59 138/54 O2 Sat by Pulse 90 87 96 Oximetry 02/24/21 02/24/21 02/24/21 07:45 08:00 08:08 Temperature Pulse Rate 116 H 117 H 119 H Pulse Rate [ 118 H From Monitor] Respiratory 19 20 Rate Blood Pressure 146/51 148/56 148/56 O2 Sat by Pulse 96 96 95 Oximetry 02/24/21 02/24/21 02/24/21 08:15 08:30 08:45 Temperature Pulse Rate 120 H 117 H 118 H Pulse Rate [ From Monitor] Respiratory 20 21 21 Rate Blood Pressure 152/54 130/50 152/53 O2 Sat by Pulse 95 96 95 Oximetry 02/24/21 02/24/21 02/24/21 09:00 09:30 09:45 Temperature Pulse Rate 120 H 119 H 118 H Pulse Rate [ From Monitor] Respiratory 20 21 20 Rate Blood Pressure 132/50 152/52 142/51 O2 Sat by Pulse 95 95 95 Oximetry 02/24/21 10:00 Temperature Pulse Rate 117 H Pulse Rate [ From Monitor] Respiratory 20 Rate Blood Pressure 139/52 O2 Sat by Pulse 95 Oximetry Constitutional: other (intubated, sedated, on ventilator) Eyes: non-icteric ENT: oropharynx moist Neck: supple, other (large in circumference) Effort: normal Ascultation: Bilateral: diminished breath sounds, rales, other (coarse BS bilaterally) Percussion: Bilateral: dull (bases) Cardiovascular: other (RRR with no mrg) Gastrointestinal: normoactive bowel sounds, soft, non-tender, non-distended Integumentary: normal Extremities: no cyanosis, pink and warm, anasarca Neurologic: unable to assess Psychiatric: other (unable to assess) CBC and BMP: 02/22/21 04:00 02/23/21 Unknown ABG, PT/INR, D-dimer: ABG ABG pH 7.275 (7.320-7.450) L 02/24/21 04:00 POC ABG pCO2 37.6 mmHg (32.0-48.0) 02/24/21 04:00 POC ABG pO2 103.1 mmHg (83-108) 02/24/21 04:00 POC ABG HCO3 17.1 02/24/21 04:00 ABG O2 Saturation 97.8 (0-100) 02/24/21 04:00 PT/INR, D-dimer PT 19.5 Sec. (12.2-14.9) H 02/20/21 Unknown INR 1.60 (0.87-1.13) H 02/20/21 Unknown Abnormal lab findings: Abnormal Labs 02/12/21 02/12/21 02/12/21 10:45 11:59 12:20 WBC RBC Hgb Hct MCHC RDW Plt Count Lymph % (Auto) [place] % (Auto) Lymph # (Auto) [place] # (Auto) Seg Neutrophils % Seg Neuts % (Manual) Lymphocytes % (Manual) Seg Neutrophils # Seg Neutrophils # Man Lymphocytes # (Manual) Monocytes # (Manual) Basophils # (Manual) PT INR APTT Heparin Anti-Xa Level ABG pH 7.265 L POC ABG pCO2 49.9 H POC ABG pO2 168.3 H ABG Hemoglobin 10.1 L ABG Oxyhemoglobin 98.5 H ABG Sodium ABG Potassium ABG Chloride ABG Glucose 330 H Carboxyhemoglobin 0.3 L Sodium Potassium Chloride Carbon Dioxide BUN Creatinine Glucose POC Glucose 291 H Hemoglobin A1c Lactic Acid Calcium Direct Bilirubin Troponin T 0.058 H NT-Pro-B Natriuret Pep Albumin LDL Cholesterol Direct Arterial Blood Glucose 330 H Arterial Blood Ionized Calcium Urine WBC (Auto) Urine Creatinine Urine Total Protein Crossmatch 02/12/21 02/12/21 02/12/21 12:20 12:20 12:20 WBC RBC Hgb Hct MCHC RDW Plt Count Lymph % (Auto) [place] % (Auto) Lymph # (Auto) [place] # (Auto) Seg Neutrophils % Seg Neuts % (Manual) Lymphocytes % (Manual) Seg Neutrophils # Seg Neutrophils # Man Lymphocytes # (Manual) Monocytes # (Manual) Basophils # (Manual) PT INR APTT 22.9 L Heparin Anti-Xa Level ABG pH POC ABG pCO2 POC ABG pO2 ABG Hemoglobin ABG Oxyhemoglobin ABG Sodium ABG Potassium ABG Chloride ABG Glucose Carboxyhemoglobin Sodium Potassium Chloride Carbon Dioxide 21 L BUN 20 H Creatinine 1.7 H Glucose 278 H POC Glucose Hemoglobin A1c Lactic Acid 4.50 H* Calcium Direct Bilirubin 0.3 H Troponin T 0.056 H NT-Pro-B Natriuret Pep Albumin 3.4 L LDL Cholesterol Direct 40 L Arterial Blood Glucose Arterial Blood Ionized Calcium Urine WBC (Auto) Urine Creatinine Urine Total Protein Crossmatch 02/12/21 02/12/21 02/12/21 12:20 14:25 16:46 WBC 30.4 H RBC 3.34 L Hgb 9.2 L Hct MCHC 29 L RDW 17.0 H Plt Count 458 H Lymph % (Auto) [place] % (Auto) Lymph # (Auto) [place] # (Auto) Seg Neutrophils % Seg Neuts % (Manual) 90.5 H Lymphocytes % (Manual) 0.5 L Seg Neutrophils # Seg Neutrophils # Man 27.5 H Lymphocytes # (Manual) 0.2 L Monocytes # (Manual) 1.8 H Basophils # (Manual) 0.2 H PT INR APTT Heparin Anti-Xa Level ABG pH POC ABG pCO2 POC ABG pO2 ABG Hemoglobin ABG Oxyhemoglobin ABG Sodium ABG Potassium ABG Chloride ABG Glucose Carboxyhemoglobin Sodium Potassium Chloride Carbon Dioxide BUN Creatinine Glucose POC Glucose Hemoglobin A1c Lactic Acid 4.50 H* Calcium Direct Bilirubin Troponin T NT-Pro-B Natriuret Pep 6717 H Albumin LDL Cholesterol Direct Arterial Blood Glucose Arterial Blood Ionized Calcium Urine WBC (Auto) Urine Creatinine Urine Total Protein Crossmatch 02/12/21 02/12/21 02/12/21 16:56 20:35 Unknown WBC RBC Hgb Hct MCHC RDW Plt Count Lymph % (Auto) [place] % (Auto) Lymph # (Auto) [place] # (Auto) Seg Neutrophils % Seg Neuts % (Manual) Lymphocytes % (Manual) Seg Neutrophils # Seg Neutrophils # Man Lymphocytes # (Manual) Monocytes # (Manual) Basophils # (Manual) PT INR APTT Heparin Anti-Xa Level ABG pH 7.275 L POC ABG pCO2 POC ABG pO2 185.8 H ABG Hemoglobin 9.5 L ABG Oxyhemoglobin 98.6 H ABG Sodium ABG Potassium 4.7 H ABG Chloride ABG Glucose 330 H Carboxyhemoglobin 0.3 L Sodium Potassium Chloride Carbon Dioxide BUN Creatinine Glucose POC Glucose 307 H Hemoglobin A1c Lactic Acid Calcium Direct Bilirubin Troponin T NT-Pro-B Natriuret Pep Albumin LDL Cholesterol Direct Arterial Blood Glucose 330 H Arterial Blood Ionized Calcium Urine WBC (Auto) 42.0 H Urine Creatinine Urine Total Protein Crossmatch 02/13/21 02/13/21 02/13/21 00:50 08:09 08:53 WBC RBC Hgb Hct MCHC RDW Plt Count Lymph % (Auto) [place] % (Auto) Lymph # (Auto) [place] # (Auto) Seg Neutrophils % Seg Neuts % (Manual) Lymphocytes % (Manual) Seg Neutrophils # Seg Neutrophils # Man Lymphocytes # (Manual) Monocytes # (Manual) Basophils # (Manual) PT INR APTT Heparin Anti-Xa Level ABG pH POC ABG pCO2 POC ABG pO2 110.6 H ABG Hemoglobin 9.1 L ABG Oxyhemoglobin ABG Sodium ABG Potassium 5.0 H ABG Chloride ABG Glucose 338 H Carboxyhemoglobin 0.1 L Sodium Potassium Chloride Carbon Dioxide BUN Creatinine Glucose POC Glucose 278 H 289 H Hemoglobin A1c Lactic Acid Calcium Direct Bilirubin Troponin T NT-Pro-B Natriuret Pep Albumin LDL Cholesterol Direct Arterial Blood Glucose 338 H Arterial Blood Ionized Calcium Urine WBC (Auto) Urine Creatinine Urine Total Protein Crossmatch 02/13/21 02/13/21 02/13/21 10:32 12:19 16:53 WBC RBC Hgb Hct MCHC RDW Plt Count Lymph % (Auto) [place] % (Auto) Lymph # (Auto) [place] # (Auto) Seg Neutrophils % Seg Neuts % (Manual) Lymphocytes % (Manual) Seg Neutrophils # Seg Neutrophils # Man Lymphocytes # (Manual) Monocytes # (Manual) Basophils # (Manual) PT INR APTT Heparin Anti-Xa Level ABG pH POC ABG pCO2 POC ABG pO2 ABG Hemoglobin ABG Oxyhemoglobin ABG Sodium ABG Potassium ABG Chloride ABG Glucose Carboxyhemoglobin Sodium Potassium Chloride Carbon Dioxide BUN Creatinine Glucose POC Glucose 295 H 268 H Hemoglobin A1c Lactic Acid Calcium Direct Bilirubin Troponin T 0.069 H D NT-Pro-B Natriuret Pep Albumin LDL Cholesterol Direct Arterial Blood Glucose Arterial Blood Ionized Calcium Urine WBC (Auto) Urine Creatinine Urine Total Protein Crossmatch 02/13/21 02/13/21 02/13/21 18:00 21:30 Unknown WBC 24.8 H RBC 2.99 L Hgb 8.3 L Hct 26.8 L MCHC RDW 16.4 H Plt Count Lymph % (Auto) [place] % (Auto) Lymph # (Auto) [place] # (Auto) Seg Neutrophils % Seg Neuts % (Manual) 98.0 H Lymphocytes % (Manual) Seg Neutrophils # Seg Neutrophils # Man 24.3 H Lymphocytes # (Manual) 0.0 L Monocytes # (Manual) Basophils # (Manual) PT INR APTT Heparin Anti-Xa Level ABG pH POC ABG pCO2 POC ABG pO2 ABG Hemoglobin ABG Oxyhemoglobin ABG Sodium ABG Potassium ABG Chloride ABG Glucose Carboxyhemoglobin Sodium Potassium Chloride Carbon Dioxide BUN Creatinine Glucose POC Glucose 258 H Hemoglobin A1c Lactic Acid Calcium Direct Bilirubin Troponin T 0.051 H D NT-Pro-B Natriuret Pep Albumin LDL Cholesterol Direct Arterial Blood Glucose Arterial Blood Ionized Calcium Urine WBC (Auto) Urine Creatinine Urine Total Protein Crossmatch 02/13/21 02/13/21 02/14/21 Unknown Unknown 07:11 WBC RBC Hgb Hct MCHC RDW Plt Count Lymph % (Auto) [place] % (Auto) Lymph # (Auto) [place] # (Auto) Seg Neutrophils % Seg Neuts % (Manual) Lymphocytes % (Manual) Seg Neutrophils # Seg Neutrophils # Man Lymphocytes # (Manual) Monocytes # (Manual) Basophils # (Manual) PT INR APTT Heparin Anti-Xa Level ABG pH POC ABG pCO2 POC ABG pO2 ABG Hemoglobin ABG Oxyhemoglobin ABG Sodium ABG Potassium ABG Chloride ABG Glucose Carboxyhemoglobin Sodium Potassium 5.2 H Chloride Carbon Dioxide BUN 29 H Creatinine 2.2 H Glucose 331 H POC Glucose 244 H Hemoglobin A1c 7.0 H Lactic Acid Calcium Direct Bilirubin Troponin T NT-Pro-B Natriuret Pep Albumin 3.1 L LDL Cholesterol Direct Arterial Blood Glucose Arterial Blood Ionized Calcium Urine WBC (Auto) Urine Creatinine Urine Total Protein Crossmatch 02/14/21 02/14/21 02/14/21 07:49 07:49 11:37 WBC 25.1 H RBC 2.99 L Hgb 8.5 L Hct 26.6 L MCHC RDW 16.3 H Plt Count Lymph % (Auto) [place] % (Auto) Lymph # (Auto) [place] # (Auto) Seg Neutrophils % Seg Neuts % (Manual) Lymphocytes % (Manual) Seg Neutrophils # Seg Neutrophils # Man Lymphocytes # (Manual) Monocytes # (Manual) Basophils # (Manual) PT INR APTT Heparin Anti-Xa Level ABG pH POC ABG pCO2 POC ABG pO2 ABG Hemoglobin ABG Oxyhemoglobin ABG Sodium ABG Potassium ABG Chloride ABG Glucose Carboxyhemoglobin Sodium Potassium Chloride Carbon Dioxide BUN 39 H Creatinine 2.1 H Glucose 253 H POC Glucose 229 H Hemoglobin A1c Lactic Acid Calcium Direct Bilirubin Troponin T NT-Pro-B Natriuret Pep Albumin LDL Cholesterol Direct Arterial Blood Glucose Arterial Blood Ionized Calcium Urine WBC (Auto) Urine Creatinine Urine Total Protein Crossmatch 02/14/21 02/14/21 02/15/21 17:04 21:25 05:50 WBC 14.4 H RBC 2.69 L Hgb 7.4 L Hct 24.0 L MCHC RDW 16.3 H Plt Count Lymph % (Auto) [place] % (Auto) Lymph # (Auto) [place] # (Auto) Seg Neutrophils % Seg Neuts % (Manual) Lymphocytes % (Manual) Seg Neutrophils # Seg Neutrophils # Man Lymphocytes # (Manual) Monocytes # (Manual) Basophils # (Manual) PT INR APTT Heparin Anti-Xa Level ABG pH POC ABG pCO2 POC ABG pO2 ABG Hemoglobin ABG Oxyhemoglobin ABG Sodium ABG Potassium ABG Chloride ABG Glucose Carboxyhemoglobin Sodium Potassium Chloride Carbon Dioxide BUN Creatinine Glucose POC Glucose 141 H 121 H Hemoglobin A1c Lactic Acid Calcium Direct Bilirubin Troponin T NT-Pro-B Natriuret Pep Albumin LDL Cholesterol Direct Arterial Blood Glucose Arterial Blood Ionized Calcium Urine WBC (Auto) Urine Creatinine Urine Total Protein Crossmatch 02/15/21 02/15/21 02/15/21 05:50 07:35 09:09 WBC RBC Hgb Hct MCHC RDW Plt Count Lymph % (Auto) [place] % (Auto) Lymph # (Auto) [place] # (Auto) Seg Neutrophils % Seg Neuts % (Manual) Lymphocytes % (Manual) Seg Neutrophils # Seg Neutrophils # Man Lymphocytes # (Manual) Monocytes # (Manual) Basophils # (Manual) PT INR APTT Heparin Anti-Xa Level ABG pH 7.272 L POC ABG pCO2 53.9 H POC ABG pO2 78.7 L ABG Hemoglobin 8.8 L ABG Oxyhemoglobin 93.0 L ABG Sodium ABG Potassium ABG Chloride ABG Glucose 197 H Carboxyhemoglobin 1.8 H Sodium Potassium Chloride 107.1 H Carbon Dioxide BUN 44 H Creatinine 2.3 H Glucose 162 H POC Glucose 182 H Hemoglobin A1c Lactic Acid Calcium Direct Bilirubin Troponin T NT-Pro-B Natriuret Pep Albumin LDL Cholesterol Direct Arterial Blood Glucose 197 H Arterial Blood Ionized Calcium Urine WBC (Auto) Urine Creatinine Urine Total Protein Crossmatch 02/15/21 02/15/21 02/15/21 11:30 11:40 16:07 WBC RBC Hgb Hct MCHC RDW Plt Count Lymph % (Auto) [place] % (Auto) Lymph # (Auto) [place] # (Auto) Seg Neutrophils % Seg Neuts % (Manual) Lymphocytes % (Manual) Seg Neutrophils # Seg Neutrophils # Man Lymphocytes # (Manual) Monocytes # (Manual) Basophils # (Manual) PT INR APTT Heparin Anti-Xa Level ABG pH POC ABG pCO2 POC ABG pO2 ABG Hemoglobin ABG Oxyhemoglobin ABG Sodium ABG Potassium ABG Chloride ABG Glucose Carboxyhemoglobin Sodium Potassium Chloride Carbon Dioxide BUN Creatinine Glucose POC Glucose 160 H 142 H Hemoglobin A1c Lactic Acid Calcium Direct Bilirubin Troponin T NT-Pro-B Natriuret Pep Albumin LDL Cholesterol Direct Arterial Blood Glucose Arterial Blood Ionized Calcium Urine WBC (Auto) Urine Creatinine Urine Total Protein Crossmatch See Detail 02/15/21 02/16/21 02/16/21 21:52 08:09 11:51 WBC RBC Hgb Hct MCHC RDW Plt Count Lymph % (Auto) [place] % (Auto) Lymph # (Auto) [place] # (Auto) Seg Neutrophils % Seg Neuts % (Manual) Lymphocytes % (Manual) Seg Neutrophils # Seg Neutrophils # Man Lymphocytes # (Manual) Monocytes # (Manual) Basophils # (Manual) PT INR APTT Heparin Anti-Xa Level ABG pH POC ABG pCO2 POC ABG pO2 ABG Hemoglobin ABG Oxyhemoglobin ABG Sodium ABG Potassium ABG Chloride ABG Glucose Carboxyhemoglobin Sodium Potassium Chloride Carbon Dioxide BUN Creatinine Glucose POC Glucose 143 H 167 H 186 H Hemoglobin A1c Lactic Acid Calcium Direct Bilirubin Troponin T NT-Pro-B Natriuret Pep Albumin LDL Cholesterol Direct Arterial Blood Glucose Arterial Blood Ionized Calcium Urine WBC (Auto) Urine Creatinine Urine Total Protein Crossmatch 02/16/21 02/16/21 02/16/21 14:45 14:45 16:29 WBC 15.4 H RBC 3.11 L Hgb 9.1 L Hct 27.8 L MCHC RDW 15.9 H Plt Count Lymph % (Auto) 3.6 L [place] % (Auto) 9.0 H Lymph # (Auto) 0.6 L [place] # (Auto) 1.4 H Seg Neutrophils % 87.3 H Seg Neuts % (Manual) Lymphocytes % (Manual) Seg Neutrophils # 13.4 H Seg Neutrophils # Man Lymphocytes # (Manual) Monocytes # (Manual) Basophils # (Manual) PT INR APTT Heparin Anti-Xa Level ABG pH POC ABG pCO2 POC ABG pO2 ABG Hemoglobin ABG Oxyhemoglobin ABG Sodium ABG Potassium ABG Chloride ABG Glucose Carboxyhemoglobin Sodium Potassium Chloride Carbon Dioxide BUN 53 H Creatinine 2.5 H Glucose 201 H POC Glucose 180 H Hemoglobin A1c Lactic Acid Calcium Direct Bilirubin Troponin T NT-Pro-B Natriuret Pep Albumin LDL Cholesterol Direct Arterial Blood Glucose Arterial Blood Ionized Calcium Urine WBC (Auto) Urine Creatinine Urine Total Protein Crossmatch 02/16/21 02/17/21 02/17/21 21:33 05:38 05:38 WBC 13.4 H RBC 2.91 L Hgb 8.4 L Hct 25.7 L MCHC RDW 15.8 H Plt Count Lymph % (Auto) [place] % (Auto) Lymph # (Auto) [place] # (Auto) Seg Neutrophils % Seg Neuts % (Manual) Lymphocytes % (Manual) Seg Neutrophils # Seg Neutrophils # Man Lymphocytes # (Manual) Monocytes # (Manual) Basophils # (Manual) PT INR APTT Heparin Anti-Xa Level ABG pH POC ABG pCO2 POC ABG pO2 ABG Hemoglobin ABG Oxyhemoglobin ABG Sodium ABG Potassium ABG Chloride ABG Glucose Carboxyhemoglobin Sodium 146 H Potassium Chloride 108.3 H Carbon Dioxide BUN 55 H Creatinine 2.5 H Glucose 169 H POC Glucose 164 H Hemoglobin A1c Lactic Acid Calcium Direct Bilirubin Troponin T NT-Pro-B Natriuret Pep Albumin LDL Cholesterol Direct Arterial Blood Glucose Arterial Blood Ionized Calcium Urine WBC (Auto) Urine Creatinine Urine Total Protein Crossmatch 02/17/21 02/17/21 02/17/21 07:28 12:12 15:38 WBC RBC Hgb Hct MCHC RDW Plt Count Lymph % (Auto) [place] % (Auto) Lymph # (Auto) [place] # (Auto) Seg Neutrophils % Seg Neuts % (Manual) Lymphocytes % (Manual) Seg Neutrophils # Seg Neutrophils # Man Lymphocytes # (Manual) Monocytes # (Manual) Basophils # (Manual) PT INR APTT Heparin Anti-Xa Level ABG pH POC ABG pCO2 POC ABG pO2 ABG Hemoglobin ABG Oxyhemoglobin ABG Sodium ABG Potassium ABG Chloride ABG Glucose Carboxyhemoglobin Sodium Potassium Chloride Carbon Dioxide BUN Creatinine Glucose POC Glucose 142 H 156 H 161 H Hemoglobin A1c Lactic Acid Calcium Direct Bilirubin Troponin T NT-Pro-B Natriuret Pep Albumin LDL Cholesterol Direct Arterial Blood Glucose Arterial Blood Ionized Calcium Urine WBC (Auto) Urine Creatinine Urine Total Protein Crossmatch 02/17/21 02/18/21 02/18/21 21:42 07:10 07:10 WBC RBC 2.92 L Hgb 8.6 L Hct 26.0 L MCHC RDW 15.8 H Plt Count Lymph % (Auto) 5.8 L [place] % (Auto) Lymph # (Auto) 0.5 L [place] # (Auto) Seg Neutrophils % 86.6 H Seg Neuts % (Manual) Lymphocytes % (Manual) Seg Neutrophils # 8.0 H Seg Neutrophils # Man Lymphocytes # (Manual) Monocytes # (Manual) Basophils # (Manual) PT INR APTT Heparin Anti-Xa Level ABG pH POC ABG pCO2 POC ABG pO2 ABG Hemoglobin ABG Oxyhemoglobin ABG Sodium ABG Potassium ABG Chloride ABG Glucose Carboxyhemoglobin Sodium 150 H Potassium Chloride 110.3 H Carbon Dioxide BUN 63 H Creatinine 2.5 H Glucose 168 H POC Glucose 131 H Hemoglobin A1c Lactic Acid Calcium Direct Bilirubin Troponin T 0.057 H NT-Pro-B Natriuret Pep Albumin LDL Cholesterol Direct Arterial Blood Glucose Arterial Blood Ionized Calcium Urine WBC (Auto) Urine Creatinine Urine Total Protein Crossmatch 02/18/21 02/18/21 02/18/21 08:28 11:51 17:05 WBC RBC Hgb Hct MCHC RDW Plt Count Lymph % (Auto) [place] % (Auto) Lymph # (Auto) [place] # (Auto) Seg Neutrophils % Seg Neuts % (Manual) Lymphocytes % (Manual) Seg Neutrophils # Seg Neutrophils # Man Lymphocytes # (Manual) Monocytes # (Manual) Basophils # (Manual) PT INR APTT Heparin Anti-Xa Level ABG pH POC ABG pCO2 POC ABG pO2 ABG Hemoglobin ABG Oxyhemoglobin ABG Sodium ABG Potassium ABG Chloride ABG Glucose Carboxyhemoglobin Sodium Potassium Chloride Carbon Dioxide BUN Creatinine Glucose POC Glucose 150 H 167 H 144 H Hemoglobin A1c Lactic Acid Calcium Direct Bilirubin Troponin T NT-Pro-B Natriuret Pep Albumin LDL Cholesterol Direct Arterial Blood Glucose Arterial Blood Ionized Calcium Urine WBC (Auto) Urine Creatinine Urine Total Protein Crossmatch 02/18/21 02/19/21 02/19/21 21:47 05:20 07:52 WBC RBC Hgb Hct MCHC RDW Plt Count Lymph % (Auto) [place] % (Auto) Lymph # (Auto) [place] # (Auto) Seg Neutrophils % Seg Neuts % (Manual) Lymphocytes % (Manual) Seg Neutrophils # Seg Neutrophils # Man Lymphocytes # (Manual) Monocytes # (Manual) Basophils # (Manual) PT INR APTT Heparin Anti-Xa Level ABG pH POC ABG pCO2 POC ABG pO2 ABG Hemoglobin ABG Oxyhemoglobin ABG Sodium ABG Potassium ABG Chloride ABG Glucose Carboxyhemoglobin Sodium 150 H Potassium Chloride 109.3 H Carbon Dioxide BUN 72 H Creatinine 2.8 H Glucose 222 H POC Glucose 155 H 221 H Hemoglobin A1c Lactic Acid Calcium Direct Bilirubin Troponin T NT-Pro-B Natriuret Pep Albumin LDL Cholesterol Direct Arterial Blood Glucose Arterial Blood Ionized Calcium Urine WBC (Auto) Urine Creatinine Urine Total Protein Crossmatch 02/19/21 02/19/21 02/19/21 11:36 12:08 17:48 WBC RBC Hgb Hct MCHC RDW Plt Count Lymph % (Auto) [place] % (Auto) Lymph # (Auto) [place] # (Auto) Seg Neutrophils % Seg Neuts % (Manual) Lymphocytes % (Manual) Seg Neutrophils # Seg Neutrophils # Man Lymphocytes # (Manual) Monocytes # (Manual) Basophils # (Manual) PT INR APTT Heparin Anti-Xa Level ABG pH POC ABG pCO2 POC ABG pO2 ABG Hemoglobin 10.3 L ABG Oxyhemoglobin ABG Sodium ABG Potassium ABG Chloride 111.0 H ABG Glucose 217 H Carboxyhemoglobin 0.3 L Sodium Potassium Chloride Carbon Dioxide BUN Creatinine Glucose POC Glucose 206 H 174 H Hemoglobin A1c Lactic Acid Calcium Direct Bilirubin Troponin T NT-Pro-B Natriuret Pep Albumin LDL Cholesterol Direct Arterial Blood Glucose 217 H Arterial Blood Ionized Calcium Urine WBC (Auto) Urine Creatinine Urine Total Protein Crossmatch 02/19/21 02/20/21 02/20/21 21:17 03:17 05:04 WBC RBC Hgb Hct MCHC RDW Plt Count Lymph % (Auto) [place] % (Auto) Lymph # (Auto) [place] # (Auto) Seg Neutrophils % Seg Neuts % (Manual) Lymphocytes % (Manual) Seg Neutrophils # Seg Neutrophils # Man Lymphocytes # (Manual) Monocytes # (Manual) Basophils # (Manual) PT INR APTT Heparin Anti-Xa Level ABG pH 7.480 H POC ABG pCO2 31.3 L POC ABG pO2 194.3 H ABG Hemoglobin 8.9 L ABG Oxyhemoglobin 98.9 H ABG Sodium ABG Potassium ABG Chloride 113.0 H ABG Glucose 118 H Carboxyhemoglobin 0.3 L Sodium Potassium Chloride Carbon Dioxide BUN Creatinine Glucose POC Glucose 161 H 108 H Hemoglobin A1c Lactic Acid Calcium Direct Bilirubin Troponin T NT-Pro-B Natriuret Pep Albumin LDL Cholesterol Direct Arterial Blood Glucose 118 H Arterial Blood Ionized Calcium Urine WBC (Auto) Urine Creatinine Urine Total Protein Crossmatch 02/20/21 02/20/21 02/20/21 05:45 05:45 11:34 WBC 15.4 H RBC 3.04 L Hgb 8.6 L Hct 26.9 L MCHC RDW 16.3 H Plt Count Lymph % (Auto) [place] % (Auto) Lymph # (Auto) [place] # (Auto) Seg Neutrophils % Seg Neuts % (Manual) Lymphocytes % (Manual) Seg Neutrophils # Seg Neutrophils # Man Lymphocytes # (Manual) Monocytes # (Manual) Basophils # (Manual) PT INR APTT Heparin Anti-Xa Level ABG pH POC ABG pCO2 POC ABG pO2 ABG Hemoglobin ABG Oxyhemoglobin ABG Sodium ABG Potassium ABG Chloride ABG Glucose Carboxyhemoglobin Sodium 148 H Potassium 3.4 L Chloride 111.2 H Carbon Dioxide BUN 75 H Creatinine 3.4 H Glucose 112 H POC Glucose 143 H Hemoglobin A1c Lactic Acid Calcium 8.2 L Direct Bilirubin Troponin T 0.075 H D NT-Pro-B Natriuret Pep Albumin LDL Cholesterol Direct Arterial Blood Glucose Arterial Blood Ionized Calcium Urine WBC (Auto) Urine Creatinine Urine Total Protein Crossmatch 02/20/21 02/20/21 02/20/21 17:34 20:45 23:21 WBC RBC Hgb Hct MCHC RDW Plt Count Lymph % (Auto) [place] % (Auto) Lymph # (Auto) [place] # (Auto) Seg Neutrophils % Seg Neuts % (Manual) Lymphocytes % (Manual) Seg Neutrophils # Seg Neutrophils # Man Lymphocytes # (Manual) Monocytes # (Manual) Basophils # (Manual) PT INR APTT Heparin Anti-Xa Level 1.36 H ABG pH POC ABG pCO2 POC ABG pO2 ABG Hemoglobin ABG Oxyhemoglobin ABG Sodium ABG Potassium ABG Chloride ABG Glucose Carboxyhemoglobin Sodium Potassium Chloride Carbon Dioxide BUN Creatinine Glucose POC Glucose 168 H 157 H Hemoglobin A1c Lactic Acid Calcium Direct Bilirubin Troponin T NT-Pro-B Natriuret Pep Albumin LDL Cholesterol Direct Arterial Blood Glucose Arterial Blood Ionized Calcium Urine WBC (Auto) Urine Creatinine Urine Total Protein Crossmatch 02/20/21 02/20/21 02/21/21 Unknown Unknown 02:53 WBC RBC Hgb 8.6 L Hct 27.1 L MCHC RDW Plt Count Lymph % (Auto) [place] % (Auto) Lymph # (Auto) [place] # (Auto) Seg Neutrophils % Seg Neuts % (Manual) Lymphocytes % (Manual) Seg Neutrophils # Seg Neutrophils # Man Lymphocytes # (Manual) Monocytes # (Manual) Basophils # (Manual) PT 19.5 H INR 1.60 H APTT Heparin Anti-Xa Level ABG pH POC ABG pCO2 POC ABG pO2 73.5 L ABG Hemoglobin 8.7 L ABG Oxyhemoglobin 93.7 L ABG Sodium ABG Potassium ABG Chloride 111.0 H ABG Glucose 195 H Carboxyhemoglobin Sodium Potassium Chloride Carbon Dioxide BUN Creatinine Glucose POC Glucose Hemoglobin A1c Lactic Acid Calcium Direct Bilirubin Troponin T NT-Pro-B Natriuret Pep Albumin LDL Cholesterol Direct Arterial Blood Glucose 195 H Arterial Blood Ionized Calcium Urine WBC (Auto) Urine Creatinine Urine Total Protein Crossmatch 02/21/21 02/21/21 02/21/21 05:06 05:58 06:10 WBC 12.8 H RBC 2.91 L Hgb 8.2 L Hct 25.7 L MCHC RDW 16.3 H Plt Count Lymph % (Auto) 9.2 L [place] % (Auto) 7.9 H Lymph # (Auto) [place] # (Auto) 1.0 H Seg Neutrophils % 80.1 H Seg Neuts % (Manual) Lymphocytes % (Manual) Seg Neutrophils # 10.2 H Seg Neutrophils # Man Lymphocytes # (Manual) Monocytes # (Manual) Basophils # (Manual) PT INR APTT Heparin Anti-Xa Level ABG pH POC ABG pCO2 POC ABG pO2 ABG Hemoglobin ABG Oxyhemoglobin ABG Sodium ABG Potassium ABG Chloride ABG Glucose Carboxyhemoglobin Sodium 147 H Potassium Chloride 108.4 H Carbon Dioxide BUN 80 H Creatinine 3.2 H Glucose 220 H POC Glucose 202 H Hemoglobin A1c Lactic Acid Calcium Direct Bilirubin Troponin T 0.086 H NT-Pro-B Natriuret Pep Albumin LDL Cholesterol Direct Arterial Blood Glucose Arterial Blood Ionized Calcium Urine WBC (Auto) Urine Creatinine Urine Total Protein Crossmatch 02/21/21 02/21/21 02/21/21 06:10 11:52 17:49 WBC RBC Hgb Hct MCHC RDW Plt Count Lymph % (Auto) [place] % (Auto) Lymph # (Auto) [place] # (Auto) Seg Neutrophils % Seg Neuts % (Manual) Lymphocytes % (Manual) Seg Neutrophils # Seg Neutrophils # Man Lymphocytes # (Manual) Monocytes # (Manual) Basophils # (Manual) PT INR APTT Heparin Anti-Xa Level 1.07 H ABG pH POC ABG pCO2 POC ABG pO2 ABG Hemoglobin ABG Oxyhemoglobin ABG Sodium ABG Potassium ABG Chloride ABG Glucose Carboxyhemoglobin Sodium Potassium Chloride Carbon Dioxide BUN Creatinine Glucose POC Glucose 240 H 243 H Hemoglobin A1c Lactic Acid Calcium Direct Bilirubin Troponin T NT-Pro-B Natriuret Pep Albumin LDL Cholesterol Direct Arterial Blood Glucose Arterial Blood Ionized Calcium Urine WBC (Auto) Urine Creatinine Urine Total Protein Crossmatch 02/21/21 02/22/21 02/22/21 23:11 03:11 04:00 WBC RBC Hgb Hct MCHC RDW Plt Count Lymph % (Auto) [place] % (Auto) Lymph # (Auto) [place] # (Auto) Seg Neutrophils % Seg Neuts % (Manual) Lymphocytes % (Manual) Seg Neutrophils # Seg Neutrophils # Man Lymphocytes # (Manual) Monocytes # (Manual) Basophils # (Manual) PT INR APTT Heparin Anti-Xa Level ABG pH POC ABG pCO2 POC ABG pO2 80.7 L ABG Hemoglobin 9.7 L ABG Oxyhemoglobin ABG Sodium ABG Potassium ABG Chloride ABG Glucose 315 H Carboxyhemoglobin Sodium Potassium Chloride Carbon Dioxide BUN 83 H Creatinine 3.3 H Glucose 317 H POC Glucose 264 H Hemoglobin A1c Lactic Acid Calcium Direct Bilirubin Troponin T 0.064 H D NT-Pro-B Natriuret Pep Albumin LDL Cholesterol Direct Arterial Blood Glucose 315 H Arterial Blood Ionized Calcium 4.5 L Urine WBC (Auto) Urine Creatinine Urine Total Protein Crossmatch 02/22/21 02/22/21 02/22/21 04:00 05:15 11:12 WBC 15.8 H RBC 3.16 L Hgb 9.0 L Hct 28.4 L MCHC RDW 16.7 H Plt Count Lymph % (Auto) 7.1 L [place] % (Auto) Lymph # (Auto) 1.1 L [place] # (Auto) 1.0 H Seg Neutrophils % 84.7 H Seg Neuts % (Manual) Lymphocytes % (Manual) Seg Neutrophils # 13.4 H Seg Neutrophils # Man Lymphocytes # (Manual) Monocytes # (Manual) Basophils # (Manual) PT INR APTT Heparin Anti-Xa Level ABG pH POC ABG pCO2 POC ABG pO2 ABG Hemoglobin ABG Oxyhemoglobin ABG Sodium ABG Potassium ABG Chloride ABG Glucose Carboxyhemoglobin Sodium Potassium Chloride Carbon Dioxide BUN Creatinine Glucose POC Glucose 298 H 289 H Hemoglobin A1c Lactic Acid Calcium Direct Bilirubin Troponin T NT-Pro-B Natriuret Pep Albumin LDL Cholesterol Direct Arterial Blood Glucose Arterial Blood Ionized Calcium Urine WBC (Auto) Urine Creatinine Urine Total Protein Crossmatch 02/22/21 02/22/21 02/23/21 18:25 23:28 04:00 WBC RBC Hgb Hct MCHC RDW Plt Count Lymph % (Auto) [place] % (Auto) Lymph # (Auto) [place] # (Auto) Seg Neutrophils % Seg Neuts % (Manual) Lymphocytes % (Manual) Seg Neutrophils # Seg Neutrophils # Man Lymphocytes # (Manual) Monocytes # (Manual) Basophils # (Manual) PT INR APTT Heparin Anti-Xa Level ABG pH POC ABG pCO2 POC ABG pO2 ABG Hemoglobin ABG Oxyhemoglobin ABG Sodium ABG Potassium ABG Chloride ABG Glucose Carboxyhemoglobin Sodium Potassium Chloride Carbon Dioxide BUN 94 H Creatinine 3.6 H Glucose 311 H POC Glucose 354 H 325 H Hemoglobin A1c Lactic Acid Calcium 7.3 L Direct Bilirubin Troponin T NT-Pro-B Natriuret Pep Albumin LDL Cholesterol Direct Arterial Blood Glucose Arterial Blood Ionized Calcium Urine WBC (Auto) Urine Creatinine Urine Total Protein Crossmatch 02/23/21 02/23/21 02/23/21 05:18 09:20 14:38 WBC RBC Hgb Hct MCHC RDW Plt Count Lymph % (Auto) [place] % (Auto) Lymph # (Auto) [place] # (Auto) Seg Neutrophils % Seg Neuts % (Manual) Lymphocytes % (Manual) Seg Neutrophils # Seg Neutrophils # Man Lymphocytes # (Manual) Monocytes # (Manual) Basophils # (Manual) PT INR APTT Heparin Anti-Xa Level ABG pH 7.289 L POC ABG pCO2 POC ABG pO2 75.2 L ABG Hemoglobin 8.2 L ABG Oxyhemoglobin 93.5 L ABG Sodium 131.1 L ABG Potassium ABG Chloride ABG Glucose 316 H Carboxyhemoglobin Sodium Potassium Chloride Carbon Dioxide BUN Creatinine Glucose POC Glucose 317 H 322 H Hemoglobin A1c Lactic Acid Calcium Direct Bilirubin Troponin T NT-Pro-B Natriuret Pep Albumin LDL Cholesterol Direct Arterial Blood Glucose 316 H Arterial Blood Ionized Calcium 4.2 L Urine WBC (Auto) Urine Creatinine Urine Total Protein Crossmatch 02/23/21 02/23/21 02/23/21 14:45 17:13 22:56 WBC RBC Hgb Hct MCHC RDW Plt Count Lymph % (Auto) [place] % (Auto) Lymph # (Auto) [place] # (Auto) Seg Neutrophils % Seg Neuts % (Manual) Lymphocytes % (Manual) Seg Neutrophils # Seg Neutrophils # Man Lymphocytes # (Manual) Monocytes # (Manual) Basophils # (Manual) PT INR APTT Heparin Anti-Xa Level 0.81 H ABG pH 7.275 L POC ABG pCO2 POC ABG pO2 ABG Hemoglobin 9.1 L ABG Oxyhemoglobin ABG Sodium 129.7 L ABG Potassium 4.7 H ABG Chloride ABG Glucose 342 H Carboxyhemoglobin 0.4 L Sodium Potassium Chloride Carbon Dioxide BUN Creatinine Glucose POC Glucose 321 H Hemoglobin A1c Lactic Acid Calcium Direct Bilirubin Troponin T NT-Pro-B Natriuret Pep Albumin LDL Cholesterol Direct Arterial Blood Glucose 342 H Arterial Blood Ionized Calcium 4.1 L Urine WBC (Auto) Urine Creatinine Urine Total Protein Crossmatch 02/23/21 02/23/21 02/23/21 22:59 Unknown Unknown WBC RBC Hgb Hct MCHC RDW Plt Count Lymph % (Auto) [place] % (Auto) Lymph # (Auto) [place] # (Auto) Seg Neutrophils % Seg Neuts % (Manual) Lymphocytes % (Manual) Seg Neutrophils # Seg Neutrophils # Man Lymphocytes # (Manual) Monocytes # (Manual) Basophils # (Manual) PT INR APTT Heparin Anti-Xa Level ABG pH POC ABG pCO2 POC ABG pO2 ABG Hemoglobin ABG Oxyhemoglobin ABG Sodium ABG Potassium ABG Chloride ABG Glucose Carboxyhemoglobin Sodium Potassium Chloride Carbon Dioxide BUN Creatinine Glucose POC Glucose 327 H Hemoglobin A1c Lactic Acid Calcium Direct Bilirubin Troponin T NT-Pro-B Natriuret Pep Albumin LDL Cholesterol Direct Arterial Blood Glucose Arterial Blood Ionized Calcium Urine WBC (Auto) Urine Creatinine 161.0 H 161.0 H Urine Total Protein 111 H Crossmatch 02/23/21 02/24/21 02/24/21 Unknown 04:00 05:47 WBC RBC Hgb Hct MCHC RDW Plt Count Lymph % (Auto) [place] % (Auto) Lymph # (Auto) [place] # (Auto) Seg Neutrophils % Seg Neuts % (Manual) Lymphocytes % (Manual) Seg Neutrophils # Seg Neutrophils # Man Lymphocytes # (Manual) Monocytes # (Manual) Basophils # (Manual) PT INR APTT Heparin Anti-Xa Level ABG pH 7.275 L POC ABG pCO2 POC ABG pO2 ABG Hemoglobin 8.6 L ABG Oxyhemoglobin ABG Sodium 127.9 L ABG Potassium 5.5 H ABG Chloride ABG Glucose 448 H Carboxyhemoglobin 0.4 L Sodium 135 L Potassium Chloride Carbon Dioxide BUN 95 H Creatinine 3.6 H Glucose 324 H POC Glucose 422 H Hemoglobin A1c Lactic Acid Calcium 7.3 L Direct Bilirubin Troponin T NT-Pro-B Natriuret Pep Albumin LDL Cholesterol Direct Arterial Blood Glucose 448 H Arterial Blood Ionized Calcium 4.1 L Urine WBC (Auto) Urine Creatinine Urine Total Protein Crossmatch 02/24/21 10:28 WBC RBC Hgb Hct MCHC RDW Plt Count Lymph % (Auto) [place] % (Auto) Lymph # (Auto) [place] # (Auto) Seg Neutrophils % Seg Neuts % (Manual) Lymphocytes % (Manual) Seg Neutrophils # Seg Neutrophils # Man Lymphocytes # (Manual) Monocytes # (Manual) Basophils # (Manual) PT INR APTT Heparin Anti-Xa Level 1.10 H ABG pH POC ABG pCO2 POC ABG pO2 ABG Hemoglobin ABG Oxyhemoglobin ABG Sodium ABG Potassium ABG Chloride ABG Glucose Carboxyhemoglobin Sodium Potassium Chloride Carbon Dioxide BUN Creatinine Glucose POC Glucose Hemoglobin A1c Lactic Acid Calcium Direct Bilirubin Troponin T NT-Pro-B Natriuret Pep Albumin LDL Cholesterol Direct Arterial Blood Glucose Arterial Blood Ionized Calcium Urine WBC (Auto) Urine Creatinine Urine Total Protein Crossmatch
--- NOTE | 2021-02-24 11:22 | Progress Note ---
Assessment and Plan Assessment and plan: This is a 62-year-old female with COPD, CHF, HTN, GERD, breast cancer, arthritis HLD, type 2 diabetes mellitus admitted s/p cardiac arrest with acute exacerbation of congestive heart failure, acute hypoxic respiratory failure, sepsis, acute kidney injury and electrolyte imbalances Neuro- on fentanyl gtt, PERRL Acute metabolic encephalopathy -Fall/aspiration precautions -Reorientation as needed -02/12 CT head shows no acute intracranial abnormality -Likely due to hypoxia and renal disease Anxiety -Xanax prn S/p GLF, per patient in early January -PT/OT consult CV-ST, hypotensive S/p cardiac arrest -02/13 echocardiogram shows left ventricular function moderate to severely decreased, LVEF 20 to 25%, right ventricle systolic function normal, mitral valve annular calcification, thickened and calcified leaflets, mild to moderate mitral valve regurgitation, RVSP 11 mmHg, trace TR, large left pleural effusion with no pericardial effusion -Cardiology consulted, appreciate recommendations Cardiogenic shock -s/p dopamine -Epinephrine, Levophed, vasopressin gtt -Blood pressure monitoring per protocol NSTEMI suspect type II in setting of ANGELA -02/12 troponin 0 0.058, 0.056, 0.069 -Patient received ACLS after PEA arrest -Cardiology consulted, appreciate recommendations Acute on Chronic Systolic heart failure -Presented with a BMP of 6717 -Cardiology consulted, appreciate recommendations -Per cardiology 03/2018 echocardiogram showed ejection fraction of 45 to 50%, trace MR, trace TR -02/13 echocardiogram shows left ventricular function moderate to severely decreased, LVEF 20 to 25%, right ventricle systolic function normal, mitral valve annular calcification, thickened and calcified leaflets, mild to moderate mitral valve regurgitation, RVSP 11 mmHg, trace TR, large left pleural effusion with no pericardial effusion -s/p IV lasix without adequate response s/p milrinone per cardiology -Will try lasix today Atrial fibrillation -Heparin drip -Cardiology consulted Hypotension -Levophed, vasopressin, epinephrine gtt -Blood pressure monitoring per protocol Paroxysmal A. fib -Anticoagulation with heparin drip, follow heparin gtt protocol -Cardiology following h/o Hypertension -Hold home antihypertenisive medication in setting of vasopressor use Hyperlipidemia -Resume home statin Respiratory, Bilateral lungs diminished/ rhonchi to auscultation Acute respiratory failure -S/p mechanical ventilation s/p self extuabtion, weaned from BiPAP -Presently on high flow nasal cannula -Supplemental oxygen as needed -Pulmonary hygiene -SPO2 monitor per protocol Bilateral pleural effusions -evidenced on cxr -s/p lasix -Will attempt lasix today FEN/GI, slight edema Acute kidney injury, progressed to HD, started on 02/23 -Nephrology consulted, appreciate recommendations -Presented with a BUN/creatinine of 1.7/20 which uptrended up to 3.6/95 -Strict urine output -Avoid nephrotoxic medications -Renally dose medications -Daily weights -HD per nephro -No HD today 02/24 or yesterday 02/23 per nephro r/t hypotension -Will try lasix today NAD -strict I&O -asencio ID, febrile on vasopressors Sepsis -s/p abx therapy -Presented with hypoxia, tachycardia, hypotension, -02/12 bilateral x2 no growth to date -02/12 tracheal aspirate with moderate growth of usual respiratory manuela -02/12 urine culture with no growth after 48 hours -02/19 tracheal aspirate with Genie albicans -Febrile today to 102, will reculture Leukocytosis -Trend CBC UTI -02/24 UA with large LE, pyuria -abx therapy with cefepime for 7 days h/o Breast CA Endo, hyperglycemia DM -SSI, long acting insulin (titrate as needed) -Hbg A1C 7 -Acccuchecks q6 -Hypoglycemic protocol -TF (NTR to change for better glycemic control) Skin Bilateral lower extremity skin lacerations -WOCN consulted -Wound care per nursing The high probability of a clinically significant, sudden or life threatening deterioration of the [cardio/respiratory] system(s) required my full and direct attention, intervention and personal management. The aggregate critical care time was [35] minutes. This time is in addition to time spent performing reported procedures but includes the following: [x] Data Review and interpretation [x] Patient assessment and monitoring of vital signs [x] Documentation [x] Medication orders and management DVT/GI prophylaxis: PPI, SCDs to bilateral ultrasound in bed, heparin subcu Disposition: CCU Lines: CVL, saencio, vascath DNR status History Interval history: This is a 62-year-old female with COPD, CHF, HTN, GERD, breast cancer, arthritis HLD, type 2 diabetes mellitus who presented to the emergency department on 02/12 with complaints of severe shortness of breath and upon presentation patient assistance duration was 70% despite being on BiPAP and was electively intubated. After intubation patient had cardiac arrest with PEA and ACLS was initiated for approximately 5 minutes with achievement of ROSC. Patient later self extubated and was placed back on BiPAP. Work-up in the emergency department revealed leukocytosis, lactic acidosis, and CXR showed bilateral pleural effusions with pulmonary edema, elevated proBNP, elevated troponins. Patient was admitted to the hospital service s/p cardiac arrest, acute hypoxic respiratory failure, acute exacerbation of CHF and sepsis with consults to cardiology and [facility]. 02/13: Patient weaned to high flow nasal cannula, echocardiogram pending, Levophed titrated off, COVID-19 PCR negative 02/14: Patient was transferred to stepdown status, per cardiology patient received IV Lasix to help with pleural effusion seen on echocardiogram. Echocardiogram shows EF of 20-25%. Patient was started on Xanax to help with anxiety. Long- acting insulin increased due to persistent hyperglycemia 02/15: Patient placed back on BiPAP, started to have respiratory decompensation. Spoke with cardiology and pulmonology, will start milrinone, continue Lasix, low threshold for reintubation. 02/16: milrinone drip is running, continue 5: Patient seen and examined with at the bedside, patient continues to be very agitated, given sedation, low threshold for reintubation. Diuresis with Lasix. 02/17: Patient remains on continuous BiPAP and milrinone drip. She took off her BiPAP mask this morning which was immediately replaced by respiratory therapist. Patient remains lethargic and slightly restless. H&H remained stable, creatinine continue to trend up-consult nephrology, follow BMP. 02/18/21; patient on Bumex and milrinone drip. Also initiated on D5W at 30 mils per hour as patient unable to eat because she is on continuous BiPAP and sodium level 150 today, repeat BMP tomorrow. Poor prognosis 02/19/21: Patient intubated today and transferred to ICU. Continue to follow clinically, poor prognosis. 02/20/21: platient placed on heparin drip for atrial fib 02/21/21: remains intubated, on heparin drip for afib 02/22/21; discussed with at bedside, updated him with all details and discussed about code status. Patient does understand that patient has very poor prognosis. He will decide about CODE STATUS soon. Patient remains intubated, on heparin drip. Continue supportive care, and tube feeding diet. 02/23: Moseley placed, vascath placed and Nephro will initiate HD. Vasopressor added for persisent hypotension. 02/24: Patient is maxed on levo and vaso, epi added, 120mg lasix. Remains on AC TV 450, R 20, Peep 10, FiO2 70%. BC,UA sent. UA is dirty; culture pending, started on cefepime Hospitalist Physical - Constitutional Vitals: Temp Pulse Resp BP Pulse Ox 100.9 F H 117 H 20 139/52 95 02/24/21 04:00 02/24/21 10:00 02/24/21 10:00 02/24/21 10:00 02/24/21 10:00 General appearance: Present: other (sedated on vent) - EENT Eyes: Present: PERRL - Neck Neck: Absent: masses or JVD, cervical LAD - Respiratory Respiratory effort: normal Respiratory: bilateral: diminished - Cardiovascular Rhythm: regular Heart Sounds: Present: S1 & S2. Absent: systolic murmur, diastolic murmur - Extremities Extremities: no ischemia, pulses intact, pulses symmetrical Extremity abnormal: edema Peripheral Pulses: within normal limits - Abdominal General gastrointestinal: soft, non-tender, non-distended, normal bowel sounds - Integumentary Integumentary: Present: warm, dry - Psychiatric Psychiatric: other (on fentanyl) - Neurologic Neurologic: moves all extremities - Allied Health Allied health notes reviewed: nursing, RT, social work HEART Score - HEART Score EKG: Non-specific Age: > 65 Risk factors: 1-2 risk factors Troponin: Troponin T 0.064 ng/mL (0.00-0.029) H D 02/22/21 04:00 Troponin: < normal limit - Critical Actions Critical Actions: 4-6 pts:12-16.6% risk of adverse cardiac event. Should be admitted Results - Labs CBC & Chem 7: 02/22/21 04:00 02/23/21 Unknown Labs: Laboratory Last Values WBC 15.8 K/mm3 (4.5-11.0) H 02/22/21 04:00 RBC 3.16 M/mm3 (3.65-5.03) L 02/22/21 04:00 Hgb 9.0 gm/dl (10.1-14.3) L 02/22/21 04:00 Hct 28.4 % (30.3-42.9) L 02/22/21 04:00 MCV 90 fl (79-97) 02/22/21 04:00 MCH 29 pg (28-32) 02/22/21 04:00 MCHC 32 % (30-34) 02/22/21 04:00 RDW 16.7 % (13.2-15.2) H 02/22/21 04:00 Plt Count 295 K/mm3 (140-440) 02/22/21 04:00 Lymph % (Auto) 7.1 % (13.4-35.0) L 02/22/21 04:00 [place] % (Auto) 6.5 % (0.0-7.3) 02/22/21 04:00 Eos % (Auto) 1.3 % (0.0-4.3) 02/22/21 04:00 Baso % (Auto) 0.4 % (0.0-1.8) 02/22/21 04:00 Lymph # (Auto) 1.1 K/mm3 (1.2-5.4) L 02/22/21 04:00 [place] # (Auto) 1.0 K/mm3 (0.0-0.8) H 02/22/21 04:00 Eos # (Auto) 0.2 K/mm3 (0.0-0.4) 02/22/21 04:00 Baso # (Auto) 0.1 K/mm3 (0.0-0.1) 02/22/21 04:00 Add Manual Diff Complete 02/13/21 Unknown Total Counted 100 02/13/21 Unknown Seg Neutrophils % 84.7 % (40.0-70.0) H 02/22/21 04:00 Seg Neuts % (Manual) 98.0 % (40.0-70.0) H 02/13/21 Unknown Band Neutrophils % 2.0 % 02/13/21 Unknown Lymphocytes % (Manual) 0.5 % (13.4-35.0) L 02/12/21 14:25 Monocytes % (Manual) 6.0 % (0.0-7.3) 02/12/21 14:25 Basophils % (Manual) 0.5 % (0.0-1.8) 02/12/21 14:25 Metamyelocytes % 1.0 % 02/12/21 14:25 Myelocytes % 0.5 % 02/12/21 14:25 Nucleated RBC % Not Reportable 02/13/21 Unknown Seg Neutrophils # 13.4 K/mm3 (1.8-7.7) H 02/22/21 04:00 Seg Neutrophils # Man 24.3 K/mm3 (1.8-7.7) H 02/13/21 Unknown Band Neutrophils # 0.5 K/mm3 02/13/21 Unknown Lymphocytes # (Manual) 0.0 K/mm3 (1.2-5.4) L 02/13/21 Unknown Abs React Lymphs (Man) 0.0 K/mm3 02/13/21 Unknown Monocytes # (Manual) 0.0 K/mm3 (0.0-0.8) 02/13/21 Unknown Eosinophils # (Manual) 0.0 K/mm3 (0.0-0.4) 02/13/21 Unknown Basophils # (Manual) 0.0 K/mm3 (0.0-0.1) 02/13/21 Unknown Metamyelocytes # 0.0 K/mm3 02/13/21 Unknown Myelocytes # 0.0 K/mm3 02/13/21 Unknown Promyelocytes # 0.0 K/mm3 02/13/21 Unknown Blast Cells # 0.0 K/mm3 02/13/21 Unknown WBC Morphology Not Reportable 02/13/21 Unknown Hypersegmented Neuts Not Reportable 02/13/21 Unknown Hyposegmented Neuts Not Reportable 02/13/21 Unknown Hypogranular Neuts Not Reportable 02/13/21 Unknown Smudge Cells Not Reportable 02/13/21 Unknown Toxic Granulation Not Reportable 02/13/21 Unknown Toxic Vacuolation Not Reportable 02/13/21 Unknown Dohle Bodies Not Reportable 02/13/21 Unknown Pelger-Huet Anomaly Not Reportable 02/13/21 Unknown Dawn Rods Not Reportable 02/13/21 Unknown Platelet Estimate Consistent w auto 02/13/21 Unknown Clumped Platelets Not Reportable 02/13/21 Unknown Plt Clumps, EDTA Not Reportable 02/13/21 Unknown Large Platelets Not Reportable 02/13/21 Unknown Giant Platelets Not Reportable 02/13/21 Unknown Platelet Satelliting Not Reportable 02/13/21 Unknown Plt Morphology Comment Not Reportable 02/13/21 Unknown RBC Morphology Not Reportable 02/13/21 Unknown Dimorphic RBCs Not Reportable 02/13/21 Unknown Polychromasia Not Reportable 02/13/21 Unknown Hypochromasia Not Reportable 02/13/21 Unknown Poikilocytosis Not Reportable 02/13/21 Unknown Anisocytosis Not Reportable 02/13/21 Unknown Microcytosis Not Reportable 02/13/21 Unknown Macrocytosis Not Reportable 02/13/21 Unknown Spherocytes Not Reportable 02/13/21 Unknown Pappenheimer Bodies Not Reportable 02/13/21 Unknown Sickle Cells Not Reportable 02/13/21 Unknown Target Cells Not Reportable 02/13/21 Unknown Tear Drop Cells Not Reportable 02/13/21 Unknown Ovalocytes Few 02/13/21 Unknown Helmet Cells Not Reportable 02/13/21 Unknown Phipps-Ralls Bodies Not Reportable 02/13/21 Unknown Hagaman Rings Not Reportable 02/13/21 Unknown [place] Cells Not Reportable 02/13/21 Unknown Bite Cells Not Reportable 02/13/21 Unknown Crenated Cell Not Reportable 02/13/21 Unknown Elliptocytes Not Reportable 02/13/21 Unknown Acanthocytes (Spur) Not Reportable 02/13/21 Unknown Rouleaux Not Reportable 02/13/21 Unknown Hemoglobin C Crystals Not Reportable 02/13/21 Unknown Schistocytes Not Reportable 02/13/21 Unknown Malaria parasites Not Reportable 02/13/21 Unknown Mayo Bodies Not Reportable 02/13/21 Unknown Hem Pathologist Commnt No 02/13/21 Unknown PT 19.5 Sec. (12.2-14.9) H 02/20/21 Unknown INR 1.60 (0.87-1.13) H 02/20/21 Unknown APTT TNR 02/20/21 Unknown Heparin Anti-Xa Level 1.10 U.I./ml (0.3-0.7) H 02/24/21 10:28 ABG pH 7.275 (7.320-7.450) L 02/24/21 04:00 POC ABG pCO2 37.6 mmHg (32.0-48.0) 02/24/21 04:00 POC ABG pO2 103.1 mmHg (83-108) 02/24/21 04:00 POC ABG HCO3 17.1 02/24/21 04:00 ABG O2 Saturation 97.8 (0-100) 02/24/21 04:00 POC ABG Base Excess -9.0 02/24/21 04:00 ABG Hemoglobin 8.6 (12.0-17.5) L 02/24/21 04:00 ABG Oxyhemoglobin 97.1 (94-98) 02/24/21 04:00 ABG Methemoglobin 0.3 (0.0-1.5) 02/24/21 04:00 ABG Sodium 127.9 mmol/L (136.0-145.0) L 02/24/21 04:00 ABG Potassium 5.5 mmol/L (3.40-4.50) H 02/24/21 04:00 ABG Chloride 102.0 mmol/L (98-107) 02/24/21 04:00 ABG Glucose 448 mg/dL (65-95) H 02/24/21 04:00 ABG Lactate 2.74 (0.18-30.0) 02/12/21 16:56 Carboxyhemoglobin 0.4 (0.5-1.5) L 02/24/21 04:00 FiO2 % 70.0 02/24/21 04:00 Sodium 135 mmol/L (137-145) L 02/23/21 Unknown Potassium 4.9 mmol/L (3.6-5.0) 02/23/21 Unknown Chloride 101.5 mmol/L (98-107) 02/23/21 Unknown Carbon Dioxide 23 mmol/L (22-30) 02/23/21 Unknown Anion Gap 15 mmol/L 02/23/21 Unknown BUN 95 mg/dL (7-17) H 02/23/21 Unknown Creatinine 3.6 mg/dL (0.6-1.2) H 02/23/21 Unknown Estimated GFR 13 ml/min 02/23/21 Unknown BUN/Creatinine Ratio 26 % 02/23/21 Unknown Glucose 324 mg/dL (65-100) H 02/23/21 Unknown POC Glucose 422 mg/dL (70-105) H 02/24/21 05:47 Hemoglobin A1c 7.0 % (4-6) H 02/13/21 Unknown Lactic Acid 0.80 mmol/L (0.7-2.0) 02/13/21 Unknown Calcium 7.3 mg/dL (8.4-10.2) L 02/23/21 Unknown Magnesium 2.30 mg/dL (1.7-2.3) 02/18/21 07:10 Total Bilirubin 0.30 mg/dL (0.1-1.2) 02/13/21 Unknown Direct Bilirubin 0.3 mg/dL (0-0.2) H 02/12/21 12:20 Indirect Bilirubin 0.3 mg/dL 02/12/21 12:20 AST 31 units/L (5-40) 02/13/21 Unknown ALT 18 units/L (7-56) 02/13/21 Unknown Alkaline Phosphatase 55 units/L (35-129) 02/13/21 Unknown Ammonia 39.0 umol/L (25-60) 02/12/21 12:20 Troponin T 0.064 ng/mL (0.00-0.029) H D 02/22/21 04:00 NT-Pro-B Natriuret Pep 6717 pg/mL (0-900) H 02/12/21 12:20 Total Protein 6.4 g/dL (6.3-8.2) 02/13/21 Unknown Albumin 3.1 g/dL (3.9-5) L 02/13/21 Unknown Albumin/Globulin Ratio 0.9 % 02/13/21 Unknown Triglycerides 139 mg/dL (2-149) 02/22/21 04:00 Cholesterol 99 mg/dL (50-199) 02/12/21 12:20 LDL Cholesterol Direct 40 mg/dL (50-130) L 02/12/21 12:20 HDL Cholesterol 42 mg/dL (40-59) 02/12/21 12:20 Cholesterol/HDL Ratio 2.35 % 02/12/21 12:20 Arterial Blood Glucose 448 mg/dL (65-95) H 02/24/21 04:00 Arterial Blood Ionized Calcium 4.1 mg/dL (4.6-5.3) L 02/24/21 04:00 Urine Color Vikki (Yellow) 02/12/21 Unknown Urine Turbidity Cloudy (Clear) 02/12/21 Unknown Urine pH 5.0 (5.0-7.0) 02/12/21 Unknown Ur Specific [place] 1.017 (1.003-1.030) 02/12/21 Unknown Urine Protein >500 mg/dL (Negative) 02/12/21 Unknown Urine Glucose (UA) >=500 mg/dL (Negative) 02/12/21 Unknown Urine Ketones Neg mg/dL (Negative) 02/12/21 Unknown Urine Blood Neg (Negative) 02/12/21 Unknown Urine Nitrite Neg (Negative) 02/12/21 Unknown Urine Bilirubin Neg (Negative) 02/12/21 Unknown Urine Urobilinogen < 2.0 mg/dL (<2.0) 02/12/21 Unknown Ur Leukocyte Esterase Neg (Negative) 02/12/21 Unknown Urine WBC (Auto) 42.0 /HPF (0.0-6.0) H 02/12/21 Unknown Urine RBC (Auto) 2.0 /HPF (0.0-6.0) 02/12/21 Unknown U Epithel Cells (Auto) 5.0 /HPF (0-13.0) 02/12/21 Unknown Hyaline Casts 5 /LPF 02/12/21 Unknown Granular Casts 5 /LPF 02/12/21 Unknown Urine Mucus 1+ /HPF 02/12/21 Unknown Urine Osmolality 334 Mosm/kg 02/23/21 Unknown Urine Creatinine 161.0 mg/dL (0.1-20.0) H 02/23/21 Unknown Urine Creatinine 161.0 mg/dL (0.1-20.0) H 02/23/21 Unknown Protein/Creatinin Ratio 0.69 02/23/21 Unknown Urine Sodium 33 mmol/L 02/23/21 Unknown Urine Sodium 33 mmol/L 02/23/21 Unknown Urine Potassium 52.90 mmol/L 02/23/21 Unknown Urine Urea Nitrogen 256 02/23/21 Unknown Urine Total Protein 111 mg/dL (5-11.8) H 02/23/21 Unknown Coronavirus (PCR) Negative (Negative) 02/12/21 09:17 Hepatitis A IgM Ab Non-reactive (NonReactive) 02/23/21 23:51 Hep Bs Antigen Non-reactive (Negative) 02/23/21 23:51 Hep B Core IgM Ab Non-reactive (NonReactive) 02/23/21 23:51 Hepatitis C Antibody Non-reactive (NonReactive) 02/23/21 23:51 Blood Type A POSITIVE 02/15/21 11:30 Antibody Screen Negative 02/15/21 11:30 Crossmatch See Detail 02/15/21 11:30 Asencio/IV: Voiding Method Indwelling Catheter Active Medications - Current Medications Current Medications: Generic Name Dose Route Start Last Admin Trade Name Freq PRN Reason Stop Dose Admin Acetaminophen 650 mg 02/12/21 20:45 02/24/21 06:28 Acetaminophen 325 Mg Tab PO 650 mg Q4H PRN Administration Pain MILD(1-3)/Fever >100.5/CHAMBERS Lipase/Protease/Amylase 1 each 02/20/21 12:00 Lipase 10,500/Protease 25,000/Amylase 43,750 (Units) Dr Meza FEEDTUBE PRN PRN For Clogged Feeding Tube Aspirin 81 mg 02/17/21 10:00 02/24/21 09:07 Aspirin 81 Mg Tab Chew PO 81 mg QDAY AV Administration Atorvastatin Calcium 40 mg 02/12/21 22:00 02/23/21 21:43 Atorvastatin 40 Mg Tab PO 40 mg QHS AV Administration Dextrose 50 ml 02/13/21 11:30 Dextrose 50% In Water (25gm) 50 Ml Syringe IV Q30MIN PRN Hypoglycemia Protocol Famotidine 20 mg 02/23/21 10:00 02/24/21 09:07 Famotidine 20 Mg Tab PO 20 mg DAILY AV Administration Heparin Sodium (Porcine) 3,900 unit 02/20/21 13:08 Heparin 10,000 Units/10 Ml Vial 40 unit/kg (3900 unit) IV Q6H PRN Anti-Xa Assay < 0.1 units/ml Hydrophilic Ointment 1 applic 02/19/21 10:59 Lip Therapy Vaseline TP Q2HR PRN Dry Lips NORepinephrine/NS 8 MG-250 ML 8 mg in 250 mls @ 3.75 mls/hr 02/19/21 13:00 02/24/21 10:44 Norepinephrine/Ns 8 Mg-250 Ml (Double Conc) IV 30 mcg/min TITRATE AV 56.25 mls/hr Administration Protocol 2 MCG/MIN Heparin Sodium/Sodium Chloride 25,000 unit in 500 mls @ 29 mls/hr 02/20/21 14 :00 02/24/21 11:03 Heparin/ 0.45% Nacl-25,000 Unit/500 Ml IV 0 units/hr TITR AV 0 mls/hr Titration Protocol 1,450 UNITS/HR Fentanyl Citrate 2,000 mcg in 100 mls @ 4.91 mls/hr 02/22/21 20:30 02/24/21 10:49 Fentanyl Drip Premix IV 0 mcg/kg/hr TITR AV 0 mls/hr Titration Protocol 1 MCG/KG/HR Vasopressin 20 unit/ Sodium 101 mls @ 9.09 mls/hr 02/23/21 13:30 02/24/21 11:03 Chloride IV 0.03 units/min TITR AV 9.09 mls/hr Administration Protocol 0.03 UNITS/MIN Epinephrine 8 mg/ Sodium 250 mls @ 3.75 mls/hr 02/24/21 11:00 Chloride IV TITR AV Protocol 2 MCG/MIN Furosemide 120 mg/ Sodium 112 mls @ 220 mls/hr 02/24/21 11:30 Chloride IV 02/24/21 12:01 ONCE AV Insulin Glargine 20 units 02/24/21 08:00 02/24/21 09:01 Insulin Glargine 100 Units/Ml SUB-Q 20 units QAMDIAB AV Administration Insulin Human Lispro 0 unit 02/24/21 14:00 Insulin Lispro 100 Unit/Ml SUB-Q Q4HR AV Protocol Multi-Ingred Cream/Lotion/Oil/Oint 1 applic 02/19/21 10:59 Mineral Oil/Petrolatum, White Ophth Oint 3.5 Gm OU Q4HR PRN Dry Eye(s) Ondansetron HCl 4 mg 02/12/21 20:45 Ondansetron 4 Mg/2 Ml Inj IV Q8H PRN Nausea And Vomiting Phenyleph/Shark Oil/Min Oil/Petrol 1 applic 02/15/21 12:52 Pe/Mo/Pet,Wh 10 Applic/28 Gm Tube [place] Q6HR PRN Hemorrhoids Senna/Docusate Sodium 1 tab 02/19/21 22:00 02/24/21 09:07 Sennosides/Docusate Sodium 8.6/50 Mg Tab FEEDTUBE 1 tab BID AV Administration Simple Syrup 15 ml 02/20/21 12:00 Simple Syrup 15 Ml FEEDTUBE PRN PRN Hypoglycemia Simple Syrup 30 ml 02/20/21 12:00 Simple Syrup 15 Ml FEEDTUBE PRN PRN Hypoglycemia Sodium Bicarbonate 325 mg 02/20/21 12:00 Sodium Bicarbonate 325 Mg Tab FEEDTUBE PRN PRN For Clogged Feeding Tube Sodium Chloride 10 ml 02/12/21 22:00 02/24/21 09:07 Sodium Chloride 0.9% 10 Ml Flush Syringe IV 10 ml BID AV Administration Sodium Chloride 5 ml 02/23/21 11:25 Sodium Chloride 0.9% 500 Ml Ivpb IV PRN PRN ART LINE Nutrition/Malnutrition Assess - Dietary Evaluation Nutrition/Malnutrition Findings: Nutrition Notes Start: 02/13/21 11:14 Freq: Status: Active Protocol: Document 02/23/21 11:58 (Rec: 02/23/21 12:01 [email or web address]) Nutrition Notes Initial or Follow up Reassessment Current Diagnosis COPD,Diabetes,Sepsis, Hypertension,Heart Failure, Respiratory Failure, Hyperlipidemia Current Diet Vital AF 1.2 at 50 ml/hr Labs/Tests Na 135 BUN 95 Cr 3.5 BG 324 Pertinent Medications Norepi Propofol at 2.946 ml/hr Height 5 ft 2 in Weight 98.2 kg [place] Body Weight (kg) 50.00 BMI 39.6 Weight Status Morbidly Obese Subjective/Other Information FU for TF start. Pt tolerating TF. MD states he will increase insulin. If BG stay elevated will change TF. Percent of energy/protein needs met: 98%/90% Burn Absent Trauma Absent Current % PO Negligible Minimum of two criteria Yes Energy Intake (severe) < or equal to 50% Estimated Energy Requirement > or equal to 5 days Fluid Accumulation Mild (non-severe) #2 Nutrition Diagnosis Malnutrition Diagnosis Progress(for reassessment Continues documentation) #1 Nutrition Diagnosis Inadequate oral intake Diagnosis Progress(for reassessment Continues documentation) Is patient on ventilator? Yes Is Patient Ambulatory and/or Out of Bed No REE-([facility]-confined to bed) 1757.748 Kcal/Kg value to use for calculation 15 Approximate Energy Requirements Using 1473 kcal/Kg Calculation Used for Recommendations Kcal/kg Additional Notes Protein: (>2g/kg IBW) greater than 100g Fluid: 1 ml/kcal or per MD Nutrition Intervention Nutrition Support: Vital AF 1.2 at 50 ml/hr Flush 200 ml q4h for hpyernatermia. Once resolved, flush 100 ml q4h. Kcal 1,440 Protein (gm) 90 Fluid (mL) 973 Goal #1 Meet at least 75% of protein and energy needs via TF Anticipated Discharge Needs: Unable to determine at this time Follow-Up By: 02/25/21 Additional Comments FU for TF tolerance and BG
[2021-02-24] MEDS ORDERED: INSULIN LISPRO 100 UNIT/ML SUB-Q ONE (11:27)
[2021-02-24] MEDS: fentaNYL DRIP Premix 2,000 MCG/100 ML BAG IV SCH (11:28)
[2021-02-24] MEDS ORDERED: FUROSEMIDE IV SCH (11:30)
[2021-02-24] MEDS ORDERED: SODIUM CHLORIDE 0.9% IV SCH (11:30)
--- NOTE | 2021-02-24 12:04 | XRay Report ---
CHEST 1 VIEW 02/24/2021 10:56 AM INDICATION / CLINICAL INFORMATION: volume overload. COMPARISON: 02/23/2021 FINDINGS: SUPPORT DEVICES: Stable, satisfactory device positioning. HEART / MEDIASTINUM: No significant abnormality. LUNGS / PLEURA: Diffuse bilateral pulmonary opacities with left effusion No pneumothorax. ADDITIONAL FINDINGS: No significant additional findings. IMPRESSION: 1. Diffuse bilateral pulmonary opacities persist and may be slightly increased with left effusion. Signer Name: Zane Toledo MD Signed: 02/24/2021 12:00 PM Workstation Name: [id number]
--- NOTE | 2021-02-24 12:13 | Progress Note ---
Assessment and Plan Acute Respiratory Failure with pulmonary edema * Patient remains intubated on sedation and unresponsive * Patient is currently being treated with 3 vasopressors to maintain hemodynamic stability. 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 LV is normal size. LV SF is moderate to severely decreased. Severe global hypokinesis of LV. RV SF is normal. Mild to moderate MR. RVSP is 11 mmHg. * GDMT as tolerated. Paroxysmal A. fib in setting of anemia * Anticoagulated on heparin drip * Currently controlled ventricular response, continue to monitor on telemetry NSTEMI suspect type II in setting of ANGELA * Troponins are elevated, subacute and nonspecific. Continue to trend CE's. * Per nephrology patient is unable to go to hemodialysis due to significant hemodynamic instability requiring pressors. * Will trial Lasix 80 mg twice daily IV for volume overload Prognosis remains poor. We will follow This patient was seen in conjunction with Dr Alejandro who agrees with this assessment and plan of care - Patient Problems (1) Acute renal failure Current Visit: Yes Status: Acute Qualifiers: Acute renal failure type: with acute tubular necrosis Qualified Code(s): N17.0 - Acute kidney failure with tubular necrosis (2) Non-ST elevated myocardial infarction (non-STEMI) Current Visit: Yes Status: Acute (3) Acute exacerbation of CHF (congestive heart failure) Current Visit: Yes Status: Acute Qualifiers: Heart failure type: systolic Qualified Code(s): I50.23 - Acute on chronic systolic (congestive) heart failure (4) Acute heart failure Current Visit: Yes Status: Acute Qualifiers: Heart failure type: systolic Qualified Code(s): I50.21 - Acute systolic (congestive) heart failure (5) Acute respiratory failure with hypoxia Current Visit: Yes Status: Acute (6) Bilateral pleural effusion Current Visit: Yes Status: Acute (7) Sepsis Current Visit: Yes Status: Acute Qualifiers: Severe sepsis shock status: with septic shock (8) HLD (hyperlipidemia) Current Visit: Yes Status: Chronic Qualifiers: Hyperlipidemia type: mixed hyperlipidemia Qualified Code(s): E78.2 - Mixed hyperlipidemia (9) T2DM (type 2 diabetes mellitus) Current Visit: Yes Status: Chronic Qualifiers: Diabetes mellitus intermediate insulin use: with terminal makeup operator use Subjective Date of service: 07/13/21 Principal diagnosis: Pulmonary Edema Interval history: Patient is intubated and sedated Telemetry reviewed sinus tach 120 no events Objective Last Vital Signs Temp 100.9 F H 02/24/21 04:00 Pulse 117 H 02/24/21 10:00 Resp 20 02/24/21 10:00 BP 139/52 02/24/21 10:00 Pulse Ox 95 02/24/21 10:00 - Physical Examination General: Other (Intubated sedated) HEENT: Positive: Normocephaly, Mucus Membranes Moist Neck: Positive: neck supple, trachea midline. Negative: JVD/HJR Neuro: Positive: Other (Intubated sedated) Abdomen: Positive: Soft Skin: Negative: Rash Musculoskeletal: other (Intubated sedated) Extremities: Present: lower extr. pulses, +1 Edema, Other (chronic skin changes noted) - Imaging and Cardiology EKG: report reviewed, image reviewed Echo: report reviewed (Echocardiogram reviewed (02/14/2021): LVEF is 20 to 25%. LV is normal size. LV SF is moderate to severely decreased. Severe global hypokinesis of LV. RV SF is normal. Mild to moderate MR. RVSP is 11 mmHg.), other (2018 - EF 45-50%, trace MR) - Telemetry EKG Rhythm: Sinus Tachycardia - EKG Sinus rhythms and dysrhythmias: sinus rhythm Repolarization changes or abnormalities: nonspecific abnormality, ST segment, and/or T wave
[2021-02-24 12:33] LABS: Bacteria,Urine 2+ /HPF (Negative); Bilirubin,Urine NEG (Negative); Blood,Urine LG (Negative); Color,Urine Yellow (Yellow); Urobilinogen,Urine < 2.0 mg/dL (<2.0)
[2021-02-24 12:36] LABS: RBC,Urine > 182.0 /HPF (0.0-6.0); WBC,Urine > 182.0 /HPF (0.0-6.0)
[2021-02-24 13:07] LABS: Mean Corpuscular HGB Conc 30 % (30-34); Mean Corpuscular Volume 93 fl (79-97); Platelet Count 406 K/mm3 (140-440); Red Blood Count 3.02 M/mm3 (3.65-5.03); Red Cell Distribution Width 17.1 % (13.2-15.2)
[2021-02-24 13:09] LABS: Hemoglobin 8.3 gm/dl (10.1-14.3)
[2021-02-24 13:25] LABS: Albumin 1.9 g/dL (3.9-5); Calcium 7.4 mg/dL (8.4-10.2)
[2021-02-24] MEDS ORDERED: CEFEPIME/NS 2 GM/100 ML 2 GM/100 ML BAG IV SCH (14:00)
[2021-02-24] MEDS ORDERED: INSULIN LISPRO 100 UNIT/ML SUB-Q SCH (14:00)
[2021-02-24] MEDS ORDERED: LACTATED RINGERS 1,000 ML ONE (14:16)
[2021-02-24] MEDS ORDERED: LACTATED RINGERS 1,000 ML IV SCH (14:30)
[2021-02-24] MEDS ORDERED: MIDAZOLAM 2 MG/2 ML INJ ONE (14:33)
[2021-02-24] MEDS ORDERED: MIDAZOLAM 5 MG/5 ML INJ MDV IV PRN (14:41)
--- NOTE | 2021-02-24 14:46 | Event Note ---
Date: 02/24/21 1430 Called to room for hypotension to 40, agonal breathing and K of 6.3. agonal breathing noted ST with peaked T waves insulin, D50, ca and bicarb per hyperk regimen MAP 40's pt maxed on NE, vaso and epi at this time LR 1 L Long discussion with pt's regarding his DNR decision and other end of life considerations. We have discussed comfort care and keeping the pt comfortable through what appears to be a terminal event. RN and Grace Martinez witnessed conversation and decision making. Withdrawal of care consent obtained. They have no children and pt/ have no support system close to hosp. RN to call regulatory affairs assistant/spiritual health- not here today. Supportive care provided to . Dr. Gabriel notified. I've spoke with Dr Vyas regarding comfort care per Mr Lynne wishes to keep his comfortable. Orders placed. Given MAP in 30-40's extubation was not done- was imminent. Versed 2 mg IV given. Fentanyl drip remains on. Glyco x 1. Epi, NE and vaso d/c. [address]. at bedside. Dr Gabriel, Noa Daugherty and Asael notified. remains at bedside.
[2021-02-24] MEDS ORDERED: MORPHINE 2 MG/1 ML INJ IV PRN (14:55)
[2021-02-24] MEDS ORDERED: SODIUM POLYSTYRENE 15 GM/60 ML ORAL LIQD PO ONE (15:00)
[2021-02-24] MEDS ORDERED: SODIUM BICARB 8.4% 50 MEQ/50 ML SYRINGE IV ONE (15:00)
[2021-02-24] MEDS ORDERED: CALCIUM GLUCONATE 2,000 MG in SODIUM CHLORIDE 0.9% 100 ML IV ONE (15:00)
[2021-02-24] MEDS ORDERED: DEXTROSE 50% IN WATER (25GM) 50 ML SYRINGE IV ONE (15:00)
[2021-02-24] MEDS ORDERED: INSULIN REGULAR, HUMAN 100 UNITS/1 ML IV SCH (15:00)
[2021-02-24] MEDS ORDERED: MIDAZOLAM 2 MG/2 ML INJ IV ONE (15:00)
[2021-02-24] MEDS ORDERED: GLYCOPYRROLATE 0.4 MG/2 ML INJ IV ONE (15:00)
[2021-02-24 15:10] VITALS: BP 126/44
--- NOTE | 2021-02-24 17:09 | Death Note ---
Note Date of : 02/24/21 Time of : 15:07 Time Pronounced: 15:10 - Preliminary Cause of (problem) (1) Acute exacerbation of CHF (congestive heart failure) Qualifiers: Heart failure type: systolic Qualified Code(s): I50.23 - Acute on chronic systolic (congestive) heart failure Preliminary cause of (2) Acute renal failure Qualifiers: Acute renal failure type: with acute tubular necrosis Qualified Code(s): N17.0 - Acute kidney failure with tubular necrosis Preliminary cause of (3) Acute respiratory failure with hypoxia Preliminary cause of (4) Bilateral pleural effusion Preliminary cause of (5) Non-ST elevated myocardial infarction (non-STEMI) Preliminary cause of (6) Sepsis Qualifiers: Severe sepsis shock status: with septic shock Preliminary cause of (7) Cardiopulmonary arrest Preliminary cause of
--- NOTE | 2021-02-24 17:12 | Death Summary ---
<TREMAYNE PERDOMO - Last Filed: 02/25/21 07:20> Summary - Providers Consults: 02/12/21 10:49 Consult to Dietitian/Nutrition [CONS] Routine Physician Instructions: Reason For Exam: Reason for Consult: Evaluate nutritional intake 02/12/21 20:45 Consult to Physician [CONS] Routine Comment: Consulting Provider: LILIBETH HURST Physician Instructions: Reason For Exam: Acute resp failure 02/13/21 08:10 Consult to Physician [CONS] Routine Comment: Consulting Provider: CATHERINE CARROLL Physician Instructions: Reason For Exam: s/p cardiac arrest 02/17/21 10:20 Consult to Physician [CONS] Routine Comment: called office/ jairon Consulting Provider: KARRI GALDAMEZ Physician Instructions: Reason For Exam: ANGELA 02/19/21 11:00 Consult to Dietitian/Nutrition [CONS] Routine Physician Instructions: Reason For Exam: Reason for Consult: Evaluate nutritional intake 02/22/21 15:50 Consult to Case Management [CONS] Routine Services Needed at Discharge: Other Notified:: Yes Additional Physician Instructions: inpt hospice 02/24/21 11:11 Consult to Dietitian/Nutrition [CONS] Stat Physician Instructions: Reason For Exam: change to nephro tf Reason for Consult: Write/Manage Tube Feeding Attending: REJI CORTES - summary Date of admission: 02/12/21 15:39 Date of : 02/24/21 Reason for admission: s/p cardiac arrest, acute hypoxic resp failure, acute on chronic CHF,sepsis Procedures/treatments rendered: This is a 62-year-old female with COPD, CHF, HTN, GERD, breast cancer, arthritis HLD, type 2 diabetes mellitus who presented to the emergency department on 02/12 with complaints of severe shortness of breath and upon presentation patient assistance duration was 70% despite being on BiPAP and was electively intubated. After intubation patient had cardiac arrest with PEA and ACLS was initiated for approximately 5 minutes with achievement of ROSC. Patient later self extubated and was placed back on BiPAP. Work-up in the emergency department revealed leukocytosis, lactic acidosis, and CXR showed bilateral pleural effusions with pulmonary edema, elevated proBNP, elevated troponins. Patient was admitted to the hospital service s/p cardiac arrest, acute hypoxic respiratory failure, acute exacerbation of CHF and sepsis with consults to cardiology and [facility]. 02/13: Patient weaned to high flow nasal cannula, echocardiogram pending, Levophed titrated off, COVID-19 PCR negative 02/14: Patient was transferred to stepdown status, per cardiology patient received IV Lasix to help with pleural effusion seen on echocardiogram. Echocardiogram shows EF of 20-25%. Patient was started on Xanax to help with anxiety. Long- acting insulin increased due to persistent hyperglycemia 02/15: Patient placed back on BiPAP, started to have respiratory decompensation. Spoke with cardiology and pulmonology, will start milrinone, continue Lasix, low threshold for reintubation. 02/16: milrinone drip is running, continue : Patient seen and examined with at the bedside, patient continues to be very agitated, given sedation, low threshold for reintubation. Diuresis with Lasix. 02/17: Patient remains on continuous BiPAP and milrinone drip. She took off her BiPAP mask this morning which was immediately replaced by respiratory therapist. Patient remains lethargic and slightly restless. H&H remained stable, creatinine continue to trend up-consult nephrology, follow BMP. 02/18/21; patient on Bumex and milrinone drip. Also initiated on D5W at 30 mils per hour as patient unable to eat because she is on continuous BiPAP and sodium level 150 today, repeat BMP tomorrow. Poor prognosis 02/19/21: Patient intubated today and transferred to ICU. Continue to follow clinically, poor prognosis. 02/20/21: platient placed on heparin drip for atrial fib 02/21/21: remains intubated, on heparin drip for afib 02/22/21; discussed with at bedside, updated him with all details and discussed about code status. Patient does understand that patient has very poor prognosis. He will decide about CODE STATUS soon. Patient remains intubated, on heparin drip. Continue supportive care, and tube feeding diet. 02/23: Mallory placed, vascath placed and Nephro will initiate HD. Vasopressor added for persisent hypotension. 02/24: Patient is maxed on levo and vaso, epi added, 120mg lasix. Remains on AC TV 450, R 20, Peep 10, FiO2 70%. BC,UA sent. UA is dirty; culture pending, started on cefepime Neuro- Acute metabolic encephalopathy Anxiety S/p GLF, per patient in early January CV S/p cardiac arrest Cardiogenic shock NSTEMI suspect type II in setting of ANGELA Acute on Chronic Systolic heart failure Atrial fibrillation Hypotension Paroxysmal A. fib h/o Hypertension Hyperlipidemia Respiratory: Acute respiratory failure Bilateral pleural effusions FEN/GI: Acute kidney injury, progressed to HD, started on 02/23 NAD ID: Sepsis Leukocytosis UTI h/o Breast CA Endo DM Skin Bilateral lower extremity skin lacerations - Final diagnosis (1) Acute exacerbation of CHF (congestive heart failure) Qualifiers: Heart failure type: systolic Qualified Code(s): I50.23 - Acute on chronic systolic (congestive) heart failure Note: Final diagnosis: (2) Acute renal failure Qualifiers: Acute renal failure type: with acute tubular necrosis Qualified Code(s): N17.0 - Acute kidney failure with tubular necrosis Note: Final diagnosis: (3) Acute respiratory failure with hypoxia Note: Final diagnosis: (4) Bilateral pleural effusion Note: Final diagnosis: (5) Non-ST elevated myocardial infarction (non-STEMI) Note: Final diagnosis: (6) Sepsis Qualifiers: Severe sepsis shock status: with septic shock Note: Final diagnosis: (7) Cardiopulmonary arrest Note: Final diagnosis: <REJI CORTES R - Last Filed: 02/26/21 09:26> Summary - Providers Consults: 02/12/21 10:49 Consult to Dietitian/Nutrition [CONS] Routine Physician Instructions: Reason For Exam: Reason for Consult: Evaluate nutritional intake 02/12/21 20:45 Consult to Physician [CONS] Routine Comment: Consulting Provider: LILIBETH HURST Physician Instructions: Reason For Exam: Acute resp failure 02/13/21 08:10 Consult to Physician [CONS] Routine Comment: Consulting Provider: CATHERINE CARROLL Physician Instructions: Reason For Exam: s/p cardiac arrest 02/17/21 10:20 Consult to Physician [CONS] Routine Comment: called office/ jairon Consulting Provider: KARRI GALDAMEZ Physician Instructions: Reason For Exam: ANGELA 02/19/21 11:00 Consult to Dietitian/Nutrition [CONS] Routine Physician Instructions: Reason For Exam: Reason for Consult: Evaluate nutritional intake 02/22/21 15:50 Consult to Case Management [CONS] Routine Services Needed at Discharge: Other Notified:: Yes Additional Physician Instructions: inpt hospice 02/24/21 11:11 Consult to Dietitian/Nutrition [CONS] Stat Physician Instructions: Reason For Exam: change to nephro tf Reason for Consult: Write/Manage Tube Feeding Attending: REJI CORTES - summary Date of admission: 02/12/21 15:39 Procedures/treatments rendered: I saw and evaluated the patient. I agree with the findings and the plan of care as documented in the Nurse Practitioner's~note,
[2021-02-24] MEDS ORDERED: FUROSEMIDE 40 MG/4 ML INJ IV SCH (18:00)
[2021-02-24] MEDS ORDERED: FUROSEMIDE 100 MG/10 ML INJ IV SCH (18:00)
--- NOTE | 2021-02-24 19:06 | Event Note ---
Date: 02/24/21 late entry: Dr. Davenport was at bedside to Pronounce TOD at 1507. Beside exam completed. No reflex noted, no cough/gag/ pupils fixed. No S1&S2 auscultated, no PPP, no breath sounds auscultated.
== END 2021-02-24 15:07 | DRG 870 ==
LOC: ED 10:30 → CC1 15:39 → IMCU 02-14 09:10 → CC1 02-19 10:18
PROVIDERS: ADMIT Internal Medicine; ATTEND Internal Medicine
PROC: 4A033R1 Measurement of Arterial Saturation, Peripheral, Percutaneous Approach (ICD-10-PCS; 2021-02-12)
PROC: 02HV33Z Insertion of Infusion Device into Superior Vena Cava, Percutaneous Approach (ICD-10-PCS; 2021-02-12)
PROC: 5A09357 Assistance with Respiratory Ventilation, Less than 24 Consecutive Hours, Continuous Positive Airway Pressure (ICD-10-PCS; 2021-02-12)
PROC: 0BH17EZ Insertion of Endotracheal Airway into Trachea, Via Natural or Artificial Opening (ICD-10-PCS; 2021-02-12)
PROC: 5A1935Z Respiratory Ventilation, Less than 24 Consecutive Hours (ICD-10-PCS; 2021-02-12)
PROC: 5A12012 Performance of Cardiac Output, Single, Manual (ICD-10-PCS; 2021-02-12)
PROC: 5A09357 Assistance with Respiratory Ventilation, Less than 24 Consecutive Hours, Continuous Positive Airway Pressure (ICD-10-PCS; 2021-02-14)
PROC: 5A09357 Assistance with Respiratory Ventilation, Less than 24 Consecutive Hours, Continuous Positive Airway Pressure (ICD-10-PCS; 2021-02-15)
PROC: 30233N1 Transfusion of Nonautologous Red Blood Cells into Peripheral Vein, Percutaneous Approach (ICD-10-PCS; 2021-02-15)
PROC: 5A09357 Assistance with Respiratory Ventilation, Less than 24 Consecutive Hours, Continuous Positive Airway Pressure (ICD-10-PCS; 2021-02-16)
PROC: 5A09357 Assistance with Respiratory Ventilation, Less than 24 Consecutive Hours, Continuous Positive Airway Pressure (ICD-10-PCS; 2021-02-17)
PROC: 5A09357 Assistance with Respiratory Ventilation, Less than 24 Consecutive Hours, Continuous Positive Airway Pressure (ICD-10-PCS; 2021-02-18)
PROC: 0BH17EZ Insertion of Endotracheal Airway into Trachea, Via Natural or Artificial Opening (ICD-10-PCS; principal; 2021-02-19)
PROC: 5A1955Z Respiratory Ventilation, Greater than 96 Consecutive Hours (ICD-10-PCS; 2021-02-19)
PROC: 5A09357 Assistance with Respiratory Ventilation, Less than 24 Consecutive Hours, Continuous Positive Airway Pressure (ICD-10-PCS; 2021-02-19)
PROC: 02HV33Z Insertion of Infusion Device into Superior Vena Cava, Percutaneous Approach (ICD-10-PCS; 2021-02-23)
PROC: 03HB33Z Insertion of Infusion Device into Right Radial Artery, Percutaneous Approach (ICD-10-PCS; 2021-02-23)
PROC: B34HZZZ Ultrasonography of Right Upper Extremity Arteries (ICD-10-PCS; 2021-02-23)
DX: A41.9 Sepsis, unspecified organism (principal); J96.01 Acute respiratory failure with hypoxia; N17.0 Acute kidney failure with tubular necrosis; I50.23 Acute on chronic systolic (congestive) heart failure; R65.21 Severe sepsis with septic shock; I21.A1 Myocardial infarction type 2; G93.41 Metabolic encephalopathy; J90 Pleural effusion, not elsewhere classified; I42.0 Dilated cardiomyopathy; N39.0 Urinary tract infection, site not specified; E87.0 Hyperosmolality and hypernatremia; I46.9 Cardiac arrest, cause unspecified; E66.9 Obesity, unspecified; Z68.39 Body mass index [BMI] 39.0-39.9, adult; E87.5 Hyperkalemia; F41.9 Anxiety disorder, unspecified; Z66 Do not resuscitate; E11.9 Type 2 diabetes mellitus without complications; Z88.0 Allergy status to penicillin; J44.9 Chronic obstructive pulmonary disease, unspecified; Z79.84 Long term (current) use of oral hypoglycemic drugs; Z79.899 Other long term (current) drug therapy; K21.9 Gastro-esophageal reflux disease without esophagitis; Z87.891 Personal history of nicotine dependence; Z82.49 Family history of ischemic heart disease and other diseases of the circulatory system; E78.2 Mixed hyperlipidemia; Z85.3 Personal history of malignant neoplasm of breast; M19.90 Unspecified osteoarthritis, unspecified site; I95.9 Hypotension, unspecified; S81.812A Laceration without foreign body, left lower leg, initial encounter; S81.811A Laceration without foreign body, right lower leg, initial encounter; W18.30XA Fall on same level, unspecified, initial encounter; Y93.89 Activity, other specified; Y92.89 Other specified places as the place of occurrence of the external cause; I48.0 Paroxysmal atrial fibrillation; Z20.822 Contact with and (suspected) exposure to COVID-19; B37.9 Candidiasis, unspecified
CPT/HCPCS: 31500; 36415; 36600; 70450; 71045; 74018; 76770; 80048; 80053; 80061; 80074; 80076; 81001; 82140; 82570; 82805; 82962; 83036; 83735; 83880; 83935; 84133; 84156; 84300; 84478; 84484; 84520; 85007; 85014; 85018; 85025; 85027; 85049; 85520; 85610; 85730; 86850; 86900; 86901; 86920; 87040; 87070; 87086; 87205; 93005; 93306; 94002; 94003; 94640; 94660; 96365; 96366; 96375; G0378; A9270-GY; J0171; J0330; J0360; J0456; J0692; J0696; J1170; J1205; J1250; J1265; J1644; J1815; J1940; J2060; J2250; J2260; J2270; J2543; J2704; J2930; J3010; J3490; J7030; J7040; J7050; J7070; J7120; P9016; U0003